=== PATIENT | female | born 1955 | race Caucasian/White ===

== ENCOUNTER 2018-01-11 10:00 | Emergency (ER) | payer OTHER ==
[2018-01-11 10:03] VITALS: BP 109/57; PULSE 97; RESP 20; TEMP 97.4; O2SAT 100
[2018-01-11 10:17] VITALS: BP 130/69; PULSE 92; RESP 16; O2SAT 100
[2018-01-11] MEDS ORDERED: METF500T PO (10:17)
[2018-01-11] MEDS ORDERED: LEVO50TA4 PO (10:17)
[2018-01-11] MEDS ORDERED: LOSA50TA PO (10:17)
[2018-01-11] MEDS ORDERED: METO25TA3 PO (10:17)
[2018-01-11] MEDS ORDERED: LOVA20TA PO (10:17)
[2018-01-11] MEDS ORDERED: ASPI81CH6 CHEW (10:17)
--- NOTE | 2018-01-11 10:20 | PD ---
HPI Chief Complaint: Abdominal Pain Time Seen by Provider: 10:15 Travel History International Travel<30 days: No Contact w/Intl Traveler<30days: No Traveled to known affect area: No History of Present Illness HPI She comes in complaining of an epigastric type pain that is nonradiating, is rated at about a 5 out of 10, burning to sharp, improves with eating, associated with nausea but not necessarily with vomiting. Patient denies any aggravating factors. Patient denies any associated factors such as fever, back pain, flank pain, chest pain, or diarrhea. The patient has a road cutter, straight cutter machine with a endoscopy scheduled for mid March, also [place] Patient is essentially here for breakthrough pain control States allergy to codeine Past medical history significant for hypothyroidism, hypercholesterolemia, hypertension, appendectomy, hysterectomy, diabetes, lupus, anemia, and rheumatoid arthritis PFSH Past Medical History Anemia: Yes Arthritis: Yes (RA) Autoimmune Disease: Yes (lupus) High Cholesterol: Yes Diabetes: Yes Patient Takes Glucophage: Yes Hypertension: Yes Thyroid Disease: Yes Past Surgical History Abdominal Surgery: Yes (bladder sling) Appendectomy: Yes Gynecologic Surgery: Yes Hysterectomy: Yes Social History Alcohol Use: No Tobacco Use: No Substance Use: No Allergies-Medications (Allergen,Severity, Reaction): Coded Allergies: codeine (Verified Allergy, Intermediate, 01/11/18) Reported Meds & Prescriptions Reported Meds & Active Scripts Active Nystatin-Triamcinolone 100,000-0.1 Unit/Gm Oint 1 Applic TOPICAL Q12HR Tramadol (Tramadol HCl) 50 Mg Tab 50 Mg PO Q8H PRN Reported Levothyroxine (Levothyroxine Sodium) 50 Mcg Tab 50 Mcg PO DAILY Metformin (Metformin HCl) 500 Mg Tab 500 Mg PO BIDPC Aspirin Low Dose (Aspirin) 81 Mg Chew 81 Mg CHEW DAILY Lovastatin 20 Mg Tab 20 Mg PO DAILY Metoprolol Tartrate 25 Mg Tab 25 Mg PO BID Losartan (Losartan Potassium) 50 Mg Tab 50 Mg PO DAILY Review of Systems General / Constitutional: No: Fever Eyes: No: Visual changes HENT: No: Headaches Cardiovascular: No: Chest Pain or Discomfort Respiratory: No: Shortness of Breath Gastrointestinal: Positive: Abdominal Pain Genitourinary: No: Dysuria Musculoskeletal: No: Pain Skin: No Rash Neurologic: No: Weakness Psychiatric: No: Depression Endocrine: No: Polydipsia Hematologic/Lymphatic: No: Easy Bruising Physical Exam Narrative GENERAL: SKIN: Warm and dry. HEAD: Atraumatic. Normocephalic. EYES: Pupils equal and round. No scleral icterus. No injection or drainage. ENT: No nasal bleeding or discharge. Mucous membranes pink and moist. NECK: Trachea midline. No JVD. CARDIOVASCULAR: Regular rate and rhythm. RESPIRATORY: No accessory muscle use. Clear to auscultation. Breath sounds equal bilaterally. GASTROINTESTINAL: Abdomen soft, non-tender, nondistended. MUSCULOSKELETAL: Extremities without clubbing, cyanosis, or edema. No obvious deformities. NEUROLOGICAL: Awake and alert. No obvious cranial nerve deficits. Motor grossly within normal limits. Five out of 5 muscle strength in the arms and legs. Normal speech. PSYCHIATRIC: Appropriate mood and affect; insight and judgment normal. Data Data Last Documented VS Vital Signs Date Time Temp Pulse Resp B/P (MAP) Pulse Ox O2 Delivery O2 Flow Rate FiO2 01/11/18 10:26 18 100 Room Air 01/11/18 10:17 92 01/11/18 10:03 97.4 Orders Orders Complete Blood Count With Diff (01/11/18 10:21) Comprehensive Metabolic Panel (01/11/18 10:21) Lipase (01/11/18 10:21) Prothrombin Time / Inr (Pt) (01/11/18 10:21) Act Partial Throm Time (Ptt) (01/11/18 10:21) Urinalysis - C+S If Indicated (01/11/18 10:21) Ct Abd/Pel W/O Iv Contrast (01/11/18 10:21) Iv Access Insert/Monitor (01/11/18 10:21) Ecg Monitoring (01/11/18 10:21) Oximetry (01/11/18 10:21) NPO (01/11/18 10:21) Sodium Chloride 0.9% Flush (Ns Flush) (01/11/18 10:30) Electrocardiogram (01/11/18 10:21) Labs Laboratory Tests Test 01/11/18 10:45 White Blood Count 3.1 TH/MM3 Red Blood Count 3.46 MIL/MM3 Hemoglobin 9.5 GM/DL Hematocrit 28.9 % Mean Corpuscular Volume 83.6 FL Mean Corpuscular Hemoglobin 27.6 PG Mean Corpuscular Hemoglobin Concent 33.0 % Red Cell Distribution Width 17.4 % Platelet Count 187 TH/MM3 Mean Platelet Volume 8.9 FL Neutrophils (%) (Auto) 85.3 % Lymphocytes (%) (Auto) 8.3 % Monocytes (%) (Auto) 5.7 % Eosinophils (%) (Auto) 0.5 % Basophils (%) (Auto) 0.2 % Neutrophils # (Auto) 2.6 TH/MM3 Lymphocytes # (Auto) 0.3 TH/MM3 Monocytes # (Auto) 0.2 TH/MM3 Eosinophils # (Auto) 0.0 TH/MM3 Basophils # (Auto) 0.0 TH/MM3 CBC Comment DIFF FINAL Differential Comment Prothrombin Time 10.0 SEC Prothromb Time International Ratio 1.0 RATIO Activated Partial Thromboplast Time 25.0 SEC Urine Color YELLOW Urine Turbidity CLEAR Urine pH 6.5 Urine Specific [place] 1.016 Urine Protein 30 mg/dL Urine Glucose (UA) NEG mg/dL Urine Ketones NEG mg/dL Urine Occult Blood TRACE Urine Nitrite NEG Urine Bilirubin NEG Urine Urobilinogen LESS THAN 2.0 MG/DL Urine Leukocyte Esterase NEG Urine RBC 1 /hpf Urine WBC 1 /hpf Urine Squamous Epithelial Cells 1 /hpf Urine Mucus FEW /lpf Microscopic Urinalysis Comment CULT NOT INDICATED Blood Urea Nitrogen 13 MG/DL Creatinine 0.49 MG/DL Random Glucose 114 MG/DL Total Protein 8.4 GM/DL Albumin 2.7 GM/DL Calcium Level 8.5 MG/DL Alkaline Phosphatase 56 U/L Aspartate Amino Transf (AST/SGOT) 34 U/L Alanine Aminotransferase (ALT/SGPT) 24 U/L Total Bilirubin 0.2 MG/DL Sodium Level 135 MEQ/L Potassium Level 4.1 MEQ/L Chloride Level 102 MEQ/L Carbon Dioxide Level 26.5 MEQ/L Anion Gap 7 MEQ/L Estimat Glomerular Filtration Rate 128 ML/MIN Lipase 82 U/L [facility] Medical Decision Making Medical Screen Exam Complete: Yes Emergency Medical Condition: Yes Medical Record Reviewed: Yes Differential Diagnosis Pancreatitis versus hepatitis versus peptic ulcer disease versus perforated ulcer versus small bowel obstruction Narrative Course CBC shows WBC count of 3.1, mild anemia of 9.5/28.9, of particular note the patient has previous older labs in which she has a hemoglobin of 10/30. So this is not a new finding this is a chronic finding. Coagulation profile is within normal limits UA does not show any evidence of a UTI Electrolytes are all within normal limits with the exception of a random glucose of 114, normal kidney, liver and lipase function CT abdomen and pelvis shows exophytic left renal mass likely hemorrhagic cyst, elective outpatient follow-up ultrasound is suggested. This has been explained to the patient and a copy of this report will be made available to the patient for her to take to her primary care. Diagnosis Primary Impression: Dyspepsia Patient Instructions: Diet for Stomach Ulcers and Gastritis (ED), General Instructions, Peptic Ulcer (GEN) Scripts Nystatin-Triamcinolone (Nystatin-Triamcinolone) 100,000-0.1 Unit/Gm Oint 1 APPLIC TOPICAL Q12HR for Infection, #60 GM 2 Refills Prov: Dragan Schultz MD 01/11/18 Tramadol (Tramadol) 50 Mg Tab 50 MG PO Q8H Y for PAIN, #15 TAB 0 Refills Prov: Dragan Schultz MD 01/11/18 Disposition: 01 DISCHARGE HOME Condition: Stable Dragan Schultz MD January 11, 2018 10:20
[2018-01-11 10:26] VITALS: RESP 18; O2SAT 100
[2018-01-11] MEDS ORDERED: SODIUM CHLORIDE 0.9% FLUSH 10 ML FLUSH IV FLUSH PRN (10:30)
[2018-01-11 11:10] LABS: AUTOMATED NEUTROPHIL # 2.6 TH/MM3 (1.8-7.7); BASOPHIL % 0.2 % (0.0-2.0); EOSINOPHIL % 0.5 % (0.0-4.0); HEMATOCRIT 28.9 % (35.0-46.0); HEMOGLOBIN 9.5 GM/DL (11.6-15.3); LYMPH % 8.3 % (9.0-44.0); LYMPHOCYTE # 0.3 TH/MM3 (1.0-4.8); MEAN CELL VOLUME 83.6 FL (80.0-100.0); MEAN CORPUSCULAR HEMOGLOBIN 27.6 PG (27.0-34.0); MEAN PLATELET VOLUME 8.9 FL (7.0-11.0); MONO % 5.7 % (0.0-8.0); MONOCYTE # 0.2 TH/MM3 (0-0.9); NEUT % 85.3 % (16.0-70.0); PLATELET COUNT 187 TH/MM3 (150-450); RED BLOOD COUNT 3.46 MIL/MM3 (4.00-5.30); RED CELL DISTRIBUTION WIDTH 17.4 % (11.6-17.2); WHITE BLOOD COUNT 3.1 TH/MM3 (4.0-11.0)
[2018-01-11] MEDS ORDERED: NYST1OIN TOPICAL (11:22)
[2018-01-11] MEDS ORDERED: TRAM50TA PO (11:22)
--- NOTE | 2018-01-11 11:25 | RADRPT ---
EXAM DATE/TIME: 01/11/2018 11:04 [place] COMPARISON: No previous studies available for comparison. INDICATIONS : Abdominal pain. ORAL CONTRAST: No oral contrast ingested. RADIATION DOSE: 4.51 CTDIvol (mGy) MEDICAL HISTORY : Hypertension. Lupus. Rheumatoid arthritis. SURGICAL HISTORY : Appendectomy. ENCOUNTER: Initial ACUITY: 1 week PAIN SCALE: 5/10 LOCATION: Bilateral anterior TECHNIQUE: Volumetric scanning of the abdomen and pelvis was performed. Using automated exposure control and ad justment of the mA and/or kV according to patient size, radiation dose was kept as low as reasonably achievable to obtain optimal diagnostic quality images. DICOM format image data is available electro nically for review and comparison. FINDINGS: LOWER LUNGS: The visualized lower lungs are clear. LIVER: Homogeneous density without lesion. There is no dilation of the biliary tree. No calcified gallston es. SPLEEN: Normal size without lesion. PANCREAS: Within normal limits. KIDNEYS: 16 mm spontaneously dense mass arising exophytically from the posterior midpole cortex of the left ki dney is likely a hemorrhagic cyst. Follow up would be recommended. The right kidney is unremarkable. There is no evidence of hydronephrosis or stone. ADRENAL GLANDS: Within normal limits. VASCULAR: There is no aortic aneurysm. BOWEL/MESENTERY: The stomach, small bowel, and colon demonstrate no acute abnormality. There is no free intraperitone al air or fluid. ABDOMINAL WALL: Within normal limits. RETROPERITONEUM: There is no lymphadenopathy. BLADDER: No wall thickening or mass. REPRODUCTIVE: Within normal limits. INGUINAL: There is no lymphadenopathy or hernia. MUSCULOSKELETAL: Within normal limits for patient age. CONCLUSION: Exophytic left renal mass is likely hemorrhagic cyst. Elective outpatient followup ultrasound would b e suggested. No acute CT findings in the abdomen or pelvis. Best Montoya MD on January 11, 2018 at 11:16 Board Certified Radiologist. This report was verified electronically.
[2018-01-11 11:34] LABS: ALBUMIN 2.7 GM/DL (3.4-5.0); ALT (GPT) 24 U/L (10-53); AST (GOT) 34 U/L (15-37); BICARBONATE 26.5 MEQ/L (21.0-32.0); BLOOD UREA NITROGEN 13 MG/DL (7-18); CALCIUM 8.5 MG/DL (8.5-10.1); CHLORIDE 102 MEQ/L (98-107); CREATININE 0.49 MG/DL (0.50-1.00); GLOMERULAR FILTRATION RATE 128 ML/MIN (>89); GLUCOSE,RANDOM 114 MG/DL (74-106); SODIUM (NA) 135 MEQ/L (136-145)
[2018-01-11 11:35] LABS: BILIRUBIN, URINE NEG (NEG); BLOOD, URINE TRACE (NEG); GLUCOSE,URINE NEG (NEG); KETONE, URINE NEG (NEG); MUCUS URINE FEW /lpf (OCC); NITRITE,URINE NEG (NEG); PH, URINE 6.5 (5.0-8.5); SQUAMOUS EPITHELIAL CELL URINE 1 /hpf (0-5); URINE COLOR YELLOW (YELLW/STRAW); URINE LEUKOCYTE ESTERASE NEG (NEG)
[2018-01-11 11:36] LABS: ALKALINE PHOSPHATASE 56 U/L (45-117); TOTAL BILIRUBIN ADULT 0.2 MG/DL (0.2-1.0); TOTAL PROTEIN 8.4 GM/DL (6.4-8.2)
--- NOTE | 2018-01-12 19:13 | EKG ---
Date Performed: 01/11/2018 Time Performed: 10:51:44 PTAGE: 62 years EKG: Sinus rhythm LOW QRS VOLTAGE IN EXTREMITY LEADS BORDERLINE ECG INTERPRETATION BASED ON A DEFAULT AGE OF 39 YEARS NO PREVIOUS TRACING DOCTOR: Dalton Randolph Interpretating Date/Time 01/12/2018 19:12:26
== END 2018-01-11 13:39 | disposition home or self-care (01) ==
LOC: NEPC 10:00
DX: R10.13 Epigastric pain (principal); E03.9 Hypothyroidism, unspecified; E11.9 Type 2 diabetes mellitus without complications; E78.00 Pure hypercholesterolemia, unspecified; I10 Essential (primary) hypertension; M32.9 Systemic lupus erythematosus, unspecified; Z79.84 Long term (current) use of oral hypoglycemic drugs
CPT/HCPCS: 74176; 80053; 81001; 83690; 85025; 85610; 85730; 93005

== ENCOUNTER 2018-01-18 07:47 | Observation (INO) | payer SELFPAY ==
[~2018-01-18] VITALS: Ht 144.8 cm; Wt 41.0 kg
[2018-01-18] VITALS (12 sets, daily range): BP systolic 88–112; BP diastolic 54–82; PULSE 82–107; RESP 17–20; TEMP 98.1–100.1; O2SAT 97–100
[~2018-01-18 07:47] MED LIST: ASPI81CH6 CHEW; LEVO50TA4 PO; LOSA50TA PO; LOVA20TA PO; METF500T PO; METO25TA3 PO; NYST1OIN TOPICAL; TRAM50TA PO
[2018-01-18 08:26] LABS: AUTOMATED NEUTROPHIL # 3.1 TH/MM3 (1.8-7.7); BASOPHIL % 0.3 % (0.0-2.0); HEMATOCRIT 25.4 % (35.0-46.0); HEMOGLOBIN 8.4 GM/DL (11.6-15.3); LYMPH % 4.4 % (9.0-44.0); LYMPHOCYTE # 0.2 TH/MM3 (1.0-4.8); MEAN CELL VOLUME 83.5 FL (80.0-100.0); MEAN CORPUSCULAR HEMOGLOBIN 27.6 PG (27.0-34.0); MEAN CORPUSCULAR HGB CONC 33.1 % (32.0-36.0); MEAN PLATELET VOLUME 8.6 FL (7.0-11.0); MONO % 3.7 % (0.0-8.0); MONOCYTE # 0.1 TH/MM3 (0-0.9); NEUT % 91.6 % (16.0-70.0); PLATELET COUNT 152 TH/MM3 (150-450); RED BLOOD COUNT 3.04 MIL/MM3 (4.00-5.30); RED CELL DISTRIBUTION WIDTH 16.9 % (11.6-17.2); WHITE BLOOD COUNT 3.4 TH/MM3 (4.0-11.0)
[2018-01-18 08:52] LABS: ALT (GPT) 35 U/L (10-53)
[2018-01-18 08:55] LABS: ALKALINE PHOSPHATASE 64 U/L (45-117); TOTAL BILIRUBIN ADULT 0.6 MG/DL (0.2-1.0); TOTAL PROTEIN 9.3 GM/DL (6.4-8.2)
[2018-01-18] MEDS ORDERED: SODIUM CHLOR 0.9% 250 ML INJ 250 ML IV ONE ×2 (09:00→10:45)
[2018-01-18 09:16] LABS: ALBUMIN 2.3 GM/DL (3.4-5.0); AST (GOT) 94 U/L (15-37); BICARBONATE 21.7 MEQ/L (21.0-32.0); BLOOD UREA NITROGEN 9 MG/DL (7-18); CALCIUM 8.1 MG/DL (8.5-10.1); CHLORIDE 99 MEQ/L (98-107); CREATININE 0.52 MG/DL (0.50-1.00); GLOMERULAR FILTRATION RATE 119 ML/MIN (>89); GLUCOSE,RANDOM 149 MG/DL (74-106); SODIUM (NA) 130 MEQ/L (136-145)
--- NOTE | 2018-01-18 10:34 | PD ---
HPI Chief Complaint: General Weakness Time Seen by Provider: 08:31 Travel History International Travel<30 days: No Contact w/Intl Traveler<30days: No Traveled to known affect area: No History of Present Illness HPI This 61-year-old woman presents to the emergency department complaining of weakness, worsening, especially with exertion, and feeling out of breath, ongoing for the past several weeks. More short of breath for the past day or so. Heart rate was up in the 130s last night. She was seen in the emergency department recently where she had workup that showed mild anemia was diagnosed with dyspepsia. She is taking NSAIDs regularly for couple weeks leading up to that. She stopped those about a week or so ago. She has extensive medical history including lupus and rheumatoid arthritis. She has been on Plaquenil and prednisone in the past for her rheumatologic disease but has not been for the past 2 years. She is worried she may be having a flare of her lupus. She also has had anemia in the past. Unclear etiology. She has never had transfusion. She is scheduled to have an endoscopy in a month or so. She recently moved to the area and has several specialist including her primary, Dr. Almaraz, since [place], Dr. Chapin who is her room inspector, Dr. Kody Waters who is here pv design engineer, Dr. Brando Friend who is a fieldwork coordinator, all on the left side of the [facility] or in [place]. She has some darker colored loose stools several days ago. Nothing recently. History Past Medical History Narrative Medical Hypothyroidism Hyperlipidemia Hypertension Lupus/RA Diabetes Anemia Social History Alcohol Use: No Tobacco Use: No Allergies-Medications (Allergen,Severity, Reaction): Coded Allergies: codeine (Verified Allergy, Intermediate, 01/18/18) Reported Meds & Prescriptions Reported Meds & Active Scripts Active Nystatin-Triamcinolone 100,000-0.1 Unit/Gm Oint 1 Applic TOPICAL Q12HR Tramadol (Tramadol HCl) 50 Mg Tab 50 Mg PO Q8H PRN Reported Levothyroxine (Levothyroxine Sodium) 50 Mcg Tab 50 Mcg PO DAILY Metformin (Metformin HCl) 500 Mg Tab 500 Mg PO BIDPC Aspirin Low Dose (Aspirin) 81 Mg Chew 81 Mg CHEW DAILY Lovastatin 20 Mg Tab 20 Mg PO DAILY Metoprolol Tartrate 25 Mg Tab 25 Mg PO BID Losartan (Losartan Potassium) 50 Mg Tab 50 Mg PO DAILY Review of Systems Except as stated in HPI: all other systems reviewed are Neg Physical Exam Narrative GENERAL: Weak appearing, frail, 62-year-old woman, no acute distress. SKIN: Focused skin assessment warm/dry. HEAD: Atraumatic. Normocephalic. EYES: Pupils equal and round. No scleral icterus. No injection or drainage. ENT: No nasal bleeding or discharge. Mucous membranes pink and moist. NECK: Trachea midline. No JVD. CARDIOVASCULAR: Regular rate and rhythm. No murmur appreciated. RESPIRATORY: No accessory muscle use. Clear to auscultation. Breath sounds equal bilaterally. GASTROINTESTINAL: Abdomen soft, non-tender, nondistended. Hepatic and splenic margins not palpable. MUSCULOSKELETAL: No obvious deformities. No edema. NEUROLOGICAL: Awake and alert. No obvious cranial nerve deficits. Motor grossly within normal limits. Generally weak. Normal speech. PSYCHIATRIC: Appropriate mood and affect; insight and judgment normal. Data Data Last Documented VS Vital Signs Date Time Temp Pulse Resp B/P (MAP) Pulse Ox O2 Delivery O2 Flow Rate FiO2 01/18/18 08:42 107 17 88/82 (84) 100 Room Air Orders Orders Complete Blood Count With Diff (01/18/18 08:00) Comprehensive Metabolic Panel (01/18/18 08:00) Urinalysis - C+S If Indicated (01/18/18 08:00) Electrocardiogram (01/18/18 ) Type And Screen (01/18/18 08:55) Red Blood Cells (Rbc) (01/18/18 08:55) Sodium Chlor 0.9% 250 Ml Inj (Ns 250 Ml (01/18/18 09:00) Blood Product Administration (01/18/18 10:34) Sodium Chlor 0.9% 250 Ml Inj (Ns 250 Ml (01/18/18 10:45) Admit Order (Ed Use Only) (01/18/18 ) Labs Laboratory Tests Test 01/18/18 08:16 White Blood Count 3.4 TH/MM3 Red Blood Count 3.04 MIL/MM3 Hemoglobin 8.4 GM/DL Hematocrit 25.4 % Mean Corpuscular Volume 83.5 FL Mean Corpuscular Hemoglobin 27.6 PG Mean Corpuscular Hemoglobin Concent 33.1 % Red Cell Distribution Width 16.9 % Platelet Count 152 TH/MM3 Mean Platelet Volume 8.6 FL Neutrophils (%) (Auto) 91.6 % Lymphocytes (%) (Auto) 4.4 % Monocytes (%) (Auto) 3.7 % Eosinophils (%) (Auto) 0.0 % Basophils (%) (Auto) 0.3 % Neutrophils # (Auto) 3.1 TH/MM3 Lymphocytes # (Auto) 0.2 TH/MM3 Monocytes # (Auto) 0.1 TH/MM3 Eosinophils # (Auto) 0.0 TH/MM3 Basophils # (Auto) 0.0 TH/MM3 CBC Comment DIFF FINAL Differential Comment Blood Urea Nitrogen 9 MG/DL Creatinine 0.52 MG/DL Random Glucose 149 MG/DL Total Protein 9.3 GM/DL Albumin 2.3 GM/DL Calcium Level 8.1 MG/DL Alkaline Phosphatase 64 U/L Aspartate Amino Transf (AST/SGOT) 94 U/L Alanine Aminotransferase (ALT/SGPT) 35 U/L Total Bilirubin 0.6 MG/DL Sodium Level 130 MEQ/L Potassium Level 4.0 MEQ/L Chloride Level 99 MEQ/L Carbon Dioxide Level 21.7 MEQ/L Anion Gap 9 MEQ/L Estimat Glomerular Filtration Rate 119 ML/MIN [facility] Medical Decision Making Medical Screen Exam Complete: Yes Emergency Medical Condition: Yes Interpretation(s) My review of EKG: Sinus tachycardia rate 101, normal axis, normal intervals, no acute ischemia. Small voltage. LABS: CBC is remarkable for mild anemia, hemoglobin 8.4, down from 9.5 one week ago CMP general unremarkable, total protein is 9.3 Differential Diagnosis GI bleed, anemia, lupus flare, other Narrative Course Medical decision making Is a 61-year-old woman presents to the emergency department with generalized weakness, increasing shortness of breath, rapid heart rate, borderline low blood pressures. Overall well. Guaiac was negative. History suspicious for NSAID gastritis with worsening anemia and GI bleed. Rheumatologic disease flare also possible. Will recommend admission, transfusion, reassessment. [facility] Point of Care Internal Pos. & Neg. Controls: Passed Fecal Specimen Occult Blood: Negative Diagnosis Primary Impression: Symptomatic anemia Additional Impression: Lupus Admitting Information Admitting Physician Requests: Admit Jorge Driscoll MD January 18, 2018 10:34
[2018-01-18] MEDS ORDERED: ONDANSETRON ODT 4 MG TAB PO PRN (11:00)
[2018-01-18] MEDS ORDERED: ACETAMINOPHEN/HYDROcodone 325 MG/7.5 MG TAB PO PRN (11:00)
[2018-01-18] MEDS ORDERED: MAGNESIUM HYDROXIDE SUSP 30 ML CUP PO PRN (11:00)
[2018-01-18] MEDS ORDERED: methylPREDNISolone SOD SUCC 125 MG/2 ML VIAL IV PUSH ONE (11:00)
[2018-01-18] MEDS ORDERED: SODIUM CHLORIDE 0.9% FLUSH 10 ML FLUSH IV FLUSH PRN (11:00)
[2018-01-18] MEDS ORDERED: NALOXONE HCL 0.4 MG/ML AMP IV PUSH PRN (11:00)
[2018-01-18] MEDS ORDERED: ACETAMINOPHEN/HYDROcodone 325 MG/5 MG TAB PO PRN (11:00)
[2018-01-18 11:38] LABS: BACTERIA, URINE RARE /hpf; BILIRUBIN, URINE NEG (NEG); BLOOD, URINE MOD (NEG); GLUCOSE,URINE NEG (NEG); KETONE, URINE TRACE mg/dL (NEG); MUCUS URINE FEW /lpf (OCC); NITRITE,URINE NEG (NEG); PH, URINE 6.5 (5.0-8.5); TRANSITIONAL EPI CELLS, URINE <1 /hpf; URINE COLOR YELLOW (YELLW/STRAW); URINE LEUKOCYTE ESTERASE TRACE (NEG)
[2018-01-18] MEDS ORDERED: GLUCAGON 1 MG/ML VIAL OTHER PRN (11:45)
[2018-01-18] MEDS ORDERED: DEXTROSE 50% IN WATER 50 ML VIAL(D50) IV PUSH PRN (11:45)
[2018-01-18] MEDS: INSULIN ASPART SUPPLEMENTAL SCALE SQ SCH ×3 (12:00→20:24)
--- NOTE | 2018-01-18 12:02 | HHI.HP ---
[facility] Primary Care Physician Non-Staff Admission Diagnosis Symptomatic anemia, lupus Diagnoses: Travel History International Travel<30 Days: No Contact w/Intl Traveler <30 Da: No Traveled to Known Affected Are: No History of Present Illness Mrs. Anne is a 62 year old female. She has a history of lupus. Other medical conditions include diabetes mellitus type 2 and hypothyroidism. She says that recently she has been feeling weak, increased joint pains, chronic nausea, decreased appetite, fatigue, rash, and weight loss. Previously she had been on Plaquenil and steroids to help control her lupus. She had discontinued these treatments about 1.5 to 2 years ago. For about a year she had felt well but in the past 6 months to 12 months she has had a gradual decline. Recently she has been having shortness of breath which became concerning to her family and she was encouraged to come visit the ER. She was found to be anemic and shows multiple evidence use of lupus exacerbation. Etiology for her anemia may be related to poor p.o. intake combined with inflammation and chronic disease. Further studies are pending. No other complaints at this time. Review of Systems Constitutional: COMPLAINS OF: Fatigue, DENIES: Fever, Night Sweats Eyes: DENIES: Diplopia, Eye inflammation, Eye pain Ears, nose, mouth, throat: DENIES: Hearing loss, Vertigo, Nasal discharge Respiratory: DENIES: Apneas, Cough Cardiovascular: COMPLAINS OF: Dyspnea on Exertion, DENIES: Chest pain, Palpitations, Syncope Gastrointestinal: COMPLAINS OF: Abdominal pain, Nausea, DENIES: Black stools, Bloody stools Musculoskeletal: COMPLAINS OF: Joint pain, Muscle aches, Joint Swelling, Back pain Integumentary: COMPLAINS OF: Rash Hematologic/lymphatic: DENIES: Bruising, Lymphadenopathy Immunologic/allergic: DENIES: Eczema, Urticaria Neurologic: COMPLAINS OF: Abnormal gait, Headache, DENIES: Speech Problems Psychiatric: DENIES: Anxiety, Confusion, Depression Past Family Social History Past Medical History Hypothyroidism Hyperlipidemia Hypertension Lupus/RA Diabetes type II Chronic anemia Past Surgical History Hysterectomy Bladder sling Appendectomy Reported Medications Reported Meds & Active Scripts Active Nystatin-Triamcinolone 100,000-0.1 Unit/Gm Oint 1 Applic TOPICAL Q12HR Tramadol (Tramadol HCl) 50 Mg Tab 50 Mg PO Q8H PRN Reported Levothyroxine (Levothyroxine Sodium) 50 Mcg Tab 50 Mcg PO DAILY Metformin (Metformin HCl) 500 Mg Tab 500 Mg PO BIDPC Aspirin Low Dose (Aspirin) 81 Mg Chew 81 Mg CHEW DAILY Lovastatin 20 Mg Tab 20 Mg PO DAILY Metoprolol Tartrate 25 Mg Tab 25 Mg PO BID Losartan (Losartan Potassium) 50 Mg Tab 50 Mg PO DAILY Allergies: Coded Allergies: codeine (Verified Allergy, Intermediate, 01/18/18) Family History CVA myocardial infarction in father Coronary artery disease in mother Social History No smoking No alcohol abuse No illicit drug abuse Physical Exam Vital Signs Vital Signs Date Time Temp Pulse Resp B/P (MAP) Pulse Ox O2 Delivery O2 Flow Rate FiO2 01/18/18 08:42 107 17 88/82 (84) 100 Room Air 01/18/18 08:02 110 16 100 Room Air Physical Exam GENERAL: NAD, A&Ox3 HEAD: Normocephalic. NECK: Supple, trachea midline. No lymphadenopathy. EYES: No scleral icterus. No injection or drainage. CARDIOVASCULAR: Regular rate and rhythm without murmurs, gallops, or rubs. RESPIRATORY: Breath sounds equal bilaterally. No accessory muscle use. GASTROINTESTINAL: Abdomen soft, non-tender, nondistended. MUSCULOSKELETAL: No cyanosis, or edema. Pain in joints with range of motion and palpation. SKIN: Warm and dry. Rash on back, mild. NEURO: No focal neurological deficitis. Laboratory Laboratory Tests Test 01/18/18 08:16 01/18/18 11:13 White Blood Count 3.4 Red Blood Count 3.04 Hemoglobin 8.4 Hematocrit 25.4 Mean Corpuscular Volume 83.5 Mean Corpuscular Hemoglobin 27.6 Mean Corpuscular Hemoglobin Concent 33.1 Red Cell Distribution Width 16.9 Platelet Count 152 Mean Platelet Volume 8.6 Neutrophils (%) (Auto) 91.6 Lymphocytes (%) (Auto) 4.4 Monocytes (%) (Auto) 3.7 Eosinophils (%) (Auto) 0.0 Basophils (%) (Auto) 0.3 Neutrophils # (Auto) 3.1 Lymphocytes # (Auto) 0.2 Monocytes # (Auto) 0.1 Eosinophils # (Auto) 0.0 Basophils # (Auto) 0.0 CBC Comment DIFF FINAL Differential Comment Blood Urea Nitrogen 9 Creatinine 0.52 Random Glucose 149 Total Protein 9.3 Albumin 2.3 Calcium Level 8.1 Alkaline Phosphatase 64 Aspartate Amino Transf (AST/SGOT) 94 Alanine Aminotransferase (ALT/SGPT) 35 Total Bilirubin 0.6 Sodium Level 130 Potassium Level 4.0 Chloride Level 99 Carbon Dioxide Level 21.7 Anion Gap 9 Estimat Glomerular Filtration Rate 119 Urine Color YELLOW Urine Turbidity CLEAR Urine pH 6.5 Urine Specific [place] 1.016 Urine Protein 300 Urine Glucose (UA) NEG Urine Ketones TRACE Urine Occult Blood MOD Urine Nitrite NEG Urine Bilirubin NEG Urine Urobilinogen LESS THAN 2.0 Urine Leukocyte Esterase TRACE Urine RBC 13 Urine WBC 4 Urine Transitional Epithelial Cells <1 Urine Bacteria RARE Urine Mucus FEW Microscopic Urinalysis Comment CULT NOT INDICATED Result Diagram: 01/18/1881501/18/1816 Caprini VTE Risk Assessment Caprini VTE Risk Assessment: No/Low Risk (score <= 1) Caprini Risk Assessment Model Point Value = 1 Point Value = 2 Point Value = 3 Point Value = 5 Age 41-60 Minor surgery BMI > 25 kg/m2 Swollen legs Varicose veins or History of unexplained or recurrent spontaneous Oral contraceptives or hormone replacement Sepsis (< 1 month) Serious lung disease, including pneumonia (< 1 month) Abnormal pulmonary function Acute myocardial infarction Congestive heart failure (< 1 month) History of inflammatory bowel disease Medical patient at bed rest Age 61-74 Arthroscopic surgery Major open surgery (> 45 min) Laparoscopic surgery (> 45 min) Malignancy Confined to bed (> 72 hours) Immobilizing plaster cast Central venous access Age >= 75 History of VTE Family history of VTE Factor V Leiden Prothrombin [id number] Lupus anticoagulant Anticardiolipin antibodies Elevated serum homocysteine Heparin-induced thrombocytopenia Other congenital or acquired thrombophilia Stroke (< 1 month) Elective arthroplasty Hip, pelvis, or leg fracture Acute spinal cord injury (< 1 month) Prophylaxis Regimen Total Risk Factor Score Risk Level Prophylaxis Regimen 0-1 Low Early ambulation 2 Moderate Order ONE of the following: *Sequential Compression Device (SCD) *Heparin 5000 units SQ BID 3-4 Higher Order ONE of the following medications: *Heparin 5000 units SQ TID *Enoxaparin/Lovenox 40 mg SQ daily (WT < 150 kg, CrCl > 30 mL/min) *Enoxaparin/Lovenox 30 mg SQ daily (WT < 150 kg, CrCl > 10-29 mL/min) *Enoxaparin/Lovenox 30 mg SQ BID (WT < 150 kg, CrCl > 30 mL/min) AND/OR *Sequential Compression Device (SCD) 5 or more Highest Order ONE of the following medications: *Heparin 5000 units SQ TID (Preferred with Epidurals) *Enoxaparin/Lovenox 40 mg SQ daily (WT < 150 kg, CrCl > 30 mL/min) *Enoxaparin/Lovenox 30 mg SQ daily (WT < 150 kg, CrCl > 10-29 mL/min) *Enoxaparin/Lovenox 30 mg SQ BID (WT < 150 kg, CrCl > 30 mL/min) AND *Sequential Compression Device (SCD) Assessment and Plan Problem List: (1) Acute anemia ICD Code: D64.9 - Anemia, unspecified (2) Exacerbation of systemic lupus ICD Code: M32.9 - Systemic lupus erythematosus, unspecified (3) Lupus ICD Code: L93.0 - Discoid lupus erythematosus Status: Acute (4) Symptomatic anemia ICD Code: D64.9 - Anemia, unspecified Status: Acute Assessment and Plan 62-year-old female admitted secondary to lupus exacerbation with findings of acute anemia Lupus exacerbation Rheumatoid arthritis Weakness Start systemic steroids Check echocardiogram for carditis or pericardial effusion, given shortness of breath PT IV Hydration for now Follow for improvements Acute anemia on chronic anemia Shortness of breath 2 units of packed red blood cells ordered for transfusion Echocardiogram as above Check stool for blood Check iron studies Check B12 Hypothyroidism Recent blood check as an outpatient was within normal limits Continue supplementation Follow as an outpatient Hyperlipidemia Continue present treatment Follow as an outpatient Hypertension Continue baseline treatments Follow blood pressures Diabetes mellitus type 2 Follow blood sugars Insulin sliding scale Diabetic diet DVT prophylaxis SCDs Cesar Garza MD January 18, 2018 12:02
[2018-01-18] MEDS: SODIUM CHLOR 0.9% 1000 ML INJ 1,000 ML IV SCH ×2 (12:08→20:24)
[2018-01-18] MEDS: SODIUM CHLORIDE 0.9% FLUSH 10 ML FLUSH IV FLUSH SCH (20:24)
[2018-01-18] MEDS: METOPROLOL TARTRATE 25 MG TAB PO SCH (20:24)
[2018-01-18] MEDS: NYSTATIN/TRIAMCINOLONE OINT 15 GM TUBE TOPICAL SCH (20:27)
--- NOTE | 2018-01-18 22:14 | EKG ---
Date Performed: 01/18/2018 Time Performed: 08:04:04 PTAGE: 62 years EKG: SINUS TACHYCARDIA LOW QRS VOLTAGE ABNORMAL ECG PREVIOUS TRACING : 01/11/2018 10.51 Since the previous tracing, no significant change noted DOCTOR: Blade Cisneros Interpretating Date/Time 01/18/2018 22:13:38
[2018-01-18] MEDS: methylPREDNISolone SOD SUCC 40 MG/1 ML VIAL IV PUSH SCH (23:21)
[2018-01-19] VITALS (11 sets, daily range): BP systolic 113–153; BP diastolic 57–84; PULSE 59–69; RESP 16–18; TEMP 97.5–98; O2SAT 98–100
[2018-01-19] MEDS: LEVOTHYROXINE SODIUM 50 MCG TAB PO SCH (06:41)
[2018-01-19] MEDS: SODIUM CHLOR 0.9% 1000 ML INJ 1,000 ML IV SCH ×2 (06:59→18:13)
[2018-01-19] MEDS: INSULIN ASPART SUPPLEMENTAL SCALE SQ SCH ×4 (08:00→20:27)
[2018-01-19] MEDS: NYSTATIN/TRIAMCINOLONE OINT 15 GM TUBE TOPICAL SCH ×2 (09:00→20:28)
[2018-01-19] MEDS: ASPIRIN 81 MG CHEW TAB CHEW SCH (09:06)
[2018-01-19] MEDS: PRAVASTATIN SOD 20 MG TAB PO SCH (09:06)
[2018-01-19] MEDS: methylPREDNISolone SOD SUCC 40 MG/1 ML VIAL IV PUSH SCH ×2 (09:06→22:33)
[2018-01-19] MEDS: METOPROLOL TARTRATE 25 MG TAB PO SCH ×2 (09:07→20:27)
[2018-01-19] MEDS: LOSARTAN 50 MG TAB PO SCH (09:07)
[2018-01-19] MEDS: SODIUM CHLORIDE 0.9% FLUSH 10 ML FLUSH IV FLUSH SCH ×2 (09:08→20:27)
[2018-01-19 09:42] LABS: AUTOMATED NEUTROPHIL # 1.2 TH/MM3 (1.8-7.7); BASOPHIL % 0.1 % (0.0-2.0); HEMATOCRIT 39.3 % (35.0-46.0); HEMOGLOBIN 13.4 GM/DL (11.6-15.3); LYMPH % 14.2 % (9.0-44.0); LYMPHOCYTE # 0.2 TH/MM3 (1.0-4.8); MEAN CELL VOLUME 84.9 FL (80.0-100.0); MEAN CORPUSCULAR HGB CONC 34.2 % (32.0-36.0); MEAN PLATELET VOLUME 8.7 FL (7.0-11.0); MONO % 5.7 % (0.0-8.0); MONOCYTE # 0.1 TH/MM3 (0-0.9); PLATELET COUNT 112 TH/MM3 (150-450); RED BLOOD COUNT 4.62 MIL/MM3 (4.00-5.30); RED CELL DISTRIBUTION WIDTH 16.6 % (11.6-17.2); WHITE BLOOD COUNT 1.5 TH/MM3 (4.0-11.0)
[2018-01-19 10:27] LABS: ALBUMIN 2.2 GM/DL (3.4-5.0); ALT (GPT) 39 U/L (10-53); AST (GOT) 62 U/L (15-37); BICARBONATE 21.7 MEQ/L (21.0-32.0); BLOOD UREA NITROGEN 20 MG/DL (7-18); CHLORIDE 102 MEQ/L (98-107); CHOLESTEROL 156 MG/DL (120-200); CREATININE 0.52 MG/DL (0.50-1.00); GLOMERULAR FILTRATION RATE 119 ML/MIN (>89); GLUCOSE,RANDOM 139 MG/DL (74-106); SODIUM (NA) 136 MEQ/L (136-145); TRIGLYCERIDES 115 MG/DL (42-150)
[2018-01-19 10:32] LABS: % SATURATION IRON PROFILE 32.5 % (20-50); ALKALINE PHOSPHATASE 67 U/L (45-117); HDL CHOLESTEROL 35.4 MG/DL (40.0-60.0); IRON (FE) 60 MCG/DL (50-170); LDL CHOLESTEROL 98 MG/DL (0-99); TOTAL BILIRUBIN ADULT 0.5 MG/DL (0.2-1.0); TOTAL IRON BINDING CAPACITY 185 MCG/DL (250-450); TOTAL PROTEIN 8.1 GM/DL (6.4-8.2)
[2018-01-19 11:02] LABS: BANDS 4 % (0-6); LYMPHOCYTES 9 % (9-44); MONOCYTES 2 % (0-8); NEUTROPHIL # MANUAL DIFF 1.3 TH/MM3 (1.8-7.7); POLYS (SEG NEUTROPHILS) 84 % (16-70)
[2018-01-19 11:03] LABS: OVALOCYTES 1+ (NORMAL)
[2018-01-19 11:05] LABS: TEARDROP RBCS 1+ (NORMAL)
--- NOTE | 2018-01-19 13:01 | HHI.PR ---
Subjective Remarks Patient is starting to feel better. Leukopenia seen this morning which is progressed from yesterday. No fevers overnight. Echocardiogram pending. Objective Vital Signs Date Time Temp Pulse Resp B/P (MAP) Pulse Ox O2 Delivery O2 Flow Rate FiO2 01/19/18 12:43 98.0 59 16 123/57 (79) 98 01/19/18 11:53 69 01/19/18 07:55 66 01/19/18 07:32 98.0 65 16 124/68 (86) 100 01/19/18 03:52 97.7 68 18 137/65 (89) 100 01/19/18 00:32 97.8 66 18 153/84 (107) 100 01/18/18 20:20 98.7 82 18 112/58 98 01/18/18 19:05 98.9 88 20 110/60 (77) 98 01/18/18 17:47 98.1 90 18 110/63 100 01/18/18 17:21 98.4 86 18 108/59 100 01/18/18 15:53 99.4 106 18 96/54 (68) 97 01/18/18 13:52 98.7 97 18 109/62 99 01/18/18 13:29 98.4 96 18 106/61 100 01/18/18 13:07 98.3 100 18 106/63 100 I/O 01/18/18 01/18/18 01/18/18 01/19/18 01/19/18 01/19/18 07:00 15:00 23:00 07:00 15:00 23:00 Intake Total 10 ml 820 ml Balance 10 ml 820 ml Intake Packed Cells 800 ml Blood Product IV Normal Saline Flush 10 ml 20 ml # Voids 2 Result Diagram: 01/19/18 0844 01/19/18 0844 Objective Remarks GENERAL: NAD, A&Ox3 HEAD: Normocephalic. NECK: Supple, trachea midline. No lymphadenopathy. EYES: No scleral icterus. No injection or drainage. CARDIOVASCULAR: Regular rate and rhythm without murmurs, gallops, or rubs. RESPIRATORY: Breath sounds equal bilaterally. No accessory muscle use. GASTROINTESTINAL: Abdomen soft, non-tender, nondistended. MUSCULOSKELETAL: No cyanosis, or edema. Joint tenderness with range of motion ( decreased). SKIN: Warm and dry. NEURO: No focal neurological deficitis. A/P Problem List: (1) Symptomatic anemia ICD Code: D64.9 - Anemia, unspecified Status: Acute (2) Lupus ICD Code: L93.0 - Discoid lupus erythematosus Status: Acute (3) Acute anemia ICD Code: D64.9 - Anemia, unspecified (4) Exacerbation of systemic lupus ICD Code: M32.9 - Systemic lupus erythematosus, unspecified Assessment and Plan Assessment and Plan 62-year-old female admitted secondary to lupus exacerbation with findings of acute anemia Symptoms are improving. Leukopenia is present and progressive thus far. Leukopenia Etiology may be related to lupus and/or a paroxysmal effect from steroids. Continue to monitor Consider hematology consult if progression continues tomorrow Lupus exacerbation Rheumatoid arthritis Weakness Start systemic steroids Check echocardiogram for carditis or pericardial effusion, given shortness of breath PT IV Hydration for now Follow for improvements Acute anemia on chronic anemia Shortness of breath 2 units of packed red blood cells ordered for transfusion Echocardiogram as above Check stool for blood Check iron studies Check B12 Hypothyroidism Recent blood check as an outpatient was within normal limits Continue supplementation Follow as an outpatient Hyperlipidemia Continue present treatment Follow as an outpatient Hypertension Continue baseline treatments Follow blood pressures Diabetes mellitus type 2 Follow blood sugars Insulin sliding scale Diabetic diet DVT prophylaxis SCDs Cesar Garza MD January 19, 2018 13:01
--- NOTE | 2018-01-19 16:31 | ECHRPT ---
Indication: EF ASSESSMENT CONCLUSIONS Normal left ventricular size. Wall thickness is measured at the upper limits of normal. The left ventricular systolic function is normal with an estimated ejection fraction in the range of 50-55%. No regional wall motion abnormalities are present. No significant valvular abnormalities. BP: 106 / 63 HR: 100 Rhythm: Sinus MEASUREMENTS (Male / Female) Normal Values Technical Quality:Good 2D ECHO LV Diastolic Diameter PLAX 3.9 cm 4.2 - 5.9 / 3.9 - 5.3 cm LV Systolic Diameter PLAX 3.1 cm IVS Diastolic Thickness 0.9 cm 0.6 - 1.0 / 0.6 - 0.9 cm LVPW Diastolic Thickness 0.9 cm 0.6 - 1.0 / 0.6 - 0.9 cm LV Relative Wall Thickness 0.4 RV Internal Dim ED PLAX 2.1 cm LV Ejection Fraction MOD BP 49.2 % >= 55 % LV Cardiac Index MOD BP 2262.4 cm/minm LV Ejection Fraction MOD 4C 48.5 % LV Cardiac Index MOD 4C 2574.5 cm/minm LV Ejection Fraction 4C AL 50.9 % LV Cardiac Index 4C AL 2733.8 cm/minm LV Ejection Fraction MOD 2C 53.1 % LV Cardiac Index MOD 2C 2028.4 cm/minm LV Ejection Fraction 2C AL 57.7 % LV Cardiac Index 2C AL 2228.3 cm/minm FINDINGS LEFT VENTRICLE Normal left ventricular size. Wall thickness is measured at the upper limits of normal. The left ventricular systolic function is normal with an estimated ejection fraction in the range of 50-55%. No regional wall motion abnormalities are present. RIGHT VENTRICLE Normal right ventricular size and systolic function. LEFT ATRIUM The left atrial size is normal. RIGHT ATRIUM The right atrial size is normal. ATRIAL SEPTUM Normal atrial septal thickness without atrial level shunting by limited color doppler interrogation. AORTA The aortic root and proximal ascending aorta are normal in size on limited imaging. MITRAL VALVE Structurally normal mitral valve. No mitral valve stenosis or regurgitation. AORTIC VALVE Trileaflet aortic valve. No aortic valve stenosis or regurgitation. TRICUSPID VALVE Structurally normal tricuspid valve. No tricuspid valve stenosis or regurgitation. PULMONARY VALVE The pulmonary valve is not well visualized. VESSELS The inferior vena cava is normal in size. PERICARDIUM No pericardial effusion. Gaurav Case MD (Electronically Signed) Final Date:19 Jan 2018 16:30
[2018-01-20] VITALS: PULSE 57
[2018-01-20 03:58] VITALS: BP 136/65; PULSE 54; RESP 16; TEMP 97.4; O2SAT 99
[2018-01-20 04:00] VITALS: PULSE 56
[2018-01-20] MEDS: LEVOTHYROXINE SODIUM 50 MCG TAB PO SCH (05:46)
[2018-01-20] MEDS: SODIUM CHLOR 0.9% 1000 ML INJ 1,000 ML IV SCH (05:46)
[2018-01-20 08:00] VITALS: BP 134/69; PULSE 52; RESP 18; TEMP 96; O2SAT 98
[2018-01-20] MEDS: INSULIN ASPART SUPPLEMENTAL SCALE SQ SCH ×2 (08:00→13:00)
[2018-01-20] MEDS: PRAVASTATIN SOD 20 MG TAB PO SCH (08:34)
[2018-01-20] MEDS: ASPIRIN 81 MG CHEW TAB CHEW SCH (08:34)
[2018-01-20] MEDS: LOSARTAN 50 MG TAB PO SCH (08:35)
[2018-01-20] MEDS: SODIUM CHLORIDE 0.9% FLUSH 10 ML FLUSH IV FLUSH SCH (08:35)
[2018-01-20] MEDS: NYSTATIN/TRIAMCINOLONE OINT 15 GM TUBE TOPICAL SCH (09:00)
[2018-01-20 12:00] VITALS: BP 142/72; PULSE 60; RESP 19; TEMP 95.5; O2SAT 100
[2018-01-20 12:36] LABS: AUTOMATED NEUTROPHIL # 2.2 TH/MM3 (1.8-7.7); BASOPHIL % 0.1 % (0.0-2.0); HEMATOCRIT 38.5 % (35.0-46.0); HEMOGLOBIN 12.9 GM/DL (11.6-15.3); LYMPH % 7.4 % (9.0-44.0); LYMPHOCYTE # 0.2 TH/MM3 (1.0-4.8); MEAN CELL VOLUME 86.1 FL (80.0-100.0); MEAN CORPUSCULAR HEMOGLOBIN 28.8 PG (27.0-34.0); MEAN CORPUSCULAR HGB CONC 33.5 % (32.0-36.0); MONO % 8.5 % (0.0-8.0); MONOCYTE # 0.2 TH/MM3 (0-0.9); PLATELET COUNT 145 TH/MM3 (150-450); RED BLOOD COUNT 4.47 MIL/MM3 (4.00-5.30); WHITE BLOOD COUNT 2.7 TH/MM3 (4.0-11.0)
[2018-01-20] MEDS: METOPROLOL TARTRATE 25 MG TAB PO SCH (13:09)
[2018-01-20] MEDS: methylPREDNISolone SOD SUCC 40 MG/1 ML VIAL IV PUSH SCH (13:15)
[2018-01-20] MEDS ORDERED: PRED20 PO (13:31)
[2018-01-20] MEDS ORDERED: PRED10 PO ×2 (13:31→14:00)
[2018-01-20 14:34] LABS: ALBUMIN 2.2 GM/DL (3.4-5.0); AST (GOT) 69 U/L (15-37); BICARBONATE 23.1 MEQ/L (21.0-32.0); BLOOD UREA NITROGEN 24 MG/DL (7-18); CALCIUM 7.9 MG/DL (8.5-10.1); CHLORIDE 107 MEQ/L (98-107); CREATININE 0.58 MG/DL (0.50-1.00); GLOMERULAR FILTRATION RATE 105 ML/MIN (>89); GLUCOSE,RANDOM 157 MG/DL (74-106); SODIUM (NA) 139 MEQ/L (136-145)
--- NOTE | 2018-01-20 14:37 | HHI.DS ---
Discharge Summary Admission Date January 18, 2018 at 11:01 Discharge Date: January 20, 2018 Admitting Diagnosis Symptomatic anemia, lupus (1) Acute anemia ICD Code: D64.9 - Anemia, unspecified (2) Exacerbation of systemic lupus ICD Code: M32.9 - Systemic lupus erythematosus, unspecified (3) Lupus ICD Code: L93.0 - Discoid lupus erythematosus Status: Acute (4) Symptomatic anemia ICD Code: D64.9 - Anemia, unspecified Status: Acute Procedures None Brief History - From Admission Mrs. Anne is a 62 year old female. She has a history of lupus. Other medical conditions include diabetes mellitus type 2 and hypothyroidism. She says that recently she has been feeling weak, increased joint pains, chronic nausea, decreased appetite, fatigue, rash, and weight loss. Previously she had been on Plaquenil and steroids to help control her lupus. She had discontinued these treatments about 1.5 to 2 years ago. For about a year she had felt well but in the past 6 months to 12 months she has had a gradual decline. Recently she has been having shortness of breath which became concerning to her family and she was encouraged to come visit the ER. She was found to be anemic and shows multiple evidence use of lupus exacerbation. Etiology for her anemia may be related to poor p.o. intake combined with inflammation and chronic disease. Further studies are pending. No other complaints at this time. CBC/BMP: 01/20/18 1147 01/20/18 1147 Significant Findings Laboratory Tests Test 01/18/18 08:16 01/18/18 11:13 01/19/18 08:44 01/20/18 11:47 White Blood Count 3.4 TH/MM3 (4.0-11.0) 1.5 TH/MM3 (4.0-11.0) 2.7 TH/MM3 (4.0-11.0) Red Blood Count 3.04 MIL/MM3 (4.00-5.30) Hemoglobin 8.4 GM/DL (11.6-15.3) Hematocrit 25.4 % (35.0-46.0) Neutrophils (%) (Auto) 91.6 % (16.0-70.0) 80.0 % (16.0-70.0) 84.0 % (16.0-70.0) Lymphocytes (%) (Auto) 4.4 % (9.0-44.0) 7.4 % (9.0-44.0) Lymphocytes # (Auto) 0.2 TH/MM3 (1.0-4.8) 0.2 TH/MM3 (1.0-4.8) 0.2 TH/MM3 (1.0-4.8) Random Glucose 149 MG/DL (74-106) 139 MG/DL (74-106) 157 MG/DL (74-106) Total Protein 9.3 GM/DL (6.4-8.2) Albumin 2.3 GM/DL (3.4-5.0) 2.2 GM/DL (3.4-5.0) 2.2 GM/DL (3.4-5.0) Calcium Level 8.1 MG/DL (8.5-10.1) 8.0 MG/DL (8.5-10.1) 7.9 MG/DL (8.5-10.1) Aspartate Amino Transf (AST/SGOT) 94 U/L (15-37) 62 U/L (15-37) 69 U/L (15-37) Sodium Level 130 MEQ/L (136-145) Urine Protein 300 mg/dL (NEG-TRACE) Urine Ketones TRACE mg/dL (NEG) Urine Occult Blood MOD (NEG) Urine Leukocyte Esterase TRACE (NEG) Urine RBC 13 /hpf (0-3) Urine Bacteria RARE /hpf (NONE) Urine Mucus FEW /lpf (OCC) Platelet Count 112 TH/MM3 (150-450) 145 TH/MM3 (150-450) Neutrophils # (Auto) 1.2 TH/MM3 (1.8-7.7) Neutrophils % (Manual) 84 % (16-70) Neutrophils # (Manual) 1.3 TH/MM3 (1.8-7.7) Platelet Estimate LOW (NORMAL) Tear Drop Cells 1+ (NORMAL) Ovalocytes 1+ (NORMAL) Erythrocyte Sedimentation Rate 77 mm/hr (0-30) Blood Urea Nitrogen 20 MG/DL (7-18) 24 MG/DL (7-18) Total Iron Binding Capacity 185 MCG/DL (250-450) C-Reactive Protein 1.30 MG/DL (0.00-0.30) HDL Cholesterol 35.4 MG/DL (40.0-60.0) Monocytes (%) (Auto) 8.5 % (0.0-8.0) Potassium Level 3.3 MEQ/L (3.5-5.1) Hospital Course Mrs. Anne is a 62-year-old female. She was admitted secondary to lupus exacerbation. She also had a low hemoglobin and was transfused packed red blood cells. Her anemia has corrected. With systemic steroids her inflammatory symptoms have improved. She had paroxysmal decrease in her white blood cell count which may be related to lupus and/or steroids. This was monitored overnight and she has an upward trend this morning. She continues to improve in regards to her joint pains and malaise. She will continue on steroids with a taper over 2 weeks. At this point she is medically clear and stable for discharge home. Outpatient follow-up with PCP regarding optimize management for her autoimmunity. Pt Condition on Discharge: Stable Discharge Disposition: Discharge Home Discharge Time: <= 30 minutes Discharge Instructions DIET: Follow Instructions for: As Tolerated, No Restrictions Activities you can perform: Regular-No Restrictions Follow up Referrals: PCP Follow-up - 2 Weeks New Medications: Prednisone (Prednisone) 10 Mg Tab 10 MG PO DIRECTED for Inflammation, #8 TAB 0 Refills Taper Treatment: 1 pill twice a day for Day 1-2 1 pill once a day for Day 3-4 1/2 pill once a day for Day 5-8 Then stop Prednisone (Prednisone) 20 Mg Tab 20 MG PO BID for Inflammation, #14 TAB 0 Refills Use this treatment first, then use taper treatment. Prednisone (Prednisone) 10 Mg Tab 10 MG PO DAILY for Inflammation, #30 TAB 1 Refill Use this only IF Bolus and Taper of prednisone fails. Continued Medications: Aspirin (Aspirin Low Dose) 81 Mg Chew 81 MG CHEW DAILY, TAB 0 Refills Levothyroxine (Levothyroxine) 50 Mcg Tab 50 MCG PO DAILY for Thyroid, #30 TAB 0 Refills Losartan (Losartan) 50 Mg Tab 50 MG PO DAILY for Blood Pressure Management, #30 TAB 0 Refills Lovastatin (Lovastatin) 20 Mg Tab 20 MG PO DAILY for Cholesterol Management, #30 TAB 0 Refills Metformin (Metformin) 500 Mg Tab 500 MG PO BIDPC for Blood Sugar Management, #60 TAB 0 Refills Metoprolol Tartrate (Metoprolol Tartrate) 25 Mg Tab 25 MG PO BID, #60 TAB 0 Refills Nystatin-Triamcinolone (Nystatin-Triamcinolone) 100,000-0.1 Unit/Gm Oint 1 APPLIC TOPICAL Q12HR for Infection, #60 GM 2 Refills Tramadol (Tramadol) 50 Mg Tab 50 MG PO Q8H PRN for PAIN, #15 TAB 0 Refills Cesar Garza MD January 20, 2018 14:37
[2018-01-20 14:43] LABS: ALKALINE PHOSPHATASE 68 U/L (45-117); ALT (GPT) 52 U/L (10-53); TOTAL BILIRUBIN ADULT 0.2 MG/DL (0.2-1.0); TOTAL PROTEIN 7.5 GM/DL (6.4-8.2)
[2018-01-20] MEDS ORDERED: POTASSIUM CHLORIDE 10 MEQ CONTROLLED RELEASE TAB PO ONE (14:45)
== END 2018-01-20 14:55 | disposition home or self-care (01) ==
LOC: NEPE 07:47 → NEDA 11:01 → NEPGCP 12:01
PROVIDERS: ADMIT Hospitalist; ATTEND Hospitalist
DX: D64.9 Anemia, unspecified (principal); M32.9 Systemic lupus erythematosus, unspecified; R06.02 Shortness of breath; R10.13 Epigastric pain; M06.9 Rheumatoid arthritis, unspecified; E03.9 Hypothyroidism, unspecified; E78.5 Hyperlipidemia, unspecified; I10 Essential (primary) hypertension; E11.9 Type 2 diabetes mellitus without complications; M25.50 Pain in unspecified joint; R11.0 Nausea; R63.4 Abnormal weight loss
CPT/HCPCS: 36430; 80053; 80061; 81001; 82607; 82948; 83540; 83550; 85007; 85025; 85027; 85652; 86140; 86850; 86900; 86901; 86920; 93005; 93308; 96361; 96372; 96374; 96376; 97162; 99285; G0378; G8987; G8988; J1815; J2920; J2930; J7030; P9016

== ENCOUNTER 2018-01-24 16:13 | Observation (INO) | payer OTHER ==
[~2018-01-24] VITALS: Ht 149.9 cm; Wt 40.0 kg
[~2018-01-24 16:13] MED LIST changes: +PRED10 PO; +PRED20 PO
[2018-01-24] MEDS ORDERED: SODIUM CHLORIDE 0.9% FLUSH 10 ML FLUSH IVF PRN ×2 (16:30)
--- NOTE | 2018-01-24 16:43 | PD ---
HPI Chief Complaint: General Weakness Time Seen by Provider: 16:23 Travel History International Travel<30 days: No Contact w/Intl Traveler<30days: No Traveled to known affect area: No History of Present Illness HPI 62-year-old female presents with pain that started in her chest and went up into her neck. She states she felt like her arm got numb. She states that she called an ambulance and they brought her here. She states that she also got a little bit of a headache but that starting to go away. She denies recurrent history of this. Quality is pressure. Severity is moderate. She denies specific modifying factors. She states when she got up to go the bathroom she felt a little bit wobbly. She denies any fall. PFSH Past Medical History Anemia: Yes Arthritis: Yes (RA) Autoimmune Disease: Yes (lupus) High Cholesterol: Yes Diabetes: Yes Hypertension: Yes Thyroid Disease: Yes Past Surgical History Abdominal Surgery: Yes (bladder sling) Appendectomy: Yes Gynecologic Surgery: Yes Hysterectomy: Yes Social History Alcohol Use: No Tobacco Use: No Substance Use: No Allergies-Medications (Allergen,Severity, Reaction): Coded Allergies: codeine (Verified Allergy, Intermediate, 01/24/18) Reported Meds & Prescriptions Reported Meds & Active Scripts Active Prednisone 10 Mg Tab 10 Mg PO DAILY Use this only IF Bolus and Taper of prednisone fails. Prednisone 20 Mg Tab 20 Mg PO BID Use this treatment first, then use taper treatment. Prednisone 10 Mg Tab 10 Mg PO DIRECTED Taper Treatment: 1 pill twice a day for Day 1-2 1 pill once a day for Day 3-4 1/2 pill once a day for Day 5-8 Then stop Nystatin-Triamcinolone 100,000-0.1 Unit/Gm Oint 1 Applic TOPICAL Q12HR Tramadol (Tramadol HCl) 50 Mg Tab 50 Mg PO Q8H PRN Reported Levothyroxine (Levothyroxine Sodium) 50 Mcg Tab 50 Mcg PO DAILY Metformin (Metformin HCl) 500 Mg Tab 500 Mg PO BIDPC Aspirin Low Dose (Aspirin) 81 Mg Chew 81 Mg CHEW DAILY Lovastatin 20 Mg Tab 20 Mg PO DAILY Metoprolol Tartrate 25 Mg Tab 25 Mg PO BID Losartan (Losartan Potassium) 50 Mg Tab 50 Mg PO DAILY Review of Systems Except as stated in HPI: all other systems reviewed are Neg Physical Exam Narrative GENERAL: 62 y/o female in no apparent distress SKIN: Focused skin assessment warm/dry. HEAD: Atraumatic. Normocephalic. EYES: Pupils equal and round. No scleral icterus. No injection or drainage. ENT: No nasal bleeding or discharge. Mucous membranes pink and moist. NECK: Trachea midline. CARDIOVASCULAR: Regular rate and rhythm. RESPIRATORY: No accessory muscle use. Clear to auscultation. Breath sounds equal bilaterally. GASTROINTESTINAL: Abdomen soft, non-tender, nondistended. MUSCULOSKELETAL: No obvious deformities. No clubbing. No cyanosis. NEUROLOGICAL: Awake and alert. No obvious cranial nerve deficits. Motor grossly within normal limits. Normal speech. Equal grasp bilaterally PSYCHIATRIC: Appropriate mood and affect; insight and judgment normal. Data Data Last Documented VS Vital Signs Date Time Temp Pulse Resp B/P (MAP) Pulse Ox O2 Delivery O2 Flow Rate FiO2 01/24/18 17:13 98.1 62 14 198/93 (128) 99 Room Air Orders Orders Complete Blood Count With Diff (01/24/18 16:23) Comprehensive Metabolic Panel (01/24/18 16:23) Prothrombin Time / Inr (Pt) (01/24/18 16:23) Act Partial Throm Time (Ptt) (01/24/18 16:23) Ct Brain W/O Iv Contrast(Rout) (01/24/18 16:23) Ecg Monitoring (01/24/18 16:23) Iv Access Insert/Monitor (01/24/18 16:23) Oximetry (01/24/18 16:23) Sodium Chloride 0.9% Flush (Ns Flush) (01/24/18 16:30) Electrocardiogram (01/24/18 ) Electrocardiogram (01/24/18 16:29) Chest, Single Ap (01/24/18 16:29) Bilateral Bp Monitoring (01/24/18 16:29) Sodium Chloride 0.9% Flush (Ns Flush) (01/24/18 16:30) Nitroglycerin Sl (Nitrostat Sl) (01/24/18 16:45) Ckmb (Isoenzyme) Profile (01/24/18 16:55) Magnesium (Mg) (01/24/18 16:55) Troponin I (01/24/18 16:55) Labs Laboratory Tests Test 01/24/18 16:55 White Blood Count 7.5 TH/MM3 Red Blood Count 4.57 MIL/MM3 Hemoglobin 13.2 GM/DL Hematocrit 39.4 % Mean Corpuscular Volume 86.1 FL Mean Corpuscular Hemoglobin 29.0 PG Mean Corpuscular Hemoglobin Concent 33.6 % Red Cell Distribution Width 16.9 % Platelet Count 157 TH/MM3 Mean Platelet Volume 8.8 FL Neutrophils (%) (Auto) 94.5 % Lymphocytes (%) (Auto) 2.3 % Monocytes (%) (Auto) 2.9 % Eosinophils (%) (Auto) 0.0 % Basophils (%) (Auto) 0.3 % Neutrophils # (Auto) 7.1 TH/MM3 Lymphocytes # (Auto) 0.2 TH/MM3 Monocytes # (Auto) 0.2 TH/MM3 Eosinophils # (Auto) 0.0 TH/MM3 Basophils # (Auto) 0.0 TH/MM3 CBC Comment DIFF FINAL Differential Comment Prothrombin Time 10.3 SEC Prothromb Time International Ratio 1.0 RATIO Activated Partial Thromboplast Time 21.3 SEC Blood Urea Nitrogen 13 MG/DL Creatinine 0.35 MG/DL Random Glucose 127 MG/DL Total Protein 7.3 GM/DL Albumin 2.4 GM/DL Calcium Level 8.3 MG/DL Magnesium Level 1.7 MG/DL Alkaline Phosphatase 62 U/L Aspartate Amino Transf (AST/SGOT) 33 U/L Alanine Aminotransferase (ALT/SGPT) 41 U/L Total Bilirubin 0.7 MG/DL Sodium Level 136 MEQ/L Potassium Level 3.9 MEQ/L Chloride Level 101 MEQ/L Carbon Dioxide Level 25.3 MEQ/L Anion Gap 10 MEQ/L Estimat Glomerular Filtration Rate 188 ML/MIN Total Creatine Kinase 27 U/L Troponin I LESS THAN 0.02 NG/ML MDM Medical Decision Making Medical Screen Exam Complete: Yes Emergency Medical Condition: Yes Medical Record Reviewed: Yes (pmh confirmed) Differential Diagnosis Atypical cardiac, anemia, hypertensive urgency, musculoskeletal Narrative Course Will check blood work, chest x-ray, CT brain and reevaluate Physician Communication Physician Communication dr shaw to follow workup and revaluate Ayana Proctor MD January 24, 2018 16:43
[2018-01-24] MEDS ORDERED: NITROGLYCERIN 0.4 MG SL 25 TABS/BTL SL ONE (16:45)
[2018-01-24 17:13] VITALS: BP 198/93; PULSE 62; RESP 14; TEMP 98.1; O2SAT 99
[2018-01-24 17:15] LABS: PROTHROMBIN TIME - PATIENT 10.3 SEC (9.8-11.6)
[2018-01-24 17:21] LABS: AUTOMATED NEUTROPHIL # 7.1 TH/MM3 (1.8-7.7); BASOPHIL % 0.3 % (0.0-2.0); HEMATOCRIT 39.4 % (35.0-46.0); HEMOGLOBIN 13.2 GM/DL (11.6-15.3); LYMPH % 2.3 % (9.0-44.0); LYMPHOCYTE # 0.2 TH/MM3 (1.0-4.8); MEAN CELL VOLUME 86.1 FL (80.0-100.0); MEAN CORPUSCULAR HGB CONC 33.6 % (32.0-36.0); MEAN PLATELET VOLUME 8.8 FL (7.0-11.0); MONO % 2.9 % (0.0-8.0); MONOCYTE # 0.2 TH/MM3 (0-0.9); NEUT % 94.5 % (16.0-70.0); PLATELET COUNT 157 TH/MM3 (150-450); RED BLOOD COUNT 4.57 MIL/MM3 (4.00-5.30); RED CELL DISTRIBUTION WIDTH 16.9 % (11.6-17.2); WHITE BLOOD COUNT 7.5 TH/MM3 (4.0-11.0)
[2018-01-24 17:26] LABS: ALBUMIN 2.4 GM/DL (3.4-5.0); ALT (GPT) 41 U/L (10-53); AST (GOT) 33 U/L (15-37); BICARBONATE 25.3 MEQ/L (21.0-32.0); BLOOD UREA NITROGEN 13 MG/DL (7-18); CALCIUM 8.3 MG/DL (8.5-10.1); CHLORIDE 101 MEQ/L (98-107); CREATININE 0.35 MG/DL (0.50-1.00); GLOMERULAR FILTRATION RATE 188 ML/MIN (>89); GLUCOSE,RANDOM 127 MG/DL (74-106); MAGNESIUM 1.7 MG/DL (1.5-2.5); SODIUM (NA) 136 MEQ/L (136-145)
[2018-01-24 17:29] LABS: ALKALINE PHOSPHATASE 62 U/L (45-117); TOTAL BILIRUBIN ADULT 0.7 MG/DL (0.2-1.0); TOTAL PROTEIN 7.3 GM/DL (6.4-8.2); TROPONIN I LESS THAN 0.02 NG/ML (0.02-0.05)
--- NOTE | 2018-01-24 17:44 | RADRPT ---
EXAM DATE: 01/24/2018 5:42 PM EDT AGE/SEX: 62 years / Female INDICATIONS: Chest pain. CLINICAL DATA: This is the patient's initial encounter. Patient reports that signs and symptoms have been present for 1 day and indicates a pain score of 10/10. MEDICAL/SURGICAL HISTORY: Hypertension. Diabetes mellitus type II. None. COMPARISON: No prior [facility] exams available for comparison. FINDINGS: A single AP view of the chest demonstrates the lungs to be symmetrically aerated without e vidence of mass, infiltrate or effusion. The cardiomediastinal contours are unremarkable. Osseous s tructures are intact. CONCLUSION: No acute intrathoracic disease. Electronically signed by: Tino Rahman MD 01/24/2018 5:43 PM EDT
[2018-01-24] MEDS ORDERED: traMADol HCL 50 MG TAB PO ONE (18:00)
[2018-01-24 18:14] VITALS: BP 198/95; PULSE 57
[2018-01-24] MEDS ORDERED: ONDANSETRON ODT 4 MG TAB PO ONE (18:15)
--- NOTE | 2018-01-24 18:50 | EKG ---
Date Performed: 01/24/2018 Time Performed: 17:27:53 PTAGE: 62 years EKG: Sinus rhythm POSSIBLE ANTERIOR MYOCARDIAL INFARCTION ABNORMAL ECG Compared to prior electrocardiogram, rate has d ecreased . PREVIOUS TRACING : 01/18/2018 08.04 DOCTOR: Tej Zavala Interpretating Date/Time 01/24/2018 18:49:59
--- NOTE | 2018-01-24 19:11 | RADRPT ---
EXAM DATE: 01/24/2018 6:59 PM EDT AGE/SEX: 62 years / Female INDICATIONS: Cephalgia. CLINICAL DATA: This is the patient's initial encounter. Patient reports that signs and symptoms have been present for 1 day and indicates a pain score of 10/10. MEDICAL/SURGICAL HISTORY: Hypertension. Lupus. Rheumatoid arthritis. Diabetes. Anemia. None. RADIATION DOSE: 34.11 CTDI (mGy) COMPARISON: No prior [facility] exams available for comparison. TECHNIQUE: CT of the head without contrast. Using automated exposure control and adjustment of the mA and/or kV according to patient size, radiation dose was kept as low as reasonably achievable to ob tain optimal diagnostic quality images. FINDINGS: Cerebrum: The ventricles are normal for age. No evidence of midline shift, mass lesion, hemorrhage or acute infarction. No extraaxial fluid collections are seen. Posterior Fossa: The cerebellum and brainstem are intact. The 4th ventricle is midline. The cerebe llopontine angle is unremarkable. Extracranial: The visualized portion of the orbits is intact. Skull: The calvaria is intact. No evidence of skull fracture. Post Contrast: No abnormal areas of parenchymal or dural enhancement. No evidence of blood-brain ba rrier breakdown. CONCLUSION: Negative CT examination. Electronically signed by: Best Alston MD 01/24/2018 7:09 PM EDT
[2018-01-24] MEDS ORDERED: ACETAMINOPHEN 500 MG CPLT PO ONE (19:30)
--- NOTE | 2018-01-24 19:39 | PD ---
Data Data Last Documented VS Vital Signs Date Time Temp Pulse Resp B/P (MAP) Pulse Ox O2 Delivery O2 Flow Rate FiO2 01/24/18 20:06 66 183/90 (121) 01/24/18 19:11 20 01/24/18 17:13 98.1 99 Room Air Orders Orders Complete Blood Count With Diff (01/24/18 16:23) Comprehensive Metabolic Panel (01/24/18 16:23) Prothrombin Time / Inr (Pt) (01/24/18 16:23) Act Partial Throm Time (Ptt) (01/24/18 16:23) Ct Brain W/O Iv Contrast(Rout) (01/24/18 16:23) Ecg Monitoring (01/24/18 16:23) Iv Access Insert/Monitor (01/24/18 16:23) Oximetry (01/24/18 16:23) Sodium Chloride 0.9% Flush (Ns Flush) (01/24/18 16:30) Electrocardiogram (01/24/18 ) Chest, Single Ap (01/24/18 16:29) Bilateral Bp Monitoring (01/24/18 16:29) Sodium Chloride 0.9% Flush (Ns Flush) (01/24/18 16:30) Nitroglycerin Sl (Nitrostat Sl) (01/24/18 16:45) Ckmb (Isoenzyme) Profile (01/24/18 16:55) Magnesium (Mg) (01/24/18 16:55) Troponin I (01/24/18 16:55) Tramadol (Ultram) (01/24/18 18:00) Ondansetron Odt (Zofran Odt) (01/24/18 18:15) Acetaminophen (Tylenol) (01/24/18 19:30) Metoprolol Tartrate (Lopressor) (01/24/18 19:45) Oxycodone-Acetamin 5-325 Mg (Percocet (01/24/18 19:45) Morphine Inj (Morphine Inj) (01/24/18 19:45) Place In Observation (01/24/18 ) Vital Signs (Adult) Q4H (01/24/18 20:16) Activity Oob With Assistance (01/24/18 20:16) Rn Vascular / Telemetry .CONTINUOUS (01/24/18 20:16) Diet Heart Healthy (01/25/18 Breakfast) Sodium Chloride 0.9% Flush (Ns Flush) (01/24/18 20:30) Sodium Chloride 0.9% Flush (Ns Flush) (01/24/18 21:00) Acetaminophen (Tylenol) (01/24/18 20:30) Ondansetron Inj (Zofran Inj) (01/24/18 20:30) Troponin I (01/24/18 20:16) Troponin I (01/25/18 02:16) Electrocardiogram (01/24/18 20:16) Electrocardiogram (01/25/18 02:16) Resp Oxygen Morales C Titrat 1-4 L (01/24/18 ) Scd Bilateral/Knee High EMILY.BID (01/24/18 20:16) Naloxone Inj (Narcan Inj) (01/24/18 20:30) Magnesium Hydroxide Liq (Milk Of Magnesi (01/24/18 20:30) Sennosides (Senokot) (01/24/18 20:30) Bisacodyl Supp (Dulcolax Supp) (01/24/18 20:30) Lactulose Liq (Lactulose Liq) (01/24/18 20:30) Labs Laboratory Tests Test 01/24/18 16:55 White Blood Count 7.5 TH/MM3 Red Blood Count 4.57 MIL/MM3 Hemoglobin 13.2 GM/DL Hematocrit 39.4 % Mean Corpuscular Volume 86.1 FL Mean Corpuscular Hemoglobin 29.0 PG Mean Corpuscular Hemoglobin Concent 33.6 % Red Cell Distribution Width 16.9 % Platelet Count 157 TH/MM3 Mean Platelet Volume 8.8 FL Neutrophils (%) (Auto) 94.5 % Lymphocytes (%) (Auto) 2.3 % Monocytes (%) (Auto) 2.9 % Eosinophils (%) (Auto) 0.0 % Basophils (%) (Auto) 0.3 % Neutrophils # (Auto) 7.1 TH/MM3 Lymphocytes # (Auto) 0.2 TH/MM3 Monocytes # (Auto) 0.2 TH/MM3 Eosinophils # (Auto) 0.0 TH/MM3 Basophils # (Auto) 0.0 TH/MM3 CBC Comment DIFF FINAL Differential Comment Prothrombin Time 10.3 SEC Prothromb Time International Ratio 1.0 RATIO Activated Partial Thromboplast Time 21.3 SEC Blood Urea Nitrogen 13 MG/DL Creatinine 0.35 MG/DL Random Glucose 127 MG/DL Total Protein 7.3 GM/DL Albumin 2.4 GM/DL Calcium Level 8.3 MG/DL Magnesium Level 1.7 MG/DL Alkaline Phosphatase 62 U/L Aspartate Amino Transf (AST/SGOT) 33 U/L Alanine Aminotransferase (ALT/SGPT) 41 U/L Total Bilirubin 0.7 MG/DL Sodium Level 136 MEQ/L Potassium Level 3.9 MEQ/L Chloride Level 101 MEQ/L Carbon Dioxide Level 25.3 MEQ/L Anion Gap 10 MEQ/L Estimat Glomerular Filtration Rate 188 ML/MIN Total Creatine Kinase 27 U/L Troponin I LESS THAN 0.02 NG/ML MDM Supervised Visit with ETELVINA: Yes Interpretation(s) My review of EKG: Normal sinus rhythm at a rate of 60, slight leftward axis with anterior Q waves it could suggest an old RI. LABS: CBC is unremarkable. CMP generally unremarkable. Troponin negative. Coags unremarkable. Chest x-ray: Negative CT head: Negative Narrative Course Is a 62-year-old woman with lupus, multiple recent hospital visits for pain, seem to be dyspepsia from NSAID use, with some symptomatic anemia and recent lupus flare. Now with worsening pain chest stomach and left shoulder. Thinks he may have hurt something moving. She takes tramadol but denies taking stronger medicines on any kind of regular basis. Still feels very uncomfortable of left shoulder pain. Multiple other symptoms including this chest pain, left arm tingling, unsteadiness. Workups unremarkable. Blood pressure remains remains markedly elevated. This point would recommend admission for observation. Jorge Driscoll MD January 24, 2018 19:39
[2018-01-24] MEDS ORDERED: METOPROLOL TARTRATE 25 MG TAB PO ONE (19:45)
[2018-01-24] MEDS ORDERED: MORPHINE SULFATE 4 MG/ML INJ IV PUSH ONE (19:45)
[2018-01-24] MEDS ORDERED: oxyCODONE/ACETAMINOPHEN 5 MG/325 MG TAB PO ONE (19:45)
[2018-01-24 20:06] VITALS: BP 183/90; PULSE 66
[2018-01-24] MEDS ORDERED: MAGNESIUM HYDROXIDE SUSP 30 ML CUP PO PRN (20:30)
[2018-01-24] MEDS ORDERED: NALOXONE HCL 0.4 MG/ML AMP IV PUSH PRN (20:30)
[2018-01-24] MEDS ORDERED: ONDANSETRON HCL 4 MG/2 ML VIAL IVP PRN (20:30)
[2018-01-24] MEDS ORDERED: SENNOSIDES 8.6 MG TAB PO PRN (20:30)
[2018-01-24] MEDS ORDERED: ACETAMINOPHEN 325 MG TAB PO PRN (20:30)
[2018-01-24] MEDS ORDERED: SODIUM CHLORIDE 0.9% FLUSH 10 ML FLUSH IV FLUSH PRN (20:30)
[2018-01-24] MEDS ORDERED: LACTULOSE SYRUP 20 GM/30 ML CUP PO PRN (20:30)
[2018-01-24] MEDS ORDERED: BISACODYL 10 MG SUPP RECTAL PRN (20:30)
[2018-01-24] MEDS: SODIUM CHLORIDE 0.9% FLUSH 10 ML FLUSH IV FLUSH SCH (20:33)
[2018-01-24 21:22] VITALS: BP 175/84; PULSE 57; RESP 20; TEMP 98; O2SAT 96
[2018-01-24 22:05] VITALS: O2SAT 96
--- NOTE | 2018-01-24 22:38 | HHI.HP ---
HPI Service [facility] Primary Care Physician Non-Staff Admission Diagnosis Left shoulder pain, headache, elevated blood pressure, lupus flare Diagnoses: Chief Complaint: chest and shoulder pain Travel History International Travel<30 Days: No Contact w/Intl Traveler <30 Da: No Traveled to Known Affected Are: No History of Present Illness 62 y/o female with a history of lupus, HTN, HLD, hypothyroidism and DM presented to the ED with complaints of chest and shoulder pain. Patient states she may have hurt it moving something. She denies any chest pain at this time, but states her left shoulder pain is a 8/10, aching, intermittent, worse with movement, with radiation to her back and associated nausea. She states she vomited after she was given nitro. She states the morphine has helped. Denies any sob, fever or chills. Review of Systems Except as stated in HPI: all other systems reviewed are Neg Past Family Social History Past Medical History Hypothyroidism Hyperlipidemia Hypertension Lupus/RA Diabetes type II Chronic anemia Past Surgical History Hysterectomy Bladder sling Appendectomy Reported Medications Reported Meds & Active Scripts Active Prednisone 10 Mg Tab 10 Mg PO DAILY Use this only IF Bolus and Taper of prednisone fails. Prednisone 20 Mg Tab 20 Mg PO BID Use this treatment first, then use taper treatment. Prednisone 10 Mg Tab 10 Mg PO DIRECTED Taper Treatment: 1 pill twice a day for Day 1-2 1 pill once a day for Day 3-4 1/2 pill once a day for Day 5-8 Then stop Nystatin-Triamcinolone 100,000-0.1 Unit/Gm Oint 1 Applic TOPICAL Q12HR Tramadol (Tramadol HCl) 50 Mg Tab 50 Mg PO Q8H PRN Reported Levothyroxine (Levothyroxine Sodium) 50 Mcg Tab 50 Mcg PO DAILY Metformin (Metformin HCl) 500 Mg Tab 500 Mg PO BIDPC Aspirin Low Dose (Aspirin) 81 Mg Chew 81 Mg CHEW DAILY Lovastatin 20 Mg Tab 20 Mg PO DAILY Metoprolol Tartrate 25 Mg Tab 25 Mg PO BID Losartan (Losartan Potassium) 50 Mg Tab 50 Mg PO DAILY Allergies: Coded Allergies: codeine (Verified Allergy, Intermediate, 01/24/18) Active Ordered Medications Current Medications Medications (Trade) Dose Ordered Sig/Brian Route Start Time Stop Time Status Last Admin (NS Flush) 2 ml UNSCH PRN IV FLUSH 01/24/18 20:30 (NS Flush) 2 ml BID IV FLUSH 01/24/18 21:00 01/24/18 20:33 (Tylenol) 650 mg Q4H PRN PO 01/24/18 20:30 (Zofran Inj) 4 mg Q6H PRN IVP 01/24/18 20:30 (Narcan Inj) 0.4 mg UNSCH PRN IV PUSH 01/24/18 20:30 (Milk Of Magnesia Liq) 30 ml Q12H PRN PO 01/24/18 20:30 (Senokot) 17.2 mg Q12H PRN PO 01/24/18 20:30 (Dulcolax Supp) 10 mg DAILY PRN RECTAL 01/24/18 20:30 (Lactulose Liq) 30 ml DAILY PRN PO 01/24/18 20:30 Family History Dad: CVA myocardial infarction Mom: Coronary artery disease Social History Patient denies any tobacco, alcohol or illicit drug use Physical Exam Vital Signs Vital Signs Date Time Temp Pulse Resp B/P (MAP) Pulse Ox O2 Delivery O2 Flow Rate FiO2 01/24/18 22:05 96 01/24/18 21:22 98.0 57 20 175/84 (114) 96 Room Air 01/24/18 21:02 20 01/24/18 21:01 20 01/24/18 20:06 66 183/90 (121) 01/24/18 19:11 20 01/24/18 18:14 57 198/95 (129) 01/24/18 17:13 98.1 62 14 198/93 (128) 99 Room Air Physical Exam GENERAL: This is a well-nourished, well-developed patient, in no apparent distress, appears comfortable s/p morphine SKIN: No rashes, ecchymoses or lesions. Cool and dry. HEAD: Atraumatic. Normocephalic. No temporal or scalp tenderness. EYES: Pupils equal round and reactive. Extraocular motions intact. CARDIOVASCULAR: Regular rate and rhythm without murmurs, gallops, or rubs. RESPIRATORY: Clear to auscultation. Breath sounds equal bilaterally. No wheezes , rales, or rhonchi. GASTROINTESTINAL: Abdomen soft, non-tender, nondistended. MUSCULOSKELETAL: Left shoulder tenderness, no calf tenderness NEUROLOGICAL: Awake and alert. Motor and sensory grossly within normal limits. Normal speech. Laboratory Laboratory Tests Test 01/24/18 16:55 01/24/18 21:30 White Blood Count 7.5 Red Blood Count 4.57 Hemoglobin 13.2 Hematocrit 39.4 Mean Corpuscular Volume 86.1 Mean Corpuscular Hemoglobin 29.0 Mean Corpuscular Hemoglobin Concent 33.6 Red Cell Distribution Width 16.9 Platelet Count 157 Mean Platelet Volume 8.8 Neutrophils (%) (Auto) 94.5 Lymphocytes (%) (Auto) 2.3 Monocytes (%) (Auto) 2.9 Eosinophils (%) (Auto) 0.0 Basophils (%) (Auto) 0.3 Neutrophils # (Auto) 7.1 Lymphocytes # (Auto) 0.2 Monocytes # (Auto) 0.2 Eosinophils # (Auto) 0.0 Basophils # (Auto) 0.0 CBC Comment DIFF FINAL Differential Comment Prothrombin Time 10.3 Prothromb Time International Ratio 1.0 Activated Partial Thromboplast Time 21.3 Blood Urea Nitrogen 13 Creatinine 0.35 Random Glucose 127 Total Protein 7.3 Albumin 2.4 Calcium Level 8.3 Magnesium Level 1.7 Alkaline Phosphatase 62 Aspartate Amino Transf (AST/SGOT) 33 Alanine Aminotransferase (ALT/SGPT) 41 Total Bilirubin 0.7 Sodium Level 136 Potassium Level 3.9 Chloride Level 101 Carbon Dioxide Level 25.3 Anion Gap 10 Estimat Glomerular Filtration Rate 188 Total Creatine Kinase 27 Troponin I LESS THAN 0.02 Result Diagram: 01/24/18 1655 01/24/18 1655 Imaging Last Impressions Chest X-Ray 01/24/18 1629 Signed Impressions: CONCLUSION: No acute intrathoracic disease. Head CT 01/24/18 1623 Signed Impressions: CONCLUSION: Caprini VTE Risk Assessment Caprini VTE Risk Assessment: No/Low Risk (score <= 1) Caprini Risk Assessment Model Point Value = 1 Point Value = 2 Point Value = 3 Point Value = 5 Age 41-60 Minor surgery BMI > 25 kg/m2 Swollen legs Varicose veins or History of unexplained or recurrent spontaneous Oral contraceptives or hormone replacement Sepsis (< 1 month) Serious lung disease, including pneumonia (< 1 month) Abnormal pulmonary function Acute myocardial infarction Congestive heart failure (< 1 month) History of inflammatory bowel disease Medical patient at bed rest Age 61-74 Arthroscopic surgery Major open surgery (> 45 min) Laparoscopic surgery (> 45 min) Malignancy Confined to bed (> 72 hours) Immobilizing plaster cast Central venous access Age >= 75 History of VTE Family history of VTE Factor V Leiden Prothrombin [id number] Lupus anticoagulant Anticardiolipin antibodies Elevated serum homocysteine Heparin-induced thrombocytopenia Other congenital or acquired thrombophilia Stroke (< 1 month) Elective arthroplasty Hip, pelvis, or leg fracture Acute spinal cord injury (< 1 month) Prophylaxis Regimen Total Risk Factor Score Risk Level Prophylaxis Regimen 0-1 Low Early ambulation 2 Moderate Order ONE of the following: *Sequential Compression Device (SCD) *Heparin 5000 units SQ BID 3-4 Higher Order ONE of the following medications: *Heparin 5000 units SQ TID *Enoxaparin/Lovenox 40 mg SQ daily (WT < 150 kg, CrCl > 30 mL/min) *Enoxaparin/Lovenox 30 mg SQ daily (WT < 150 kg, CrCl > 10-29 mL/min) *Enoxaparin/Lovenox 30 mg SQ BID (WT < 150 kg, CrCl > 30 mL/min) AND/OR *Sequential Compression Device (SCD) 5 or more Highest Order ONE of the following medications: *Heparin 5000 units SQ TID (Preferred with Epidurals) *Enoxaparin/Lovenox 40 mg SQ daily (WT < 150 kg, CrCl > 30 mL/min) *Enoxaparin/Lovenox 30 mg SQ daily (WT < 150 kg, CrCl > 10-29 mL/min) *Enoxaparin/Lovenox 30 mg SQ BID (WT < 150 kg, CrCl > 30 mL/min) AND *Sequential Compression Device (SCD) Assessment and Plan Assessment and Plan 62 y/o female with a history of lupus, HTN, HLD, hypothyroidism and DM presented to the ED with complaints of chest and shoulder pain. Chest pain, atypical, suspect muscle in nature, r/o ACS Troponin .02, EKG reviewed and shows SR no ST elevation -Serial troponin and EKG -Pain management with IV morphine and PO tramadol Left shoulder pain -Pain management as above -Shoulder x ray ordered HTN, chronic, currently elevated possibly due to pain -Resume home medications losartan and metoprolol -Vasotec IV prn HLD, chronic -Resume home medications lovastatin Lupus, chronic, patient was just restarted on a prednisone taper on Tuesday -Cont prednisone taper, Prednisone 20mg BID for 3 more days and then Taper 10mg tabs..1 pill BID days 1-2, Days 3-4 1 pill daily, days 5-8 1/2 pill daily then stop DM, chronic -Accu checks with SSI -Diabetic diet DVT prophylaxis: SCDs Discussed Condition With Patient, patients family and RN Candice Castillo January 24, 2018 22:38
[2018-01-24] MEDS ORDERED: traMADol HCL 50 MG TAB PO PRN (22:45)
[2018-01-24] MEDS ORDERED: ENALAPRILAT 1.25 MG/ML VIAL IV PUSH PRN (22:45)
[2018-01-24] MEDS: MORPHINE SULFATE 4 MG/ML INJ IV PUSH PRN (23:21)
[2018-01-24] MEDS ORDERED: DEXTROSE 50% IN WATER 50 ML VIAL(D50) IV PUSH PRN (23:30)
[2018-01-24] MEDS ORDERED: GLUCAGON 1 MG/ML VIAL OTHER PRN (23:30)
--- NOTE | 2018-01-25 00:55 | RADRPT ---
EXAM DATE: 01/25/2018 12:49 AM EDT AGE/SEX: 62 years / Female INDICATIONS: Left shoulder pain, no known trauma. CLINICAL DATA: This is the patient's initial encounter. Patient reports that signs and symptoms have been present for 1 day and indicates a pain score of 4/10. MEDICAL/SURGICAL HISTORY: Diabetes mellitus type II. Hypertension. None. COMPARISON: No prior [facility] exams available for comparison. FINDINGS: Bony structures are intact and in normal alignment. Joints are intact without dislocation or signifi cant arthropathy. Osseous density is normal. Soft tissues are unremarkable. No radiopaque foreign bodies seen. CONCLUSION: Negative exam. Electronically signed by: Lit Reardon MD 01/25/2018 12:53 AM EDT
[2018-01-25 02:07] VITALS: BP 165/82; PULSE 62; RESP 18; TEMP 97.8; O2SAT 99
[2018-01-25] MEDS: MORPHINE SULFATE 4 MG/ML INJ IV PUSH PRN (02:19)
[2018-01-25 03:16] VITALS: PULSE 61
[2018-01-25] MEDS: ONDANSETRON ODT 4 MG TAB PO PRN ×2 (04:03→09:19)
[2018-01-25] MEDS ORDERED: LEVOTHYROXINE SODIUM 50 MCG TAB PO SCH (06:00)
[2018-01-25 07:00] VITALS: PULSE 65
[2018-01-25 07:52] VITALS: BP 163/90; PULSE 69; RESP 18; TEMP 97.6; O2SAT 99
[2018-01-25] MEDS: INSULIN ASPART SUPPLEMENTAL SCALE SQ SCH ×3 (07:56→17:00)
[2018-01-25] MEDS ORDERED: PRAVASTATIN SOD 20 MG TAB PO SCH (09:00)
[2018-01-25] MEDS ORDERED: ASPIRIN 81 MG CHEW TAB CHEW SCH (09:00)
[2018-01-25] MEDS ORDERED: predniSONE 20 MG TAB PO SCH (09:00)
[2018-01-25] MEDS ORDERED: LOSARTAN 50 MG TAB PO SCH ×2 (09:00)
[2018-01-25] MEDS ORDERED: METOPROLOL TARTRATE 25 MG TAB PO SCH (09:00)
--- NOTE | 2018-01-25 09:07 | HHI.PR ---
Subjective Remarks F/u chest and shoulder pain. States she was fixing her bed when she developed chest pain. She thinks she may have pulled her left shoulder. No numbness. No history of CAD and stress test. She has abnormal EKG with ST changes in the anterior leads. Objective Vitals Vital Signs Date Time Temp Pulse Resp B/P (MAP) Pulse Ox O2 Delivery O2 Flow Rate FiO2 01/25/18 07:52 97.6 69 18 163/90 (114) 99 01/25/18 03:16 61 01/25/18 02:07 97.8 62 18 165/82 (109) 99 01/24/18 23:04 01/24/18 22:05 96 01/24/18 21:22 98.0 57 20 175/84 (114) 96 Room Air 01/24/18 21:02 20 01/24/18 21:01 20 01/24/18 20:06 66 183/90 (121) 01/24/18 19:11 20 01/24/18 18:14 57 198/95 (129) 01/24/18 17:13 98.1 62 14 198/93 (128) 99 Room Air I/O 01/24/18 01/24/18 01/24/18 01/25/18 01/25/18 01/25/18 07:00 15:00 23:00 07:00 15:00 23:00 Intake Total 240 ml Balance 240 ml Intake Oral 240 ml # Voids 1 Result Diagram: 01/24/18 1655 01/24/18 1655 Imaging Last Impressions Chest X-Ray 01/24/18 1629 Signed Impressions: CONCLUSION: No acute intrathoracic disease. Head CT 01/24/18 1623 Signed Impressions: CONCLUSION: Shoulder X-Ray 01/24/18 0000 Signed Impressions: CONCLUSION: Objective Remarks GENERAL: This is a well-nourished, well-developed patient, in no apparent distress SKIN: No rashes, ecchymoses or lesions. Cool and dry. CARDIOVASCULAR: Regular rate and rhythm without murmurs, gallops, or rubs. RESPIRATORY: Clear to auscultation. Breath sounds equal bilaterally. No wheezes , rales, or rhonchi. GASTROINTESTINAL: Abdomen soft, non-tender, nondistended. MUSCULOSKELETAL: Left shoulder tenderness, no calf tenderness. Full range of movement NEUROLOGICAL: Awake and alert. Motor and sensory grossly within normal limits. Normal speech. A/P Problem List: (1) Chest pain ICD Code: R07.9 - Chest pain, unspecified Assessment and Plan 62 y/o female with a history of lupus, HTN, HLD, hypothyroidism and DM presented to the ED with complaints of chest and shoulder pain. Exertional chest pain currently resolved. Patient ruled out for LA. Continue aspirin and beta-zara will proceed with stress test in light of risk factors and abnormal EKG. Left shoulder pain. Negative x-ray. Pain management and consult physical therapy HTN, chronic, currently elevated possibly due to pain -Resume home medications losartan and metoprolol, will increase losartan 200 mg daily -Vasotec IV prn HLD, chronic -Resume home medications lovastatin Lupus, chronic, patient was just restarted on a prednisone taper on Tuesday -Cont prednisone taper, Prednisone 20mg BID for 3 more days and then Taper 10mg tabs..1 pill BID days 1-2, Days 3-4 1 pill daily, days 5-8 1/2 pill daily then stop DM, chronic -Accu checks with SSI -Diabetic diet DVT prophylaxis: SCDs Discharge Planning Discharge patient to home if negative stress test Condition on discharge: Improved Regular Diet as tolerated Ad Lachelle activity no driving Rx written: None Follow-up with primary care physician Chapito Yanez MD January 25, 2018 09:07
[2018-01-25] MEDS ORDERED: COZA50TA PO (09:13)
--- NOTE | 2018-01-25 09:13 | HHI.DCPOC ---
Discharge Care Plan Diagnosis: (1) Chest pain Your Health Problems Are: Difficulty with ADL Exercise Tolerance Goals to Promote Your Health * To prevent worsening of your condition and complications * To maintain your health at the optimal level Directions to Meet Your Goals Take your medications as prescribed Follow your dietary instruction Follow activity as directed Keep your appointments as scheduled Take your immunizations and boosters as scheduled If your symptoms worsen call your PCP, if no PCP go to Urgent Care Center or Emergency Room Smoking is Dangerous to Your Health. Avoid second hand smoke Call the 24-hour hour crisis hotline for domestic abuse at Chapito Yanez MD January 25, 2018 09:13
[2018-01-25] MEDS: SODIUM CHLORIDE 0.9% FLUSH 10 ML FLUSH IV FLUSH SCH (09:18)
[2018-01-25 11:58] VITALS: BP 166/83; PULSE 78; RESP 18; TEMP 98.4; O2SAT 98
--- NOTE | 2018-01-25 14:39 | EKG ---
Date Performed: 01/25/2018 Time Performed: 02:27:24 PTAGE: 62 years EKG: Sinus rhythm LOW QRS VOLTAGE IN PRECORDIAL LEADS POSSIBLE ANTERIOR MYOCARDIAL INFARCTION BORDERLINE ECG No signif icant change from prior electrocardiogram. PREVIOUS TRACING : 01/24/2018 17.27 DOCTOR: Tej Zavala Interpretating Date/Time 01/25/2018 14:38:54
[2018-01-25] MEDS ORDERED: REGADENOSON INJ 0.4 MG/5 ML SYR ONE ×2 (15:03→15:16)
[2018-01-25] MEDS ORDERED: CITRATED CAFFEINE (IV) 60 MG/3 ML VIAL ONE (15:35)
[2018-01-25 16:20] VITALS: BP 180/92; PULSE 82; RESP 18; TEMP 97.4; O2SAT 100
--- NOTE | 2018-01-25 16:26 | RADRPT ---
EXAM DATE: 01/25/2018 4:22 PM EDT AGE/SEX: 62 years / Female INDICATIONS:Angina. . Chest pain. CLINICAL DATA: This is the patient's initial encounter. Patient reports that signs and symptoms have been present for 1 day and indicates a pain score of 0/10. MEDICAL/SURGICAL HISTORY: Diabetes mellitus type II. Hypertension. Lupus. Appendectomy. Hyst erectomy. COMPARISON: No prior [facility] exams available for comparison. No external comparison. DOSE: 8.5 mCi Tc 99m Myoview at rest 27.1 mCi [id number] at stress 0.4 mg Lexiscan STRESS SYMPTOMS: Nausea and vomiting. MEDICATION: 60 mg caffeine IV EJECTION FRACTION: 52 % TECHNIQUE: The patient underwent pharmacologic stress with infusion of prescribed dose. Continuous ECG tracing was monitored during stress. Gated SPECT imaging was performed after stress and conventi onal SPECT imaging was performed at rest. The examination was performed on a SPECT/CT scanner, both attenuation and non-corrected datasets were reviewed. FINDINGS: Distribution: The maximum perfused segment at stress is in the anterior wall. Perfusion Study: The pattern of perfusion at stress is within normal limits. Gated Study: There are intact wall motion and wall thickening without hypokinetic or dyskinetic segm ents. The ejection fraction is calculated at 52%. RISK CATEGORY: Low (<1% Annual Motality Rate) CONCLUSION: No areas of ischemia are seen. Electronically signed by: Best Alston MD 01/25/2018 4:25 PM EDT
--- NOTE | 2018-01-25 17:33 | HHI.FF ---
Face to Face Verification Diagnosis: (1) Impaired mobility and activities of daily living (2) Generalized weakness (3) Exacerbation of systemic lupus (4) Chest pain Physical Therapy Order: Evaluate and Treat, Improve ambulation, Strength and gait training I have seen patient Cathie Anne on 01/25/18. My clinical findings support the need for the requested home health care services because: Deconditioned w/ increased weakness Limited ability to care for self High risk of falls I certify that my clinical findings support that this patient is homebound because: Unsteady gait/balance Unsafe to leave home unassisted Unable to use public transportation Ebonie Lopez January 25, 2018 17:33
== END 2018-01-25 18:06 | disposition home or self-care (01) ==
LOC: NEPC 16:13 → NEDA 20:18 → NEPHCDU 23:14
PROVIDERS: ADMIT Internal Medicine; ATTEND Internal Medicine
DX: R07.89 Other chest pain (principal); I10 Essential (primary) hypertension; E78.5 Hyperlipidemia, unspecified; E11.9 Type 2 diabetes mellitus without complications; E03.9 Hypothyroidism, unspecified; E78.00 Pure hypercholesterolemia, unspecified; Z79.899 Other long term (current) drug therapy; Z90.710 Acquired absence of both cervix and uterus; Z82.3 Family history of stroke; Z82.49 Family history of ischemic heart disease and other diseases of the circulatory system
CPT/HCPCS: 70450; 71045; 73030; 78452; 80053; 82550; 82948; 83735; 84484; 85025; 85610; 85730; 93005; 93017; 96374; 96376; 97162; 99285; A9502; G0378; G8987; G8988; J0706; J2270; J2785; J7512

== ENCOUNTER 2018-01-26 14:33 | Inpatient (IN) | payer OTHER ==
[~2018-01-26] VITALS: Ht 144.8 cm; Wt 37.3 kg
[~2018-01-26 14:33] MED LIST changes: +COZA50TA PO
[2018-01-26 14:46] VITALS: BP 185/101; PULSE 70; RESP 24; TEMP 97.3; O2SAT 99
[2018-01-26] MEDS ORDERED: SODIUM CHLOR 0.9% 1000 ML INJ 1,000 ML IV SCH ×2 (15:34→17:34)
--- NOTE | 2018-01-26 15:38 | PD ---
HPI Chief Complaint: GI Complaint Time Seen by Provider: 15:25 Travel History International Travel<30 days: No Contact w/Intl Traveler<30days: No Traveled to known affect area: No History of Present Illness HPI this 62-year-old female with history of rheumatoid arthritis, lupus, diabetes, hypothyroidism, hypertension, presents with her for evaluation. For the past year she has had progressive generalized weakness and difficulty with performing activities of daily living. The patient and her moved to the [facility] from [place] 3 months ago and establish care with a new primary care physician in [place]. Over the past several days the patient has had worsening generalized weakness as well as generalized body pain and nausea and vomiting. She has been seen here 4 times this month for evaluation of similar symptoms. Most recently she was admitted on January 24 and discharged yesterday. She presents today because she still has generalized weakness as well as nausea and vomiting. She has had difficulty keeping any food, fluid or medications down secondary to the nausea and vomiting. Focally she denies any chest pain or abdominal pain. Primarily she is having generalized chronic back pain. She denies fevers or chills, cough or congestion. Per chart review she underwent CT the abdomen pelvis on January 11, chest x-ray, shoulder x-ray, head CT on January 24 and myocardial perfusion scan yesterday. She was discharged with a order for home health care however home health care has not yet contacted the family. She was also started on prednisone. [facility] Past Medical History Anemia: Yes Arthritis: Yes (RA) Autoimmune Disease: Yes (lupus) Blood Disorders: Yes (ANEMIA) Heart Rhythm Problems: Yes (MURMURS) Cancer: No Cardiovascular Problems: Yes High Cholesterol: Yes Chest Pain: No Congestive Heart Failure: No Diabetes: Yes Endocrine: Yes Genitourinary: No Hypertension: Yes Immune Disorder: Yes (LUPUS) Musculoskeletal: No Neurologic: No Psychiatric: No Reproductive: No Respiratory: No Thyroid Disease: Yes Past Surgical History Abdominal Surgery: Yes (bladder sling) Appendectomy: Yes Gynecologic Surgery: Yes Hysterectomy: Yes Social History Alcohol Use: No Tobacco Use: No Substance Use: No Allergies-Medications (Allergen,Severity, Reaction): Coded Allergies: codeine (Verified Allergy, Intermediate, 01/24/18) nitroglycerin (Verified Adverse Reaction, Severe, Nausea/Vomiting, 01/25/18 ) Reported Meds & Prescriptions Reported Meds & Active Scripts Active Cozaar (Losartan Potassium) 50 Mg Tab 100 Mg PO DAILY Prednisone 10 Mg Tab 10 Mg PO DAILY Use this only IF Bolus and Taper of prednisone fails. Prednisone 20 Mg Tab 20 Mg PO BID Use this treatment first, then use taper treatment. Prednisone 10 Mg Tab 10 Mg PO DIRECTED Taper Treatment: 1 pill twice a day for Day 1-2 1 pill once a day for Day 3-4 1/2 pill once a day for Day 5-8 Then stop Nystatin-Triamcinolone 100,000-0.1 Unit/Gm Oint 1 Applic TOPICAL Q12HR Tramadol (Tramadol HCl) 50 Mg Tab 50 Mg PO Q8H PRN Reported Levothyroxine (Levothyroxine Sodium) 50 Mcg Tab 50 Mcg PO DAILY Metformin (Metformin HCl) 500 Mg Tab 500 Mg PO BIDPC Aspirin Low Dose (Aspirin) 81 Mg Chew 81 Mg CHEW DAILY Lovastatin 20 Mg Tab 20 Mg PO DAILY Metoprolol Tartrate 25 Mg Tab 25 Mg PO BID Losartan (Losartan Potassium) 50 Mg Tab 50 Mg PO DAILY Review of Systems Except as stated in HPI: all other systems reviewed are Neg Physical Exam Narrative GENERAL: This is a 62-year-old female who appears older than her stated age. SKIN: Warm and dry. HEAD: Atraumatic. Normocephalic. EYES: Pupils equal and round. No scleral icterus. No injection or drainage. ENT: No nasal bleeding or discharge. Mucous membranes pink and moist. NECK: Trachea midline. No JVD. CARDIOVASCULAR: Regular rate and rhythm. No murmur appreciated. RESPIRATORY: No accessory muscle use. Clear to auscultation. Breath sounds equal bilaterally. GASTROINTESTINAL: Abdomen soft, non-tender, nondistended. Hepatic and splenic margins not palpable. MUSCULOSKELETAL: No obvious deformities. No clubbing. No cyanosis. No edema. NEUROLOGICAL: Awake and alert. No obvious cranial nerve deficits. Motor grossly within normal limits. Normal speech. Data Data Last Documented VS Vital Signs Date Time Temp Pulse Resp B/P (MAP) Pulse Ox O2 Delivery O2 Flow Rate FiO2 01/26/18 16:06 81 18 191/96 (127) 99 Room Air 01/26/18 14:46 97.3 Orders Orders Complete Blood Count With Diff (01/26/18 15:34) Comprehensive Metabolic Panel (01/26/18 15:34) Iv Access Insert/Monitor (01/26/18 15:34) Sodium Chlor 0.9% 1000 Ml Inj (Ns 1000 M (01/26/18 15:34) Ondansetron Odt (Zofran Odt) (01/26/18 15:45) Morphine Inj (Morphine Inj) (01/26/18 15:45) Thyroid Stimulating Hormone (01/26/18 15:41) Admit Order (Ed Use Only) (01/26/18 17:31) Magnesium (Mg) (01/26/18 17:33) Vitamin D, 25-Hydroxy (01/26/18 17:33) Labs Laboratory Tests Test 01/26/18 15:50 White Blood Count 7.0 TH/MM3 Red Blood Count 4.93 MIL/MM3 Hemoglobin 14.2 GM/DL Hematocrit 41.7 % Mean Corpuscular Volume 84.6 FL Mean Corpuscular Hemoglobin 28.8 PG Mean Corpuscular Hemoglobin Concent 34.1 % Red Cell Distribution Width 16.4 % Platelet Count 106 TH/MM3 Mean Platelet Volume 9.1 FL Neutrophils (%) (Auto) 90.8 % Lymphocytes (%) (Auto) 2.9 % Monocytes (%) (Auto) 6.1 % Eosinophils (%) (Auto) 0.0 % Basophils (%) (Auto) 0.2 % Neutrophils # (Auto) 6.3 TH/MM3 Lymphocytes # (Auto) 0.2 TH/MM3 Monocytes # (Auto) 0.4 TH/MM3 Eosinophils # (Auto) 0.0 TH/MM3 Basophils # (Auto) 0.0 TH/MM3 CBC Comment DIFF FINAL Differential Comment Blood Urea Nitrogen 11 MG/DL Creatinine 0.37 MG/DL Random Glucose 147 MG/DL Total Protein 7.1 GM/DL Albumin 2.5 GM/DL Calcium Level 8.0 MG/DL Alkaline Phosphatase 64 U/L Aspartate Amino Transf (AST/SGOT) 28 U/L Alanine Aminotransferase (ALT/SGPT) 43 U/L Total Bilirubin 0.8 MG/DL Sodium Level 125 MEQ/L Potassium Level 3.4 MEQ/L Chloride Level 86 MEQ/L Carbon Dioxide Level 28.7 MEQ/L Anion Gap 10 MEQ/L Estimat Glomerular Filtration Rate 176 ML/MIN Magnesium Level 1.7 MG/DL Thyroid Stimulating Hormone 3rd Gen 0.781 uIU/ML MDM Medical Decision Making Medical Screen Exam Complete: Yes Emergency Medical Condition: Yes Medical Record Reviewed: Yes Differential Diagnosis Dehydration, electrolyte abnormality, hypoglycemia, symptomatic anemia, lupus flareup Narrative Course The patient was given IV fluids, morphine and Zofran. Lab work has been ordered. Upon reexamination she feels mildly improved but still reports overall generalized weakness. Lab work reveals a sodium of 125 which is significantly decreased from 2 days ago. This is likely contributing to her acute worsening of her generalized weakness. I discussed the options with the patient and her including sending her home with an antiemetic versus observation overnight for sodium correction and preferences for observational admission. Diagnosis Primary Impression: Hyponatremia Additional Impressions: Nausea and vomiting Generalized weakness Admitting Information Admitting Physician Requests: Observation Tomasz Chavez January 26, 2018 15:38
[2018-01-26] MEDS ORDERED: ONDANSETRON ODT 4 MG TAB PO ONE (15:45)
[2018-01-26] MEDS ORDERED: MORPHINE SULFATE 4 MG/ML INJ IV PUSH ONE (15:45)
[2018-01-26 16:06] VITALS: BP 191/96; PULSE 81; RESP 18; O2SAT 99
[2018-01-26 16:10] LABS: AUTOMATED NEUTROPHIL # 6.3 TH/MM3 (1.8-7.7); BASOPHIL % 0.2 % (0.0-2.0); HEMATOCRIT 41.7 % (35.0-46.0); HEMOGLOBIN 14.2 GM/DL (11.6-15.3); LYMPH % 2.9 % (9.0-44.0); LYMPHOCYTE # 0.2 TH/MM3 (1.0-4.8); MEAN CELL VOLUME 84.6 FL (80.0-100.0); MEAN CORPUSCULAR HEMOGLOBIN 28.8 PG (27.0-34.0); MEAN CORPUSCULAR HGB CONC 34.1 % (32.0-36.0); MEAN PLATELET VOLUME 9.1 FL (7.0-11.0); MONO % 6.1 % (0.0-8.0); MONOCYTE # 0.4 TH/MM3 (0-0.9); NEUT % 90.8 % (16.0-70.0); PLATELET COUNT 106 TH/MM3 (150-450); RED BLOOD COUNT 4.93 MIL/MM3 (4.00-5.30); RED CELL DISTRIBUTION WIDTH 16.4 % (11.6-17.2)
[2018-01-26 16:31] LABS: ALBUMIN 2.5 GM/DL (3.4-5.0); ALKALINE PHOSPHATASE 64 U/L (45-117); ALT (GPT) 43 U/L (10-53); AST (GOT) 28 U/L (15-37); BICARBONATE 28.7 MEQ/L (21.0-32.0); BLOOD UREA NITROGEN 11 MG/DL (7-18); CHLORIDE 86 MEQ/L (98-107); CREATININE 0.37 MG/DL (0.50-1.00); GLOMERULAR FILTRATION RATE 176 ML/MIN (>89); GLUCOSE,RANDOM 147 MG/DL (74-106); SODIUM (NA) 125 MEQ/L (136-145); TOTAL BILIRUBIN ADULT 0.8 MG/DL (0.2-1.0); TOTAL PROTEIN 7.1 GM/DL (6.4-8.2)
[2018-01-26] MEDS ORDERED: BISACODYL 10 MG SUPP RECTAL PRN (17:45)
[2018-01-26] MEDS ORDERED: LACTULOSE SYRUP 20 GM/30 ML CUP PO PRN (17:45)
[2018-01-26] MEDS ORDERED: SENNOSIDES 8.6 MG TAB PO PRN (17:45)
[2018-01-26] MEDS ORDERED: PROCHLORPERAZINE 25 MG SUPP RECTAL PRN (17:45)
[2018-01-26] MEDS ORDERED: SODIUM CHLORIDE 0.9% FLUSH 10 ML FLUSH IV FLUSH PRN (17:45)
[2018-01-26] MEDS ORDERED: NALOXONE HCL 0.4 MG/ML AMP IV PUSH PRN (17:45)
[2018-01-26] MEDS ORDERED: MAGNESIUM HYDROXIDE SUSP 30 ML CUP PO PRN (17:45)
[2018-01-26] MEDS ORDERED: SODIUM CHLOR 0.9% 1000 ML INJ 1,000 ML IV ONE (17:45)
[2018-01-26 18:00] VITALS: BP 166/90; PULSE 64; RESP 18; O2SAT 99
[2018-01-26 20:02] VITALS: BP 193/94; PULSE 71; RESP 16; TEMP 98.7; O2SAT 99
--- NOTE | 2018-01-26 20:22 | HHI.HP ---
HPI Service [facility] Primary Care Physician Non-Staff Admission Diagnosis Hyponatremia, nausea and vomiting Diagnoses: Chief Complaint: Nausea,vomiting, weakness Travel History International Travel<30 Days: No Contact w/Intl Traveler <30 Da: No Traveled to Known Affected Are: No History of Present Illness 62-year-old female with a history of arthritis, lupus, diabetes, hypothyroidism , hypertension presents to the ED for evaluation of generalized weakness. Patient was recently discharged yesterday after a hospital stay for chest pain and shoulder pain. Patient was cleared from a cardiology standpoint and sent home. According to family she has not been able to eat or keep anything down she has been nauseated and vomiting since she has been released from the hospital. She is also complaining of 8/10 back pain, intermittent, throbbing, with associated nausea. Worse with movement but has been better with pain medication. Family also states patient has not had a bowel movement since Tuesday. Family is concerned because patient has been declining healthwise since July and lack of appetite. Upon examination patient is laying in bed dry heaving complaining of back pain and asking for pain medication. Family is afraid to take her home again because they are concerned that she will fall due to her weakness. She denies any associated chest pain, shortness of breath, fever or chills. Review of Systems Except as stated in HPI: all other systems reviewed are Neg Past Family Social History Past Medical History Hypothyroidism Hyperlipidemia Hypertension Lupus/RA Diabetes type II Chronic anemia Past Surgical History Hysterectomy Bladder sling Appendectomy Reported Medications Reported Meds & Active Scripts Active Cozaar (Losartan Potassium) 50 Mg Tab 100 Mg PO DAILY Prednisone 10 Mg Tab 10 Mg PO DAILY Use this only IF Bolus and Taper of prednisone fails. Prednisone 20 Mg Tab 20 Mg PO BID Use this treatment first, then use taper treatment. Prednisone 10 Mg Tab 10 Mg PO DIRECTED Taper Treatment: 1 pill twice a day for Day 1-2 1 pill once a day for Day 3-4 1/2 pill once a day for Day 5-8 Then stop Nystatin-Triamcinolone 100,000-0.1 Unit/Gm Oint 1 Applic TOPICAL Q12HR Tramadol (Tramadol HCl) 50 Mg Tab 50 Mg PO Q8H PRN Reported Levothyroxine (Levothyroxine Sodium) 50 Mcg Tab 50 Mcg PO DAILY Metformin (Metformin HCl) 500 Mg Tab 500 Mg PO BIDPC Aspirin Low Dose (Aspirin) 81 Mg Chew 81 Mg CHEW DAILY Lovastatin 20 Mg Tab 20 Mg PO DAILY Metoprolol Tartrate 25 Mg Tab 25 Mg PO BID Losartan (Losartan Potassium) 50 Mg Tab 50 Mg PO DAILY Allergies: Coded Allergies: codeine (Verified Allergy, Intermediate, 01/24/18) nitroglycerin (Verified Adverse Reaction, Severe, Nausea/Vomiting, 01/25/18 ) Active Ordered Medications Current Medications Medications (Trade) Dose Ordered Sig/Brian Route Start Time Stop Time Status Last Admin (Zofran Odt) 4 mg Q4H PRN PO 01/26/18 17:45 01/26/18 21:32 (NS Flush) 2 ml UNSCH PRN IV FLUSH 01/26/18 17:45 (NS Flush) 2 ml BID IV FLUSH 01/26/18 21:00 (Compazine Supp) 25 mg Q12H PRN RECTAL 01/26/18 17:45 (Narcan Inj) 0.4 mg UNSCH PRN IV PUSH 01/26/18 17:45 (Milk Of Magnesia Liq) 30 ml Q12H PRN PO 01/26/18 17:45 (Senokot) 17.2 mg Q12H PRN PO 01/26/18 17:45 (Dulcolax Supp) 10 mg DAILY PRN RECTAL 01/26/18 17:45 (Lactulose Liq) 30 ml DAILY PRN PO 01/26/18 17:45 (SoluCORTEF INJ) 50 mg Q8HR IV PUSH 01/26/18 18:30 (Vasotec Inj) 1.25 mg Q6H PRN IV PUSH 01/26/18 21:00 01/26/18 21:32 Potassium Chloride/Sodium Chloride 1,000 ml @ 100 mls/hr Q10H IV 01/26/18 21:00 (Aspirin Chew) 81 mg DAILY CHEW 01/27/18 09:00 (Synthroid) 50 mcg DAILY@0600 PO 01/27/18 06:00 (Cozaar) 50 mg DAILY PO 01/27/18 09:00 (Pravachol) 20 mg DAILY PO 01/27/18 09:00 (Lopressor) 25 mg BID PO 01/26/18 21:00 01/26/18 21:32 (Protonix Inj) 40 mg Q12H IV PUSH 01/26/18 22:00 (Vitamin D3) 1,000 units DAILY PO 01/27/18 09:00 Family History Dad: CVA myocardial infarction Mom: Coronary artery disease Social History Patient denies any tobacco, alcohol or illicit drug use Physical Exam Vital Signs Vital Signs Date Time Temp Pulse Resp B/P (MAP) Pulse Ox O2 Delivery O2 Flow Rate FiO2 01/26/18 20:02 98.7 71 16 193/94 (127) 99 01/26/18 18:00 64 18 166/90 (115) 99 Room Air 01/26/18 16:06 81 18 191/96 (127) 99 Room Air 01/26/18 16:06 18 01/26/18 16:02 18 01/26/18 14:46 97.3 70 24 185/101 (129) 99 Physical Exam GENERAL: This is a well-nourished, well-developed patient, in no apparent distress, appears comfortable s/p morphine SKIN: No rashes, ecchymoses or lesions. Cool and dry. HEAD: Atraumatic. Normocephalic. No temporal or scalp tenderness. EYES: Pupils equal round and reactive. Extraocular motions intact. CARDIOVASCULAR: Regular rate and rhythm without murmurs, gallops, or rubs. RESPIRATORY: Clear to auscultation. Breath sounds equal bilaterally. No wheezes , rales, or rhonchi. GASTROINTESTINAL: Abdomen soft, non-tender, nondistended. Mild CVA tenderness MUSCULOSKELETAL: Left shoulder tenderness, no calf tenderness NEUROLOGICAL: Awake and alert. Motor and sensory grossly within normal limits. Normal speech. Laboratory Laboratory Tests Test 01/26/18 15:50 01/26/18 18:18 White Blood Count 7.0 Red Blood Count 4.93 Hemoglobin 14.2 Hematocrit 41.7 Mean Corpuscular Volume 84.6 Mean Corpuscular Hemoglobin 28.8 Mean Corpuscular Hemoglobin Concent 34.1 Red Cell Distribution Width 16.4 Platelet Count 106 Mean Platelet Volume 9.1 Neutrophils (%) (Auto) 90.8 Lymphocytes (%) (Auto) 2.9 Monocytes (%) (Auto) 6.1 Eosinophils (%) (Auto) 0.0 Basophils (%) (Auto) 0.2 Neutrophils # (Auto) 6.3 Lymphocytes # (Auto) 0.2 Monocytes # (Auto) 0.4 Eosinophils # (Auto) 0.0 Basophils # (Auto) 0.0 CBC Comment DIFF FINAL Differential Comment Blood Urea Nitrogen 11 Creatinine 0.37 Random Glucose 147 Total Protein 7.1 Albumin 2.5 Calcium Level 8.0 Alkaline Phosphatase 64 Aspartate Amino Transf (AST/SGOT) 28 Alanine Aminotransferase (ALT/SGPT) 43 Total Bilirubin 0.8 Sodium Level 125 Potassium Level 3.4 Chloride Level 86 Carbon Dioxide Level 28.7 Anion Gap 10 Estimat Glomerular Filtration Rate 176 Magnesium Level 1.7 Thyroid Stimulating Hormone 3rd Gen 0.781 Result Diagram: 01/26/18 1550 01/26/18 1550 Imaging Last Impressions Abdomen X-Ray 01/26/18 0000 Signed Impressions: CONCLUSION: No acute findings. No dilated loops of small or large bowel. Caprini VTE Risk Assessment Caprini VTE Risk Assessment: No/Low Risk (score <= 1) Caprini Risk Assessment Model Point Value = 1 Point Value = 2 Point Value = 3 Point Value = 5 Age 41-60 Minor surgery BMI > 25 kg/m2 Swollen legs Varicose veins or History of unexplained or recurrent spontaneous Oral contraceptives or hormone replacement Sepsis (< 1 month) Serious lung disease, including pneumonia (< 1 month) Abnormal pulmonary function Acute myocardial infarction Congestive heart failure (< 1 month) History of inflammatory bowel disease Medical patient at bed rest Age 61-74 Arthroscopic surgery Major open surgery (> 45 min) Laparoscopic surgery (> 45 min) Malignancy Confined to bed (> 72 hours) Immobilizing plaster cast Central venous access Age >= 75 History of VTE Family history of VTE Factor V Leiden Prothrombin [id number] Lupus anticoagulant Anticardiolipin antibodies Elevated serum homocysteine Heparin-induced thrombocytopenia Other congenital or acquired thrombophilia Stroke (< 1 month) Elective arthroplasty Hip, pelvis, or leg fracture Acute spinal cord injury (< 1 month) Prophylaxis Regimen Total Risk Factor Score Risk Level Prophylaxis Regimen 0-1 Low Early ambulation 2 Moderate Order ONE of the following: *Sequential Compression Device (SCD) *Heparin 5000 units SQ BID 3-4 Higher Order ONE of the following medications: *Heparin 5000 units SQ TID *Enoxaparin/Lovenox 40 mg SQ daily (WT < 150 kg, CrCl > 30 mL/min) *Enoxaparin/Lovenox 30 mg SQ daily (WT < 150 kg, CrCl > 10-29 mL/min) *Enoxaparin/Lovenox 30 mg SQ BID (WT < 150 kg, CrCl > 30 mL/min) AND/OR *Sequential Compression Device (SCD) 5 or more Highest Order ONE of the following medications: *Heparin 5000 units SQ TID (Preferred with Epidurals) *Enoxaparin/Lovenox 40 mg SQ daily (WT < 150 kg, CrCl > 30 mL/min) *Enoxaparin/Lovenox 30 mg SQ daily (WT < 150 kg, CrCl > 10-29 mL/min) *Enoxaparin/Lovenox 30 mg SQ BID (WT < 150 kg, CrCl > 30 mL/min) AND *Sequential Compression Device (SCD) Assessment and Plan Assessment and Plan 62-year-old female with a history of arthritis, lupus, diabetes, hypothyroidism , hypertension presents to the ED for evaluation of generalized weakness. Failure to thrive, patient with lethargy, nausea, vomiting and weight loss -IVF for hydration NS 20K @100ml -B12, vitamin D levels ordered, vitamin D low at 26.4, 1000 mg vitamin D ordered daily -Anti-emetics as needed -Consult dietary for possible calorie count due to poor p.o. intake -Consult PT, patient may benefit from rehab Abdominal pain, no BM for 3 days Patient with a history of a CT abdomen that shows a left renal mass likely a hemorrhagic cyst, ultrasound was suggested -Abdominal x-ray ordered to rule out ileus -Toradol IV as needed -UA pending sample -Kidney ultrasound ordered for follow-up patient has weight loss, and lower back pain Electrolyte imbalance NA125, K 3.4 -Supplementation ordered, trend labs, replace as needed -Continue IVF Lupus, chronic, patient was on a prednisone taper at home Cortisol level 28.2 -Hydrocortisone IV ordered, hold home prednisone -Protonix for GI prophylaxis Hypertension, chronic, currently uncontrolled suspect due to pain and vomiting -Resume home medications metoprolol and losartan, Vasotec IV as needed -Monitor vitals DVT prophylaxis: SCDs Discussed Condition With Patient and patient's family Candice Castillo January 26, 2018 20:22
[2018-01-26] MEDS: SODIUM CHLORIDE 0.9% FLUSH 10 ML FLUSH IV FLUSH SCH (21:00)
[2018-01-26] MEDS ORDERED: KETOROLAC TROMETHAMINE 30 MG/ML (IVP) VIAL IV PUSH ONE (21:00)
--- NOTE | 2018-01-26 21:13 | RADRPT ---
EXAM DATE: 01/26/2018 9:09 PM EDT AGE/SEX: 62 years / Female INDICATIONS: Ileus CLINICAL DATA: This is the patient's initial encounter. Patient reports that signs and symptoms have been present for 1 day and indicates a pain score of 10/10. MEDICAL/SURGICAL HISTORY: Hypertension. Lupus. Diabetes mellitus type II. Appendectomy. Hyst erectomy. COMPARISON: [facility] – [place], [place] ABDOMEN & PELVIS W/O CONTRAST, 01/11/2018. . FINDINGS: No dilated loops of small or large bowel. No evidence organomegaly. The osseous structures are gross ly intact with mild degenerative changes in the hips. There is a 1.9 cm flocculent calcification proj ected over the lower right iliac bone which correlates with a mesenteric calcification seen on prior CT 01/11/2018. CONCLUSION: No acute findings. No dilated loops of small or large bowel. Electronically signed by: Renny Zamora MD 01/26/2018 9:12 PM EDT
[2018-01-26] MEDS: ENALAPRILAT 1.25 MG/ML VIAL IV PUSH PRN (21:32)
[2018-01-26] MEDS: ONDANSETRON ODT 4 MG TAB PO PRN (21:32)
[2018-01-26] MEDS: METOPROLOL TARTRATE 25 MG TAB PO SCH (21:32)
[2018-01-26] MEDS: HYDROCORTISONE SOD SUCCINATE 100 MG VIAL IV PUSH SCH ×2 (22:00→23:12)
[2018-01-26 23:09] VITALS: BP 175/87; PULSE 71; RESP 17; TEMP 98.7; O2SAT 100
[2018-01-26] MEDS: NS + KCL 20 MEQ INJ 1,000 ML IV SCH (23:12)
[2018-01-27] MEDS: PANTOPRAZOLE SODIUM 40 MG VIAL IV PUSH SCH ×3 (01:27→22:16)
[2018-01-27 03:56] LABS: AMORPHOUS SEDIMENT, URINE RARE; BACTERIA, URINE RARE /hpf; BILIRUBIN, URINE NEG (NEG); BLOOD, URINE NEG (NEG); GLUCOSE,URINE NEG (NEG); KETONE, URINE 10 mg/dL (NEG); MUCUS URINE FEW /lpf (OCC); NITRITE,URINE NEG (NEG); PH, URINE 7.5 (5.0-8.5); SQUAMOUS EPITHELIAL CELL URINE <1 /hpf (0-5); URINE COLOR YELLOW (YELLW/STRAW); URINE LEUKOCYTE ESTERASE NEG (NEG)
[2018-01-27] MEDS: KETOROLAC TROMETHAMINE 30 MG/ML (IVP) VIAL IV PUSH PRN ×3 (03:59→19:16)
[2018-01-27 04:41] VITALS: BP 187/89; PULSE 64; RESP 16; TEMP 98.1; O2SAT 100
[2018-01-27] MEDS: ONDANSETRON ODT 4 MG TAB PO PRN (04:54)
[2018-01-27] MEDS: LEVOTHYROXINE SODIUM 50 MCG TAB PO SCH (04:54)
[2018-01-27] MEDS: ENALAPRILAT 1.25 MG/ML VIAL IV PUSH PRN (04:54)
[2018-01-27] MEDS: HYDROCORTISONE SOD SUCCINATE 100 MG VIAL IV PUSH SCH (05:30)
[2018-01-27] MEDS: NS + KCL 20 MEQ INJ 1,000 ML IV SCH ×2 (05:31→21:17)
[2018-01-27] MEDS: ASPIRIN 81 MG CHEW TAB CHEW SCH (08:14)
[2018-01-27] MEDS: SODIUM CHLORIDE 0.9% FLUSH 10 ML FLUSH IV FLUSH SCH ×2 (08:14→21:04)
[2018-01-27] MEDS: PRAVASTATIN SOD 20 MG TAB PO SCH (08:15)
[2018-01-27] MEDS: CHOLECALCIFEROL (VIT D3) 1000 UNIT TAB PO SCH (08:15)
[2018-01-27] MEDS: METOPROLOL TARTRATE 25 MG TAB PO SCH ×2 (08:15→21:04)
[2018-01-27] MEDS: LOSARTAN 50 MG TAB PO SCH (08:15)
[2018-01-27 08:18] VITALS: BP 192/88; PULSE 70; RESP 20; TEMP 98.6; O2SAT 98
[2018-01-27] MEDS: ACETAMINOPHEN 325 MG TAB PO PRN (08:18)
[2018-01-27] MEDS ORDERED: NYSTATIN SUSP 500,000 U/5 ML CUP SWISH-SWAL SCH (09:00)
--- NOTE | 2018-01-27 10:37 | RADRPT ---
EXAM DATE: 01/27/2018 9:55 AM EDT AGE/SEX: 62 years / Female INDICATIONS: Renal mass seen on CT. CLINICAL DATA: This is the patient's initial encounter. Patient reports that signs and symptoms have been present for 1 day and indicates a pain score of 0/10. MEDICAL/SURGICAL HISTORY: Anemia. Lupus. Hypertension. Diabetes. Appendectomy. Hysterecto my. Bladder sling. [place] [facility] [place]/O CONTRAST, [place]/11/2018. . MEASUREMENTS: Right Kidney:__8.6 x 4.4 x 1.4 cm cm Left Kidney:__11.0 x 5.1 x 5.2 cm cm FINDINGS: Right Kidney: Incompletely visualized due to overlying bowel gas. No focal mass, stone or hydronephro sis. Left Kidney: Abnormality noted on CT exam corresponds to an anechoic 1.5 x 1.5 x 1.5 cm lesion withou t vascularity, septations or nodule. No stone or hydronephrosis. Bladder: Within normal limits given the degree of distension. CONCLUSION: 1. Left renal abnormality noted on CT exam corresponds to a 1.5 x 1.5 x 1.5 cm simple appearing cyst by ultrasound criteria. Electronically signed by: Harrison Edmonds MD 01/27/2018 10:35 AM EDT
[2018-01-27 11:29] LABS: AUTOMATED NEUTROPHIL # 5.3 TH/MM3 (1.8-7.7); BASOPHIL % 0.2 % (0.0-2.0); HEMATOCRIT 42.1 % (35.0-46.0); HEMOGLOBIN 14.2 GM/DL (11.6-15.3); LYMPH % 3.7 % (9.0-44.0); LYMPHOCYTE # 0.2 TH/MM3 (1.0-4.8); MEAN CELL VOLUME 84.6 FL (80.0-100.0); MEAN CORPUSCULAR HEMOGLOBIN 28.6 PG (27.0-34.0); MEAN CORPUSCULAR HGB CONC 33.8 % (32.0-36.0); MEAN PLATELET VOLUME 9.1 FL (7.0-11.0); MONO % 6.8 % (0.0-8.0); MONOCYTE # 0.4 TH/MM3 (0-0.9); NEUT % 89.3 % (16.0-70.0); PLATELET COUNT 102 TH/MM3 (150-450); RED BLOOD COUNT 4.97 MIL/MM3 (4.00-5.30); RED CELL DISTRIBUTION WIDTH 16.7 % (11.6-17.2); WHITE BLOOD COUNT 5.9 TH/MM3 (4.0-11.0)
[2018-01-27 11:58] LABS: ALBUMIN 2.2 GM/DL (3.4-5.0); BICARBONATE 19.5 MEQ/L (21.0-32.0); CALCIUM 7.4 MG/DL (8.5-10.1); CREATININE 0.28 MG/DL (0.50-1.00); TOTAL BILIRUBIN ADULT 0.8 MG/DL (0.2-1.0); TOTAL PROTEIN 7.2 GM/DL (6.4-8.2)
[2018-01-27 12:05] LABS: CALCIUM-PROTEIN CORRECTED 7.4 MG/DL (8.5-10.1)
[2018-01-27 12:26] LABS: OVALOCYTES 2+ (NORMAL); TEARDROP RBCS 1+ (NORMAL)
[2018-01-27] MEDS ORDERED: POTASSIUM CHLORIDE 25 MEQ EFFERVESCENT TAB PO ONE (14:00)
[2018-01-27] MEDS: DOCUSATE SODIUM 50 MG/SENNA 8.6 MG TAB PO SCH ×2 (14:15→21:04)
--- NOTE | 2018-01-27 14:29 | HHI.PR ---
Subjective Remarks F/u hyponatremia. Improved nausea no vomiting. Also has upper back pain Objective Vitals Vital Signs Date Time Temp Pulse Resp B/P (MAP) Pulse Ox O2 Delivery O2 Flow Rate FiO2 01/27/18 12:42 18 01/27/18 10:09 20 01/27/18 08:18 98.6 70 20 192/88 (122) 98 01/27/18 04:41 98.1 64 16 187/89 (121) 100 01/27/18 03:21 18 01/26/18 23:09 98.7 71 17 175/87 (116) 100 01/26/18 20:02 98.7 71 16 193/94 (127) 99 01/26/18 18:00 64 18 166/90 (115) 99 Room Air 01/26/18 16:06 81 18 191/96 (127) 99 Room Air 01/26/18 16:06 18 01/26/18 16:02 18 01/26/18 14:46 97.3 70 24 185/101 (129) 99 I/O 01/26/18 01/26/18 01/26/18 01/27/18 01/27/18 01/27/18 07:00 15:00 23:00 07:00 15:00 23:00 Intake Total 1050 ml 100 ml Balance 1050 ml 100 ml Intake Oral 50 ml 100 ml IV Total 1000 ml Result Diagram: 01/27/18 1048 01/27/18 1048 Imaging Last Impressions Renal Ultrasound 01/27/18 0000 Signed Impressions: CONCLUSION: 1. Left renal abnormality noted on CT exam corresponds to a 1.5 x 1.5 x 1.5 cm simple appearing cyst by ultrasound criteria. Abdomen X-Ray 01/26/18 0000 Signed Impressions: CONCLUSION: No acute findings. No dilated loops of small or large bowel. Objective Remarks GENERAL: This is a well-nourished, well-developed patient, in no apparent distress SKIN: No rashes, ecchymoses or lesions. Cool and dry. CARDIOVASCULAR: Regular rate and rhythm without murmurs, gallops, or rubs. RESPIRATORY: Clear to auscultation. Breath sounds equal bilaterally. No wheezes , rales, or rhonchi. GASTROINTESTINAL: Abdomen soft, non-tender, nondistended. MUSCULOSKELETAL: Left upper back tenderness NEUROLOGICAL: Awake and alert. Motor and sensory grossly within normal limits. Normal speech. Procedures none A/P Problem List: (1) Hyponatremia ICD Code: E87.1 - Hypo-osmolality and hyponatremia Status: Acute (2) Nausea and vomiting ICD Code: R11.2 - Nausea with vomiting, unspecified Status: Acute Assessment and Plan 62-year-old female with a history of arthritis, lupus, diabetes, hypothyroidism , hypertension presents to the ED for evaluation of generalized weakness. Hyponatremia from vomiting likely from med. Ct NS infusion sz precaution Hypok. Replace 50 meq x 1. Check Mg Vit D def. Replace F/U calorie ct Abdominal pain, no BM for 3 days. KUB negative. Start bowel regimen. UA unremarkable. US with renal cyst Lupus, chronic. Not on chronic prednisone. Dc IV steroid Cortisol level 28.2 Hypertension, chronic, currently uncontrolled suspect due to pain and vomiting -Resume home medications metoprolol and losartan, Vasotec IV as needed -Monitor vitals Back pain. Obtain CTA eval aorta DVT prophylaxis: Chapito Varma MD January 27, 2018 14:29
[2018-01-27] MEDS ORDERED: IOHEXOL 350 MG/ML 10 ML VIAL (for RAD DIAG) IVCONTRAST ONE (14:55)
--- NOTE | 2018-01-27 16:18 | RADRPT ---
EXAM DATE: 01/27/2018 4:02 PM EDT AGE/SEX: 62 years / Female INDICATIONS: Aneurysm, back pain. CLINICAL DATA: This is the patient's initial encounter. Patient reports that signs and symptoms have been present for 2 weeks and indicates a pain score of 9/10. MEDICAL/SURGICAL HISTORY: Cardiovascular disease. Hypertension. Lupus. Diabetes. Appendectomy. Hysterectomy. RADIATION DOSE: 12.48 CTDI (mGy) COMPARISON: No prior [place] exams available for comparison. TECHNIQUE: Volumetric scanning was performed using a multi-row detector CT scanner during bolus infu faith of 90 ml Omnipaque 350 (iohexol) nonionic water-soluble contrast as a single exam dose. The da ta was post processed with a variety of visualization algorithms including full volume maximum intens ity projection, multi-planar sliding thin slab reformation, curved planar reformation, and surface re ndering techniques. Using automated exposure control and adjustment of the mA and/or kV according to patient size, radiation dose was kept as low as reasonably achievable to obtain optimal diagnostic q uality images. FINDINGS: Lungs: There is no consolidation or pneumothorax. No concerning pulmonary nodule is visualized. No pleural fluid is present. Mediastinum: No abnormally enlarged lymph nodes by CT criteria. No axillary or hilar abnormalities a re identified. Abdomen: The liver and spleen are free of focal defects. The gallbladder and pancreas demonstrate no abnormality. The adrenal glands are normal. The kidneys demonstrate no evidence of solid renal mass or hydronephrosis. No free fluid or abdominal masses are identified. No para-aortic adenopathy is see n. Pelvis: No evidence of free fluid or pelvic mass. No abnormally enlarged inguinal or retroperitoneal lymph nodes are present. The bladder is unremarkable. Thoracic Aorta: The thoracic aortic root is normal with normal branching of the great vessels. Ther e is no evidence of aneurysm or dissection. Abdominal Aorta: The aorta is normal in caliber without aneurysm or dissection. The renal arteries are patent bilaterally. The proximal celiac and superior mesenteric arteries are patent and normal i n diameter. Pelvic Vessels: The internal iliac and external iliac vessels are patent without aneurysm or stenosi s. CONCLUSION: 1. Negative CTA Thoraco Abdominal Aorta. 2. No evidence of aneurysm, intimal dissection or inflammatory vascular disease. Electronically signed by: Braden Murphy MD 01/27/2018 4:16 PM EDT
[2018-01-27] MEDS: CYCLOBENZAPRINE HCL 10 MG TAB PO PRN (17:02)
[2018-01-27 21:00] VITALS: BP 134/85; PULSE 75; RESP 16; TEMP 97.3; O2SAT 100
[2018-01-27] MEDS: NYSTATIN/TRIAMCINOLONE OINT 15 GM TUBE TOPICAL SCH (21:04)
[2018-01-27 21:19] LABS: BICARBONATE 21.8 MEQ/L (21.0-32.0); CALCIUM 7.3 MG/DL (8.5-10.1); CREATININE 0.43 MG/DL (0.50-1.00)
[2018-01-27 21:31] LABS: CALCIUM-PROTEIN CORRECTED 7.7 MG/DL (8.5-10.1); TOTAL PROTEIN 6.3 GM/DL (6.4-8.2)
[2018-01-27 23:34] VITALS: BP 161/79; PULSE 64; RESP 16; TEMP 97.9; O2SAT 100
[2018-01-28 00:30] VITALS: BP 186/99; PULSE 64; RESP 18; TEMP 97.5; O2SAT 100
[2018-01-28 01:13] VITALS: BP 167/75
[2018-01-28] MEDS: CYCLOBENZAPRINE HCL 10 MG TAB PO PRN ×2 (01:18→10:03)
[2018-01-28] MEDS: KETOROLAC TROMETHAMINE 30 MG/ML (IVP) VIAL IV PUSH PRN ×2 (01:18→10:05)
[2018-01-28] MEDS: ENALAPRILAT 1.25 MG/ML VIAL IV PUSH PRN ×2 (03:44→20:56)
[2018-01-28 04:00] VITALS: BP 179/94; PULSE 62; RESP 18; TEMP 97.4; O2SAT 100
[2018-01-28] MEDS: LEVOTHYROXINE SODIUM 50 MCG TAB PO SCH (06:10)
[2018-01-28 07:12] LABS: AUTOMATED NEUTROPHIL # 4.7 TH/MM3 (1.8-7.7); BASOPHIL % 0.1 % (0.0-2.0); EOSINOPHIL % 0.1 % (0.0-4.0); HEMATOCRIT 38.6 % (35.0-46.0); LYMPH % 5.5 % (9.0-44.0); LYMPHOCYTE # 0.3 TH/MM3 (1.0-4.8); MEAN CELL VOLUME 84.5 FL (80.0-100.0); MEAN CORPUSCULAR HEMOGLOBIN 28.5 PG (27.0-34.0); MEAN CORPUSCULAR HGB CONC 33.8 % (32.0-36.0); MEAN PLATELET VOLUME 9.1 FL (7.0-11.0); MONO % 7.8 % (0.0-8.0); MONOCYTE # 0.4 TH/MM3 (0-0.9); NEUT % 86.5 % (16.0-70.0); PLATELET COUNT 106 TH/MM3 (150-450); RED BLOOD COUNT 4.57 MIL/MM3 (4.00-5.30); RED CELL DISTRIBUTION WIDTH 16.8 % (11.6-17.2); WHITE BLOOD COUNT 5.4 TH/MM3 (4.0-11.0)
[2018-01-28 07:59] LABS: BICARBONATE 21.4 MEQ/L (21.0-32.0); CALCIUM 7.4 MG/DL (8.5-10.1); CREATININE 0.29 MG/DL (0.50-1.00); MAGNESIUM 1.7 MG/DL (1.5-2.5)
[2018-01-28 08:00] VITALS: BP 171/86; PULSE 67; RESP 18; TEMP 98; O2SAT 99
[2018-01-28 08:25] LABS: CALCIUM-PROTEIN CORRECTED 7.7 MG/DL (8.5-10.1); TOTAL PROTEIN 6.5 GM/DL (6.4-8.2)
[2018-01-28] MEDS: LOSARTAN 50 MG TAB PO SCH (10:03)
[2018-01-28] MEDS: METOPROLOL TARTRATE 25 MG TAB PO SCH (10:04)
[2018-01-28] MEDS: CHOLECALCIFEROL (VIT D3) 1000 UNIT TAB PO SCH (10:04)
[2018-01-28] MEDS: PRAVASTATIN SOD 20 MG TAB PO SCH (10:04)
[2018-01-28] MEDS: ASPIRIN 81 MG CHEW TAB CHEW SCH (10:04)
[2018-01-28] MEDS: DOCUSATE SODIUM 50 MG/SENNA 8.6 MG TAB PO SCH ×2 (10:04→20:56)
[2018-01-28] MEDS: PANTOPRAZOLE SODIUM 40 MG VIAL IV PUSH SCH ×2 (10:05→21:59)
[2018-01-28] MEDS: NYSTATIN/TRIAMCINOLONE OINT 15 GM TUBE TOPICAL SCH ×2 (10:12→20:56)
[2018-01-28] MEDS: SODIUM CHLORIDE 0.9% FLUSH 10 ML FLUSH IV FLUSH SCH ×2 (10:12→20:56)
[2018-01-28 11:31] VITALS: BP 128/94; PULSE 61; RESP 16; TEMP 97.2; O2SAT 100
--- NOTE | 2018-01-28 13:10 | RADRPT ---
EXAM DATE: 01/28/2018 1:01 PM EDT AGE/SEX: 62 years / Female INDICATIONS: Left side weakness. CLINICAL DATA: This is the patient's initial encounter. Patient reports that signs and symptoms have been present for 1 day and indicates a pain score of 9/10. MEDICAL/SURGICAL HISTORY: Lupus. Rheumatoid arthritis. Cardiovascular disease. Hypertension, rubina betes. Appendectomy. Hysterectomy. RADIATION DOSE: 33.82 CTDI (mGy) ; Patient positioning COMPARISON: CT of the brain January 24, 2018. TECHNIQUE: CT of the head without contrast. Using automated exposure control and adjustment of the mA and/or kV according to patient size, radiation dose was kept as low as reasonably achievable to ob tain optimal diagnostic quality images. FINDINGS: Cerebrum: The ventricles are normal for age. No evidence of midline shift, mass lesion, hemorrhage or acute infarction. No extraaxial fluid collections are seen. Posterior Fossa: The cerebellum and brainstem are intact. The 4th ventricle is midline. The cerebe llopontine angle is unremarkable. Extracranial: The visualized portion of the orbits is intact. Skull: The calvaria is intact. No evidence of skull fracture. CONCLUSION: 1. Negative CT Head non contrast. Electronically signed by: Renny Ornelas MD 01/28/2018 1:08 PM EDT
[2018-01-28] MEDS: NS + KCL 20 MEQ INJ 1,000 ML IV SCH (15:59)
--- NOTE | 2018-01-28 17:50 | HHI.PR ---
Subjective Remarks 62-year-old female admitted for nausea vomiting and electrolyte imbalance complains today of left hand and left lower extremity weakness. These symptoms have appeared since yesterday. She denies any slurring of her voice and family denies any facial asymmetry that has not already her baseline. She denies any history of previous stroke. Objective Vitals Vital Signs Date Time Temp Pulse Resp B/P (MAP) Pulse Ox O2 Delivery O2 Flow Rate FiO2 01/28/18 11:31 97.2 61 16 128/94 (105) 100 01/28/18 08:00 98.0 67 18 171/86 (114) 99 01/28/18 04:00 97.4 62 18 179/94 (122) 100 01/28/18 01:13 167/75 (105) 01/28/18 00:30 97.5 64 18 186/99 (128) 100 01/27/18 23:34 97.9 64 16 161/79 (106) 100 01/27/18 21:00 97.3 75 16 134/85 (101) 100 01/27/18 20:20 16 I/O 01/27/18 01/27/18 01/27/18 01/28/18 01/28/18 01/28/18 07:00 15:00 23:00 07:00 15:00 23:00 Intake Total 100 ml 240 ml Balance 100 ml 240 ml Intake Oral 100 ml 240 ml # Voids 2 Result Diagram: 01/28/18 0637 01/28/18 0637 Objective Remarks GENERAL: Well-nourished, well-developed patient. SKIN: Warm and dry. HEAD: Normocephalic. EYES: No scleral icterus. No injection or drainage. NECK: Supple, trachea midline. No JVD or lymphadenopathy. CARDIOVASCULAR: Regular rate and rhythm without murmurs, gallops, or rubs. RESPIRATORY: Breath sounds equal bilaterally. No accessory muscle use. GASTROINTESTINAL: Abdomen soft, non-tender, nondistended. EXTREMITIES: No cyanosis, or edema. NEUROLOGICAL: Awake, alert, and oriented x 3. Left hand and leg are 3 out of 5 strength, compared to 5 out of 5 on right Procedures none A/P Problem List: (1) Hyponatremia ICD Code: E87.1 - Hypo-osmolality and hyponatremia Status: Acute (2) Nausea and vomiting ICD Code: R11.2 - Nausea with vomiting, unspecified Status: Acute Assessment and Plan 62-year-old female with a history of arthritis, lupus, diabetes, hypothyroidism , hypertension presents to the ED for evaluation of generalized weakness. Left upper and lower extremity weakness Suspicious for stroke, STAT CT brain is negative MRI of brain is pending We will focus also on correcting hyponatremia and hypocalcemia Blood pressure meds held for now We will consult neurology if stroke is present on MRI Will get MRI of C-spine if MRI of brain is negative Hyponatremia Likely from vomiting and dehydration Continue IV fluid replacement Hypocalcemia Possibly related to muscle discoordination, however asymmetrical presentation is more suspicious for stroke Calcium gluconate 1 g IV, recheck calcium in a.m. h/o Lupus Consider flareup if symptoms remain unexplainable by other causes Patient voices no joint pain complaints, she takes no steroids for this Hypertension Home meds held until stroke ruled out Chronic low back pain Patient requested K pad DVT prophylaxis Eladio Downey MD January 28, 2018 17:50
--- NOTE | 2018-01-28 19:14 | RADRPT ---
EXAM DATE: 01/28/2018 7:04 PM EDT AGE/SEX: 62 years / Female INDICATIONS: Left sided weakness. CLINICAL DATA: This is the patient's initial encounter. Patient reports that signs and symptoms have been present for 2 days and indicates a pain score of 0/10. MEDICAL/SURGICAL HISTORY: Hypertension. . Bladder sling. COMPARISON: [facility] – [place], [place] BRAIN W/O CONTRAST, 01/28/2018. . TECHNIQUE: Multiplanar, multisequence examination of the brain was performed without contrast. FINDINGS: Cerebrum: Mild T2 hyperintensity is identified in several sulci in the occipital regions. Small hypo intense collections are identified in the occipital horns of the lateral ventricles. Cerebral cortex is otherwise unremarkable. There is no evidence of restricted diffusion, parenchymal hemorrhage, mass effect or edema. White Matter: Small punctate hyperintensities are scattered throughout the cerebral white matter pre dominantly in the subcortical white matter tracts. Posterior Fossa: Minimal hyperintensity is seen along the cerebellar folia of the vermis. Diffusion Imaging: No focal areas of restricted diffusion are seen. No evidence of acute infarction . Extracranial: The visualized portions of the orbits and paranasal sinuses are unremarkable. CONCLUSION: 1. FLAIR T2 hyperintensity along the cortical surface of the occipital lobes characteristic of minim al subarachnoid blood. 2. Trace blood in the ventricles. 3. No evidence of acute infarct, parenchymal hemorrhage, mass or edema. 4. Cerebral white matter disease characteristic of mild microvascular angiopathy. Electronically signed by: Braden Murphy MD 01/28/2018 7:13 PM EDT
[2018-01-28 20:00] VITALS: BP 173/103; PULSE 86; RESP 18; TEMP 97.7; O2SAT 99
[2018-01-28] MEDS ORDERED: CALCIUM GLUCONATE INJ 1 GM in SODIUM CHLORIDE 0.9% INJ 90 ML IV ONE (20:00)
[2018-01-28] MEDS: ACETAMINOPHEN 325 MG TAB PO PRN (21:00)
--- NOTE | 2018-01-28 23:09 | PD.CONS ---
History of Present Illness Service Neurosurgery Consult Requested By Medicine service Reason for Consult Subarachnoid hemorrhage Primary Care Physician Non-Staff Diagnoses: History of Present Illness The patient is a 62-year-old female he was just discharged from the hospital on 01/27/2018 following admission for chest pain, with subsequent cardiology clearance. The patient states that since approximately July 2017 she has experienced generalized fatigue and malaise along with weight loss. She states that in August 2017 her doctor thought she may have had a small stroke due to facial droop. She states that after being discharged from the hospital yesterday she has significant nausea and vomiting. She also developed headache along with left upper and lower extremity weakness. She states that her systolic blood pressure was up to 240 on this past Tuesday. Her vital signs noted in the medical records indicate that she was in the 180s-190s systolic range for much of the day on 12/21 through 01/27/18 as well as blood pressure documented is 186/99 earlier today. She denies any significant problems with vertigo. No definite confusion. Review of Systems Constitutional: COMPLAINS OF: Fatigue, DENIES: Fever Eyes: DENIES: Blurred vision, Diplopia Ears, nose, mouth, throat: DENIES: Hearing loss, Vertigo Respiratory: COMPLAINS OF: Shortness of breath Cardiovascular: DENIES: Chest pain Gastrointestinal: COMPLAINS OF: Nausea, Vomiting, DENIES: Diarrhea Musculoskeletal: COMPLAINS OF: Joint pain, Muscle aches, Back pain, Neck pain Hematologic/lymphatic: DENIES: Bruising Neurologic: COMPLAINS OF: Abnormal gait, Headache, Localized weakness, Paresthesias, Poor Balance Psychiatric: DENIES: Confusion Past Family Social History Allergies: Coded Allergies: codeine (Verified Allergy, Intermediate, 01/24/18) nitroglycerin (Verified Adverse Reaction, Severe, Nausea/Vomiting, 01/25/18 ) Past Medical History Lupus Hypertension Hyperlipidemia Diabetes Hypothyroidism Anemia Past Surgical History Appendectomy Hysterectomy Bladder surgery Reported Medications Reported Meds & Active Scripts Active Cozaar (Losartan Potassium) 50 Mg Tab 100 Mg PO DAILY Prednisone 10 Mg Tab 10 Mg PO DAILY Use this only IF Bolus and Taper of prednisone fails. Prednisone 20 Mg Tab 20 Mg PO BID Use this treatment first, then use taper treatment. Prednisone 10 Mg Tab 10 Mg PO DIRECTED Taper Treatment: 1 pill twice a day for Day 1-2 1 pill once a day for Day 3-4 1/2 pill once a day for Day 5-8 Then stop Nystatin-Triamcinolone 100,000-0.1 Unit/Gm Oint 1 Applic TOPICAL Q12HR Tramadol (Tramadol HCl) 50 Mg Tab 50 Mg PO Q8H PRN Reported Levothyroxine (Levothyroxine Sodium) 50 Mcg Tab 50 Mcg PO DAILY Metformin (Metformin HCl) 500 Mg Tab 500 Mg PO BIDPC Aspirin Low Dose (Aspirin) 81 Mg Chew 81 Mg CHEW DAILY Lovastatin 20 Mg Tab 20 Mg PO DAILY Metoprolol Tartrate 25 Mg Tab 25 Mg PO BID Losartan (Losartan Potassium) 50 Mg Tab 50 Mg PO DAILY Family History No history of lupus in the family. Coronary artery disease in her mother and father Social History Does not smoke cigarettes or drink alcohol Physical Exam Vital Signs Vital Signs Date Time Temp Pulse Resp B/P (MAP) Pulse Ox O2 Delivery O2 Flow Rate FiO2 01/28/18 20:00 97.7 86 18 173/103 (126) 99 01/28/18 11:31 97.2 61 16 128/94 (105) 100 01/28/18 08:00 98.0 67 18 171/86 (114) 99 01/28/18 04:00 97.4 62 18 179/94 (122) 100 01/28/18 01:13 167/75 (105) 01/28/18 00:30 97.5 64 18 186/99 (128) 100 01/27/18 23:34 97.9 64 16 161/79 (106) 100 Physical Exam GENERAL: Very frail cachectic appearing lady SKIN: Dry, poor skin turgor and integrity. HEAD: Atraumatic. Normocephalic. No temporal or scalp tenderness. EYES: Moderate scleral and conjunctival edema and ecchymosis left eye and to minimal extent right eye ENT: No CSF otorrhea or rhinorrhea. Oropharynx clear NECK: Mild neck tenderness. Approximately 45 right and left rotation CARDIOVASCULAR: Pulse regular RESPIRATORY: Respirations clear nonlabored GASTROINTESTINAL: Abdomen soft, non-tender, nondistended. MUSCULOSKELETAL: Significant muscle wasting all extremities. Moderate arthritic changes in the hands NEUROLOGICAL: Awake and relatively alert Moderate slowing of speech and thought processes Speech is very soft Answers most simple questions appropriately and follows simple commands relatively well. Her speech is very slow, somewhat difficult to understand, partly because of very soft voice. Pupils are midrange reactive to accommodation. Extraocular movements visual atkinson confrontation facial sensorimotor tongue, sternocleidomastoid testing hearing to finger rub bilateral shoulder shrug are all intact Sensation is intact to light touch in the upper and lower extremities Strength is diminished to 2/5 left triceps and hand intrinsics with 3/5 proximal left lower extremity motor function. Left tibialis anterior is absent with 2/5 left gastrocsoleus. Strength within normal limits right lower extremity major flexion-extension groups Kerr's response absent bilateral No ankle clonus Plantar responses are neutral Laboratory Laboratory Tests Test 01/28/18 06:37 White Blood Count 5.4 Red Blood Count 4.57 Hemoglobin 13.0 Hematocrit 38.6 Mean Corpuscular Volume 84.5 Mean Corpuscular Hemoglobin 28.5 Mean Corpuscular Hemoglobin Concent 33.8 Red Cell Distribution Width 16.8 Platelet Count 106 Mean Platelet Volume 9.1 Neutrophils (%) (Auto) 86.5 Lymphocytes (%) (Auto) 5.5 Monocytes (%) (Auto) 7.8 Eosinophils (%) (Auto) 0.1 Basophils (%) (Auto) 0.1 Neutrophils # (Auto) 4.7 Lymphocytes # (Auto) 0.3 Monocytes # (Auto) 0.4 Eosinophils # (Auto) 0.0 Basophils # (Auto) 0.0 CBC Comment DIFF FINAL Differential Comment Blood Urea Nitrogen 9 Creatinine 0.29 Random Glucose 101 Total Protein 6.5 Calcium Level 7.4 Magnesium Level 1.7 Sodium Level 129 Potassium Level 3.6 Chloride Level 98 Carbon Dioxide Level 21.4 Anion Gap 10 Estimat Glomerular Filtration Rate 234 Protein Corrected Calcium 7.7 Result Diagram: 01/28/18 0637 01/28/18 0637 Imaging Last Impressions Head CT 01/28/18 0000 Signed Impressions: CONCLUSION: 1. Negative CT Head non contrast. Brain MRI 01/28/18 0000 Signed Impressions: CONCLUSION: 1. FLAIR T2 hyperintensity along the cortical surface of the occipital lobes c haracteristic of minimal subarachnoid blood. 2. Trace blood in the ventricles. 3. No evidence of acute infarct, parenchymal hemorrhage, mass or edema. 4. 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 Renal Ultrasound 01/27/18 0000 Signed Impressions: CONCLUSION: 1. Left renal abnormality noted on CT exam corresponds to a 1.5 x 1.5 x 1.5 cm simple appearing cyst by ultrasound criteria. Aorta CTA 01/27/18 0000 Signed Impressions: CONCLUSION: 1. Negative CTA Thoraco Abdominal Aorta. 2. No evidence of aneurysm, intimal dissection or inflammatory vascular diseas e. Abdomen X-Ray 01/26/18 0000 Signed Impressions: CONCLUSION: No acute findings. No dilated loops of small or large bowel. Assessment and Plan Assessment and Plan Impression: 1. Mild subarachnoid hemorrhage-intraventricular hemorrhage noted on MRI. Likely sequela of hypertension, possible contribution of diabetes to underlying microvascular disease. Cannot totally rule out amyloid angiopathy. 2. History of lupus 3. Diabetes Plan: Findings were discussed at length with the patient. CT angiogram of the head is recommended to more clearly delineate any significant vascular changes including signs of vasculitis Also MRI cervical spine to assess for possible cord compression-myelopathy. Continue physical therapy, mobilize out of bed as tolerated DVT prophylaxis Henry Newberry MD January 28, 2018 23:09
[2018-01-29] VITALS (7 sets, daily range): BP systolic 135–195; BP diastolic 65–99; PULSE 90–102; RESP 16–18; TEMP 97.9–99.4; O2SAT 96–100
[2018-01-29] MEDS: KETOROLAC TROMETHAMINE 30 MG/ML (IVP) VIAL IV PUSH PRN ×2 (00:41→09:34)
[2018-01-29] MEDS: LEVOTHYROXINE SODIUM 50 MCG TAB PO SCH (05:14)
[2018-01-29 06:17] LABS: BICARBONATE 22.4 MEQ/L (21.0-32.0); CALCIUM 7.5 MG/DL (8.5-10.1); CREATININE 0.47 MG/DL (0.50-1.00); MAGNESIUM 1.6 MG/DL (1.5-2.5)
[2018-01-29 06:20] LABS: CALCIUM-PROTEIN CORRECTED 8.1 MG/DL (8.5-10.1)
[2018-01-29] MEDS: NYSTATIN/TRIAMCINOLONE OINT 15 GM TUBE TOPICAL SCH ×2 (09:00→21:30)
[2018-01-29] MEDS: LOSARTAN 50 MG TAB PO SCH (09:00)
[2018-01-29] MEDS: SODIUM CHLORIDE 0.9% FLUSH 10 ML FLUSH IV FLUSH SCH ×2 (09:00→21:30)
[2018-01-29] MEDS: PRAVASTATIN SOD 20 MG TAB PO SCH (09:33)
[2018-01-29] MEDS: CHOLECALCIFEROL (VIT D3) 1000 UNIT TAB PO SCH (09:33)
[2018-01-29] MEDS: DOCUSATE SODIUM 50 MG/SENNA 8.6 MG TAB PO SCH ×2 (09:33→21:21)
[2018-01-29] MEDS: PANTOPRAZOLE SODIUM 40 MG VIAL IV PUSH SCH ×2 (10:00→21:20)
[2018-01-29] MEDS ORDERED: CALCIUM GLUCONATE INJ 1 GM in SODIUM CHLORIDE 0.9% INJ 90 ML IV ONE (13:30)
[2018-01-29] MEDS ORDERED: GADODIAMIDE PF 287 MG/ML 10 ML VIAL (for RAD MRI) IVCONTRAST ONE ×2 (14:21→19:25)
--- NOTE | 2018-01-29 16:06 | HHI.PR ---
Subjective Remarks Patient continues to have left-sided weakness. CT of the brain and MRI were both negative yesterday. Patient herself is suspicious of a disc herniation in her cervical spine since that is where she feels pain the most. Objective Vitals Vital Signs Date Time Temp Pulse Resp B/P (MAP) Pulse Ox O2 Delivery O2 Flow Rate FiO2 01/29/18 12:00 97.9 92 16 135/65 (88) 100 01/29/18 08:00 98.5 97 16 156/79 (104) 96 01/29/18 04:00 99.0 102 18 139/79 (99) 99 01/29/18 00:00 98.7 90 16 182/92 (122) 99 01/28/18 20:00 97.7 86 18 173/103 (126) 99 I/O 01/28/18 01/28/18 01/28/18 01/29/18 01/29/18 01/29/18 06:59 14:59 22:59 06:59 14:59 22:59 Intake Total 240 ml 240 ml Balance 240 ml 240 ml Intake Oral 240 ml 240 ml # Voids 2 4 3 # Bowel Movements 1 Result Diagram: 01/28/18 0637 01/29/18 0526 Objective Remarks GENERAL: Well-nourished, well-developed patient. SKIN: Warm and dry. HEAD: Normocephalic. EYES: No scleral icterus. No injection or drainage. NECK: Supple, trachea midline. No JVD or lymphadenopathy. CARDIOVASCULAR: Regular rate and rhythm without murmurs, gallops, or rubs. RESPIRATORY: Breath sounds equal bilaterally. No accessory muscle use. GASTROINTESTINAL: Abdomen soft, non-tender, nondistended. EXTREMITIES: No cyanosis, or edema. NEUROLOGICAL: Awake, alert, and oriented x 3. Left hand and leg are 3 out of 5 strength, compared to 5 out of 5 on right Procedures none A/P Problem List: (1) Hyponatremia ICD Code: E87.1 - Hypo-osmolality and hyponatremia Status: Acute (2) Nausea and vomiting ICD Code: R11.2 - Nausea with vomiting, unspecified Status: Acute Assessment and Plan 62-year-old female with a history of arthritis, lupus, diabetes, hypothyroidism , hypertension presents to the ED for evaluation of generalized weakness. Left upper and lower extremity weakness Both MRI and CT brain were negative for stroke MRI of brain showed unexplained areas of tiny hemorrhage and subarachnoid and ventricular spaces Blood pressure medications resumed MRI of C-spine is pending Appreciate neurosurgery consult Neurology consulted to assist with evaluation of weakness Hypocalcemia Improved but not resolved Repeat calcium gluconate 1 g IV Follow-up ionized calcium level with a.m. labs Hyponatremia Nearly resolved h/o Lupus If cervical spine MRI is within normal limits strongly consider lupus flareup affecting brain ESR and CRP ordered Hypertension Blood pressure medications resumed DVT prophylaxis Eladio Downey MD January 29, 2018 16:06
--- NOTE | 2018-01-29 16:35 | HHI.NSPN ---
History Chief Complaint: Pain to the back of the head and neck. Interval History 01/28: The patient is a 62-year-old female he was just discharged from the hospital on 01/27/2018 following admission for chest pain, with subsequent cardiology clearance. The patient states that since approximately July 2017 she has experienced generalized fatigue and malaise along with weight loss. She states that in August 2017 her doctor thought she may have had a small stroke due to facial droop. She states that after being discharged from the hospital yesterday she has significant nausea and vomiting. She also developed headache along with left upper and lower extremity weakness. She states that her systolic blood pressure was up to 240 on this past Tuesday. Her vital signs noted in the medical records indicate that she was in the 180s-190s systolic range for much of the day on 520 12/21 through 01/27/18 as well as blood pressure documented is 186/99 earlier today. She denies any significant problems with vertigo. No definite confusion. 01/29: The patient is awake in bed visiting with family. She complains of pain to the back of the head and to the neck. She denies any nausea or dizziness. She also denies any pain, numbness or tingling to the extremities but she does say she has weakness. Her daughter did say that the patient did report some numbness to the lower extremities. Upon evaluation the patient does have tenderness to the inferior occipital scalp and along the midline cervical spine. She had no sensory deficits to the extremities but had left lower extremity weakness as well as some to the left upper extremity. The hand intrinsics and extrinsics were weak bilaterally and more so on the left. She had a slight facial droop. Exam Results 01/27/18 01/27/18 01/28/18 01/28/18 01/29/18 01/29/18 06:00 18:00 06:00 18:00 06:00 18:00 Intake Total 50 ml 100 ml 240 ml 240 ml Balance 50 ml 100 ml 240 ml 240 ml Intake Oral 50 ml 100 ml 240 ml 240 ml # Voids 2 4 3 # Bowel Movements 1 Vital Signs Date Time Temp Pulse Resp B/P (MAP) Pulse Ox O2 Delivery O2 Flow Rate FiO2 01/29/18 12:00 97.9 92 16 135/65 (88) 100 01/29/18 08:00 98.5 97 16 156/79 (104) 96 01/29/18 04:00 99.0 102 18 139/79 (99) 99 01/29/18 00:00 98.7 90 16 182/92 (122) 99 01/28/18 20:00 97.7 86 18 173/103 (126) 99 01/28/18 11:31 97.2 61 16 128/94 (105) 100 01/28/18 08:00 98.0 67 18 171/86 (114) 99 01/28/18 04:00 97.4 62 18 179/94 (122) 100 01/28/18 01:13 167/75 (105) 01/28/18 00:30 97.5 64 18 186/99 (128) 100 01/27/18 23:34 97.9 64 16 161/79 (106) 100 01/27/18 21:00 97.3 75 16 134/85 (101) 100 01/27/18 20:20 16 01/27/18 10:09 20 01/27/18 08:18 98.6 70 20 192/88 (122) 98 01/27/18 04:41 98.1 64 16 187/89 (121) 100 01/27/18 03:21 18 01/26/18 23:09 98.7 71 17 175/87 (116) 100 01/26/18 20:02 98.7 71 16 193/94 (127) 99 01/26/18 18:00 64 18 166/90 (115) 99 Room Air Physical Examination GENERAL: Awake & alert in bed visiting w/family. Affect flat but readily interacts. No apparent distress. HEENT: Normocephalic, atraumatic. TTP to inferior occipital scalp. PERRLA 2 mm, EOMI, left sclera injected, partial left ptosis. Mild left-sided facial droop. MMM & pink, tongue midline to protrusion. NECK: Midline cervical spine mildly TTP. No JVD. Trachea midline. MUSCULOSKELETAL: PLASENCIA spontaneously & purposefully. Severe muscle atrophy to all extremities. NEUROLOGICAL: AAOx3. Speech soft but clear, slow but appropriate. Follows simple commands w/o difficulty. PERRLA 2 mm, EOMI, partial left ptosis. Left-sided facial weakness (decrease eyebrow shrug, smile & puffing out cheeks). Tongue midline to protrusion. Sensation is intact to light touch to all extremities. Motor strength: LUE: Deltoid 4/5, biceps 3+ to 4/5, triceps 3/5, wrist flexors 4 to 4+/5, wrist extensors 2+ to 3/5, hand intrinsics & extrinsics 1/5. RUE: Deltoid 4+/5, biceps 4+ to 5/5, triceps 4+/5, wrist flexors & extensors 4+ to 5/5, hand intrinsics & extrinsics 3/5. LLE: Iliopsoas 3 to 3+/5, quadriceps 1/5, hamstring 3/5, tibialis anterior 0/ 5, gastrocsoleus 2/5, extensor hallucis longus 0/5. RLE: Iliopsoas 4+/5, quadriceps 5/5, hamstring 4+/5, tibialis anterior 4 to 4 +/5, gastrocsoleus 4+/5, extensor hallucis longus 4+/5. Lab, Micro, Other Results Recent Impressions Head CT 01/28/18 Signed Impressions: CONCLUSION: 1. Negative CT Head non contrast. Brain MRI 01/28/18 Signed Impressions: CONCLUSION: 1. FLAIR T2 hyperintensity along the cortical surface of the occipital lobes c haracteristic of minimal subarachnoid blood. 2. Trace blood in the ventricles. 3. No evidence of acute infarct, parenchymal hemorrhage, mass or edema. 4. 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 Renal Ultrasound 01/27/18 Signed Impressions: CONCLUSION: 1. Left renal abnormality noted on CT exam corresponds to a 1.5 x 1.5 x 1.5 cm simple appearing cyst by ultrasound criteria. Aorta CTA 01/27/18 Signed Impressions: CONCLUSION: 1. Negative CTA Thoraco Abdominal Aorta. 2. No evidence of aneurysm, intimal dissection or inflammatory vascular diseas e. Laboratory Tests Test 01/26/18 18:18 01/26/18 23:55 01/27/18 10:48 01/27/18 13:42 Random Cortisol 28.2 MCG/DL 53.4 MCG/DL Urine Color YELLOW Urine Turbidity CLEAR Urine pH 7.5 Urine Specific Yoder 1.010 Urine Protein TRACE mg/dL Urine Glucose (UA) NEG mg/dL Urine Ketones 10 mg/dL Urine Occult Blood NEG Urine Nitrite NEG Urine Bilirubin NEG Urine Urobilinogen LESS THAN 2.0 MG/DL Urine Leukocyte Esterase NEG Urine RBC 7 /hpf Urine WBC 2 /hpf Urine Squamous Epithelial Cells <1 /hpf Urine Amorphous Sediment RARE Urine Bacteria RARE /hpf Urine Mucus FEW /lpf Microscopic Urinalysis Comment CULT NOT INDICATED Urine Opiates Screen NEG Urine Barbiturates Screen NEG Urine Amphetamines Screen NEG Urine Benzodiazepines Screen NEG Urine Cocaine Screen NEG Urine Cannabinoids Screen NEG White Blood Count 5.9 TH/MM3 Red Blood Count 4.97 MIL/MM3 Hemoglobin 14.2 GM/DL Hematocrit 42.1 % Mean Corpuscular Volume 84.6 FL Mean Corpuscular Hemoglobin 28.6 PG Mean Corpuscular Hemoglobin Concent 33.8 % Red Cell Distribution Width 16.7 % Platelet Count 102 TH/MM3 Mean Platelet Volume 9.1 FL Neutrophils (%) (Auto) 89.3 % Lymphocytes (%) (Auto) 3.7 % Monocytes (%) (Auto) 6.8 % Eosinophils (%) (Auto) 0.0 % Basophils (%) (Auto) 0.2 % Neutrophils # (Auto) 5.3 TH/MM3 Lymphocytes # (Auto) 0.2 TH/MM3 Monocytes # (Auto) 0.4 TH/MM3 Eosinophils # (Auto) 0.0 TH/MM3 Basophils # (Auto) 0.0 TH/MM3 CBC Comment AUTO DIFF Differential Comment AUTO DIFF CONFIRMED Platelet Estimate LOW Platelet Morphology Comment NORMAL Tear Drop Cells 1+ Ovalocytes 2+ Blood Urea Nitrogen 6 MG/DL Creatinine 0.28 MG/DL Random Glucose 116 MG/DL Total Protein 7.2 GM/DL Albumin 2.2 GM/DL Calcium Level 7.4 MG/DL Alkaline Phosphatase 64 U/L Aspartate Amino Transf (AST/SGOT) 29 U/L Alanine Aminotransferase (ALT/SGPT) 40 U/L Total Bilirubin 0.8 MG/DL Sodium Level 123 MEQ/L Potassium Level 3.1 MEQ/L Chloride Level 90 MEQ/L Carbon Dioxide Level 19.5 MEQ/L Anion Gap 14 MEQ/L Estimat Glomerular Filtration Rate 243 ML/MIN Protein Corrected Calcium 7.4 MG/DL Magnesium Level 1.6 MG/DL Erythrocyte Sedimentation Rate 12 mm/hr Test 01/27/18 20:00 01/28/18 06:37 01/29/18 05:26 Blood Urea Nitrogen 11 MG/DL 9 MG/DL 14 MG/DL Creatinine 0.43 MG/DL 0.29 MG/DL 0.47 MG/DL Random Glucose 139 MG/DL 101 MG/DL 101 MG/DL Total Protein 6.3 GM/DL 6.5 GM/DL 6.0 GM/DL Calcium Level 7.3 MG/DL 7.4 MG/DL 7.5 MG/DL Sodium Level 126 MEQ/L 129 MEQ/L 133 MEQ/L Potassium Level 3.8 MEQ/L 3.6 MEQ/L 3.8 MEQ/L Chloride Level 95 MEQ/L 98 MEQ/L 102 MEQ/L Carbon Dioxide Level 21.8 MEQ/L 21.4 MEQ/L 22.4 MEQ/L Anion Gap 9 MEQ/L 10 MEQ/L 9 MEQ/L Estimat Glomerular Filtration Rate 148 ML/MIN 234 ML/MIN 134 ML/MIN Protein Corrected Calcium 7.7 MG/DL 7.7 MG/DL 8.1 MG/DL White Blood Count 5.4 TH/MM3 Red Blood Count 4.57 MIL/MM3 Hemoglobin 13.0 GM/DL Hematocrit 38.6 % Mean Corpuscular Volume 84.5 FL Mean Corpuscular Hemoglobin 28.5 PG Mean Corpuscular Hemoglobin Concent 33.8 % Red Cell Distribution Width 16.8 % Platelet Count 106 TH/MM3 Mean Platelet Volume 9.1 FL Neutrophils (%) (Auto) 86.5 % Lymphocytes (%) (Auto) 5.5 % Monocytes (%) (Auto) 7.8 % Eosinophils (%) (Auto) 0.1 % Basophils (%) (Auto) 0.1 % Neutrophils # (Auto) 4.7 TH/MM3 Lymphocytes # (Auto) 0.3 TH/MM3 Monocytes # (Auto) 0.4 TH/MM3 Eosinophils # (Auto) 0.0 TH/MM3 Basophils # (Auto) 0.0 TH/MM3 CBC Comment DIFF FINAL Differential Comment Magnesium Level 1.7 MG/DL 1.6 MG/DL Medical Decision Making Impression and Plan Impression: 1. Mild subarachnoid hemorrhage-intraventricular hemorrhage noted on MRI. Likely sequela of hypertension, possible contribution of diabetes to underlying microvascular disease. Cannot totally rule out amyloid angiopathy. 2. History of lupus 3. Diabetes Patient is stable in her examination. Past 24 hrs: Afebrile. Intermittent hypertension. Reviewed labs for today. Sodium 133. MRI brain demonstrated minimal subarachnoid blood along the cortical surface of the occipital lobes w/trace blood in the ventricles. No acute infarct , parenchymal haemorrhage, mass or edema. Cerebral white matter disease. Plan: Primary management per Hospitalist. Neuro checks. Stat CT brain for any decline in neuro status. Mobilise patient w/assistance. Physical Therapy eval & tx. Hold pharmacologic DVT prophylaxis. Mechanical DVT prophylaxis. Recommend CT angiogram of the head to more clearly delineate any significant vascular changes including signs of vasculitis. Recommend MRI cervical spine to assess for possible cord compression-myelopathy. Dillan Mosqueda. [facility] January 29, 2018 16:35
--- NOTE | 2018-01-29 16:46 | RADRPT ---
EXAM DATE: 01/29/2018 3:37 PM EDT AGE/SEX: 62 years / Female INDICATIONS: . Severe neck pain. CLINICAL DATA: This is the patient's initial encounter. Patient reports that signs and symptoms have been present for 2 days and indicates a pain score of 3/10. MEDICAL/SURGICAL HISTORY: Hypertension. . Bladder sling. COMPARISON: [facility] [place], MRI BRAIN W/O CONTRAST, 01/28/2018. . TECHNIQUE: Multiplanar, multisequence MRI examination of the cervical spine was performed without an d with 10cc ml Omniscan (gadodiamide) contrast as a single exam dose. FINDINGS: ALIGNMENT: Vertebral bodies are satisfactorily aligned without evidence of listhesis. FACET AND OSSEOUS STRUCTURES: Vertebral body height is well-maintained. There is no evidence of acut e fracture, bone marrow edema or destructive changes. There is no significant facet arthropathy. INTERVERTEBRAL DISC SPACES: Intervertebral disc are well-maintained without evidence of significant degenerative change. There is no evidence of disc herniation. NEUROLOGIC STRUCTURES: Diffuse signal abnormality is identified throughout the spinal cord extending from C2 through the upper thoracic spine (T2). There is widening of the spinal cord with predominantl y T2 hyperintense changes. Gradient echo images demonstrates susceptibility within the spinal cord be ginning at the top of C5 and extending to T1. This characteristic of focal hemorrhage within the cord . In the left lateral epidural space extending from the C4 level to the upper thoracic spine there is crescent shape T1 hyperintensity which also includes a small enhancing nodule measuring approximatel y 4 mm located at the C6 level. The epidural findings are characteristic of acute to subacute blood. Intradural space involvement cannot be excluded. CONCLUSION: 1. Diffuse spinal cord enlargement with edema and evidence of intramedullary hemorrhage. This is ass ociated with left lateral extra-axial hemorrhage and a small focus of enhancement at the C6 level. Di fferential considerations would include hemorrhagic spinal cord edema associated with a vascular malf ormation or trauma. Other forms of vasculopathy must also be considered. 2. No evidence of acute bony abnormality 3. No evidence of disc herniation. Electronically signed by: Braden Murphy MD 01/29/2018 4:44 PM EDT
[2018-01-29] MEDS ORDERED: SODIUM CHLOR 0.9% 1000 ML INJ 1,000 ML IV SCH (18:02)
[2018-01-29] MEDS: ENALAPRILAT 1.25 MG/ML VIAL IV PUSH PRN ×2 (18:12→21:20)
[2018-01-29] MEDS: HYDROCORTISONE SOD SUCCINATE 100 MG VIAL IV PUSH SCH ×2 (18:12→23:42)
--- NOTE | 2018-01-29 19:28 | HHI.DS ---
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 Patient was recently discharged yesterday after a hospital stay for chest pain and shoulder pain. Patient was cleared from a cardiology standpoint and sent home. According to family she has not been able to eat or keep anything down she has been nauseated and vomiting since she has been released from the hospital. She is also complaining of 8/10 back pain, intermittent, throbbing, with associated nausea. Worse with movement but has been better with pain medication. Family also states patient has not had a bowel movement since Tuesday. Family is concerned because patient has been declining healthwise since July and lack of appetite. Upon examination patient is laying in bed dry heaving complaining of back pain and asking for pain medication. Family is afraid to take her home again because they are concerned that she will fall due to her weakness. She denies any associated chest pain, shortness of breath, fever or chills. CBC/BMP: 01/28/18 0637 01/29/18 0526 Significant Findings Laboratory Tests Test 01/26/18 23:55 01/27/18 10:48 01/27/18 13:42 01/27/18 20:00 Urine Ketones 10 mg/dL (NEG) Urine RBC 7 /hpf (0-3) Urine Bacteria RARE /hpf (NONE) Urine Mucus FEW /lpf (OCC) Platelet Count 102 TH/MM3 (150-450) Neutrophils (%) (Auto) 89.3 % (16.0-70.0) Lymphocytes (%) (Auto) 3.7 % (9.0-44.0) Lymphocytes # (Auto) 0.2 TH/MM3 (1.0-4.8) Platelet Estimate LOW (NORMAL) Tear Drop Cells 1+ (NORMAL) Ovalocytes 2+ (NORMAL) Blood Urea Nitrogen 6 MG/DL (7-18) Creatinine 0.28 MG/DL (0.50-1.00) 0.43 MG/DL (0.50-1.00) Random Glucose 116 MG/DL (74-106) 139 MG/DL (74-106) Albumin 2.2 GM/DL (3.4-5.0) Calcium Level 7.4 MG/DL (8.5-10.1) 7.3 MG/DL (8.5-10.1) Sodium Level 123 MEQ/L (136-145) 126 MEQ/L (136-145) Potassium Level 3.1 MEQ/L (3.5-5.1) Chloride Level 90 MEQ/L (98-107) 95 MEQ/L (98-107) Carbon Dioxide Level 19.5 MEQ/L (21.0-32.0) Protein Corrected Calcium 7.4 MG/DL (8.5-10.1) 7.7 MG/DL (8.5-10.1) Total Protein 6.3 GM/DL (6.4-8.2) Test 01/28/18 06:37 01/29/18 05:26 Platelet Count 106 TH/MM3 (150-450) Neutrophils (%) (Auto) 86.5 % (16.0-70.0) Lymphocytes (%) (Auto) 5.5 % (9.0-44.0) Lymphocytes # (Auto) 0.3 TH/MM3 (1.0-4.8) Creatinine 0.29 MG/DL (0.50-1.00) 0.47 MG/DL (0.50-1.00) Calcium Level 7.4 MG/DL (8.5-10.1) 7.5 MG/DL (8.5-10.1) Sodium Level 129 MEQ/L (136-145) 133 MEQ/L (136-145) Protein Corrected Calcium 7.7 MG/DL (8.5-10.1) 8.1 MG/DL (8.5-10.1) Total Protein 6.0 GM/DL (6.4-8.2) C-Reactive Protein 0.90 MG/DL (0.00-0.30) PE at Discharge GENERAL: Well-nourished, well-developed patient. SKIN: Warm and dry. HEAD: Normocephalic. EYES: No scleral icterus. No injection or drainage. NECK: Supple, trachea midline. No JVD or lymphadenopathy. CARDIOVASCULAR: Regular rate and rhythm without murmurs, gallops, or rubs. RESPIRATORY: Breath sounds equal bilaterally. No accessory muscle use. GASTROINTESTINAL: Abdomen soft, non-tender, nondistended. EXTREMITIES: No cyanosis, or edema. NEUROLOGICAL: Awake, alert, and oriented x 3. Left hand and leg are 3 out of 5 strength, compared to 5 out of 5 on right Hospital Course 62F with h/o Lupus and Type 2 Diabetes presented to the ER on 01/26 with generalized weakness and electrolyte imbalance following two days of nausea/ vomiting. She was rehydrated and hyponatremia, hypocalcemia, etc. seemed to be improving. When I met her on 01/28 she complained of left arm and leg weakness, and exam was consistent with this complaint, showing 3/5 strength in UE and LE, but 5/5 on right. Stroke work up was initiated, but CT scan was negative. MRI was completed later in the day and showed unexplained subarachnoid hemorrhage and trace collection of blood in the ventricles. Since a stroke wasn't the cause of her left side weakness, an MRI of the C-spine was ordered, which revealed an intramedullary hemorrhage associated with edema of the c-spine and a signal focus at C6 level. Neurology was consulted, and after reviewing the results concluded that a transfer to [facility] would be the best option for managing her condition. I spoke with Dr. Durand (Neurologist) who is reviewing films and speaking with the stroke team to find out where the best placement would be for Mrs. Anne's condition. Spinal hemorrhages are rare, and intermedullary spinal hemorrages are the rarest among that category. Most common cause of this presentation is an AVM, but there have been cases described in the literature that were related to vasculitis caused by lupus flare up. She is being covered with Solu-Cortef until vasculitis can be ruled out, or AVM can be ruled in. Transfer to [facility] is currently underway and we are expecting a bed assignment soon. Patient and her family are aware of the plan to transfer. Secondary but pertinent health conditions include elevated blood pressure and type 2 diabetes. Pt Condition on Discharge: Stable Discharge Disposition: Trnsfr to Other Facility Discharge Time: > 30 minutes Discharge Instructions DIET: Follow Instructions for: As Tolerated, No Restrictions Activities you can perform: Weight Bearing as Soha Eladio Garza MD January 29, 2018 19:28
--- NOTE | 2018-01-29 19:39 | RADRPT ---
EXAM DATE: 01/29/2018 7:31 PM EDT AGE/SEX: 62 years / Female INDICATIONS: CVA. CLINICAL DATA: This is the patient's initial encounter. Patient reports that signs and symptoms have been present for 2 days and indicates a pain score of 0/10. MEDICAL/SURGICAL HISTORY: Hypertension. . Bladder sling. COMPARISON: [facility], MRI BRAIN W/O CONTRAST, 01/28/2018. . TECHNIQUE: Multiplanar, multisequence examination of the brain was performed without and with 8 ml Om niscan (gadodiamide) contrast as a single exam dose. FINDINGS: Sulcal T2 hyperintensity remains evident on FLAIR imaging. These findings are characteristic of the s ubarachnoid blood. There is been no change in the amount compared to the prior MRI. Trace blood is also evident in the occipital horns of the lateral ventricles. There is no evidence of restricted diffusion to indicate an evolving infarct. There is no significant parenchymal hemorrhage. CSF spaces are stable. There is no significant ventricular dilatation. CONCLUSION: 1. Stable evaluation the brain continuing to demonstrate a small amount subarachnoid blood in the oc cipital region and trace hemorrhage within the lateral ventricles 2. No evidence of acute infarct, parenchymal hemorrhage, mass, edema or enhancing lesions. Electronically signed by: Braden Murphy MD 01/29/2018 7:37 PM EDT
[2018-01-29] MEDS ORDERED: IOHEXOL 350 MG/ML 10 ML VIAL (for RAD DIAG) IVCONTRAST ONE (20:09)
--- NOTE | 2018-01-29 20:26 | MB ---
cc: Juan Joseph MD DATE: 01/29/2018 HISTORY OF PRESENT ILLNESS: This is a 62-year-old right handed woman with a history of hypertension, non-insulin dependent diabetes, hypercholesterolemia, hypothyroidism, lupus for over 27 years, rheumatoid arthritis. Her lupus mainly was dry eyes, a bit of a rash on her back, but sometimes on her face she would have a rash. She was on Plaquenil some years back, but it affected her vision, so she stopped it. She was on 5 mg of prednisone a day, but that evidently was stopped about 2 years ago. In 12/2015, she was recommended by a diesel automotive technician to start one of the biologics, but she could not afford it, and probably one of the monoclonal antibodies, but she did not take it and she has not been on any treatment since. She has had some weight loss in the last year. She has had occasional headaches but not frequent. Last Tuesday, she developed pain in her neck on the back of her head and left side, down the back of her shoulder and noticed shortly thereafter or within a day thereafter some numbness in the left lower leg and left hand would not work and came into the hospital. She has been on 81 mg of aspirin every day but no other blood thinners. She was found here to have a mild subarachnoid and intraventricular hemorrhage noted on MRI. Neurosurgery had seen her, noticed that she was weak on the left side. She has had a little bit of a droopiness to the left eye in the last several days. She has a history of scleral injection in the left eye, not uncommonly. She was seen in the ER about a week ago with generally feeling weak and anemia. She was admitted to the hospital on 01/24 because she felt her arm numb and pain in her chest and up in her neck. REVIEW OF SYSTEMS: She denies any history of RI, CABG, stent, angioplasty, AFib, Coumadin; renal, hepatic, pulmonary disease; ulcer, cancer, seizure, stroke. SOCIAL HISTORY: Not a smoker or drinker. No drugs. Lives with her . FAMILY HISTORY: Negative for cancer, seizure, stroke. Negative for lupus. MEDICATIONS: She was just on, it looks, like prednisone taper. Also on nystatin, tramadol, thyroid medicine, metformin, 81 of aspirin, lovastatin, metoprolol, losartan. ALLERGIES: SHE IS ALLERGIC TO CODEINE. PHYSICAL EXAMINATION: VITAL SIGNS: Afebrile, 92, 16, 135/65. Initial blood pressure 198/95. CARDIOVASCULAR: There were no carotid bruits. Heart was regular rhythm. I did not detect a murmur. NEUROLOGIC AND MUSCULOSKELETAL: Pupils are equal. Visual atkinson are full. Extraocular movements intact, without nystagmus. There is some slight ptosis to the left eye, but she is able to open it fully. Face moves symmetrically with normal sensation. Tongue was midline. She is nontender about the cervical spine. There is no mass there. There is a slight vague rash on the left shoulder, not severe. She had normal strength in the right upper extremity throughout, except the FDI appears to be weak on the right. On the left upper extremity, her deltoid is normal, as is the biceps, but her triceps is very weak, about 3+/5; finger extensors 2/5, supervisor drilling and shooting 3-/5. Left lower extremity iliopsoas is about 2/5, as is hamstring and quadriceps; dorsiflexion of the foot is about a 1/5. Toes were downgoing bilaterally. There is no ankle clonus. She is slightly hyperreflexive on the left knee jerk compared to the right, about a 3+ on the left and 2+ on the right; trace in the upper extremities. Pinprick is diminished actually on the right side of her leg and arm compared to the left, and also on her body. She does not have a definite pin level but appears to have some diminished pinprick starting up in the cervical region on the right side, although she can still feel a pinprick, although still feels sharpness; however, it is inconsistent. She has been having some urinary incontinence according to her daughter. LABORATORY DATA: Her sed rate was 77 on 01/19/2018, now it is 12. Her CBC is normal, except her platelet count is low at 102; it was 157 on 01/24, 187 on 01/11. Urine drug screen is negative. UA showed 10 ketones, 7 red cells. Coags normal. Basic metabolic profile, her sodium was 135 on 01/11, on 01/19 at 136, on admission here 136 and then it dropped down to 123 and has been slowly coming up. Her creatinine is normal. Calcium is corrected low at 8.1, magnesium is 1.6. Total protein is low at 6. LFTs were normal. Albumin 2.2. Vitamin D low at 26. Cortisol levels normal. Troponins were negative. TSH normal. B12 was normal on 01/19. Lipase normal. LDL cholesterol normal. CRP is only 1.3. IMAGING: She had a CAT scan of her brain on 01/24 that was read as negative. She had another CT of the brain on 01/28, also basically negative. She had an aortic CTA which is negative. She had an MRI of her brain that showed minimal subarachnoid blood, some trace blood in the ventricles, some white matter changes; showed some diffuse subarachnoid hemorrhage posteriorly, white matter change in the right basal ganglia region, some mild white matter changes throughout. Some periventricular hyperintensity on the bilateral occipital poles of the occipital horn to the lateral ventricle, could be reactive. The MRI of the cervical spine today is read as diffuse spinal cord enlargement with edema and some intramedullary hemorrhage and left lateral extraaxial hemorrhage, small focus of enhancement at the C6 level. No cord compression was noted per se. Unfortunately, the cervical spine film is not coming up with what is in the computer here, but I did get to review those with Dr. Murphy down in radiology prior to coming up to the floor. IMPRESSION AND PLAN: History of lupus and rheumatoid. Sedimentation rate elevated a few days ago, really sounds like some hemorrhage around the cord with cord edema that may have refluxed up into the brain. We will check a CTA of the neck and [place] of [place]. A cord AVM could be considered. Vasculitis or lupus involvement is also considered. I think probably best is to transfer the patient to [facility] for arteriogram of the spinal cord to see if there is any spinal cord arteriovenous malformation and we will give her high-dose steroids at this time. Steroids are hydrocortisone 100 mg q. 6 hours. Other meds are that of Flexeril p.r.n.; Pravachol, which we will stop at this time; thyroid medicine and some other p.r.n. medications. Her blood pressure has been elevated here and it will be okay to run her 120-140 systolic. I notified the nurse. I think the best thing to do would be to transfer up to [facility] or [facility] to get an arteriogram of her spinal cord. I have ordered some other workup here, but we will try to get her transferred out tonight. ADDENDUM The patient overall has left ptosis, weakness of the left arm, from C7 down, entire weakness of the left lower extremity, tight hemisensory loss. This could all go with her cord injury and I think she may have a spinal cord AVM. In talking with her family and herself, she appears to have not changed since , so she has been fairly stable neurologically since i.e., the last 3 days. MD IVAN Armstrong/NANO/ , 06:13 PM , 07:31 PM
--- NOTE | 2018-01-29 20:26 | RADRPT ---
EXAM DATE: 01/29/2018 8:08 PM EDT AGE/SEX: 62 years / Female INDICATIONS: Cerebrovascular accident. CLINICAL DATA: This is the patient's initial encounter. Patient reports that signs and symptoms have been present for 1 day and indicates a pain score of 0/10. MEDICAL/SURGICAL HISTORY: Cardiovascular disease. Hypertension. Diabetes. Appendectomy. Hysterec brice. RADIATION DOSE: 9.57 CTDI (mGy) COMPARISON: C, CTA CAROTID ARTERIES W 3D RECON, 01/29/2018. . TECHNIQUE: Volumetric scanning was performed using a multi-row detector CT scanner during bolus infu faith of 74 ml Omnipaque 350 (iohexol) nonionic water-soluble contrast as a single exam dose. The d triny was post processed with a variety of visualization algorithms including full volume maximum inten sity projection, multi-planar sliding thin slab reformation, curved planar reformation, and surface r endering techniques. Using automated exposure control and adjustment of the mA and/or kV according t o patient size, radiation dose was kept as low as reasonably achievable to obtain optimal diagnostic quality images. FINDINGS: Anterior circulation: The carotid siphons are patent but demonstrate some mild luminal irregularity. An anomalous vessel is identified extending from the cavernous segment of the left internal carotid a rtery to the distal basilar artery. This is characteristic of a persistent trigeminal artery. The rig ht posterior cerebral artery originates directly from the anterior circulation. The middle and anteri or cerebral vessels are patent and demonstrate focal short segmental areas of narrowing. There is no significant occlusive disease or high-grade stenosis.. There is no evidence of focal aneurysm. Posterior circulation: The intracranial segments of the vertebral arteries are very small. There is s ignificant narrowing of the proximal basilar artery. The basilar artery returns to normal caliber dis marika to the anomalous vessel described in the anterior circulation. Posterior cerebral arteries are otherwise patent. There is no evidence of focal aneurysm. CONCLUSION: 1. 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 2. Small distal vertebral arteries and proximal basilar artery 3. Mild stenotic segments are identified in the cerebral vessels characteristic of vasculopathy. 4. No evidence of high-grade stenosis, occlusion or aneurysm. 5. No evidence of intracranial vascular malformation. Electronically signed by: Braden Murphy MD 01/29/2018 8:25 PM EDT
[2018-01-29 20:55] LABS: C-REACTIVE PROTEIN 1.3 MG/DL (0.00-0.30)
[2018-01-29 21:08] LABS: FOLATE 11.6 NG/ML (3.1-17.5); FREE T4 1.54 NG/DL (0.76-1.46); TROPONIN I 0.04 NG/ML (0.02-0.05)
[2018-01-29 21:09] LABS: PROTHROMBIN TIME - PATIENT 9.8 SEC (9.8-11.6)
[2018-01-29] MEDS: METOPROLOL TARTRATE 25 MG TAB PO SCH (21:20)
[2018-01-29] MEDS ORDERED: LOSARTAN 25 MG TAB PO ONE (22:00)
[2018-01-29 22:15] LABS: RHEUMATOID FACTOR SCREEN NEGATIVE (NEGATIVE)
[2018-01-29] MEDS: ACETAMINOPHEN 325 MG TAB PO PRN (23:52)
[2018-01-30 04:00] VITALS: BP 163/75; PULSE 82; RESP 17; TEMP 98.4; O2SAT 99
[2018-01-30] MEDS: HYDROCORTISONE SOD SUCCINATE 100 MG VIAL IV PUSH SCH ×2 (05:44→13:42)
[2018-01-30] MEDS: LEVOTHYROXINE SODIUM 50 MCG TAB PO SCH (05:45)
[2018-01-30 07:14] LABS: BICARBONATE 26.4 MEQ/L (21.0-32.0); CALCIUM 7.9 MG/DL (8.5-10.1); CREATININE 0.3 MG/DL (0.50-1.00)
[2018-01-30 08:00] VITALS: BP 167/87; PULSE 80; RESP 18; TEMP 98.3; O2SAT 100
[2018-01-30] MEDS: METOPROLOL TARTRATE 25 MG TAB PO SCH (10:19)
[2018-01-30] MEDS: LOSARTAN 50 MG TAB PO SCH (10:19)
[2018-01-30] MEDS: DOCUSATE SODIUM 50 MG/SENNA 8.6 MG TAB PO SCH (10:20)
[2018-01-30] MEDS: CHOLECALCIFEROL (VIT D3) 1000 UNIT TAB PO SCH (10:20)
[2018-01-30] MEDS: PANTOPRAZOLE SODIUM 40 MG VIAL IV PUSH SCH (10:22)
[2018-01-30] MEDS: NYSTATIN/TRIAMCINOLONE OINT 15 GM TUBE TOPICAL SCH (10:23)
[2018-01-30] MEDS: SODIUM CHLORIDE 0.9% FLUSH 10 ML FLUSH IV FLUSH SCH (10:24)
[2018-01-30 11:30] VITALS: BP 176/90; PULSE 90; RESP 17; TEMP 98.4; O2SAT 99
--- NOTE | 2018-01-30 12:23 | RADRPT ---
EXAM DATE: 01/29/2018 9:06 PM EDT AGE/SEX: 62 years / Female INDICATIONS: Cerebrovascular accident. CLINICAL DATA: This is the patient's initial encounter. Patient reports that signs and symptoms have been present for 1 day and indicates a pain score of 0/10. MEDICAL/SURGICAL HISTORY: Cardiovascular disease. Hypertension. Diabetes. Appendectomy. Cholecys tectomy. RADIATION DOSE: 9.57 CTDI (mGy) COMPARISON: No prior [facility] exams available for comparison. TECHNIQUE: Volumetric scanning was performed using a multirow detector CT scanner during bolus infus ion of 74 ml Omnipaque 350 (iohexol) nonionic water-soluble contrast as a cumulative dose for multip le exams. The data was postprocessed with a variety of visualization algorithms including full-volu me maximum intensity projection, multiplanar sliding thin-slab reformation, curved-planar reformation , and surface-rendering techniques. Using automated exposure control and adjustment of the mA and/or kV according to patient size, radiation dose was kept as low as reasonably achievable to obtain opti mal diagnostic quality images. FINDINGS: Aortic Arch: There is a three-vessel origin of the great vessels from the aorta. No evidence of ost ial narrowing Right Carotid: The common carotid artery is intact. The carotid bulb has a normal configuration wit hout ulceration or narrowing. The internal carotid artery lumen is smooth without stenosis. The ext ernal carotid artery is intact. Left Carotid: The common carotid artery is intact. The carotid bulb has a normal configuration with out ulceration or narrowing. The internal carotid artery lumen is smooth without stenosis. The exte rnal carotid artery is intact. Vertebrals: The vertebral arteries have a symmetric diameter. No stenotic lesions are seen. Elevated flow velocities and ICA/CCA ratios have been found to correlate with increased degrees of ve ssel stenosis, calculated as percentage of diameter relative to a normal segment of distal ICA/CCA. CONCLUSION: 1. No carotid stenosis seen. Electronically signed by: Devyn Davis MD 01/30/2018 12:22 PM EDT
--- NOTE | 2018-01-30 12:52 | HHI.PR ---
Subjective Remarks feels better li better after steriods Objective Vital Signs Date Time Temp Pulse Resp B/P (MAP) Pulse Ox O2 Delivery O2 Flow Rate FiO2 01/30/18 11:30 98.4 90 17 176/90 (118) 99 01/30/18 08:00 98.3 80 18 167/87 (113) 100 01/30/18 04:00 98.4 82 17 163/75 (104) 99 01/29/18 23:58 99.4 101 18 165/88 (113) 100 01/29/18 19:43 98.0 98 18 190/99 (129) 99 01/29/18 16:00 98.7 95 18 195/96 (129) 99 I/O 01/29/18 01/29/18 01/29/18 01/30/18 01/30/18 01/30/18 07:00 15:00 23:00 07:00 15:00 23:00 Intake Total 240 ml 480 ml 480 ml Balance 240 ml 480 ml 480 ml Intake Oral 240 ml 480 ml 480 ml # Voids 3 4 5 # Bowel Movements 1 0 Result Diagram: 01/28/18 0637 01/30/18 0624 Objective Remarks left ptosis mild pupil= small still weak distal lue can wiggle left foot better but still weak lle mostly 1-2/5 Assessment and Plan Assessment and Plan imp for [facility] for 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
[2018-01-30] MEDS: ACETAMINOPHEN 325 MG TAB PO PRN (13:45)
--- NOTE | 2018-01-30 14:53 | HHI.PR ---
Subjective Remarks 62-year-old female with cervical intramedullary hemorrhage who is awaiting transport to [facility]. She has no worsening of her current condition , symptoms include left hand, arm, leg weakness Objective Vitals Vital Signs Date Time Temp Pulse Resp B/P (MAP) Pulse Ox O2 Delivery O2 Flow Rate FiO2 01/30/18 11:30 98.4 90 17 176/90 (118) 99 01/30/18 08:00 98.3 80 18 167/87 (113) 100 01/30/18 04:00 98.4 82 17 163/75 (104) 99 01/29/18 23:58 99.4 101 18 165/88 (113) 100 01/29/18 19:43 98.0 98 18 190/99 (129) 99 01/29/18 16:00 98.7 95 18 195/96 (129) 99 I/O 01/29/18 01/29/18 01/29/18 01/30/18 01/30/18 01/30/18 07:00 15:00 23:00 07:00 15:00 23:00 Intake Total 240 ml 480 ml 480 ml Balance 240 ml 480 ml 480 ml Intake Oral 240 ml 480 ml 480 ml # Voids 3 4 5 # Bowel Movements 1 0 Result Diagram: 01/28/18 0637 01/30/18 0624 Objective Remarks GENERAL: Well-nourished, well-developed patient. SKIN: Warm and dry. HEAD: Normocephalic. EYES: No scleral icterus. No injection or drainage. NECK: Supple, trachea midline. No JVD or lymphadenopathy. CARDIOVASCULAR: Regular rate and rhythm without murmurs, gallops, or rubs. RESPIRATORY: Breath sounds equal bilaterally. No accessory muscle use. GASTROINTESTINAL: Abdomen soft, non-tender, nondistended. EXTREMITIES: No cyanosis, or edema. NEUROLOGICAL: Awake, alert, and oriented x 3. 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 Intramedullary hemorrhage of cervical spine Marked swelling/edema in cervical spine with signal focus at C6 level Suspicious for AVM which is also most common cause of this rare condition This condition is beyond the scope of care that [facility] can provide, therefore transferred to [facility] was arranged yesterday evening Patient remains in our hospital this morning awaiting ambulance transport Left upper and lower extremity weakness Both MRI and CT brain were negative for stroke MRI of brain showed unexplained areas of tiny hemorrhage and subarachnoid and ventricular spaces MRI of C-spine diagnosed intramedullary hemorrhage with focus at C6 Neurology recommended transfer to [facility] Hypocalcemia Improved but not resolved Repeat calcium gluconate 1 g IV Follow-up ionized calcium level with a.m. labs Hyponatremia Nearly resolved h/o Lupus Cervical spine was within normal limits of lupus-induced vasculitis is on the list of things that could cause an intramedullary hemorrhage of the spine CRP was slightly elevated, patient was started on Solu-Cortef yesterday evening Hypertension Vascular neurologist recommends maintaining blood pressure between 160 and 180 systolic DVT prophylaxis SCDs Discharge planning Patient is being transferred to [facility] today Eladio Garza MD January 30, 2018 14:53
[2018-01-30 21:50] LABS: ALB/GLOB RATIO (SPE) 0.89 (1.39-2.23)
[2018-02-01 23:51] LABS: VWF RISTOCETIN CO FACTOR 271 (42-200)
[2018-02-02 13:54] LABS: THROMBIN TIME 16 sec (13-19); VWF AG 277 % (50-217)
[2018-02-02 19:53] LABS: COAG FACTOR VIII 258 (50-180)
[2018-02-02 23:52] LABS: APTT VON WILL EVAL 23 sec (22-34)
== END 2018-01-30 14:17 | disposition short-term general hospital (02) | DRG 91 ==
LOC: NEPC 14:33 → NEDA 17:33 → NEPHCDU 19:10 → OBSVTOIN 01-27 15:12 → N06B 01-28 00:24
PROVIDERS: ADMIT Family Medicine; ATTEND Family Medicine
DX: G95.19 Other vascular myelopathies (principal); I61.5 Nontraumatic intracerebral hemorrhage, intraventricular; I60.9 Nontraumatic subarachnoid hemorrhage, unspecified; E87.1 Hypo-osmolality and hyponatremia; I10 Essential (primary) hypertension; E11.9 Type 2 diabetes mellitus without complications; D64.9 Anemia, unspecified; E86.0 Dehydration; E83.51 Hypocalcemia; R63.0 Anorexia; E03.9 Hypothyroidism, unspecified; M06.9 Rheumatoid arthritis, unspecified; G89.29 Other chronic pain; M54.5 Low back pain; E78.00 Pure hypercholesterolemia, unspecified; E07.9 Disorder of thyroid, unspecified; E78.5 Hyperlipidemia, unspecified; R62.7 Adult failure to thrive; R63.4 Abnormal weight loss; R10.9 Unspecified abdominal pain; R11.2 Nausea with vomiting, unspecified; H11.32 Conjunctival hemorrhage, left eye; H02.402 Unspecified ptosis of left eyelid; R53.1 Weakness; M54.6 Pain in thoracic spine; R60.9 Edema, unspecified; R29.810 Facial weakness; R90.82 White matter disease, unspecified; Z82.3 Family history of stroke; Z79.84 Long term (current) use of oral hypoglycemic drugs; Z82.49 Family history of ischemic heart disease and other diseases of the circulatory system
CPT/HCPCS: 70450; 70496; 70498; 70551; 70553; 71275; 72156; 74018; 74174; 76775; 80048; 80053; 80307; 81001; 82306; 82330; 82533; 82550; 82746; 82948; 83735; 83921; 84155; 84165; 84425; 84439; 84443; 84484; 85025; 85240; 85245; 85246; 85247; 85610; 85652; 85670; 85730; 86038; 86039; 86140; 86430; 86592; A9579; C9113; J0610; J1720; J1885; J2270; J3480; J7030; Q9967

== ENCOUNTER 2018-03-01 09:06 | Inpatient (IN) ==
[2018-03-04] MEDS ORDERED: Insulin NovoLIN Regular Correctional Sugar Inj ONE (23:22)
[2018-03-05] MEDS ORDERED: Magnesium Sulfate Inj 2 GM in Sodium Chlor 0.9% Inj 96 ML IV.SIG PRN (00:01)
[2018-03-05] MEDS ORDERED: Potassium Phosphate 500 MG Soluble Tablet PO PRN ×2 (00:01)
[2018-03-05] MEDS ORDERED: Potassium Chloride 25 MEQ Effervescent Tablet PO PRN (00:01)
[2018-03-05] MEDS ORDERED: Magnesium Sulfate Inj 4 GM in Sodium Chlor 0.9% Inj 92 ML IV.SIG PRN (00:01)
[2018-03-05] MEDS ORDERED: Sodium Phosphate Inj 30 MMOL in Sodium Chlor 0.9% Inj 240 ML IV.SIG PRN (00:01)
[2018-03-05] MEDS ORDERED: Potassium Chlor 40 mEq Premix 40 MEQ/100 ML PIGGYBACK IV.SIG PRN ×2 (00:01)
[2018-03-05] MEDS ORDERED: Amiodarone Inj 150 MG in Dextrose 5% in Water Inj 97 ML IV.SIG ONE ×2 (02:44)
[2018-03-05] MEDS: Mag Sulf 1 gm/100 ml Premix 100 ML IV.SIG SCH ×2 (03:05→04:10)
[2018-03-05] MEDS: Metoprolol Tartrate 25 MG Tablet PO SCH ×3 (03:07→22:11)
[2018-03-05] MEDS ORDERED: Phenylephrine Inj 160 MG in Sodium Chlor 0.9% Inj 484 ML IV.CONT PRN (03:12)
[2018-03-05] MEDS: Insulin NovoLIN Regular Correctional Sugar Inj SQ SCH (04:10)
[2018-03-05] MEDS: Sodium Chloride 0.45 % Inj 1,000 ML IV.CONT SCH ×2 (04:11→22:12)
[2018-03-05] MEDS: DEXTROSE 5% IV.SIG SCH ×4 (04:12→11:48)
[2018-03-05] MEDS: SODIUM ACETATE IV.SIG SCH ×4 (04:12→11:48)
[2018-03-05] MEDS: WATER IV.SIG SCH ×4 (04:12→11:48)
[2018-03-05 05:51] LABS: Hematocrit 22.9 % (35.0-46.0); Hemoglobin 7.5 gm/dL (11.6-15.3); Mean Corpuscular HGB Conc 32.6 % (32.0-36.0); Mean Corpuscular Hemoglobin 30.4 pg (27.0-34.0); Mean Corpuscular Volume 93.2 fL (80.0-100.0); Platelet Count 34 th/mm3 (150-450); Red Blood Count 2.46 mil/mm3 (4.00-5.30); Red Cell Distribution Width 22.1 % (11.6-17.2)
[2018-03-05 06:13] LABS: Alanine Aminotransferase 14 U/L (10-53); Albumin 1.8 g/dL (3.4-5.0); Anion Gap 12 meq/L (5-15); Aspartate Aminotransferase 17 U/L (15-37); Blood Urea Nitrogen 14 mg/dL (7-18); Calcium 6.3 mg/dL (8.5-10.1); Carbon Dioxide 20.9 meq/L (21.0-32.0); Chloride 116 meq/L (98-107); Glomerular Filtration Rate Greater Than 89 mL/min (>89); Glucose,Random 183 mg/dL (74-106); Magnesium 2.7 mg/dL (1.5-2.5); Potassium 3.2 meq/L (3.5-5.1); Sodium 149 meq/L (136-145)
[2018-03-05 06:32] LABS: Alkaline Phosphatase 237 U/L (45-117); Total Protein 4.8 g/dL (6.4-8.2); Troponin I 0.03 ng/mL (0.02-0.05)
[2018-03-05] MEDS: Levothyroxine 50 MCG Tablet PO SCH (06:53)
[2018-03-05] MEDS: Potassium Phosphate Inj 30 MMOL in Sodium Chlor 0.9% Inj 250 ML IV.SIG PRN (08:47)
[2018-03-05] MEDS: Gabapentin 300 MG Capsule PO SCH ×3 (08:50→18:39)
[2018-03-05] MEDS: Famotidine 20 MG Tablet PO SCH ×2 (08:53→22:10)
[2018-03-05] MEDS ORDERED: Metoprolol Tartrate 25 MG Tablet PO SCH (09:00)
--- NOTE | 2018-03-05 09:07 | P.PNCC ---
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 she was sent to [facility] for procedural management of these. She was then transferred to [facility] on 02/28. Please see the dictated hospitalist consult note on 02/28 on admission to [facility] for a detailed record of the hospital course while at [facility]. Today, she was found to be very tachycardic in the 160s and hypotensive with sbp in the 70s. She was emergently transferred to the ICU after rapid response was called for evaluation and management of her hypotension. Of note, she did not have iv access. I met her on arrival to the ICU. I placed 2 18g piv. 12-lead EKG confirms sinus tachycardia. I due to the fast rate, I gave 6mg adenosine to slow it down diagnostically, and it slowed down temporarily to a HR in the 70s, confirming sinus rhythm. I performed bedside critical care echocardiography which demonstrates grossly preserve biventricular function. in particular, RV is decompressed and well-functioning. IVC is completely collapsable. no pericardial effusion. I gave her 3L NS bolus ivf which improved her SBP to 110s and decreased her HR to 110s. She is afebrile. stat CBC shows anemia (history of recent femoral artery pseudoaneurysm), CMP demonstrates elevated AST and Alk phos, elevated lactate at 3.7. Cr elevated above baseline. Patient denies any complaints to me. she is mostly italian speaking, but communicates in basic syriac. specifically denies chest pain, shortness of breath, fever/chills, nausea, vomiting, abdominal pain, constipation, diarrhea. I discussed with her family, she has been eating and drinking well even up to today. ROS otherwise negative. 03/02 Patient is awake lying in bed in TRAV. On room air oxygen. T:103.2 this morning She was hypotensive overnight initially placed on Neosyn now off pressor with BP 147/67 with MAP 96. 03/03 No events overnight. Seems more awake and alert this morning. T: 100.2 at midnight. BP and HR better ( 119/58 with MAP 83mmHg). On no pressors. BC from 03/01: E.coli ESBL 6/30: clinically improving. slightly tachycardic. on appropriate therapy for her ESBL e. coli. denies complaints. hemodynamically stable. on room air. 03/05: Patient developed worsening respiratory distress yesterday and required endotracheal intubation and was placed on mechanical ventilation. Hypotension overnight for which patient was started on phenylephrine. Developed A. fib with RVR and was started on amiodarone gtt. Objective Vital Signs / I&O: Vital Signs 03/05/18 00:05 03/05/18 00:30 03/05/18 01:00 Temperature Pulse Rate 94 H 94 H 95 H Respiratory Rate 28 H 28 H 28 H Blood Pressure 110/71 107/70 Pulse Oximetry 100 100 100 03/05/18 01:30 03/05/18 02:00 03/05/18 02:30 Temperature Pulse Rate 97 H 96 H 150 H Respiratory Rate 28 H 28 H 28 H Blood Pressure 104/66 108/70 87/58 L Pulse Oximetry 100 100 100 03/05/18 03:00 03/05/18 03:02 03/05/18 03:17 Temperature 98.4 F Pulse Rate 153 H 146 H 154 H Respiratory Rate 28 H 28 H 28 H Blood Pressure 79/60 L 79/60 L 83/54 L Pulse Oximetry 100 97 100 03/05/18 03:30 03/05/18 03:41 03/05/18 03:45 Temperature Pulse Rate 132 H 126 H Respiratory Rate 28 H 28 H 28 H Blood Pressure 87/64 L 84/63 L Pulse Oximetry 100 100 03/05/18 04:00 03/05/18 04:15 03/05/18 04:30 Temperature 99.3 F Pulse Rate 135 H 108 H 110 H Respiratory Rate 28 H 28 H 28 H Blood Pressure 82/67 L 91/69 L 106/74 Pulse Oximetry 100 100 100 03/05/18 04:45 03/05/18 05:00 03/05/18 05:02 Temperature Pulse Rate 104 H 109 H 106 H Respiratory Rate 28 H 29 H 28 H Blood Pressure 90/62 L 93/58 L Pulse Oximetry 100 03/05/18 05:15 03/05/18 05:30 03/05/18 05:45 Temperature Pulse Rate 80 80 112 H Respiratory Rate 20 9 L 5 L Blood Pressure 91/61 L 97/68 L 81/65 L Pulse Oximetry 03/05/18 06:00 03/05/18 06:15 03/05/18 06:30 Temperature Pulse Rate 110 H 82 82 Respiratory Rate 19 9 L 1 L Blood Pressure 90/70 L 106/71 106/72 Pulse Oximetry 03/05/18 06:45 03/05/18 07:00 03/05/18 07:15 Temperature Pulse Rate 83 82 82 Respiratory Rate 8 L 0 L 0 L Blood Pressure 104/71 106/77 103/69 Pulse Oximetry 03/05/18 07:30 03/05/18 07:45 03/05/18 08:00 Temperature Pulse Rate 82 81 78 Respiratory Rate 0 L 1 L 6 L Blood Pressure 107/72 107/74 111/68 Pulse Oximetry 03/05/18 08:15 03/05/18 08:20 Temperature Pulse Rate 78 Respiratory Rate 28 H 28 H Blood Pressure Pulse Oximetry Intake & Output 03/04/18 03/05/18 03/05/18 18:59 06:59 18:59 Intake Total 100 / 100 Output Total 200 / 200 Balance -100 / -100 Intake: IV 100 / 100 Magnesium Sulfate 1 gm/D5W 100 100 / 100 ml Premix 100 ML @ 100 mls/hr IV.SIG Q1H [facility] Rx#:[id number] Output: Urine Amount (Catheter) 200 / 200 Straight 200 / 200 Result Diagrams: 03/05/18 05:10 03/05/18 05:10 Other Results: Microbiology Date/Time Source Procedure Growth Status 03/01/18 10:00 Urine Catheterized Urine Urine Culture - Final Escherichia Coli Esbl Positive Multi-Drug Resistant Complete Imaging: Imaging Last Impressions Brain MRI 03/03/18 0000 Signed Impressions: CONCLUSION: 1. The previously noted subarachnoid hemorrhage overlying the occipital lobes has resolved. 2. Tiny trace of residual hemorrhage in the posterior lateral ventricles. 3. Stable chronic white matter changes. 4. No new or acute intracranial process. Chest X-Ray 03/01/18 2353 Signed Impressions: CONCLUSION: Left subclavian line in good position. Head CT 03/01/18 1210 Signed Impressions: CONCLUSION: 1. Negative for an acute process CT Angiography 03/01/18 0000 Signed Impressions: CONCLUSION: 1. Negative for central pulmonary emboli. 2. Mild compensated cardiomegaly 3. Minimal consolidative changes left base with air bronchograms. Abdomen/Pelvis CT 03/01/18 0000 Signed Impressions: CONCLUSION: 1. Atelectasis or infiltrate in the posterior lung bases. 2. Air in the urinary bladder. Objective Remarks: HEENT/ Neuro: Sedated, orally intubated, Pallor present, no icterus, tongue/ mucosa moist Neck: Frost J collar in place Chest/Pulm: on mech vent, good air entry bilaterally, scattered rhonchi, no wheezing or crackles CVS: S1-S2 regular, no murmur GI/abdomen: soft, nontender, bowel sounds sluggish Extremities: warm bilaterally, no edema Assessment and Plan - Assessment and Plan Plan: A/P Assessment and Plan Plan by system Neuro: Continue sedation, daily sedation medication. CT brain: Negative or acute process MRI brain: previously noted subarachnoid hemorrhage overlying the occipital lobes has resolved. Tiny trace of residual hemorrhage in the posterior lateral ventricles. Stable chronic white matter changes. No new or acute intracranial process. Pulm: ARDS Continue mechanical ventilation, vent bundle. Peep +10, FiO2 40% currently Bronchodilators CTA chest: No PE, minimal consolidative changes left base CV: A. fib Hypotension Monitor HR and BP keep MAP>65mmHg. Hold Lopressor. On phenylephrine for hypotension. Amiodarone gtt. for A. fib Pravachol 20mg daily -Elevated troponin, type II demand ischemia NSTEMI -IVF switch to 1/2 sodium acetate @ 75cc/hr - Lactic acid cleared 1.9 - Echo 01/30 EF 50-55% -will not anticoagulate at this time given risk/benefit with recent head bleed Cortisol level: 41 Cards is following : Urinary retention Monitor renal function, electrolytes replacement per protocol. 1/2 sodium acetate @ 75cc/hr. straight i/o cath. GI: Elevated AST, Alk phos Monitor LFT's, CT abd/pelvis without evidence of overt acute cholecystitis Speech eval, diet per speech ID: Gram negative bacteremia Urinary tract infection Septic shock Continue with abx per ID ( Imipenem) ,Monitor for signs of infections ( Fever, WBC) Check BC x2 sets today 03/01 BC: E.coli ESBL 03/01 Urine cx: GNR Heme: Anemia -Monitor CBC Sacral decubitus - present on admission - does not appear grossly infected - likely not the source of infection - management per wound care nurse Endo: SSI if needed for glycemic control On Synthroid 50mcg daily,. TSH: 0.47 GI prophylaxis- On pepcid 20mg BID DVT prophylaxis- SCD, hold Heparin Sq due to recent [employer] bleed in January ( MRI brain 01/29) Lines: left subclavian placed 03/01 Condition remains critical. Time spent on critical care excluding procedures 35 minutes
--- NOTE | 2018-03-05 10:57 | P.PNID ---
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 she was sent to [facility] 01/30 for procedural management of these. Her stay at [facility] was complicated by sepsis, and she had E. coli ESBL positive UTI , but the blood cultures were negative. She was then transferred to [place] [facility] on 02/04. Today, she was found to be very tachycardic in the 160s and hypotensive with sbp in the 70s. She was emergently transferred to the ICU 03/01 , after rapid response was called for evaluation and management of her hypotension. At [place], she had urine culture from [facility] that has E. coli ESBL positive Notes reviewed Discussed with RN Further clinical deterioration, ended up getting intubated Hypotensive, on Luis-Synephrine Sedated on the vent Profoundly septic, now low WBC Chest x-ray with bilateral pulmonary infiltrates Blood culture with E. coli ESBL positive Urine culture with E. coli ESBL positive WBC okay Creatinine okay CT of the abdomen and pelvis did not show any hydronephrosis Had afib, RVR last night, on cordarone drip, now in NSR Antibiotics: Primaxin Lines: LSC TLC no evidence of infection Past Medical History: Diabetes mellitus, hypertension, hypothyroidism, systemic lupus erythematosus, rheumatoid arthritis, anemia, recent subarachnoid hemorrhage, C6 mass resection, hysterectomy, bladder sling, appendectomy, C4-C7 laminectomy, C4-T1 posterior fusion. Allergies/Adverse Reactions: Allergies codeine Allergy (Intermediate, Verified 01/24/18 17:12) nitroglycerin Adverse Reaction (Severe, Verified 01/25/18 09:14) Nausea/Vomiting Objective Vital Signs Temp Pulse Resp BP Pulse Ox 03/05/18 08:20 78 28 H 03/05/18 08:15 28 H 03/05/18 08:00 78 6 L 111/68 03/05/18 07:45 81 1 L 107/74 03/05/18 07:30 82 0 L 107/72 03/05/18 07:15 82 0 L 103/69 03/05/18 07:00 82 0 L 106/77 03/05/18 06:45 83 8 L 104/71 03/05/18 06:30 82 1 L 106/72 03/05/18 06:15 82 9 L 106/71 07/01/18 06:00 110 H 19 90/70 L 03/05/18 05:45 112 H 5 L 81/65 L 03/05/18 05:30 80 9 L 97/68 L 03/05/18 05:15 80 20 91/61 L 03/05/18 05:02 106 H 28 H 93/58 L 03/05/18 05:00 109 H 29 H 03/05/18 04:45 104 H 28 H 90/62 L 100 03/05/18 04:30 110 H 28 H 106/74 100 03/05/18 04:15 108 H 28 H 91/69 L 100 03/05/18 04:00 99.3 F 135 H 28 H 82/67 L 100 03/05/18 03:45 126 H 28 H 84/63 L 03/05/18 03:41 28 H 100 03/05/18 03:30 132 H 28 H 87/64 L 100 03/05/18 03:17 154 H 28 H 83/54 L 100 03/05/18 03:02 146 H 28 H 79/60 L 97 03/05/18 03:00 98.4 F 153 H 28 H 79/60 L 100 03/05/18 02:30 150 H 28 H 87/58 L 100 03/05/18 02:00 96 H 28 H 108/70 100 03/05/18 01:30 97 H 28 H 104/66 100 03/05/18 01:00 95 H 28 H 107/70 100 03/05/18 00:30 94 H 28 H 110/71 100 03/05/18 00:05 94 H 28 H 100 Intake and Output 03/04/18 03/05/18 03/05/18 22:59 06:59 14:59 Intake Total 100 / 100 Output Total 200 / 200 Balance -100 / -100 Intake: IV 100 / 100 Magnesium Sulfate 1 gm/D5W 100 100 / 100 ml Premix 100 ML @ 100 mls/hr IV.SIG Q1H [facility] Rx#:[id number] Output: Urine Amount (Catheter) 200 / 200 Straight 200 / 200 Vital Signs Intake & Output 03/04/18 03/05/18 03/05/18 18:59 06:59 18:59 Intake Total 100 / 100 Output Total 200 / 200 Balance -100 / -100 Intake: IV 100 / 100 Magnesium Sulfate 1 gm/D5W 100 100 / 100 ml Premix 100 ML @ 100 mls/hr IV.SIG Q1H COUNTS INCLUDE 234 BEDS AT THE [facility] Rx#:[id number] Output: Urine Amount (Catheter) 200 / 200 Straight 200 / 200 Lab - Hematology Results 03/01/18 03/02/18 03/03/18 14:00 04:45 06:21 WBC 7.1 9.7 RBC 2.72 L 2.62 L Hgb 9.8 L 8.3 L 8.0 L Hct 30.1 L 25.0 L 24.4 L MCV 91.8 92.9 MCH 30.6 30.4 MCHC 33.3 32.7 RDW 21.1 H 21.7 H Plt Count 102 L D 49 L D MPV 8.2 8.9 03/04/18 03/05/18 03:50 05:10 WBC 6.5 3.0 L RBC 2.60 L 2.46 L Hgb 7.9 L 7.5 L Hct 24.2 L 22.9 L MCV 93.1 93.2 MCH 30.4 30.4 MCHC 32.6 32.6 RDW 22.6 H 22.1 H Plt Count 47 L 34 L MPV 9.5 10.0 Lab - Chemistry Results 03/01/18 03/01/18 03/02/18 15:00 16:19 04:45 Sodium 146 H Potassium 3.3 L D Chloride 116 H D Carbon Dioxide 15.9 L Anion Gap 14 BUN 12 Creatinine 0.45 L Estimated GFR 141 Random Glucose 72 L Lactic Acid 3.0 H Calcium 6.8 L* Prot Corrected Calcium 7.7 L Phosphorus 2.8 Magnesium 1.7 Total Bilirubin 1.1 H AST 43 H ALT 32 Alkaline Phosphatase 303 H Total Creatine Kinase 35 48 Troponin I 0.09 H 0.12 H Total Protein 5.3 L Albumin 2.3 L TSH 3rd Generation 0.472 Random Cortisol 03/02/18 03/02/18 03/03/18 04:45 04:45 06:21 Sodium 150 H Potassium 2.6 L* Chloride 121 H Carbon Dioxide 13.4 L Anion Gap 16 H BUN 14 Creatinine 0.34 L Estimated GFR 194 Random Glucose 99 Lactic Acid 1.9 Calcium 6.6 L* Prot Corrected Calcium 7.5 L Phosphorus 1.8 L D Magnesium 1.8 Total Bilirubin 1.3 H AST 58 H ALT 40 Alkaline Phosphatase 255 H Total Creatine Kinase Troponin I Total Protein 5.2 L Albumin 1.8 L TSH 3rd Generation Random Cortisol 41.3 03/03/18 03/04/18 03/05/18 18:00 03:50 05:10 Sodium 150 H 149 H Potassium 3.1 L 4.2 D 3.2 L Chloride 124 H 116 H Carbon Dioxide 14.4 L 20.9 L Anion Gap 12 12 BUN 16 14 Creatinine 0.30 L 0.34 L Estimated GFR 225 Greater than 89 Random Glucose 102 183 H Lactic Acid Calcium 6.7 L* 6.3 L* Prot Corrected Calcium 7.8 L 7.4 L* Phosphorus 1.0 L Magnesium 2.7 H Total Bilirubin 1.0 1.0 AST 30 17 ALT 30 14 Alkaline Phosphatase 278 H 237 H Total Creatine Kinase Troponin I 0.03 Total Protein 5.0 L 4.8 L Albumin 1.7 L 1.8 L TSH 3rd Generation Random Cortisol Imaging: Last Impressions Brain MRI 03/03/18 0000 Signed Impressions: CONCLUSION: 1. The previously noted subarachnoid hemorrhage overlying the occipital lobes has resolved. 2. Tiny trace of residual hemorrhage in the posterior lateral ventricles. 3. Stable chronic white matter changes. 4. No new or acute intracranial process. Chest X-Ray 03/01/18 2353 Signed Impressions: CONCLUSION: Left subclavian line in good position. Head CT 03/01/18 1210 Signed Impressions: CONCLUSION: 1. Negative for an acute process CT Angiography 03/01/18 0000 Signed Impressions: CONCLUSION: 1. Negative for central pulmonary emboli. 2. Mild compensated cardiomegaly 3. Minimal consolidative changes left base with air bronchograms. Abdomen/Pelvis CT 03/01/18 0000 Signed Impressions: CONCLUSION: 1. Atelectasis or infiltrate in the posterior lung bases. 2. Air in the urinary bladder. Physical Exam: GENERAL: Sedated, on the vent, NAD SKIN: Cool, no generalized rash HEENT: Head is atraumatic. Pupils reactive to light. No icterus. Oropharynx dry mucosa. NECK: Not fully assessed because the neck collar was not removed. LUNGS: Scattered rhonchi, decreased breath sounds on the left side HEART: Tachycardic ABDOMEN: Mildly distended, has hypoactive bowel sounds, diffusely tender, and patient moaning EXTREMITIES: Cool feet. Has pedal edema on the left side, none on the right NEUROLOGIC: Sedated PSYCH: Unable to assess LINE: NO evidence of infection Assessment and Plan - Plan IMPRESSION: E coli ESBL sepsis with shock Clinical deterioration with increased O2 requirement, likely ARDS - too rapid development of infiltrates for PNA E coli ESBL (+) UTI, recurrent - CT A/P no hydronephrosis - has had problem with retention here Respiratory failure Urinary retention RECOMMENDATIONS: Continue Primaxin Repeat blood culture to document clearing Repeat echo Follow cultures and adjust antibiotics Monitor progress Discussed with RN Spoke with family
[2018-03-05 13:30] LABS: D-Dimer 15.15 mg/L FEU (0.00-0.50)
[2018-03-05] MEDS: Acetaminophen 325 MG Tablet PO PRN (15:57)
[2018-03-05 22:59] LABS: Phosphorus 1.7 mg/dL (2.5-4.9); Potassium 3.3 meq/L (3.5-5.1)
[2018-03-06] MEDS: WATER IV.SIG SCH ×2 (01:09)
[2018-03-06] MEDS: SODIUM ACETATE IV.SIG SCH ×2 (01:09)
[2018-03-06] MEDS: DEXTROSE 5% IV.SIG SCH ×2 (01:09)
[2018-03-06] MEDS: Insulin NovoLIN Regular Correctional Sugar Inj SQ SCH ×4 (01:10→19:17)
[2018-03-06] MEDS: Potassium Phosphate Inj 30 MMOL in Sodium Chlor 0.9% Inj 250 ML IV.SIG PRN (01:15)
[2018-03-06] MEDS: Metoprolol Tartrate 25 MG Tablet PO SCH ×4 (03:50→20:54)
[2018-03-06] MEDS: Levothyroxine 50 MCG Tablet PO SCH (05:03)
[2018-03-06] MEDS: fentaNYL 10 mcg/mL Premix Drip 2,500 MCG/250 ML BAG IV.SIG PRN (05:11)
[2018-03-06 06:09] LABS: Mean Corpuscular HGB Conc 33.2 % (32.0-36.0); Mean Corpuscular Hemoglobin 30.3 pg (27.0-34.0); Mean Corpuscular Volume 91.4 fL (80.0-100.0); Mean Platelet Volume 9.7 fL (7.0-11.0); Platelet Count 28 th/mm3 (150-450); Red Blood Count 2.22 mil/mm3 (4.00-5.30); White Blood Count 2.4 th/mm3 (4.0-11.0)
[2018-03-06 06:22] LABS: Hematocrit 20.3 % (35.0-46.0); Hemoglobin 6.7 gm/dL (11.6-15.3)
[2018-03-06 06:37] LABS: Alanine Aminotransferase 15 U/L (10-53); Albumin 1.5 g/dL (3.4-5.0); Alkaline Phosphatase 257 U/L (45-117); Anion Gap 9 meq/L (5-15); Aspartate Aminotransferase 26 U/L (15-37); Blood Urea Nitrogen 12 mg/dL (7-18); Calcium 6.2 mg/dL (8.5-10.1); Carbon Dioxide 22.8 meq/L (21.0-32.0); Chloride 111 meq/L (98-107); Glomerular Filtration Rate Greater Than 89 mL/min (>89); Glucose,Random 152 mg/dL (74-106); Potassium 3.7 meq/L (3.5-5.1); Sodium 143 meq/L (136-145); Total Protein 4.4 g/dL (6.4-8.2)
--- NOTE | 2018-03-06 07:28 | P.PNCC ---
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 she was sent to [facility] for procedural management of these. She was then transferred to [facility] on 02/28. Please see the dictated hospitalist consult note on 02/28 on admission to [facility] for a detailed record of the hospital course while at [facility]. Today, she was found to be very tachycardic in the 160s and hypotensive with sbp in the 70s. She was emergently transferred to the ICU after rapid response was called for evaluation and management of her hypotension. Of note, she did not have iv access. I met her on arrival to the ICU. I placed 2 18g piv. 12-lead EKG confirms sinus tachycardia. I due to the fast rate, I gave 6mg adenosine to slow it down diagnostically, and it slowed down temporarily to a HR in the 70s, confirming sinus rhythm. I performed bedside critical care echocardiography which demonstrates grossly preserve biventricular function. in particular, RV is decompressed and well-functioning. IVC is completely collapsable. no pericardial effusion. I gave her 3L NS bolus ivf which improved her SBP to 110s and decreased her HR to 110s. She is afebrile. stat CBC shows anemia (history of recent femoral artery pseudoaneurysm), CMP demonstrates elevated AST and Alk phos, elevated lactate at 3.7. Cr elevated above baseline. Patient denies any complaints to me. she is mostly fijian speaking, but communicates in basic mohawk. specifically denies chest pain, shortness of breath, fever/chills, nausea, vomiting, abdominal pain, constipation, diarrhea. I discussed with her family, she has been eating and drinking well even up to today. ROS otherwise negative. 03/02 Patient is awake lying in bed in TRAV. On room air oxygen. T:103.2 this morning She was hypotensive overnight initially placed on Neosyn now off pressor with BP 147/67 with MAP 96. 03/03 No events overnight. Seems more awake and alert this morning. T: 100.2 at midnight. BP and HR better ( 119/58 with MAP 83mmHg). On no pressors. BC from 03/01: E.coli ESBL 6/30: clinically improving. slightly tachycardic. on appropriate therapy for her ESBL e. coli. denies complaints. hemodynamically stable. on room air. 03/05: Patient developed worsening respiratory distress yesterday and required endotracheal intubation and was placed on mechanical ventilation. Hypotension overnight for which patient was started on phenylephrine. Developed A. fib with RVR and was started on amiodarone gtt. 03/06 Patient remains sedated and intubated. Tmax 101.6, On Amio drip. Objective Vital Signs / I&O: Vital Signs 03/05/18 07:30 03/05/18 07:45 03/05/18 08:00 Temperature Pulse Rate 82 81 78 Respiratory Rate 0 L 1 L 6 L Blood Pressure 107/72 107/74 111/68 Pulse Oximetry 03/05/18 08:15 03/05/18 08:20 03/05/18 12:00 Temperature 101.6 F H Pulse Rate 78 Respiratory Rate 28 H 28 H Blood Pressure 115/69 Pulse Oximetry 03/05/18 12:17 03/05/18 14:15 03/05/18 14:30 Temperature Pulse Rate 98 H 99 H Respiratory Rate 28 H 28 H 28 H Blood Pressure 101/64 96/63 L Pulse Oximetry 100 100 03/05/18 14:45 03/05/18 15:00 03/05/18 15:15 Temperature Pulse Rate 100 H 100 H 100 H Respiratory Rate 28 H 28 H 28 H Blood Pressure 95/63 L 96/62 L 100/65 Pulse Oximetry 100 100 100 03/05/18 15:30 03/05/18 15:45 03/05/18 16:00 Temperature 99.3 F Pulse Rate 99 H 97 H 97 H Respiratory Rate 28 H 28 H 18 Blood Pressure 99/64 L 102/66 105/70 Pulse Oximetry 100 100 100 03/05/18 16:11 03/05/18 16:15 03/05/18 16:30 Temperature Pulse Rate 94 H 93 H 93 H Respiratory Rate 28 H 17 9 L Blood Pressure 102/69 98/62 L Pulse Oximetry 100 100 03/05/18 16:45 03/05/18 17:00 03/05/18 17:15 Temperature Pulse Rate 96 H 96 H 94 H Respiratory Rate 13 14 28 H Blood Pressure 87/59 L 83/54 L 82/55 L Pulse Oximetry 100 100 100 03/05/18 17:30 03/05/18 17:45 03/05/18 18:00 Temperature Pulse Rate 93 H 92 H 90 Respiratory Rate 28 H 28 H 28 H Blood Pressure 92/58 L 98/65 L 97/64 L Pulse Oximetry 100 100 100 03/05/18 18:15 03/05/18 18:30 03/05/18 18:45 Temperature Pulse Rate 90 89 89 Respiratory Rate 28 H 28 H 24 Blood Pressure 100/65 99/65 L 102/67 Pulse Oximetry 100 100 100 03/05/18 19:00 03/05/18 19:15 03/05/18 19:21 Temperature Pulse Rate 86 85 86 Respiratory Rate 28 H 28 H 28 H Blood Pressure 104/70 107/71 Pulse Oximetry 100 100 100 03/05/18 19:30 03/05/18 19:45 03/05/18 20:00 Temperature 98.8 F Pulse Rate 85 86 88 Respiratory Rate 28 H 28 H 18 Blood Pressure 109/71 108/71 109/64 Pulse Oximetry 100 100 100 03/05/18 20:15 03/05/18 20:30 03/05/18 20:45 Temperature Pulse Rate 88 87 85 Respiratory Rate 28 H 28 H 28 H Blood Pressure 109/69 111/70 112/73 Pulse Oximetry 100 100 100 03/05/18 21:00 03/05/18 21:15 03/05/18 21:30 Temperature Pulse Rate 85 87 85 Respiratory Rate 28 H 28 H 28 H Blood Pressure 110/72 112/72 117/77 Pulse Oximetry 100 100 100 03/05/18 21:45 03/05/18 22:00 03/05/18 22:15 Temperature Pulse Rate 84 84 85 Respiratory Rate 28 H 23 24 Blood Pressure 119/75 118/77 118/76 Pulse Oximetry 100 100 100 03/05/18 22:30 03/05/18 22:45 03/05/18 23:00 Temperature Pulse Rate 91 H 90 95 H Respiratory Rate 28 H 28 H 28 H Blood Pressure 120/81 126/83 126/80 Pulse Oximetry 100 100 100 03/05/18 23:15 03/05/18 23:30 03/05/18 23:45 Temperature Pulse Rate 95 H 96 H 95 H Respiratory Rate 28 H 28 H 28 H Blood Pressure 128/76 123/76 121/75 Pulse Oximetry 100 100 03/06/18 00:00 03/06/18 00:03 03/06/18 00:15 Temperature 99.2 F Pulse Rate 93 H 93 H Respiratory Rate 28 H 28 H 28 H Blood Pressure 121/73 122/71 Pulse Oximetry 100 100 100 03/06/18 00:30 03/06/18 00:45 03/06/18 01:00 Temperature Pulse Rate 93 H 95 H 93 H Respiratory Rate 28 H 28 H 28 H Blood Pressure 126/74 121/77 122/78 Pulse Oximetry 100 100 100 03/06/18 01:15 03/06/18 01:30 03/06/18 01:45 Temperature Pulse Rate 92 H 92 H 93 H Respiratory Rate 28 H 28 H 0 L Blood Pressure 124/79 128/79 120/76 Pulse Oximetry 100 100 100 03/06/18 02:00 03/06/18 02:15 03/06/18 02:30 Temperature Pulse Rate 92 H 92 H 90 Respiratory Rate 0 L 0 L 0 L Blood Pressure 117/73 111/73 112/75 Pulse Oximetry 100 100 100 03/06/18 02:45 03/06/18 03:00 03/06/18 03:15 Temperature Pulse Rate 91 H 88 91 H Respiratory Rate 2 L 1 L 12 Blood Pressure 111/74 108/69 107/73 Pulse Oximetry 100 100 100 03/06/18 03:30 03/06/18 03:37 03/06/18 04:00 Temperature 99.4 F Pulse Rate 88 86 85 Respiratory Rate 8 L 28 H 28 H Blood Pressure 116/84 109/71 Pulse Oximetry 100 100 03/06/18 05:00 Temperature 99.5 F Pulse Rate 101 H Respiratory Rate 28 H Blood Pressure 84/55 L Pulse Oximetry Intake & Output 03/05/18 03/06/18 03/06/18 18:59 06:59 18:59 Intake Total 1460 / 1460 1460 / 1460 Output Total 300 / 300 300 / 300 Balance 1160 / 1160 1160 / 1160 Intake: IV 1460 / 1460 1460 / 1460 Cordarone Inj 450 MG In D5W Inj 250 / 250 241 ML @ 1 MG/MIN 33.33 mls/hr IV.CONT .Q7H31M [facility] Rx#: [id number] Primaxin Inj 500 MG In NS Inj 200 / 200 200 / 200 100 ML @ 200 mls/hr IV.SIG Q6H [facility] Rx#:[id number] Potassium Phosphate Inj 30 MMOL 260 / 260 In NS Inj 250 ML @ 42 mls/hr IV.SIG UNSCH PRN Rx#:[id number] Sodium Acetate Inj 40 MEQ In 1010 / 1010 1000 / 1000 D5W Inj 1,000 ML @ 75 mls/hr IV .SIG .[id number] [facility] Rx#:[id number] Output: Urine Amount (Catheter) 300 / 300 300 / 300 Straight 300 / 300 300 / 300 Result Diagrams: 03/06/18 05:28 03/06/18 05:28 Objective Remarks: GENERAL: Patient is 62 yo intubated and sedated SKIN: Warm and dry. HEAD: Normocephalic. EYES: No scleral icterus. No injection or drainage. NECK: Supple, trachea midline. No JVD or lymphadenopathy. CARDIOVASCULAR: Regular rate and rhythm without murmurs, gallops, or rubs. RESPIRATORY: Breath sounds equal bilaterally. No accessory muscle use. GASTROINTESTINAL: Abdomen soft, non-tender, nondistended. MUSCULOSKELETAL: No cyanosis, or edema. Neuro: Intubated, sedated Assessment and Plan - Assessment and Plan Plan: A/P Assessment and Plan Plan by system Neuro: On Fentanyl infusion for sedation., daily sedation medication. CT brain: Negative or acute process MRI brain: previously noted subarachnoid hemorrhage overlying the occipital lobes has resolved. Tiny trace of residual hemorrhage in the posterior lateral ventricles. Stable chronic white matter changes. No new or acute intracranial process. Pulm: ARDS Continue vent support keep sats >92% Bronchodilators, ICU vent bundle. CTA chest: No PE, minimal consolidative changes left base CV: A. fib Hypotension Monitor HR and BP keep MAP>65mmHg. d/c Amiodarone gtt. Pravachol 20mg daily -Elevated troponin, type II demand ischemia NSTEMI -IVF switch to 1/2 sodium acetate @ 75cc/hr - Lactic acid cleared 1.9 - Echo 01/30 EF 50-55% -will not anticoagulate at this time given risk/benefit with recent head bleed Cortisol level: 41 Cards is following : Urinary retention Monitor renal function, electrolytes replacement per protocol. d/c IVF GI: Elevated AST, Alk phos Monitor LFT's, CT abd/pelvis without evidence of overt acute cholecystitis Start tube feeds- Glucerna 1.5with goal rate 45ml/hr ID: Gram negative bacteremia Urinary tract infection Septic shock Continue with abx per ID ( Imipenem) ,Monitor for signs of infections ( Fever, WBC) Follow up on cxs 03/01 BC: E.coli ESBL 03/01 Urine cx: GNR Heme: Anemia -Monitor CBC, transfuse 2u PRBC Sacral decubitus - present on admission - does not appear grossly infected - likely not the source of infection - management per wound care nurse Endo: SSI if needed for glycemic control On Synthroid 50mcg daily,. TSH: 0.47 GI prophylaxis- On pepcid 20mg BID DVT prophylaxis- SCD, hold Heparin Sq due to recent [employer] bleed in January ( MRI brain 01/29) Lines: left subclavian placed 03/01 Condition remains critical. Time spent on critical care excluding procedures 30 minutes
[2018-03-06] MEDS: Gabapentin 300 MG Capsule PO SCH ×3 (08:09→18:50)
[2018-03-06] MEDS: Famotidine 20 MG Tablet PO SCH ×2 (08:10→20:55)
--- NOTE | 2018-03-06 13:26 | P.PNID ---
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 she was sent to [facility] 01/30 for procedural management of these. Her stay at [facility] was complicated by sepsis, and she had E. coli ESBL positive UTI , but the blood cultures were negative. She was then transferred to [facility] on 02/04. Today, she was found to be very tachycardic in the 160s and hypotensive with sbp in the 70s. She was emergently transferred to the ICU 03/01 , after rapid response was called for evaluation and management of her hypotension. At [facility], she had urine culture from [facility] that has E. coli ESBL positive Notes reviewed On the vent Temps ok On no pressors No new (+) BC Sedated on the vent Profoundly septic, low WBC Chest x-ray with bilateral pulmonary infiltrates Blood culture with E. coli ESBL positive Urine culture with E. coli ESBL positive Creatinine okay CT of the abdomen and pelvis did not show any hydronephrosis Antibiotics: Primaxin Lines: LSC TLC no evidence of infection Past Medical History: Diabetes mellitus, hypertension, hypothyroidism, systemic lupus erythematosus, rheumatoid arthritis, anemia, recent subarachnoid hemorrhage, C6 mass resection, hysterectomy, bladder sling, appendectomy, C4-C7 laminectomy, C4-T1 posterior fusion. Allergies/Adverse Reactions: Allergies codeine Allergy (Intermediate, Verified 01/24/18 17:12) nitroglycerin Adverse Reaction (Severe, Verified 01/25/18 09:14) Nausea/Vomiting Objective Vital Signs 03/05/18 14:15 03/05/18 14:30 03/05/18 14:45 Temperature Pulse Rate 98 H 99 H 100 H Respiratory Rate 28 H 28 H 28 H Blood Pressure 101/64 96/63 L 95/63 L Pulse Oximetry 100 100 100 03/05/18 15:00 03/05/18 15:15 03/05/18 15:30 Temperature Pulse Rate 100 H 100 H 99 H Respiratory Rate 28 H 28 H 28 H Blood Pressure 96/62 L 100/65 99/64 L Pulse Oximetry 100 100 100 03/05/18 15:45 03/05/18 16:00 03/05/18 16:11 Temperature 99.3 F Pulse Rate 97 H 97 H 94 H Respiratory Rate 28 H 18 28 H Blood Pressure 102/66 105/70 Pulse Oximetry 100 100 03/05/18 16:15 03/05/18 16:30 03/05/18 16:45 Temperature Pulse Rate 93 H 93 H 96 H Respiratory Rate 17 9 L 13 Blood Pressure 102/69 98/62 L 87/59 L Pulse Oximetry 100 100 100 03/05/18 17:00 03/05/18 17:15 03/05/18 17:30 Temperature Pulse Rate 96 H 94 H 93 H Respiratory Rate 14 28 H 28 H Blood Pressure 83/54 L 82/55 L 92/58 L Pulse Oximetry 100 100 100 03/05/18 17:45 03/05/18 18:00 03/05/18 18:15 Temperature Pulse Rate 92 H 90 90 Respiratory Rate 28 H 28 H 28 H Blood Pressure 98/65 L 97/64 L 100/65 Pulse Oximetry 100 100 100 03/05/18 18:30 03/05/18 18:45 03/05/18 19:00 Temperature Pulse Rate 89 89 86 Respiratory Rate 28 H 24 28 H Blood Pressure 99/65 L 102/67 104/70 Pulse Oximetry 100 100 100 03/05/18 19:15 03/05/18 19:21 03/05/18 19:30 Temperature Pulse Rate 85 86 85 Respiratory Rate 28 H 28 H 28 H Blood Pressure 107/71 109/71 Pulse Oximetry 100 100 100 03/05/18 19:45 03/05/18 20:00 03/05/18 20:15 Temperature 98.8 F Pulse Rate 86 88 88 Respiratory Rate 28 H 18 28 H Blood Pressure 108/71 109/64 109/69 Pulse Oximetry 100 100 100 03/05/18 20:30 03/05/18 20:45 03/05/18 21:00 Temperature Pulse Rate 87 85 85 Respiratory Rate 28 H 28 H 28 H Blood Pressure 111/70 112/73 110/72 Pulse Oximetry 100 100 100 03/05/18 21:15 03/05/18 21:30 03/05/18 21:45 Temperature Pulse Rate 87 85 84 Respiratory Rate 28 H 28 H 28 H Blood Pressure 112/72 117/77 119/75 Pulse Oximetry 100 100 100 03/05/18 22:00 03/05/18 22:15 03/05/18 22:30 Temperature Pulse Rate 84 85 91 H Respiratory Rate 23 24 28 H Blood Pressure 118/77 118/76 120/81 Pulse Oximetry 100 100 100 03/05/18 22:45 03/05/18 23:00 03/05/18 23:15 Temperature Pulse Rate 90 95 H 95 H Respiratory Rate 28 H 28 H 28 H Blood Pressure 126/83 126/80 128/76 Pulse Oximetry 100 100 100 03/05/18 23:30 03/05/18 23:45 03/06/18 00:00 Temperature 99.2 F Pulse Rate 96 H 95 H 93 H Respiratory Rate 28 H 28 H 28 H Blood Pressure 123/76 121/75 121/73 Pulse Oximetry 100 100 03/06/18 00:03 03/06/18 00:15 03/06/18 00:30 Temperature Pulse Rate 93 H 93 H Respiratory Rate 28 H 28 H 28 H Blood Pressure 122/71 126/74 Pulse Oximetry 100 100 100 03/06/18 00:45 03/06/18 01:00 03/06/18 01:15 Temperature Pulse Rate 95 H 93 H 92 H Respiratory Rate 28 H 28 H 28 H Blood Pressure 121/77 122/78 124/79 Pulse Oximetry 100 100 100 03/06/18 01:30 03/06/18 01:45 03/06/18 02:00 Temperature Pulse Rate 92 H 93 H 92 H Respiratory Rate 28 H 0 L 0 L Blood Pressure 128/79 120/76 117/73 Pulse Oximetry 100 100 100 03/06/18 02:15 03/06/18 02:30 03/06/18 02:45 Temperature Pulse Rate 92 H 90 91 H Respiratory Rate 0 L 0 L 2 L Blood Pressure 111/73 112/75 111/74 Pulse Oximetry 100 100 100 03/06/18 03:00 03/06/18 03:15 03/06/18 03:30 Temperature Pulse Rate 88 91 H 88 Respiratory Rate 1 L 12 8 L Blood Pressure 108/69 107/73 116/84 Pulse Oximetry 100 100 100 03/06/18 03:37 03/06/18 03:45 03/06/18 04:00 Temperature 99.4 F Pulse Rate 86 87 85 Respiratory Rate 28 H 6 L 0 L Blood Pressure 110/73 109/71 Pulse Oximetry 100 100 100 03/06/18 04:15 03/06/18 04:30 03/06/18 04:45 Temperature Pulse Rate 104 H 89 94 H Respiratory Rate 10 L 33 H 28 H Blood Pressure 116/77 109/58 L 98/55 L Pulse Oximetry 100 99 100 03/06/18 05:00 03/06/18 05:15 03/06/18 05:30 Temperature 99.5 F Pulse Rate 101 H 96 H 96 H Respiratory Rate 7 L 28 H 28 H Blood Pressure 84/55 L 88/54 L 86/52 L Pulse Oximetry 100 100 100 03/06/18 05:45 03/06/18 06:00 03/06/18 06:15 Temperature Pulse Rate 96 H 98 H 94 H Respiratory Rate 28 H 28 H 28 H Blood Pressure 83/53 L 83/56 L 86/56 L Pulse Oximetry 100 100 100 03/06/18 06:30 03/06/18 06:45 03/06/18 07:00 Temperature Pulse Rate 93 H 89 87 Respiratory Rate 28 H 28 H 28 H Blood Pressure 83/56 L 87/60 L 85/56 L Pulse Oximetry 100 100 100 03/06/18 07:20 03/06/18 07:30 03/06/18 08:00 Temperature 98.4 F Pulse Rate 88 88 84 Respiratory Rate 28 H 28 H 28 H Blood Pressure 87/58 L 90/61 L 90/60 L Pulse Oximetry 100 100 100 03/06/18 08:41 03/06/18 09:00 03/06/18 09:39 Temperature 98.4 F 97.7 F Pulse Rate 86 86 85 Respiratory Rate 28 H 28 H 28 H Blood Pressure 90/60 L 96/57 L Pulse Oximetry 100 100 100 03/06/18 09:59 03/06/18 11:00 03/06/18 12:00 Temperature 98.3 F 97.7 F Pulse Rate 84 87 87 Respiratory Rate 28 H 28 H Blood Pressure 96/61 L 97/61 L 97/61 L Pulse Oximetry 100 100 03/06/18 13:01 03/06/18 13:02 Temperature 98.7 F Pulse Rate 85 Respiratory Rate 28 H 28 H Blood Pressure 101/62 Pulse Oximetry 100 100 Intake & Output 03/05/18 03/06/18 03/06/18 18:59 06:59 18:59 Intake Total 1460 / 1460 1520 / 1520 1699 / 1699 Output Total 300 / 300 475 / 475 Balance 1160 / 1160 1045 / 1045 1699 / 1699 Intake: IV 1460 / 1460 1460 / 1460 899 / 899 Cordarone Inj 450 MG In D5W Inj 250 / 250 241 ML @ 1 MG/MIN 33.33 mls/hr IV.CONT .Q7H31M [facility] Rx#: [id number] Primaxin Inj 500 MG In NS Inj 200 / 200 200 / 200 441 / 441 100 ML @ 200 mls/hr IV.SIG Q6H [facility] Rx#:[id number] Potassium Phosphate Inj 30 MMOL 260 / 260 256 / 256 In NS Inj 250 ML @ 42 mls/hr IV.SIG UNSCH PRN Rx#:[id number] Sodium Acetate Inj 40 MEQ In 1010 / 1010 1000 / 1000 D5W Inj 1,000 ML @ 75 mls/hr IV .SIG .[id number] [facility] Rx#:[id number] fentaNYL 10 mcg/mL Premix Drip 202 / 202 2,500 mcg In 250 ml @ 50 MCG/HR 5 mls/hr IV.SIG TITRATE PRN Rx #:[id number] Tube Irrigant 60 / 60 Other 400 / 400 Rbc As-3 Leukoreduced Unit 400 / 400 [id number] Intake (Blood Product) Amt 400 / 400 Rbc As-3 Leukoreduced Unit 400 / 400 [id number] Output: Urine Amount (Catheter) 300 / 300 475 / 475 Straight 300 / 300 475 / 475 Other: Date of Last Bowel Movement 03/06/18 03/05/18 15:33 Blood - Peripheral Aerobic Blood Culture - Preliminary No growth in 1 day 03/05/18 15:33 Blood - Peripheral Anaerobic Blood Culture - Preliminary No growth in 1 day 03/05/18 12:55 Blood - Peripheral Aerobic Blood Culture - Preliminary No growth in 1 day 03/05/18 12:55 Blood - Peripheral Anaerobic Blood Culture - Preliminary No growth in 1 day 03/06/18 05:12 Blood - Peripheral Aerobic Blood Culture - Pending 03/06/18 05:12 Blood - Peripheral Anaerobic Blood Culture - Pending Lab - Hematology Results 03/01/18 03/02/18 03/03/18 14:00 04:45 06:21 WBC 7.1 9.7 RBC 2.72 L 2.62 L Hgb 9.8 L 8.3 L 8.0 L Hct 30.1 L 25.0 L 24.4 L MCV 91.8 92.9 MCH 30.6 30.4 MCHC 33.3 32.7 RDW 21.1 H 21.7 H Plt Count 102 L D 49 L D MPV 8.2 8.9 03/04/18 03/05/18 03/06/18 03:50 05:10 05:28 WBC 6.5 3.0 L 2.4 L RBC 2.60 L 2.46 L 2.22 L Hgb 7.9 L 7.5 L 6.7 L* Hct 24.2 L 22.9 L 20.3 L* MCV 93.1 93.2 91.4 MCH 30.4 30.4 30.3 MCHC 32.6 32.6 33.2 RDW 22.6 H 22.1 H 21.0 H Plt Count 47 L 34 L 28 L MPV 9.5 10.0 9.7 Lab - Chemistry Results 03/01/18 03/01/18 03/02/18 15:00 16:19 04:45 Sodium 146 H Potassium 3.3 L D Chloride 116 H D Carbon Dioxide 15.9 L Anion Gap 14 BUN 12 Creatinine 0.45 L Estimated GFR 141 POC Glucose Random Glucose 72 L Lactic Acid 3.0 H Calcium 6.8 L* Prot Corrected Calcium 7.7 L Phosphorus 2.8 Magnesium 1.7 Total Bilirubin 1.1 H AST 43 H ALT 32 Alkaline Phosphatase 303 H Total Creatine Kinase 35 48 Troponin I 0.09 H 0.12 H Total Protein 5.3 L Albumin 2.3 L TSH 3rd Generation 0.472 Random Cortisol 03/02/18 03/02/18 03/03/18 04:45 04:45 06:21 Sodium 150 H Potassium 2.6 L* Chloride 121 H Carbon Dioxide 13.4 L Anion Gap 16 H BUN 14 Creatinine 0.34 L Estimated GFR 194 POC Glucose Random Glucose 99 Lactic Acid 1.9 Calcium 6.6 L* Prot Corrected Calcium 7.5 L Phosphorus 1.8 L D Magnesium 1.8 Total Bilirubin 1.3 H AST 58 H ALT 40 Alkaline Phosphatase 255 H Total Creatine Kinase Troponin I Total Protein 5.2 L Albumin 1.8 L TSH 3rd Generation Random Cortisol 41.3 03/03/18 03/04/18 03/05/18 18:00 03:50 05:10 Sodium 150 H 149 H Potassium 3.1 L 4.2 D 3.2 L Chloride 124 H 116 H Carbon Dioxide 14.4 L 20.9 L Anion Gap 12 12 BUN 16 14 Creatinine 0.30 L 0.34 L Estimated GFR 225 Greater than 89 POC Glucose Random Glucose 102 183 H Lactic Acid Calcium 6.7 L* 6.3 L* Prot Corrected Calcium 7.8 L 7.4 L* Phosphorus 1.0 L Magnesium 2.7 H Total Bilirubin 1.0 1.0 AST 30 17 ALT 30 14 Alkaline Phosphatase 278 H 237 H Total Creatine Kinase Troponin I 0.03 Total Protein 5.0 L 4.8 L Albumin 1.7 L 1.8 L TSH 3rd Generation Random Cortisol 03/05/18 03/05/18 03/05/18 11:51 18:37 21:55 Sodium Potassium 3.3 L Chloride Carbon Dioxide Anion Gap BUN Creatinine Estimated GFR POC Glucose 125 H 126 H Random Glucose Lactic Acid Calcium Prot Corrected Calcium Phosphorus 1.7 L Magnesium Total Bilirubin AST ALT Alkaline Phosphatase Total Creatine Kinase Troponin I Total Protein Albumin TSH 3rd Generation Random Cortisol 03/06/18 03/06/18 03/06/18 01:06 04:55 05:28 Sodium 143 Potassium 3.7 Chloride 111 H Carbon Dioxide 22.8 Anion Gap 9 BUN 12 Creatinine 0.28 L Estimated GFR Greater than 89 POC Glucose 133 H 142 H Random Glucose 152 H Lactic Acid Calcium 6.2 L* Prot Corrected Calcium 7.5 L Phosphorus Magnesium Total Bilirubin 1.1 H AST 26 ALT 15 Alkaline Phosphatase 257 H Total Creatine Kinase Troponin I Total Protein 4.4 L Albumin 1.5 L TSH 3rd Generation Random Cortisol 03/06/18 08:06 Sodium Potassium Chloride Carbon Dioxide Anion Gap BUN Creatinine Estimated GFR POC Glucose 126 H Random Glucose Lactic Acid Calcium Prot Corrected Calcium Phosphorus Magnesium Total Bilirubin AST ALT Alkaline Phosphatase Total Creatine Kinase Troponin I Total Protein Albumin TSH 3rd Generation Random Cortisol Physical Exam: GENERAL: Sedated, on the vent, NAD SKIN: Cool, no generalized rash HEENT: Head is atraumatic. Pupils reactive to light. No icterus. Oropharynx dry mucosa. NECK: Not fully assessed because the neck collar was not removed. LUNGS: Scattered rhonchi, decreased breath sounds on the left side HEART: Tachycardic ABDOMEN: Mildly distended, has hypoactive bowel sounds, diffusely tender, and patient moaning EXTREMITIES: Cool feet. Has pedal edema on the left side, none on the right NEUROLOGIC: SEdated PSYCH: Unable to assess LINE: NO evidence of infection Assessment and Plan - Plan IMPRESSION: E coli ESBL sepsis with shock Clinical deterioration with increased O2 requirement, likely ARDS - too rapid development of infiltrates for PNA E coli ESBL (+) UTI, recurrent - CT A/P no hydronephrosis - has had problem with retention here Respiratory failure Urinary retention Leukopenia due to profound sepsis RECOMMENDATIONS: Continue Primaxin Repeat blood culture to document clearing Repeat echo Follow cultures and adjust antibiotics Monitor progress
--- NOTE | 2018-03-06 14:49 | ECHRPT ---
Indication: SEPSIS CONCLUSIONS Mildly dilated left ventricle. Wall thickness is measured at the upper limits of normal. The left ventricular systolic function is low normal with an estimated ejection fraction in the rang e of 50- 55%. No regional wall motion abnormalities are present. Diffuse calcification of the aortic valve. The pulmonary valve is not well visualized. BP: / HR: Rhythm: Sinus MEASUREMENTS (Male / Female) Normal Values Technical Quality:Technically difficult study 2D ECHO LV Diastolic Diameter PLAX 3.8 cm 4.2 - 5.9 / 3.9 - 5.3 cm LV Systolic Diameter PLAX 2.9 cm IVS Diastolic Thickness 1.0 cm 0.6 - 1.0 / 0.6 - 0.9 cm LVPW Diastolic Thickness 0.9 cm 0.6 - 1.0 / 0.6 - 0.9 cm LV Relative Wall Thickness 0.5 LVOT Diameter 1.6 cm LA Systolic Diameter LX 3.0 cm 3.0 - 4.0 / 2.7 - 3.8 cm LV Ejection Fraction MOD 4C 41.7 % LV Ejection Fraction 4C AL 42.7 % M-MODE Aortic Root Diameter MM 2.0 cm AV Cusp Separation MM 1.1 cm DOPPLER AV Peak Velocity 155.0 cm/s AV Peak Gradient 9.6 mmHg LVOT Peak Velocity 81.9 cm/s LVOT Peak Gradient 2.7 mmHg AV Area Cont Eq pk 1.1 cm MV Area PHT 5.4 cm Mitral E Point Velocity 71.1 cm/s Mitral A Point Velocity 55.3 cm/s Mitral E to A Ratio 1.3 LV E' Lateral Velocity 5.5 cm/s Mitral E to LV E' Lateral Ratio 13.0 LV E' Septal Velocity 3.9 cm/s Mitral E to LV E' Septal Ratio 18.2 PV Peak Velocity 73.3 cm/s PV Peak Gradient 2.1 mmHg FINDINGS LEFT VENTRICLE Mildly dilated left ventricle. Wall thickness is measured at the upper limits of normal. The left ventricular systolic function is low normal with an estimated ejection fraction in the rang e of 50- 55%. No regional wall motion abnormalities are present. RIGHT VENTRICLE Normal right ventricular size and systolic function. LEFT ATRIUM The left atrial size is normal. RIGHT ATRIUM The right atrial size is normal. ATRIAL SEPTUM Normal atrial septal thickness without atrial level shunting by limited color doppler interrogation. AORTA The aortic root and proximal ascending aorta are normal in size on limited imaging. MITRAL VALVE Structurally normal mitral valve. No mitral valve stenosis or regurgitation. AORTIC VALVE Trileaflet aortic valve. Diffuse calcification of the aortic valve. TRICUSPID VALVE Structurally normal tricuspid valve. No tricuspid valve stenosis or regurgitation. PULMONARY VALVE The pulmonary valve is not well visualized. VESSELS The inferior vena cava is normal in size. PERICARDIUM No pericardial effusion. Jorge Butt MD, FACC (Electronically Signed) Final Date:06 March 2018 14:48
[2018-03-06 18:45] LABS: Hematocrit 30.6 % (35.0-46.0); Hemoglobin 10.4 gm/dL (11.6-15.3)
[2018-03-06] MEDS: Sodium Chloride 0.45 % Inj 1,000 ML IV.CONT SCH (18:46)
[2018-03-07] MEDS: Insulin NovoLIN Regular Correctional Sugar Inj SQ SCH ×5 (00:16→23:51)
[2018-03-07] MEDS: Metoprolol Tartrate 25 MG Tablet PO SCH (03:16)
--- NOTE | 2018-03-07 04:59 | XR ---
EXAM DATE: 03/07/2018 4:28 AM EDT AGE/SEX: 62 years / Female INDICATIONS: Short of breath. CLINICAL DATA: This is the patient's subsequent encounter. Patient reports that signs and symptoms h ave been present for 2 weeks and indicates a pain score of 0/10. MEDICAL/SURGICAL HISTORY: Diabetes mellitus type II. Hypertension. Fusion, cervical. [place] [facility] [place]. . FINDINGS: Interval resolution of the airspace infiltrates in the middle and peripheral one third of the right l paxton. Mild residual patchy airspace opacities in left upper lung. There is persistent lobar consolidat ion left lower lung with loss of delineation of the left hemidiaphragm and meniscal interface lateral ly suggesting associated effusion. The heart is normal size. ET tube tip well above the raz. Gastr ic tube traverses the [id number]. Left subclavian catheter tip projects at the cavoatrial junction . CONCLUSION: 1. Persistent left lower lobe consolidation and pleural effusion. 2. Interval resolution of diffuse infiltrates in the right lung and reduction in the infiltrates in the left upper lung. Electronically signed by: Renny Zamora MD 03/07/2018 4:58 AM EDT
[2018-03-07 05:09] LABS: Baso % (Auto) 0.2 % (0.0-2.0); Eos % (Auto) 0.1 % (0.0-4.0); Hematocrit 30.8 % (35.0-46.0); Hemoglobin 10.7 gm/dL (11.6-15.3); Lymph # (Auto) 0.3 th/mm3 (1.0-4.8); Lymph % (Auto) 6.9 % (9.0-44.0); Mean Corpuscular HGB Conc 34.6 % (32.0-36.0); Mean Corpuscular Hemoglobin 31.6 pg (27.0-34.0); Mean Corpuscular Volume 91.3 fL (80.0-100.0); Mean Platelet Volume 10.5 fL (7.0-11.0); Mono # (Auto) 0.1 th/mm3 (0.0-0.9); Mono % (Auto) 2.2 % (0.0-8.0); Neut # (Auto) 4.1 th/mm3 (1.8-7.7); Neut % (Auto) 90.6 % (16.0-70.0); Platelet Count 34 th/mm3 (150-450); Red Blood Count 3.38 mil/mm3 (4.00-5.30); Red Cell Distribution Width 17.9 % (11.6-17.2); White Blood Count 4.5 th/mm3 (4.0-11.0)
[2018-03-07] MEDS: Levothyroxine 50 MCG Tablet PO SCH (05:22)
[2018-03-07 05:31] LABS: Alanine Aminotransferase 14 U/L (10-53); Albumin 1.5 g/dL (3.4-5.0); Alkaline Phosphatase 247 U/L (45-117); Anion Gap 10 meq/L (5-15); Aspartate Aminotransferase 31 U/L (15-37); Blood Urea Nitrogen 11 mg/dL (7-18); Calcium 6.3 mg/dL (8.5-10.1); Carbon Dioxide 21.2 meq/L (21.0-32.0); Chloride 111 meq/L (98-107); Glomerular Filtration Rate Greater Than 89 mL/min (>89); Glucose,Random 112 mg/dL (74-106); Magnesium 1.6 mg/dL (1.5-2.5); Phosphorus 1.9 mg/dL (2.5-4.9); Potassium 3.2 meq/L (3.5-5.1); Sodium 142 meq/L (136-145); Total Protein 4.5 g/dL (6.4-8.2)
[2018-03-07] MEDS ORDERED: Magnesium Oxide 400 MG Tablet PO PRN (06:54)
[2018-03-07] MEDS ORDERED: Potassium Chlor 40 mEq Premix 40 MEQ/100 ML PIGGYBACK IV.SIG PRN (06:54)
[2018-03-07] MEDS ORDERED: Potassium Chloride 25 MEQ Effervescent Tablet PO PRN (06:54)
[2018-03-07] MEDS ORDERED: Potassium Phosphate 500 MG Soluble Tablet PO PRN ×2 (06:54)
[2018-03-07] MEDS ORDERED: Potassium Chlor 20 mEq Premix 20 MEQ/100 ML PIGGYBACK IV.SIG PRN (06:54)
[2018-03-07] MEDS ORDERED: Magnesium Sulfate Inj 4 GM in Sodium Chlor 0.9% Inj 92 ML IV.SIG PRN (06:54)
[2018-03-07] MEDS ORDERED: Sodium Phosphate Inj 30 MMOL in Sodium Chlor 0.9% Inj 250 ML IV.SIG PRN (06:54)
--- NOTE | 2018-03-07 06:59 | P.PNCC ---
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 she was sent to [facility] for procedural management of these. She was then transferred to [facility] on 02/28. Please see the dictated hospitalist consult note on 02/28 on admission to [facility] for a detailed record of the hospital course while at [facility]. Today, she was found to be very tachycardic in the 160s and hypotensive with sbp in the 70s. She was emergently transferred to the ICU after rapid response was called for evaluation and management of her hypotension. Of note, she did not have iv access. I met her on arrival to the ICU. I placed 2 18g piv. 12-lead EKG confirms sinus tachycardia. I due to the fast rate, I gave 6mg adenosine to slow it down diagnostically, and it slowed down temporarily to a HR in the 70s, confirming sinus rhythm. I performed bedside critical care echocardiography which demonstrates grossly preserve biventricular function. in particular, RV is decompressed and well-functioning. IVC is completely collapsable. no pericardial effusion. I gave her 3L NS bolus ivf which improved her SBP to 110s and decreased her HR to 110s. She is afebrile. stat CBC shows anemia (history of recent femoral artery pseudoaneurysm), CMP demonstrates elevated AST and Alk phos, elevated lactate at 3.7. Cr elevated above baseline. Patient denies any complaints to me. she is mostly costa rican speaking, but communicates in basic mongolian. specifically denies chest pain, shortness of breath, fever/chills, nausea, vomiting, abdominal pain, constipation, diarrhea. I discussed with her family, she has been eating and drinking well even up to today. ROS otherwise negative. 03/02 Patient is awake lying in bed in TRAV. On room air oxygen. T:103.2 this morning She was hypotensive overnight initially placed on Neosyn now off pressor with BP 147/67 with MAP 96. 03/03 No events overnight. Seems more awake and alert this morning. T: 100.2 at midnight. BP and HR better ( 119/58 with MAP 83mmHg). On no pressors. BC from 03/01: E.coli ESBL 6/30: clinically improving. slightly tachycardic. on appropriate therapy for her ESBL e. coli. denies complaints. hemodynamically stable. on room air. 03/05: Patient developed worsening respiratory distress yesterday and required endotracheal intubation and was placed on mechanical ventilation. Hypotension overnight for which patient was started on phenylephrine. Developed A. fib with RVR and was started on amiodarone gtt. 03/06 Patient remains sedated and intubated. Tmax 101.6, On Amio drip. 03/07 Patient remains intubated off sedation. s/p transfusion 2u PRBC yesterday. Tolerating tube feeds. Afebrile. Off Amio drip. Objective Vital Signs / I&O: Vital Signs 03/06/18 07:00 03/06/18 07:20 03/06/18 07:30 Temperature Pulse Rate 87 88 88 Respiratory Rate 28 H 28 H 28 H Blood Pressure 85/56 L 87/58 L 90/61 L Pulse Oximetry 100 100 100 03/06/18 08:00 03/06/18 08:41 03/06/18 09:00 Temperature 98.4 F 98.4 F Pulse Rate 84 86 86 Respiratory Rate 28 H 28 H 28 H Blood Pressure 90/60 L 90/60 L Pulse Oximetry 100 100 100 03/06/18 09:39 03/06/18 09:59 03/06/18 11:00 Temperature 97.7 F 98.3 F 97.7 F Pulse Rate 85 84 87 Respiratory Rate 28 H 28 H 28 H Blood Pressure 96/57 L 96/61 L 97/61 L Pulse Oximetry 100 100 100 03/06/18 12:00 03/06/18 13:00 03/06/18 13:01 Temperature 98.4 F 98.4 F 98.7 F Pulse Rate 99 H 98 H 85 Respiratory Rate 28 H 28 H 28 H Blood Pressure 106/66 106/66 101/62 Pulse Oximetry 100 100 100 03/06/18 13:02 03/06/18 14:00 03/06/18 15:00 Temperature 98.9 F 98.9 F Pulse Rate 102 H 100 H Respiratory Rate 28 H 28 H 28 H Blood Pressure 117/75 117/75 Pulse Oximetry 100 100 100 03/06/18 16:00 03/06/18 16:13 03/06/18 16:17 Temperature 98.9 F Pulse Rate 105 H 96 H Respiratory Rate 28 H 28 H 28 H Blood Pressure 118/86 Pulse Oximetry 100 100 03/06/18 17:00 03/06/18 18:00 03/06/18 18:40 Temperature 98.9 F Pulse Rate 100 H 107 H 104 H Respiratory Rate 28 H 28 H 28 H Blood Pressure 118/86 125/61 Pulse Oximetry 100 100 100 03/06/18 18:50 03/06/18 19:00 03/06/18 19:10 Temperature Pulse Rate 101 H 112 H 107 H Respiratory Rate 28 H 28 H 28 H Blood Pressure 128/74 125/61 125/79 Pulse Oximetry 100 100 100 03/06/18 19:20 03/06/18 19:30 03/06/18 19:37 Temperature Pulse Rate 102 H 103 H Respiratory Rate 28 H 28 H 28 H Blood Pressure 129/88 121/74 Pulse Oximetry 100 100 100 03/06/18 19:40 03/06/18 19:50 03/06/18 20:00 Temperature Pulse Rate 104 H 112 H 112 H Respiratory Rate 28 H 28 H 28 H Blood Pressure 124/79 133/78 Pulse Oximetry 100 100 100 03/06/18 20:01 03/06/18 20:10 03/06/18 20:20 Temperature Pulse Rate 110 H 110 H 106 H Respiratory Rate 28 H 28 H 28 H Blood Pressure 144/94 H 118/70 115/70 Pulse Oximetry 100 100 100 03/06/18 20:30 03/06/18 20:40 03/06/18 20:50 Temperature Pulse Rate 115 H 117 H 113 H Respiratory Rate 28 H 28 H 28 H Blood Pressure 118/63 115/59 L 96/64 L Pulse Oximetry 100 100 100 03/06/18 21:00 03/06/18 21:10 03/06/18 21:20 Temperature Pulse Rate 113 H 109 H 96 H Respiratory Rate 28 H 28 H 28 H Blood Pressure 113/73 113/70 108/69 Pulse Oximetry 100 100 100 03/06/18 21:30 03/06/18 21:40 03/06/18 21:50 Temperature Pulse Rate 121 H 91 H 92 H Respiratory Rate 28 H 28 H 28 H Blood Pressure 108/59 L 111/56 L 102/61 Pulse Oximetry 100 100 100 03/06/18 22:00 03/06/18 22:10 03/06/18 22:20 Temperature Pulse Rate 93 H 92 H 90 Respiratory Rate 28 H 28 H 28 H Blood Pressure 105/65 108/69 109/69 Pulse Oximetry 100 100 100 03/06/18 22:30 03/06/18 22:40 03/06/18 23:00 Temperature Pulse Rate 87 88 Respiratory Rate 28 H 28 H 28 H Blood Pressure 103/66 107/69 Pulse Oximetry 100 100 100 03/07/18 00:00 03/07/18 00:40 03/07/18 00:50 Temperature Pulse Rate 88 98 H 96 H Respiratory Rate 28 H 28 H Blood Pressure 107/69 119/80 121/76 Pulse Oximetry 100 100 03/07/18 01:00 03/07/18 01:10 03/07/18 01:20 Temperature Pulse Rate 90 90 92 H Respiratory Rate 28 H 28 H 28 H Blood Pressure 116/76 116/73 120/75 Pulse Oximetry 100 100 100 03/07/18 01:30 03/07/18 01:40 03/07/18 01:50 Temperature Pulse Rate 90 92 H 95 H Respiratory Rate 28 H 28 H 28 H Blood Pressure 120/77 116/73 120/72 Pulse Oximetry 100 100 100 03/07/18 02:00 03/07/18 02:10 03/07/18 02:20 Temperature Pulse Rate 92 H 90 92 H Respiratory Rate 28 H 28 H 28 H Blood Pressure 116/74 123/77 120/73 Pulse Oximetry 100 100 100 03/07/18 02:30 03/07/18 02:40 03/07/18 02:50 Temperature Pulse Rate 94 H 96 H 96 H Respiratory Rate 28 H 28 H 28 H Blood Pressure 117/73 119/71 117/67 Pulse Oximetry 100 100 100 03/07/18 03:00 03/07/18 03:10 03/07/18 03:20 Temperature Pulse Rate 92 H 93 H 90 Respiratory Rate 28 H 28 H 28 H Blood Pressure 117/68 116/70 112/73 Pulse Oximetry 100 100 100 03/07/18 03:30 03/07/18 03:40 03/07/18 03:50 Temperature Pulse Rate 95 H 107 H 98 H Respiratory Rate 28 H 28 H 28 H Blood Pressure 120/75 130/78 119/73 Pulse Oximetry 100 100 100 03/07/18 03:55 03/07/18 04:00 03/07/18 04:05 Temperature 99 F Pulse Rate 96 H 90 Respiratory Rate 28 H 28 H 28 H Blood Pressure 111/64 Pulse Oximetry 100 100 03/07/18 04:10 03/07/18 04:20 03/07/18 04:30 Temperature Pulse Rate 93 H 90 93 H Respiratory Rate 28 H 28 H 28 H Blood Pressure 117/69 123/69 115/66 Pulse Oximetry 100 100 100 03/07/18 04:40 03/07/18 05:00 03/07/18 06:00 Temperature Pulse Rate 90 87 86 Respiratory Rate 28 H 28 H 28 H Blood Pressure 111/64 111/65 104/59 L Pulse Oximetry 100 100 100 Intake & Output 03/06/18 03/06/18 03/07/18 06:59 18:59 06:59 Intake Total 1520 / 1520 3526 / 3526 758 / 758 Output Total 475 / 475 950 / 950 510 / 510 Balance 1045 / 1045 2576 / 2576 248 / 248 Weight 49.5 kg Intake: IV 1460 / 1460 1000 / 1000 300 / 300 Primaxin Inj 500 MG In NS Inj 200 / 200 542 / 542 300 / 300 100 ML @ 200 mls/hr IV.SIG Q6H KARINA Rx#:[id number] Potassium Phosphate Inj 30 MMOL 260 / 260 256 / 256 In NS Inj 250 ML @ 42 mls/hr IV.SIG UNSCH PRN Rx#:[id number] Sodium Acetate Inj 40 MEQ In 1000 / 1000 D5W Inj 1,000 ML @ 75 mls/hr IV .SIG .[id number] KARINA Rx#:[id number] fentaNYL 10 mcg/mL Premix Drip 202 / 202 2,500 mcg In 250 ml @ 50 MCG/HR 5 mls/hr IV.SIG TITRATE PRN Rx #:[id number] Oral 360 / 360 Tube Feeding 86 / 86 238 / 238 Tube Irrigant 60 / 60 120 / 120 120 / 120 Water Bolus Amount 360 / 360 100 / 100 Other 400 / 400 Rbc As-3 Leukoreduced Unit 400 / 400 [id number] Intake (Blood Product) Amt 400 / 400 Rbc As-3 Leukoreduced Unit 400 / 400 [id number] Bladder Irrigation Fluid - 800 / 800 Amount Retained Straight 800 / 800 Output: Urine Amount (Catheter) 475 / 475 950 / 950 510 / 510 Straight 475 / 475 950 / 950 510 / 510 Other: Bladder Irrigation Fluid - Amount Drained Straight 950 Date of Last Bowel Movement 03/06/18 03/06/18 # Bowel Movements 1 # Incontinent Bowel Movements 1 Result Diagrams: 03/07/18 04:05 03/07/18 04:05 Objective Remarks: GENERAL: Patient is 62 yo intubated and sedated SKIN: Warm and dry. HEAD: Normocephalic. EYES: No scleral icterus. No injection or drainage. NECK: Supple, trachea midline. No JVD or lymphadenopathy. CARDIOVASCULAR: Regular rate and rhythm without murmurs, gallops, or rubs. RESPIRATORY: Breath sounds equal bilaterally. No accessory muscle use. GASTROINTESTINAL: Abdomen soft, non-tender, nondistended. MUSCULOSKELETAL: No cyanosis, or edema. Neuro: Intubated, Assessment and Plan - Assessment and Plan Plan: A/P Assessment and Plan Plan by system Neuro: Off sedation. Monitor neuro status CT brain: Negative or acute process MRI brain: previously noted subarachnoid hemorrhage overlying the occipital lobes has resolved. Tiny trace of residual hemorrhage in the posterior lateral ventricles. Stable chronic white matter changes. No new or acute intracranial process. Pulm: ARDS Continue vent support keep sats >92% Bronchodilators, ICU vent bundle. CTA chest: No PE, minimal consolidative changes left base CV: A. fib Monitor HR and BP keep MAP>65mmHg. Pravachol 20mg daily -Elevated troponin, type II demand ischemia NSTEMI d/c IVF - Lactic acid cleared 1.9 - Echo 01/30 EF 50-55% -will not anticoagulate at this time given risk/benefit with recent head bleed Cortisol level: 41 Cards is following : Urinary retention Monitor renal function, electrolytes replacement per protocol. Will need K, Phos replacement today GI: Elevated AST, Alk phos Monitor LFT's, CT abd/pelvis without evidence of overt acute cholecystitis On tube feeds- Glucerna 1.5with goal rate 45ml/hr ID: Gram negative bacteremia Urinary tract infection Septic shock Continue with abx per ID ( Imipenem) ,Monitor for signs of infections ( Fever, WBC) Follow up on cxs 03/05 BC: GNR 03/01 BC: E.coli ESBL 03/01 Urine cx: GNR Heme: Anemia -Monitor CBC, s/p transfuse 2u PRBC 03/06 Sacral decubitus - present on admission - does not appear grossly infected - likely not the source of infection - management per wound care nurse Endo: SSI if needed for glycemic control On Synthroid 50mcg daily,. TSH: 0.47 GI prophylaxis- On pepcid 20mg BID DVT prophylaxis- SCD, hold Heparin Sq due to recent [employer] bleed in January ( MRI brain 01/29) Lines: left subclavian placed 03/01, d/c central , has peripheral IV's Condition remains critical. Time spent on critical care excluding procedures 30 minutes
[2018-03-07 08:52] LABS: Lymphocytes 1 % (9-44); Monocytes 1 % (0-8)
[2018-03-07 08:53] LABS: Ovalocytes 1+
[2018-03-07] MEDS ORDERED: Calcium Chloride Inj 1 GM in Sodium Chlor 0.9% Inj 100 ML IV.SIG ONE (09:00)
[2018-03-07] MEDS: Gabapentin 300 MG Capsule PO SCH ×3 (09:05→19:00)
[2018-03-07] MEDS: Famotidine 20 MG Tablet PO SCH ×2 (09:05→21:13)
[2018-03-07] MEDS: Potassium Phosphate Inj 30 MMOL in Sodium Chlor 0.9% Inj 250 ML IV.SIG PRN (09:06)
[2018-03-07 10:37] LABS: Baso % (Auto) 0.2 % (0.0-2.0); Eos % (Auto) 0.2 % (0.0-4.0); Hematocrit 30.8 % (35.0-46.0); Hemoglobin 10.6 gm/dL (11.6-15.3); Lymph # (Auto) 0.4 th/mm3 (1.0-4.8); Lymph % (Auto) 8.1 % (9.0-44.0); Mean Corpuscular HGB Conc 34.4 % (32.0-36.0); Mean Corpuscular Hemoglobin 31.6 pg (27.0-34.0); Mean Platelet Volume 9.5 fL (7.0-11.0); Mono # (Auto) 0.1 th/mm3 (0.0-0.9); Mono % (Auto) 2.1 % (0.0-8.0); Neut # (Auto) 4.1 th/mm3 (1.8-7.7); Neut % (Auto) 89.4 % (16.0-70.0); Platelet Count 22 th/mm3 (150-450); Red Blood Count 3.35 mil/mm3 (4.00-5.30); Red Cell Distribution Width 18.2 % (11.6-17.2); White Blood Count 4.6 th/mm3 (4.0-11.0)
[2018-03-07 10:50] LABS: Alanine Aminotransferase 14 U/L (10-53); Albumin 1.5 g/dL (3.4-5.0); Alkaline Phosphatase 248 U/L (45-117); Anion Gap 12 meq/L (5-15); Aspartate Aminotransferase 27 U/L (15-37); Blood Urea Nitrogen 11 mg/dL (7-18); Calcium 6.7 mg/dL (8.5-10.1); Carbon Dioxide 19.1 meq/L (21.0-32.0); Chloride 112 meq/L (98-107); Glomerular Filtration Rate Greater Than 89 mL/min (>89); Glucose,Random 106 mg/dL (74-106); Magnesium 1.8 mg/dL (1.5-2.5); Potassium 3.3 meq/L (3.5-5.1); Sodium 143 meq/L (136-145); Total Protein 4.5 g/dL (6.4-8.2)
[2018-03-07 11:42] LABS: Toxic Granulation 1+
[2018-03-07 11:46] LABS: Dohle Bodies Present; Lymphocytes 3 % (9-44); Monocytes 2 % (0-8)
[2018-03-07 11:48] LABS: Ovalocytes 1+
--- NOTE | 2018-03-07 11:52 | P.PNID ---
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 she was sent to [facility] 01/30 for procedural management of these. Her stay at [facility] was complicated by sepsis, and she had E. coli ESBL positive UTI , but the blood cultures were negative. She was then transferred to [place] [facility] on 02/04. Today, she was found to be very tachycardic in the 160s and hypotensive with sbp in the 70s. She was emergently transferred to the ICU 03/01 , after rapid response was called for evaluation and management of her hypotension. At [place], she had urine culture from [facility] that has E. coli ESBL positive Notes reviewed Low grade temps Sedated on the vent WBC better Chest x-ray with bilateral pulmonary infiltrates Blood culture with E. coli ESBL positive Urine culture with E. coli ESBL positive WBC okay Creatinine okay CT of the abdomen and pelvis did not show any hydronephrosis Antibiotics: Primaxin Lines: LSC TLC no evidence of infection Past Medical History: Diabetes mellitus, hypertension, hypothyroidism, systemic lupus erythematosus, rheumatoid arthritis, anemia, recent subarachnoid hemorrhage, C6 mass resection, hysterectomy, bladder sling, appendectomy, C4-C7 laminectomy, C4-T1 posterior fusion. Allergies/Adverse Reactions: Allergies codeine Allergy (Intermediate, Verified 01/24/18 17:12) nitroglycerin Adverse Reaction (Severe, Verified 01/25/18 09:14) Nausea/Vomiting Objective Vital Signs 03/06/18 12:00 03/06/18 13:00 03/06/18 13:01 Temperature 98.4 F 98.4 F 98.7 F Pulse Rate 99 H 98 H 85 Respiratory Rate 28 H 28 H 28 H Blood Pressure 106/66 106/66 101/62 Pulse Oximetry 100 100 100 03/06/18 13:02 03/06/18 14:00 03/06/18 15:00 Temperature 98.9 F 98.9 F Pulse Rate 102 H 100 H Respiratory Rate 28 H 28 H 28 H Blood Pressure 117/75 117/75 Pulse Oximetry 100 100 100 03/06/18 16:00 03/06/18 16:13 03/06/18 16:17 Temperature 98.9 F Pulse Rate 105 H 96 H Respiratory Rate 28 H 28 H 28 H Blood Pressure 118/86 Pulse Oximetry 100 100 03/06/18 17:00 03/06/18 18:00 03/06/18 18:40 Temperature 98.9 F Pulse Rate 100 H 107 H 104 H Respiratory Rate 28 H 28 H 28 H Blood Pressure 118/86 125/61 Pulse Oximetry 100 100 100 03/06/18 18:50 03/06/18 19:00 03/06/18 19:10 Temperature Pulse Rate 101 H 112 H 107 H Respiratory Rate 28 H 28 H 28 H Blood Pressure 128/74 125/61 125/79 Pulse Oximetry 100 100 100 03/06/18 19:20 03/06/18 19:30 03/06/18 19:37 Temperature Pulse Rate 102 H 103 H Respiratory Rate 28 H 28 H 28 H Blood Pressure 129/88 121/74 Pulse Oximetry 100 100 100 03/06/18 19:40 03/06/18 19:50 03/06/18 20:00 Temperature Pulse Rate 104 H 112 H 112 H Respiratory Rate 28 H 28 H 28 H Blood Pressure 124/79 133/78 Pulse Oximetry 100 100 100 03/06/18 20:01 03/06/18 20:10 03/06/18 20:20 Temperature Pulse Rate 110 H 110 H 106 H Respiratory Rate 28 H 28 H 28 H Blood Pressure 144/94 H 118/70 115/70 Pulse Oximetry 100 100 100 03/06/18 20:30 03/06/18 20:40 03/06/18 20:50 Temperature Pulse Rate 115 H 117 H 113 H Respiratory Rate 28 H 28 H 28 H Blood Pressure 118/63 115/59 L 96/64 L Pulse Oximetry 100 100 100 03/06/18 21:00 03/06/18 21:10 03/06/18 21:20 Temperature Pulse Rate 113 H 109 H 96 H Respiratory Rate 28 H 28 H 28 H Blood Pressure 113/73 113/70 108/69 Pulse Oximetry 100 100 100 03/06/18 21:30 03/06/18 21:40 03/06/18 21:50 Temperature Pulse Rate 121 H 91 H 92 H Respiratory Rate 28 H 28 H 28 H Blood Pressure 108/59 L 111/56 L 102/61 Pulse Oximetry 100 100 100 03/06/18 22:00 03/06/18 22:10 03/06/18 22:20 Temperature Pulse Rate 93 H 92 H 90 Respiratory Rate 28 H 28 H 28 H Blood Pressure 105/65 108/69 109/69 Pulse Oximetry 100 100 100 03/06/18 22:30 03/06/18 22:40 03/06/18 23:00 Temperature Pulse Rate 87 88 Respiratory Rate 28 H 28 H 28 H Blood Pressure 103/66 107/69 Pulse Oximetry 100 100 100 03/07/18 00:00 03/07/18 00:40 03/07/18 00:50 Temperature Pulse Rate 88 98 H 96 H Respiratory Rate 28 H 28 H Blood Pressure 107/69 119/80 121/76 Pulse Oximetry 100 100 03/07/18 01:00 03/07/18 01:10 03/07/18 01:20 Temperature Pulse Rate 90 90 92 H Respiratory Rate 28 H 28 H 28 H Blood Pressure 116/76 116/73 120/75 Pulse Oximetry 100 100 100 03/07/18 01:30 03/07/18 01:40 03/07/18 01:50 Temperature Pulse Rate 90 92 H 95 H Respiratory Rate 28 H 28 H 28 H Blood Pressure 120/77 116/73 120/72 Pulse Oximetry 100 100 100 03/07/18 02:00 03/07/18 02:10 03/07/18 02:20 Temperature Pulse Rate 92 H 90 92 H Respiratory Rate 28 H 28 H 28 H Blood Pressure 116/74 123/77 120/73 Pulse Oximetry 100 100 100 03/07/18 02:30 03/07/18 02:40 03/07/18 02:50 Temperature Pulse Rate 94 H 96 H 96 H Respiratory Rate 28 H 28 H 28 H Blood Pressure 117/73 119/71 117/67 Pulse Oximetry 100 100 100 03/07/18 03:00 03/07/18 03:10 03/07/18 03:20 Temperature Pulse Rate 92 H 93 H 90 Respiratory Rate 28 H 28 H 28 H Blood Pressure 117/68 116/70 112/73 Pulse Oximetry 100 100 100 03/07/18 03:30 03/07/18 03:40 03/07/18 03:50 Temperature Pulse Rate 95 H 107 H 98 H Respiratory Rate 28 H 28 H 28 H Blood Pressure 120/75 130/78 119/73 Pulse Oximetry 100 100 100 03/07/18 03:55 03/07/18 04:00 03/07/18 04:05 Temperature 99 F Pulse Rate 96 H 90 Respiratory Rate 28 H 28 H 28 H Blood Pressure 111/64 Pulse Oximetry 100 100 03/07/18 04:10 03/07/18 04:20 03/07/18 04:30 Temperature Pulse Rate 93 H 90 93 H Respiratory Rate 28 H 28 H 28 H Blood Pressure 117/69 123/69 115/66 Pulse Oximetry 100 100 100 03/07/18 04:40 03/07/18 05:00 03/07/18 06:00 Temperature Pulse Rate 90 87 86 Respiratory Rate 28 H 28 H 28 H Blood Pressure 111/64 111/65 104/59 L Pulse Oximetry 100 100 100 03/07/18 07:00 03/07/18 08:00 03/07/18 08:54 Temperature 100.0 F H 100.0 F H Pulse Rate 83 83 Respiratory Rate 28 H 28 H 28 H Blood Pressure 105/64 105/64 Pulse Oximetry 100 100 100 03/07/18 09:00 03/07/18 09:10 03/07/18 10:00 Temperature Pulse Rate 83 87 100 H Respiratory Rate 28 H 28 H 28 H Blood Pressure 105/64 128/74 Pulse Oximetry 100 100 03/07/18 11:00 Temperature Pulse Rate 100 H Respiratory Rate 28 H Blood Pressure 128/74 Pulse Oximetry 100 Intake & Output 03/06/18 03/07/18 03/07/18 18:59 06:59 18:59 Intake Total 3526 / 3526 758 / 758 100 / 100 Output Total 950 / 950 510 / 510 Balance 2576 / 2576 248 / 248 100 / 100 Weight 49.5 kg Intake: IV 1000 / 1000 300 / 300 100 / 100 Primaxin Inj 500 MG In NS Inj 542 / 542 300 / 300 100 / 100 100 ML @ 200 mls/hr IV.SIG Q6H KARINA Rx#:[id number] Potassium Phosphate Inj 30 MMOL 256 / 256 In NS Inj 250 ML @ 42 mls/hr IV.SIG UNSCH PRN Rx#:[id number] 10 mcg/mL Premix Drip 202 / 202 2,500 mcg In 250 ml @ 50 MCG/HR 5 mls/hr IV.SIG TITRATE PRN Rx #:[id number] Oral 360 / 360 Tube Feeding 86 / 86 238 / 238 Tube Irrigant 120 / 120 120 / 120 Water Bolus Amount 360 / 360 100 / 100 Other 400 / 400 Rbc As-3 Leukoreduced Unit 400 / 400 [id number] Intake (Blood Product) Amt 400 / 400 Rbc As-3 Leukoreduced Unit 400 / 400 [id number] Bladder Irrigation Fluid - 800 / 800 Amount Retained Straight 800 / 800 Output: Urine Amount (Catheter) 950 / 950 510 / 510 Straight 950 / 950 510 / 510 Other: Bladder Irrigation Fluid - Amount Drained Straight 950 Date of Last Bowel Movement 03/06/18 03/06/18 03/06/18 # Bowel Movements 1 # Incontinent Bowel Movements 1 03/06/18 05:12 Blood - Peripheral Aerobic Blood Culture - Preliminary No growth in 1 day 03/06/18 05:12 Blood - Peripheral Anaerobic Blood Culture - Preliminary No growth in 1 day 03/05/18 15:33 Blood - Peripheral Aerobic Blood Culture - Preliminary No growth in 2 days 03/05/18 15:33 Blood - Peripheral Anaerobic Blood Culture - Preliminary gram negative rods 03/05/18 12:55 Blood - Peripheral Aerobic Blood Culture - Preliminary No growth in 2 days 03/05/18 12:55 Blood - Peripheral Anaerobic Blood Culture - Preliminary No growth in 2 days Lab - Hematology Results 03/06/18 03/06/18 03/07/18 05:28 17:45 04:05 WBC 2.4 L 4.5 D RBC 2.22 L 3.38 L Hgb 6.7 L* 10.4 L D 10.7 L Hct 20.3 L* 30.6 L 30.8 L MCV 91.4 91.3 MCH 30.3 31.6 MCHC 33.2 34.6 RDW 21.0 H 17.9 H D Plt Count 28 L 34 L MPV 9.7 10.5 Prelim Diff (Auto) Slide review pending Neut % (Auto) 90.6 H Lymph % (Auto) 6.9 L [place] % (Auto) 2.2 Eos % (Auto) 0.1 Baso % (Auto) 0.2 Neut # (Auto) 4.1 Lymph # (Auto) 0.3 L [place] # (Auto) 0.1 Eos # (Auto) 0.0 Baso # (Auto) 0.0 WBC Differential Manual diff final Seg Neuts % (Manual) 81 H Band Neuts % (Manual) 17 H Lymphocytes % (Manual) 1 L Monocytes % (Manual) 1 Abs Neuts (Manual) 4.4 Differential Comment . Toxic Granulation Dohle Bodies Platelet Estimate Low L Platelet Morphology Enlarged H Ovalocytes 1+ H Keratocytes 03/07/18 09:15 WBC 4.6 RBC 3.35 L Hgb 10.6 L Hct 30.8 L MCV 92.0 MCH 31.6 MCHC 34.4 RDW 18.2 H Plt Count 22 L D MPV 9.5 Prelim Diff (Auto) Slide review pending Neut % (Auto) 89.4 H Lymph % (Auto) 8.1 L [place] % (Auto) 2.1 Eos % (Auto) 0.2 Baso % (Auto) 0.2 Neut # (Auto) 4.1 Lymph # (Auto) 0.4 L [place] # (Auto) 0.1 Eos # (Auto) 0.0 Baso # (Auto) 0.0 WBC Differential Manual diff final Seg Neuts % (Manual) 69 Band Neuts % (Manual) 26 H Lymphocytes % (Manual) 3 L Monocytes % (Manual) 2 Abs Neuts (Manual) 4.4 Differential Comment . Toxic Granulation 1+ H Dohle Bodies Present H Platelet Estimate Low L Platelet Morphology Enlarged H Ovalocytes 1+ H Keratocytes Occ H Lab - Chemistry Results 03/05/18 03/05/18 03/05/18 11:51 18:37 21:55 Sodium Potassium 3.3 L Chloride Carbon Dioxide Anion Gap BUN Creatinine Estimated GFR POC Glucose 125 H 126 H Random Glucose Calcium Prot Corrected Calcium Phosphorus 1.7 L Magnesium Total Bilirubin AST ALT Alkaline Phosphatase Total Protein Albumin 03/06/18 03/06/18 03/06/18 01:06 04:55 05:28 Sodium 143 Potassium 3.7 Chloride 111 H Carbon Dioxide 22.8 Anion Gap 9 BUN 12 Creatinine 0.28 L Estimated GFR Greater than 89 POC Glucose 133 H 142 H Random Glucose 152 H Calcium 6.2 L* Prot Corrected Calcium 7.5 L Phosphorus Magnesium Total Bilirubin 1.1 H AST 26 ALT 15 Alkaline Phosphatase 257 H Total Protein 4.4 L Albumin 1.5 L 03/06/18 03/06/18 03/06/18 08:06 13:33 23:48 Sodium Potassium Chloride Carbon Dioxide Anion Gap BUN Creatinine Estimated GFR POC Glucose 126 H 107 105 Random Glucose Calcium Prot Corrected Calcium Phosphorus Magnesium Total Bilirubin AST ALT Alkaline Phosphatase Total Protein Albumin 03/07/18 03/07/18 03/07/18 04:05 09:15 09:41 Sodium 142 143 Potassium 3.2 L 3.3 L Chloride 111 H 112 H Carbon Dioxide 21.2 19.1 L Anion Gap 10 12 BUN 11 11 Creatinine 0.27 L 0.26 L Estimated GFR Greater than 89 Greater than 89 POC Glucose 129 H Random Glucose 112 H 106 Calcium 6.3 L* 6.7 L* Prot Corrected Calcium 7.6 L 8.1 L Phosphorus 1.9 L 2.0 L Magnesium 1.6 D 1.8 Total Bilirubin 1.0 1.1 H AST 31 27 ALT 14 14 Alkaline Phosphatase 247 H 248 H Total Protein 4.5 L 4.5 L Albumin 1.5 L 1.5 L Imaging: ITS Impressions Chest X-Ray 03/07/18 00:00 CONCLUSION: 1. Persistent left lower lobe consolidation and pleural effusion. 2. Interval resolution of diffuse infiltrates in the right lung and reduction in the infiltrates in the left upper lung. Physical Exam: GENERAL: Sedated, on the vent, NAD SKIN: Cool, no generalized rash HEENT: Head is atraumatic. Pupils reactive to light. No icterus. Oropharynx dry mucosa. NECK: Not fully assessed because the neck collar was not removed. LUNGS: Scattered rhonchi, decreased breath sounds on the left side HEART: Tachycardic ABDOMEN: Mildly distended, has hypoactive bowel sounds, diffusely tender, and patient moaning EXTREMITIES: Cool feet. Has pedal edema on the left side, none on the right NEUROLOGIC: Sedated PSYCH: Unable to assess LINE: NO evidence of infection Assessment and Plan - Plan IMPRESSION: E coli ESBL sepsis with shock Clinical deterioration with increased O2 requirement, likely ARDS - too rapid development of infiltrates for PNA E coli ESBL (+) UTI, recurrent - CT A/P no hydronephrosis - has had problem with retention here Respiratory failure Urinary retention RECOMMENDATIONS: Continue Primaxin Sputum G/S C/S Repeat blood culture to document clearing Repeat echo - no veg seen Follow cultures and adjust antibiotics Monitor progress
[2018-03-07] MEDS: Acetaminophen 325 MG Tablet PO PRN (12:23)
--- NOTE | 2018-03-07 17:40 | P.PNWCN ---
Wound Care Nurse Consult Description: wound consult ordered for wound management. Communicated with: Nisha SMITH, Recommendation: 1. Reposition patient every 2 hours for comfort and offloading. 2. Cleanse sacral wound with normal saline ONLY.pat dry 3. Apply Santyl 2mm thick to wound base and cover with moistened gauze secure with dry boarder gauze. 4. Change dressing daily or as needed for dislodgement/exudate management.Sign and date all dressings. 5. Reconsult wound care if treatment fails or wounds worsen. Additional information: Patient was seen today by ghost writer and Nisha SMITH for wound management.Patient currently sedated and on vent.Patient was repositioned to left side with 2 person assist.Foam dressing removed from sacral area.Wound cleansed with normal saline pat dry.Patient has unstageable pressure injury to sacral region measuring 6.0cm x2.8cm x slough.Wound base is 75% moist adhered yellow slough 25 % dark yellow/brown dry slough.Wound edges are well defined uneven with wound base.Scant serosanguineous exudate noted without odor.Periwound blanchable to touch.Calazime applied to periwound and covered with dry dressing till Santyl available. Wound/Pressure Injury - Patient Status Premedicated for Pain Prior to Dressing Change: No - Wound Midline Posterior Sacrum Wound Staging: Unstageable Wound Assessment: Ongoing Wound Type: Pressure Injury Is This a Chronic Wound: Yes Requested from Provider a Wound Care Consult: No Length: 6.0 Width: 2.8 Wound Bed Appearance: Necrotic, Yellow Surrounding Tissue Appearance: Erythema Surrounding Tissue Temperature: Cool Drainage Description: Serosanguinous Drainage Amount: Scant Drainage Odor: No Odor Dressing Status: Changed Cleansing Solution: Saline (ONLY) Topical: Enzymatic Debridement Ointment Primary Dressing: Gauze Pad Cover Dressing: Adhesive Dressing Wound Dressing Change Date: 03/07/18 Incision - Patient Status Premedicated for Pain Prior to Dressing Change: No
[2018-03-08 05:20] LABS: Hematocrit 29.6 % (35.0-46.0); Hemoglobin 10.2 gm/dL (11.6-15.3); Mean Corpuscular HGB Conc 34.5 % (32.0-36.0); Mean Corpuscular Hemoglobin 31.6 pg (27.0-34.0); Mean Corpuscular Volume 91.6 fL (80.0-100.0); Mean Platelet Volume 10.9 fL (7.0-11.0); Platelet Count 26 th/mm3 (150-450); Red Blood Count 3.23 mil/mm3 (4.00-5.30); Red Cell Distribution Width 17.4 % (11.6-17.2); White Blood Count 4.3 th/mm3 (4.0-11.0)
[2018-03-08 05:36] LABS: Albumin 1.3 g/dL (3.4-5.0); Anion Gap 11 meq/L (5-15); Aspartate Aminotransferase 35 U/L (15-37); Blood Urea Nitrogen 14 mg/dL (7-18); Calcium 6.9 mg/dL (8.5-10.1); Carbon Dioxide 19.9 meq/L (21.0-32.0); Chloride 113 meq/L (98-107); Glomerular Filtration Rate Greater Than 89 mL/min (>89); Glucose,Random 126 mg/dL (74-106); Potassium 3.7 meq/L (3.5-5.1); Sodium 144 meq/L (136-145)
[2018-03-08 05:42] LABS: Alanine Aminotransferase 15 U/L (10-53); Alkaline Phosphatase 276 U/L (45-117); Total Protein 4.2 g/dL (6.4-8.2)
[2018-03-08] MEDS: Insulin NovoLIN Regular Correctional Sugar Inj SQ SCH ×2 (06:02→15:53)
[2018-03-08] MEDS: Levothyroxine 50 MCG Tablet PO SCH (06:09)
[2018-03-08] MEDS: Gabapentin 300 MG Capsule PO SCH ×3 (08:00→17:08)
[2018-03-08] MEDS: Famotidine 20 MG Tablet PO SCH ×2 (08:01→21:05)
--- NOTE | 2018-03-08 10:21 | P.PNCC ---
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 she was sent to [facility] for procedural management of these. She was then transferred to [place] [facility] on 02/28. Please see the dictated hospitalist consult note on 02/28 on admission to [place] for a detailed record of the hospital course while at [facility]. Today, she was found to be very tachycardic in the 160s and hypotensive with sbp in the 70s. She was emergently transferred to the ICU after rapid response was called for evaluation and management of her hypotension. Of note, she did not have iv access. I met her on arrival to the ICU. I placed 2 18g piv. 12-lead EKG confirms sinus tachycardia. I due to the fast rate, I gave 6mg adenosine to slow it down diagnostically, and it slowed down temporarily to a HR in the 70s, confirming sinus rhythm. I performed bedside critical care echocardiography which demonstrates grossly preserve biventricular function. in particular, RV is decompressed and well-functioning. IVC is completely collapsable. no pericardial effusion. I gave her 3L NS bolus ivf which improved her SBP to 110s and decreased her HR to 110s. She is afebrile. stat CBC shows anemia (history of recent femoral artery pseudoaneurysm), CMP demonstrates elevated AST and Alk phos, elevated lactate at 3.7. Cr elevated above baseline. Patient denies any complaints to me. she is mostly south african speaking, but communicates in basic polish. specifically denies chest pain, shortness of breath, fever/chills, nausea, vomiting, abdominal pain, constipation, diarrhea. I discussed with her family, she has been eating and drinking well even up to today. ROS otherwise negative. 03/02 Patient is awake lying in bed in TRAV. On room air oxygen. T:103.2 this morning She was hypotensive overnight initially placed on Neosyn now off pressor with BP 147/67 with MAP 96. 03/03 No events overnight. Seems more awake and alert this morning. T: 100.2 at midnight. BP and HR better ( 119/58 with MAP 83mmHg). On no pressors. BC from 03/01: E.coli ESBL 6/30: clinically improving. slightly tachycardic. on appropriate therapy for her ESBL e. coli. denies complaints. hemodynamically stable. on room air. 03/05: Patient developed worsening respiratory distress yesterday and required endotracheal intubation and was placed on mechanical ventilation. Hypotension overnight for which patient was started on phenylephrine. Developed A. fib with RVR and was started on amiodarone gtt. 03/06 Patient remains sedated and intubated. Tmax 101.6, On Amio drip. 03/07 Patient remains intubated off sedation. s/p transfusion 2u PRBC yesterday. Tolerating tube feeds. Afebrile. Off Amio drip. 03/08 Patient remains intubated. T:100.9 last night. Objective Vital Signs / I&O: Vital Signs 03/07/18 11:00 03/07/18 12:00 03/07/18 13:00 Temperature 98.3 F 98.3 F Pulse Rate 100 H 96 H 103 H Respiratory Rate 28 H 28 H 28 H Blood Pressure 113/70 112/69 102/63 Pulse Oximetry 100 100 100 03/07/18 14:00 03/07/18 15:00 03/07/18 16:00 Temperature Pulse Rate 103 H 98 H 103 H Respiratory Rate 28 H 28 H 28 H Blood Pressure 89/51 L 93/57 L 115/67 Pulse Oximetry 100 100 100 03/07/18 17:00 03/07/18 17:25 03/07/18 18:00 Temperature 98.3 F 98.9 F Pulse Rate 102 H 92 H 100 H Respiratory Rate 28 H 28 H 19 Blood Pressure 111/74 141/74 H Pulse Oximetry 100 100 100 03/07/18 19:00 03/07/18 19:52 03/07/18 20:00 Temperature 100.9 F H Pulse Rate 118 H 128 H Respiratory Rate 14 28 H 21 Blood Pressure 147/88 H 142/86 H Pulse Oximetry 100 100 100 03/07/18 21:00 03/07/18 22:00 03/07/18 23:00 Temperature Pulse Rate 125 H 130 H 123 H Respiratory Rate 8 L 28 H 28 H Blood Pressure 123/75 92/55 L 76/47 L Pulse Oximetry 100 100 100 03/08/18 00:00 03/08/18 00:07 03/08/18 00:30 Temperature 100 F H Pulse Rate 115 H 127 H Respiratory Rate 28 H 28 H 28 H Blood Pressure 74/51 L 97/63 L Pulse Oximetry 100 100 100 03/08/18 01:00 03/08/18 02:00 03/08/18 03:00 Temperature Pulse Rate 113 H 114 H 96 H Respiratory Rate 28 H 28 H 28 H Blood Pressure 82/54 L 84/60 L 90/60 L Pulse Oximetry 100 100 100 03/08/18 04:00 03/08/18 04:12 03/08/18 05:00 Temperature 97.5 F L Pulse Rate 97 H 99 H Respiratory Rate 28 H 28 H 28 H Blood Pressure 99/65 L 113/62 Pulse Oximetry 100 100 100 03/08/18 06:00 03/08/18 06:01 03/08/18 07:00 Temperature 98.6 F Pulse Rate 97 H 94 H 105 H Respiratory Rate 26 H 26 H 0 L Blood Pressure 140/79 140/74 144/79 H Pulse Oximetry 100 100 100 03/08/18 08:00 03/08/18 08:30 03/08/18 09:00 Temperature 98.6 F Pulse Rate 114 H 131 H 128 H Respiratory Rate 28 H 28 H 28 H Blood Pressure 151/112 H 149/89 H 133/80 Pulse Oximetry 100 100 100 Intake & Output 03/07/18 03/08/18 03/08/18 18:59 06:59 18:59 Intake Total 1215 / 1215 1965 / 1965 Output Total 1050 / 1050 1870 / 1870 Balance 165 / 165 95 / 95 Weight 49.5 kg Intake: IV 540 / 540 300 / 300 Ofirmev Inj 1,000 mg In 100 ml 100 / 100 @ 400 mls/hr IV.SIG Q6H PRN Rx# :[id number] Calcium Chloride Inj 1 GM In NS 100 / 100 Inj 100 ML @ 110 mls/hr IV.SIG ONCE ONE Rx#:[id number] Primaxin Inj 500 MG In NS Inj 200 / 200 200 / 200 100 ML @ 200 mls/hr IV.SIG Q6H KARINA Rx#:[id number] Potassium Phosphate Inj 30 MMOL 240 / 240 In NS Inj 250 ML @ 42 mls/hr IV.SIG UNSCH PRN Rx#:[id number] Oral 360 / 360 Tube Feeding 435 / 435 745 / 745 Tube Irrigant 240 / 240 360 / 360 Water Bolus Amount 200 / 200 Output: Urine 1050 / 1050 1870 / 1870 Other: Date of Last Bowel Movement 03/07/18 03/07/18 03/07/18 # Bowel Movements 1 1 # Incontinent Bowel Movements 1 Result Diagrams: 03/08/18 04:12 03/08/18 04:12 Objective Remarks: GENERAL: Patient is 62 yo intubated and sedated SKIN: Warm and dry. HEAD: Normocephalic. EYES: No scleral icterus. No injection or drainage. NECK: Supple, trachea midline. No JVD or lymphadenopathy. CARDIOVASCULAR: Tachycardic without murmurs, gallops, or rubs. RESPIRATORY: Breath sounds equal bilaterally. No accessory muscle use. GASTROINTESTINAL: Abdomen soft, non-tender, nondistended. MUSCULOSKELETAL: No cyanosis, or edema. Neuro: Intubated, Assessment and Plan - Assessment and Plan Plan: A/P Assessment and Plan Plan by system Neuro: Off sedation. Monitor neuro status CT brain: Negative or acute process MRI brain: previously noted subarachnoid hemorrhage overlying the occipital lobes has resolved. Tiny trace of residual hemorrhage in the posterior lateral ventricles. Stable chronic white matter changes. No new or acute intracranial process. Pulm: ARDS Continue vent support keep sats >92% Bronchodilators, ICU vent bundle. CTA chest: No PE, minimal consolidative changes left base CV: A. fib Place on Lopressor 25mg Q12 Monitor HR and BP keep MAP>65mmHg. Pravachol 20mg daily -Elevated troponin, type II demand ischemia NSTEMI - Lactic acid cleared 1.9- Echo 03/06 EF 50-55% -will not anticoagulate at this time given risk/benefit with recent head bleed Cortisol level: 41 Cards is following : Urinary retention Monitor renal function, electrolytes replacement per protocol. GI: Elevated AST, Alk phos Monitor LFT's, CT abd/pelvis without evidence of overt acute cholecystitis On tube feeds- Glucerna 1.5with goal rate 45ml/hr ID: Gram negative bacteremia Urinary tract infection s/p Septic shock Continue with abx per ID ( Imipenem) ,Monitor for signs of infections ( Fever, WBC) Check BC x 2 sets today 03/06 PC 1/ bottles 03/05 BC: E.coli bacteremia 03/01 BC: E.coli ESBL 03/01 Urine cx: GNR Heme: Anemia -Monitor CBC, s/p transfuse 2u PRBC / Check coags, Fibrinogen level r/o DIC, Heme eval. Check Hep PLT ab Sacral decubitus - present on admission - does not appear grossly infected - likely not the source of infection - management per wound care nurse Endo: SSI if needed for glycemic control On Synthroid 50mcg daily,. 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 Time spent on critical care excluding procedures 30 minutes
[2018-03-08 10:59] LABS: ABG Base Excess -3.3 mmol/L (-2-2); ABG PCO2 23 mmHg (38-42); ABG PO2 94 mmHG (61-120)
[2018-03-08 11:22] LABS: Baso # (Auto) 0.1 th/mm3 (0.0-0.2); Baso % (Auto) 0.9 % (0.0-2.0); Eos % (Auto) 0.1 % (0.0-4.0); Hematocrit 31.3 % (35.0-46.0); Hemoglobin 10.7 gm/dL (11.6-15.3); Lymph # (Auto) 0.3 th/mm3 (1.0-4.8); Lymph % (Auto) 5.2 % (9.0-44.0); Mean Corpuscular HGB Conc 34.2 % (32.0-36.0); Mean Corpuscular Hemoglobin 31.7 pg (27.0-34.0); Mean Corpuscular Volume 92.7 fL (80.0-100.0); Mean Platelet Volume 10.1 fL (7.0-11.0); Mono # (Auto) 0.1 th/mm3 (0.0-0.9); Mono % (Auto) 2.3 % (0.0-8.0); Neut % (Auto) 91.5 % (16.0-70.0); Platelet Count 31 th/mm3 (150-450); Red Blood Count 3.37 mil/mm3 (4.00-5.30); Red Cell Distribution Width 17.6 % (11.6-17.2); White Blood Count 5.5 th/mm3 (4.0-11.0)
[2018-03-08 11:32] LABS: INR 1.1 Ratio; Prothrombin Time 11.4 sec (9.8-11.6)
[2018-03-08 11:44] LABS: Albumin 1.4 g/dL (3.4-5.0); Anion Gap 11 meq/L (5-15); Blood Urea Nitrogen 14 mg/dL (7-18); Calcium 7.5 mg/dL (8.5-10.1); Carbon Dioxide 19.4 meq/L (21.0-32.0); Chloride 112 meq/L (98-107); Glomerular Filtration Rate Greater Than 89 mL/min (>89); Glucose,Random 120 mg/dL (74-106); Potassium 3.8 meq/L (3.5-5.1); Sodium 142 meq/L (136-145)
[2018-03-08 11:45] LABS: Alanine Aminotransferase 16 U/L (10-53); Aspartate Aminotransferase 32 U/L (15-37)
[2018-03-08 11:48] LABS: Alkaline Phosphatase 301 U/L (45-117); Total Protein 4.6 g/dL (6.4-8.2)
--- NOTE | 2018-03-08 12:08 | P.DIET ---
Nutritional Evaluation Type of nutrition evaluation: follow-up Nutrition consult regarding: Tube Feeding Nutrition screening: Pressure Injury Subjective Subjective Comments: Pt [facility] here Objective - Objective % IBW: 95 Body Weight Used for Calculations: IBW Energy Needs - Lower Range (kCal/kg): 33 Energy Needs - Upper Range (kCal/kg): 38 Lower Limit kCal/kg (kCals): 1,455 Upper Limit kCal/kg (kCals): 1,676 Lower Limit Protein Factor (Grams per Kg): 1.2 Upper Limit Protein Factor (Grams per Kg): 1.5 Lower Protein Needs (Protein): 53 Upper Protein Needs (Protein): 66 Dietitian Reviewed in Medical Record: Current diet, Curent medications, Intake & Output, Labs, Tube feeding, Wound/DTI Diet Order: TF only Wound Care Note: 03/07 WOC consult: 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 Objective Comments: Pt's nutritional needs based on 44.1kg PMH: HTN, DM hypothyroidism, Lupus, RA, Anemia, Subarachnoid Hemorrhage, intramedullary spinal bleed Meds include: Synthroid Labs include: Glu 126, Ca 6.9, Alk Phos 276 UOP: 2920, +2 BM's Feeding - Current Tube Feeding Tube Feeding Product: Glucerna 1.5 Tube Feeding Method: Pump Tube Feeding Rate: 45 Current kCals Provided by Tube Feedin,485 Current Protein Provided by Tube Feeding (gPRO): 82 Medications That Affect Tube Feeding Run Time: Synthroid Total Time Off: 2 hours Current Free H2O Provided (m/l): 752 Assessment Assessment: Pt at nutritional risk r/t the need for a TF for nutrition support. Pt remains intubated, off sedation. Current TF Glucerna 1.5 is running at 45 ml/hr for 22 hrs (hold one hr before and after Synthroid) per MD. This is adequate to meet pt 's nutritional needs providing 1485 kcals, 82 gms protein and 752 mls free water. However, this is not adequate in providing 100% RDI's for pt so recommend Theragran M q day. Reviewed WOC consult, MD notes, labs. Will monitor TF tolerance, clinical course. Recommendations: TF Glucerna 1.5 @ goal rate 45 ml/hr Recommend Theragran M q day to meet pt's RDI's for vits/mins Dietitian following Dietitian to Monitor: Lab values, Intake & Output, Tube feeding tolerance, Wound /skin status, Medical course
[2018-03-08] MEDS: Metoprolol Tartrate 25 MG Tablet PO SCH ×2 (12:09→21:05)
[2018-03-08 12:13] LABS: Dohle Bodies Present; Lymphocytes 5 % (9-44)
[2018-03-08 12:14] LABS: Ovalocytes 1+
[2018-03-08 12:15] LABS: Platelet Morphology Normal (Normal)
--- NOTE | 2018-03-08 13:37 | P.PNID ---
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 she was sent to [facility] 01/30 for procedural management of these. Her stay at [facility] was complicated by sepsis, and she had E. coli ESBL positive UTI , but the blood cultures were negative. She was then transferred to [facility] rehab on 02/04. Today, she was found to be very tachycardic in the 160s and hypotensive with sbp in the 70s. She was emergently transferred to the ICU 03/01 , after rapid response was called for evaluation and management of her hypotension. At [facility], she had urine culture from [facility] that has E. coli ESBL positive Notes reviewed Low grade temps overnight On CPAP WBC better Platelets low, no DIC Chest x-ray with improving infiltrates Blood culture with E. coli ESBL positive Urine culture with E. coli ESBL positive Last (+) BC 03/05 One BC with Coag Neg Staph, likely contaminant WBC okay Creatinine okay CT of the abdomen and pelvis did not show any hydronephrosis Antibiotics: Primaxin Lines: LSC TLC no evidence of infection Past Medical History: Diabetes mellitus, hypertension, hypothyroidism, systemic lupus erythematosus, rheumatoid arthritis, anemia, recent subarachnoid hemorrhage, C6 mass resection, hysterectomy, bladder sling, appendectomy, C4-C7 laminectomy, C4-T1 posterior fusion. Allergies/Adverse Reactions: Allergies codeine Allergy (Intermediate, Verified 01/24/18 17:12) nitroglycerin Adverse Reaction (Severe, Verified 01/25/18 09:14) Nausea/Vomiting Objective Vital Signs Temp Pulse Resp BP Pulse Ox 03/08/18 11:40 18 03/08/18 11:00 133 H 28 H 111/76 100 03/08/18 10:30 141 H 28 H 129/81 100 03/08/18 10:00 132 H 28 H 125/76 100 03/08/18 09:30 131 H 28 H 123/76 100 03/08/18 09:00 128 H 28 H 133/80 100 03/08/18 08:30 131 H 28 H 149/89 H 100 03/08/18 08:00 98.6 F 114 H 28 H 151/112 H 100 03/08/18 07:00 98.6 F 105 H 0 L 144/79 H 100 03/08/18 06:01 94 H 26 H 140/74 100 03/08/18 06:00 97 H 26 H 140/79 100 03/08/18 05:00 99 H 28 H 113/62 100 03/08/18 04:12 28 H 100 03/08/18 04:00 97.5 F L 97 H 28 H 99/65 L 100 03/08/18 03:00 96 H 28 H 90/60 L 100 03/08/18 02:00 114 H 28 H 84/60 L 100 03/08/18 01:00 113 H 28 H 82/54 L 100 03/08/18 00:30 28 H 100 03/08/18 00:07 127 H 28 H 97/63 L 100 03/08/18 00:00 100 F H 115 H 28 H 74/51 L 100 03/07/18 23:00 123 H 28 H 76/47 L 100 03/07/18 22:00 130 H 28 H 92/55 L 100 03/07/18 21:00 125 H 8 L 123/75 100 03/07/18 20:00 100.9 F H 128 H 21 142/86 H 100 03/07/18 19:52 28 H 100 03/07/18 19:00 118 H 14 147/88 H 100 03/07/18 18:00 98.9 F 100 H 19 141/74 H 100 03/07/18 17:25 92 H 28 H 100 03/07/18 17:00 98.3 F 102 H 28 H 111/74 100 03/07/18 16:00 103 H 28 H 115/67 100 03/07/18 15:00 98 H 28 H 93/57 L 100 03/07/18 14:00 103 H 28 H 89/51 L 100 Intake and Output 03/07/18 03/08/18 03/08/18 22:59 06:59 14:59 Intake Total 1315 / 1315 1765 / 1765 Output Total 1050 / 1050 1870 / 1870 Balance 265 / 265 -105 / -105 Intake: IV 640 / 640 100 / 100 Ofirmev Inj 1,000 mg In 100 ml 100 / 100 @ 400 mls/hr IV.SIG Q6H PRN Rx# :[id number] Calcium Chloride Inj 1 GM In NS 100 / 100 Inj 100 ML @ 110 mls/hr IV.SIG ONCE ONE Rx#:[id number] Primaxin Inj 500 MG In NS Inj 200 / 200 100 / 100 100 ML @ 200 mls/hr IV.SIG Q6H KARINA Rx#:[id number] Potassium Phosphate Inj 30 MMOL 240 / 240 In NS Inj 250 ML @ 42 mls/hr IV.SIG UNSCH PRN Rx#:[id number] Oral 360 / 360 Tube Feeding 435 / 435 745 / 745 Tube Irrigant 240 / 240 360 / 360 Water Bolus Amount 200 / 200 Output: Urine 1050 / 1050 1870 / 1870 Other: Date of Last Bowel Movement 03/07/18 03/07/18 03/07/18 # Bowel Movements 1 1 # Incontinent Bowel Movements 1 Weight 49.5 kg Intake & Output 03/07/18 03/08/18 03/08/18 18:59 06:59 18:59 Intake Total 1215 / 1215 1965 / 1965 Output Total 1050 / 1050 1870 / 1870 Balance 165 / 165 95 / 95 Weight 49.5 kg Intake: IV 540 / 540 300 / 300 Ofirmev Inj 1,000 mg In 100 ml 100 / 100 @ 400 mls/hr IV.SIG Q6H PRN Rx# :[id number] Calcium Chloride Inj 1 GM In NS 100 / 100 Inj 100 ML @ 110 mls/hr IV.SIG ONCE ONE Rx#:[id number] Primaxin Inj 500 MG In NS Inj 200 / 200 200 / 200 100 ML @ 200 mls/hr IV.SIG Q6H KARINA Rx#:[id number] Potassium Phosphate Inj 30 MMOL 240 / 240 In NS Inj 250 ML @ 42 mls/hr IV.SIG UNSCH PRN Rx#:[id number] Oral 360 / 360 Tube Feeding 435 / 435 745 / 745 Tube Irrigant 240 / 240 360 / 360 Water Bolus Amount 200 / 200 Output: Urine 1050 / 1050 1870 / 1870 Other: Date of Last Bowel Movement 03/07/18 03/07/18 03/07/18 # Bowel Movements 1 1 # Incontinent Bowel Movements 1 03/05/18 12:55 Blood - Peripheral Aerobic Blood Culture - Preliminary gram negative rods 03/05/18 12:55 Blood - Peripheral Anaerobic Blood Culture - Preliminary gram negative rods 03/08/18 11:00 Blood - Peripheral Aerobic Blood Culture - Pending 03/08/18 11:00 Blood - Peripheral Anaerobic Blood Culture - Pending 03/08/18 11:09 Blood - Peripheral Aerobic Blood Culture - Pending 03/08/18 11:09 Blood - Peripheral Anaerobic Blood Culture - Pending 03/06/18 05:12 Blood - Peripheral Aerobic Blood Culture - Preliminary No growth in 2 days 03/06/18 05:12 Blood - Peripheral Anaerobic Blood Culture - Preliminary Staphylococcus coag negative 03/05/18 15:33 Blood - Peripheral Aerobic Blood Culture - Preliminary No growth in 3 days 03/05/18 15:33 Blood - Peripheral Anaerobic Blood Culture - Final Escherichia coli ESBL positive 03/07/18 16:00 Sputum - Endotracheal Gram Stain - Final 03/07/18 16:00 Sputum - Endotracheal Sputum Culture - Pending Lab - Hematology Results 03/06/18 03/07/18 03/07/18 17:45 04:05 09:15 WBC 4.5 D 4.6 RBC 3.38 L 3.35 L Hgb 10.4 L D 10.7 L 10.6 L Hct 30.6 L 30.8 L 30.8 L MCV 91.3 92.0 MCH 31.6 31.6 MCHC 34.6 34.4 RDW 17.9 H D 18.2 H Plt Count 34 L 22 L D MPV 10.5 9.5 Prelim Diff (Auto) Slide review pending Slide review pending Neut % (Auto) 90.6 H 89.4 H Lymph % (Auto) 6.9 L 8.1 L [place] % (Auto) 2.2 2.1 Eos % (Auto) 0.1 0.2 Baso % (Auto) 0.2 0.2 Neut # (Auto) 4.1 4.1 Lymph # (Auto) 0.3 L 0.4 L [place] # (Auto) 0.1 0.1 Eos # (Auto) 0.0 0.0 Baso # (Auto) 0.0 0.0 WBC Differential Manual diff final Manual diff final Seg Neuts % (Manual) 81 H 69 Band Neuts % (Manual) 17 H 26 H Lymphocytes % (Manual) 1 L 3 L Monocytes % (Manual) 1 2 Abs Neuts (Manual) 4.4 4.4 Differential Comment . . Toxic Granulation 1+ H Dohle Bodies Present H Platelet Estimate Low L Low L Platelet Morphology Enlarged H Enlarged H Ovalocytes 1+ H 1+ H Keratocytes Occ H 03/08/18 03/08/18 04:12 11:09 WBC 4.3 5.5 RBC 3.23 L 3.37 L Hgb 10.2 L 10.7 L Hct 29.6 L 31.3 L MCV 91.6 92.7 MCH 31.6 31.7 MCHC 34.5 34.2 RDW 17.4 H 17.6 H Plt Count 26 L 31 L MPV 10.9 10.1 Prelim Diff (Auto) Slide review pending Neut % (Auto) 91.5 H Lymph % (Auto) 5.2 L [place] % (Auto) 2.3 Eos % (Auto) 0.1 Baso % (Auto) 0.9 Neut # (Auto) 5.0 Lymph # (Auto) 0.3 L [place] # (Auto) 0.1 Eos # (Auto) 0.0 Baso # (Auto) 0.1 WBC Differential Manual diff final Seg Neuts % (Manual) 60 Band Neuts % (Manual) 35 H Lymphocytes % (Manual) 5 L Monocytes % (Manual) Abs Neuts (Manual) 5.2 Differential Comment . Toxic Granulation Dohle Bodies Present H Platelet Estimate Low L Platelet Morphology Normal Ovalocytes 1+ H Keratocytes Lab - Chemistry Results 03/06/18 03/06/18 03/07/18 13:33 23:48 04:05 Sodium 142 Potassium 3.2 L Chloride 111 H Carbon Dioxide 21.2 Anion Gap 10 BUN 11 Creatinine 0.27 L Estimated GFR Greater than 89 POC Glucose 107 105 Random Glucose 112 H Calcium 6.3 L* Prot Corrected Calcium 7.6 L Phosphorus 1.9 L Magnesium 1.6 D Total Bilirubin 1.0 AST 31 ALT 14 Alkaline Phosphatase 247 H Total Protein 4.5 L Albumin 1.5 L 03/07/18 03/07/18 03/07/18 09:15 09:41 16:49 Sodium 143 Potassium 3.3 L Chloride 112 H Carbon Dioxide 19.1 L Anion Gap 12 BUN 11 Creatinine 0.26 L Estimated GFR Greater than 89 POC Glucose 129 H 152 H Random Glucose 106 Calcium 6.7 L* Prot Corrected Calcium 8.1 L Phosphorus 2.0 L Magnesium 1.8 Total Bilirubin 1.1 H AST 27 ALT 14 Alkaline Phosphatase 248 H Total Protein 4.5 L Albumin 1.5 L 03/07/18 03/08/18 03/08/18 23:11 04:12 11:09 Sodium 144 142 Potassium 3.7 3.8 Chloride 113 H 112 H Carbon Dioxide 19.9 L 19.4 L Anion Gap 11 11 BUN 14 14 Creatinine 0.25 L 0.25 L Estimated GFR Greater than 89 Greater than 89 POC Glucose 136 H Random Glucose 126 H 120 H Calcium 6.9 L* 7.5 L Prot Corrected Calcium 8.5 Phosphorus Magnesium Total Bilirubin 0.9 0.8 AST 35 32 ALT 15 16 Alkaline Phosphatase 276 H 301 H Total Protein 4.2 L 4.6 L Albumin 1.3 L 1.4 L 03/08/18 11:51 Sodium Potassium Chloride Carbon Dioxide Anion Gap BUN Creatinine Estimated GFR POC Glucose 113 H Random Glucose Calcium Prot Corrected Calcium Phosphorus Magnesium Total Bilirubin AST ALT Alkaline Phosphatase Total Protein Albumin Imaging: ITS Impressions Chest X-Ray 03/07/18 00:00 CONCLUSION: 1. Persistent left lower lobe consolidation and pleural effusion. 2. Interval resolution of diffuse infiltrates in the right lung and reduction in the infiltrates in the left upper lung. Physical Exam: GENERAL: Sedated, on the vent, NAD SKIN: Cool, no generalized rash HEENT: Head is atraumatic. Pupils reactive to light. No icterus. Oropharynx dry mucosa. NECK: Not fully assessed because the neck collar was not removed. LUNGS: Scattered rhonchi, decreased breath sounds on the left side HEART: Tachycardic ABDOMEN: Mildly distended, has hypoactive bowel sounds, diffusely tender, and patient moaning EXTREMITIES: Cool feet. Has pedal edema on the left side, none on the right NEUROLOGIC: Sedated PSYCH: Unable to assess LINE: NO evidence of infection Assessment and Plan - Plan IMPRESSION: E coli ESBL sepsis with shock - BP better Clinical deterioration with increased O2 requirement, likely ARDS - too rapid development of infiltrates for PNA E coli ESBL (+) UTI, recurrent - CT A/P no hydronephrosis - has had problem with retention here Respiratory failure Thrombocytopenia due to sepsis, no DIC Urinary retention RECOMMENDATIONS: Continue Primaxin Follow Sputum G/S C/S Repeat blood culture to document clearing Repeat echo - no veg seen Follow cultures and adjust antibiotics Repeat UA and C/S Monitor progress Weaning per CCM Spoke with family
--- NOTE | 2018-03-08 15:15 | P.PNONC ---
Subjective Interval history: This is not a progress note. This is a new patient consultation being done in the intensive care unit. Reason for consultation- patient with pancytopenia 03/06/2018 hemoglobin 6.7 white count 2400 and platelet count 28,000. 03/08/2018 hemoglobin 10.7 white count 5500 and platelet count 31,000 Patient profile: The current history is obtained by reviewing the records and speaking with the patient's daughter, Sylvie by phone. The patient is a 62-year- old female. she has been twice. She has 2 daughters. She was born in [place]. She does not smoke. Ethanol intake in the past has been minimal. History of present illness: The current history is obtained by speaking with the patient's daughter. In approximately January 2016 the patient developed left- sided weakness. She underwent evaluation and at one point was felt to have an aneurysm. In late January 2018 she was found to have a small subarachnoid hemorrhage and associated hypertension. She did not require a surgical intervention. She underwent surgery at [facility] involving the cervical spine and in speaking with her daughter had a tumor removed. 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 According to notes this included a laminectomy and a posterior fusion. Relevant to the current problem is the fact that the patient's daughter tells me that a year ago her mother was told that there was a problem with her blood and that her hemoglobin and white cell count was low. When she was at [facility] there was some discussion about her blood as well. Following her surgery at some point she received a platelet transfusion suggesting that there is an underlying hematologic disorder. No bone marrow was done. The patient returned to this area and underwent rehabilitation. She was in a rehab center and became acutely ill and was transferred to [facility]. On 03/05/2018 the patient had blood cultures growing E. coli ESBL positive. Patient's daughter tells me that she had a urinary tract infection at [facility] as well. A single blood culture on 03/06 showed staph coagulase negative. Other studies include on 03/05/2018 a fibrinogen level of 392. 03/08/2018 PT 11.4. Radiographic studies-ultrasound of the abdomen and gallbladder 03/04/2018 show a mildly distended gallbladder with echogenic debris 03/03/2018 MRI of the brain shows that the previous subarachnoid hemorrhage has resolved 03/01/2018 CT of the abdomen shows atelectasis or infiltrate in the posterior lung bases. Air in the urinary bladder. 03/07/2018 chest x-ray shows persistent left lower lobe consolidation and pleural effusion. The patient is currently intubated. She is not able to communicate. Her daughter just arrived and was able to provide me with a CBC and platelet count dated 04/13/2017. Hemoglobin 10.4, white count 5300, platelets 191,000. Absolute neutrophil count 4738, absolute lymphocyte count 340. Ferritin 218, B12 504, folate 18. Presently it is my understanding there is no GI bleeding. Past surgical history: 1 appendectomy 10/2013 hysterectomy and bladder lift 3 02/03/2018 laminectomy and posterior fusion cervical spine for removal of benign tumor at [facility]. According to daughter 90% of the tumor was removed. Past medical history 1 E. coli sepsis presently 2 rheumatoid arthritis and lupus. Several years ago the patient was treated with Plaquenil which was stopped due to eye problems and prednisone. 3 diabetes 4 hypertension 5 hypothyroidism 6 anemia 7 subarachnoid hemorrhage associated with hypertension late January 2018 Medications Albuterol Flexeril Pepcid Neurontin Primaxin 500 mg every 6 hours Levothyroxine Lopressor Ditropan Pravastatin Allergies codeine Family history noncontributory Review of systems Provided by daughter. The patient has had a generalized deterioration in health over the past several months. She has had progressive left-sided weakness related to the tumor in the neck. Her left-sided weakness has worsened following her recent surgery. Objective Vital Signs/Intake & Output: Vital Signs 03/07/18 15:00 03/07/18 16:00 03/07/18 17:00 Temperature 98.3 F Pulse Rate 98 H 103 H 102 H Respiratory Rate 28 H 28 H 28 H Blood Pressure 93/57 L 115/67 111/74 Pulse Oximetry 100 100 100 03/07/18 17:25 03/07/18 18:00 03/07/18 19:00 Temperature 98.9 F Pulse Rate 92 H 100 H 118 H Respiratory Rate 28 H 19 14 Blood Pressure 141/74 H 147/88 H Pulse Oximetry 100 100 100 03/07/18 19:52 03/07/18 20:00 03/07/18 21:00 Temperature 100.9 F H Pulse Rate 128 H 125 H Respiratory Rate 28 H 21 8 L Blood Pressure 142/86 H 123/75 Pulse Oximetry 100 100 100 03/07/18 22:00 03/07/18 23:00 03/08/18 00:00 Temperature 100 F H Pulse Rate 130 H 123 H 115 H Respiratory Rate 28 H 28 H 28 H Blood Pressure 92/55 L 76/47 L 74/51 L Pulse Oximetry 100 100 100 03/08/18 00:07 03/08/18 00:30 03/08/18 01:00 Temperature Pulse Rate 127 H 113 H Respiratory Rate 28 H 28 H 28 H Blood Pressure 97/63 L 82/54 L Pulse Oximetry 100 100 100 03/08/18 02:00 03/08/18 03:00 03/08/18 04:00 Temperature 97.5 F L Pulse Rate 114 H 96 H 97 H Respiratory Rate 28 H 28 H 28 H Blood Pressure 84/60 L 90/60 L 99/65 L Pulse Oximetry 100 100 100 03/08/18 04:12 03/08/18 05:00 03/08/18 06:00 Temperature Pulse Rate 99 H 97 H Respiratory Rate 28 H 28 H 26 H Blood Pressure 113/62 140/79 Pulse Oximetry 100 100 100 03/08/18 06:01 03/08/18 07:00 03/08/18 08:00 Temperature 98.6 F 98.6 F Pulse Rate 94 H 105 H 114 H Respiratory Rate 26 H 0 L 28 H Blood Pressure 140/74 144/79 H 151/112 H Pulse Oximetry 100 100 100 03/08/18 08:30 03/08/18 09:00 03/08/18 09:30 Temperature Pulse Rate 131 H 128 H 131 H Respiratory Rate 28 H 28 H 28 H Blood Pressure 149/89 H 133/80 123/76 Pulse Oximetry 100 100 100 03/08/18 10:00 03/08/18 10:30 03/08/18 11:00 Temperature Pulse Rate 132 H 141 H 133 H Respiratory Rate 28 H 28 H 28 H Blood Pressure 125/76 129/81 111/76 Pulse Oximetry 100 100 100 03/08/18 11:30 03/08/18 11:40 03/08/18 12:00 Temperature 97.8 F Pulse Rate 131 H 140 H Respiratory Rate 17 18 19 Blood Pressure 113/74 115/70 Pulse Oximetry 100 100 03/08/18 12:30 03/08/18 13:00 03/08/18 13:30 Temperature Pulse Rate 112 H 101 H 102 H Respiratory Rate 18 18 16 Blood Pressure 120/74 111/66 103/62 Pulse Oximetry 100 100 100 03/08/18 14:00 Temperature Pulse Rate 101 H Respiratory Rate 17 Blood Pressure 103/60 Pulse Oximetry 100 Intake & Output 03/07/18 03/08/18 03/08/18 18:59 06:59 18:59 Intake Total 1215 / 1215 1965 / 1965 Output Total 1050 / 1050 1870 / 1870 Balance 165 / 165 95 / 95 Weight 49.5 kg Intake: IV 540 / 540 300 / 300 Ofirmev Inj 1,000 mg In 100 ml 100 / 100 @ 400 mls/hr IV.SIG Q6H PRN Rx# :[id number] Calcium Chloride Inj 1 GM In NS 100 / 100 Inj 100 ML @ 110 mls/hr IV.SIG ONCE ONE Rx#:[id number] Primaxin Inj 500 MG In NS Inj 200 / 200 200 / 200 100 ML @ 200 mls/hr IV.SIG Q6H BRIAN Rx#:[id number] Potassium Phosphate Inj 30 MMOL 240 / 240 In NS Inj 250 ML @ 42 mls/hr IV.SIG UNSCH PRN Rx#:[id number] Oral 360 / 360 Tube Feeding 435 / 435 745 / 745 Tube Irrigant 240 / 240 360 / 360 Water Bolus Amount 200 / 200 Output: Urine 1050 / 1050 1870 / 1870 Other: Date of Last Bowel Movement 03/07/18 03/07/18 03/07/18 # Bowel Movements 1 1 # Incontinent Bowel Movements 1 Result Diagrams: 03/08/18 11:09 03/08/18 11:09 Laboratory Results: Laboratory Results - last 24 hr 03/06/18 03/07/18 03/07/18 07:41 16:49 23:11 WBC RBC Hgb Hct MCV MCH MCHC RDW Plt Count MPV Prelim Diff (Auto) Neut % (Auto) Lymph % (Auto) [place] % (Auto) Eos % (Auto) Baso % (Auto) Neut # (Auto) Lymph # (Auto) [place] # (Auto) Eos # (Auto) Baso # (Auto) WBC Differential Seg Neuts % (Manual) Band Neuts % (Manual) Lymphocytes % (Manual) Abs Neuts (Manual) Differential Comment Dohle Bodies Platelet Estimate Platelet Morphology Ovalocytes PT INR Fibrinogen Puncture Site Patient Temperature O2 Saturation ABG pH ABG pCO2 ABG pO2 ABG HCO3 ABG O2 Content ABG Base Excess ABG Methemoglobin Memo Test Hemoglobin Carboxyhemoglobin O2 Delivery Device Vent Setting Inspired O2 Critical Value Sodium Potassium Chloride Carbon Dioxide Anion Gap BUN Creatinine Estimated GFR POC Glucose 152 H 136 H Random Glucose Calcium Prot Corrected Calcium Total Bilirubin AST ALT Alkaline Phosphatase Total Protein Albumin Blood Type O Negative Antibody Screen Negative MTS Gel Crossmatch See Detail Bld Prod Order Comment 03/08/18 03/08/18 03/08/18 04:12 04:12 10:40 WBC 4.3 RBC 3.23 L Hgb 10.2 L Hct 29.6 L MCV 91.6 MCH 31.6 MCHC 34.5 RDW 17.4 H Plt Count 26 L MPV 10.9 Prelim Diff (Auto) Neut % (Auto) Lymph % (Auto) [place] % (Auto) Eos % (Auto) Baso % (Auto) Neut # (Auto) Lymph # (Auto) [place] # (Auto) Eos # (Auto) Baso # (Auto) WBC Differential Seg Neuts % (Manual) Band Neuts % (Manual) Lymphocytes % (Manual) Abs Neuts (Manual) Differential Comment Dohle Bodies Platelet Estimate Platelet Morphology Ovalocytes PT INR Fibrinogen Puncture Site Right brachial Patient Temperature 98.6 O2 Saturation 95 ABG pH 7.53 H* ABG pCO2 23 L* ABG pO2 94 ABG HCO3 19 L ABG O2 Content 14.4 ABG Base Excess -3.3 L ABG Methemoglobin 1.4 Memo Test Present Hemoglobin 10.7 L Carboxyhemoglobin 1.3 O2 Delivery Device Ventilator Vent Setting Inspired O2 35 Critical Value Yes Sodium 144 Potassium 3.7 Chloride 113 H Carbon Dioxide 19.9 L Anion Gap 11 BUN 14 Creatinine 0.25 L Estimated GFR Greater than 89 POC Glucose Random Glucose 126 H Calcium 6.9 L* Prot Corrected Calcium 8.5 Total Bilirubin 0.9 AST 35 ALT 15 Alkaline Phosphatase 276 H Total Protein 4.2 L Albumin 1.3 L Blood Type Antibody Screen MTS Gel Crossmatch Bld Prod Order Comment 03/08/18 03/08/18 03/08/18 11:09 11:09 11:09 WBC 5.5 RBC 3.37 L Hgb 10.7 L Hct 31.3 L MCV 92.7 MCH 31.7 MCHC 34.2 RDW 17.6 H Plt Count 31 L MPV 10.1 Prelim Diff (Auto) Slide review pending Neut % (Auto) 91.5 H Lymph % (Auto) 5.2 L [place] % (Auto) 2.3 Eos % (Auto) 0.1 Baso % (Auto) 0.9 Neut # (Auto) 5.0 Lymph # (Auto) 0.3 L [place] # (Auto) 0.1 Eos # (Auto) 0.0 Baso # (Auto) 0.1 WBC Differential Manual diff final Seg Neuts % (Manual) 60 Band Neuts % (Manual) 35 H Lymphocytes % (Manual) 5 L Abs Neuts (Manual) 5.2 Differential Comment . Dohle Bodies Present H Platelet Estimate Low L Platelet Morphology Normal Ovalocytes 1+ H PT 11.4 INR 1.1 Fibrinogen 492 H Puncture Site Patient Temperature O2 Saturation ABG pH ABG pCO2 ABG pO2 ABG HCO3 ABG O2 Content ABG Base Excess ABG Methemoglobin Memo Test Hemoglobin Carboxyhemoglobin O2 Delivery Device Vent Setting Inspired O2 Critical Value Sodium Potassium Chloride Carbon Dioxide Anion Gap BUN Creatinine Estimated GFR POC Glucose Random Glucose Calcium Prot Corrected Calcium Total Bilirubin AST ALT Alkaline Phosphatase Total Protein Albumin Blood Type Antibody Screen MTS Gel Crossmatch Bld Prod Order Comment 03/08/18 03/08/18 11:09 11:51 WBC RBC Hgb Hct MCV MCH MCHC RDW Plt Count MPV Prelim Diff (Auto) Neut % (Auto) Lymph % (Auto) [place] % (Auto) Eos % (Auto) Baso % (Auto) Neut # (Auto) Lymph # (Auto) [place] # (Auto) Eos # (Auto) Baso # (Auto) WBC Differential Seg Neuts % (Manual) Band Neuts % (Manual) Lymphocytes % (Manual) Abs Neuts (Manual) Differential Comment Dohle Bodies Platelet Estimate Platelet Morphology Ovalocytes PT INR Fibrinogen Puncture Site Patient Temperature O2 Saturation ABG pH ABG pCO2 ABG pO2 ABG HCO3 ABG O2 Content ABG Base Excess ABG Methemoglobin Memo Test Hemoglobin Carboxyhemoglobin O2 Delivery Device Vent Setting Inspired O2 Critical Value Sodium 142 Potassium 3.8 Chloride 112 H Carbon Dioxide 19.4 L Anion Gap 11 BUN 14 Creatinine 0.25 L Estimated GFR Greater than 89 POC Glucose 113 H Random Glucose 120 H Calcium 7.5 L Prot Corrected Calcium Total Bilirubin 0.8 AST 32 ALT 16 Alkaline Phosphatase 301 H Total Protein 4.6 L Albumin 1.4 L Blood Type Antibody Screen MTS Gel Crossmatch Bld Prod Order Comment Culture Results: Microbiology 03/07/18 16:00 Gram Stain - Final Sputum - Endotracheal Sputum Culture - Preliminary Heavy growth normal respiratory ramesh at 24 hours 03/05/18 12:55 Aerobic Blood Culture - Preliminary Blood - Peripheral gram negative rods Anaerobic Blood Culture - Preliminary gram negative rods 03/06/18 05:12 Aerobic Blood Culture - Preliminary Blood - Peripheral No growth in 2 days Anaerobic Blood Culture - Preliminary Staphylococcus coag negative 03/05/18 15:33 Aerobic Blood Culture - Preliminary Blood - Peripheral No growth in 3 days Anaerobic Blood Culture - Final Escherichia coli ESBL positive Medications: Active Medications Generic Name Dose Route Start Last Admin Trade Name Freq PRN Reason Stop Dose Admin Acetaminophen 650 mg 03/05/18 00:01 03/07/18 12:23 Tylenol PO 650 mg Q6H PRN Administration PAIN 1-5 AND/OR FEVER > 101F Albuterol 1 ampul 03/05/18 04:00 03/08/18 04:12 Duoneb Neb (Brian) NEB 1 ampul Q6HR NEB BRIAN Administration Cyclobenzaprine HCl 5 mg 03/05/18 09:00 03/08/18 12:10 Flexeril PO 5 mg TID BRIAN Administration Famotidine 20 mg 03/05/18 09:00 03/08/18 08:01 Pepcid PO 20 mg BID BRIAN Administration Gabapentin 600 mg 03/05/18 09:00 03/08/18 12:10 Neurontin PO 600 mg TID BRIAN Administration Acetaminophen 1,000 mg in 100 mls @ 400 mls/hr 03/05/18 00:01 03/07/18 21:48 Ofirmev Inj IV.SIG Infused Q6H PRN Infusion FEVER>101degF Imipenem/Cilastatin Sodium 500 100 mls @ 200 mls/hr 03/05/18 04:00 03/08/18 09:40 mg/ Sodium Chloride IV.SIG 200 mls/hr Q6H BRIAN Administration Potassium Phosphate 30 mmol/ 260 mls @ 42 mls/hr 03/07/18 06:54 03/07/18 17: 07 Sodium Chloride IV.SIG 42 mls/hr UNSCH PRN Infusion SEE LABEL COMMENTS Potassium Phosphate 30 mmol/ 260 mls @ 42 mls/hr 03/05/18 00:01 03/06/18 08: 21 Sodium Chloride IV.SIG 0 mls/hr UNSCH PRN Infusion SEE LABEL COMMENTS Fentanyl 2,500 mcg in 250 mls @ 5 mls/hr 03/05/18 00:01 03/06/18 08:21 Fentanyl 10 Mcg/Ml Premix Drip IV.SIG 0 mcg/hr TITRATE PRN 0 mls/hr Per Protocol Titration Protocol 50 MCG/HR Insulin Human Regular 1 units 03/05/18 00:00 03/08/18 06:02 Novolin R Supplemental Scale SQ Not Given Q6HR BRIAN Protocol Levothyroxine Sodium 50 mcg 03/05/18 06:00 03/08/18 06:09 Synthroid PO 50 mcg DAILY@0600 BRIAN Administration Metoprolol Tartrate 25 mg 03/08/18 10:15 03/08/18 12:09 Lopressor PO 25 mg BID BRIAN Administration Oxybutynin Chloride 5 mg 03/05/18 06:00 03/08/18 06:09 Ditropan PO 5 mg Q8HR BRIAN Administration Pravastatin Sodium 20 mg 03/05/18 09:00 03/08/18 08:01 Pravachol PO 20 mg DAILY BRIAN Administration Sodium Chloride 0 ml 03/05/18 09:00 03/08/18 08:03 Ns Flush IV.FLUSH 10 ml DAILY BRIAN Administration Protocol Objective Remarks: GENERAL: Frail intubated female, is being fed by oral gastric tube. Has a cervical collar. Barely responsive. SKIN: Warm and dry. HEAD: Normocephalic. EYES: No scleral icterus. No injection or drainage. Neck has cervical collar LYMPHATIC: No adenopathy. CARDIOVASCULAR: Regular rate and rhythm without murmurs. RESPIRATORY: Decreased sounds at the bases.. GASTROINTESTINAL: Abdomen soft, non-tender, nondistended. EXTREMITIES: No cyanosis, or edema. MUSCULOSKELETAL: Has swelling of multiple joints of the hands and feet do not appear normal. This is consistent with her history of rheumatoid arthritis and lupus. NEUROLOGICAL: Minimal movement. May be decreased on the left side.. PSYCHIATRIC: No effective communication possible. Assessment/Plan - Plan 1: The patient presents with severe life-threatening pancytopenia. This is most likely a result of the E. coli sepsis which occurred due to the presence of her Coleman catheter. I suspect that her counts will improve over time as the infection resolves. There is a previous history of anemia with documentation as indicated above. This may be a result of chronic illness as she has rheumatoid arthritis and lupus. Her joints are not normal and I suspect that her disease is active. I am surprised to see this degree of thrombocytopenia but this may be due to the infection and sepsis. I am not sure why she received a platelet transfusion at some point after her surgery at [facility]. If the patient recovers and has significant residual thrombocytopenia, a low white count, and significant anemia, I would recommend a bone marrow aspirate and biopsy. At this point she is acutely ill and needs to recover from her septic shock. Will repeat B12, folic acid, and iron studies but I do not believe that they will be helpful and they were normal a year ago. For the present time would provide supportive care with blood products as needed and if life-threatening thrombocytopenia platelet transfusions. At the moment there is no need for platelet transfusion.
[2018-03-08 19:43] LABS: Bacteria,Urine Rare /hpf; Bilirubin,Urine Negative (Negative); Clarity,Urine Clear (Clear); Color,Urine Yellow (Yellw/Straw); Glucose,Urine (UA) 50 mg/dL (Negative); Leukocyte Esterase,Urine Negative (Negative); Mucus,Urine Few /lpf (Occasional); Nitrite,Urine Negative (Negative); Specific Gravity,Urine 1.014 (1.002-1.035); Urobilinogen,Urine 4 or Greater mg/dL (Less than 2)
[2018-03-08 21:57] LABS: Folate 10.7 ng/mL (3.1-17.5)
[2018-03-09] MEDS: Insulin NovoLIN Regular Correctional Sugar Inj SQ SCH ×4 (00:49→18:38)
[2018-03-09 05:18] LABS: Hematocrit 31.6 % (35.0-46.0); Hemoglobin 10.7 gm/dL (11.6-15.3); Mean Corpuscular HGB Conc 33.7 % (32.0-36.0); Mean Corpuscular Hemoglobin 31.6 pg (27.0-34.0); Mean Corpuscular Volume 93.6 fL (80.0-100.0); Mean Platelet Volume 10.9 fL (7.0-11.0); Platelet Count 34 th/mm3 (150-450); Red Blood Count 3.38 mil/mm3 (4.00-5.30); White Blood Count 4.8 th/mm3 (4.0-11.0)
[2018-03-09 05:37] LABS: Alanine Aminotransferase 19 U/L (10-53); Albumin 1.4 g/dL (3.4-5.0); Alkaline Phosphatase 352 U/L (45-117); Anion Gap 10 meq/L (5-15); Aspartate Aminotransferase 36 U/L (15-37); Blood Urea Nitrogen 13 mg/dL (7-18); Calcium 7.2 mg/dL (8.5-10.1); Chloride 112 meq/L (98-107); Glomerular Filtration Rate Greater Than 89 mL/min (>89); Glucose,Random 111 mg/dL (74-106); Potassium 4.1 meq/L (3.5-5.1); Sodium 144 meq/L (136-145); Total Protein 4.8 g/dL (6.4-8.2)
[2018-03-09] MEDS: Levothyroxine 50 MCG Tablet PO SCH (06:38)
--- NOTE | 2018-03-09 08:59 | P.PNCC ---
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 she was sent to [facility] for procedural management of these. She was then transferred to [place] [facility] on 02/28. Please see the dictated hospitalist consult note on 02/28 on admission to [place] for a detailed record of the hospital course while at [facility]. Today, she was found to be very tachycardic in the 160s and hypotensive with sbp in the 70s. She was emergently transferred to the ICU after rapid response was called for evaluation and management of her hypotension. Of note, she did not have iv access. I met her on arrival to the ICU. I placed 2 18g piv. 12-lead EKG confirms sinus tachycardia. I due to the fast rate, I gave 6mg adenosine to slow it down diagnostically, and it slowed down temporarily to a HR in the 70s, confirming sinus rhythm. I performed bedside critical care echocardiography which demonstrates grossly preserve biventricular function. in particular, RV is decompressed and well-functioning. IVC is completely collapsable. no pericardial effusion. I gave her 3L NS bolus ivf which improved her SBP to 110s and decreased her HR to 110s. She is afebrile. stat CBC shows anemia (history of recent femoral artery pseudoaneurysm), CMP demonstrates elevated AST and Alk phos, elevated lactate at 3.7. Cr elevated above baseline. Patient denies any complaints to me. she is mostly montserratian speaking, but communicates in basic latvian. specifically denies chest pain, shortness of breath, fever/chills, nausea, vomiting, abdominal pain, constipation, diarrhea. I discussed with her family, she has been eating and drinking well even up to today. ROS otherwise negative. 03/02 Patient is awake lying in bed in TRAV. On room air oxygen. T:103.2 this morning She was hypotensive overnight initially placed on Neosyn now off pressor with BP 147/67 with MAP 96. 03/03 No events overnight. Seems more awake and alert this morning. T: 100.2 at midnight. BP and HR better ( 119/58 with MAP 83mmHg). On no pressors. BC from 03/01: E.coli ESBL 6/30: clinically improving. slightly tachycardic. on appropriate therapy for her ESBL e. coli. denies complaints. hemodynamically stable. on room air. 03/05: Patient developed worsening respiratory distress yesterday and required endotracheal intubation and was placed on mechanical ventilation. Hypotension overnight for which patient was started on phenylephrine. Developed A. fib with RVR and was started on amiodarone gtt. 03/06 Patient remains sedated and intubated. Tmax 101.6, On Amio drip. 03/07 Patient remains intubated off sedation. s/p transfusion 2u PRBC yesterday. Tolerating tube feeds. Afebrile. Off Amio drip. 03/08 Patient remains intubated. T:100.9 last night. 03/09 No events overnight. Tolerated CPAP for approx 4 hrs yesterday. Off sedation. Afebrile. Objective Vital Signs / I&O: Vital Signs 03/08/18 09:00 03/08/18 09:30 03/08/18 10:00 Temperature Pulse Rate 128 H 131 H 132 H Respiratory Rate 28 H 28 H 28 H Blood Pressure 133/80 123/76 125/76 Pulse Oximetry 100 100 100 03/08/18 10:30 03/08/18 11:00 03/08/18 11:30 Temperature Pulse Rate 141 H 133 H 131 H Respiratory Rate 28 H 28 H 17 Blood Pressure 129/81 111/76 113/74 Pulse Oximetry 100 100 100 03/08/18 11:40 03/08/18 12:00 03/08/18 12:30 Temperature 97.8 F Pulse Rate 140 H 112 H Respiratory Rate 18 19 18 Blood Pressure 115/70 120/74 Pulse Oximetry 100 100 03/08/18 13:00 03/08/18 13:30 03/08/18 14:00 Temperature Pulse Rate 101 H 102 H 101 H Respiratory Rate 18 16 17 Blood Pressure 111/66 103/62 103/60 Pulse Oximetry 100 100 100 03/08/18 14:30 03/08/18 15:00 03/08/18 15:22 Temperature Pulse Rate 101 H 123 H Respiratory Rate 17 28 H 18 Blood Pressure 109/64 135/86 Pulse Oximetry 100 100 03/08/18 15:30 03/08/18 16:00 03/08/18 16:30 Temperature 98.3 F Pulse Rate 114 H 121 H 120 H Respiratory Rate 18 20 21 Blood Pressure 128/75 129/89 139/81 Pulse Oximetry 100 100 100 03/08/18 17:00 03/08/18 17:30 03/08/18 18:00 Temperature Pulse Rate 119 H 129 H 126 H Respiratory Rate 21 21 20 Blood Pressure 140/84 143/87 H 141/79 H Pulse Oximetry 100 100 100 03/08/18 18:30 03/08/18 19:00 03/08/18 19:27 Temperature 99.4 F Pulse Rate 129 H 127 H Respiratory Rate 20 21 20 Blood Pressure 136/79 130/76 Pulse Oximetry 100 100 100 03/08/18 19:30 03/08/18 20:00 03/08/18 20:30 Temperature Pulse Rate 127 H 126 H 130 H Respiratory Rate 23 20 21 Blood Pressure 125/72 117/71 125/78 Pulse Oximetry 100 100 100 03/08/18 21:00 03/08/18 21:30 03/08/18 21:34 Temperature Pulse Rate 125 H 104 H 103 H Respiratory Rate 20 19 19 Blood Pressure 110/75 118/71 Pulse Oximetry 100 100 03/08/18 22:00 03/08/18 22:19 03/08/18 22:30 Temperature Pulse Rate 111 H 109 H Respiratory Rate 18 18 18 Blood Pressure 113/71 112/67 Pulse Oximetry 100 100 100 03/08/18 23:00 03/08/18 23:30 03/09/18 00:00 Temperature 99.0 F Pulse Rate 115 H 106 H 106 H Respiratory Rate 19 18 18 Blood Pressure 129/70 122/71 119/70 Pulse Oximetry 100 100 100 03/09/18 00:31 03/09/18 01:00 03/09/18 01:27 Temperature Pulse Rate 121 H 104 H Respiratory Rate 21 18 18 Blood Pressure 162/79 H 131/71 Pulse Oximetry 100 100 100 03/09/18 01:30 03/09/18 02:00 03/09/18 02:30 Temperature Pulse Rate 106 H 103 H 101 H Respiratory Rate 19 20 20 Blood Pressure 130/77 132/76 126/68 Pulse Oximetry 100 100 100 03/09/18 03:00 03/09/18 03:27 03/09/18 03:30 Temperature Pulse Rate 103 H 102 H 136 H Respiratory Rate 20 23 27 H Blood Pressure 128/73 159/99 H Pulse Oximetry 100 96 03/09/18 04:00 03/09/18 04:23 03/09/18 04:31 Temperature 99.7 F H Pulse Rate 106 H 100 H Respiratory Rate 22 23 34 H Blood Pressure 131/94 H 145/85 H Pulse Oximetry 100 100 100 03/09/18 05:00 03/09/18 06:00 03/09/18 07:00 Temperature Pulse Rate 99 H 114 H 123 H Respiratory Rate 32 H 31 H 25 H Blood Pressure 158/79 H 155/84 H 143/93 H Pulse Oximetry 100 100 100 03/09/18 07:52 Temperature Pulse Rate 109 H Respiratory Rate 34 H Blood Pressure Pulse Oximetry 100 Intake & Output 03/08/18 03/09/18 03/09/18 18:59 06:59 18:59 Intake Total 960 / 960 740 / 740 Output Total 1700 / 1700 1600 / 1600 Balance -740 / -740 -860 / -860 Weight 59.4 kg Intake: IV 200 / 200 200 / 200 Primaxin Inj 500 MG In NS Inj 200 / 200 200 / 200 100 ML @ 200 mls/hr IV.SIG Q6H KARINA Rx#:[id number] Oral 0 / 0 Tube Feeding 520 / 520 490 / 490 Tube Irrigant 240 / 240 Water Bolus Amount 50 / 50 Output: Urine 1600 / 1600 Urine Amount (Catheter) 1700 / 1700 Straight 1700 / 1700 Other: Date of Last Bowel Movement 03/08/18 03/09/18 # Bowel Movements 2 # Incontinent Bowel Movements 2 Result Diagrams: 03/09/18 04:33 03/09/18 04:33 Objective Remarks: GENERAL: Patient is 62 yo intubated and sedated SKIN: Warm and dry. HEAD: Normocephalic. EYES: No scleral icterus. No injection or drainage. NECK: Supple, trachea midline. No JVD or lymphadenopathy. CARDIOVASCULAR: Tachycardic without murmurs, gallops, or rubs. RESPIRATORY: Breath sounds equal bilaterally. No accessory muscle use. GASTROINTESTINAL: Abdomen soft, non-tender, nondistended. MUSCULOSKELETAL: No cyanosis, or edema. Neuro: Intubated, Assessment and Plan - Assessment and Plan Plan: A/P Assessment and Plan Plan by system Neuro: Off sedation. Monitor neuro status CT brain: Negative or acute process MRI brain: previously noted subarachnoid hemorrhage overlying the occipital lobes has resolved. Tiny trace of residual hemorrhage in the posterior lateral ventricles. Stable chronic white matter changes. No new or acute intracranial process. Pulm: ARDS Continue vent support keep sats >92% Bronchodilators, ICU vent bundle. CTA chest: No PE, minimal consolidative changes left base Check CXR today, SBT daily as amador CV: A. fib Increase Lopressor 50mg Q12 Monitor HR and BP keep MAP>65mmHg. Pravachol 20mg daily -Elevated troponin, type II demand ischemia NSTEMI - Lactic acid cleared 1.9- Echo 03/06 EF 50-55% -will not anticoagulate at this time given risk/benefit with recent head bleed Cortisol level: 41 Cards is following : Urinary retention Monitor renal function, electrolytes replacement per protocol. GI: Elevated AST, Alk phos Monitor LFT's, CT abd/pelvis without evidence of overt acute cholecystitis On tube feeds- Glucerna 1.5with goal rate 45ml/hr ID: Gram negative bacteremia Urinary tract infection s/p Septic shock Continue with abx per ID ( Imipenem) ,Monitor for signs of infections ( Fever, WBC) 03/07: Sputum cx: normal resp ramesh 03/08 BC: NGTD 03/06 BC Coag negative staph 03/05 BC: E.coli bacteremia 03/01 BC: E.coli ESBL 03/01 Urine cx: GNR Heme: Anemia Thrombocytopenia likely 2nd sepsis -Monitor CBC, s/p transfuse 2u PRBC 03/06 Heme is following- Dr. Miller Follow up on Hep PLT ab Sacral decubitus - present on admission - does not appear grossly infected - likely not the source of infection - management per wound care nurse Endo: SSI if needed for glycemic control On Synthroid 50mcg daily,. TSH: 0.47 GI prophylaxis- On pepcid 20mg BID DVT prophylaxis- SCD, hold Heparin Sq due to recent [employer] bleed in January ( MRI brain 01/29) and severe thrombocytopenia Lines: peripheral IV's Level 3
--- NOTE | 2018-03-09 09:15 | XR ---
EXAM DATE: 03/09/2018 9:12 AM EDT AGE/SEX: 62 years / Female INDICATIONS: Shortness of breath. CLINICAL DATA: This is the patient's subsequent encounter. Patient reports that signs and symptoms h ave been present for 3 days and indicates a pain score of Nonresponsive. MEDICAL/SURGICAL HISTORY: . Diabetes mellitus type II. Hypertension. . Fusion, cervical. COMPARISON: [facility], CHEST 1V SINGLE AP, 03/07/2018. . FINDINGS: Stable ETT and NGT. Left subclavian central line has been removed. Persistent pleural-parenchymal opa cities in the left lower lung zone. Continued improved aeration of the left upper lung zones. Minimal airspace disease in the right lower lung zone unchanged. Cardiomegaly saw contours are stable. Remai nder of the exam is unchanged. CONCLUSION: 1. Interval removal of left subclavian central line. 2. Stable small left pleural effusion and associated airspace disease in the left lower lobe. 3. Continued improving aeration of the left upper lung zone. 4. Stable mild airspace disease in the right lower lung zone. Electronically signed by: Harrison Edmonds MD 03/09/2018 9:14 AM EDT
[2018-03-09] MEDS: Metoprolol Tartrate 50 MG Tablet PO SCH ×2 (11:25→20:47)
[2018-03-09] MEDS: Famotidine 20 MG Tablet PO SCH ×2 (11:25→20:47)
[2018-03-09] MEDS: Gabapentin 300 MG Capsule PO SCH ×3 (11:25→18:39)
[2018-03-09] MEDS: Acetaminophen 325 MG Tablet PO PRN (13:35)
[2018-03-09] MEDS ORDERED: Metoprolol Inj 5 MG/5 ML Vial IV.PUSH ONE (15:03)
[2018-03-09] MEDS: Collagenase Oint 30 GM Tube TOPICAL SCH (16:44)
[2018-03-09 18:18] LABS: Bilirubin,Urine Negative (Negative); Clarity,Urine Clear (Clear); Color,Urine Straw (Yellw/Straw); Glucose,Urine (UA) 50 mg/dL (Negative); Leukocyte Esterase,Urine Negative (Negative); Mucus,Urine Few /lpf (Occasional); Nitrite,Urine Negative (Negative); Specific Gravity,Urine 1.006 (1.002-1.035); Squamous Epithelial Cell,Urine <1 /hpf (0-5)
[2018-03-10] MEDS: Insulin NovoLIN Regular Correctional Sugar Inj SQ SCH ×4 (00:44→12:40)
[2018-03-10] MEDS: Levothyroxine 50 MCG Tablet PO SCH (05:14)
[2018-03-10] MEDS ORDERED: Metoprolol Inj 5 MG/5 ML Vial IV.PUSH SCH (05:15)
[2018-03-10 05:31] LABS: Baso % (Auto) 0.5 % (0.0-2.0); Eos % (Auto) 0.1 % (0.0-4.0); Hematocrit 32.4 % (35.0-46.0); Lymph # (Auto) 0.6 th/mm3 (1.0-4.8); Lymph % (Auto) 15.4 % (9.0-44.0); Mean Corpuscular Hemoglobin 31.2 pg (27.0-34.0); Mean Corpuscular Volume 91.8 fL (80.0-100.0); Mean Platelet Volume 10.4 fL (7.0-11.0); Mono # (Auto) 0.2 th/mm3 (0.0-0.9); Mono % (Auto) 4.6 % (0.0-8.0); Neut # (Auto) 3.3 th/mm3 (1.8-7.7); Neut % (Auto) 79.4 % (16.0-70.0); Platelet Count 46 th/mm3 (150-450); Red Blood Count 3.53 mil/mm3 (4.00-5.30); Red Cell Distribution Width 17.6 % (11.6-17.2); White Blood Count 4.1 th/mm3 (4.0-11.0)
[2018-03-10 06:04] LABS: Alanine Aminotransferase 25 U/L (10-53); Albumin 1.5 g/dL (3.4-5.0); Anion Gap 12 meq/L (5-15); Aspartate Aminotransferase 53 U/L (15-37); Blood Urea Nitrogen 15 mg/dL (7-18); Calcium 7.5 mg/dL (8.5-10.1); Carbon Dioxide 22.5 meq/L (21.0-32.0); Chloride 108 meq/L (98-107); Glomerular Filtration Rate Greater Than 89 mL/min (>89); Glucose,Random 124 mg/dL (74-106); Potassium 3.4 meq/L (3.5-5.1); Sodium 142 meq/L (136-145)
[2018-03-10 06:07] LABS: Alkaline Phosphatase 400 U/L (45-117); Total Protein 5.1 g/dL (6.4-8.2)
[2018-03-10] MEDS: Potassium Chlor 20 mEq Premix 20 MEQ/100 ML PIGGYBACK IV.SIG PRN ×2 (07:20→12:41)
[2018-03-10 07:43] LABS: Lymphocytes 1 % (9-44); Monocytes 4 % (0-8); Plasma Cells 1 % (0-0)
[2018-03-10 07:44] LABS: Dohle Bodies Present; RBC Morphology Normal (Normal)
[2018-03-10 07:45] LABS: Platelet Morphology Normal (Normal)
[2018-03-10] MEDS: Famotidine 20 MG Tablet PO SCH ×2 (08:05→21:03)
[2018-03-10] MEDS: Gabapentin 300 MG Capsule PO SCH ×3 (08:05→18:06)
[2018-03-10] MEDS: Metoprolol Tartrate 50 MG Tablet PO SCH ×2 (08:05→21:03)
--- NOTE | 2018-03-10 09:57 | P.PNCC ---
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 she was sent to [facility] for procedural management of these. She was then transferred to [place] [facility] on 02/28. Please see the dictated hospitalist consult note on 02/28 on admission to [place] for a detailed record of the hospital course while at [facility]. Today, she was found to be very tachycardic in the 160s and hypotensive with sbp in the 70s. She was emergently transferred to the ICU after rapid response was called for evaluation and management of her hypotension. Of note, she did not have iv access. I met her on arrival to the ICU. I placed 2 18g piv. 12-lead EKG confirms sinus tachycardia. I due to the fast rate, I gave 6mg adenosine to slow it down diagnostically, and it slowed down temporarily to a HR in the 70s, confirming sinus rhythm. I performed bedside critical care echocardiography which demonstrates grossly preserve biventricular function. in particular, RV is decompressed and well-functioning. IVC is completely collapsable. no pericardial effusion. I gave her 3L NS bolus ivf which improved her SBP to 110s and decreased her HR to 110s. She is afebrile. stat CBC shows anemia (history of recent femoral artery pseudoaneurysm), CMP demonstrates elevated AST and Alk phos, elevated lactate at 3.7. Cr elevated above baseline. Patient denies any complaints to me. she is mostly namibian speaking, but communicates in basic croatian. specifically denies chest pain, shortness of breath, fever/chills, nausea, vomiting, abdominal pain, constipation, diarrhea. I discussed with her family, she has been eating and drinking well even up to today. ROS otherwise negative. 03/02 Patient is awake lying in bed in TRAV. On room air oxygen. T:103.2 this morning She was hypotensive overnight initially placed on Neosyn now off pressor with BP 147/67 with MAP 96. 03/03 No events overnight. Seems more awake and alert this morning. T: 100.2 at midnight. BP and HR better ( 119/58 with MAP 83mmHg). On no pressors. BC from 03/01: E.coli ESBL 6/30: clinically improving. slightly tachycardic. on appropriate therapy for her ESBL e. coli. denies complaints. hemodynamically stable. on room air. 03/05: Patient developed worsening respiratory distress yesterday and required endotracheal intubation and was placed on mechanical ventilation. Hypotension overnight for which patient was started on phenylephrine. Developed A. fib with RVR and was started on amiodarone gtt. 03/06 Patient remains sedated and intubated. Tmax 101.6, On Amio drip. 03/07 Patient remains intubated off sedation. s/p transfusion 2u PRBC yesterday. Tolerating tube feeds. Afebrile. Off Amio drip. 03/08 Patient remains intubated. T:100.9 last night. 03/09 No events overnight. Tolerated CPAP for approx 4 hrs yesterday. Off sedation. Afebrile. 03/10 No events overnight T:100.1 at 4am, Awake, patient was on CPAP for short time yesterday and placed back on PRVC mode for low TV and tachycardia. Objective Vital Signs / I&O: Vital Signs 03/09/18 10:55 03/09/18 11:30 03/09/18 12:00 Temperature 100.8 F H Pulse Rate 107 H 106 H Respiratory Rate 26 H 27 H 27 H Blood Pressure 126/71 117/78 Pulse Oximetry 100 100 100 03/09/18 12:29 03/09/18 12:31 03/09/18 13:00 Temperature 100.8 F H Pulse Rate 114 H 115 H 129 H Respiratory Rate 29 H 30 H 30 H Blood Pressure 117/74 126/79 Pulse Oximetry 100 100 100 03/09/18 13:01 03/09/18 13:30 03/09/18 14:00 Temperature 103.0 F H Pulse Rate 130 H 133 H 138 H Respiratory Rate 32 H 32 H 31 H Blood Pressure 114/83 115/71 118/93 H Pulse Oximetry 100 100 100 03/09/18 14:30 03/09/18 15:00 03/09/18 15:12 Temperature 100.8 F H Pulse Rate 136 H 141 H Respiratory Rate 32 H 32 H 27 H Blood Pressure 115/72 99/60 L Pulse Oximetry 100 100 100 03/09/18 15:17 03/09/18 15:30 03/09/18 16:00 Temperature 100.3 F H Pulse Rate 141 H 130 H 127 H Respiratory Rate 30 H 30 H 29 H Blood Pressure 131/85 122/76 111/82 Pulse Oximetry 100 100 100 03/09/18 16:30 03/09/18 17:00 03/09/18 17:30 Temperature 100.2 F H Pulse Rate 125 H 118 H 115 H Respiratory Rate 28 H 27 H 27 H Blood Pressure 115/74 97/56 L 87/55 L Pulse Oximetry 100 100 100 03/09/18 17:32 03/09/18 18:00 03/09/18 18:30 Temperature Pulse Rate 122 H 112 H 110 H Respiratory Rate 25 H 28 H 28 H Blood Pressure 99/60 L 96/61 L 109/69 Pulse Oximetry 100 100 100 03/09/18 19:00 03/09/18 19:30 03/09/18 20:00 Temperature 97.6 F Pulse Rate 107 H 108 H 105 H Respiratory Rate 27 H 27 H 27 H Blood Pressure 113/73 117/73 108/71 Pulse Oximetry 100 100 100 03/09/18 20:11 03/09/18 20:30 03/09/18 21:00 Temperature Pulse Rate 110 H 102 H Respiratory Rate 26 H 28 H 27 H Blood Pressure 113/77 121/76 Pulse Oximetry 100 100 100 03/09/18 21:30 03/09/18 22:00 03/09/18 22:30 Temperature Pulse Rate 87 85 87 Respiratory Rate 27 H 28 H 29 H Blood Pressure 118/72 118/72 120/70 Pulse Oximetry 100 100 100 03/09/18 23:00 03/09/18 23:30 03/09/18 23:56 Temperature Pulse Rate 88 93 H 101 H Respiratory Rate 28 H 27 H 28 H Blood Pressure 134/75 132/78 Pulse Oximetry 100 100 03/10/18 00:00 03/10/18 00:06 03/10/18 00:30 Temperature 98.9 F Pulse Rate 111 H 103 H Respiratory Rate 31 H 26 H 32 H Blood Pressure 148/94 H 148/87 H Pulse Oximetry 100 100 100 03/10/18 01:00 03/10/18 01:30 03/10/18 02:00 Temperature Pulse Rate 121 H 119 H 123 H Respiratory Rate 33 H 28 H 22 Blood Pressure 164/98 H 167/94 H 160/92 H Pulse Oximetry 100 100 100 03/10/18 02:30 03/10/18 03:00 03/10/18 03:30 Temperature Pulse Rate 126 H 130 H 133 H Respiratory Rate 20 21 21 Blood Pressure 157/85 H 136/79 134/79 Pulse Oximetry 100 100 100 03/10/18 04:00 03/10/18 04:30 03/10/18 05:00 Temperature 100.1 F H Pulse Rate 129 H 134 H 132 H Respiratory Rate 21 20 20 Blood Pressure 127/83 135/78 132/75 Pulse Oximetry 100 100 100 03/10/18 05:30 03/10/18 06:00 03/10/18 06:30 Temperature Pulse Rate 124 H 122 H 125 H Respiratory Rate 19 19 19 Blood Pressure 127/75 126/73 128/77 Pulse Oximetry 100 100 100 03/10/18 07:00 03/10/18 07:13 03/10/18 07:30 Temperature Pulse Rate 125 H 127 H Respiratory Rate 21 25 H 20 Blood Pressure 133/79 132/80 Pulse Oximetry 100 100 100 03/10/18 08:00 03/10/18 08:30 03/10/18 09:00 Temperature 98.7 F Pulse Rate 127 H 121 H 111 H Respiratory Rate 22 20 19 Blood Pressure 134/82 135/81 131/80 Pulse Oximetry 100 100 100 Intake & Output 03/09/18 03/10/18 03/10/18 18:59 06:59 18:59 Intake Total 995 / 995 649 / 649 Output Total 2600 / 2600 Balance 995 / 995 -1950 / -1950 Weight 59.4 kg Intake: IV 300 / 300 200 / 200 Primaxin Inj 500 MG In NS Inj 300 / 300 200 / 200 100 ML @ 200 mls/hr IV.SIG Q6H KARINA Rx#:[id number] Tube Feeding 455 / 455 449 / 449 Water Bolus Amount 240 / 240 Output: Urine 2600 / 2600 Other: Date of Last Bowel Movement 03/09/18 03/09/18 03/09/18 Result Diagrams: 03/10/18 05:15 03/10/18 05:15 Objective Remarks: GENERAL: Patient is 62 yo intubated and sedated SKIN: Warm and dry. HEAD: Normocephalic. EYES: No scleral icterus. No injection or drainage. NECK: Supple, trachea midline. No JVD or lymphadenopathy. CARDIOVASCULAR: Tachycardic without murmurs, gallops, or rubs. RESPIRATORY: Breath sounds equal bilaterally. No accessory muscle use. GASTROINTESTINAL: Abdomen soft, non-tender, nondistended. MUSCULOSKELETAL: No cyanosis, or edema. Neuro: Intubated, Assessment and Plan - Assessment and Plan Plan: A/P Assessment and Plan Plan by system Neuro: Off sedation. Monitor neuro status CT brain: Negative or acute process MRI brain: previously noted subarachnoid hemorrhage overlying the occipital lobes has resolved. Tiny trace of residual hemorrhage in the posterior lateral ventricles. Stable chronic white matter changes. No new or acute intracranial process. Pulm: ARDS Continue vent support keep sats >92% Bronchodilators, ICU vent bundle. CTA chest: No PE, minimal consolidative changes left base SBT daily as amador CV: A. fib On Lopressor 50mg Q12 Monitor HR and BP keep MAP>65mmHg. Pravachol 20mg daily -Elevated troponin, type II demand ischemia NSTEMI - Lactic acid cleared 1.9- Echo 03/06 EF 50-55% -will not anticoagulate at this time given risk/benefit with recent head bleed Cortisol level: 41 Cards is following : Urinary retention Monitor renal function, electrolytes replacement per protocol. Will need K replacement today GI: Elevated AST, Alk phos Monitor LFT's, CT abd/pelvis without evidence of overt acute cholecystitis On tube feeds- Glucerna 1.5with goal rate 45ml/hr ID: Gram negative bacteremia Urinary tract infection s/p Septic shock Continue with abx per ID ( Imipenem) ,Monitor for signs of infections ( Fever, WBC) 03/07: Sputum cx: normal resp ramesh 03/08, 03/09 BC: NGTD 03/06 BC Coag negative staph 03/05 BC: E.coli bacteremia 03/01 BC: E.coli ESBL 03/01 Urine cx: GNR Heme: Anemia Thrombocytopenia likely 2nd sepsis -Monitor CBC, s/p transfuse 2u PRBC 03/06 Heme is following- Dr. Miller Hep PLT ab negative Sacral decubitus - present on admission - does not appear grossly infected - likely not the source of infection - management per wound care nurse Endo: SSI if needed for glycemic control On Synthroid 50mcg daily,. TSH: 0.47 GI prophylaxis- On pepcid 20mg BID DVT prophylaxis- SCD, hold Heparin Sq due to recent [employer] bleed in January ( MRI brain 01/29) and severe thrombocytopenia Lines: peripheral IV's Level 3
[2018-03-10] MEDS ORDERED: Vancomycin Inj 1 GM/200 ML PIGGYBACK IV.SIG ONE (13:04)
--- NOTE | 2018-03-10 13:04 | P.PNID ---
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 she was sent to [facility] 01/30 for procedural management of these. Her stay at [facility] was complicated by sepsis, and she had E. coli ESBL positive UTI , but the blood cultures were negative. She was then transferred to [facility] on 02/04. Today, she was found to be very tachycardic in the 160s and hypotensive with sbp in the 70s. She was emergently transferred to the ICU 03/01 , after rapid response was called for evaluation and management of her hypotension. At [facility], she had urine culture from [facility] that has E. coli ESBL positive Notes reviewed Febrile yesterday Repeat C/S done, pending On the vent WBC better Platelets low, no DIC Chest x-ray with improving infiltrates Blood culture with E. coli ESBL positive Urine culture with E. coli ESBL positive Last (+) BC 03/05 One BC with Coag Neg Staph, likely contaminant Creatinine okay CT of the abdomen and pelvis did not show any hydronephrosis Antibiotics: Primaxin Lines: Central line removed Past Medical History: Diabetes mellitus, hypertension, hypothyroidism, systemic lupus erythematosus, rheumatoid arthritis, anemia, recent subarachnoid hemorrhage, C6 mass resection, hysterectomy, bladder sling, appendectomy, C4-C7 laminectomy, C4-T1 posterior fusion. Allergies/Adverse Reactions: Allergies codeine Allergy (Intermediate, Verified 01/24/18 17:12) nitroglycerin Adverse Reaction (Severe, Verified 01/25/18 09:14) Nausea/Vomiting Objective Vital Signs 03/09/18 13:00 03/09/18 13:01 03/09/18 13:30 Temperature Pulse Rate 129 H 130 H 133 H Respiratory Rate 30 H 32 H 32 H Blood Pressure 114/83 115/71 Pulse Oximetry 100 100 100 03/09/18 14:00 03/09/18 14:30 03/09/18 15:00 Temperature 103.0 F H 100.8 F H Pulse Rate 138 H 136 H 141 H Respiratory Rate 31 H 32 H 32 H Blood Pressure 118/93 H 115/72 99/60 L Pulse Oximetry 100 100 100 03/09/18 15:12 03/09/18 15:17 03/09/18 15:30 Temperature Pulse Rate 141 H 130 H Respiratory Rate 27 H 30 H 30 H Blood Pressure 131/85 122/76 Pulse Oximetry 100 100 100 03/09/18 16:00 03/09/18 16:30 03/09/18 17:00 Temperature 100.3 F H 100.2 F H Pulse Rate 127 H 125 H 118 H Respiratory Rate 29 H 28 H 27 H Blood Pressure 111/82 115/74 97/56 L Pulse Oximetry 100 100 100 03/09/18 17:30 03/09/18 17:32 03/09/18 18:00 Temperature Pulse Rate 115 H 122 H 112 H Respiratory Rate 27 H 25 H 28 H Blood Pressure 87/55 L 99/60 L 96/61 L Pulse Oximetry 100 100 100 03/09/18 18:30 03/09/18 19:00 03/09/18 19:30 Temperature Pulse Rate 110 H 107 H 108 H Respiratory Rate 28 H 27 H 27 H Blood Pressure 109/69 113/73 117/73 Pulse Oximetry 100 100 100 03/09/18 20:00 03/09/18 20:11 03/09/18 20:30 Temperature 97.6 F Pulse Rate 105 H 110 H Respiratory Rate 27 H 26 H 28 H Blood Pressure 108/71 113/77 Pulse Oximetry 100 100 100 03/09/18 21:00 03/09/18 21:30 03/09/18 22:00 Temperature Pulse Rate 102 H 87 85 Respiratory Rate 27 H 27 H 28 H Blood Pressure 121/76 118/72 118/72 Pulse Oximetry 100 100 100 03/09/18 22:30 03/09/18 23:00 03/09/18 23:30 Temperature Pulse Rate 87 88 93 H Respiratory Rate 29 H 28 H 27 H Blood Pressure 120/70 134/75 132/78 Pulse Oximetry 100 100 100 03/09/18 23:56 03/10/18 00:00 03/10/18 00:06 Temperature 98.9 F Pulse Rate 101 H 111 H Respiratory Rate 28 H 31 H 26 H Blood Pressure 148/94 H Pulse Oximetry 100 100 03/10/18 00:30 03/10/18 01:00 03/10/18 01:30 Temperature Pulse Rate 103 H 121 H 119 H Respiratory Rate 32 H 33 H 28 H Blood Pressure 148/87 H 164/98 H 167/94 H Pulse Oximetry 100 100 100 03/10/18 02:00 03/10/18 02:30 03/10/18 03:00 Temperature Pulse Rate 123 H 126 H 130 H Respiratory Rate 22 20 21 Blood Pressure 160/92 H 157/85 H 136/79 Pulse Oximetry 100 100 100 03/10/18 03:30 03/10/18 04:00 03/10/18 04:30 Temperature 100.1 F H Pulse Rate 133 H 129 H 134 H Respiratory Rate 21 21 20 Blood Pressure 134/79 127/83 135/78 Pulse Oximetry 100 100 100 03/10/18 05:00 03/10/18 05:30 03/10/18 06:00 Temperature Pulse Rate 132 H 124 H 122 H Respiratory Rate 20 19 19 Blood Pressure 132/75 127/75 126/73 Pulse Oximetry 100 100 100 03/10/18 06:30 03/10/18 07:00 03/10/18 07:13 Temperature Pulse Rate 125 H 125 H Respiratory Rate 19 21 25 H Blood Pressure 128/77 133/79 Pulse Oximetry 100 100 100 03/10/18 07:30 03/10/18 08:00 03/10/18 08:30 Temperature 98.7 F Pulse Rate 127 H 127 H 121 H Respiratory Rate 20 22 20 Blood Pressure 132/80 134/82 135/81 Pulse Oximetry 100 100 100 03/10/18 09:00 03/10/18 11:02 Temperature Pulse Rate 111 H Respiratory Rate 19 18 Blood Pressure 131/80 Pulse Oximetry 100 100 Intake & Output 03/09/18 03/10/18 03/10/18 18:59 06:59 18:59 Intake Total 995 / 995 649 / 649 200 / 200 Output Total 2600 / 2600 Balance 995 / 995 -1951 / -1951 200 / 200 Weight 59.4 kg Intake: IV 300 / 300 200 / 200 200 / 200 Primaxin Inj 500 MG In NS Inj 300 / 300 200 / 200 100 / 100 100 ML @ 200 mls/hr IV.SIG Q6H KARINA Rx#:[id number] KCl 20 mEq Premix Inj 20 meq In 100 / 100 100 ml @ 50 mls/hr IV.SIG Q2H PRN Rx#:[id number] Tube Feeding 455 / 455 449 / 449 Water Bolus Amount 240 / 240 Output: Urine 2600 / 2600 Other: Date of Last Bowel Movement 07/01/2003/09/18 03/09/18 03/09/18 19:21 Blood - Peripheral Aerobic Blood Culture - Preliminary No growth in 1 day 03/09/18 19:21 Blood - Peripheral Anaerobic Blood Culture - Preliminary No growth in 1 day 03/09/18 19:28 Blood - Peripheral Aerobic Blood Culture - Preliminary No growth in 1 day 03/09/18 19:28 Blood - Peripheral Anaerobic Blood Culture - Preliminary No growth in 1 day 03/08/18 11:00 Blood - Peripheral Aerobic Blood Culture - Preliminary No growth in 2 days 03/08/18 11:00 Blood - Peripheral Anaerobic Blood Culture - Preliminary No growth in 2 days 03/08/18 11:09 Blood - Peripheral Aerobic Blood Culture - Preliminary No growth in 2 days 03/08/18 11:09 Blood - Peripheral Anaerobic Blood Culture - Preliminary No growth in 2 days 03/06/18 05:12 Blood - Peripheral Aerobic Blood Culture - Preliminary No growth in 4 days 03/06/18 05:12 Blood - Peripheral Anaerobic Blood Culture - Final Staphylococcus epidermidis 03/05/18 15:33 Blood - Peripheral Aerobic Blood Culture - Final No growth in 5 days 03/05/18 15:33 Blood - Peripheral Anaerobic Blood Culture - Final Escherichia coli ESBL positive 03/08/18 17:55 Catheterized Urine Urine Culture - Final No growth in 48 hours 03/09/18 16:45 Sputum - Endotracheal Gram Stain - Final 03/09/18 16:45 Sputum - Endotracheal Sputum Culture - Pending 03/07/18 16:00 Sputum - Endotracheal Gram Stain - Final 03/07/18 16:00 Sputum - Endotracheal Sputum Culture - Final Heavy growth normal respiratory ramesh 03/05/18 12:55 Blood - Peripheral Aerobic Blood Culture - Final Escherichia coli ESBL positive 03/05/18 12:55 Blood - Peripheral Anaerobic Blood Culture - Final Escherichia coli ESBL positive Lab - Hematology Results 03/09/18 03/10/18 04:33 05:15 WBC 4.8 4.1 RBC 3.38 L 3.53 L Hgb 10.7 L 11.0 L Hct 31.6 L 32.4 L MCV 93.6 91.8 MCH 31.6 31.2 MCHC 33.7 34.0 RDW 18.0 H 17.6 H Plt Count 34 L 46 L D MPV 10.9 10.4 Prelim Diff (Auto) Slide review pending Neut % (Auto) 79.4 H Lymph % (Auto) 15.4 [place] % (Auto) 4.6 Eos % (Auto) 0.1 Baso % (Auto) 0.5 Neut # (Auto) 3.3 Lymph # (Auto) 0.6 L [place] # (Auto) 0.2 Eos # (Auto) 0.0 Baso # (Auto) 0.0 WBC Differential Manual diff final Seg Neuts % (Manual) 68 Band Neuts % (Manual) 26 H Lymphocytes % (Manual) 1 L Monocytes % (Manual) 4 Plasma Cell % (Manual) 1 H Abs Neuts (Manual) 3.9 Differential Comment . Dohle Bodies Present H Platelet Estimate Low L Platelet Morphology Normal RBC Morphology Normal Lab - Chemistry Results 03/08/18 03/08/18 03/08/18 17:15 20:00 20:00 Sodium Potassium Chloride Carbon Dioxide Anion Gap BUN Creatinine Estimated GFR POC Glucose 104 Random Glucose Calcium Prot Corrected Calcium Ferritin 1854 H Total Bilirubin AST ALT Alkaline Phosphatase Total Protein Albumin Vitamin B12 Greater than 2000 H Folate 10.7 03/09/18 03/09/18 03/09/18 00:39 04:33 08:59 Sodium 144 Potassium 4.1 Chloride 112 H Carbon Dioxide 22.0 Anion Gap 10 BUN 13 Creatinine 0.17 L Estimated GFR Greater than 89 POC Glucose 110 95 Random Glucose 111 H Calcium 7.2 L* Prot Corrected Calcium 8.5 Ferritin Total Bilirubin 0.6 AST 36 ALT 19 Alkaline Phosphatase 352 H Total Protein 4.8 L Albumin 1.4 L Vitamin B12 Folate 03/09/18 03/09/18 03/10/18 18:37 23:54 05:15 Sodium 142 Potassium 3.4 L Chloride 108 H Carbon Dioxide 22.5 Anion Gap 12 BUN 15 Creatinine 0.27 L Estimated GFR Greater than 89 POC Glucose 141 H 119 H Random Glucose 124 H Calcium 7.5 L Prot Corrected Calcium Ferritin Total Bilirubin 0.6 AST 53 H ALT 25 Alkaline Phosphatase 400 H Total Protein 5.1 L Albumin 1.5 L Vitamin B12 Folate 03/10/18 12:38 Sodium Potassium Chloride Carbon Dioxide Anion Gap BUN Creatinine Estimated GFR POC Glucose 131 H Random Glucose Calcium Prot Corrected Calcium Ferritin Total Bilirubin AST ALT Alkaline Phosphatase Total Protein Albumin Vitamin B12 Folate Imaging: ITS Impressions Chest X-Ray 03/09/18 08:51 CONCLUSION: 1. Interval removal of left subclavian central line. 2. Stable small left pleural effusion and associated airspace disease in the left lower lobe. 3. Continued improving aeration of the left upper lung zone. 4. Stable mild airspace disease in the right lower lung zone. Physical Exam: Physical Examination GENERAL: Eyse open, on the vent, NAD SKIN: Cool, no generalized rash HEENT: Head is atraumatic. Pupils reactive to light. No icterus. Oropharynx dry mucosa. NECK: Not fully assessed because the neck collar was not removed. LUNGS: Scattered rhonchi, decreased breath sounds on the left side HEART: Tachycardic ABDOMEN: Mildly distended, has hypoactive bowel sounds, diffusely tender, and patient moaning EXTREMITIES: Cool feet. Has pedal edema on the left side, none on the right NEUROLOGIC: Sedated PSYCH: Unable to assess LINE: NO evidence of infection Assessment and Plan - Plan IMPRESSION: E coli ESBL sepsis with shock - BP better Clinical deterioration with increased O2 requirement, likely ARDS - too rapid development of infiltrates for PNA E coli ESBL (+) UTI, recurrent - CT A/P no hydronephrosis - has had problem with retention here Respiratory failure Thrombocytopenia due to sepsis, no DIC Urinary retention, getting straight cath q6H new fever RECOMMENDATIONS: Continue Primaxin Follow new C/S Repeat echo - no veg seen Add Vancomycin Monitor progress Monitor temps Weaning per CCM D/W LUIS
[2018-03-10] MEDS ORDERED: Vancomycin Consult Pharmacy 1 EACH OTHER SCH (14:00)
[2018-03-10] MEDS: Collagenase Oint 30 GM Tube TOPICAL SCH (15:00)
[2018-03-10] MEDS ORDERED: Vancomycin Inj 1,500 MG in Sodium Chlor 0.9% Inj 500 ML IV.SIG ONE (17:00)
--- NOTE | 2018-03-10 18:05 | P.PNONC ---
Subjective Interval history: Intubated and sedated at bedside. Objective Vital Signs/Intake & Output: Vital Signs 03/09/18 18:30 03/09/18 19:00 03/09/18 19:30 Temperature Pulse Rate 110 H 107 H 108 H Respiratory Rate 28 H 27 H 27 H Blood Pressure 109/69 113/73 117/73 Pulse Oximetry 100 100 100 03/09/18 20:00 03/09/18 20:11 03/09/18 20:30 Temperature 97.6 F Pulse Rate 105 H 110 H Respiratory Rate 27 H 26 H 28 H Blood Pressure 108/71 113/77 Pulse Oximetry 100 100 100 03/09/18 21:00 03/09/18 21:30 03/09/18 22:00 Temperature Pulse Rate 102 H 87 85 Respiratory Rate 27 H 27 H 28 H Blood Pressure 121/76 118/72 118/72 Pulse Oximetry 100 100 100 03/09/18 22:30 03/09/18 23:00 03/09/18 23:30 Temperature Pulse Rate 87 88 93 H Respiratory Rate 29 H 28 H 27 H Blood Pressure 120/70 134/75 132/78 Pulse Oximetry 100 100 100 03/09/18 23:56 03/10/18 00:00 03/10/18 00:06 Temperature 98.9 F Pulse Rate 101 H 111 H Respiratory Rate 28 H 31 H 26 H Blood Pressure 148/94 H Pulse Oximetry 100 100 03/10/18 00:30 03/10/18 01:00 03/10/18 01:30 Temperature Pulse Rate 103 H 121 H 119 H Respiratory Rate 32 H 33 H 28 H Blood Pressure 148/87 H 164/98 H 167/94 H Pulse Oximetry 100 100 100 03/10/18 02:00 03/10/18 02:30 03/10/18 03:00 Temperature Pulse Rate 123 H 126 H 130 H Respiratory Rate 22 20 21 Blood Pressure 160/92 H 157/85 H 136/79 Pulse Oximetry 100 100 100 03/10/18 03:30 03/10/18 04:00 03/10/18 04:30 Temperature 100.1 F H Pulse Rate 133 H 129 H 134 H Respiratory Rate 21 21 20 Blood Pressure 134/79 127/83 135/78 Pulse Oximetry 100 100 100 03/10/18 05:00 03/10/18 05:30 03/10/18 06:00 Temperature Pulse Rate 132 H 124 H 122 H Respiratory Rate 20 19 19 Blood Pressure 132/75 127/75 126/73 Pulse Oximetry 100 100 100 03/10/18 06:30 03/10/18 07:00 03/10/18 07:13 Temperature Pulse Rate 125 H 125 H Respiratory Rate 19 21 25 H Blood Pressure 128/77 133/79 Pulse Oximetry 100 100 100 03/10/18 07:30 03/10/18 08:00 03/10/18 08:30 Temperature 98.7 F Pulse Rate 127 H 127 H 121 H Respiratory Rate 20 22 20 Blood Pressure 132/80 134/82 135/81 Pulse Oximetry 100 100 100 03/10/18 09:00 03/10/18 11:02 03/10/18 12:00 Temperature 99.0 F Pulse Rate 111 H Respiratory Rate 19 18 Blood Pressure 131/80 Pulse Oximetry 100 100 03/10/18 15:26 Temperature Pulse Rate Respiratory Rate 21 Blood Pressure Pulse Oximetry 100 Intake & Output 03/09/18 03/10/18 03/10/18 18:59 06:59 18:59 Intake Total 995 / 995 649 / 649 200 / 200 Output Total 2600 / 2600 Balance 995 / 995 -1952 / -1951 200 / 200 Weight 59.4 kg Intake: IV 300 / 300 200 / 200 200 / 200 Primaxin Inj 500 MG In NS Inj 300 / 300 200 / 200 100 / 100 100 ML @ 200 mls/hr IV.SIG Q6H KARINA Rx#:[id number] KCl 20 mEq Premix Inj 20 meq In 100 / 100 100 ml @ 50 mls/hr IV.SIG Q2H PRN Rx#:[id number] Tube Feeding 455 / 455 449 / 449 Water Bolus Amount 240 / 240 Output: Urine 2600 / 2600 Other: Date of Last Bowel Movement 03/09/18 03/09/18 03/09/18 Result Diagrams: 03/10/18 05:15 03/10/18 05:15 Laboratory Results: Laboratory Results - last 24 hr 03/08/18 03/09/18 03/09/18 11:09 16:45 18:37 WBC RBC Hgb Hct MCV MCH MCHC RDW Plt Count MPV Prelim Diff (Auto) Neut % (Auto) Lymph % (Auto) [place] % (Auto) Eos % (Auto) Baso % (Auto) Neut # (Auto) Lymph # (Auto) [place] # (Auto) Eos # (Auto) Baso # (Auto) WBC Differential Seg Neuts % (Manual) Band Neuts % (Manual) Lymphocytes % (Manual) Monocytes % (Manual) Plasma Cell % (Manual) Abs Neuts (Manual) Differential Comment Dohle Bodies Platelet Estimate Platelet Morphology RBC Morphology Sodium Potassium Chloride Carbon Dioxide Anion Gap BUN Creatinine Estimated GFR POC Glucose 141 H Random Glucose Calcium Total Bilirubin AST ALT Alkaline Phosphatase Total Protein Albumin Urine Color Straw Urine Clarity Clear Urine pH 8.0 Ur Specific [place] 1.006 Urine Protein Negative Urine Glucose (UA) 50 Urine Ketones Negative Urine Occult Blood Negative Urine Nitrate Negative Urine Bilirubin Negative Urine Urobilinogen 2.0 H Ur Leukocyte Esterase Negative Urine RBC Less than 1 Urine WBC 1 Ur Squamous Epith Cells <1 Urine Mucus Few H Micro UA Comment Cath-culture not ind Urine Culture Comments Cath-cult not ind Hep-Induced Plt Ab Oralia Negative HIPA Patient OD 0.046 03/09/18 03/10/18 03/10/18 23:54 05:15 05:15 WBC 4.1 RBC 3.53 L Hgb 11.0 L Hct 32.4 L MCV 91.8 MCH 31.2 MCHC 34.0 RDW 17.6 H Plt Count 46 L D MPV 10.4 Prelim Diff (Auto) Slide review pending Neut % (Auto) 79.4 H Lymph % (Auto) 15.4 [place] % (Auto) 4.6 Eos % (Auto) 0.1 Baso % (Auto) 0.5 Neut # (Auto) 3.3 Lymph # (Auto) 0.6 L [place] # (Auto) 0.2 Eos # (Auto) 0.0 Baso # (Auto) 0.0 WBC Differential Manual diff final Seg Neuts % (Manual) 68 Band Neuts % (Manual) 26 H Lymphocytes % (Manual) 1 L Monocytes % (Manual) 4 Plasma Cell % (Manual) 1 H Abs Neuts (Manual) 3.9 Differential Comment . Dohle Bodies Present H Platelet Estimate Low L Platelet Morphology Normal RBC Morphology Normal Sodium 142 Potassium 3.4 L Chloride 108 H Carbon Dioxide 22.5 Anion Gap 12 BUN 15 Creatinine 0.27 L Estimated GFR Greater than 89 POC Glucose 119 H Random Glucose 124 H Calcium 7.5 L Total Bilirubin 0.6 AST 53 H ALT 25 Alkaline Phosphatase 400 H Total Protein 5.1 L Albumin 1.5 L Urine Color Urine Clarity Urine pH Ur Specific [place] Urine Protein Urine Glucose (UA) Urine Ketones Urine Occult Blood Urine Nitrate Urine Bilirubin Urine Urobilinogen Ur Leukocyte Esterase Urine RBC Urine WBC Ur Squamous Epith Cells Urine Mucus Micro UA Comment Urine Culture Comments Hep-Induced Plt Ab Oralia HIPA Patient OD 03/10/18 12:38 WBC RBC Hgb Hct MCV MCH MCHC RDW Plt Count MPV Prelim Diff (Auto) Neut % (Auto) Lymph % (Auto) [place] % (Auto) Eos % (Auto) Baso % (Auto) Neut # (Auto) Lymph # (Auto) [place] # (Auto) Eos # (Auto) Baso # (Auto) WBC Differential Seg Neuts % (Manual) Band Neuts % (Manual) Lymphocytes % (Manual) Monocytes % (Manual) Plasma Cell % (Manual) Abs Neuts (Manual) Differential Comment Dohle Bodies Platelet Estimate Platelet Morphology RBC Morphology Sodium Potassium Chloride Carbon Dioxide Anion Gap BUN Creatinine Estimated GFR POC Glucose 131 H Random Glucose Calcium Total Bilirubin AST ALT Alkaline Phosphatase Total Protein Albumin Urine Color Urine Clarity Urine pH Ur Specific [place] Urine Protein Urine Glucose (UA) Urine Ketones Urine Occult Blood Urine Nitrate Urine Bilirubin Urine Urobilinogen Ur Leukocyte Esterase Urine RBC Urine WBC Ur Squamous Epith Cells Urine Mucus Micro UA Comment Urine Culture Comments Hep-Induced Plt Ab Oralia HIPA Patient OD Culture Results: Microbiology 03/06/18 05:12 Aerobic Blood Culture - Preliminary Blood - Peripheral gram positive cocci Anaerobic Blood Culture - Final Staphylococcus epidermidis 03/09/18 16:45 Gram Stain - Final Sputum - Endotracheal Sputum Culture - Preliminary Light growth normal respiratory ramesh at 24 hours 03/09/18 19:21 Aerobic Blood Culture - Preliminary Blood - Peripheral No growth in 1 day Anaerobic Blood Culture - Preliminary No growth in 1 day 03/09/18 19:28 Aerobic Blood Culture - Preliminary Blood - Peripheral No growth in 1 day Anaerobic Blood Culture - Preliminary No growth in 1 day 03/08/18 11:00 Aerobic Blood Culture - Preliminary Blood - Peripheral No growth in 2 days Anaerobic Blood Culture - Preliminary No growth in 2 days 03/08/18 11:09 Aerobic Blood Culture - Preliminary Blood - Peripheral No growth in 2 days Anaerobic Blood Culture - Preliminary No growth in 2 days 03/05/18 15:33 Aerobic Blood Culture - Final Blood - Peripheral No growth in 5 days Anaerobic Blood Culture - Final Escherichia coli ESBL positive 03/08/18 17:55 Urine Culture - Final Catheterized Urine No growth in 48 hours 03/07/18 16:00 Gram Stain - Final Sputum - Endotracheal Sputum Culture - Final Heavy growth normal respiratory ramesh 03/05/18 12:55 Aerobic Blood Culture - Final Blood - Peripheral Escherichia coli ESBL positive Anaerobic Blood Culture - Final Escherichia coli ESBL positive Medications: Active Medications Generic Name Dose Route Start Last Admin Trade Name Freq PRN Reason Stop Dose Admin Acetaminophen 650 mg 03/05/18 00:01 03/09/18 13:35 Tylenol PO 650 mg Q6H PRN Administration PAIN 1-5 AND/OR FEVER > 101F Albuterol 1 ampul 03/05/18 00:00 03/09/18 23:56 Duoneb Neb (Prn) NEB 1 ampul Q2HR NEB PRN Administration WHEEZING Collagenase 1 applicatio 03/09/18 15:00 03/10/18 15:00 Santyl Oint TOPICAL 1 applicatio Q24H KARINA Administration Cyclobenzaprine HCl 5 mg 03/05/18 09:00 03/10/18 12:40 Flexeril PO 5 mg TID KARINA Administration Famotidine 20 mg 03/05/18 09:00 03/10/18 08:05 Pepcid PO 20 mg BID KARINA Administration Gabapentin 600 mg 03/05/18 09:00 03/10/18 12:40 Neurontin PO 600 mg TID KARINA Administration Acetaminophen 1,000 mg in 100 mls @ 400 mls/hr 03/05/18 00:01 03/07/18 21:48 Ofirmev Inj IV.SIG Infused Q6H PRN Infusion FEVER>101degF Imipenem/Cilastatin Sodium 500 100 mls @ 200 mls/hr 03/05/18 04:00 03/10/18 15:01 mg/ Sodium Chloride IV.SIG 200 mls/hr Q6H KARINA Administration Potassium Chloride 20 meq in 100 mls @ 50 mls/hr 03/05/18 00:01 03/10/18 12: 41 Kcl 20 Meq Premix Inj IV.SIG 25 mls/hr Q2H PRN Administration For Potassium 3.3 - 3.5 mEq/L Potassium Phosphate 30 mmol/ 260 mls @ 42 mls/hr 03/07/18 06:54 03/07/18 17: 07 Sodium Chloride IV.SIG 42 mls/hr UNSCH PRN Infusion SEE LABEL COMMENTS Potassium Phosphate 30 mmol/ 260 mls @ 42 mls/hr 03/05/18 00:01 03/06/18 08: 21 Sodium Chloride IV.SIG 0 mls/hr UNSCH PRN Infusion SEE LABEL COMMENTS Fentanyl 2,500 mcg in 250 mls @ 5 mls/hr 03/05/18 00:01 03/06/18 08:21 Fentanyl 10 Mcg/Ml Premix Drip IV.SIG 0 mcg/hr TITRATE PRN 0 mls/hr Per Protocol Titration Protocol 50 MCG/HR Insulin Human Regular 1 units 03/05/18 00:00 03/10/18 12:40 Novolin R Supplemental Scale SQ Not Given Q6HR KARINA Protocol Levothyroxine Sodium 50 mcg 03/05/18 06:00 03/10/18 05:14 Synthroid PO 50 mcg DAILY@0600 KARINA Administration Metoprolol Tartrate 50 mg 03/09/18 09:30 03/10/18 08:05 Lopressor PO 50 mg BID KARINA Administration Oxybutynin Chloride 5 mg 03/05/18 06:00 03/10/18 15:00 Ditropan PO 5 mg Q8HR KARINA Administration Pravastatin Sodium 20 mg 03/05/18 09:00 03/10/18 08:05 Pravachol PO 20 mg DAILY KARINA Administration Sodium Chloride 0 ml 03/05/18 09:00 03/10/18 08:07 Ns Flush IV.FLUSH 6 ml DAILY KARINA Administration Protocol Tramadol HCl 50 mg 03/05/18 00:00 03/10/18 03:17 Ultram PO 50 mg Q8H PRN Administration PAIN 6-10 Objective Remarks: GENERAL: critically ill lady SKIN: Warm and dry. HEAD: Normocephalic. EYES: No injection or drainage. CARDIOVASCULAR: Regular rate and rhythm without murmurs. RESPIRATORY: Breath sounds equal bilaterally. GASTROINTESTINAL: Abdomen soft, non-tender, nondistended. EXTREMITIES: bilateral upper extremity edema MUSCULOSKELETAL: Adequate muscle tone. NEUROLOGICAL: No obvious focal deficit. Awake, alert, and oriented x3. PSYCHIATRIC: Appropriate mood and affect; insight and judgment normal. Assessment/Plan - Plan 1. Acute thrombocytopenia: secondary to sepsis, critical illness, antibiotics. Imipenem/cilastatin has a 1-10% risk of adverse reaction of thrombocytopenia. 2. Anemia: inflammatory anemia. 3. Ecoli sepsis: ID team following closely. Continue to trend counts. Hematology service will continue to follow peripherally
[2018-03-11] MEDS: Insulin NovoLIN Regular Correctional Sugar Inj SQ SCH ×5 (00:37→18:52)
[2018-03-11] MEDS: Levothyroxine 50 MCG Tablet PO SCH (05:49)
[2018-03-11 06:20] LABS: Baso % (Auto) 0.2 % (0.0-2.0); Eos % (Auto) 0.4 % (0.0-4.0); Hemoglobin 9.6 gm/dL (11.6-15.3); Lymph # (Auto) 0.7 th/mm3 (1.0-4.8); Lymph % (Auto) 18.2 % (9.0-44.0); Mean Corpuscular HGB Conc 34.3 % (32.0-36.0); Mean Corpuscular Hemoglobin 31.6 pg (27.0-34.0); Mean Corpuscular Volume 92.1 fL (80.0-100.0); Mean Platelet Volume 10.9 fL (7.0-11.0); Mono # (Auto) 0.2 th/mm3 (0.0-0.9); Mono % (Auto) 6.4 % (0.0-8.0); Neut # (Auto) 2.7 th/mm3 (1.8-7.7); Neut % (Auto) 74.8 % (16.0-70.0); Platelet Count 64 th/mm3 (150-450); Red Blood Count 3.04 mil/mm3 (4.00-5.30); Red Cell Distribution Width 17.1 % (11.6-17.2); White Blood Count 3.7 th/mm3 (4.0-11.0)
[2018-03-11 06:38] LABS: Alanine Aminotransferase 29 U/L (10-53); Albumin 1.3 g/dL (3.4-5.0); Alkaline Phosphatase 372 U/L (45-117); Anion Gap 11 meq/L (5-15); Aspartate Aminotransferase 60 U/L (15-37); Blood Urea Nitrogen 13 mg/dL (7-18); Calcium 7.3 mg/dL (8.5-10.1); Carbon Dioxide 22.4 meq/L (21.0-32.0); Chloride 107 meq/L (98-107); Glomerular Filtration Rate Greater Than 89 mL/min (>89); Glucose,Random 122 mg/dL (74-106); Potassium 3.5 meq/L (3.5-5.1); Sodium 140 meq/L (136-145); Total Protein 4.8 g/dL (6.4-8.2)
[2018-03-11] MEDS: Potassium Chlor 20 mEq Premix 20 MEQ/100 ML PIGGYBACK IV.SIG PRN ×2 (06:54→11:25)
[2018-03-11 08:34] LABS: Lymphocytes 13 % (9-44); Monocytes 1 % (0-8); Platelet Morphology Normal (Normal); RBC Morphology Normal (Normal)
--- NOTE | 2018-03-11 08:55 | P.PNCC ---
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 she was sent to [facility] for procedural management of these. She was then transferred to [facility] on 02/28. Please see the dictated hospitalist consult note on 02/28 on admission to [facility] for a detailed record of the hospital course while at [facility]. Today, she was found to be very tachycardic in the 160s and hypotensive with sbp in the 70s. She was emergently transferred to the ICU after rapid response was called for evaluation and management of her hypotension. Of note, she did not have iv access. I met her on arrival to the ICU. I placed 2 18g piv. 12-lead EKG confirms sinus tachycardia. I due to the fast rate, I gave 6mg adenosine to slow it down diagnostically, and it slowed down temporarily to a HR in the 70s, confirming sinus rhythm. I performed bedside critical care echocardiography which demonstrates grossly preserve biventricular function. in particular, RV is decompressed and well-functioning. IVC is completely collapsable. no pericardial effusion. I gave her 3L NS bolus ivf which improved her SBP to 110s and decreased her HR to 110s. She is afebrile. stat CBC shows anemia (history of recent femoral artery pseudoaneurysm), CMP demonstrates elevated AST and Alk phos, elevated lactate at 3.7. Cr elevated above baseline. Patient denies any complaints to me. she is mostly [place] speaking, but communicates in basic tajik. specifically denies chest pain, shortness of breath, fever/chills, nausea, vomiting, abdominal pain, constipation, diarrhea. I discussed with her family, she has been eating and drinking well even up to today. ROS otherwise negative. 03/02 Patient is awake lying in bed in TRAV. On room air oxygen. T:103.2 this morning She was hypotensive overnight initially placed on Neosyn now off pressor with BP 147/67 with MAP 96. 03/03 No events overnight. Seems more awake and alert this morning. T: 100.2 at midnight. BP and HR better ( 119/58 with MAP 83mmHg). On no pressors. BC from 03/01: E.coli ESBL 6/30: clinically improving. slightly tachycardic. on appropriate therapy for her ESBL e. coli. denies complaints. hemodynamically stable. on room air. 03/05: Patient developed worsening respiratory distress yesterday and required endotracheal intubation and was placed on mechanical ventilation. Hypotension overnight for which patient was started on phenylephrine. Developed A. fib with RVR and was started on amiodarone gtt. 03/06 Patient remains sedated and intubated. Tmax 101.6, On Amio drip. 03/07 Patient remains intubated off sedation. s/p transfusion 2u PRBC yesterday. Tolerating tube feeds. Afebrile. Off Amio drip. 03/08 Patient remains intubated. T:100.9 last night. 03/09 No events overnight. Tolerated CPAP for approx 4 hrs yesterday. Off sedation. Afebrile. 03/10 No events overnight T:100.1 at 4am, Awake, patient was on CPAP for short time yesterday and placed back on PRVC mode for low TV and tachycardia. 03/11 No events overnight. Tolerated CPAP x 4hrs yesterday. T:100.6 yesterday. On no sedation. Objective Vital Signs / I&O: Vital Signs 03/10/18 09:00 03/10/18 09:30 03/10/18 10:00 Temperature Pulse Rate 111 H 111 H 111 H Respiratory Rate 19 19 19 Blood Pressure 131/80 124/76 124/71 Pulse Oximetry 100 100 100 03/10/18 10:30 03/10/18 11:00 03/10/18 11:02 Temperature Pulse Rate 112 H 109 H Respiratory Rate 33 H 18 18 Blood Pressure 123/75 119/70 Pulse Oximetry 100 100 100 03/10/18 11:30 03/10/18 12:00 03/10/18 12:30 Temperature 99.0 F Pulse Rate 110 H 110 H 112 H Respiratory Rate 18 18 18 Blood Pressure 122/72 122/73 127/76 Pulse Oximetry 100 100 100 03/10/18 13:00 03/10/18 13:30 03/10/18 14:00 Temperature Pulse Rate 116 H 112 H 112 H Respiratory Rate 18 18 18 Blood Pressure 130/77 119/73 118/71 Pulse Oximetry 100 100 100 03/10/18 14:30 03/10/18 15:00 03/10/18 15:26 Temperature Pulse Rate 115 H 116 H Respiratory Rate 18 18 21 Blood Pressure 125/73 119/72 Pulse Oximetry 100 100 100 03/10/18 15:30 03/10/18 16:00 03/10/18 16:30 Temperature 100.6 F H Pulse Rate 117 H 125 H 125 H Respiratory Rate 25 H 18 18 Blood Pressure 131/76 122/75 121/78 Pulse Oximetry 100 100 100 03/10/18 17:00 03/10/18 17:30 03/10/18 18:00 Temperature Pulse Rate 123 H 121 H 126 H Respiratory Rate 18 18 20 Blood Pressure 128/77 127/77 132/82 Pulse Oximetry 100 100 100 03/10/18 18:30 03/10/18 19:00 03/10/18 19:18 Temperature Pulse Rate 122 H 120 H Respiratory Rate 18 22 18 Blood Pressure 132/79 126/79 Pulse Oximetry 100 100 100 03/10/18 19:30 03/10/18 20:00 03/10/18 20:30 Temperature 99.5 F Pulse Rate 120 H 118 H 117 H Respiratory Rate 18 18 18 Blood Pressure 130/79 132/77 131/75 Pulse Oximetry 100 100 100 03/10/18 21:00 03/10/18 21:30 03/10/18 22:00 Temperature Pulse Rate 116 H 99 H 96 H Respiratory Rate 18 18 18 Blood Pressure 128/82 134/80 133/78 Pulse Oximetry 100 100 100 03/10/18 22:05 03/10/18 22:30 03/10/18 23:00 Temperature Pulse Rate 97 H 99 H Respiratory Rate 18 18 18 Blood Pressure 138/82 134/83 Pulse Oximetry 100 100 100 03/10/18 23:30 03/11/18 00:00 03/11/18 00:30 Temperature 99.1 F Pulse Rate 98 H 100 H 103 H Respiratory Rate 18 18 18 Blood Pressure 142/77 H 137/81 144/76 H Pulse Oximetry 100 100 100 03/11/18 01:00 03/11/18 01:15 03/11/18 01:30 Temperature Pulse Rate 104 H 116 H Respiratory Rate 19 18 25 H Blood Pressure 132/79 142/86 H Pulse Oximetry 100 100 100 03/11/18 02:00 03/11/18 02:30 03/11/18 03:00 Temperature Pulse Rate 109 H 105 H 108 H Respiratory Rate 18 18 18 Blood Pressure 133/77 133/79 133/78 Pulse Oximetry 100 100 100 03/11/18 03:30 03/11/18 04:00 03/11/18 04:06 Temperature 98.8 F Pulse Rate 109 H 114 H Respiratory Rate 18 19 18 Blood Pressure 133/78 134/78 Pulse Oximetry 100 100 100 03/11/18 07:41 Temperature Pulse Rate Respiratory Rate 16 Blood Pressure Pulse Oximetry 100 Intake & Output 03/10/18 03/11/18 03/11/18 18:59 06:59 18:59 Intake Total 702 / 702 947 / 947 Output Total 1501 / 1501 1500 / 1500 Balance -799 / -799 -553 / -553 Weight 57.1 kg Intake: IV 200 / 200 400 / 400 Primaxin Inj 500 MG In NS Inj 100 / 100 300 / 300 100 ML @ 200 mls/hr IV.SIG Q6H KARINA Rx#:[id number] KCl 20 mEq Premix Inj 20 meq In 100 / 100 100 / 100 100 ml @ 50 mls/hr IV.SIG Q2H PRN Rx#:[id number] Tube Feeding 382 / 382 447 / 447 Water Bolus Amount 120 / 120 100 / 100 Output: Urine 1500 / 1500 Stool 1 / 1 Urine Amount (Catheter) 1500 / 1500 Straight 1500 / 1500 Other: Date of Last Bowel Movement 03/09/18 03/09/18 Result Diagrams: 03/11/18 05:08 03/11/18 05:08 Objective Remarks: GENERAL: Patient is 62 yo intubated and sedated SKIN: Warm and dry. HEAD: Normocephalic. EYES: No scleral icterus. No injection or drainage. NECK: Supple, trachea midline. No JVD or lymphadenopathy. CARDIOVASCULAR: Tachycardic without murmurs, gallops, or rubs. RESPIRATORY: Breath sounds equal bilaterally. No accessory muscle use. GASTROINTESTINAL: Abdomen soft, non-tender, nondistended. MUSCULOSKELETAL: No cyanosis, or edema. Neuro: Intubated, Assessment and Plan - Assessment and Plan Plan: A/P Assessment and Plan Plan by system Neuro: Off sedation. Monitor neuro status CT brain: Negative or acute process MRI brain: previously noted subarachnoid hemorrhage overlying the occipital lobes has resolved. Tiny trace of residual hemorrhage in the posterior lateral ventricles. Stable chronic white matter changes. No new or acute intracranial process. Pulm: ARDS Continue vent support keep sats >92% Bronchodilators, ICU vent bundle. CTA chest: No PE, minimal consolidative changes left base SBT daily as amador CV: A. fib On Lopressor 50mg Q12 Monitor HR and BP keep MAP>65mmHg. Pravachol 20mg daily -Elevated troponin, type II demand ischemia NSTEMI - Lactic acid cleared 1.9- Echo 03/06 EF 50-55% -will not anticoagulate at this time given risk/benefit with recent head bleed Cortisol level: 41 Cards is following : Urinary retention Monitor renal function, electrolytes replacement per protocol. GI: Elevated AST, Alk phos Monitor LFT's, CT abd/pelvis without evidence of overt acute cholecystitis On tube feeds- Glucerna 1.5@ 45ml/hr ID: Gram negative bacteremia Urinary tract infection s/p Septic shock Continue with abx per ID ( Imipenem, Vanco added 03/10 by ID) ,Monitor for signs of infections ( Fever, WBC) 03/07: Sputum cx: normal resp ramesh 03/08, 03/09 BC: NGTD 03/06 BC Coag negative staph 03/05 BC: E.coli bacteremia 03/01 BC: E.coli ESBL 03/01 Urine cx: GNR Heme: Anemia Thrombocytopenia likely 2nd sepsis -Monitor CBC, s/p transfuse 2u PRBC 03/06 Heme is following- Dr. Miller Hep PLT ab negative Sacral decubitus - present on admission - does not appear grossly infected - likely not the source of infection - management per wound care nurse Endo: SSI if needed for glycemic control On Synthroid 50mcg daily,. TSH: 0.47 GI prophylaxis- On Pepcid 20mg BID DVT prophylaxis- SCD, hold Heparin Sq due to recent [employer] bleed in January ( MRI brain 01/29) and severe thrombocytopenia Lines: peripheral IV's Level 3
[2018-03-11] MEDS: Famotidine 20 MG Tablet PO SCH ×2 (09:45→20:03)
[2018-03-11] MEDS: Gabapentin 300 MG Capsule PO SCH ×3 (09:45→18:52)
[2018-03-11] MEDS: Metoprolol Tartrate 50 MG Tablet PO SCH ×2 (09:45→20:03)
--- NOTE | 2018-03-11 10:26 | P.PNONC ---
Subjective Interval history: Afebrile Patient remains intubated on CPAP No bleeding Objective Vital Signs/Intake & Output: Vital Signs 03/10/18 10:30 03/10/18 11:00 03/10/18 11:02 Temperature Pulse Rate 112 H 109 H Respiratory Rate 33 H 18 18 Blood Pressure 123/75 119/70 Pulse Oximetry 100 100 100 03/10/18 11:30 03/10/18 12:00 03/10/18 12:30 Temperature 99.0 F Pulse Rate 110 H 110 H 112 H Respiratory Rate 18 18 18 Blood Pressure 122/72 122/73 127/76 Pulse Oximetry 100 100 100 03/10/18 13:00 03/10/18 13:30 03/10/18 14:00 Temperature Pulse Rate 116 H 112 H 112 H Respiratory Rate 18 18 18 Blood Pressure 130/77 119/73 118/71 Pulse Oximetry 100 100 100 03/10/18 14:30 03/10/18 15:00 03/10/18 15:26 Temperature Pulse Rate 115 H 116 H Respiratory Rate 18 18 21 Blood Pressure 125/73 119/72 Pulse Oximetry 100 100 100 03/10/18 15:30 03/10/18 16:00 03/10/18 16:30 Temperature 100.6 F H Pulse Rate 117 H 125 H 125 H Respiratory Rate 25 H 18 18 Blood Pressure 131/76 122/75 121/78 Pulse Oximetry 100 100 100 03/10/18 17:00 03/10/18 17:30 03/10/18 18:00 Temperature Pulse Rate 123 H 121 H 126 H Respiratory Rate 18 18 20 Blood Pressure 128/77 127/77 132/82 Pulse Oximetry 100 100 100 03/10/18 18:30 03/10/18 19:00 03/10/18 19:18 Temperature Pulse Rate 122 H 120 H Respiratory Rate 18 22 18 Blood Pressure 132/79 126/79 Pulse Oximetry 100 100 100 03/10/18 19:30 03/10/18 20:00 03/10/18 20:30 Temperature 99.5 F Pulse Rate 120 H 118 H 117 H Respiratory Rate 18 18 18 Blood Pressure 130/79 132/77 131/75 Pulse Oximetry 100 100 100 03/10/18 21:00 03/10/18 21:30 03/10/18 22:00 Temperature Pulse Rate 116 H 99 H 96 H Respiratory Rate 18 18 18 Blood Pressure 128/82 134/80 133/78 Pulse Oximetry 100 100 100 03/10/18 22:05 03/10/18 22:30 03/10/18 23:00 Temperature Pulse Rate 97 H 99 H Respiratory Rate 18 18 18 Blood Pressure 138/82 134/83 Pulse Oximetry 100 100 100 03/10/18 23:30 03/11/18 00:00 03/11/18 00:30 Temperature 99.1 F Pulse Rate 98 H 100 H 103 H Respiratory Rate 18 18 18 Blood Pressure 142/77 H 137/81 144/76 H Pulse Oximetry 100 100 100 03/11/18 01:00 03/11/18 01:15 03/11/18 01:30 Temperature Pulse Rate 104 H 116 H Respiratory Rate 19 18 25 H Blood Pressure 132/79 142/86 H Pulse Oximetry 100 100 100 03/11/18 02:00 03/11/18 02:30 03/11/18 03:00 Temperature Pulse Rate 109 H 105 H 108 H Respiratory Rate 18 18 18 Blood Pressure 133/77 133/79 133/78 Pulse Oximetry 100 100 100 03/11/18 03:30 03/11/18 04:00 03/11/18 04:06 Temperature 98.8 F Pulse Rate 109 H 114 H Respiratory Rate 18 19 18 Blood Pressure 133/78 134/78 Pulse Oximetry 100 100 100 03/11/18 07:41 Temperature Pulse Rate Respiratory Rate 16 Blood Pressure Pulse Oximetry 100 Intake & Output 03/10/18 03/11/18 03/11/18 18:59 06:59 18:59 Intake Total 702 / 702 947 / 947 Output Total 1501 / 1501 1500 / 1500 Balance -799 / -799 -553 / -553 Weight 125 lb 14.143 oz Intake: IV 200 / 200 400 / 400 Primaxin Inj 500 MG In NS Inj 100 / 100 300 / 300 100 ML @ 200 mls/hr IV.SIG Q6H KARINA Rx#:[id number] KCl 20 mEq Premix Inj 20 meq In 100 / 100 100 / 100 100 ml @ 50 mls/hr IV.SIG Q2H PRN Rx#:[id number] Tube Feeding 382 / 382 447 / 447 Water Bolus Amount 120 / 120 100 / 100 Output: Urine 1500 / 1500 Stool 1 / 1 Urine Amount (Catheter) 1500 / 1500 Straight 1500 / 1500 Other: Date of Last Bowel Movement 03/09/18 03/09/18 Result Diagrams: 03/11/18 05:08 03/11/18 05:08 Laboratory Results: Laboratory Results - last 24 hr 03/10/18 03/10/18 03/11/18 12:38 18:05 00:30 WBC RBC Hgb Hct MCV MCH MCHC RDW Plt Count MPV Prelim Diff (Auto) Neut % (Auto) Lymph % (Auto) Monroe % (Auto) Eos % (Auto) Baso % (Auto) Neut # (Auto) Lymph # (Auto) Monroe # (Auto) Eos # (Auto) Baso # (Auto) WBC Differential Seg Neuts % (Manual) Band Neuts % (Manual) Lymphocytes % (Manual) Monocytes % (Manual) Abs Neuts (Manual) Differential Comment Platelet Estimate Platelet Morphology RBC Morphology Sodium Potassium Chloride Carbon Dioxide Anion Gap BUN Creatinine Estimated GFR POC Glucose 131 H 132 H 138 H Random Glucose Calcium Prot Corrected Calcium Total Bilirubin AST ALT Alkaline Phosphatase Total Protein Albumin 03/11/18 03/11/18 05:08 05:08 WBC 3.7 L RBC 3.04 L Hgb 9.6 L Hct 28.0 L MCV 92.1 MCH 31.6 MCHC 34.3 RDW 17.1 Plt Count 64 L D MPV 10.9 Prelim Diff (Auto) Slide review pending Neut % (Auto) 74.8 H Lymph % (Auto) 18.2 Monroe % (Auto) 6.4 Eos % (Auto) 0.4 Baso % (Auto) 0.2 Neut # (Auto) 2.7 Lymph # (Auto) 0.7 L Monroe # (Auto) 0.2 Eos # (Auto) 0.0 Baso # (Auto) 0.0 WBC Differential Manual diff final Seg Neuts % (Manual) 76 H Band Neuts % (Manual) 10 H Lymphocytes % (Manual) 13 Monocytes % (Manual) 1 Abs Neuts (Manual) 3.2 Differential Comment . Platelet Estimate Low L Platelet Morphology Normal RBC Morphology Normal Sodium 140 Potassium 3.5 Chloride 107 Carbon Dioxide 22.4 Anion Gap 11 BUN 13 Creatinine Less than 0.15 L Estimated GFR Greater than 89 POC Glucose Random Glucose 122 H Calcium 7.3 L* Prot Corrected Calcium 8.6 Total Bilirubin 0.5 AST 60 H ALT 29 Alkaline Phosphatase 372 H Total Protein 4.8 L Albumin 1.3 L Culture Results: Microbiology 03/06/18 05:12 Aerobic Blood Culture - Final Blood - Peripheral Staphylococcus coag negative Anaerobic Blood Culture - Final Staphylococcus epidermidis 03/09/18 16:45 Gram Stain - Final Sputum - Endotracheal Sputum Culture - Preliminary Light growth normal respiratory ramesh at 24 hours 03/09/18 19:21 Aerobic Blood Culture - Preliminary Blood - Peripheral No growth in 1 day Anaerobic Blood Culture - Preliminary No growth in 1 day 03/09/18 19:28 Aerobic Blood Culture - Preliminary Blood - Peripheral No growth in 1 day Anaerobic Blood Culture - Preliminary No growth in 1 day 03/08/18 11:00 Aerobic Blood Culture - Preliminary Blood - Peripheral No growth in 2 days Anaerobic Blood Culture - Preliminary No growth in 2 days 03/08/18 11:09 Aerobic Blood Culture - Preliminary Blood - Peripheral No growth in 2 days Anaerobic Blood Culture - Preliminary No growth in 2 days 03/05/18 15:33 Aerobic Blood Culture - Final Blood - Peripheral No growth in 5 days Anaerobic Blood Culture - Final Escherichia coli ESBL positive 03/08/18 17:55 Urine Culture - Final Catheterized Urine No growth in 48 hours 03/07/18 16:00 Gram Stain - Final Sputum - Endotracheal Sputum Culture - Final Heavy growth normal respiratory ramesh 03/05/18 12:55 Aerobic Blood Culture - Final Blood - Peripheral Escherichia coli ESBL positive Anaerobic Blood Culture - Final Escherichia coli ESBL positive Medications: Active Medications Generic Name Dose Route Start Last Admin Trade Name Freq PRN Reason Stop Dose Admin Acetaminophen 650 mg 03/05/18 00:01 03/09/18 13:35 Tylenol PO 650 mg Q6H PRN Administration PAIN 1-5 AND/OR FEVER > 101F Albuterol 1 ampul 03/05/18 00:00 03/09/18 23:56 Duoneb Neb (Prn) NEB 1 ampul Q2HR NEB PRN Administration WHEEZING Collagenase 1 applicatio 03/09/18 15:00 03/10/18 15:00 Santyl Oint TOPICAL 1 applicatio Q24H KARINA Administration Cyclobenzaprine HCl 5 mg 03/05/18 09:00 03/11/18 09:45 Flexeril PO 5 mg TID KARINA Administration Famotidine 20 mg 03/05/18 09:00 03/11/18 09:45 Pepcid PO 20 mg BID KARINA Administration Gabapentin 600 mg 03/05/18 09:00 03/11/18 09:45 Neurontin PO 600 mg TID KARINA Administration Acetaminophen 1,000 mg in 100 mls @ 400 mls/hr 03/05/18 00:01 03/07/18 21:48 Ofirmev Inj IV.SIG Infused Q6H PRN Infusion FEVER>101degF Imipenem/Cilastatin Sodium 500 100 mls @ 200 mls/hr 03/05/18 04:00 03/11/18 09:46 mg/ Sodium Chloride IV.SIG 200 mls/hr Q6H KARINA Administration Potassium Chloride 20 meq in 100 mls @ 50 mls/hr 03/05/18 00:01 03/10/18 20: 00 Kcl 20 Meq Premix Inj IV.SIG Infused Q2H PRN Infusion For Potassium 3.3 - 3.5 mEq/L Potassium Chloride 20 meq in 100 mls @ 50 mls/hr 03/07/18 06:54 03/11/18 06: 54 Kcl 20 Meq Premix Inj IV.SIG 25 mls/hr Q2H PRN Administration For Potassium 3.3 - 3.5 mEq/L Potassium Phosphate 30 mmol/ 260 mls @ 42 mls/hr 03/07/18 06:54 03/07/18 17: 07 Sodium Chloride IV.SIG 42 mls/hr UNSCH PRN Infusion SEE LABEL COMMENTS Potassium Phosphate 30 mmol/ 260 mls @ 42 mls/hr 03/05/18 00:01 03/06/18 08: 21 Sodium Chloride IV.SIG 0 mls/hr UNSCH PRN Infusion SEE LABEL COMMENTS Fentanyl 2,500 mcg in 250 mls @ 5 mls/hr 03/05/18 00:01 03/06/18 08:21 Fentanyl 10 Mcg/Ml Premix Drip IV.SIG 0 mcg/hr TITRATE PRN 0 mls/hr Per Protocol Titration Protocol 50 MCG/HR Insulin Human Regular 1 units 03/05/18 00:00 03/11/18 07:25 Novolin R Supplemental Scale SQ Not Given Q6HR [facility] Protocol Levothyroxine Sodium 50 mcg 03/05/18 06:00 03/11/18 05:49 Synthroid PO 50 mcg DAILY@0600 KARINA Administration Metoprolol Tartrate 50 mg 03/09/18 09:30 03/11/18 09:45 Lopressor PO 50 mg BID KARINA Administration Oxybutynin Chloride 5 mg 03/05/18 06:00 03/11/18 05:49 Ditropan PO 5 mg Q8HR KARINA Administration Pravastatin Sodium 20 mg 03/05/18 09:00 03/11/18 09:45 Pravachol PO 20 mg DAILY KARINA Administration Sodium Chloride 0 ml 03/05/18 09:00 03/10/18 08:07 Ns Flush IV.FLUSH 6 ml DAILY KARINA Administration Protocol Tramadol HCl 50 mg 03/05/18 00:00 03/10/18 03:17 Ultram PO 50 mg Q8H PRN Administration PAIN 6-10 Objective Remarks: GENERAL: Older female resting in bed ventilated on CPAP. She is awake and alert. SKIN: Warm and dry. HEAD: Normocephalic. EYES: No scleral icterus. No injection or drainage. NECK: Supple, trachea midline. No JVD or lymphadenopathy. CARDIOVASCULAR: Regular rate and rhythm without murmurs. RESPIRATORY: Mechanically ventilated on CPAP. 35% FiO2. GASTROINTESTINAL: Mildly protuberant abdomen. Soft palpation. EXTREMITIES: Anasarca. MUSCULOSKELETAL: Adequate muscle tone. NEUROLOGICAL: Not following commands. Patient nonverbal due to ET tube. Assessment/Plan - Plan 1. Acute thrombocytopenia: secondary to sepsis, critical illness, antibiotics. Imipenem/cilastatin has a 1-10% risk of adverse reaction of thrombocytopenia. Defer to infectious disease for antibiotic choice. 2. Anemia: inflammatory anemia. 3. Ecoli sepsis: ID team following closely. - Attending Statement The exam, history, and the medical decision-making described in the above note were completed with the assistance of the mid-level provider. I reviewed and agree with the findings presented. I attest that I had a [id number] encounter with the patient on the same day, and personally performed and documented my assessment and findings in the medical record. No bleeding noted. Patient remains intubated and sedated. No bleeding reported. She has acute thrombocytopenia and pancytopenia due to DIC and sepsis. Platelet count has trended up. Continue supportive care for now.
[2018-03-11 14:30] LABS: ABG Base Excess 1.1 mmol/L (-2-2); ABG PCO2 32 mmHg (38-42); ABG PO2 136 mmHG (61-120)
[2018-03-11 17:20] LABS: ABG Base Excess -1.5 mmol/L (-2-2); ABG PCO2 34 mmHg (38-42); ABG PO2 72 mmHG (61-120)
[2018-03-11] MEDS: Vancomycin Inj 1,000 MG in Sodium Chlor 0.9% Inj 250 ML IV.SIG SCH (17:28)
[2018-03-11] MEDS: Collagenase Oint 30 GM Tube TOPICAL SCH (20:03)
[2018-03-11] MEDS ORDERED: Etomidate Inj 40 MG/20 ML Vial IV.PUSH ONE (20:58)
[2018-03-11] MEDS ORDERED: Etomidate Inj 20 MG/10 ML Ampul IV.PUSH ONE (21:03)
--- NOTE | 2018-03-11 21:59 | P.PCN ---
Date of procedure: 03/11/18 Pre-op diagnosis: Respiratory failure Post-op diagnosis: same Procedure: PROCEDURE NOTE PROCEDURE: Endotracheal intubation INDICATION: Acute respiratory failure. Extubated earlier today. Tachypneic, hypertensive, transmitted upper airway sounds with poor cough despite NT suctioning. DETAILS OF PROCEDURE: The patient was positioned with Cspine in neutral position and cervical collar in place. Preoxygenated with 100% FiO2 via [id number]. Oximeter oxygen saturation of 99% was obtained prior to direct laryngoscopy. The patient was administered Etomidate 20 mg IV and Rocuronium 50 mg IV for RSI . Laryngoscopy was performed with a 3 [place] scope blade and a grade I Cormack-Lehane view was obtained. On single attempt a size 7.5 endotracheal tube was visualized passing through the cords. Correct placement was confirmed with colorimetric CO2 detector. Breath sounds were equal bilaterally. No sounds auscultated over the stomach. The endotracheal tube was secured with a commercial tube lira at a depth of 23 cm at the lips. The patient was connected to the ventilator. The patient tolerated the procedure well without any apparent complication. Oxygen saturations were maintained greater than 98% at all times. Stat chest x-ray was obtained and afterwards the tube was repositioned to 22 cm at the lip
[2018-03-11] MEDS ORDERED: Propofol 1000 mg/100 ml Inj 1,000 MG/100 ML BOTTLE IV.CONT PRN (22:02)
[2018-03-11] MEDS: fentaNYL 10 mcg/mL Premix Drip 2,500 MCG/250 ML BAG IV.SIG PRN (22:11)
--- NOTE | 2018-03-11 22:19 | XR ---
EXAM DATE: 03/11/2018 10:15 PM EDT AGE/SEX: 62 years / Female INDICATIONS: Post intubation. CLINICAL DATA: This is the patient's subsequent encounter. Patient reports that signs and symptoms h ave been present for 4 - 6 days and indicates a pain score of Nonresponsive. MEDICAL/SURGICAL HISTORY: . Diabetes mellitus type II. Hypertension. . Fusion, cervical. COMPARISON: [facility], CHEST 1V SINGLE AP, 03/09/2018. . FINDINGS: There is bilateral mostly basilar airspace disease and small effusions. Endotracheal tube tip is just above the raz. NG enters stomach. Previous fusion lower cervical spine. CONCLUSION: Basilar airspace disease and pleural effusions similar to March 09. Endotracheal tube tip just above ca lizeth. Electronically signed by: Sj Do MD 03/11/2018 10:17 PM EDT
[2018-03-11 23:31] LABS: ABG Base Excess -1.5 mmol/L (-2-2); ABG PCO2 26 mmHg (38-42); ABG PO2 127 mmHG (61-120)
[2018-03-12] MEDS: Insulin NovoLIN Regular Correctional Sugar Inj SQ SCH ×6 (01:06→22:38)
[2018-03-12] MEDS: Oral Hygiene Kit OROPHARYNG SCH ×4 (01:07→16:28)
[2018-03-12 05:46] LABS: Baso % (Auto) 0.5 % (0.0-2.0); Eos % (Auto) 0.4 % (0.0-4.0); Hematocrit 23.9 % (35.0-46.0); Lymph # (Auto) 0.7 th/mm3 (1.0-4.8); Lymph % (Auto) 26.3 % (9.0-44.0); Mean Corpuscular HGB Conc 33.7 % (32.0-36.0); Mean Platelet Volume 10.5 fL (7.0-11.0); Mono # (Auto) 0.2 th/mm3 (0.0-0.9); Mono % (Auto) 8.2 % (0.0-8.0); Neut # (Auto) 1.6 th/mm3 (1.8-7.7); Neut % (Auto) 64.6 % (16.0-70.0); Platelet Count 69 th/mm3 (150-450); Red Blood Count 2.59 mil/mm3 (4.00-5.30); White Blood Count 2.5 th/mm3 (4.0-11.0)
[2018-03-12 06:09] LABS: Alanine Aminotransferase 24 U/L (10-53); Albumin 1.2 g/dL (3.4-5.0); Alkaline Phosphatase 272 U/L (45-117); Anion Gap 12 meq/L (5-15); Aspartate Aminotransferase 43 U/L (15-37); Blood Urea Nitrogen 11 mg/dL (7-18); Carbon Dioxide 20.6 meq/L (21.0-32.0); Chloride 108 meq/L (98-107); Glomerular Filtration Rate Greater Than 89 mL/min (>89); Glucose,Random 64 mg/dL (74-106); Potassium 3.2 meq/L (3.5-5.1); Sodium 141 meq/L (136-145); Total Protein 4.4 g/dL (6.4-8.2)
[2018-03-12] MEDS: Levothyroxine 50 MCG Tablet PO SCH (06:11)
[2018-03-12] MEDS: Vancomycin Inj 1,000 MG in Sodium Chlor 0.9% Inj 250 ML IV.SIG SCH ×2 (06:11→17:52)
[2018-03-12] MEDS: fentaNYL 10 mcg/mL Premix Drip 2,500 MCG/250 ML BAG IV.SIG PRN ×3 (06:12→18:01)
--- NOTE | 2018-03-12 07:08 | P.PNCC ---
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 she was sent to [facility] for procedural management of these. She was then transferred to [facility] on 02/28. Please see the dictated hospitalist consult note on 02/28 on admission to [facility] for a detailed record of the hospital course while at [facility]. Today, she was found to be very tachycardic in the 160s and hypotensive with sbp in the 70s. She was emergently transferred to the ICU after rapid response was called for evaluation and management of her hypotension. Of note, she did not have iv access. I met her on arrival to the ICU. I placed 2 18g piv. 12-lead EKG confirms sinus tachycardia. I due to the fast rate, I gave 6mg adenosine to slow it down diagnostically, and it slowed down temporarily to a HR in the 70s, confirming sinus rhythm. I performed bedside critical care echocardiography which demonstrates grossly preserve biventricular function. in particular, RV is decompressed and well-functioning. IVC is completely collapsable. no pericardial effusion. I gave her 3L NS bolus ivf which improved her SBP to 110s and decreased her HR to 110s. She is afebrile. stat CBC shows anemia (history of recent femoral artery pseudoaneurysm), CMP demonstrates elevated AST and Alk phos, elevated lactate at 3.7. Cr elevated above baseline. Patient denies any complaints to me. she is mostly tajik speaking, but communicates in basic serbian. specifically denies chest pain, shortness of breath, fever/chills, nausea, vomiting, abdominal pain, constipation, diarrhea. I discussed with her family, she has been eating and drinking well even up to today. ROS otherwise negative. 03/02 Patient is awake lying in bed in TRAV. On room air oxygen. T:103.2 this morning She was hypotensive overnight initially placed on Neosyn now off pressor with BP 147/67 with MAP 96. 03/03 No events overnight. Seems more awake and alert this morning. T: 100.2 at midnight. BP and HR better ( 119/58 with MAP 83mmHg). On no pressors. BC from 03/01: E.coli ESBL 6/30: clinically improving. slightly tachycardic. on appropriate therapy for her ESBL e. coli. denies complaints. hemodynamically stable. on room air. 03/05: Patient developed worsening respiratory distress yesterday and required endotracheal intubation and was placed on mechanical ventilation. Hypotension overnight for which patient was started on phenylephrine. Developed A. fib with RVR and was started on amiodarone gtt. 03/06 Patient remains sedated and intubated. Tmax 101.6, On Amio drip. 03/07 Patient remains intubated off sedation. s/p transfusion 2u PRBC yesterday. Tolerating tube feeds. Afebrile. Off Amio drip. 03/08 Patient remains intubated. T:100.9 last night. 03/09 No events overnight. Tolerated CPAP for approx 4 hrs yesterday. Off sedation. Afebrile. 03/10 No events overnight T:100.1 at 4am, Awake, patient was on CPAP for short time yesterday and placed back on PRVC mode for low TV and tachycardia. 03/11 No events overnight. Tolerated CPAP x 4hrs yesterday. T:100.6 yesterday. On no sedation. 03/12 Patient was extubated yesterday reintubated last night for resp distress and AMS. Afebrile. On Diprivan infusion for sedation. Objective Vital Signs / I&O: Vital Signs 03/11/18 07:41 03/11/18 08:00 03/11/18 11:48 Temperature 99.9 F H Pulse Rate 119 H Respiratory Rate 16 19 16 Blood Pressure 134/83 Pulse Oximetry 100 100 03/11/18 12:00 03/11/18 16:00 03/11/18 16:41 Temperature 99.3 F 99.2 F Pulse Rate 91 H 121 H 123 H Respiratory Rate 16 37 H 18 Blood Pressure 119/71 147/99 H Pulse Oximetry 100 100 03/11/18 19:21 03/11/18 20:00 03/11/18 20:30 Temperature 99.6 F Pulse Rate 140 H Respiratory Rate 43 H Blood Pressure 176/107 H Pulse Oximetry 100 100 100 03/11/18 22:00 03/12/18 00:00 03/12/18 04:00 Temperature 98.7 F Pulse Rate 108 H 80 Respiratory Rate 20 16 17 Blood Pressure 109/62 91/54 L Pulse Oximetry 100 100 100 03/12/18 04:06 03/12/18 04:15 Temperature Pulse Rate Respiratory Rate 16 16 Blood Pressure Pulse Oximetry 100 Intake & Output 03/11/18 03/12/18 03/12/18 18:59 06:59 18:59 Intake Total 950 / 950 398 / 398 Output Total 801 / 801 Balance 149 / 149 398 / 398 Intake: IV 450 / 450 398 / 398 Primaxin Inj 500 MG In NS Inj 200 / 200 100 / 100 100 ML @ 200 mls/hr IV.SIG Q6H KARINA Rx#:[id number] Vancomycin Inj 1,000 MG In NS 250 / 250 Inj 250 ML @ 250 mls/hr IV.SIG Q12H KARINA Rx#:[id number] fentaNYL 10 mcg/mL Premix Drip 298 / 298 2,500 mcg In 250 ml @ 50 MCG/HR 5 mls/hr IV.SIG TITRATE PRN Rx #:[id number] Oral 0 / 0 Tube Feeding 250 / 250 Tube Irrigant 200 / 200 Water Bolus Amount 50 / 50 Output: Urine 0 / 0 Stool 1 / 1 Urine/Stool Mix 75 / 75 Urine Amount (Catheter) 725 / 725 Straight 725 / 725 Other: Date of Last Bowel Movement 03/11/18 03/11/18 # Bowel Movements 1 # Incontinent Bowel Movements 1 Result Diagrams: 03/12/18 04:47 03/12/18 04:17 Objective Remarks: GENERAL: Patient is 62 yo intubated and sedated SKIN: Warm and dry. HEAD: Normocephalic. EYES: No scleral icterus. No injection or drainage. NECK: Supple, trachea midline. No JVD or lymphadenopathy. CARDIOVASCULAR: Tachycardic without murmurs, gallops, or rubs. RESPIRATORY: Breath sounds equal bilaterally. No accessory muscle use. GASTROINTESTINAL: Abdomen soft, non-tender, nondistended. MUSCULOSKELETAL: No cyanosis, or edema. Neuro: Intubated, sedated Assessment and Plan - Assessment and Plan Plan: A/P Assessment and Plan Plan by system Neuro: Monitor neuro status, on Fentanyl infusion for sedation. Daily sedation vacation. Repeat CT brain today showd no acute abnormalities. Check EEG CT brain: Negative or acute process MRI brain: previously noted subarachnoid hemorrhage overlying the occipital lobes has resolved. Tiny trace of residual hemorrhage in the posterior lateral ventricles. Stable chronic white matter changes. No new or acute intracranial process. Pulm: Extubated and reintubated on 03/11 Continue vent support keep sats >92% Bronchodilators, ICU vent bundle. CTA chest: No PE, minimal consolidative changes left base SBT daily as amador CV: A. fib On Lopressor 50mg Q12 Monitor HR and BP keep MAP>65mmHg. Pravachol 20mg daily -Elevated troponin, type II demand ischemia NSTEMI - Lactic acid cleared 1.9- Echo 03/06 EF 50-55% -will not anticoagulate at this time given risk/benefit with recent head bleed Cortisol level: 41 Cards is following : Urinary retention Monitor renal function, electrolytes replacement per protocol. Will need K replacement today GI: Elevated AST, Alk phos Monitor LFT's, CT abd/pelvis without evidence of overt acute cholecystitis Resume tube feeds- Glucerna 1.5 with goal rate 45ml/hr ID: Gram negative bacteremia Urinary tract infection s/p Septic shock ID is following Continue with abx per ID ( Imipenem, Vanco ) ,Monitor for signs of infections ( Fever, WBC) Follow up on BC from today 03/07: Sputum cx: normal resp ramesh 03/08, 03/09 BC: NGTD 03/06 BC Coag negative staph 03/05 BC: E.coli bacteremia 03/01 BC: E.coli ESBL 03/01 Urine cx: GNR Heme: Anemia Thrombocytopenia likely 2nd sepsis -Monitor CBC, s/p transfuse 2u PRBC 03/06 Heme is following- Dr. Miller Hep PLT ab negative Sacral decubitus - present on admission - does not appear grossly infected - likely not the source of infection - management per wound care nurse Endo: SSI if needed for glycemic control On Synthroid 50mcg daily,. TSH: 0.47 GI prophylaxis- On Pepcid 20mg BID DVT prophylaxis- SCD, hold Heparin Sq due to recent PUTTIER bleed in January ( MRI brain 01/29) and severe thrombocytopenia Lines: peripheral IV's Level 3
[2018-03-12] MEDS: Chlorhexidine 0.12% Oral Kit 15 ML UDC OROPHARYNG SCH ×2 (09:06→20:09)
[2018-03-12] MEDS: Gabapentin 300 MG Capsule PO SCH ×3 (09:07→18:52)
[2018-03-12] MEDS: Metoprolol Tartrate 50 MG Tablet PO SCH (09:08)
[2018-03-12] MEDS: Famotidine 20 MG Tablet PO SCH ×2 (09:08→20:08)
[2018-03-12] MEDS: Potassium Chlor 20 mEq Premix 20 MEQ/100 ML PIGGYBACK IV.SIG PRN ×4 (09:10→20:09)
[2018-03-12 09:26] LABS: Lymphocytes 12 % (9-44); Monocytes 8 % (0-8)
[2018-03-12 09:27] LABS: Platelet Morphology Normal (Normal); Rouleaux Present
--- NOTE | 2018-03-12 11:31 | CT ---
EXAM DATE: 03/12/2018 11:06 AM EDT AGE/SEX: 62 years / Female INDICATIONS: Altered mental status CLINICAL DATA: This is the patient's initial encounter. Patient reports that signs and symptoms have been present for 4 - 6 days and indicates a pain score of 0/10. MEDICAL/SURGICAL HISTORY: Diabetes. Hypertension. Rheumatoid arthritis. Subarachnoid hemorrhage, Lupus Fusion, cervical. Aneurysm repair RADIATION DOSE: 66.35 CTDI (mGy) [place] [facility] [place]. . TECHNIQUE: CT of the head without contrast. Using automated exposure control and adjustment of the mA and/or kV according to patient size, radiation dose was kept as low as reasonably achievable to ob tain optimal diagnostic quality images. DICOM format image data is available electronically for revi ew and comparison. FINDINGS: Cerebrum: The ventricles are normal for age. No evidence of midline shift, mass lesion, hemorrhage or acute infarction. No extraaxial fluid collections are seen. Posterior Fossa: The cerebellum and brainstem are intact. The 4th ventricle is midline. The cerebe llopontine angle is unremarkable. Extracranial: The visualized portion of the orbits is intact. Minimal fluid in the mastoid air cells . Skull: The calvaria is intact. No evidence of skull fracture. CONCLUSION: 1. No acute intracranial abnormality. 2. Minimal fluid in the mastoid air cells. Electronically signed by: Devyn Davis MD 03/12/2018 11:29 AM EDT
[2018-03-12] MEDS: Dextrose 50% in Water 50 ML Vial IV.PUSH PRN ×2 (12:35→17:52)
[2018-03-12] MEDS: Collagenase Oint 30 GM Tube TOPICAL SCH (16:28)
[2018-03-12] MEDS: Dextrose 5%/NaCl 0.9% Inj 1,000 ML IV.CONT SCH (18:54)
[2018-03-12 20:04] LABS: Anion Gap 9 meq/L (5-15); Blood Urea Nitrogen 10 mg/dL (7-18); Calcium 6.8 mg/dL (8.5-10.1); Carbon Dioxide 20.4 meq/L (21.0-32.0); Chloride 113 meq/L (98-107); Glomerular Filtration Rate Greater Than 89 mL/min (>89); Glucose,Random 98 mg/dL (74-106); Sodium 142 meq/L (136-145)
[2018-03-12] MEDS ORDERED: Phenylephrine Inj 40 MG in Dextrose 5% in Water Inj 496 ML IV.CONT PRN ×2 (20:19)
[2018-03-12] MEDS ORDERED: Calcium Chloride Inj 2 GM in Sodium Chlor 0.9% Inj 100 ML IV.SIG ONE (20:22)
[2018-03-12 20:26] LABS: Total Protein 4.2 g/dL (6.4-8.2)
--- NOTE | 2018-03-12 21:04 | MG ---
cc: Paramjit Arellano MD, PhD DATE OF STUDY: 03/12/2018. TEST NUMBER: [id number]. TECHNIQUE: A 17-channel EEG. DESCRIPTION: The background rhythm reveals generalized slowing in the delta frequency 3-4 Hz. Amplitude is 10 microvolts. There is prominent muscle artifact. There were no lateralizing features identified. No epileptiform features identified. Photic stimulation was done with no significant driving response. INTERPRETATION: Abnormal study, consistent with a significant encephalopathy. Paramjit Arellano MD, PhD TOYA/NANO , 07:12 PM , 09:02 PM
[2018-03-12] MEDS ORDERED: Midazolam Inj 5 MG/ML 1 ML Vial ONE (21:11)
--- NOTE | 2018-03-12 21:44 | P.PCN ---
Date of procedure: 03/12/18 Procedure: DATE: CENTRAL LINE PLACEMENT: Right subclavian vein. INDICATION: Central venous access CONSENT Informed consent for procedure was obtained from patient's daughter after discussion of risk, benefits, alternatives by me. Signed consent is on the chart. DESCRIPTION OF THE PROCEDURE Cervical collar was removed and RN held midline neutral C-spine stabilization throughout the procedure; replaced upon completion of the procedure. The patient was placed in supine position, mild Trendelenburg. The skin was cleansed with Chloraprep x4. Additional barrier precautions included large sterile drape, sterile gloves, sterile gown, face mask, and hat. 1 % lidocaine was used for local anesthesia. Under direct ultrasound guidance and on the second attempt, the vein was accessed with an introducer needle. The guide wire was advanced and the tract was dilated. Using Seldinger technique a 7 German 20 cm antimicrobial coated triple-lumen catheter was advanced to a depth of 16 centimeters. The guide wire was removed. All ports had good return of dark venous blood and flushed easily with saline. The central line was secured with StatLock. A sterile dressing with antibiotic disc was applied. ESTIMATED BLOOD LOSS: Minimal COMPLICATIONS: No apparent complications. STAT chest x-ray is ordered, pending.
--- NOTE | 2018-03-12 22:07 | XR ---
EXAM DATE: 03/12/2018 9:58 PM EDT AGE/SEX: 62 years / Female INDICATIONS: Evaluate central line placement CLINICAL DATA: This is the patient's subsequent encounter. Patient reports that signs and symptoms h ave been present for 4 - 6 days and indicates a pain score of Nonresponsive. MEDICAL/SURGICAL HISTORY: . Diabetes. Hypertension. Rheumatoid arthritis. Subarachnoid hemorrha ge, Lupus . Fusion, cervical. Aneurysm repair COMPARISON: [facility], CHEST 1V SINGLE AP, 03/11/2018. . FINDINGS: Right central line tip is in the right atrium. Endotracheal tube tip is in satisfactory position. Morales ogastric tube enters the stomach. Bilateral mostly basilar airspace disease and pleural effusions. No pneumothorax. CONCLUSION: Placement of a right central line with tip in right atrium. No pneumothorax. Electronically signed by: Sj Do MD 03/12/2018 10:06 PM EDT
[2018-03-13] MEDS: Insulin NovoLIN Regular Correctional Sugar Inj SQ SCH ×6 (01:31→12:12)
[2018-03-13] MEDS: Oral Hygiene Kit OROPHARYNG SCH ×4 (01:32→15:36)
[2018-03-13 03:52] LABS: DS DNA Ab (Crithidia) POSITIVE (NEGATIVE)
[2018-03-13] MEDS: Levothyroxine 50 MCG Tablet PO SCH (05:04)
[2018-03-13] MEDS ORDERED: Pharmacy Ordered Lab Info OTHER ONE (05:45)
[2018-03-13] MEDS: fentaNYL 10 mcg/mL Premix Drip 2,500 MCG/250 ML BAG IV.SIG PRN (05:49)
[2018-03-13 06:21] LABS: Baso % (Auto) 0.3 % (0.0-2.0); Eos % (Auto) 0.2 % (0.0-4.0); Hematocrit 25.3 % (35.0-46.0); Hemoglobin 8.6 gm/dL (11.6-15.3); Lymph # (Auto) 0.6 th/mm3 (1.0-4.8); Lymph % (Auto) 17.7 % (9.0-44.0); Mean Corpuscular HGB Conc 33.9 % (32.0-36.0); Mean Corpuscular Hemoglobin 31.5 pg (27.0-34.0); Mean Corpuscular Volume 92.9 fL (80.0-100.0); Mean Platelet Volume 10.6 fL (7.0-11.0); Mono # (Auto) 0.2 th/mm3 (0.0-0.9); Mono % (Auto) 6.7 % (0.0-8.0); Neut # (Auto) 2.4 th/mm3 (1.8-7.7); Neut % (Auto) 75.1 % (16.0-70.0); Platelet Count 94 th/mm3 (150-450); Red Blood Count 2.72 mil/mm3 (4.00-5.30); Red Cell Distribution Width 17.1 % (11.6-17.2); White Blood Count 3.1 th/mm3 (4.0-11.0)
[2018-03-13] MEDS: Vancomycin Inj 1,000 MG in Sodium Chlor 0.9% Inj 250 ML IV.SIG SCH ×2 (06:50→18:02)
[2018-03-13 07:03] LABS: Alanine Aminotransferase 24 U/L (10-53); Albumin 1.1 g/dL (3.4-5.0); Alkaline Phosphatase 285 U/L (45-117); Anion Gap 9 meq/L (5-15); Aspartate Aminotransferase 42 U/L (15-37); Blood Urea Nitrogen 8 mg/dL (7-18); Calcium 7.7 mg/dL (8.5-10.1); Carbon Dioxide 20.9 meq/L (21.0-32.0); Chloride 113 meq/L (98-107); Glomerular Filtration Rate Greater Than 89 mL/min (>89); Glucose,Random 129 mg/dL (74-106); Magnesium 1.4 mg/dL (1.5-2.5); Phosphorus 2.4 mg/dL (2.5-4.9); Potassium 4.1 meq/L (3.5-5.1); Sodium 143 meq/L (136-145); Total Protein 4.3 g/dL (6.4-8.2); Troponin I 0.08 ng/mL (0.02-0.05)
[2018-03-13 08:04] LABS: Lymphocytes 20 % (9-44); Monocytes 3 % (0-8)
[2018-03-13 08:05] LABS: Platelet Morphology Normal (Normal)
[2018-03-13] MEDS: Famotidine 20 MG Tablet PO SCH ×2 (08:43→19:59)
[2018-03-13] MEDS: Chlorhexidine 0.12% Oral Kit 15 ML UDC OROPHARYNG SCH ×2 (08:44→19:59)
[2018-03-13] MEDS: Gabapentin 300 MG Capsule PO SCH ×3 (08:44→18:03)
[2018-03-13] MEDS: Dextrose 5%/NaCl 0.9% Inj 1,000 ML IV.CONT SCH ×2 (08:59→22:08)
--- NOTE | 2018-03-13 09:36 | ECG ---
Date Performed: 03/12/2018 Time Performed: 19:03:50 PTAGE: 62 years EKG: Sinus rhythm LOW QRS VOLTAGE IN EXTREMITY LEADS MODERATE T-WAVE ABNORMALITY, CONSIDER ANTERIOR ISCHEMIA ABNORMAL ECG Since the PREVIOUS TRACING , no significant change noted PREVIOUS TRACIN03/01/2018 09.37 DOCTOR: Juan Rowell Interpretating Date/Time 03/13/2018 09:32:33
[2018-03-13] MEDS: Magnesium Oxide 400 MG Tablet PO PRN ×2 (10:43→19:59)
--- NOTE | 2018-03-13 12:40 | P.PNCC ---
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 she was sent to [facility] for procedural management of these. She was then transferred to [facility] on 02/28. Please see the dictated hospitalist consult note on 02/28 on admission to [facility] for a detailed record of the hospital course while at [facility]. Today, she was found to be very tachycardic in the 160s and hypotensive with sbp in the 70s. She was emergently transferred to the ICU after rapid response was called for evaluation and management of her hypotension. Of note, she did not have iv access. I met her on arrival to the ICU. I placed 2 18g piv. 12-lead EKG confirms sinus tachycardia. I due to the fast rate, I gave 6mg adenosine to slow it down diagnostically, and it slowed down temporarily to a HR in the 70s, confirming sinus rhythm. I performed bedside critical care echocardiography which demonstrates grossly preserve biventricular function. in particular, RV is decompressed and well-functioning. IVC is completely collapsable. no pericardial effusion. I gave her 3L NS bolus ivf which improved her SBP to 110s and decreased her HR to 110s. She is afebrile. stat CBC shows anemia (history of recent femoral artery pseudoaneurysm), CMP demonstrates elevated AST and Alk phos, elevated lactate at 3.7. Cr elevated above baseline. Patient denies any complaints to me. she is mostly northern irish speaking, but communicates in basic ukrainian. specifically denies chest pain, shortness of breath, fever/chills, nausea, vomiting, abdominal pain, constipation, diarrhea. I discussed with her family, she has been eating and drinking well even up to today. ROS otherwise negative. 03/02 Patient is awake lying in bed in TRAV. On room air oxygen. T:103.2 this morning She was hypotensive overnight initially placed on Neosyn now off pressor with BP 147/67 with MAP 96. 03/03 No events overnight. Seems more awake and alert this morning. T: 100.2 at midnight. BP and HR better ( 119/58 with MAP 83mmHg). On no pressors. BC from 03/01: E.coli ESBL 6/30: clinically improving. slightly tachycardic. on appropriate therapy for her ESBL e. coli. denies complaints. hemodynamically stable. on room air. 03/05: Patient developed worsening respiratory distress yesterday and required endotracheal intubation and was placed on mechanical ventilation. Hypotension overnight for which patient was started on phenylephrine. Developed A. fib with RVR and was started on amiodarone gtt. 03/06 Patient remains sedated and intubated. Tmax 101.6, On Amio drip. 03/07 Patient remains intubated off sedation. s/p transfusion 2u PRBC yesterday. Tolerating tube feeds. Afebrile. Off Amio drip. 03/08 Patient remains intubated. T:100.9 last night. 03/09 No events overnight. Tolerated CPAP for approx 4 hrs yesterday. Off sedation. Afebrile. 03/10 No events overnight T:100.1 at 4am, Awake, patient was on CPAP for short time yesterday and placed back on PRVC mode for low TV and tachycardia. 03/11 No events overnight. Tolerated CPAP x 4hrs yesterday. T:100.6 yesterday. On no sedation. 03/12 Patient was extubated yesterday reintubated last night for resp distress and AMS. Afebrile. On Diprivan infusion for sedation. 03/13: Remains intubated critical, remains encephalopathy unresponsive off sedation. Afebrile EEG showed significant encephalopathy no seizures. Right subclavian central line placed, remains on Luis-Synephrine to keep map above 65 Objective Vital Signs / I&O: Vital Signs 03/12/18 14:45 03/12/18 16:00 03/12/18 20:00 Temperature 98.5 F 97.4 F L Pulse Rate 74 78 Respiratory Rate 24 20 19 Blood Pressure 91/52 L 104/62 Pulse Oximetry 100 100 100 03/12/18 23:33 03/13/18 00:00 03/13/18 03:31 Temperature 97.5 F L Pulse Rate 74 Respiratory Rate 16 17 17 Blood Pressure 104/57 L Pulse Oximetry 100 100 100 03/13/18 04:00 03/13/18 06:15 03/13/18 06:30 Temperature 97.6 F Pulse Rate 82 90 87 Respiratory Rate 16 16 16 Blood Pressure 95/53 L 101/52 L 94/57 L Pulse Oximetry 100 100 100 03/13/18 06:45 03/13/18 07:00 03/13/18 07:15 Temperature Pulse Rate 87 81 82 Respiratory Rate 17 17 16 Blood Pressure 92/53 L 89/55 L 89/53 L Pulse Oximetry 100 100 100 03/13/18 07:19 03/13/18 07:30 03/13/18 07:45 Temperature Pulse Rate 87 83 Respiratory Rate 16 16 16 Blood Pressure 83/47 L 83/50 L Pulse Oximetry 100 100 100 03/13/18 07:49 03/13/18 08:00 03/13/18 08:15 Temperature 97.8 F Pulse Rate 75 76 77 Respiratory Rate 16 16 16 Blood Pressure 94/53 L 99/56 L 102/56 L Pulse Oximetry 100 100 100 03/13/18 08:30 03/13/18 08:45 03/13/18 09:00 Temperature Pulse Rate 74 72 73 Respiratory Rate 16 16 17 Blood Pressure 108/61 114/57 L 104/58 L Pulse Oximetry 100 100 100 03/13/18 09:15 03/13/18 09:30 03/13/18 09:45 Temperature Pulse Rate 79 83 76 Respiratory Rate 17 20 19 Blood Pressure 108/56 L 102/56 L 105/57 L Pulse Oximetry 100 100 100 03/13/18 10:00 03/13/18 10:15 03/13/18 10:30 Temperature Pulse Rate 77 79 77 Respiratory Rate 17 19 22 Blood Pressure 96/55 L 96/63 L 90/56 L Pulse Oximetry 100 100 100 03/13/18 10:45 03/13/18 11:00 03/13/18 11:11 Temperature Pulse Rate 76 76 Respiratory Rate 20 25 H 23 Blood Pressure 98/60 L 106/60 Pulse Oximetry 100 100 100 03/13/18 11:15 03/13/18 11:30 03/13/18 11:45 Temperature Pulse Rate 122 H 84 84 Respiratory Rate 20 17 19 Blood Pressure 136/89 109/56 L 109/55 L Pulse Oximetry 93 L 100 100 03/13/18 12:00 Temperature 97.3 F L Pulse Rate 86 Respiratory Rate 19 Blood Pressure 104/58 L Pulse Oximetry 100 Intake & Output 03/12/18 03/13/18 03/13/18 18:59 06:59 18:59 Intake Total 1650 / 1650 1450 / 1450 Output Total 925 / 925 1200 / 1200 Balance 725 / 725 250 / 250 Weight 63.1 kg Intake: IV 1400 / 1400 1450 / 1450 D5W/Normal Saline Inj 1,000 ML 1000 / 1000 @ 84 mls/hr IV.CONT .[id number] KARINA Rx#:[id number] Primaxin Inj 500 MG In NS Inj 200 / 200 200 / 200 100 ML @ 200 mls/hr IV.SIG Q6H KARINA Rx#:[id number] KCl 20 mEq Premix Inj 20 meq In 200 / 200 100 ml @ 50 mls/hr IV.SIG Q2H PRN Rx#:[id number] Vancomycin Inj 1,000 MG In NS 500 / 500 Inj 250 ML @ 250 mls/hr IV.SIG Q12H KARINA Rx#:[id number] fentaNYL 10 mcg/mL Premix Drip 500 / 500 250 / 250 2,500 mcg In 250 ml @ 50 MCG/HR 5 mls/hr IV.SIG TITRATE PRN Rx #:[id number] Oral 0 / 0 0 / 0 Tube Feeding 250 / 250 0 / 0 Tube Irrigant 0 / 0 0 / 0 Water Bolus Amount 0 / 0 0 / 0 Output: Urine 0 / 0 0 / 0 Stool 25 / 25 0 / 0 Urine/Stool Mix 0 / 0 0 / 0 Urine Amount (Catheter) 900 / 900 1200 / 1200 Straight 900 / 900 1200 / 1200 Other: Date of Last Bowel Movement 03/12/18 03/13/18 03/13/18 # Bowel Movements 1 2 # Incontinent Bowel Movements 1 2 # Emeses 1 # Oral Regurgitations 1 Result Diagrams: 03/13/18 05:20 03/13/18 05:20 Objective Remarks: GENERAL: Patient is 62 yo intubated and sedated, currently sedation on hold SKIN: Warm and dry. HEAD: Normocephalic. EYES: No scleral icterus. No injection or drainage. NECK: Supple, trachea midline. No JVD or lymphadenopathy. CARDIOVASCULAR: Tachycardic without murmurs, gallops, or rubs. RESPIRATORY: Breath sounds equal bilaterally. No accessory muscle use. GASTROINTESTINAL: Abdomen soft, non-tender, nondistended. MUSCULOSKELETAL: No cyanosis, or edema. Neuro: Intubated, sedated, no spontaneous eye opening no spontaneous movements noted Assessment and Plan - Assessment and Plan Plan: A/P Assessment and Plan Plan by system Neuro: Monitor neuro status, on Fentanyl infusion for sedation, currently held. Daily sedation vacation. Repeat CT brain today showed no acute abnormalities. EEG significant encephalopathy CT brain: Negative or acute process MRI brain: previously noted subarachnoid hemorrhage overlying the occipital lobes has resolved. Tiny trace of residual hemorrhage in the posterior lateral ventricles. Stable chronic white matter changes. No new or acute intracranial process. Pulm: Extubated and reintubated on 03/11 Continue vent support keep sats >92% Bronchodilators, ICU vent bundle. CTA chest: No PE, minimal consolidative changes left base SBT daily as amador, however mental status will not permit extubation CV: A. fib On Lopressor 50mg Q12 Monitor HR and BP keep MAP>65mmHg. Pravachol 20mg daily - Elevated troponin, type II demand ischemia NSTEMI - Lactic acid cleared 1.9- Echo 03/06 EF 50-55% -will not anticoagulate at this time given risk/benefit with recent head bleed Cortisol level: 41 Cards is following : Urinary retention Monitor renal function, electrolytes replacement per protocol. Will need K replacement today GI: Elevated AST, Alk phos Monitor LFT's, CT abd/pelvis without evidence of overt acute cholecystitis Resumed tube feeds- Glucerna 1.5 with goal rate 45ml/hr ID: Urinary tract infection s/p Septic shock ID is following Continue with abx per ID ( Imipenem, Vanco ) ,Monitor for signs of infections ( Fever, WBC) Follow up on BC from today 03/07: Sputum cx: normal resp ramesh 03/08, 03/09 BC: NGTD 03/06 BC Coag negative staph 03/05 BC: E.coli bacteremia 03/01 BC: E.coli ESBL 03/01 Urine cx: GNR Heme: Anemia Thrombocytopenia likely 2nd sepsis -Monitor CBC, s/p transfuse 2u PRBC 03/06 Heme is following- Dr. Miller Hep PLT ab negative Sacral decubitus - present on admission - does not appear grossly infected - likely not the source of infection - management per wound care nurse Endo: SSI if needed for glycemic control On Synthroid 50mcg daily,. TSH: 0.47 GI prophylaxis- On Pepcid 20mg BID DVT prophylaxis- SCD, hold Heparin Sq due to recent [employer] bleed in January ( MRI brain 01/29) and thrombocytopenia Lines: peripheral IV's Level 3 Son updated at bedside
--- NOTE | 2018-03-13 13:34 | P.PNID ---
Infectious Disease Brief Note Notes reviewed. Patient is currently on neosynephrine. She developed low blood pressure earlier. She has been taken off sedation. Noted to have encephalopathy on EEG. Moves the right toes to command. That is all the command I can get her to follow currently. Afebrile. Intubated on the ventilator. 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 She underwent C4 through T1 posterior fusion and resection of a C6 mass on 2017. The patient was noted to have a hospital course complicated by sepsis including UTI due to ESBL organism. She developed ESBL E. coli bacteremia and was transferred to intensive care unit. She remains on the ventilator. PAST MEDICAL AND SURGICAL HISTORY: Diabetes mellitus, hypertension, hypothyroidism, systemic lupus erythematosus, rheumatoid arthritis, anemia, recent subarachnoid hemorrhage, C6 mass resection, hysterectomy, bladder sling, appendectomy, C4-C7 laminectomy, C4-T1 posterior fusion. ALLERGIES: 1. CODEINE. 2. NITROGLYCERIN. Antibiotics: Imipenem. Vancomycin. SOCIAL HISTORY: The patient is . No tobacco, no alcohol, no illicit drugs. FAMILY HISTORY: Noncontributory. Objective: Labs: 03/12/18 00:46 Blood - Peripheral Aerobic Blood Culture - Preliminary No growth in 1 day 03/12/18 00:46 Blood - Peripheral Anaerobic Blood Culture - Preliminary No growth in 1 day 03/12/18 00:40 Blood - Peripheral Aerobic Blood Culture - Preliminary No growth in 1 day 03/12/18 00:40 Blood - Peripheral Anaerobic Blood Culture - Preliminary No growth in 1 day 03/09/18 19:21 Blood - Peripheral Aerobic Blood Culture - Preliminary No growth in 4 days 03/09/18 19:21 Blood - Peripheral Anaerobic Blood Culture - Preliminary No growth in 4 days 03/09/18 19:28 Blood - Peripheral Aerobic Blood Culture - Preliminary No growth in 4 days 03/09/18 19:28 Blood - Peripheral Anaerobic Blood Culture - Preliminary No growth in 4 days 03/08/18 11:00 Blood - Peripheral Aerobic Blood Culture - Final No growth in 5 days 03/08/18 11:00 Blood - Peripheral Anaerobic Blood Culture - Final No growth in 5 days 03/08/18 11:09 Blood - Peripheral Aerobic Blood Culture - Final No growth in 5 days 03/08/18 11:09 Blood - Peripheral Anaerobic Blood Culture - Final No growth in 5 days 03/11/18 22:30 Sputum - Endotracheal Gram Stain - Final 03/11/18 22:30 Sputum - Endotracheal Sputum Culture - Pending 03/09/18 16:45 Sputum - Endotracheal Gram Stain - Final 03/09/18 16:45 Sputum - Endotracheal Sputum Culture - Final Heavy growth normal respiratory ramesh 03/06/18 05:12 Blood - Peripheral Aerobic Blood Culture - Final Staphylococcus coag negative 03/06/18 05:12 Blood - Peripheral Anaerobic Blood Culture - Final Staphylococcus epidermidis 03/05/18 15:33 Blood - Peripheral Aerobic Blood Culture - Final No growth in 5 days 03/05/18 15:33 Blood - Peripheral Anaerobic Blood Culture - Final Escherichia coli ESBL positive 03/08/18 17:55 Catheterized Urine Urine Culture - Final No growth in 48 hours Lab - Hematology Results 03/12/18 03/13/18 04:47 05:20 WBC 2.5 L 3.1 L RBC 2.59 L 2.72 L Hgb 8.0 L 8.6 L Hct 23.9 L 25.3 L MCV 92.0 92.9 MCH 31.0 31.5 MCHC 33.7 33.9 RDW 17.0 17.1 Plt Count 69 L 94 L D MPV 10.5 10.6 Prelim Diff (Auto) Slide review pending Slide review pending Neut % (Auto) 64.6 75.1 H Lymph % (Auto) 26.3 17.7 [place] % (Auto) 8.2 H 6.7 Eos % (Auto) 0.4 0.2 Baso % (Auto) 0.5 0.3 Neut # (Auto) 1.6 L 2.4 Lymph # (Auto) 0.7 L 0.6 L [place] # (Auto) 0.2 0.2 Eos # (Auto) 0.0 0.0 Baso # (Auto) 0.0 0.0 WBC Differential Manual diff final Manual diff final Seg Neuts % (Manual) 67 47 Band Neuts % (Manual) 13 H 29 H Lymphocytes % (Manual) 12 20 Monocytes % (Manual) 8 3 Basophils % (Manual) 1 Abs Neuts (Manual) 2.0 2.4 Differential Comment . . Platelet Estimate Low L Low L Platelet Morphology Normal Normal Rouleaux Present H 03/13/18 03/13/18 03/13/18 05:20 05:20 07:55 Sodium 143 Potassium 4.1 Cancelled Chloride 113 H Carbon Dioxide 20.9 L Anion Gap 9 BUN 8 Creatinine Less than 0.15 L Estimated GFR Greater than 89 POC Glucose 143 H Random Glucose 129 H Lactic Acid Calcium 7.7 L D Prot Corrected Calcium Phosphorus 2.4 L Magnesium 1.4 L Total Bilirubin 0.4 AST 42 H ALT 24 Alkaline Phosphatase 285 H Troponin I 0.08 H Total Protein 4.3 L Albumin 1.1 L Cortisol PHYSICAL EXAMINATION: GENERAL: Patient in no acute distress. HEENT: Head is atraumatic. Extraocular movements grossly intact. No icterus. Unable to fully assess because she is intubated. NECK: No adenopathy LUNGS: Bibasilar rhonchi HEART: Regular S1 and S2. No murmurs, rubs or gallops. ABDOMEN: Bowel sounds present, soft, no tenderness appreciated. EXTREMITIES: No clubbing, cyanosis or edema. SKIN: Warm and moist. NEUROLOGIC: Unable to fully assess since the patient cannot cooperate. PSYCHIATRIC: Unable to fully assess. IMPRESSION: 1. Severe sepsis. Extended-spectrum beta-lactamase Escherichia coli. 2. Urinary tract infection due to Extended-spectrum beta-lactamase Escherichia coli, which is likely the source of the sepsis. 3. Acute respiratory failure. 4. Encephalopathy. 5. Bacteremia due to coag negative staph. RECOMMENDATIONS: 1. Continue imipenem. 2. Continue vancomycin 3. Monitor temperature. 4. Monitor clinical status. Discussed with RN and patient's at bedside.
[2018-03-13] MEDS: Collagenase Oint 30 GM Tube TOPICAL SCH (14:51)
[2018-03-13] MEDS ORDERED: Dextrose 50% in Water 50 ML Vial IV.PUSH PRN (16:56)
[2018-03-13 17:07] LABS: Magnesium 1.4 mg/dL (1.5-2.5); Phosphorus 2.8 mg/dL (2.5-4.9)
[2018-03-14 04:00] LABS: Hematocrit 22.5 % (35.0-46.0); Hemoglobin 7.8 gm/dL (11.6-15.3); Mean Corpuscular HGB Conc 34.9 % (32.0-36.0); Mean Corpuscular Hemoglobin 31.9 pg (27.0-34.0); Mean Corpuscular Volume 91.3 fL (80.0-100.0); Mean Platelet Volume 9.9 fL (7.0-11.0); Platelet Count 102 th/mm3 (150-450); Red Blood Count 2.46 mil/mm3 (4.00-5.30); Red Cell Distribution Width 16.5 % (11.6-17.2); White Blood Count 2.7 th/mm3 (4.0-11.0)
[2018-03-14] MEDS: Oral Hygiene Kit OROPHARYNG SCH ×4 (04:00→17:10)
[2018-03-14 04:27] LABS: Anion Gap 7 meq/L (5-15); Blood Urea Nitrogen 6 mg/dL (7-18); Calcium 7.2 mg/dL (8.5-10.1); Carbon Dioxide 23.8 meq/L (21.0-32.0); Chloride 110 meq/L (98-107); Glomerular Filtration Rate Greater Than 89 mL/min (>89); Glucose,Random 75 mg/dL (74-106); Potassium 3.7 meq/L (3.5-5.1); Sodium 141 meq/L (136-145)
[2018-03-14 04:40] LABS: Total Protein 4.2 g/dL (6.4-8.2)
[2018-03-14 04:48] LABS: Magnesium 1.3 mg/dL (1.5-2.5); Phosphorus 2.9 mg/dL (2.5-4.9)
[2018-03-14] MEDS: Levothyroxine 50 MCG Tablet PO SCH (05:30)
[2018-03-14] MEDS: Vancomycin Inj 1,000 MG in Sodium Chlor 0.9% Inj 250 ML IV.SIG SCH ×2 (05:30→17:09)
[2018-03-14] MEDS: Magnesium Oxide 400 MG Tablet PO PRN (05:37)
[2018-03-14] MEDS: Insulin NovoLIN Regular Correctional Sugar Inj SQ SCH ×3 (06:00→17:07)
--- NOTE | 2018-03-14 06:21 | XR ---
EXAM DATE: 03/14/2018 6:08 AM EDT AGE/SEX: 62 years / Female INDICATIONS: Short of breath. CLINICAL DATA: This is the patient's subsequent encounter. Patient reports that signs and symptoms h ave been present for 2 weeks and indicates a pain score of 0/10. MEDICAL/SURGICAL HISTORY: . Diabetes. Hypertension. Rheumatoid arthritis. Subarachnoid hemorrh age, Lupus . Fusion, cervical. COMPARISON: [facility] – [place], CHEST 1V SINGLE AP, 03/12/2018. . FINDINGS: Stable NGT, right subclavian central line and ETT. Persistent small bilateral pleural effusions with lower lobe airspace disease. Cardiomediastinal contours are stable. Remainder of the exam is unchange d. CONCLUSION: 1. No significant interval change. 2. Stable tubes and lines. 3. Stable small bilateral pleural effusions and associated lower lung zone airspace disease. Electronically signed by: Harrison Edmonds MD 03/14/2018 6:20 AM EDT
[2018-03-14] MEDS: Chlorhexidine 0.12% Oral Kit 15 ML UDC OROPHARYNG SCH ×2 (08:03→20:00)
[2018-03-14] MEDS: Gabapentin 300 MG Capsule PO SCH ×3 (08:03→17:11)
[2018-03-14] MEDS: Famotidine 20 MG Tablet PO SCH ×2 (08:04→21:17)
[2018-03-14] MEDS: Dextrose 5%/NaCl 0.9% Inj 1,000 ML IV.CONT SCH ×2 (10:26→23:11)
--- NOTE | 2018-03-14 11:55 | P.PNCC ---
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 she was sent to [facility] for procedural management of these. She was then transferred to [facility] on 02/28. Please see the dictated hospitalist consult note on 02/28 on admission to [facility] for a detailed record of the hospital course while at [facility]. Today, she was found to be very tachycardic in the 160s and hypotensive with sbp in the 70s. She was emergently transferred to the ICU after rapid response was called for evaluation and management of her hypotension. Of note, she did not have iv access. I met her on arrival to the ICU. I placed 2 18g piv. 12-lead EKG confirms sinus tachycardia. I due to the fast rate, I gave 6mg adenosine to slow it down diagnostically, and it slowed down temporarily to a HR in the 70s, confirming sinus rhythm. I performed bedside critical care echocardiography which demonstrates grossly preserve biventricular function. in particular, RV is decompressed and well-functioning. IVC is completely collapsable. no pericardial effusion. I gave her 3L NS bolus ivf which improved her SBP to 110s and decreased her HR to 110s. She is afebrile. stat CBC shows anemia (history of recent femoral artery pseudoaneurysm), CMP demonstrates elevated AST and Alk phos, elevated lactate at 3.7. Cr elevated above baseline. Patient denies any complaints to me. she is mostly ukrainian speaking, but communicates in basic Nepali. specifically denies chest pain, shortness of breath, fever/chills, nausea, vomiting, abdominal pain, constipation, diarrhea. I discussed with her family, she has been eating and drinking well even up to today. ROS otherwise negative. 03/02 Patient is awake lying in bed in TRAV. On room air oxygen. T:103.2 this morning She was hypotensive overnight initially placed on Neosyn now off pressor with BP 147/67 with MAP 96. 03/03 No events overnight. Seems more awake and alert this morning. T: 100.2 at midnight. BP and HR better ( 119/58 with MAP 83mmHg). On no pressors. BC from 03/01: E.coli ESBL 6/30: clinically improving. slightly tachycardic. on appropriate therapy for her ESBL e. coli. denies complaints. hemodynamically stable. on room air. 03/05: Patient developed worsening respiratory distress yesterday and required endotracheal intubation and was placed on mechanical ventilation. Hypotension overnight for which patient was started on phenylephrine. Developed A. fib with RVR and was started on amiodarone gtt. 03/06 Patient remains sedated and intubated. Tmax 101.6, On Amio drip. 03/07 Patient remains intubated off sedation. s/p transfusion 2u PRBC yesterday. Tolerating tube feeds. Afebrile. Off Amio drip. 03/08 Patient remains intubated. T:100.9 last night. 03/09 No events overnight. Tolerated CPAP for approx 4 hrs yesterday. Off sedation. Afebrile. 03/10 No events overnight T:100.1 at 4am, Awake, patient was on CPAP for short time yesterday and placed back on PRVC mode for low TV and tachycardia. 03/11 No events overnight. Tolerated CPAP x 4hrs yesterday. T:100.6 yesterday. On no sedation. 03/12 Patient was extubated yesterday reintubated last night for resp distress and AMS. Afebrile. On Diprivan infusion for sedation. 03/13: Remains intubated critical, remains encephalopathy unresponsive off sedation. Afebrile EEG showed significant encephalopathy no seizures. Right subclavian central line placed, remains on Luis-Synephrine to keep map above 65 03/14: Remains encephalopathy again unresponsive. Eyes are open but no tracking did not follow commands. Remains leukopenic. Weaned off Luis-Synephrine. Not tolerating CPAP due to low tidal volume Objective Vital Signs / I&O: Vital Signs 03/13/18 12:00 03/13/18 15:09 03/13/18 16:00 Temperature 97.3 F L 97.6 F Pulse Rate 86 98 H Respiratory Rate 19 21 17 Blood Pressure 104/58 L 92/53 L Pulse Oximetry 100 100 100 03/13/18 20:00 03/13/18 20:52 03/14/18 00:00 Temperature 98.7 F 97.5 F L Pulse Rate 95 H 88 Respiratory Rate 18 18 17 Blood Pressure 99/58 L 96/55 L Pulse Oximetry 100 03/14/18 01:19 03/14/18 04:00 03/14/18 04:02 Temperature 97.9 F Pulse Rate 108 H Respiratory Rate 19 18 16 Blood Pressure 107/65 Pulse Oximetry 100 03/14/18 07:21 03/14/18 08:27 03/14/18 11:39 Temperature Pulse Rate Respiratory Rate 16 18 17 Blood Pressure Pulse Oximetry 100 100 100 Intake & Output 03/13/18 03/14/18 03/14/18 18:59 06:59 18:59 Intake Total 350 / 350 2361 / 2361 1000 / 1000 Output Total 1600 / 1600 1550 / 1550 Balance -1250 / -1250 811 / 811 1000 / 1000 Weight 66.9 kg Intake: IV 350 / 350 2050 / 2050 1000 / 1000 D5W/Normal Saline Inj 1,000 ML 1000 / 1000 1000 / 1000 @ 84 mls/hr IV.CONT .[id number] K[facility]INA Rx#:[id number] Primaxin Inj 500 MG In NS Inj 100 / 100 300 / 300 100 ML @ 200 mls/hr IV.SIG Q6H [facility] Rx#:[id number] Vancomycin Inj 1,000 MG In NS 250 / 250 500 / 500 Inj 250 ML @ 250 mls/hr IV.SIG Q12H [facility] Rx#:[id number] fentaNYL 10 mcg/mL Premix Drip 250 / 250 2,500 mcg In 250 ml @ 50 MCG/HR 5 mls/hr IV.SIG TITRATE PRN Rx #:[id number] Tube Feeding 0 / 0 111 / 111 Tube Irrigant 200 / 200 Output: Urine Amount (Catheter) 1600 / 1600 1550 / 1550 Indwelling Urethral Catheter 1600 / 1600 1550 / 1550 Other: Date of Last Bowel Movement 03/13/18 03/13/18 # Incontinent Bowel Movements 2 1 Result Diagrams: 03/14/18 03:40 03/14/18 03:40 Objective Remarks: GENERAL: Patient is 62 yo intubated and sedated, currently sedation on hold SKIN: Warm and dry. HEAD: Normocephalic. EYES: No scleral icterus. No injection or drainage. NECK: Supple, trachea midline. No JVD or lymphadenopathy. CARDIOVASCULAR: Tachycardic without murmurs, gallops, or rubs. RESPIRATORY: Breath sounds equal bilaterally. No accessory muscle use. Failing CPAP due to low tidal volumes GASTROINTESTINAL: Abdomen soft, non-tender, nondistended. MUSCULOSKELETAL: No cyanosis, or edema. Neuro: Intubated, sedated, opens eyes, do not follow commands. Intermittent jerking movements of bilateral upper extremity, no purposeful movements noted Assessment and Plan - Assessment and Plan Plan: A/P Assessment and Plan Plan by system Neuro: Severe metabolic encephalopathy Recent aneurysmal subarachnoid hemorrhage treated at [facility] in January 2018 Monitor neuro status, DC all sedation. Encephalopathy most likely metabolic from severe sepsis Repeat CT brain today showed no acute abnormalities. EEG significant encephalopathy, CT brain: Negative or acute process MRI brain: previously noted subarachnoid hemorrhage overlying the occipital lobes has resolved. Tiny trace of residual hemorrhage in the posterior lateral ventricles. Stable chronic white matter changes. No new or acute intracranial process. Pulm: Acute hypoxemic respiratory failure HCAP Extubated and reintubated on 03/11, failing CPAP trials due to low tidal volumes Continue vent support keep sats >92% Bronchodilators, ICU vent bundle. CTA chest: No PE, minimal consolidative changes left base SBT daily as amador, however mental status will not permit extubation, also low tidal volumes CV: A. fib Septic shock On Luis-Synephrine to keep map above 65 currently weaned off Holding Lopressor 50mg Q12 Monitor HR and BP keep MAP>65mmHg. Pravachol 20mg daily - Elevated troponin, type II demand ischemia NSTEMI - Lactic acid cleared 1.9- Echo 03/06 EF 50-55% - Will not anticoagulate at this time given risk/benefit with recent head bleed Cortisol level: 41 Cards is following : Urinary retention Monitor renal function, electrolytes replacement per protocol. Replace electrolytes as needed GI: Elevated AST, Alk phos Monitor LFT's, CT abd/pelvis without evidence of overt acute cholecystitis Resumed tube feeds- Glucerna 1.5 with goal rate 45ml/hr ID: Urinary tract infection ESBL E. coli bacteremia s/p Septic shock ID is following Continue with abx per ID ( Imipenem, Vanco ) ,Monitor for signs of infections ( Fever, WBC) Follow up blood cultures negative 03/11 sputum GNR 03/07: Sputum cx: NG 03/08, 03/09 BC: NGTD 03/06 BC Coag negative staph 03/05 BC: E.coli bacteremia 03/01 BC: E.coli ESBL 03/01 Urine cx: GNR Heme: Anemia Thrombocytopenia likely 2nd sepsis -Monitor CBC, s/p transfuse 2u PRBC 03/06 Heme is following- Dr. Miller Hep PLT ab negative Sacral decubitus - present on admission - does not appear grossly infected - likely not the source of infection - management per wound care nurse Endo: SSI if needed for glycemic control On Synthroid 50mcg daily,. TSH: 0.47 GI prophylaxis- On Pepcid 20mg BID DVT prophylaxis- SCD, hold Heparin Sq due to recent [employer] bleed in January ( MRI brain 01/29) and thrombocytopenia Lines: peripheral IV's CCT 35. Patient is more encephalopathic and critical remains septic sputum culture with gram-negative rods. If no improvement in next 24-48 hours will get palliative care consult
--- NOTE | 2018-03-14 13:32 | P.PNID ---
Subjective Remarks: Patient is on the ventilator. Now off Luis-Synephrine. More awake. Opens eyes. Squeezes the right hand and regards the right toes to command. Afebrile. Sputum culture has gram-negative lary from 03/11/2018. Receiving tube feedings. Antibiotics: Primaxin Vancomycin Lines: Peripheral IV catheters Past Medical History: Diabetes mellitus, hypertension, hypothyroidism, systemic lupus erythematosus, rheumatoid arthritis, anemia, recent subarachnoid hemorrhage, C6 mass resection, hysterectomy, bladder sling, appendectomy, C4-C7 laminectomy, C4-T1 posterior fusion. Allergies/Adverse Reactions: Allergies codeine Allergy (Intermediate, Verified 01/24/18 17:12) nitroglycerin Adverse Reaction (Severe, Verified 01/25/18 09:14) Nausea/Vomiting Objective Vital Signs 03/13/18 15:09 03/13/18 16:00 03/13/18 20:00 Temperature 97.6 F 98.7 F Pulse Rate 98 H 95 H Respiratory Rate 21 17 18 Blood Pressure 92/53 L 99/58 L Pulse Oximetry 100 100 03/13/18 20:52 03/14/18 00:00 03/14/18 01:19 Temperature 97.5 F L Pulse Rate 88 Respiratory Rate 18 17 19 Blood Pressure 96/55 L Pulse Oximetry 100 03/14/18 04:00 03/14/18 04:02 03/14/18 07:21 Temperature 97.9 F Pulse Rate 108 H Respiratory Rate 18 16 16 Blood Pressure 107/65 Pulse Oximetry 100 100 03/14/18 08:27 03/14/18 11:39 Temperature Pulse Rate Respiratory Rate 18 17 Blood Pressure Pulse Oximetry 100 100 Intake & Output 03/13/18 03/14/18 03/14/18 18:59 06:59 18:59 Intake Total 350 / 350 2361 / 2361 1000 / 1000 Output Total 1600 / 1600 1550 / 1550 Balance -1250 / -1250 811 / 811 1000 / 1000 Weight 66.9 kg Intake: IV 350 / 350 2050 / 2050 1000 / 1000 D5W/Normal Saline Inj 1,000 ML 1000 / 1000 1000 / 1000 @ 84 mls/hr IV.CONT .[id number] [facility] Rx#:[id number] Primaxin Inj 500 MG In NS Inj 100 / 100 300 / 300 100 ML @ 200 mls/hr IV.SIG Q6H [facility] Rx#:[id number] Vancomycin Inj 1,000 MG In NS 250 / 250 500 / 500 Inj 250 ML @ 250 mls/hr IV.SIG Q12H [facility] Rx#:[id number] fentaNYL 10 mcg/mL Premix Drip 250 / 250 2,500 mcg In 250 ml @ 50 MCG/HR 5 mls/hr IV.SIG TITRATE PRN Rx #:[id number] Tube Feeding 0 / 0 111 / 111 Tube Irrigant 200 / 200 Output: Urine Amount (Catheter) 1600 / 1600 1550 / 1550 Indwelling Urethral Catheter 1600 / 1600 1550 / 1550 Other: Date of Last Bowel Movement 03/13/18 03/13/18 # Incontinent Bowel Movements 2 1 03/12/18 00:46 Blood - Peripheral Aerobic Blood Culture - Preliminary No growth in 2 days 03/12/18 00:46 Blood - Peripheral Anaerobic Blood Culture - Preliminary No growth in 2 days 03/12/18 00:40 Blood - Peripheral Aerobic Blood Culture - Preliminary No growth in 2 days 03/12/18 00:40 Blood - Peripheral Anaerobic Blood Culture - Preliminary No growth in 2 days 03/09/18 19:21 Blood - Peripheral Aerobic Blood Culture - Final No growth in 5 days 03/09/18 19:21 Blood - Peripheral Anaerobic Blood Culture - Final No growth in 5 days 03/09/18 19:28 Blood - Peripheral Aerobic Blood Culture - Final No growth in 5 days 03/09/18 19:28 Blood - Peripheral Anaerobic Blood Culture - Final No growth in 5 days 03/11/18 22:30 Sputum - Endotracheal Gram Stain - Final 03/11/18 22:30 Sputum - Endotracheal Sputum Culture - Preliminary gram negative rods 03/08/18 11:00 Blood - Peripheral Aerobic Blood Culture - Final No growth in 5 days 03/08/18 11:00 Blood - Peripheral Anaerobic Blood Culture - Final No growth in 5 days 03/08/18 11:09 Blood - Peripheral Aerobic Blood Culture - Final No growth in 5 days 03/08/18 11:09 Blood - Peripheral Anaerobic Blood Culture - Final No growth in 5 days 03/09/18 16:45 Sputum - Endotracheal Gram Stain - Final 03/09/18 16:45 Sputum - Endotracheal Sputum Culture - Final Heavy growth normal respiratory ramesh 03/06/18 05:12 Blood - Peripheral Aerobic Blood Culture - Final Staphylococcus coag negative 03/06/18 05:12 Blood - Peripheral Anaerobic Blood Culture - Final Staphylococcus epidermidis Lab - Hematology Results 03/13/18 03/14/18 05:20 03:40 WBC 3.1 L 2.7 L RBC 2.72 L 2.46 L Hgb 8.6 L 7.8 L Hct 25.3 L 22.5 L MCV 92.9 91.3 MCH 31.5 31.9 MCHC 33.9 34.9 RDW 17.1 16.5 Plt Count 94 L D 102 L MPV 10.6 9.9 Prelim Diff (Auto) Slide review pending Neut % (Auto) 75.1 H Lymph % (Auto) 17.7 [place] % (Auto) 6.7 Eos % (Auto) 0.2 Baso % (Auto) 0.3 Neut # (Auto) 2.4 Lymph # (Auto) 0.6 L [place] # (Auto) 0.2 Eos # (Auto) 0.0 Baso # (Auto) 0.0 WBC Differential Manual diff final Seg Neuts % (Manual) 47 Band Neuts % (Manual) 29 H Lymphocytes % (Manual) 20 Monocytes % (Manual) 3 Basophils % (Manual) 1 Abs Neuts (Manual) 2.4 Differential Comment . Platelet Estimate Low L Platelet Morphology Normal Lab - Chemistry Results 03/12/18 03/12/18 03/12/18 18:34 18:42 18:42 Sodium 142 Potassium 4.0 D Chloride 113 H Carbon Dioxide 20.4 L Anion Gap 9 BUN 10 Creatinine 0.20 L Estimated GFR Greater than 89 POC Glucose 107 Random Glucose 98 Lactic Acid Calcium 6.8 L* Prot Corrected Calcium 8.4 L Phosphorus Magnesium Total Bilirubin AST ALT Alkaline Phosphatase Troponin I 0.09 H Total Protein 4.2 L Albumin Cortisol 03/12/18 03/12/18 03/12/18 18:50 18:50 19:28 Sodium Potassium Chloride Carbon Dioxide Anion Gap BUN Creatinine Estimated GFR POC Glucose 85 Random Glucose Lactic Acid 1.6 Calcium Prot Corrected Calcium Phosphorus Magnesium Total Bilirubin AST ALT Alkaline Phosphatase Troponin I Total Protein Albumin Cortisol 5.5 03/13/18 03/13/18 03/13/18 03:57 05:00 05:20 Sodium 143 Potassium 4.1 Chloride 113 H Carbon Dioxide 20.9 L Anion Gap 9 BUN 8 Creatinine Less than 0.15 L Estimated GFR Greater than 89 POC Glucose 102 103 Random Glucose 129 H Lactic Acid Calcium 7.7 L D Prot Corrected Calcium Phosphorus 2.4 L Magnesium 1.4 L Total Bilirubin 0.4 AST 42 H ALT 24 Alkaline Phosphatase 285 H Troponin I 0.08 H Total Protein 4.3 L Albumin 1.1 L Cortisol Imaging: ITS Impressions Head CT 03/12/18 06:59 CONCLUSION: 1. No acute intracranial abnormality. 2. Minimal fluid in the mastoid air cells. Chest X-Ray 03/14/18 06:00 CONCLUSION: 1. No significant interval change. 2. Stable tubes and lines. 3. Stable small bilateral pleural effusions and associated lower lung zone airspace disease. Physical Exam: GENERAL: No acute distress. Awake. Appears lethargic. HEENT: Pupils reactive to light. Unable to fully assess since he cannot cooperate. NECK: Supple without adenopathy. No swelling. LUNGS: Decreased breath sounds and rhonchi at the bases. HEART: Regular S1 and S2. No murmurs rubs or gallops. ABDOMEN: Soft, nontender. EXTREMITIES: No clubbing cyanosis. Left hand edema. SKIN: No rash. NEUROLOGIC: Unable to fully assess. PSYCH: Unable to fully assess. Assessment and Plan (1) ESBL (extended spectrum beta-lactamase) producing bacteria infection Status: Acute Code(s): A49.9 - Bacterial infection, unspecified; Z16.12 - Extended spectrum beta lactamase (ESBL) resistance (2) Hospital acquired PNA Status: Acute Code(s): J18.9 - Pneumonia, unspecified organism (3) Acute respiratory failure Status: Acute Code(s): J96.00 - Acute respiratory failure, unspecified whether with hypoxia or hypercapnia - Plan RECOMMENDATIONS: Continue Primaxin Add Levaquin for stenotrophomonas. Continue vancomycin Monitor progress Monitor temps Weaning per CCM Discussed with at bedside
--- NOTE | 2018-03-14 14:10 | P.PNONC ---
Subjective Interval history: Patient remains intubated. In no acute distress. Her family is at the bedside. Objective Vital Signs/Intake & Output: Vital Signs 03/13/18 15:09 03/13/18 16:00 03/13/18 20:00 Temperature 97.6 F 98.7 F Pulse Rate 98 H 95 H Respiratory Rate 21 17 18 Blood Pressure 92/53 L 99/58 L Pulse Oximetry 100 100 03/13/18 20:52 03/14/18 00:00 03/14/18 01:19 Temperature 97.5 F L Pulse Rate 88 Respiratory Rate 18 17 19 Blood Pressure 96/55 L Pulse Oximetry 100 03/14/18 04:00 03/14/18 04:02 03/14/18 07:21 Temperature 97.9 F Pulse Rate 108 H Respiratory Rate 18 16 16 Blood Pressure 107/65 Pulse Oximetry 100 100 03/14/18 08:27 03/14/18 11:39 Temperature Pulse Rate Respiratory Rate 18 17 Blood Pressure Pulse Oximetry 100 100 Intake & Output 03/13/18 03/14/18 03/14/18 18:59 06:59 18:59 Intake Total 350 / 350 2361 / 2361 1000 / 1000 Output Total 1600 / 1600 1550 / 1550 Balance -1250 / -1250 811 / 811 1000 / 1000 Weight 66.9 kg Intake: IV 350 / 350 2050 / 2050 1000 / 1000 D5W/Normal Saline Inj 1,000 ML 1000 / 1000 1000 / 1000 @ 84 mls/hr IV.CONT .[id number] KARINA Rx#:[id number] Primaxin Inj 500 MG In NS Inj 100 / 100 300 / 300 100 ML @ 200 mls/hr IV.SIG Q6H KARINA Rx#:[id number] Vancomycin Inj 1,000 MG In NS 250 / 250 500 / 500 Inj 250 ML @ 250 mls/hr IV.SIG Q12H KARINA Rx#:[id number] fentaNYL 10 mcg/mL Premix Drip 250 / 250 2,500 mcg In 250 ml @ 50 MCG/HR 5 mls/hr IV.SIG TITRATE PRN Rx #:[id number] Tube Feeding 0 / 0 111 / 111 Tube Irrigant 200 / 200 Output: Urine Amount (Catheter) 1600 / 1600 1550 / 1550 Indwelling Urethral Catheter 1600 / 1600 1550 / 1550 Other: Date of Last Bowel Movement 03/13/18 03/13/18 # Incontinent Bowel Movements 2 1 Result Diagrams: 03/14/18 03:40 03/14/18 03:40 Laboratory Results: Laboratory Results - last 24 hr 03/13/18 03/13/18 03/14/18 15:37 18:20 00:10 WBC RBC Hgb Hct MCV MCH MCHC RDW Plt Count MPV Sodium Potassium 4.0 Chloride Carbon Dioxide Anion Gap BUN Creatinine Estimated GFR POC Glucose 92 90 Random Glucose Calcium Prot Corrected Calcium Phosphorus 2.8 Magnesium 1.4 L Total Protein 03/14/18 03/14/18 03/14/18 03:40 03:40 03:40 WBC 2.7 L RBC 2.46 L Hgb 7.8 L Hct 22.5 L MCV 91.3 MCH 31.9 MCHC 34.9 RDW 16.5 Plt Count 102 L MPV 9.9 Sodium 141 Potassium 3.7 Chloride 110 H Carbon Dioxide 23.8 Anion Gap 7 BUN 6 L Creatinine Less than 0.15 L Estimated GFR Greater than 89 POC Glucose Random Glucose 75 Calcium 7.2 L* Prot Corrected Calcium 8.9 Phosphorus 2.9 Magnesium 1.3 L Total Protein 4.2 L 03/14/18 03/14/18 03/14/18 05:19 10:30 11:24 WBC RBC Hgb Hct MCV MCH MCHC RDW Plt Count MPV Sodium Potassium Chloride Carbon Dioxide Anion Gap BUN Creatinine Estimated GFR POC Glucose 91 100 Random Glucose Calcium Prot Corrected Calcium Phosphorus Magnesium 1.5 Total Protein Culture Results: Microbiology 03/11/18 22:30 Gram Stain - Final Sputum - Endotracheal Sputum Culture - Final Stenotrophomonas maltophilia 03/12/18 00:46 Aerobic Blood Culture - Preliminary Blood - Peripheral No growth in 2 days Anaerobic Blood Culture - Preliminary No growth in 2 days 03/12/18 00:40 Aerobic Blood Culture - Preliminary Blood - Peripheral No growth in 2 days Anaerobic Blood Culture - Preliminary No growth in 2 days 03/09/18 19:21 Aerobic Blood Culture - Final Blood - Peripheral No growth in 5 days Anaerobic Blood Culture - Final No growth in 5 days 03/09/18 19:28 Aerobic Blood Culture - Final Blood - Peripheral No growth in 5 days Anaerobic Blood Culture - Final No growth in 5 days 03/08/18 11:00 Aerobic Blood Culture - Final Blood - Peripheral No growth in 5 days Anaerobic Blood Culture - Final No growth in 5 days 03/08/18 11:09 Aerobic Blood Culture - Final Blood - Peripheral No growth in 5 days Anaerobic Blood Culture - Final No growth in 5 days 03/09/18 16:45 Gram Stain - Final Sputum - Endotracheal Sputum Culture - Final Heavy growth normal respiratory ramesh Imaging Studies: Impressions Chest X-Ray 03/14/18 06:00 CONCLUSION: 1. No significant interval change. 2. Stable tubes and lines. 3. Stable small bilateral pleural effusions and associated lower lung zone airspace disease. Medications: Active Medications Generic Name Dose Route Start Last Admin Trade Name Freq PRN Reason Stop Dose Admin Acetaminophen 650 mg 03/05/18 00:01 03/09/18 13:35 Tylenol PO 650 mg Q6H PRN Administration PAIN 1-5 AND/OR FEVER > 101F Albuterol 1 ampul 03/05/18 00:00 03/13/18 03:30 Duoneb Neb (Prn) NEB 1 ampul Q2HR NEB PRN Administration WHEEZING Chlorhexidine Gluconate 15 ml 03/12/18 08:00 03/14/18 08:03 Peridex 0.12% Oral Kit OROPHARYNG 15 ml BID@0800,1999 KARINA Administration Collagenase 1 applicatio 03/09/18 15:00 03/13/18 14:51 Santyl Oint TOPICAL 1 applicatio Q24H KARINA Administration Cyclobenzaprine HCl 5 mg 03/05/18 09:00 03/14/18 13:36 Flexeril PO 5 mg TID KARINA Administration Famotidine 20 mg 03/05/18 09:00 03/14/18 08:04 Pepcid PO 20 mg BID KARINA Administration Gabapentin 600 mg 03/05/18 09:00 03/14/18 13:36 Neurontin PO 600 mg TID KARINA Administration Acetaminophen 1,000 mg in 100 mls @ 400 mls/hr 03/05/18 00:01 03/07/18 21:48 Ofirmev Inj IV.SIG Infused Q6H PRN Infusion FEVER>101degF Imipenem/Cilastatin Sodium 500 100 mls @ 200 mls/hr 03/05/18 04:00 03/14/18 09:32 mg/ Sodium Chloride IV.SIG 200 mls/hr Q6H KARINA Administration Potassium Chloride 20 meq in 100 mls @ 50 mls/hr 03/05/18 00:01 03/12/18 20: 09 Kcl 20 Meq Premix Inj IV.SIG 25 mls/hr Q2H PRN Administration For Potassium 3.3 - 3.5 mEq/L Potassium Chloride 20 meq in 100 mls @ 50 mls/hr 03/07/18 06:54 03/11/18 06: 54 Kcl 20 Meq Premix Inj IV.SIG 25 mls/hr Q2H PRN Administration For Potassium 3.3 - 3.5 mEq/L Potassium Phosphate 30 mmol/ 260 mls @ 42 mls/hr 03/07/18 06:54 03/07/18 17: 07 Sodium Chloride IV.SIG 42 mls/hr UNSCH PRN Infusion SEE LABEL COMMENTS Potassium Phosphate 30 mmol/ 260 mls @ 42 mls/hr 03/05/18 00:01 03/06/18 08: 21 Sodium Chloride IV.SIG 0 mls/hr UNSCH PRN Infusion SEE LABEL COMMENTS Potassium Chloride 20 meq in 100 mls @ 50 mls/hr 03/05/18 00:01 03/12/18 17: 51 Kcl 20 Meq Premix Inj IV.SIG 50 mls/hr Q2H PRN Administration For Potassium 2.8 - 3.2 mEq/L Vancomycin HCl 1,000 mg/ 250 mls @ 250 mls/hr 03/11/18 18:00 03/14/18 06:30 Sodium Chloride IV.SIG Infused Q12H KARINA Infusion Dextrose/Sodium Chloride 1,000 mls @ 84 mls/hr 03/12/18 17:45 03/14/18 10:26 D5w/Normal Saline Inj IV.CONT 84 mls/hr .[id number] KARINA Administration Phenylephrine HCl 40 mg/ 500 mls @ 30 mls/hr 03/12/18 20:19 03/13/18 19:00 Dextrose IV.CONT 0 mcg/min TITRATE PRN 0 mls/hr Per Protocol Titration Protocol 40 MCG/MIN Insulin Human Regular 0 units 03/13/18 18:00 03/14/18 06:00 Novolin R Supplemental Scale SQ Not Given Q6HR [facility] Protocol Levothyroxine Sodium 50 mcg 03/05/18 06:00 03/14/18 05:30 Synthroid PO 50 mcg DAILY@0600 KARINA Administration Magnesium Oxide 800 mg 03/05/18 00:01 03/14/18 05:37 Mag-Ox PO 800 mg UNSCH PRN Administration For Magnesium 1.2 - 1.6 mg/dL Ondansetron HCl 4 mg 03/05/18 00:01 03/13/18 05:49 Zofran Odt PO 4 mg Q6H PRN Administration NAUSEA OR VOMITING Oxybutynin Chloride 5 mg 03/05/18 06:00 03/14/18 05:31 Ditropan PO 5 mg Q8HR KARINA Administration Potassium Phosphate 2,000 mg 03/05/18 00:01 03/13/18 10:43 K-Phos Original PO 2,000 mg Q4H PRN Administration For Phosphorus < 2/5 mg/dL Pravastatin Sodium 20 mg 03/05/18 09:00 03/14/18 08:04 Pravachol PO 20 mg DAILY KARINA Administration Sodium Chloride 0 ml 03/05/18 09:00 03/14/18 08:04 Ns Flush IV.FLUSH 10 ml DAILY KARINA Administration Protocol Tramadol HCl 50 mg 03/05/18 00:00 03/10/18 03:17 Ultram PO 50 mg Q8H PRN Administration PAIN 6-10 Objective Remarks: GENERAL: Older female patient, currently ventilated. Currently with her eyes closed, she did open them during the exam. SKIN: Pale, warm and dry. HEAD: Normocephalic. EYES: No scleral icterus. No injection or drainage. NECK: Supple, trachea midline. CARDIOVASCULAR: Distant heart sounds. RESPIRATORY: Mechanically ventilated. 35% FiO2. Anterior breath sounds with scattered rhonchi GASTROINTESTINAL: Mildly protuberant abdomen. Soft palpation. EXTREMITIES: Anasarca. MUSCULOSKELETAL: Adequate muscle tone. NEUROLOGICAL: Not following commands. Patient nonverbal due to ET tube. Assessment/Plan - Plan 1. Acute thrombocytopenia: secondary to sepsis, critical illness, antibiotics. Imipenem/cilastatin has a 1-10% risk of adverse reaction of thrombocytopenia. Defer to infectious disease for antibiotic choice. --Currently on Levaquin and vancomycin. --Platelets continue to trend, currently at 102K. 2. Anemia: inflammatory anemia. --Awaiting results of a occult stool study. --Will obtain a CBC in the a.m. to reevaluate anemia. Will transfuse as needed. 3. Ecoli sepsis: Management per infectious disease. 4. Continue supportive care. - Attending Statement The exam, history, and the medical decision-making described in the above note were completed with the assistance of the mid-level provider. I reviewed and agree with the findings presented. I attest that I had a [id number] encounter with the patient on the same day, and personally performed and documented my assessment and findings in the medical record. 62 yoF with sepsis. ID team following. Component of cytopenias due to sepsis, antibiotic therapy
[2018-03-14] MEDS: Collagenase Oint 30 GM Tube TOPICAL SCH (17:10)
[2018-03-15] MEDS: Oral Hygiene Kit OROPHARYNG SCH ×4 (04:00→17:21)
[2018-03-15 04:23] LABS: Baso % (Auto) 0.3 % (0.0-2.0); Eos % (Auto) 0.2 % (0.0-4.0); Hematocrit 22.2 % (35.0-46.0); Hemoglobin 7.5 gm/dL (11.6-15.3); Lymph # (Auto) 0.7 th/mm3 (1.0-4.8); Mean Corpuscular Hemoglobin 31.3 pg (27.0-34.0); Mean Corpuscular Volume 92.3 fL (80.0-100.0); Mono # (Auto) 0.2 th/mm3 (0.0-0.9); Mono % (Auto) 6.4 % (0.0-8.0); Neut # (Auto) 2.4 th/mm3 (1.8-7.7); Neut % (Auto) 73.1 % (16.0-70.0); Platelet Count 134 th/mm3 (150-450); Red Cell Distribution Width 16.2 % (11.6-17.2); White Blood Count 3.3 th/mm3 (4.0-11.0)
[2018-03-15 04:39] LABS: Alanine Aminotransferase 17 U/L (10-53); Alkaline Phosphatase 238 U/L (45-117); Anion Gap 7 meq/L (5-15); Aspartate Aminotransferase 27 U/L (15-37); Blood Urea Nitrogen 4 mg/dL (7-18); Calcium 7.3 mg/dL (8.5-10.1); Carbon Dioxide 25.7 meq/L (21.0-32.0); Chloride 108 meq/L (98-107); Glomerular Filtration Rate Greater Than 89 mL/min (>89); Glucose,Random 103 mg/dL (74-106); Potassium 3.2 meq/L (3.5-5.1); Sodium 141 meq/L (136-145); Total Protein 4.2 g/dL (6.4-8.2)
--- NOTE | 2018-03-15 05:29 | XR ---
EXAM DATE: 03/15/2018 5:04 AM EDT AGE/SEX: 62 years / Female INDICATIONS: Shortness of breath. CLINICAL DATA: This is the patient's subsequent encounter. Patient reports that signs and symptoms h ave been present for 2 weeks and indicates a pain score of Nonresponsive. MEDICAL/SURGICAL HISTORY: . Diabetes. Hypertension. Rheumatoid arthritis. Subarachnoid hemorrha ge, Lupus . . Fusion, cervical. COMPARISON: C, CHEST 1V SINGLE AP, 03/14/2018. . FINDINGS: Stable ETT, NGT and right subclavian central line. Stable bilateral [id number]-zh-tyvqhmda pleural effusio ns with associated lower lobe airspace disease. Cardiomediastinal contours are stable. Remainder of e xam is unchanged. CONCLUSION: 1. No significant interval change. 2. Stable tubes and lines. 3. Stable bilateral flore-ok-fpolkeei pleural effusions with associated lower lobe airspace disease. Electronically signed by: Harrison Edmonds MD 03/15/2018 5:28 AM EDT
[2018-03-15] MEDS ORDERED: Pharmacy Ordered Lab Info OTHER ONE (05:45)
[2018-03-15] MEDS: Insulin NovoLIN Regular Correctional Sugar Inj SQ SCH ×3 (06:00→13:57)
[2018-03-15] MEDS: Levothyroxine 50 MCG Tablet PO SCH (06:11)
[2018-03-15] MEDS: Potassium Chlor 20 mEq Premix 20 MEQ/100 ML PIGGYBACK IV.SIG PRN ×2 (06:46→09:54)
[2018-03-15] MEDS: Vancomycin Inj 1,000 MG in Sodium Chlor 0.9% Inj 250 ML IV.SIG SCH ×2 (06:57→17:32)
[2018-03-15] MEDS: Gabapentin 300 MG Capsule PO SCH ×3 (10:01→17:19)
[2018-03-15] MEDS: Famotidine 20 MG Tablet PO SCH ×2 (10:02→20:33)
[2018-03-15] MEDS: Chlorhexidine 0.12% Oral Kit 15 ML UDC OROPHARYNG SCH ×2 (10:04→20:00)
--- NOTE | 2018-03-15 10:21 | P.PNCC ---
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 she was sent to [facility] for procedural management of these. She was then transferred to [facility] [facility] on 02/28. Please see the dictated hospitalist consult note on 02/28 on admission to [facility] for a detailed record of the hospital course while at [facility]. Today, she was found to be very tachycardic in the 160s and hypotensive with sbp in the 70s. She was emergently transferred to the ICU after rapid response was called for evaluation and management of her hypotension. Of note, she did not have iv access. I met her on arrival to the ICU. I placed 2 18g piv. 12-lead EKG confirms sinus tachycardia. I due to the fast rate, I gave 6mg adenosine to slow it down diagnostically, and it slowed down temporarily to a HR in the 70s, confirming sinus rhythm. I performed bedside critical care echocardiography which demonstrates grossly preserve biventricular function. in particular, RV is decompressed and well-functioning. IVC is completely collapsable. no pericardial effusion. I gave her 3L NS bolus ivf which improved her SBP to 110s and decreased her HR to 110s. She is afebrile. stat CBC shows anemia (history of recent femoral artery pseudoaneurysm), CMP demonstrates elevated AST and Alk phos, elevated lactate at 3.7. Cr elevated above baseline. Patient denies any complaints to me. she is mostly cook islander speaking, but communicates in basic Syriac. specifically denies chest pain, shortness of breath, fever/chills, nausea, vomiting, abdominal pain, constipation, diarrhea. I discussed with her family, she has been eating and drinking well even up to today. ROS otherwise negative. 03/02 Patient is awake lying in bed in TRAV. On room air oxygen. T:103.2 this morning She was hypotensive overnight initially placed on Neosyn now off pressor with BP 147/67 with MAP 96. 03/03 No events overnight. Seems more awake and alert this morning. T: 100.2 at midnight. BP and HR better ( 119/58 with MAP 83mmHg). On no pressors. BC from 03/01: E.coli ESBL 6/30: clinically improving. slightly tachycardic. on appropriate therapy for her ESBL e. coli. denies complaints. hemodynamically stable. on room air. 03/05: Patient developed worsening respiratory distress yesterday and required endotracheal intubation and was placed on mechanical ventilation. Hypotension overnight for which patient was started on phenylephrine. Developed A. fib with RVR and was started on amiodarone gtt. 03/06 Patient remains sedated and intubated. Tmax 101.6, On Amio drip. 03/07 Patient remains intubated off sedation. s/p transfusion 2u PRBC yesterday. Tolerating tube feeds. Afebrile. Off Amio drip. 03/08 Patient remains intubated. T:100.9 last night. 03/09 No events overnight. Tolerated CPAP for approx 4 hrs yesterday. Off sedation. Afebrile. 03/10 No events overnight T:100.1 at 4am, Awake, patient was on CPAP for short time yesterday and placed back on PRVC mode for low TV and tachycardia. 03/11 No events overnight. Tolerated CPAP x 4hrs yesterday. T:100.6 yesterday. On no sedation. 03/12 Patient was extubated yesterday reintubated last night for resp distress and AMS. Afebrile. On Diprivan infusion for sedation. 03/13: Remains intubated critical, remains encephalopathy unresponsive off sedation. Afebrile EEG showed significant encephalopathy no seizures. Right subclavian central line placed, remains on Luis-Synephrine to keep map above 65 03/14: Remains encephalopathy again unresponsive. Eyes are open but no tracking did not follow commands. Remains leukopenic. Weaned off Luis-Synephrine. Not tolerating CPAP due to low tidal volume 03/15: Continues to fail CPAP due to low tidal volume. IV Levaquin added yesterday by ID for stenotrophomonas in the sputum. Remains encephalopathic did not follow commands but eyes are spontaneously open. I have requested neurology consult today Objective Vital Signs / I&O: Vital Signs 03/14/18 11:39 03/14/18 13:42 03/14/18 13:45 Temperature Pulse Rate 113 H 114 H Respiratory Rate 17 17 16 Blood Pressure 104/73 Pulse Oximetry 100 100 100 03/14/18 14:00 03/14/18 14:15 03/14/18 14:31 Temperature Pulse Rate 112 H 114 H 115 H Respiratory Rate 17 17 18 Blood Pressure 100/63 98/62 L 116/64 Pulse Oximetry 100 100 100 03/14/18 14:45 03/14/18 14:59 03/14/18 15:00 Temperature Pulse Rate 118 H 116 H Respiratory Rate 17 16 21 Blood Pressure 112/83 Pulse Oximetry 100 100 100 03/14/18 15:01 03/14/18 15:03 03/14/18 15:15 Temperature Pulse Rate 146 H 122 H 118 H Respiratory Rate 22 18 17 Blood Pressure 149/119 H 138/66 134/65 Pulse Oximetry 100 100 100 03/14/18 15:30 03/14/18 15:45 03/14/18 16:00 Temperature Pulse Rate 116 H 115 H 117 H Respiratory Rate 16 16 19 Blood Pressure 136/72 115/60 138/59 L Pulse Oximetry 100 100 100 03/14/18 16:15 03/14/18 16:30 03/14/18 16:45 Temperature Pulse Rate 117 H 116 H 119 H Respiratory Rate 17 16 17 Blood Pressure 136/61 95/63 L 108/56 L Pulse Oximetry 100 100 100 03/14/18 17:00 03/14/18 17:15 03/14/18 17:30 Temperature Pulse Rate 115 H 113 H 125 H Respiratory Rate 17 18 23 Blood Pressure 113/58 L 115/66 142/88 H Pulse Oximetry 100 100 100 03/14/18 17:46 03/14/18 18:00 03/14/18 18:15 Temperature Pulse Rate 124 H 122 H 122 H Respiratory Rate 17 16 13 Blood Pressure 126/62 125/59 L 122/67 Pulse Oximetry 100 100 100 03/14/18 18:30 03/14/18 18:46 03/14/18 19:00 Temperature Pulse Rate 122 H 121 H 124 H Respiratory Rate 16 15 14 Blood Pressure 128/61 122/63 117/79 Pulse Oximetry 100 100 100 03/14/18 19:15 03/14/18 20:00 03/14/18 20:30 Temperature 99.3 F Pulse Rate 122 H 125 H Respiratory Rate 13 16 16 Blood Pressure 110/70 115/66 Pulse Oximetry 100 100 100 03/15/18 00:00 03/15/18 00:05 03/15/18 04:00 Temperature 98.7 F 98.2 F Pulse Rate 106 H 114 H Respiratory Rate 16 17 18 Blood Pressure 129/76 139/80 Pulse Oximetry 100 100 100 03/15/18 04:01 03/15/18 07:46 Temperature Pulse Rate Respiratory Rate 16 18 Blood Pressure Pulse Oximetry 100 100 Intake & Output 03/14/18 03/15/18 03/15/18 18:59 06:59 18:59 Intake Total 1415 / 1415 2072 / 2072 350 / 350 Output Total 1500 / 1500 2350 / 2350 Balance -85 / -85 -278 / -278 350 / 350 Weight 70.3 kg Intake: IV 1350 / 1350 1500 / 1500 350 / 350 D5W/Normal Saline Inj 1,000 ML 1000 / 1000 1000 / 1000 @ 84 mls/hr IV.CONT .[id number] KARINA Rx#:[id number] Primaxin Inj 500 MG In NS Inj 100 / 100 300 / 300 100 ML @ 200 mls/hr IV.SIG Q6H KARINA Rx#:[id number] Levaquin 750 mg Premix Inj 150 100 / 100 ML @ 100 mls/hr IV.SIG Q24H KARINA Rx#:[id number] KCl 20 mEq Premix Inj 20 meq In 100 / 100 100 / 100 100 ml @ 50 mls/hr IV.SIG Q2H PRN Rx#:[id number] Vancomycin Inj 1,000 MG In NS 250 / 250 250 / 250 Inj 250 ML @ 250 mls/hr IV.SIG Q12H KARINA Rx#:[id number] Tube Feeding 65 / 65 372 / 372 Tube Irrigant 200 / 200 Output: Urine 1500 / 1500 Urine Amount (Catheter) 2350 / 2350 Indwelling Urethral Catheter 2350 / 2350 Other: Date of Last Bowel Movement 03/14/18 03/15/18 # Incontinent Bowel Movements 1 1 Result Diagrams: 03/15/18 03:35 03/15/18 03:35 Objective Remarks: GENERAL: Patient is 62 yo intubated and off sedation SKIN: Warm and dry. HEAD: Normocephalic. EYES: No scleral icterus. No injection or drainage. NECK: Supple, trachea midline. No JVD or lymphadenopathy. CARDIOVASCULAR: Tachycardic without murmurs, gallops, or rubs. Intermittently HR in 150's RESPIRATORY: Breath sounds equal bilaterally. No accessory muscle use. Failing CPAP due to low tidal volumes GASTROINTESTINAL: Abdomen soft, non-tender, nondistended. MUSCULOSKELETAL: No cyanosis, or edema. Neuro: Intubated, opens eyes, do not follow commands but tracks. Intermittent movements of bilateral upper extremity, no purposeful movements noted. Involuntary squeezing with hands Assessment and Plan - Assessment and Plan Plan: A/P Assessment and Plan Plan by system Neuro: Severe metabolic encephalopathy Recent aneurysmal subarachnoid hemorrhage treated at [facility] in January 2018 Off all sedation. Encephalopathy most likely metabolic from severe sepsis Repeat CT brain showed no acute abnormalities. EEG significant encephalopathy MRI brain: previously noted subarachnoid hemorrhage overlying the occipital lobes has resolved. Tiny trace of residual hemorrhage in the posterior lateral ventricles. Stable chronic white matter changes. No new or acute intracranial process. Neurology consult requested Pulm: Acute hypoxemic respiratory failure HCAP Extubated and reintubated on 03/11, failing CPAP trials due to low tidal volumes. vent day 5 Continue vent support keep sats >92% Bronchodilators, ICU vent bundle. CTA chest: No PE, minimal consolidative changes left base SBT daily as amador, however mental status will not permit extubation, also failing CPAP due to low minute ventilation CV: A. fib/sinus tachycardia Septic shock Currently off all pressors Holding Lopressor 50mg Q12 Monitor HR and BP keep MAP>65mmHg. Start as needed IV Lopressor for intermittent tachycardia Pravachol 20mg daily - Elevated troponin, type II demand ischemia NSTEMI - Echo 03/06 EF 50-55% - Will not anticoagulate at this time given risk/benefit with recent head bleed Cortisol level: 41 Cards has followed : Urinary retention Monitor renal function, electrolytes replacement per protocol. Replace electrolytes as needed GI: Elevated AST, Alk phos Monitor LFT's, CT abd/pelvis without evidence of overt acute cholecystitis Tube feeds- Glucerna 1.5 with goal rate 45ml/hr ID: Urinary tract infection ESBL E. coli bacteremia Pneumonia with Stenotrophomonas s/p Septic shock ID is following Continue with abx per ID ( Imipenem, Vanco ) , Levaquin added 03/14/2018 for Stenotrophomonas Follow up blood cultures negative 03/11 sputum Stenotrophomonas 03/07: Sputum cx: NG 03/08, 03/09 BC: NGTD 03/06 BC Coag negative staph 03/05 BC: E.coli bacteremia 03/01 BC: E.coli ESBL 03/01 Urine cx: GNR Heme: Anemia Thrombocytopenia likely 2nd sepsis -Monitor CBC, s/p 2u PRBC 03/06 Heme is following- Dr. Miller Hep PLT ab negative Sacral decubitus - present on admission - does not appear grossly infected - likely not the source of infection - management per wound care nurse Endo: SSI if needed for glycemic control On Synthroid 50mcg daily. TSH: 0.47 GI prophylaxis- On Pepcid 20mg BID DVT prophylaxis- SCD, hold Heparin Sq due to recent [employer]PECTOR AIDE bleed in January ( MRI brain 01/29) and thrombocytopenia Lines: peripheral IV's CCT 35. Patient is more encephalopathic and critical remains septic, sputum culture with Stenotrophomonas. If no improvement in next 24-48 hours will get palliative care consult
[2018-03-15] MEDS: Dextrose 5%/NaCl 0.9% Inj 1,000 ML IV.CONT SCH ×2 (10:24→22:20)
--- NOTE | 2018-03-15 13:22 | P.PNID ---
Subjective Remarks: Patient is on the ventilator. Resting comfortably. at bedside. Afebrile. Sputum culture has Stenotrophomonas from 03/11/2018. HR increased. Currently on CPAP. Antibiotics: Primaxin Vancomycin Levaquin. Lines: Peripheral IV catheters Past Medical History: Diabetes mellitus, hypertension, hypothyroidism, systemic lupus erythematosus, rheumatoid arthritis, anemia, recent subarachnoid hemorrhage, C6 mass resection, hysterectomy, bladder sling, appendectomy, C4-C7 laminectomy, C4-T1 posterior fusion. Allergies/Adverse Reactions: Allergies codeine Allergy (Intermediate, Verified 01/24/18 17:12) nitroglycerin Adverse Reaction (Severe, Verified 01/25/18 09:14) Nausea/Vomiting Objective Vital Signs 03/14/18 13:42 03/14/18 13:45 03/14/18 14:00 Temperature Pulse Rate 113 H 114 H 112 H Respiratory Rate 17 16 17 Blood Pressure 104/73 100/63 Pulse Oximetry 100 100 100 03/14/18 14:15 03/14/18 14:31 03/14/18 14:45 Temperature Pulse Rate 114 H 115 H 118 H Respiratory Rate 17 18 17 Blood Pressure 98/62 L 116/64 112/83 Pulse Oximetry 100 100 100 03/14/18 14:59 03/14/18 15:00 03/14/18 15:01 Temperature Pulse Rate 116 H 146 H Respiratory Rate 16 21 22 Blood Pressure 149/119 H Pulse Oximetry 100 100 100 03/14/18 15:03 03/14/18 15:15 03/14/18 15:30 Temperature Pulse Rate 122 H 118 H 116 H Respiratory Rate 18 17 16 Blood Pressure 138/66 134/65 136/72 Pulse Oximetry 100 100 100 03/14/18 15:45 03/14/18 16:00 03/14/18 16:15 Temperature Pulse Rate 115 H 117 H 117 H Respiratory Rate 16 19 17 Blood Pressure 115/60 138/59 L 136/61 Pulse Oximetry 100 100 100 03/14/18 16:30 03/14/18 16:45 03/14/18 17:00 Temperature Pulse Rate 116 H 119 H 115 H Respiratory Rate 16 17 17 Blood Pressure 95/63 L 108/56 L 113/58 L Pulse Oximetry 100 100 100 03/14/18 17:15 03/14/18 17:30 03/14/18 17:46 Temperature Pulse Rate 113 H 125 H 124 H Respiratory Rate 18 23 17 Blood Pressure 115/66 142/88 H 126/62 Pulse Oximetry 100 100 100 03/14/18 18:00 03/14/18 18:15 03/14/18 18:30 Temperature Pulse Rate 122 H 122 H 122 H Respiratory Rate 16 13 16 Blood Pressure 125/59 L 122/67 128/61 Pulse Oximetry 100 100 100 03/14/18 18:46 03/14/18 19:00 03/14/18 19:15 Temperature Pulse Rate 121 H 124 H 122 H Respiratory Rate 15 14 13 Blood Pressure 122/63 117/79 110/70 Pulse Oximetry 100 100 100 03/14/18 20:00 03/14/18 20:30 03/15/18 00:00 Temperature 99.3 F 98.7 F Pulse Rate 125 H 106 H Respiratory Rate 16 16 16 Blood Pressure 115/66 129/76 Pulse Oximetry 100 100 100 03/15/18 00:05 03/15/18 04:00 03/15/18 04:01 Temperature 98.2 F Pulse Rate 114 H Respiratory Rate 17 18 16 Blood Pressure 139/80 Pulse Oximetry 100 100 100 03/15/18 07:46 03/15/18 11:26 Temperature Pulse Rate Respiratory Rate 18 18 Blood Pressure Pulse Oximetry 100 100 Intake & Output 03/14/18 03/15/18 03/15/18 18:59 06:59 18:59 Intake Total 1415 / 1415 2072 / 2072 1350 / 1350 Output Total 1500 / 1500 2350 / 2350 Balance -85 / -85 -278 / -278 1350 / 1350 Weight 70.3 kg Intake: IV 1350 / 1350 1500 / 1500 1350 / 1350 D5W/Normal Saline Inj 1,000 ML 1000 / 1000 1000 / 1000 1000 / 1000 @ 84 mls/hr IV.CONT .[id number] [facility]ARINA Rx#:[id number] Primaxin Inj 500 MG In NS Inj 100 / 100 300 / 300 100 ML @ 200 mls/hr IV.SIG Q6H KARINA Rx#:[id number] Levaquin 750 mg Premix Inj 150 100 / 100 ML @ 100 mls/hr IV.SIG Q24H KARINA Rx#:[id number] KCl 20 mEq Premix Inj 20 meq In 100 / 100 100 / 100 100 ml @ 50 mls/hr IV.SIG Q2H PRN Rx#:[id number] Vancomycin Inj 1,000 MG In NS 250 / 250 250 / 250 Inj 250 ML @ 250 mls/hr IV.SIG Q12H KARINA Rx#:[id number] Tube Feeding 65 / 65 372 / 372 Tube Irrigant 200 / 200 Output: Urine 1500 / 1500 Urine Amount (Catheter) 2350 / 2350 Indwelling Urethral Catheter 2349 / 2350 Other: Date of Last Bowel Movement 03/14/18 03/15/18 # Incontinent Bowel Movements 1 1 03/12/18 00:46 Blood - Peripheral Aerobic Blood Culture - Preliminary No growth in 3 days 03/12/18 00:46 Blood - Peripheral Anaerobic Blood Culture - Preliminary No growth in 3 days 03/12/18 00:40 Blood - Peripheral Aerobic Blood Culture - Preliminary No growth in 3 days 03/12/18 00:40 Blood - Peripheral Anaerobic Blood Culture - Preliminary No growth in 3 days 03/15/18 04:50 Sputum - Endotracheal Gram Stain - Pending 03/15/18 04:50 Sputum - Endotracheal Sputum Culture - Pending 03/11/18 22:30 Sputum - Endotracheal Gram Stain - Final 03/11/18 22:30 Sputum - Endotracheal Sputum Culture - Final Stenotrophomonas maltophilia 03/09/18 19:21 Blood - Peripheral Aerobic Blood Culture - Final No growth in 5 days 03/09/18 19:21 Blood - Peripheral Anaerobic Blood Culture - Final No growth in 5 days 03/09/18 19:28 Blood - Peripheral Aerobic Blood Culture - Final No growth in 5 days 03/09/18 19:28 Blood - Peripheral Anaerobic Blood Culture - Final No growth in 5 days 03/08/18 11:00 Blood - Peripheral Aerobic Blood Culture - Final No growth in 5 days 03/08/18 11:00 Blood - Peripheral Anaerobic Blood Culture - Final No growth in 5 days 03/08/18 11:09 Blood - Peripheral Aerobic Blood Culture - Final No growth in 5 days 03/08/18 11:09 Blood - Peripheral Anaerobic Blood Culture - Final No growth in 5 days Lab - Hematology Results 03/14/18 03/15/18 03:40 03:35 WBC 2.7 L 3.3 L RBC 2.46 L 2.40 L Hgb 7.8 L 7.5 L Hct 22.5 L 22.2 L MCV 91.3 92.3 MCH 31.9 31.3 MCHC 34.9 34.0 RDW 16.5 16.2 Plt Count 102 L 134 L D MPV 9.9 9.0 Neut % (Auto) 73.1 H Lymph % (Auto) 20.0 [place] % (Auto) 6.4 Eos % (Auto) 0.2 Baso % (Auto) 0.3 Neut # (Auto) 2.4 Lymph # (Auto) 0.7 L [place] # (Auto) 0.2 Eos # (Auto) 0.0 Baso # (Auto) 0.0 WBC Differential . Differential Comment Auto diff final Lab - Chemistry Results 03/13/18 03/13/18 03/14/18 15:37 18:20 00:10 Sodium Potassium 4.0 Chloride Carbon Dioxide Anion Gap BUN Creatinine Estimated GFR POC Glucose 92 90 Random Glucose Calcium Prot Corrected Calcium Phosphorus 2.8 Magnesium 1.4 L Total Bilirubin AST ALT Alkaline Phosphatase Total Protein Albumin 03/15/18 03/15/18 03/15/18 00:41 03:35 05:25 Sodium 141 Potassium 3.2 L Chloride 108 H Carbon Dioxide 25.7 Anion Gap 7 BUN 4 L Creatinine 0.18 L Estimated GFR Greater than 89 POC Glucose 94 137 H Random Glucose 103 Calcium 7.3 L* Prot Corrected Calcium 9.0 Phosphorus Magnesium Total Bilirubin 0.3 AST 27 ALT 17 Alkaline Phosphatase 238 H Total Protein 4.2 L Albumin 1.0 L 03/15/18 10:23 Sodium Potassium Chloride Carbon Dioxide Anion Gap BUN Creatinine Estimated GFR POC Glucose 136 H Random Glucose Calcium Prot Corrected Calcium Phosphorus Magnesium Total Bilirubin AST ALT Alkaline Phosphatase Total Protein Albumin Imaging: ITS Impressions Head CT 03/12/18 06:59 CONCLUSION: 1. No acute intracranial abnormality. 2. Minimal fluid in the mastoid air cells. Chest X-Ray 03/15/18 06:00 CONCLUSION: 1. No significant interval change. 2. Stable tubes and lines. 3. Stable bilateral [id number] pleural effusions with associated lower lobe airspace disease. Physical Exam: GENERAL: No acute distress. HEENT: Pupils reactive to light. NECK: Supple. No swelling. LUNGS: Good air movement slight basilar rhonchi. HEART: Regular S1 and S2. No murmurs rubs or gallops. ABDOMEN: Soft, nontender. EXTREMITIES: No clubbing cyanosis. Left hand edema. SKIN: No rash. NEUROLOGIC: Unable to fully assess. PSYCH: Unable to fully assess. Assessment and Plan (1) ESBL (extended spectrum beta-lactamase) producing bacteria infection Status: Acute Code(s): A49.9 - Bacterial infection, unspecified; Z16.12 - Extended spectrum beta lactamase (ESBL) resistance (2) Hospital acquired PNA Status: Acute Code(s): J18.9 - Pneumonia, unspecified organism (3) Acute respiratory failure Status: Acute Code(s): J96.00 - Acute respiratory failure, unspecified whether with hypoxia or hypercapnia - Plan RECOMMENDATIONS: Stop Primaxin Continue Levaquin for stenotrophomonas. Continue vancomycin Monitor progress Monitor temps Weaning per CCM Discussed with at bedside
[2018-03-15] MEDS: Metoprolol Inj 5 MG/5 ML Vial IV.PUSH PRN (20:33)
--- NOTE | 2018-03-15 20:54 | MB ---
cc: Paramjit Arellano MD, PhD DATE: 03/15/2018 REASON FOR CONSULTATION: Encephalopathy. HISTORY OF PRESENT ILLNESS: This is a 62-year-old woman who was transferred to [facility] from [facility] in [place] with a diagnosis of left vertebral artery aneurysm. She had a subarachnoid hemorrhage with intraventricular extension in January of this year, and a spinal intramedullary hemorrhage. She underwent surgery for this on 02/03, which is a C4-T1 posterior fusion, resection of C6 mass. She had sepsis and UTI. [facility] The patient became febrile with respiratory distress. CT brain negative for acute process. CT angio of the chest showed minimal consolidative changes at the left base, with air bronchograms present. Patient diagnosed with sepsis. She has been intubated, has not been following any commands. She had a CT of the brain, done last was 03/01. No acute process was identified. The ventricles are normal for age. There is no midline shift or mass. No hemorrhage was present. She also had an MRI of the brain performed 03/03, showing resolution of the previously noted subarachnoid hemorrhage overlying the occipital lobes. There is a small amount of residual hemorrhage in the posterolateral ventricle and stable chronic white matter changes. No acute changes identified. She had a CTA of the brain. No evidence of high-grade stenosis, no vascular malformation was identified. There is left-sided carotid basilar anastomotic vessel with probably a normal variant. She had a CT angiogram of the neck, showing some minimal enhancement/hemorrhage within the left posterior spinal canal of C4-C5. 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 CURRENT MEDICATIONS: Tylenol, albuterol nebulizer, Peridex, Flexeril, Pepcid, Neurontin, sliding scale Insulin, magnesium oxide, Zofran, Ditropan, potassium chloride p.r.n., pravastatin. PHYSICAL EXAMINATION: VITAL SIGNS: Blood pressure 149/82, pulse is 119, respirations are 17, temperature 99. degrees. GENERAL: Higher critical function, she does not follow commands. NEUROLOGIC: Cranial nerves: Pupils equal and reactive. Extraocular movements could not be assessed. Motor exam: She has increased tone in both upper extremities, with some tremulousness, some myoclonus. No focal deficit. No seizure activity. LABORATORY DATA: White count 3300, hemoglobin 7.5, hematocrit 22.2%, platelet count 134,000. The PT 11.4, INR 1.1, fibrinogen 492. Sodium is 141, potassium 3.2, chloride 108, CO2 25.7, BUN is 4, creatinine 0.18, glucose 137, calcium 7.3, protein corrected calcium 9.0, AST 27, ALT 17, alkaline phosphatase 238. B12 level greater than 2000. IMPRESSION AND PLAN: Probable metabolic encephalopathy from sepsis. However, I would like to obtain an EEG to be sure she is not having subclinical seizure activity. Paramjit Arellano MD, PhD TOYA/NANO , 08:20 PM , 08:52 PM
[2018-03-15 21:53] LABS: % Iron Saturation 13.5 % (20-50)
[2018-03-16] MEDS: Metoprolol Inj 5 MG/5 ML Vial IV.PUSH PRN ×3 (02:50→19:01)
[2018-03-16] MEDS: Oral Hygiene Kit OROPHARYNG SCH ×4 (04:00→18:46)
[2018-03-16] MEDS: Vancomycin Inj 1,000 MG in Sodium Chlor 0.9% Inj 250 ML IV.SIG SCH ×2 (05:07→18:44)
[2018-03-16] MEDS: Levothyroxine 50 MCG Tablet PO SCH (05:08)
[2018-03-16 05:13] LABS: Anion Gap 7 meq/L (5-15); Blood Urea Nitrogen 4 mg/dL (7-18); Calcium 7.1 mg/dL (8.5-10.1); Carbon Dioxide 25.8 meq/L (21.0-32.0); Chloride 109 meq/L (98-107); Glomerular Filtration Rate Greater Than 89 mL/min (>89); Glucose,Random 128 mg/dL (74-106); Potassium 3.5 meq/L (3.5-5.1); Sodium 142 meq/L (136-145)
[2018-03-16 05:30] LABS: Total Protein 4.3 g/dL (6.4-8.2)
[2018-03-16] MEDS: Potassium Chlor 20 mEq Premix 20 MEQ/100 ML PIGGYBACK IV.SIG PRN ×2 (05:48→11:23)
[2018-03-16] MEDS: Insulin NovoLIN Regular Correctional Sugar Inj SQ SCH ×4 (06:00→18:43)
[2018-03-16] MEDS: Dextrose 5%/NaCl 0.9% Inj 1,000 ML IV.CONT SCH (09:42)
[2018-03-16] MEDS: Gabapentin 300 MG Capsule PO SCH ×3 (10:53→18:46)
[2018-03-16] MEDS: Chlorhexidine 0.12% Oral Kit 15 ML UDC OROPHARYNG SCH ×2 (10:54→23:43)
[2018-03-16] MEDS: Acetaminophen 325 MG Tablet PO PRN (11:23)
--- NOTE | 2018-03-16 11:36 | P.PNCC ---
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 she was sent to [facility] for procedural management of these. She was then transferred to [facility] on 02/28. Please see the dictated hospitalist consult note on 02/28 on admission to [facility] for a detailed record of the hospital course while at [facility]. Today, she was found to be very tachycardic in the 160s and hypotensive with sbp in the 70s. She was emergently transferred to the ICU after rapid response was called for evaluation and management of her hypotension. Of note, she did not have iv access. I met her on arrival to the ICU. I placed 2 18g piv. 12-lead EKG confirms sinus tachycardia. I due to the fast rate, I gave 6mg adenosine to slow it down diagnostically, and it slowed down temporarily to a HR in the 70s, confirming sinus rhythm. I performed bedside critical care echocardiography which demonstrates grossly preserve biventricular function. in particular, RV is decompressed and well-functioning. IVC is completely collapsable. no pericardial effusion. I gave her 3L NS bolus ivf which improved her SBP to 110s and decreased her HR to 110s. She is afebrile. stat CBC shows anemia (history of recent femoral artery pseudoaneurysm), CMP demonstrates elevated AST and Alk phos, elevated lactate at 3.7. Cr elevated above baseline. Patient denies any complaints to me. she is mostly cymro speaking, but communicates in basic Bulgarian. specifically denies chest pain, shortness of breath, fever/chills, nausea, vomiting, abdominal pain, constipation, diarrhea. I discussed with her family, she has been eating and drinking well even up to today. ROS otherwise negative. 03/02 Patient is awake lying in bed in TRAV. On room air oxygen. T:103.2 this morning She was hypotensive overnight initially placed on Neosyn now off pressor with BP 147/67 with MAP 96. 03/03 No events overnight. Seems more awake and alert this morning. T: 100.2 at midnight. BP and HR better ( 119/58 with MAP 83mmHg). On no pressors. BC from 03/01: E.coli ESBL 6/30: clinically improving. slightly tachycardic. on appropriate therapy for her ESBL e. coli. denies complaints. hemodynamically stable. on room air. 03/05: Patient developed worsening respiratory distress yesterday and required endotracheal intubation and was placed on mechanical ventilation. Hypotension overnight for which patient was started on phenylephrine. Developed A. fib with RVR and was started on amiodarone gtt. 03/06 Patient remains sedated and intubated. Tmax 101.6, On Amio drip. 03/07 Patient remains intubated off sedation. s/p transfusion 2u PRBC yesterday. Tolerating tube feeds. Afebrile. Off Amio drip. 03/08 Patient remains intubated. T:100.9 last night. 03/09 No events overnight. Tolerated CPAP for approx 4 hrs yesterday. Off sedation. Afebrile. 03/10 No events overnight T:100.1 at 4am, Awake, patient was on CPAP for short time yesterday and placed back on PRVC mode for low TV and tachycardia. 03/11 No events overnight. Tolerated CPAP x 4hrs yesterday. T:100.6 yesterday. On no sedation. 03/12 Patient was extubated yesterday reintubated last night for resp distress and AMS. Afebrile. On Diprivan infusion for sedation. 03/13: Remains intubated critical, remains encephalopathy unresponsive off sedation. Afebrile EEG showed significant encephalopathy no seizures. Right subclavian central line placed, remains on Luis-Synephrine to keep map above 65 03/14: Remains encephalopathy again unresponsive. Eyes are open but no tracking did not follow commands. Remains leukopenic. Weaned off Luis-Synephrine. Not tolerating CPAP due to low tidal volume 03/15: Continues to fail CPAP due to low tidal volume. IV Levaquin added yesterday by ID for stenotrophomonas in the sputum. Remains encephalopathic did not follow commands but eyes are spontaneously open. I have requested neurology consult today Subjective 03/16: T-max 100.1. Currently 99. EEG has been performed. Does not follow commands. Tube feeds at 30 cc an hour. Positive BM. Objective Vital Signs / I&O: Vital Signs 03/15/18 11:45 03/15/18 12:00 03/15/18 12:15 Temperature Pulse Rate 122 H 119 H 121 H Respiratory Rate 17 17 21 Blood Pressure 118/72 123/71 130/80 Pulse Oximetry 100 100 100 03/15/18 12:30 03/15/18 12:45 03/15/18 13:00 Temperature Pulse Rate 118 H 122 H 126 H Respiratory Rate 17 18 18 Blood Pressure 131/75 118/72 125/70 Pulse Oximetry 100 100 100 03/15/18 13:15 03/15/18 13:30 03/15/18 13:45 Temperature Pulse Rate 123 H 123 H 123 H Respiratory Rate 18 17 19 Blood Pressure 126/69 130/74 133/69 Pulse Oximetry 100 100 100 03/15/18 14:00 03/15/18 14:15 03/15/18 14:23 Temperature 99.7 F H Pulse Rate 127 H 125 H Respiratory Rate 19 18 Blood Pressure 126/67 120/67 Pulse Oximetry 100 100 03/15/18 14:30 03/15/18 14:45 03/15/18 15:00 Temperature Pulse Rate 125 H 129 H 126 H Respiratory Rate 17 19 20 Blood Pressure 118/68 118/71 118/71 Pulse Oximetry 100 100 100 03/15/18 15:15 03/15/18 15:30 03/15/18 15:45 Temperature Pulse Rate 127 H 124 H 121 H Respiratory Rate 18 21 19 Blood Pressure 122/69 115/71 118/76 Pulse Oximetry 100 100 100 03/15/18 16:00 03/15/18 16:11 03/15/18 16:15 Temperature Pulse Rate 121 H 121 H Respiratory Rate 19 18 20 Blood Pressure 115/66 125/76 Pulse Oximetry 100 100 03/15/18 16:30 03/15/18 16:45 03/15/18 17:00 Temperature Pulse Rate 128 H 123 H 119 H Respiratory Rate 17 16 16 Blood Pressure 133/93 H 132/74 126/73 Pulse Oximetry 100 100 100 03/15/18 17:15 03/15/18 17:30 03/15/18 17:45 Temperature Pulse Rate 120 H 119 H 119 H Respiratory Rate 17 16 17 Blood Pressure 132/67 134/74 149/82 H Pulse Oximetry 100 100 100 03/15/18 20:00 03/15/18 20:44 03/16/18 00:00 Temperature 100.1 F H 98.6 F Pulse Rate 123 H 110 H Respiratory Rate 16 17 18 Blood Pressure 143/75 H 144/84 H Pulse Oximetry 100 100 100 03/16/18 01:31 03/16/18 04:00 03/16/18 04:04 Temperature 98.8 F Pulse Rate 102 H Respiratory Rate 16 16 16 Blood Pressure 127/76 Pulse Oximetry 100 100 100 03/16/18 08:00 03/16/18 08:43 03/16/18 11:26 Temperature 100 F H Pulse Rate 109 H Respiratory Rate 16 16 16 Blood Pressure 109/77 Pulse Oximetry 100 100 100 Intake & Output 03/15/18 03/16/18 03/16/18 18:59 06:59 18:59 Intake Total 2163 / 2163 2269 / 2269 1100 / 1100 Output Total 2452 / 2452 1750 / 1750 Balance -289 / -289 519 / 519 1100 / 1100 Weight 70.6 kg Intake: IV 1650 / 1650 1700 / 1700 1100 / 1100 D5W/Normal Saline Inj 1,000 ML 1000 / 1000 1000 / 1000 1000 / 1000 @ 84 mls/hr IV.CONT .[id number] KARINA Rx#:[id number] Levaquin 750 mg Premix Inj 150 200 / 200 ML @ 100 mls/hr IV.SIG Q24H KARINA Rx#:[id number] KCl 20 mEq Premix Inj 20 meq In 200 / 200 100 / 100 100 / 100 100 ml @ 50 mls/hr IV.SIG Q2H PRN Rx#:[id number] KCl 40 mEq Premix Inj 40 meq In 100 / 100 100 ml @ 25 mls/hr IV.SIG UNSCH PRN Rx#:[id number] Vancomycin Inj 1,000 MG In NS 250 / 250 500 / 500 Inj 250 ML @ 250 mls/hr IV.SIG Q12H KARINA Rx#:[id number] Tube Feeding 338 / 338 369 / 369 Tube Irrigant 175 / 175 200 / 200 Output: Urine Amount (Catheter) 2452 / 2452 1750 / 1750 Indwelling Urethral Catheter 245 / 2452 1750 / 1750 Other: Date of Last Bowel Movement 03/16/18 03/16/18 # Incontinent Bowel Movements 2 Result Diagrams: 03/15/18 03:35 03/16/18 03:45 Other Results: Microbiology 03/12/18 00:46 Blood - Peripheral Aerobic Blood Culture - Preliminary No growth in 4 days 03/12/18 00:46 Blood - Peripheral Anaerobic Blood Culture - Preliminary No growth in 4 days 03/12/18 00:40 Blood - Peripheral Aerobic Blood Culture - Preliminary No growth in 4 days 03/12/18 00:40 Blood - Peripheral Anaerobic Blood Culture - Preliminary No growth in 4 days 03/15/18 23:15 Stool Stool Occult Blood (ABEBE) - Final Hemoccult negative 03/15/18 04:50 Sputum - Endotracheal Gram Stain - Final 03/11/18 22:30 Sputum - Endotracheal Gram Stain - Final 03/11/18 22:30 Sputum - Endotracheal Sputum Culture - Final Stenotrophomonas maltophilia 03/09/18 19:21 Blood - Peripheral Aerobic Blood Culture - Final No growth in 5 days 03/09/18 19:21 Blood - Peripheral Anaerobic Blood Culture - Final No growth in 5 days 03/09/18 19:28 Blood - Peripheral Aerobic Blood Culture - Final No growth in 5 days 03/09/18 19:28 Blood - Peripheral Anaerobic Blood Culture - Final No growth in 5 days 03/08/18 11:00 Blood - Peripheral Aerobic Blood Culture - Final No growth in 5 days 03/08/18 11:00 Blood - Peripheral Anaerobic Blood Culture - Final No growth in 5 days 03/08/18 11:09 Blood - Peripheral Aerobic Blood Culture - Final No growth in 5 days 03/08/18 11:09 Blood - Peripheral Anaerobic Blood Culture - Final No growth in 5 days 03/09/18 16:45 Sputum - Endotracheal Gram Stain - Final 03/09/18 16:45 Sputum - Endotracheal Sputum Culture - Final Heavy growth normal respiratory ramesh 03/06/18 05:12 Blood - Peripheral Aerobic Blood Culture - Final Staphylococcus coag negative 03/06/18 05:12 Blood - Peripheral Anaerobic Blood Culture - Final Staphylococcus epidermidis 03/05/18 15:33 Blood - Peripheral Aerobic Blood Culture - Final No growth in 5 days 03/05/18 15:33 Blood - Peripheral Anaerobic Blood Culture - Final Escherichia coli ESBL positive 03/08/18 17:55 Catheterized Urine Urine Culture - Final No growth in 48 hours 03/07/18 16:00 Sputum - Endotracheal Gram Stain - Final 03/07/18 16:00 Sputum - Endotracheal Sputum Culture - Final Heavy growth normal respiratory ramesh 03/05/18 12:55 Blood - Peripheral Aerobic Blood Culture - Final Escherichia coli ESBL positive 03/05/18 12:55 Blood - Peripheral Anaerobic Blood Culture - Final Escherichia coli ESBL positive Imaging: ITS Impressions Chest X-Ray 03/07/18 00:00 CONCLUSION: 1. Persistent left lower lobe consolidation and pleural effusion. 2. Interval resolution of diffuse infiltrates in the right lung and reduction in the infiltrates in the left upper lung. Chest X-Ray 03/09/18 08:51 CONCLUSION: 1. Interval removal of left subclavian central line. 2. Stable small left pleural effusion and associated airspace disease in the left lower lobe. 3. Continued improving aeration of the left upper lung zone. 4. Stable mild airspace disease in the right lower lung zone. Chest X-Ray 03/11/18 21:53 CONCLUSION: Basilar airspace disease and pleural effusions similar to March 09. Endotracheal tube tip just above raz. Head CT 03/12/18 06:59 CONCLUSION: 1. No acute intracranial abnormality. 2. Minimal fluid in the mastoid air cells. Chest X-Ray 03/12/18 21:40 CONCLUSION: Placement of a right central line with tip in right atrium. No pneumothorax. Chest X-Ray 03/14/18 06:00 CONCLUSION: 1. No significant interval change. 2. Stable tubes and lines. 3. Stable small bilateral pleural effusions and associated lower lung zone airspace disease. Chest X-Ray 03/15/18 06:00 CONCLUSION: 1. No significant interval change. 2. Stable tubes and lines. 3. Stable bilateral [id number] pleural effusions with associated lower lobe airspace disease. Objective Remarks: GENERAL: Patient is 62 yo female patient intubated and off sedation SKIN: Warm and dry. No rash. Sacral DTI HEAD: Normocephalic. EYES: No scleral icterus. No injection or drainage. NECK: Supple, trachea midline. No JVD or lymphadenopathy. CARDIOVASCULAR: Tachycardic, RR. S1, S2. No S4. Without murmurs, gallops, or rubs. RESPIRATORY: Breath sounds equal bilaterally. No accessory muscle use. Diminished in the bases bilaterally. GASTROINTESTINAL: Abdomen soft, non-tender, nondistended. Hypoactive bowel sounds appreciated. MUSCULOSKELETAL: Trace bilateral lower extremity edema. NEURO: Intubated, opens eyes, do not follow commands but tracks. Positive gag and cough. Positive corneal reflex. Intermittent movements of bilateral upper extremity, no purposeful movements noted. Involuntary squeezing with hands Assessment and Plan - Assessment and Plan Plan: Neuro/Psych: Severe metabolic encephalopathy Recent aneurysmal subarachnoid hemorrhage treated at [facility] in January 2018 Off all sedation. Encephalopathy most likely metabolic from severe sepsis Repeat CT brain showed no acute abnormalities. EEG significant encephalopathy MRI brain: previously noted subarachnoid hemorrhage overlying the occipital lobes has resolved. Tiny trace of residual hemorrhage in the posterior lateral ventricles. Stable chronic white matter changes. No new or acute intracranial process. Neurology consult requested Dr. Arellano following. EEG performed this a.m. with results pending MRI brain/C-spine today Currently on gabapentin 600 mg 3 times daily/home medication. Will hold secondary to AMS Currently on cyclobenzaprine 5 mg every 8 hours. Hold secondary to AMS Acetaminophen 650 every 6 hours as needed fever Pulm: Acute hypoxemic respiratory failure HCAP Extubated and reintubated on 03/11, failing CPAP trials due to low tidal volumes. vent day 5 PRVC 16/500/1/5/35 Ventilator bundle Albuterol/ipratropium aerosols every 4 hours with albuterol aerosols every 2 hours. Dyspnea Daily spontaneous breathing trials CT pulmonary angiogram chest: No PE, minimal consolidative changes left base Family PSV trial secondary to low tidal volumes CV: A. fib/sinus tachycardia Septic shock Hyperlipidemia Holding metoprolol tartrate 50mg Q12 Monitor HR and BP keep MAP>65mmHg. Start as needed IV metoprolol 2.5 mg every 6 hours for intermittent tachycardia Pravachol 20mg daily for dyslipidemia - Elevated troponin, type II demand ischemia NSTEMI - Echo 03/06 EF 50-55% - Will not anticoagulate at this time given risk/benefit with recent head bleed Cortisol level: 41 Cards has followed Renal/FEN/: Urinary retention Monitor renal function, electrolytes replacement per protocol. Replace electrolytes as needed Continue oxybutynin 5 mg every 8 hours GI: Elevated AST, Alk phos Monitor LFT's, CT abd/pelvis without evidence of overt acute cholecystitis Tube feeds- Glucerna 1.5 with goal rate 45ml/hr Lansoprazole for GI prophylaxis Docusate sodium/senna 1 tablet twice daily for bowel regimen CMP ordered for a.m. ID: Urinary tract infection ESBL E. coli bacteremia Pneumonia with Stenotrophomonas s/p Septic shock ID is following Continue with abx per ID (levofloxacin, Vancomycin ) Follow up blood cultures negative 03/11 sputum Stenotrophomonas 03/07: Sputum cx: NG 03/08, 03/09 BC: NGTD 03/06 BC Coag negative staph 03/05 BC: E.coli bacteremia 03/01 BC: E.coli ESBL 03/01 Urine cx: GNR Heme: Leukopenia Normocytic anemia Thrombocytopenia likely 2nd sepsis -Monitor CBC, s/p 2u PRBC 03/06 Heme is following- Dr. Miller Hep PLT ab negative FEN TIBC both low MSKRheum Sacral deep tissue injury SLE positive History of RF - present on admission - does not appear grossly infected - likely not the source of infection - management per wound care nurse Endo: SSI if needed for glycemic control On levothyroxine 50mcg daily. TSH: 0.47 GI prophylaxis- On lansoprazole 30 mg daily DVT prophylaxis- SCD, hold Heparin Sq due to recent [employer] bleed in January ( MRI brain 01/29) and thrombocytopenia Lines: Left subclavian CVL placed 03/12 Level 2 follow-up
--- NOTE | 2018-03-16 12:18 | P.DIET ---
Nutritional Evaluation Type of nutrition evaluation: follow-up Nutrition consult regarding: Tube Feeding Nutrition screening: Pressure Injury Subjective Subjective Comments: [facility] Objective - Diagnosis SVT - Objective % IBW: 95 Body Weight Used for Calculations: IBW (44.1kg) Energy Needs - Lower Range (kCal/kg): 33 Energy Needs - Upper Range (kCal/kg): 38 Lower Limit kCal/kg (kCals): 1,455 Upper Limit kCal/kg (kCals): 1,676 Lower Limit Protein Factor (Grams per Kg): 1.2 Upper Limit Protein Factor (Grams per Kg): 1.8 Lower Protein Needs (Protein): 53 Upper Protein Needs (Protein): 79 Dietitian Reviewed in Medical Record: Curent medications, Intake & Output, Labs , Tube feeding, Wound/DTI Diet Order: TF only Wound Care Note: 03/07 WOC consult: 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 Objective Comments: PMH: HTN, DM hypothyroidism, Lupus, RA, Anemia, Subarachnoid Hemorrhage, intramedullary spinal bleed Meds include: Synthroid Labs include: Glu 125, Ca 7.1, Iron 11, TIBC 81, %sat 13.5, POC Glu 139, 145, WBC 3.3, Hgb 7.5, Hct 22.2 +2 BM's Feeding - Current Tube Feeding Tube Feeding Product: Glucerna 1.5 Tube Feeding Method: Pump Tube Feeding Rate: 30 Current kCals Provided by Tube Feedin,080 Current Protein Provided by Tube Feeding (gPRO): 59 Medications That Affect Tube Feeding Run Time: Synthroid Total Time Off: 2 hours Current Free H2O Provided (m/l): 546 Assessment Assessment: Pt at nutritional risk r/t the need for a TF for nutrition support. PT REASSESSED. Pt remains intubated, off sedation, failing CPAP trials. Current TF Glucerna 1.5 is running at 30 ml/hr for 22 hrs (hold one hr before and after Synthroid). Due to unstageable sacral wound and pt's increased nutritional needs , recommend a new goal rate of 50 ml/hr for 22 hrs, providing 1650 kcals, 91 gms protein and 835 mls free water. Also recommend Jamal 1 packet bid via feeding tube to promote wound healing. Reviewed WOC consult, notes, labs. Will monitor TF tolerance, clinical course. Recommendations: PT REASSESSED Recommend TF Glucerna 1.5 with new goal rate 50 ml/hr for 22 hrs (Synthroid) Recommend Jamal 1 packet bid via feeding tube to promote wound healing. Dietitian to Monitor: Lab values, Intake & Output, Tube feeding tolerance, Wound /skin status, Medical course
[2018-03-16] MEDS: Hypromellose 0.3% Opth Gel 10 GM Bottle EACH EYE SCH ×2 (13:42→23:43)
--- NOTE | 2018-03-16 14:28 | MG ---
cc: Malinda Gutierrez MD DATE OF : 1955 AGE: [age] years old. EEG NUMBER: [id number] ROOM: [id number] REFERRING PHYSICIAN: Dr. Arellano. NOTE: Intubated, obtunded. No sedatives. Photic done before start of EEG. The patient did not follow commands in lower extremities or left upper. Tried to squeeze right hand. Last EEG 03/12/2018 consistent with encephalopathy. INDICATIONS: History of subarachnoid hemorrhage, cervical vertebral anterior circulation aneurysm, lupus. MEDICATIONS: Neurontin, Levaquin, Synthroid, Lopressor, Ditropan, Pravachol, vancomycin. DESCRIPTION OF RECORD: There is overall 3-4 Hz background predominantly at times 2 Hz, variable, but overall background slowing is seen throughout the recording. Some myogenic artifact eye movement notable. No epileptiform features. IMPRESSION: Abnormal electrocardiogram due to background slowing consistent with what looks like a moderate encephalopathy. Photic stimulation was done towards the end without any significant driving response. Clinical correlation. Malinda Gutierrez MD DF/MARYANN , 02:10 PM , 02:26 PM
--- NOTE | 2018-03-16 14:37 | P.PNID ---
Subjective Remarks: Patient is on the ventilator. On CPAP. Tolerated 8 hours CPAP yesterday. Temp spike to 102. Not following commands. Sputum culture has Stenotrophomonas from 03/11/2018. Antibiotics: Vancomycin Levaquin. Lines: R. subclavian without evidence of infection. Past Medical History: Diabetes mellitus, hypertension, hypothyroidism, systemic lupus erythematosus, rheumatoid arthritis, anemia, recent subarachnoid hemorrhage, C6 mass resection, hysterectomy, bladder sling, appendectomy, C4-C7 laminectomy, C4-T1 posterior fusion. Allergies/Adverse Reactions: Allergies codeine Allergy (Intermediate, Verified 01/24/18 17:12) nitroglycerin Adverse Reaction (Severe, Verified 01/25/18 09:14) Nausea/Vomiting Objective 03/16/18 12:00 03/16/18 12:28 Temperature 101 F H 100.4 F H Pulse Rate 126 H Respiratory Rate 32 H Blood Pressure 104/76 Pulse Oximetry 100 Intake & Output 03/15/18 03/16/18 03/16/18 18:59 06:59 18:59 Intake Total 2163 / 2163 2269 / 2269 1100 / 1100 Output Total 2452 / 2452 1750 / 1750 Balance -289 / -289 519 / 519 1100 / 1100 Weight 70.6 kg Intake: IV 1650 / 1650 1700 / 1700 1100 / 1100 D5W/Normal Saline Inj 1,000 ML 1000 / 1000 1000 / 1000 1000 / 1000 @ 84 mls/hr IV.CONT .[id number] KARINA Rx#:[id number] Levaquin 750 mg Premix Inj 150 200 / 200 ML @ 100 mls/hr IV.SIG Q24H KARINA Rx#:[id number] KCl 20 mEq Premix Inj 20 meq In 200 / 200 100 / 100 100 / 100 100 ml @ 50 mls/hr IV.SIG Q2H PRN Rx#:[id number] KCl 40 mEq Premix Inj 40 meq In 100 / 100 100 ml @ 25 mls/hr IV.SIG UNSCH PRN Rx#:[id number] Vancomycin Inj 1,000 MG In NS 250 / 250 500 / 500 Inj 250 ML @ 250 mls/hr IV.SIG Q12H KARINA Rx#:[id number] Tube Feeding 338 / 338 369 / 369 Tube Irrigant 175 / 175 200 / 200 Output: Urine Amount (Catheter) 2452 / 2452 1750 / 1750 Indwelling Urethral Catheter 2452 / 2452 1750 / 1750 Other: Date of Last Bowel Movement 03/16/18 03/16/18 # Incontinent Bowel Movements 2 03/12/18 00:46 Blood - Peripheral Aerobic Blood Culture - Preliminary No growth in 4 days 03/12/18 00:46 Blood - Peripheral Anaerobic Blood Culture - Preliminary No growth in 4 days 03/12/18 00:40 Blood - Peripheral Aerobic Blood Culture - Preliminary No growth in 4 days 03/12/18 00:40 Blood - Peripheral Anaerobic Blood Culture - Preliminary No growth in 4 days 03/15/18 23:15 Stool Stool Occult Blood (ABEBE) - Final Hemoccult negative 03/15/18 04:50 Sputum - Endotracheal Gram Stain - Final 03/15/18 04:50 Sputum - Endotracheal Sputum Culture - Pending 03/11/18 22:30 Sputum - Endotracheal Gram Stain - Final 03/11/18 22:30 Sputum - Endotracheal Sputum Culture - Final Stenotrophomonas maltophilia 03/09/18 19:21 Blood - Peripheral Aerobic Blood Culture - Final No growth in 5 days 03/09/18 19:21 Blood - Peripheral Anaerobic Blood Culture - Final No growth in 5 days 03/09/18 19:28 Blood - Peripheral Aerobic Blood Culture - Final No growth in 5 days 03/09/18 19:28 Blood - Peripheral Anaerobic Blood Culture - Final No growth in 5 days 03/08/18 11:00 Blood - Peripheral Aerobic Blood Culture - Final No growth in 5 days 03/08/18 11:00 Blood - Peripheral Anaerobic Blood Culture - Final No growth in 5 days 03/08/18 11:09 Blood - Peripheral Aerobic Blood Culture - Final No growth in 5 days 03/08/18 11:09 Blood - Peripheral Anaerobic Blood Culture - Final No growth in 5 days Lab - Hematology Results 03/15/18 03:35 WBC 3.3 L RBC 2.40 L Hgb 7.5 L Hct 22.2 L MCV 92.3 MCH 31.3 MCHC 34.0 RDW 16.2 Plt Count 134 L D MPV 9.0 Neut % (Auto) 73.1 H Lymph % (Auto) 20.0 [place] % (Auto) 6.4 Eos % (Auto) 0.2 Baso % (Auto) 0.3 Neut # (Auto) 2.4 Lymph # (Auto) 0.7 L [place] # (Auto) 0.2 Eos # (Auto) 0.0 Baso # (Auto) 0.0 WBC Differential . Differential Comment Auto diff final Lab - Chemistry Results 03/14/18 03/15/18 03/15/18 17:06 00:41 03:35 Sodium 141 Potassium 3.2 L Chloride 108 H Carbon Dioxide 25.7 Anion Gap 7 BUN 4 L Creatinine 0.18 L Estimated GFR Greater than 89 POC Glucose 93 94 Random Glucose 103 Calcium 7.3 L* Prot Corrected Calcium 9.0 Iron TIBC % Saturation Ferritin Total Bilirubin 0.3 AST 27 ALT 17 Alkaline Phosphatase 238 H Total Protein 4.2 L Albumin 1.0 L 03/15/18 03/15/18 03/15/18 05:25 10:23 13:50 Sodium Potassium Chloride Carbon Dioxide Anion Gap BUN Creatinine Estimated GFR POC Glucose 137 H 136 H 141 H Random Glucose Calcium Prot Corrected Calcium Iron TIBC % Saturation Ferritin Total Bilirubin AST ALT Alkaline Phosphatase Total Protein Albumin 03/15/18 03/15/18 03/16/18 21:07 21:07 00:32 Sodium Potassium 3.7 Chloride Carbon Dioxide Anion Gap BUN Creatinine Estimated GFR POC Glucose 139 H Random Glucose Calcium Prot Corrected Calcium Iron 11 L TIBC 81 L % Saturation 13.5 L Ferritin 995 H Total Bilirubin AST ALT Alkaline Phosphatase Total Protein Albumin 03/16/18 03/16/18 03/16/18 03:45 05:23 12:26 Sodium 142 Potassium 3.5 Chloride 109 H Carbon Dioxide 25.8 Anion Gap 7 BUN 4 L Creatinine 0.17 L Estimated GFR Greater than 89 POC Glucose 145 H 128 H Random Glucose 128 H Calcium 7.1 L* Prot Corrected Calcium 8.7 Iron TIBC % Saturation Ferritin Total Bilirubin AST ALT Alkaline Phosphatase Total Protein 4.3 L Albumin Imaging: ITS Impressions Head CT 03/12/18 06:59 CONCLUSION: 1. No acute intracranial abnormality. 2. Minimal fluid in the mastoid air cells. Chest X-Ray 03/15/18 06:00 CONCLUSION: 1. No significant interval change. 2. Stable tubes and lines. 3. Stable bilateral awqfe-hr-esirceit pleural effusions with associated lower lobe airspace disease. Physical Exam: GENERAL: No acute distress. HEENT: Pupils reactive to light. NECK: Supple. No swelling. LUNGS: Decreased breath sounds. HEART: Regular S1 and S2. No murmurs rubs or gallops. ABDOMEN: Soft, nontender. EXTREMITIES: No clubbing or cyanosis. Left hand edema. SKIN: No rash. NEUROLOGIC: Unable to fully assess. PSYCH: Unable to fully assess. Assessment and Plan (1) ESBL (extended spectrum beta-lactamase) producing bacteria infection Status: Acute Code(s): A49.9 - Bacterial infection, unspecified; Z16.12 - Extended spectrum beta lactamase (ESBL) resistance (2) Hospital acquired PNA Status: Acute Code(s): J18.9 - Pneumonia, unspecified organism (3) Acute respiratory failure Status: Acute Code(s): J96.00 - Acute respiratory failure, unspecified whether with hypoxia or hypercapnia - Plan Continue Levaquin for Stenotrophomonas. Continue vancomycin Blood cultures. Urinalysis/C&S if indicated. Add Zosyn. Monitor sputum culture. Monitor progress Monitor va
[2018-03-16] MEDS ORDERED: Metoprolol Inj 5 MG/5 ML Vial IV.PUSH ONE (15:48)
[2018-03-16] MEDS ORDERED: Gadobutrol PF 7.5 MMOL/7.5 ML Vial (for RAD) IV.SIG ONE (16:40)
[2018-03-16 16:47] LABS: Bilirubin,Urine Negative (Negative); Clarity,Urine Clear (Clear); Color,Urine Yellow (Yellw/Straw); Glucose,Urine (UA) Negative (Negative); Hyaline Casts,Urine 1 /lpf (0-3); Leukocyte Esterase,Urine Negative (Negative); Mucus,Urine Few /lpf (Occasional); Nitrite,Urine Negative (Negative); Specific Gravity,Urine 1.009 (1.002-1.035); Urobilinogen,Urine 4 or Greater mg/dL (Less than 2)
--- NOTE | 2018-03-16 17:16 | MR ---
EXAM DATE: 03/16/2018 4:57 PM EDT AGE/SEX: 62 years / Female INDICATIONS: . Fever and sepsis with the patient being unresponsive. CLINICAL DATA: This is the patient's initial encounter. Patient reports that signs and symptoms have been present for 1 day and indicates a pain score of Nonresponsive. MEDICAL/SURGICAL HISTORY: Hypertension. Diabetes mellitus type II. Subarachnoid hemorrhage. F usion, cervical. Appendectomy. Hysterectomy. COMPARISON: [facility] [place]ST 1V SINGLE AP, 03/15/2018. [facility] [place] CERVICAL SPINE W & W/O CONTRAST, 2017. . TECHNIQUE: Multiplanar, multisequence MRI examination of the cervical spine was performed without an d with 7 ml Gadavist (gadobutrol) contrast as a single exam dose. FINDINGS: Vertebrae: Normal vertebral body height. Homogeneous marrow signal. There is surgical hardware at t he posterior elements extending from the C4 level to the T1 level. The patient is status post laminec brice at these levels. There is prevertebral soft tissue swelling. Alignment: Normal. Cord: There is abnormal signal within the cord extending from the C4 level down to the superior aspe ct of T1. This is over a 6.3 cm in length. The signal abnormality seen is increased signal on the T2 weighted images throughout this region. The cord appears enlarged in this region. There is a small fo cus of very bright increased signal on the T1 and T2-weighted images at the left lateral aspect of th e cord at the C7-T1 level extending over a 1 cm in length. This may represent small focus of hemorrha ge. Post Fossa: The cerebellar tonsils are normal in position. Post Contrast: No abnormal areas of enhancement are seen. There does appear to be a right pleural effusion and a possible left effusion. There is increased sig nal within the mastoid air cells. C2-C3: The thecal sac has a normal configuration. There is no evidence of disc herniation or spinal canal stenosis. The neural foramina are patent bilaterally. C3-C4: The thecal sac has a normal configuration. There is no evidence of disc herniation or spinal canal stenosis. The neural foramina are patent bilaterally. C4-C5: The thecal sac has a normal configuration. There is no evidence of disc herniation or spinal canal stenosis. The neural foramina are patent bilaterally. C5-C6: The thecal sac has a normal configuration. There is no evidence of disc herniation or spinal canal stenosis. The neural foramina are patent bilaterally. C6-C7: The thecal sac has a normal configuration. There is no evidence of disc herniation or spinal canal stenosis. The neural foramina are patent bilaterally. C7-T1: No epidural impressions seen. CONCLUSION: 1. Persistent abnormal signal in the cord extending from C4 down to T1. Much of this likely related to edema. The edema appears to extend over a smaller area on the current exam. There is a linear area of increased signal seen on the T1 and T2-weighted images at the left-sided cord at the C7-T1 level which may represent an area of focal hemorrhage within the cord. 2. Status post laminectomy with posterior fusion and hardware placed at the C4-T1 levels. 3. Prevertebral soft tissue swelling. 4. No focal fluid collection to suggest an abscess is seen. Electronically signed by: Best Alston MD 03/16/2018 5:15 PM EDT
[2018-03-16] MEDS: Collagenase Oint 30 GM Tube TOPICAL SCH (18:47)
--- NOTE | 2018-03-16 19:09 | MR ---
EXAM DATE: 03/16/2018 5:17 PM EDT AGE/SEX: 62 years / Female INDICATIONS: . Severe sepsis and patient is unresponsive. CLINICAL DATA: This is the patient's initial encounter. Patient reports that signs and symptoms have been present for 1 day and indicates a pain score of Nonresponsive. MEDICAL/SURGICAL HISTORY: Hypertension. Diabetes mellitus type II. Hypothyroidism. Subarachn oid hemorrhage Fusion, cervical. Appendectomy. Hysterectomy. Bladder sling. COMPARISON: [facility] – [place], CT HEAD W/O CONTRAST, 03/12/2018. [facility] – [place], MRI BRAIN W & W/O CONTRAST, 03/02/2018. . TECHNIQUE: Multiplanar, multisequence examination of the brain was performed without and with 7 ml Ga davist (gadobutrol) contrast as a single exam dose. FINDINGS: Cerebrum: There is mild generalized atrophy with ventricular size within normal limits given the degr ee of atrophy. There is a new focal area of increased FLAIR signal in the left occipital lobe with a ssociated mild restrictive diffusion and nodular enhancement. It is located at the baeza matter white matter junction and measures approximately 7 mm on the postcontrast enhanced images. This finding is new since the prior study. Additionally, there is a 3 mm nodular area of enhancement along the baeza m atter surface in the left lateral high convexity best visualized on the postcontrast images #122. Thi s was also not definitely seen previously. 2 additional nodular areas of enhancement measuring 3 mm a re seen in the left parietal high convexity on image 145 and 151. Minimal susceptibility artifact rem ains present in the dependent aspect of the occipital horns bilaterally. No midline shift or herniati on is present. White Matter: There is mild periventricular and subcortical white matter signal change. Posterior Fossa: The cerebellum and brainstem demonstrate no acute abnormality. The 4th ventricle is midline. The cerebellopontine angle is within normal limits. The cerebellar tonsils are normal in p osition. Diffusion Imaging: No areas of restricted diffusion are seen. Extracranial: There is increased fluid within the mastoid air cells bilaterally. CONCLUSION: 1. There is a new area of nodular enhancement, abnormal FLAIR signal, and mild restricted diffusion at the baeza matter white matter junction in the left occipital lobe. 3 additional small areas of nodu lar enhancement measuring approximately 3 mm are also identified along the baeza matter surface in the left parietal high convexity. Etiology is nonspecific. Metastatic disease is one consideration but farideh flores the history infection is another consideration. Suggest attention to these areas at follow-up im aging. 2. Increased fluid in the mastoid air cells bilaterally. Electronically signed by: Best Madsen MD 03/16/2018 7:07 PM EDT
[2018-03-16] MEDS: Dexmedetomidine Inj 200 MCG in Sodium Chlor 0.9% Inj 48 ML IV.CONT PRN (23:44)
[2018-03-17] MEDS: Dexmedetomidine Inj 200 MCG in Sodium Chlor 0.9% Inj 48 ML IV.CONT PRN ×4 (03:07→22:08)
[2018-03-17 03:37] LABS: Baso % (Auto) 0.3 % (0.0-2.0); Eos % (Auto) 0.6 % (0.0-4.0); Lymph # (Auto) 0.7 th/mm3 (1.0-4.8); Lymph % (Auto) 30.6 % (9.0-44.0); Mean Corpuscular HGB Conc 33.9 % (32.0-36.0); Mean Corpuscular Hemoglobin 30.9 pg (27.0-34.0); Mean Platelet Volume 8.1 fL (7.0-11.0); Mono # (Auto) 0.3 th/mm3 (0.0-0.9); Mono % (Auto) 10.5 % (0.0-8.0); Neut # (Auto) 1.4 th/mm3 (1.8-7.7); Platelet Count 148 th/mm3 (150-450); Red Blood Count 2.18 mil/mm3 (4.00-5.30); Red Cell Distribution Width 16.2 % (11.6-17.2); White Blood Count 2.4 th/mm3 (4.0-11.0)
[2018-03-17 04:05] LABS: Hematocrit 19.8 % (35.0-46.0); Hemoglobin 6.7 gm/dL (11.6-15.3)
[2018-03-17 04:14] LABS: Alanine Aminotransferase 13 U/L (10-53); Albumin 1.1 g/dL (3.4-5.0); Alkaline Phosphatase 179 U/L (45-117); Anion Gap 7 meq/L (5-15); Aspartate Aminotransferase 23 U/L (15-37); Blood Urea Nitrogen 5 mg/dL (7-18); Calcium 6.8 mg/dL (8.5-10.1); Chloride 109 meq/L (98-107); Glomerular Filtration Rate Greater Than 89 mL/min (>89); Glucose,Random 108 mg/dL (74-106); Magnesium 1.4 mg/dL (1.5-2.5); Phosphorus 2.1 mg/dL (2.5-4.9); Potassium 3.2 meq/L (3.5-5.1); Sodium 141 meq/L (136-145); Total Protein 4.5 g/dL (6.4-8.2)
[2018-03-17 04:28] LABS: Hematocrit 21.1 % (35.0-46.0); Hemoglobin 7.1 gm/dL (11.6-15.3); Mean Corpuscular HGB Conc 33.8 % (32.0-36.0); Mean Corpuscular Hemoglobin 30.7 pg (27.0-34.0); Mean Corpuscular Volume 90.7 fL (80.0-100.0); Platelet Count 146 th/mm3 (150-450); Red Blood Count 2.33 mil/mm3 (4.00-5.30); Red Cell Distribution Width 16.3 % (11.6-17.2); White Blood Count 3.2 th/mm3 (4.0-11.0)
--- NOTE | 2018-03-17 05:07 | XR ---
EXAM DATE: 03/17/2018 4:22 AM EDT AGE/SEX: 62 years / Female INDICATIONS: Shortness of breath. CLINICAL DATA: This is the patient's subsequent encounter. Patient reports that signs and symptoms h ave been present for 2 weeks and indicates a pain score of Nonresponsive. MEDICAL/SURGICAL HISTORY: Hypertension. Fusion, cervical. COMPARISON: [facility] [place], [place]ST 1V SINGLE AP, 03/15/2018. . FINDINGS: A single AP view of the chest demonstrates bibasilar densities and small pleural effusions. Heart nor mal in size. Endotracheal tube, nasogastric tube and right subclavian central line stable position.. The cardiomediastinal contours are unremarkable. Fusion rods along the cervical spine and cervical t horacic junction. CONCLUSION: Better aeration of the lungs with bibasilar densities and small pleural effusions. Electronically signed by: Devyn Davis MD 03/17/2018 5:06 AM EDT
[2018-03-17 05:20] LABS: Lymphocytes 12 % (9-44); Metamyelocytes 2 % (0-1); Monocytes 8 % (0-8); Tallied Nucleated RBC 1 (0-0)
[2018-03-17 05:21] LABS: Ovalocytes 1+; Platelet Morphology Normal (Normal)
[2018-03-17] MEDS: Gabapentin 300 MG Capsule PO SCH ×2 (09:30→15:27)
[2018-03-17] MEDS: Oral Hygiene Kit OROPHARYNG SCH ×2 (09:31→15:21)
[2018-03-17] MEDS: Hypromellose 0.3% Opth Gel 10 GM Bottle EACH EYE SCH ×3 (09:31→22:08)
[2018-03-17] MEDS: Chlorhexidine 0.12% Oral Kit 15 ML UDC OROPHARYNG SCH ×2 (09:31→22:08)
[2018-03-17] MEDS: Insulin NovoLIN Regular Correctional Sugar Inj SQ SCH ×2 (09:32→12:45)
[2018-03-17] MEDS: Levothyroxine 50 MCG Tablet PO SCH (09:32)
[2018-03-17] MEDS: Vancomycin Inj 1,000 MG in Sodium Chlor 0.9% Inj 250 ML IV.SIG SCH (09:32)
--- NOTE | 2018-03-17 09:40 | P.PNCC ---
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 she was sent to [facility] for procedural management of these. She was then transferred to [facility] on 02/28. Please see the dictated hospitalist consult note on 02/28 on admission to [facility] for a detailed record of the hospital course while at [facility]. Today, she was found to be very tachycardic in the 160s and hypotensive with sbp in the 70s. She was emergently transferred to the ICU after rapid response was called for evaluation and management of her hypotension. Of note, she did not have iv access. I met her on arrival to the ICU. I placed 2 18g piv. 12-lead EKG confirms sinus tachycardia. I due to the fast rate, I gave 6mg adenosine to slow it down diagnostically, and it slowed down temporarily to a HR in the 70s, confirming sinus rhythm. I performed bedside critical care echocardiography which demonstrates grossly preserve biventricular function. in particular, RV is decompressed and well-functioning. IVC is completely collapsable. no pericardial effusion. I gave her 3L NS bolus ivf which improved her SBP to 110s and decreased her HR to 110s. She is afebrile. stat CBC shows anemia (history of recent femoral artery pseudoaneurysm), CMP demonstrates elevated AST and Alk phos, elevated lactate at 3.7. Cr elevated above baseline. Patient denies any complaints to me. she is mostly iranian speaking, but communicates in basic Spanish. specifically denies chest pain, shortness of breath, fever/chills, nausea, vomiting, abdominal pain, constipation, diarrhea. I discussed with her family, she has been eating and drinking well even up to today. ROS otherwise negative. 03/02 Patient is awake lying in bed in TRAV. On room air oxygen. T:103.2 this morning She was hypotensive overnight initially placed on Neosyn now off pressor with BP 147/67 with MAP 96. 03/03 No events overnight. Seems more awake and alert this morning. T: 100.2 at midnight. BP and HR better ( 119/58 with MAP 83mmHg). On no pressors. BC from 03/01: E.coli ESBL 6/30: clinically improving. slightly tachycardic. on appropriate therapy for her ESBL e. coli. denies complaints. hemodynamically stable. on room air. 03/05: Patient developed worsening respiratory distress yesterday and required endotracheal intubation and was placed on mechanical ventilation. Hypotension overnight for which patient was started on phenylephrine. Developed A. fib with RVR and was started on amiodarone gtt. 03/06 Patient remains sedated and intubated. Tmax 101.6, On Amio drip. 03/07 Patient remains intubated off sedation. s/p transfusion 2u PRBC yesterday. Tolerating tube feeds. Afebrile. Off Amio drip. 03/08 Patient remains intubated. T:100.9 last night. 03/09 No events overnight. Tolerated CPAP for approx 4 hrs yesterday. Off sedation. Afebrile. 03/10 No events overnight T:100.1 at 4am, Awake, patient was on CPAP for short time yesterday and placed back on PRVC mode for low TV and tachycardia. 03/11 No events overnight. Tolerated CPAP x 4hrs yesterday. T:100.6 yesterday. On no sedation. 03/12 Patient was extubated yesterday reintubated last night for resp distress and AMS. Afebrile. On Diprivan infusion for sedation. 03/13: Remains intubated critical, remains encephalopathy unresponsive off sedation. Afebrile EEG showed significant encephalopathy no seizures. Right subclavian central line placed, remains on Luis-Synephrine to keep map above 65 03/14: Remains encephalopathy again unresponsive. Eyes are open but no tracking did not follow commands. Remains leukopenic. Weaned off Luis-Synephrine. Not tolerating CPAP due to low tidal volume 03/15: Continues to fail CPAP due to low tidal volume. IV Levaquin added yesterday by ID for stenotrophomonas in the sputum. Remains encephalopathic did not follow commands but eyes are spontaneously open. I have requested neurology consult today Subjective 03/16: T-max 100.1. Currently 99. EEG has been performed. Does not follow commands. Tube feeds at 30 cc an hour. Positive BM. 03/17 Patient remains intubated on Precedex drip but awake. Objective Vital Signs / I&O: Vital Signs 03/16/18 11:26 03/16/18 11:55 03/16/18 12:00 Temperature 101 F H Pulse Rate 113 H 126 H Respiratory Rate 16 24 32 H Blood Pressure 104/76 Pulse Oximetry 100 100 03/16/18 12:28 03/16/18 13:00 03/16/18 13:30 Temperature 100.4 F H Pulse Rate 123 H 124 H Respiratory Rate 11 L 9 L Blood Pressure 107/66 105/61 Pulse Oximetry 100 100 03/16/18 14:00 03/16/18 14:30 03/16/18 15:00 Temperature Pulse Rate 121 H 122 H 119 H Respiratory Rate 0 L 2 L 0 L Blood Pressure 104/65 101/69 106/62 Pulse Oximetry 100 100 100 03/16/18 15:30 03/16/18 15:31 03/16/18 15:37 Temperature Pulse Rate 118 H Respiratory Rate 0 L Blood Pressure 107/63 Pulse Oximetry 99 100 100 03/16/18 15:41 03/16/18 16:00 03/16/18 17:19 Temperature 100.5 F H Pulse Rate 116 H 132 H Respiratory Rate 18 Blood Pressure 112/84 131/84 Pulse Oximetry 100 03/16/18 18:00 03/16/18 19:00 03/16/18 19:19 Temperature Pulse Rate 120 H 150 H Respiratory Rate 10 L 13 16 Blood Pressure Pulse Oximetry 100 100 100 03/16/18 20:00 03/16/18 21:00 03/16/18 21:37 Temperature 98.2 F Pulse Rate 132 H 126 H 122 H Respiratory Rate 18 13 16 Blood Pressure 128/84 Pulse Oximetry 100 100 100 03/16/18 22:00 03/16/18 23:00 03/16/18 23:14 Temperature Pulse Rate 110 H 118 H 110 H Respiratory Rate 16 19 16 Blood Pressure Pulse Oximetry 100 99 99 03/17/18 00:00 03/17/18 01:00 03/17/18 02:00 Temperature 99 F Pulse Rate 106 H 93 H 97 H Respiratory Rate 16 16 19 Blood Pressure Pulse Oximetry 100 99 98 03/17/18 02:27 03/17/18 02:30 03/17/18 03:00 Temperature Pulse Rate 118 H 111 H 93 H Respiratory Rate 26 H 21 16 Blood Pressure 121/74 132/70 108/61 Pulse Oximetry 82 L 99 99 03/17/18 03:30 03/17/18 04:00 03/17/18 04:30 Temperature Pulse Rate 91 H 107 H 108 H Respiratory Rate 16 17 16 Blood Pressure 108/67 115/70 110/75 Pulse Oximetry 99 100 100 03/17/18 04:36 03/17/18 05:00 03/17/18 05:30 Temperature Pulse Rate 116 H 106 H 106 H Respiratory Rate 16 16 16 Blood Pressure 105/65 101/64 Pulse Oximetry 100 100 100 03/17/18 06:00 03/17/18 06:44 03/17/18 07:00 Temperature Pulse Rate 108 H 111 H 144 H Respiratory Rate 16 17 35 H Blood Pressure 141/88 H 131/80 Pulse Oximetry 100 100 78 L 03/17/18 07:08 03/17/18 07:55 03/17/18 07:56 Temperature Pulse Rate 140 H 114 H Respiratory Rate 26 H 26 H 16 Blood Pressure 135/79 Pulse Oximetry 95 Intake & Output 03/16/18 03/17/18 03/17/18 18:59 06:59 18:59 Intake Total 1542 / 1542 348 / 348 Output Total 975 / 975 2300 / 2300 Balance 567 / 567 -195 / -1951 Intake: IV 1100 / 1100 48 / 48 Precedex Inj 200 MCG In NS Inj 48 / 48 48 ML @ 0.2 MCG/KG/HR 3.53 mls/ hr IV.CONT TITRATE PRN Rx#: [id number] D5W/Normal Saline Inj 1,000 ML 1000 / 1000 @ 84 mls/hr IV.CONT .[id number] Rx#:[id number] KCl 20 mEq Premix Inj 20 meq In 100 / 100 100 ml @ 50 mls/hr IV.SIG Q2H PRN Rx#:[id number] Tube Feeding 322 / 322 200 / 200 Tube Irrigant 60 / 60 Water Bolus Amount 60 / 60 100 / 100 Output: Urine Amount (Catheter) 975 / 975 2300 / 2300 Indwelling Temp Sensing 2300 / 2300 Catheter Indwelling Urethral Catheter 975 / 975 Other: Date of Last Bowel Movement 03/16/18 03/17/18 # Bowel Movements 1 Weight On Admission 72.8 kg Result Diagrams: 03/17/18 04:15 03/17/18 03:20 Other Results: Abnormal Lab Results 03/16/18 03/16/18 03/16/18 03:45 12:26 15:28 WBC RBC Hgb Hct MCV MCH MCHC RDW Plt Count MPV Prelim Diff (Auto) Neut % (Auto) Lymph % (Auto) [place] % (Auto) Eos % (Auto) Baso % (Auto) Neut # (Auto) Lymph # (Auto) [place] # (Auto) Eos # (Auto) Baso # (Auto) WBC Differential Seg Neuts % (Manual) Band Neuts % (Manual) Lymphocytes % (Manual) Monocytes % (Manual) Metamyelocytes % (Man) Abs Neuts (Manual) Nucleated RBCs/100 WBC Differential Comment Platelet Estimate Platelet Morphology Ovalocytes Sodium Potassium Chloride Carbon Dioxide Anion Gap BUN Creatinine Estimated GFR POC Glucose 128 H Random Glucose Calcium Prot Corrected Calcium Phosphorus Magnesium Total Bilirubin AST ALT Alkaline Phosphatase Ammonia Total Protein Albumin Beta HCG, Quant Less than 1 Urine Color Yellow Urine Clarity Clear Urine pH 7.0 Ur Specific [place] 1.009 Urine Protein Negative Urine Glucose (UA) Negative Urine Ketones Negative Urine Occult Blood Negative Urine Nitrate Negative Urine Bilirubin Negative Urine Urobilinogen 4 or greater Ur Leukocyte Esterase Negative Urine RBC Less than 1 Urine WBC 9 H Urine WBC Clumps Rare H Hyaline Casts 1 Granular Casts 1 Urine Mucus Few H Micro UA Comment Cath-culture ind Urine Culture Comments Cath-cult indicated 03/16/18 03/17/18 03/17/18 18:43 03:20 03:20 WBC 2.4 L RBC 2.18 L Hgb 6.7 L* Hct 19.8 L* MCV 91.0 MCH 30.9 MCHC 33.9 RDW 16.2 Plt Count 148 L MPV 8.1 Prelim Diff (Auto) Slide review pending Neut % (Auto) 58.0 Lymph % (Auto) 30.6 [place] % (Auto) 10.5 H Eos % (Auto) 0.6 Baso % (Auto) 0.3 Neut # (Auto) 1.4 L Lymph # (Auto) 0.7 L [place] # (Auto) 0.3 Eos # (Auto) 0.0 Baso # (Auto) 0.0 WBC Differential Manual diff final Seg Neuts % (Manual) 68 Band Neuts % (Manual) 10 H Lymphocytes % (Manual) 12 Monocytes % (Manual) 8 Metamyelocytes % (Man) 2 H Abs Neuts (Manual) 1.9 Nucleated RBCs/100 WBC 2 H Differential Comment . Platelet Estimate Low L Platelet Morphology Normal Ovalocytes 1+ H Sodium Potassium Chloride Carbon Dioxide Anion Gap BUN Creatinine Estimated GFR POC Glucose 100 Random Glucose Calcium Prot Corrected Calcium Phosphorus Magnesium Total Bilirubin AST ALT Alkaline Phosphatase Ammonia 32 Total Protein Albumin Beta HCG, Quant Urine Color Urine Clarity Urine pH Ur Specific [place] Urine Protein Urine Glucose (UA) Urine Ketones Urine Occult Blood Urine Nitrate Urine Bilirubin Urine Urobilinogen Ur Leukocyte Esterase Urine RBC Urine WBC Urine WBC Clumps Hyaline Casts Granular Casts Urine Mucus Micro UA Comment Urine Culture Comments 03/17/18 03/17/18 03:20 04:15 WBC 3.2 L RBC 2.33 L Hgb 7.1 L Hct 21.1 L MCV 90.7 MCH 30.7 MCHC 33.8 RDW 16.3 Plt Count 146 L MPV 8.0 Prelim Diff (Auto) Neut % (Auto) Lymph % (Auto) [place] % (Auto) Eos % (Auto) Baso % (Auto) Neut # (Auto) Lymph # (Auto) [place] # (Auto) Eos # (Auto) Baso # (Auto) WBC Differential Seg Neuts % (Manual) Band Neuts % (Manual) Lymphocytes % (Manual) Monocytes % (Manual) Metamyelocytes % (Man) Abs Neuts (Manual) Nucleated RBCs/100 WBC Differential Comment Platelet Estimate Platelet Morphology Ovalocytes Sodium 141 Potassium 3.2 L Chloride 109 H Carbon Dioxide 25.0 Anion Gap 7 BUN 5 L Creatinine Less than 0.15 L Estimated GFR Greater than 89 POC Glucose Random Glucose 108 H Calcium 6.8 L* Prot Corrected Calcium 8.2 L D Phosphorus 2.1 L Magnesium 1.4 L Total Bilirubin 0.3 AST 23 ALT 13 Alkaline Phosphatase 179 H Ammonia Total Protein 4.5 L Albumin 1.1 L Beta HCG, Quant Urine Color Urine Clarity Urine pH Ur Specific [place] Urine Protein Urine Glucose (UA) Urine Ketones Urine Occult Blood Urine Nitrate Urine Bilirubin Urine Urobilinogen Ur Leukocyte Esterase Urine RBC Urine WBC Urine WBC Clumps Hyaline Casts Granular Casts Urine Mucus Micro UA Comment Urine Culture Comments Imaging: Head CT 03/12/18 06:59 CONCLUSION: 1. No acute intracranial abnormality. 2. Minimal fluid in the mastoid air cells. Cervical Spine MRI 03/16/18 00:00 CONCLUSION: 1. Persistent abnormal signal in the cord extending from C4 down to T1. Much of this likely related to edema. The edema appears to extend over a smaller area on the current exam. There is a linear area of increased signal seen on the T1 and T2-weighted images at the left-sided cord at the C7-T1 level which may represent an area of focal hemorrhage within the cord. 2. Status post laminectomy with posterior fusion and hardware placed at the C4- T1 levels. 3. Prevertebral soft tissue swelling. 4. No focal fluid collection to suggest an abscess is seen. Head MRI 03/16/18 00:00 CONCLUSION: 1. There is a new area of nodular enhancement, abnormal FLAIR signal, and mild restricted diffusion at the baeza matter white matter junction in the left occipital lobe. 3 additional small areas of nodular enhancement measuring approximately 3 mm are also identified along the baeza matter surface in the left parietal high convexity. Etiology is nonspecific. Metastatic disease is one consideration but given the history infection is another consideration. Suggest attention to these areas at follow-up imaging. 2. Increased fluid in the mastoid air cells bilaterally. Chest X-Ray 03/17/18 06:00 CONCLUSION: Better aeration of the lungs with bibasilar densities and small pleural effusions. Objective Remarks: GENERAL: Patient is 62 yo female patient intubated and off sedation SKIN: Warm and dry. No rash. Sacral DTI HEAD: Normocephalic. EYES: No scleral icterus. No injection or drainage. NECK: Supple, trachea midline. No JVD or lymphadenopathy. CARDIOVASCULAR: Tachycardic, RR. S1, S2. No S4. Without murmurs, gallops, or rubs. RESPIRATORY: Breath sounds equal bilaterally. No accessory muscle use. Diminished in the bases bilaterally. GASTROINTESTINAL: Abdomen soft, non-tender, nondistended. Hypoactive bowel sounds appreciated. MUSCULOSKELETAL: Trace bilateral lower extremity edema. NEURO: Intubated, awake. Assessment and Plan - Assessment and Plan Plan: Neuro/Psych: Severe metabolic encephalopathy Recent aneurysmal subarachnoid hemorrhage treated at [facility] in January 2018 On Precedex drip for sedation. Encephalopathy most likely metabolic from severe sepsis Repeat CT brain showed no acute abnormalities. EEG significant encephalopathy MRI brain: previously noted subarachnoid hemorrhage overlying the occipital lobes has resolved. Tiny trace of residual hemorrhage in the posterior lateral ventricles. Stable chronic white matter changes. No new or acute intracranial process. Neurology consult requested Dr. Arellano following. EEG: Mod. encephalopathy MRI brain 03/16 : There is a new area of nodular enhancement, abnormal FLAIR signal, and mild restricted diffusion at the baeza matter white matter junction in the left occipital lobe. 3 additional small areas of nodular enhancement measuring approximately 3 mm are also identified along the baeza matter surface in the left parietal high convexity. Etiology is nonspecific. MRI cervical spine 03/16: Persistent abnormal signal in the cord extending from C4 down to T1. Much of this likely related to edema. The edema appears to extend over a smaller area on the current exam. There is a linear area of increased signal seen on the T1 and T2-weighted images at the left-sided cord at the C7-T1 level which may represent an area of focal hemorrhage within the cord. Status post laminectomy with posterior fusion and hardware placed at the C4-T1 levels. Prevertebral soft tissue swelling. No focal fluid collection to suggest an abscess. Currently on gabapentin 600 mg 3 times daily/home medication on hold Currently on cyclobenzaprine 5 mg every 8 hours. Hold secondary to AMS Acetaminophen 650 every 6 hours as needed fever Pulm: Acute hypoxemic respiratory failure HCAP Extubated and reintubated on 03/11, failing CPAP trials due to low tidal volumes. PRVC 16/500/09/09/ Ventilator bundle Albuterol/ipratropium aerosols every 4 hours with albuterol aerosols every 2 hours. Dyspnea Daily spontaneous breathing trials CT pulmonary angiogram chest: No PE, minimal consolidative changes left base Failing PSV trial secondary to low tidal volumes CV: A. fib/sinus tachycardia Septic shock Hyperlipidemia Holding metoprolol tartrate 50mg Q12 Monitor HR and BP keep MAP>65mmHg. on IV metoprolol 2.5 mg every 6 hours for intermittent tachycardia Pravachol 20mg daily for dyslipidemia - Elevated troponin, type II demand ischemia NSTEMI - Echo 03/06 EF 50-55% - Will not anticoagulate at this time given risk/benefit with recent head bleed Cortisol level: 41 Cards has followed Renal/FEN/: Urinary retention Monitor renal function, electrolytes replacement per protocol. Will need K, Mag, Phos replacement today Continue oxybutynin 5 mg every 8 hours GI: Elevated AST, Alk phos Monitor LFT's, CT abd/pelvis without evidence of overt acute cholecystitis Tube feeds- Glucerna 1.5 with goal rate 45ml/hr Lansoprazole for GI prophylaxis Docusate sodium/senna 1 tablet twice daily for bowel regimen CMP ordered for a.m. ID: Urinary tract infection ESBL E. coli bacteremia Pneumonia with Stenotrophomonas s/p Septic shock ID is following Continue with abx per ID (levofloxacin, Vancomycin ) Follow up blood cultures negative 03/11 sputum Stenotrophomonas 03/07: Sputum cx: NG 03/08, 03/09 BC: NGTD 03/06 BC Coag negative staph 03/05 BC: E.coli bacteremia 03/01 BC: E.coli ESBL 03/01 Urine cx: GNR Heme: Leukopenia Normocytic anemia Thrombocytopenia likely 2nd sepsis -Monitor CBC, s/p 2u PRBC 03/06 Heme is following- Dr. Miller Hep PLT ab negative FEN TIBC both low MSKRheum Sacral deep tissue injury SLE positive History of RF - present on admission - does not appear grossly infected - likely not the source of infection - management per wound care nurse Endo: SSI if needed for glycemic control On levothyroxine 50mcg daily. TSH: 0.47 GI prophylaxis- On lansoprazole 30 mg daily DVT prophylaxis- SCD, hold Heparin Sq due to recent [employer] bleed in January ( MRI brain 01/29) and thrombocytopenia Lines: Left subclavian CVL placed 03/12 Level 3 follow-up
[2018-03-17] MEDS: Potassium Phosphate Inj 30 MMOL in Sodium Chlor 0.9% Inj 250 ML IV.SIG PRN (10:11)
[2018-03-17] MEDS: Dextrose 5%/NaCl 0.9% Inj 1,000 ML IV.CONT SCH ×2 (13:31→15:20)
[2018-03-17 14:26] LABS: Hematocrit 21.3 % (35.0-46.0)
[2018-03-17] MEDS: Collagenase Oint 30 GM Tube TOPICAL SCH (15:29)
--- NOTE | 2018-03-17 16:36 | P.PNID ---
Subjective Remarks: Patient is on the ventilator. Family is at bedside. More awake. Closes her eyes to command, Raises both arms to command, moves right foot to command. Not following command with the left foot. Temperature is lower. Repeat sputum culture has gram-negative lary. Sputum culture has Stenotrophomonas from 03/11/2018. Antibiotics: Vancomycin Levaquin. Lines: R. subclavian without evidence of infection. Past Medical History: Diabetes mellitus, hypertension, hypothyroidism, systemic lupus erythematosus, rheumatoid arthritis, anemia, recent subarachnoid hemorrhage, C6 mass resection, hysterectomy, bladder sling, appendectomy, C4-C7 laminectomy, C4-T1 posterior fusion. Allergies/Adverse Reactions: Allergies codeine Allergy (Intermediate, Verified 01/24/18 17:12) nitroglycerin Adverse Reaction (Severe, Verified 01/25/18 09:14) Nausea/Vomiting Objective Vital Signs 03/16/18 17:19 03/16/18 18:00 03/16/18 19:00 Temperature Pulse Rate 132 H 120 H 150 H Respiratory Rate 10 L 13 Blood Pressure Pulse Oximetry 100 100 03/16/18 19:19 03/16/18 20:00 03/16/18 21:00 Temperature 98.2 F Pulse Rate 132 H 126 H Respiratory Rate 16 18 13 Blood Pressure Pulse Oximetry 100 100 100 03/16/18 21:37 03/16/18 22:00 03/16/18 23:00 Temperature Pulse Rate 122 H 110 H 118 H Respiratory Rate 16 16 19 Blood Pressure 128/84 Pulse Oximetry 100 100 99 03/16/18 23:14 03/17/18 00:00 03/17/18 01:00 Temperature 99 F Pulse Rate 110 H 106 H 93 H Respiratory Rate 16 16 16 Blood Pressure Pulse Oximetry 99 100 99 03/17/18 02:00 03/17/18 02:27 03/17/18 02:30 Temperature Pulse Rate 97 H 118 H 111 H Respiratory Rate 19 26 H 21 Blood Pressure 121/74 132/70 Pulse Oximetry 98 82 L 99 03/17/18 03:00 03/17/18 03:30 03/17/18 04:00 Temperature Pulse Rate 93 H 91 H 107 H Respiratory Rate 16 16 17 Blood Pressure 108/61 108/67 115/70 Pulse Oximetry 99 99 100 03/17/18 04:30 03/17/18 04:36 03/17/18 05:00 Temperature Pulse Rate 108 H 116 H 106 H Respiratory Rate 16 16 16 Blood Pressure 110/75 105/65 Pulse Oximetry 100 100 100 03/17/18 05:30 03/17/18 06:00 03/17/18 06:44 Temperature Pulse Rate 106 H 108 H 111 H Respiratory Rate 16 16 17 Blood Pressure 101/64 141/88 H 131/80 Pulse Oximetry 100 100 100 03/17/18 07:00 03/17/18 07:08 03/17/18 07:30 Temperature Pulse Rate 144 H 140 H 101 H Respiratory Rate 35 H 26 H 18 Blood Pressure 135/79 133/78 Pulse Oximetry 78 L 95 100 03/17/18 07:55 03/17/18 07:56 03/17/18 08:00 Temperature 98.5 F Pulse Rate 114 H 102 H Respiratory Rate 26 H 16 19 Blood Pressure 131/79 Pulse Oximetry 100 03/17/18 08:30 03/17/18 09:00 03/17/18 09:30 Temperature Pulse Rate 105 H 104 H 104 H Respiratory Rate 17 14 16 Blood Pressure 125/62 114/68 123/69 Pulse Oximetry 100 100 100 03/17/18 10:00 03/17/18 10:30 03/17/18 11:00 Temperature Pulse Rate 100 H 94 H 90 Respiratory Rate 14 17 16 Blood Pressure 114/61 110/62 107/64 Pulse Oximetry 100 100 100 03/17/18 11:30 03/17/18 12:00 03/17/18 12:29 Temperature 98.7 F Pulse Rate 90 88 89 Respiratory Rate 15 17 16 Blood Pressure 110/66 112/68 Pulse Oximetry 100 100 03/17/18 12:30 03/17/18 15:42 03/17/18 15:43 Temperature Pulse Rate 89 120 H Respiratory Rate 19 22 24 Blood Pressure 115/68 Pulse Oximetry 100 100 Intake & Output 03/16/18 03/17/18 03/17/18 18:59 06:59 18:59 Intake Total 1692 / 1692 348 / 348 1054 / 1054 Output Total 975 / 975 2300 / 2300 Balance 717 / 717 -195 / -1951 1054 / 1054 Intake: IV 1250 / 1250 48 / 48 1054 / 1054 Precedex Inj 200 MCG In NS Inj 48 / 48 50 / 50 48 ML @ 0.2 MCG/KG/HR 3.53 mls/ hr IV.CONT TITRATE PRN Rx#: [id number] D5W/Normal Saline Inj 1,000 ML 1000 / 1000 1000 / 1000 @ 84 mls/hr IV.CONT .[id number] [facility] Rx#:[id number] Levaquin 750 mg Premix Inj 150 150 / 150 ML @ 100 mls/hr IV.SIG Q24H [facility] Rx#:[id number] KCl 20 mEq Premix Inj 20 meq In 100 / 100 100 ml @ 50 mls/hr IV.SIG Q2H PRN Rx#:[id number] Potassium Phosphate Inj 30 MMOL 4 / 4 In NS Inj 250 ML @ 42 mls/hr IV.SIG UNSCH PRN Rx#:[id number] Tube Feeding 322 / 322 200 / 200 Tube Irrigant 60 / 60 Water Bolus Amount 60 / 60 100 / 100 Output: Urine Amount (Catheter) 975 / 975 2300 / 2300 Indwelling Temp Sensing 2300 / 2300 Catheter Indwelling Urethral Catheter 975 / 975 Other: Date of Last Bowel Movement 03/16/18 03/17/18 03/17/18 # Bowel Movements 1 Weight On Admission 72.8 kg 03/16/18 15:28 Catheterized Urine Urine Culture - Preliminary No growth in 24 hours 03/16/18 19:40 Blood - Line Aerobic Blood Culture - Preliminary No growth in 1 day 03/16/18 19:40 Blood - Line Anaerobic Blood Culture - Preliminary No growth in 1 day 03/16/18 19:45 Blood - Line Aerobic Blood Culture - Preliminary No growth in 1 day 03/16/18 19:45 Blood - Line Anaerobic Blood Culture - Preliminary No growth in 1 day 03/12/18 00:46 Blood - Peripheral Aerobic Blood Culture - Final No growth in 5 days 03/12/18 00:46 Blood - Peripheral Anaerobic Blood Culture - Final No growth in 5 days 03/12/18 00:40 Blood - Peripheral Aerobic Blood Culture - Final No growth in 5 days 03/12/18 00:40 Blood - Peripheral Anaerobic Blood Culture - Final No growth in 5 days 03/15/18 04:50 Sputum - Endotracheal Gram Stain - Final 03/15/18 04:50 Sputum - Endotracheal Sputum Culture - Preliminary gram negative rods 03/15/18 23:15 Stool Stool Occult Blood (ABEBE) - Final Hemoccult negative 03/11/18 22:30 Sputum - Endotracheal Gram Stain - Final 03/11/18 22:30 Sputum - Endotracheal Sputum Culture - Final Stenotrophomonas maltophilia Lab - Hematology Results 03/17/18 03/17/18 03/17/18 03:20 04:15 13:26 WBC 2.4 L 3.2 L RBC 2.18 L 2.33 L Hgb 6.7 L* 7.1 L 7.0 L Hct 19.8 L* 21.1 L 21.3 L MCV 91.0 90.7 MCH 30.9 30.7 MCHC 33.9 33.8 RDW 16.2 16.3 Plt Count 148 L 146 L MPV 8.1 8.0 Prelim Diff (Auto) Slide review pending Neut % (Auto) 58.0 Lymph % (Auto) 30.6 [place] % (Auto) 10.5 H Eos % (Auto) 0.6 Baso % (Auto) 0.3 Neut # (Auto) 1.4 L Lymph # (Auto) 0.7 L [place] # (Auto) 0.3 Eos # (Auto) 0.0 Baso # (Auto) 0.0 WBC Differential Manual diff final Seg Neuts % (Manual) 68 Band Neuts % (Manual) 10 H Lymphocytes % (Manual) 12 Monocytes % (Manual) 8 Metamyelocytes % (Man) 2 H Abs Neuts (Manual) 1.9 Nucleated RBCs/100 WBC 2 H Differential Comment . Platelet Estimate Low L Platelet Morphology Normal Ovalocytes 1+ H Lab - Chemistry Results 03/15/18 03/15/18 03/16/18 21:07 21:07 00:32 Sodium Potassium 3.7 Chloride Carbon Dioxide Anion Gap BUN Creatinine Estimated GFR POC Glucose 139 H Random Glucose Calcium Prot Corrected Calcium Phosphorus Magnesium Iron 11 L TIBC 81 L % Saturation 13.5 L Ferritin 995 H Total Bilirubin AST ALT Alkaline Phosphatase Ammonia Total Protein Albumin Beta HCG, Quant Imaging: ITS Impressions Head CT 03/12/18 06:59 CONCLUSION: 1. No acute intracranial abnormality. 2. Minimal fluid in the mastoid air cells. Cervical Spine MRI 03/16/18 00:00 CONCLUSION: 1. Persistent abnormal signal in the cord extending from C4 down to T1. Much of this likely related to edema. The edema appears to extend over a smaller area on the current exam. There is a linear area of increased signal seen on the T1 and T2-weighted images at the left-sided cord at the C7-T1 level which may represent an area of focal hemorrhage within the cord. 2. Status post laminectomy with posterior fusion and hardware placed at the C4- T1 levels. 3. Prevertebral soft tissue swelling. 4. No focal fluid collection to suggest an abscess is seen. Head MRI 03/16/18 00:00 CONCLUSION: 1. There is a new area of nodular enhancement, abnormal FLAIR signal, and mild restricted diffusion at the baeza matter white matter junction in the left occipital lobe. 3 additional small areas of nodular enhancement measuring approximately 3 mm are also identified along the baeza matter surface in the left parietal high convexity. Etiology is nonspecific. Metastatic disease is one consideration but given the history infection is another consideration. Suggest attention to these areas at follow-up imaging. 2. Increased fluid in the mastoid air cells bilaterally. Chest X-Ray 03/17/18 06:00 CONCLUSION: Better aeration of the lungs with bibasilar densities and small pleural effusions. Physical Exam: GENERAL: No acute distress. HEENT: Pupils reactive to light. No icterus NECK: Supple. No swelling. LUNGS: Rhonchi at the bases. HEART: Regular S1 and S2. No murmurs rubs or gallops. ABDOMEN: Soft, nontender. EXTREMITIES: No clubbing or cyanosis. Bilateral hand edema. SKIN: No rash. NEUROLOGIC: Unable to fully assess. PSYCH: Unable to fully assess. Assessment and Plan (1) ESBL (extended spectrum beta-lactamase) producing bacteria infection Status: Acute Code(s): A49.9 - Bacterial infection, unspecified; Z16.12 - Extended spectrum beta lactamase (ESBL) resistance (2) Hospital acquired PNA Status: Acute Code(s): J18.9 - Pneumonia, unspecified organism (3) Acute respiratory failure Status: Acute Code(s): J96.00 - Acute respiratory failure, unspecified whether with hypoxia or hypercapnia - Plan She appears improved. Continue Levaquin for Stenotrophomonas. Continue vancomycin Follow blood cultures. Continue Zosyn. Monitor sputum culture. Monitor progress Monitor temps
--- NOTE | 2018-03-17 18:30 | P.PNONC ---
Subjective Interval history: Resting in bed, intubated and sedated. at bedside. Objective Vital Signs/Intake & Output: Vital Signs 03/16/18 19:00 03/16/18 19:19 03/16/18 20:00 Temperature 98.2 F Pulse Rate 150 H 132 H Respiratory Rate 13 16 18 Blood Pressure Pulse Oximetry 100 100 100 03/16/18 21:00 03/16/18 21:37 03/16/18 22:00 Temperature Pulse Rate 126 H 122 H 110 H Respiratory Rate 13 16 16 Blood Pressure 128/84 Pulse Oximetry 100 100 100 03/16/18 23:00 03/16/18 23:14 03/17/18 00:00 Temperature 99 F Pulse Rate 118 H 110 H 106 H Respiratory Rate 19 16 16 Blood Pressure Pulse Oximetry 99 99 100 03/17/18 01:00 03/17/18 02:00 03/17/18 02:27 Temperature Pulse Rate 93 H 97 H 118 H Respiratory Rate 16 19 26 H Blood Pressure 121/74 Pulse Oximetry 99 98 82 L 03/17/18 02:30 03/17/18 03:00 03/17/18 03:30 Temperature Pulse Rate 111 H 93 H 91 H Respiratory Rate 21 16 16 Blood Pressure 132/70 108/61 108/67 Pulse Oximetry 99 99 99 03/17/18 04:00 03/17/18 04:30 03/17/18 04:36 Temperature Pulse Rate 107 H 108 H 116 H Respiratory Rate 17 16 16 Blood Pressure 115/70 110/75 Pulse Oximetry 100 100 100 03/17/18 05:00 03/17/18 05:30 03/17/18 06:00 Temperature Pulse Rate 106 H 106 H 108 H Respiratory Rate 16 16 16 Blood Pressure 105/65 101/64 141/88 H Pulse Oximetry 100 100 100 03/17/18 06:44 03/17/18 07:00 03/17/18 07:08 Temperature Pulse Rate 111 H 144 H 140 H Respiratory Rate 17 35 H 26 H Blood Pressure 131/80 135/79 Pulse Oximetry 100 78 L 95 03/17/18 07:30 03/17/18 07:55 03/17/18 07:56 Temperature Pulse Rate 101 H 114 H Respiratory Rate 18 26 H 16 Blood Pressure 133/78 Pulse Oximetry 100 03/17/18 08:00 03/17/18 08:30 03/17/18 09:00 Temperature 98.5 F Pulse Rate 102 H 105 H 104 H Respiratory Rate 19 17 14 Blood Pressure 131/79 125/62 114/68 Pulse Oximetry 100 100 100 03/17/18 09:30 03/17/18 10:00 03/17/18 10:30 Temperature Pulse Rate 104 H 100 H 94 H Respiratory Rate 16 14 17 Blood Pressure 123/69 114/61 110/62 Pulse Oximetry 100 100 100 03/17/18 11:00 03/17/18 11:30 03/17/18 12:00 Temperature 98.7 F Pulse Rate 90 90 88 Respiratory Rate 16 15 17 Blood Pressure 107/64 110/66 112/68 Pulse Oximetry 100 100 100 03/17/18 12:29 03/17/18 12:30 03/17/18 15:42 Temperature Pulse Rate 89 89 120 H Respiratory Rate 16 19 22 Blood Pressure 115/68 Pulse Oximetry 100 03/17/18 15:43 03/17/18 16:00 Temperature Pulse Rate 122 H Respiratory Rate 24 17 Blood Pressure 139/78 Pulse Oximetry 100 100 Intake & Output 03/16/18 03/17/18 03/17/18 18:59 06:59 18:59 Intake Total 1692 / 1692 348 / 348 1464 / 1464 Output Total 975 / 975 2300 / 2300 Balance 717 / 717 -1952 / -195 1464 / 1464 Intake: IV 1250 / 1250 48 / 48 1464 / 1464 Precedex Inj 200 MCG In NS Inj 48 / 48 100 / 100 48 ML @ 0.2 MCG/KG/HR 3.53 mls/ hr IV.CONT TITRATE PRN Rx#: [id number] D5W/Normal Saline Inj 1,000 ML 1000 / 1000 1000 / 1000 @ 84 mls/hr IV.CONT .[id number] [facility] Rx#:[id number] Levaquin 750 mg Premix Inj 150 150 / 150 ML @ 100 mls/hr IV.SIG Q24H [facility] Rx#:[id number] Magnesium Sulfate Inj 2 GM In 100 / 100 NS Inj 96 ML @ 52 mls/hr IV.SIG UNSCH PRN Rx#:[id number] KCl 20 mEq Premix Inj 20 meq In 100 / 100 100 ml @ 50 mls/hr IV.SIG Q2H PRN Rx#:[id number] Potassium Phosphate Inj 30 MMOL 264 / 264 In NS Inj 250 ML @ 42 mls/hr IV.SIG UNSCH PRN Rx#:[id number] Tube Feeding 322 / 322 200 / 200 Tube Irrigant 60 / 60 Water Bolus Amount 60 / 60 100 / 100 Output: Urine Amount (Catheter) 975 / 975 2300 / 2300 Indwelling Temp Sensing 2300 / 2300 Catheter Indwelling Urethral Catheter 975 / 975 Other: Date of Last Bowel Movement 03/16/18 03/17/18 03/17/18 # Bowel Movements 1 Weight On Admission 72.8 kg Result Diagrams: 03/20/18 04:00 03/20/18 04:00 Laboratory Results: Laboratory Results - last 24 hr 03/16/18 03/17/18 03/17/18 18:43 03:20 03:20 WBC 2.4 L RBC 2.18 L Hgb 6.7 L* Hct 19.8 L* MCV 91.0 MCH 30.9 MCHC 33.9 RDW 16.2 Plt Count 148 L MPV 8.1 Prelim Diff (Auto) Slide review pending Neut % (Auto) 58.0 Lymph % (Auto) 30.6 [place] % (Auto) 10.5 H Eos % (Auto) 0.6 Baso % (Auto) 0.3 Neut # (Auto) 1.4 L Lymph # (Auto) 0.7 L [place] # (Auto) 0.3 Eos # (Auto) 0.0 Baso # (Auto) 0.0 WBC Differential Manual diff final Seg Neuts % (Manual) 68 Band Neuts % (Manual) 10 H Lymphocytes % (Manual) 12 Monocytes % (Manual) 8 Metamyelocytes % (Man) 2 H Abs Neuts (Manual) 1.9 Nucleated RBCs/100 WBC 2 H Differential Comment . Platelet Estimate Low L Platelet Morphology Normal Ovalocytes 1+ H Sodium Potassium Chloride Carbon Dioxide Anion Gap BUN Creatinine Estimated GFR POC Glucose 100 Random Glucose Calcium Prot Corrected Calcium Phosphorus Magnesium Total Bilirubin AST ALT Alkaline Phosphatase Ammonia 32 Total Protein Albumin 03/17/18 03/17/18 03/17/18 03:20 04:15 13:26 WBC 3.2 L RBC 2.33 L Hgb 7.1 L 7.0 L Hct 21.1 L 21.3 L MCV 90.7 MCH 30.7 MCHC 33.8 RDW 16.3 Plt Count 146 L MPV 8.0 Prelim Diff (Auto) Neut % (Auto) Lymph % (Auto) [place] % (Auto) Eos % (Auto) Baso % (Auto) Neut # (Auto) Lymph # (Auto) [place] # (Auto) Eos # (Auto) Baso # (Auto) WBC Differential Seg Neuts % (Manual) Band Neuts % (Manual) Lymphocytes % (Manual) Monocytes % (Manual) Metamyelocytes % (Man) Abs Neuts (Manual) Nucleated RBCs/100 WBC Differential Comment Platelet Estimate Platelet Morphology Ovalocytes Sodium 141 Potassium 3.2 L Chloride 109 H Carbon Dioxide 25.0 Anion Gap 7 BUN 5 L Creatinine Less than 0.15 L Estimated GFR Greater than 89 POC Glucose Random Glucose 108 H Calcium 6.8 L* Prot Corrected Calcium 8.2 L D Phosphorus 2.1 L Magnesium 1.4 L Total Bilirubin 0.3 AST 23 ALT 13 Alkaline Phosphatase 179 H Ammonia Total Protein 4.5 L Albumin 1.1 L Culture Results: Microbiology 03/16/18 15:28 Urine Culture - Preliminary Catheterized Urine No growth in 24 hours 03/16/18 19:40 Aerobic Blood Culture - Preliminary Blood - Line No growth in 1 day Anaerobic Blood Culture - Preliminary No growth in 1 day 03/16/18 19:45 Aerobic Blood Culture - Preliminary Blood - Line No growth in 1 day Anaerobic Blood Culture - Preliminary No growth in 1 day 03/12/18 00:46 Aerobic Blood Culture - Final Blood - Peripheral No growth in 5 days Anaerobic Blood Culture - Final No growth in 5 days 03/12/18 00:40 Aerobic Blood Culture - Final Blood - Peripheral No growth in 5 days Anaerobic Blood Culture - Final No growth in 5 days 03/15/18 04:50 Gram Stain - Final Sputum - Endotracheal Sputum Culture - Preliminary gram negative rods 03/15/18 23:15 Stool Occult Blood (ABEBE) - Final Stool Hemoccult negative Imaging Studies: Impressions Head MRI 03/16/18 00:00 CONCLUSION: 1. There is a new area of nodular enhancement, abnormal FLAIR signal, and mild restricted diffusion at the baeza matter white matter junction in the left occipital lobe. 3 additional small areas of nodular enhancement measuring approximately 3 mm are also identified along the baeza matter surface in the left parietal high convexity. Etiology is nonspecific. Metastatic disease is one consideration but given the history infection is another consideration. Suggest attention to these areas at follow-up imaging. 2. Increased fluid in the mastoid air cells bilaterally. Chest X-Ray 03/17/18 06:00 CONCLUSION: Better aeration of the lungs with bibasilar densities and small pleural effusions. Medications: Active Medications Generic Name Dose Route Start Last Admin Trade Name Freq PRN Reason Stop Dose Admin Acetaminophen 650 mg 03/05/18 00:01 03/16/18 11:23 Tylenol PO 650 mg Q6H PRN Administration PAIN 1-5 AND/OR FEVER > 101F Albuterol 1 ampul 03/16/18 12:00 03/17/18 15:41 Duoneb Neb ([facility]) NEB 1 ampul Q4HR NEB [facility] Administration Artificial Tears 1 drops 03/16/18 11:00 03/17/18 15:21 Genteal Severe Dry Eye Relief 0.3% Opth Gel EACH EYE 1 drops Q8H [facility] Administration Chlorhexidine Gluconate 15 ml 03/12/18 08:00 03/17/18 09:31 Peridex 0.12% Oral Kit OROPHARYNG 15 ml BID@0800,2000 [facility] Administration Collagenase 1 applicatio 03/09/18 15:00 03/17/18 15:29 Santyl Oint TOPICAL 1 applicatio Q24H [facility] Administration Cyclobenzaprine HCl 5 mg 03/05/18 09:00 03/17/18 15:28 Flexeril PO 5 mg TID [facility] Administration Gabapentin 600 mg 03/05/18 09:00 03/17/18 15:27 Neurontin PO 600 mg TID [facility] Administration Potassium Chloride 20 meq in 100 mls @ 50 mls/hr 03/07/18 06:54 03/11/18 06: 54 Kcl 20 Meq Premix Inj IV.SIG 25 mls/hr Q2H PRN Administration For Potassium 3.3 - 3.5 mEq/L Potassium Phosphate 30 mmol/ 260 mls @ 42 mls/hr 03/07/18 06:54 03/07/18 17: 07 Sodium Chloride IV.SIG 42 mls/hr UNSCH PRN Infusion SEE LABEL COMMENTS Vancomycin HCl 1,000 mg/ 250 mls @ 250 mls/hr 03/11/18 18:00 03/17/18 09:32 Sodium Chloride IV.SIG Not Given Q12H [facility] Dextrose/Sodium Chloride 1,000 mls @ 84 mls/hr 03/12/18 17:45 07/13/18 15:20 D5w/Normal Saline Inj IV.CONT Not Given .[id number] [facility] Levofloxacin/Dextrose 150 mls @ 100 mls/hr 03/14/18 14:00 03/17/18 15:28 Levaquin 750 Mg Premix Inj IV.SIG 100 mls/hr Q24H [facility] Administration Dexmedetomidine HCl 200 mcg/ 50 mls @ 3.53 mls/hr 03/16/18 20:55 03/17/18 17: 44 Sodium Chloride IV.CONT 0.6 mcg/kg/hr TITRATE PRN 10.59 mls/hr Per Protocol Administration Protocol 0.2 MCG/KG/HR Insulin Human Regular 0 units 03/13/18 18:00 03/17/18 12:45 Novolin R Supplemental Scale SQ Not Given Q6HR [facility] Protocol Lansoprazole 30 mg 03/17/18 09:00 03/17/18 09:30 Prevacid Solutab NG/OG 30 mg DAILY [facility] Administration Levothyroxine Sodium 50 mcg 03/05/18 06:00 03/17/18 09:32 Synthroid PO Not Given DAILY@0600 [facility] Magnesium Oxide 800 mg 03/05/18 00:01 03/14/18 05:37 Mag-Ox PO 800 mg UNSCH PRN Administration For Magnesium 1.2 - 1.6 mg/dL Metoprolol Tartrate 2.5 mg 03/15/18 10:01 03/16/18 19:01 Lopressor Inj IV.PUSH 2.5 mg Q6H PRN Administration RAPID HEART RATE Ondansetron HCl 4 mg 03/05/18 00:01 03/13/18 05:49 Zofran Odt PO 4 mg Q6H PRN Administration NAUSEA OR VOMITING Oxybutynin Chloride 5 mg 03/05/18 06:00 03/17/18 15:27 Ditropan PO 5 mg Q8HR [facility] Administration Pravastatin Sodium 20 mg 03/05/18 09:00 03/17/18 09:30 Pravachol PO 20 mg DAILY [facility] Administration Sodium Chloride 0 ml 03/05/18 09:00 03/17/18 09:31 Ns Flush IV.FLUSH 2 ml DAILY [facility] Administration Protocol Tramadol HCl 50 mg 03/05/18 00:00 03/10/18 03:17 Ultram PO 50 mg Q8H PRN Administration PAIN 6-10 Objective Remarks: GENERAL: thin, chronically ill appearing lady SKIN: Warm and dry. HEAD: Normocephalic. EYES: No injection or drainage. RESPIRATORY: intubated and sedate EXTREMITIES: edema. MUSCULOSKELETAL: Adequate muscle tone. NEUROLOGICAL: No obvious focal deficit. Awake, alert, and oriented x3. PSYCHIATRIC: Appropriate mood and affect; insight and judgment normal. Assessment/Plan (1) Pancytopenia Code(s): D61.818 - Other pancytopenia Status: Acute (2) Bacteremia Code(s): R78.81 - Bacteremia Status: Acute - Plan 1. Acute thrombocytopenia: secondary to sepsis, critical illness, antibiotics. 2. Anemia: inflammatory anemia. 3. Ecoli sepsis: Management per infectious disease.
[2018-03-18] MEDS: Dexmedetomidine Inj 200 MCG in Sodium Chlor 0.9% Inj 48 ML IV.CONT PRN ×8 (01:44→23:21)
[2018-03-18 05:07] LABS: Baso % (Auto) 0.2 % (0.0-2.0); Eos % (Auto) 0.3 % (0.0-4.0); Lymph # (Auto) 0.9 th/mm3 (1.0-4.8); Mean Corpuscular HGB Conc 33.2 % (32.0-36.0); Mean Corpuscular Hemoglobin 30.5 pg (27.0-34.0); Mean Corpuscular Volume 92.1 fL (80.0-100.0); Mean Platelet Volume 7.9 fL (7.0-11.0); Mono # (Auto) 0.3 th/mm3 (0.0-0.9); Mono % (Auto) 10.9 % (0.0-8.0); Neut # (Auto) 1.6 th/mm3 (1.8-7.7); Neut % (Auto) 56.6 % (16.0-70.0); Platelet Count 138 th/mm3 (150-450); Red Cell Distribution Width 16.9 % (11.6-17.2); White Blood Count 2.8 th/mm3 (4.0-11.0)
[2018-03-18 05:18] LABS: Hematocrit 20.2 % (35.0-46.0); Hemoglobin 6.7 gm/dL (11.6-15.3)
[2018-03-18 05:24] LABS: Alanine Aminotransferase 13 U/L (10-53); Alkaline Phosphatase 176 U/L (45-117); Anion Gap 10 meq/L (5-15); Aspartate Aminotransferase 21 U/L (15-37); Blood Urea Nitrogen 5 mg/dL (7-18); Carbon Dioxide 22.8 meq/L (21.0-32.0); Chloride 110 meq/L (98-107); Glomerular Filtration Rate Greater Than 89 mL/min (>89); Glucose,Random 144 mg/dL (74-106); Magnesium 1.8 mg/dL (1.5-2.5); Potassium 3.6 meq/L (3.5-5.1); Sodium 143 meq/L (136-145); Total Protein 4.5 g/dL (6.4-8.2)
[2018-03-18] MEDS: Levothyroxine 50 MCG Tablet PO SCH (06:10)
[2018-03-18] MEDS: Vancomycin Inj 1,000 MG in Sodium Chlor 0.9% Inj 250 ML IV.SIG SCH ×3 (06:11→17:01)
[2018-03-18] MEDS: Gabapentin 300 MG Capsule PO SCH ×4 (10:50→17:01)
[2018-03-18] MEDS: Chlorhexidine 0.12% Oral Kit 15 ML UDC OROPHARYNG SCH (10:51)
[2018-03-18] MEDS ORDERED: Magnesium Sulfate Inj 2 GM in Sodium Chlor 0.9% Inj 96 ML IV.SIG ONE ×2 (10:51→16:08)
[2018-03-18] MEDS ORDERED: Potassium Chloride 20 MEQ Pwd Pkt NG/OG ONE ×2 (10:51→16:08)
[2018-03-18] MEDS: Hypromellose 0.3% Opth Gel 10 GM Bottle EACH EYE SCH ×3 (10:55→18:35)
[2018-03-18] MEDS: Oral Hygiene Kit OROPHARYNG SCH ×3 (10:55→17:00)
[2018-03-18] MEDS: Insulin NovoLIN Regular Correctional Sugar Inj SQ SCH ×5 (10:55→18:34)
[2018-03-18] MEDS: Dextrose 5%/NaCl 0.9% Inj 1,000 ML IV.CONT SCH ×3 (11:25→22:46)
[2018-03-18] MEDS: Propofol 1000 mg/100 ml Inj 1,000 MG/100 ML BOTTLE IV.CONT PRN ×2 (12:11→20:08)
--- NOTE | 2018-03-18 12:27 | P.PNONC ---
Subjective Interval history: Afebrile Patient remains intubated Status post 1 unit packed red blood cells this morning for hemoglobin of 6.7 Objective Vital Signs/Intake & Output: Vital Signs 03/17/18 12:29 03/17/18 12:30 03/17/18 15:42 Temperature Pulse Rate 89 89 120 H Respiratory Rate 16 19 22 Blood Pressure 115/68 Pulse Oximetry 100 03/17/18 15:43 03/17/18 16:00 03/17/18 17:00 Temperature Pulse Rate 122 H 110 H Respiratory Rate 24 17 17 Blood Pressure 139/78 133/76 Pulse Oximetry 100 100 100 03/17/18 17:30 03/17/18 18:00 03/17/18 18:30 Temperature Pulse Rate 110 H 108 H 108 H Respiratory Rate 17 16 17 Blood Pressure 126/79 128/82 132/78 Pulse Oximetry 100 100 100 03/17/18 19:00 03/17/18 19:30 03/17/18 19:57 Temperature Pulse Rate 102 H 99 H 102 H Respiratory Rate 16 16 16 Blood Pressure 109/76 111/64 Pulse Oximetry 100 100 100 03/17/18 20:00 03/17/18 20:30 03/17/18 21:00 Temperature 98.8 F Pulse Rate 102 H 103 H 101 H Respiratory Rate 16 16 16 Blood Pressure 106/76 134/75 129/76 Pulse Oximetry 100 100 100 03/17/18 21:30 03/17/18 22:00 03/17/18 22:30 Temperature Pulse Rate 103 H 102 H 99 H Respiratory Rate 16 16 16 Blood Pressure 123/75 127/73 133/75 Pulse Oximetry 100 100 100 03/17/18 23:00 03/17/18 23:30 03/17/18 23:48 Temperature Pulse Rate 104 H 108 H 102 H Respiratory Rate 16 18 16 Blood Pressure 132/73 125/86 Pulse Oximetry 100 100 03/18/18 00:00 03/18/18 00:30 03/18/18 01:00 Temperature Pulse Rate 104 H 105 H 103 H Respiratory Rate 16 16 16 Blood Pressure 133/75 132/76 131/72 Pulse Oximetry 100 100 100 03/18/18 01:17 03/18/18 01:30 03/18/18 02:00 Temperature Pulse Rate 103 H 101 H Respiratory Rate 16 16 16 Blood Pressure 131/70 130/75 Pulse Oximetry 100 100 100 03/18/18 02:30 03/18/18 03:00 03/18/18 03:30 Temperature Pulse Rate 112 H 102 H 102 H Respiratory Rate 16 16 16 Blood Pressure 129/75 128/75 131/74 Pulse Oximetry 100 100 100 03/18/18 03:39 03/18/18 04:00 03/18/18 04:24 Temperature Pulse Rate 102 H 115 H Respiratory Rate 17 18 20 Blood Pressure 126/76 Pulse Oximetry 100 100 03/18/18 04:30 03/18/18 05:00 03/18/18 07:48 Temperature Pulse Rate 104 H 107 H 103 H Respiratory Rate 16 17 18 Blood Pressure 123/69 128/79 123/7 L Pulse Oximetry 100 100 100 03/18/18 08:00 03/18/18 09:21 03/18/18 10:56 Temperature 98.7 F Pulse Rate 103 H 109 H Respiratory Rate 16 24 21 Blood Pressure 128/75 Pulse Oximetry 100 100 100 03/18/18 11:27 Temperature Pulse Rate 95 H Respiratory Rate 19 Blood Pressure Pulse Oximetry Intake & Output 03/17/18 03/18/18 03/18/18 18:59 06:59 18:59 Intake Total 2029 / 2029 566 / 566 400 / 400 Output Total 1200 / 1200 3300 / 3300 1850 / 1850 Balance 830 / 830 -2734 / -2734 -1450 / -1450 Weight 155 lb 10.342 oz Intake: IV 1614 / 1614 98 / 98 400 / 400 Precedex Inj 200 MCG In NS Inj 100 / 100 98 / 98 150 / 150 48 ML @ 0.2 MCG/KG/HR 3.53 mls/ hr IV.CONT TITRATE PRN Rx#: [id number] D5W/Normal Saline Inj 1,000 ML 1000 / 1000 @ 84 mls/hr IV.CONT .[id number] BRIAN Rx#:[id number] Levaquin 750 mg Premix Inj 150 150 / 150 ML @ 100 mls/hr IV.SIG Q24H BRIAN Rx#:[id number] Magnesium Sulfate Inj 2 GM In 100 / 100 NS Inj 96 ML @ 52 mls/hr IV.SIG UNSCH PRN Rx#:[id number] Potassium Phosphate Inj 30 MMOL 264 / 264 In NS Inj 250 ML @ 42 mls/hr IV.SIG UNSCH PRN Rx#:[id number] Vancomycin Inj 1,000 MG In NS 250 / 250 Inj 250 ML @ 250 mls/hr IV.SIG Q12H [facility] Rx#:[id number] Oral 0 / 0 0 / 0 Tube Feeding 296 / 296 348 / 348 Tube Irrigant 0 / 0 0 / 0 Water Bolus Amount 120 / 120 120 / 120 Intake (Blood Product) Amt 0 / 0 Rbc As-3 Leukoreduced Unit 0 / 0 [id number] Output: Urine 1200 / 1200 1200 / 1200 1850 / 1850 Stool 0 / 0 0 / 0 Urine/Stool Mix 0 / 0 0 / 0 Urine Amount (Catheter) 2099 Indwelling Urethral Catheter 2099 Other: Date of Last Bowel Movement 03/17/18 03/17/18 03/17/18 # Emeses 1 1 # Oral Regurgitations 1 1 Result Diagrams: 03/18/18 14:15 03/18/18 04:30 Laboratory Results: Laboratory Results - last 24 hr 03/17/18 03/17/18 03/18/18 13:26 21:50 00:26 WBC RBC Hgb 7.0 L Hct 21.3 L MCV MCH MCHC RDW Plt Count MPV Neut % (Auto) Lymph % (Auto) [place]dwell % (Auto) Eos % (Auto) Baso % (Auto) Neut # (Auto) Lymph # (Auto) [place]dwell # (Auto) Eos # (Auto) Baso # (Auto) WBC Differential Differential Comment Sodium Potassium 3.9 Chloride Carbon Dioxide Anion Gap BUN Creatinine Estimated GFR POC Glucose 160 H Random Glucose Calcium Prot Corrected Calcium Phosphorus Magnesium Total Bilirubin AST ALT Alkaline Phosphatase Total Protein Albumin Blood Type Antibody Screen MTS Gel Crossmatch Bld Prod Order Comment 03/18/18 03/18/18 03/18/18 04:30 04:30 05:35 WBC 2.8 L RBC 2.20 L Hgb 6.7 L* Hct 20.2 L* MCV 92.1 MCH 30.5 MCHC 33.2 RDW 16.9 Plt Count 138 L MPV 7.9 Neut % (Auto) 56.6 Lymph % (Auto) 32.0 [place]dwell % (Auto) 10.9 H Eos % (Auto) 0.3 Baso % (Auto) 0.2 Neut # (Auto) 1.6 L Lymph # (Auto) 0.9 L [place]dwell # (Auto) 0.3 Eos # (Auto) 0.0 Baso # (Auto) 0.0 WBC Differential . Differential Comment Auto diff final Sodium 143 Potassium 3.6 Chloride 110 H Carbon Dioxide 22.8 Anion Gap 10 BUN 5 L Creatinine Less than 0.15 L Estimated GFR Greater than 89 POC Glucose Random Glucose 144 H Calcium 7.0 L* Prot Corrected Calcium 8.4 L Phosphorus 3.0 Magnesium 1.8 Total Bilirubin 0.2 AST 21 ALT 13 Alkaline Phosphatase 176 H Total Protein 4.5 L Albumin 1.0 L Blood Type O Negative Antibody Screen Negative MTS Gel Crossmatch See Detail Bld Prod Order Comment Culture Results: Microbiology 03/16/18 15:28 Urine Culture - Final Catheterized Urine No growth in 48 hours 03/16/18 19:40 Aerobic Blood Culture - Preliminary Blood - Line No growth in 2 days Anaerobic Blood Culture - Preliminary No growth in 2 days 03/16/18 19:45 Aerobic Blood Culture - Preliminary Blood - Line No growth in 2 days Anaerobic Blood Culture - Preliminary No growth in 2 days 03/15/18 04:50 Gram Stain - Final Sputum - Endotracheal Sputum Culture - Final Stenotrophomonas maltophilia 03/12/18 00:46 Aerobic Blood Culture - Final Blood - Peripheral No growth in 5 days Anaerobic Blood Culture - Final No growth in 5 days 03/12/18 00:40 Aerobic Blood Culture - Final Blood - Peripheral No growth in 5 days Anaerobic Blood Culture - Final No growth in 5 days 03/15/18 23:15 Stool Occult Blood (ABEBE) - Final Stool Hemoccult negative Medications: Active Medications Generic Name Dose Route Start Last Admin Trade Name Freq PRN Reason Stop Dose Admin Acetaminophen 650 mg 03/05/18 00:01 03/16/18 11:23 Tylenol PO 650 mg Q6H PRN Administration PAIN 1-5 AND/OR FEVER > 101F Albuterol 1 ampul 03/16/18 12:00 03/18/18 11:25 Duoneb Neb (Brian) NEB 1 ampul Q4HR NEB BRIAN Administration Artificial Tears 1 drops 03/16/18 11:00 03/18/18 10:55 Genteal Severe Dry Eye Relief 0.3% Opth Gel EACH EYE Not Given Q8H BRIAN Chlorhexidine Gluconate 15 ml 03/12/18 08:00 03/18/18 10:51 Peridex 0.12% Oral Kit OROPHARYNG 15 ml BID@0800,1999 BRIAN Administration Collagenase 1 applicatio 03/09/18 15:00 03/17/18 15:29 Santyl Oint TOPICAL 1 applicatio Q24H BRIAN Administration Cyclobenzaprine HCl 5 mg 03/05/18 09:00 03/18/18 11:25 Flexeril PO 5 mg TID BRIAN Administration Gabapentin 600 mg 03/05/18 09:00 03/18/18 11:25 Neurontin PO 600 mg TID BRIAN Administration Potassium Chloride 20 meq in 100 mls @ 50 mls/hr 03/07/18 06:54 03/11/18 06: 54 Kcl 20 Meq Premix Inj IV.SIG 25 mls/hr Q2H PRN Administration For Potassium 3.3 - 3.5 mEq/L Potassium Phosphate 30 mmol/ 260 mls @ 42 mls/hr 03/07/18 06:54 03/07/18 17: 07 Sodium Chloride IV.SIG 42 mls/hr UNSCH PRN Infusion SEE LABEL COMMENTS Vancomycin HCl 1,000 mg/ 250 mls @ 250 mls/hr 03/11/18 18:00 03/18/18 10:54 Sodium Chloride IV.SIG Infused Q12H BRIAN Infusion Dextrose/Sodium Chloride 1,000 mls @ 84 mls/hr 03/12/18 17:45 03/18/18 11:25 D5w/Normal Saline Inj IV.CONT Not Given .[id number] BRIAN Levofloxacin/Dextrose 150 mls @ 100 mls/hr 03/14/18 14:00 03/17/18 16:58 Levaquin 750 Mg Premix Inj IV.SIG Infused Q24H BRIAN Infusion Dexmedetomidine HCl 200 mcg/ 50 mls @ 3.53 mls/hr 03/16/18 20:55 03/18/18 11: 27 Sodium Chloride IV.CONT 1.5 mcg/kg/hr TITRATE PRN 26.47 mls/hr Per Protocol Administration Protocol 0.2 MCG/KG/HR Propofol 1,000 mg in 100 mls @ 2.118 mls/hr 03/18/18 10:50 03/18/18 12:11 Diprivan 1000 Mg/100 Ml Inj IV.CONT 5 mcg/kg/min TITRATE PRN 2.12 mls/hr Per Protocol Administration Protocol 5 MCG/KG/MIN Insulin Human Regular 0 units 03/13/18 18:00 03/18/18 11:24 Novolin R Supplemental Scale SQ Not Given Q6HR [facility] Protocol Lansoprazole 30 mg 03/17/18 09:00 03/18/18 10:51 Prevacid Solutab NG/OG 30 mg DAILY BRIAN Administration Levothyroxine Sodium 50 mcg 03/05/18 06:00 03/18/18 06:10 Synthroid PO 50 mcg DAILY@0600 BRIAN Administration Magnesium Oxide 800 mg 03/05/18 00:01 03/14/18 05:37 Mag-Ox PO 800 mg UNSCH PRN Administration For Magnesium 1.2 - 1.6 mg/dL Metoprolol Tartrate 2.5 mg 03/15/18 10:01 03/16/18 19:01 Lopressor Inj IV.PUSH 2.5 mg Q6H PRN Administration RAPID HEART RATE Ondansetron HCl 4 mg 03/05/18 00:01 03/13/18 05:49 Zofran Odt PO 4 mg Q6H PRN Administration NAUSEA OR VOMITING Oxybutynin Chloride 5 mg 03/05/18 06:00 03/18/18 06:10 Ditropan PO 5 mg Q8HR BRIAN Administration Pravastatin Sodium 20 mg 03/05/18 09:00 03/18/18 10:50 Pravachol PO 20 mg DAILY BRIAN Administration Sodium Chloride 0 ml 03/05/18 09:00 03/18/18 10:51 Ns Flush IV.FLUSH 2 ml DAILY BRIAN Administration Protocol Tramadol HCl 50 mg 03/05/18 00:00 03/10/18 03:17 Ultram PO 50 mg Q8H PRN Administration PAIN 6-10 Objective Remarks: GENERAL: Older female resting in bed mechanically ventilated. She is awake but lethargic. SKIN: Warm and dry. HEAD: Normocephalic. EYES: No scleral icterus. No injection or drainage. NECK: Supple, trachea midline. No JVD or lymphadenopathy. CARDIOVASCULAR: Regular rate and rhythm without murmurs. RESPIRATORY: Mechanically ventilated. 35% FiO2. Scattered rhonchi GASTROINTESTINAL: Mildly protuberant abdomen. Soft palpation. EXTREMITIES: Anasarca. NEUROLOGICAL: Lethargic. Occasionally tracks. Assessment/Plan - Plan 1. Patient continues to have severe anemia. She received 1 unit packed red blood cells today for hemoglobin of 6.7. Questionable hemorrhage around the area of C7/T1. Hemoccult stool was negative. 2. Check coags today including fibrinogen. Thrombocytopenia stable. This is likely secondary to sepsis, critical illness and antibiotics. Continue to monitor. 3. Recent MRI of the head showed 3 small areas of nodular enhancement that may represent either metastatic disease or infection. Neurology following. - Attending Statement The exam, history, and the medical decision-making described in the above note were completed with the assistance of the mid-level provider. I reviewed and agree with the findings presented. I attest that I had a [id number] encounter with the patient on the same day, and personally performed and documented my assessment and findings in the medical record. Patient seen and examined. Critically ill. She is intubated sedated with anasarca. Cytopenias noted. There is improvement in platelet count since a week ago. Cytopenias presumably from sepsis. Fibrinogen has been stable. Required red cell transfusion. Mild neutropenia. Unable to rule out drug effect. Continue to monitor and support.
[2018-03-18] MEDS ORDERED: Calcium Chloride Inj 1 GM/10 ML Syringe IV.PUSH ONE (13:00)
[2018-03-18] MEDS: Collagenase Oint 30 GM Tube TOPICAL SCH (13:36)
[2018-03-18 14:05] LABS: Activated Partial Thrombo Time 28.5 sec (24.3-30.1); INR 1.2 Ratio; Prothrombin Time 11.8 sec (9.8-11.6)
[2018-03-18 14:50] LABS: Hematocrit 26.5 % (35.0-46.0); Hemoglobin 9.1 gm/dL (11.6-15.3)
--- NOTE | 2018-03-18 16:14 | P.PNCC ---
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 she was sent to [facility] for procedural management of these. She was then transferred to [facility] on 02/28. Please see the dictated hospitalist consult note on 02/28 on admission to [facility] for a detailed record of the hospital course while at [facility]. Today, she was found to be very tachycardic in the 160s and hypotensive with sbp in the 70s. She was emergently transferred to the ICU after rapid response was called for evaluation and management of her hypotension. Of note, she did not have iv access. I met her on arrival to the ICU. I placed 2 18g piv. 12-lead EKG confirms sinus tachycardia. I due to the fast rate, I gave 6mg adenosine to slow it down diagnostically, and it slowed down temporarily to a HR in the 70s, confirming sinus rhythm. I performed bedside critical care echocardiography which demonstrates grossly preserve biventricular function. in particular, RV is decompressed and well-functioning. IVC is completely collapsable. no pericardial effusion. I gave her 3L NS bolus ivf which improved her SBP to 110s and decreased her HR to 110s. She is afebrile. stat CBC shows anemia (history of recent femoral artery pseudoaneurysm), CMP demonstrates elevated AST and Alk phos, elevated lactate at 3.7. Cr elevated above baseline. Patient denies any complaints to me. she is mostly marshallese speaking, but communicates in basic Tajik. specifically denies chest pain, shortness of breath, fever/chills, nausea, vomiting, abdominal pain, constipation, diarrhea. I discussed with her family, she has been eating and drinking well even up to today. ROS otherwise negative. 03/02 Patient is awake lying in bed in TRAV. On room air oxygen. T:103.2 this morning She was hypotensive overnight initially placed on Neosyn now off pressor with BP 147/67 with MAP 96. 03/03 No events overnight. Seems more awake and alert this morning. T: 100.2 at midnight. BP and HR better ( 119/58 with MAP 83mmHg). On no pressors. BC from 03/01: E.coli ESBL 6/30: clinically improving. slightly tachycardic. on appropriate therapy for her ESBL e. coli. denies complaints. hemodynamically stable. on room air. 03/05: Patient developed worsening respiratory distress yesterday and required endotracheal intubation and was placed on mechanical ventilation. Hypotension overnight for which patient was started on phenylephrine. Developed A. fib with RVR and was started on amiodarone gtt. 03/06 Patient remains sedated and intubated. Tmax 101.6, On Amio drip. 03/07 Patient remains intubated off sedation. s/p transfusion 2u PRBC yesterday. Tolerating tube feeds. Afebrile. Off Amio drip. 03/08 Patient remains intubated. T:100.9 last night. 03/09 No events overnight. Tolerated CPAP for approx 4 hrs yesterday. Off sedation. Afebrile. 03/10 No events overnight T:100.1 at 4am, Awake, patient was on CPAP for short time yesterday and placed back on PRVC mode for low TV and tachycardia. 03/11 No events overnight. Tolerated CPAP x 4hrs yesterday. T:100.6 yesterday. On no sedation. 03/12 Patient was extubated yesterday reintubated last night for resp distress and AMS. Afebrile. On Diprivan infusion for sedation. 03/13: Remains intubated critical, remains encephalopathy unresponsive off sedation. Afebrile EEG showed significant encephalopathy no seizures. Right subclavian central line placed, remains on Luis-Synephrine to keep map above 65 03/14: Remains encephalopathy again unresponsive. Eyes are open but no tracking did not follow commands. Remains leukopenic. Weaned off Luis-Synephrine. Not tolerating CPAP due to low tidal volume 03/15: Continues to fail CPAP due to low tidal volume. IV Levaquin added yesterday by ID for stenotrophomonas in the sputum. Remains encephalopathic did not follow commands but eyes are spontaneously open. I have requested neurology consult today 03/16: T-max 100.1. Currently 99. EEG has been performed. Does not follow commands. Tube feeds at 30 cc an hour. Positive BM. 03/17 Patient remains intubated on Precedex drip but awake. Subjective 03/18 T-current 100.7. Tolerating tube feeds at goal. Arousable the ventilator and follows command. Left side is chronically weaker. Discussed with Dr. Rodriguez. Reviewed MRI brain. Recommended evaluation by neurosurgery for abnormal MRI C-spine. Patient's CT surgeon at [facility] is Dr. Ku [phone] Objective Vital Signs / I&O: Vital Signs 03/17/18 17:00 03/17/18 17:30 03/17/18 18:00 Temperature Pulse Rate 110 H 110 H 108 H Respiratory Rate 17 17 16 Blood Pressure 133/76 126/79 128/82 Pulse Oximetry 100 100 100 03/17/18 18:30 03/17/18 19:00 03/17/18 19:30 Temperature Pulse Rate 108 H 102 H 99 H Respiratory Rate 17 16 16 Blood Pressure 132/78 109/76 111/64 Pulse Oximetry 100 100 100 03/17/18 19:57 03/17/18 20:00 03/17/18 20:30 Temperature 98.8 F Pulse Rate 102 H 102 H 103 H Respiratory Rate 16 16 16 Blood Pressure 106/76 134/75 Pulse Oximetry 100 100 100 03/17/18 21:00 03/17/18 21:30 03/17/18 22:00 Temperature Pulse Rate 101 H 103 H 102 H Respiratory Rate 16 16 16 Blood Pressure 129/76 123/75 127/73 Pulse Oximetry 100 100 100 03/17/18 22:30 03/17/18 23:00 03/17/18 23:30 Temperature Pulse Rate 99 H 104 H 108 H Respiratory Rate 16 16 18 Blood Pressure 133/75 132/73 125/86 Pulse Oximetry 100 100 100 03/17/18 23:48 03/18/18 00:00 03/18/18 00:30 Temperature Pulse Rate 102 H 104 H 105 H Respiratory Rate 16 16 16 Blood Pressure 133/75 132/76 Pulse Oximetry 100 100 03/18/18 01:00 03/18/18 01:17 03/18/18 01:30 Temperature Pulse Rate 103 H 103 H Respiratory Rate 16 16 16 Blood Pressure 131/72 131/70 Pulse Oximetry 100 100 100 03/18/18 02:00 03/18/18 02:30 03/18/18 03:00 Temperature Pulse Rate 101 H 112 H 102 H Respiratory Rate 16 16 16 Blood Pressure 130/75 129/75 128/75 Pulse Oximetry 100 100 100 03/18/18 03:30 03/18/18 03:39 03/18/18 04:00 Temperature Pulse Rate 102 H 102 H 115 H Respiratory Rate 16 17 18 Blood Pressure 131/74 126/76 Pulse Oximetry 100 100 03/18/18 04:24 03/18/18 04:30 03/18/18 05:00 Temperature Pulse Rate 104 H 107 H Respiratory Rate 20 16 17 Blood Pressure 123/69 128/79 Pulse Oximetry 100 100 100 03/18/18 07:48 03/18/18 08:00 03/18/18 08:04 Temperature 98.7 F 98.7 F Pulse Rate 103 H 103 H 103 H Respiratory Rate 18 16 17 Blood Pressure 123/7 L 128/75 128/75 Pulse Oximetry 100 100 03/18/18 09:21 03/18/18 10:30 03/18/18 10:56 Temperature 98.8 F Pulse Rate 109 H 101 H Respiratory Rate 24 20 21 Blood Pressure 145/92 H Pulse Oximetry 100 100 03/18/18 11:27 03/18/18 12:00 03/18/18 12:30 Temperature 98.8 F Pulse Rate 95 H 121 H 125 H Respiratory Rate 19 21 23 Blood Pressure 147/87 H 147/78 H Pulse Oximetry 100 95 03/18/18 13:00 03/18/18 13:01 03/18/18 13:30 Temperature Pulse Rate 105 H 104 H Respiratory Rate 16 16 16 Blood Pressure 140/80 139/82 Pulse Oximetry 100 100 100 03/18/18 14:00 03/18/18 14:30 03/18/18 14:54 Temperature Pulse Rate 100 H 101 H 108 H Respiratory Rate 16 16 17 Blood Pressure 153/83 H 144/86 H Pulse Oximetry 100 100 03/18/18 15:00 03/18/18 15:30 03/18/18 16:00 Temperature 100.7 F H Pulse Rate 103 H 109 H 109 H Respiratory Rate 16 16 16 Blood Pressure 144/86 H 143/80 H 134/75 Pulse Oximetry 100 100 100 Intake & Output 03/17/18 03/18/18 03/18/18 18:59 06:59 18:59 Intake Total 2029 / 2029 566 / 566 1852 / 1852 Output Total 1200 / 1200 3300 / 3300 1850 / 1850 Balance 830 / 830 -2734 / -2734 2 / 2 Weight 70.6 kg Intake: IV 1614 / 1614 98 / 98 1452 / 1452 Precedex Inj 200 MCG In NS Inj 100 / 100 98 / 98 202 / 202 48 ML @ 0.2 MCG/KG/HR 3.53 mls/ hr IV.CONT TITRATE PRN Rx#: [id number] D5W/Normal Saline Inj 1,000 ML 1000 / 1000 1000 / 1000 @ 84 mls/hr IV.CONT .[id number] [facility] Rx#:[id number] Levaquin 750 mg Premix Inj 150 150 / 150 ML @ 100 mls/hr IV.SIG Q24H [facility] Rx#:[id number] Magnesium Sulfate Inj 2 GM In 100 / 100 NS Inj 96 ML @ 52 mls/hr IV.SIG UNSCH PRN Rx#:[id number] Potassium Phosphate Inj 30 MMOL 264 / 264 In NS Inj 250 ML @ 42 mls/hr IV.SIG UNSCH PRN Rx#:[id number] Vancomycin Inj 1,000 MG In NS 250 / 250 Inj 250 ML @ 250 mls/hr IV.SIG Q12H [facility] Rx#:[id number] Oral 0 / 0 0 / 0 Tube Feeding 296 / 296 348 / 348 Tube Irrigant 0 / 0 0 / 0 Water Bolus Amount 120 / 120 120 / 120 Intake (Blood Product) Amt 400 / 400 Rbc As-3 Leukoreduced Unit 400 / 400 [id number] Output: Urine 1200 / 1200 1200 / 1200 1850 / 1850 Stool 0 / 0 0 / 0 Urine/Stool Mix 0 / 0 0 / 0 Urine Amount (Catheter) 2099 Indwelling Urethral Catheter 2099 Other: Date of Last Bowel Movement 03/17/18 03/17/18 03/17/18 # Emeses 1 1 # Oral Regurgitations 1 1 Result Diagrams: 03/18/18 14:15 03/18/18 04:30 Other Results: Microbiology 03/16/18 15:28 Catheterized Urine Urine Culture - Final No growth in 48 hours 03/16/18 19:40 Blood - Line Aerobic Blood Culture - Preliminary No growth in 2 days 03/16/18 19:40 Blood - Line Anaerobic Blood Culture - Preliminary No growth in 2 days 03/16/18 19:45 Blood - Line Aerobic Blood Culture - Preliminary No growth in 2 days 03/16/18 19:45 Blood - Line Anaerobic Blood Culture - Preliminary No growth in 2 days 03/15/18 04:50 Sputum - Endotracheal Gram Stain - Final 03/15/18 04:50 Sputum - Endotracheal Sputum Culture - Final Stenotrophomonas maltophilia 03/12/18 00:46 Blood - Peripheral Aerobic Blood Culture - Final No growth in 5 days 03/12/18 00:46 Blood - Peripheral Anaerobic Blood Culture - Final No growth in 5 days 03/12/18 00:40 Blood - Peripheral Aerobic Blood Culture - Final No growth in 5 days 03/12/18 00:40 Blood - Peripheral Anaerobic Blood Culture - Final No growth in 5 days 03/15/18 23:15 Stool Stool Occult Blood (ABEBE) - Final Hemoccult negative 03/11/18 22:30 Sputum - Endotracheal Gram Stain - Final 03/11/18 22:30 Sputum - Endotracheal Sputum Culture - Final Stenotrophomonas maltophilia 03/09/18 19:21 Blood - Peripheral Aerobic Blood Culture - Final No growth in 5 days 03/09/18 19:21 Blood - Peripheral Anaerobic Blood Culture - Final No growth in 5 days 03/09/18 19:28 Blood - Peripheral Aerobic Blood Culture - Final No growth in 5 days 03/09/18 19:28 Blood - Peripheral Anaerobic Blood Culture - Final No growth in 5 days 03/08/18 11:00 Blood - Peripheral Aerobic Blood Culture - Final No growth in 5 days 03/08/18 11:00 Blood - Peripheral Anaerobic Blood Culture - Final No growth in 5 days 03/08/18 11:09 Blood - Peripheral Aerobic Blood Culture - Final No growth in 5 days 03/08/18 11:09 Blood - Peripheral Anaerobic Blood Culture - Final No growth in 5 days 03/09/18 16:45 Sputum - Endotracheal Gram Stain - Final 03/09/18 16:45 Sputum - Endotracheal Sputum Culture - Final Heavy growth normal respiratory ramesh 03/06/18 05:12 Blood - Peripheral Aerobic Blood Culture - Final Staphylococcus coag negative 03/06/18 05:12 Blood - Peripheral Anaerobic Blood Culture - Final Staphylococcus epidermidis 03/05/18 15:33 Blood - Peripheral Aerobic Blood Culture - Final No growth in 5 days 03/05/18 15:33 Blood - Peripheral Anaerobic Blood Culture - Final Escherichia coli ESBL positive 03/08/18 17:55 Catheterized Urine Urine Culture - Final No growth in 48 hours 03/07/18 16:00 Sputum - Endotracheal Gram Stain - Final 03/07/18 16:00 Sputum - Endotracheal Sputum Culture - Final Heavy growth normal respiratory ramesh 03/05/18 12:55 Blood - Peripheral Aerobic Blood Culture - Final Escherichia coli ESBL positive 03/05/18 12:55 Blood - Peripheral Anaerobic Blood Culture - Final Escherichia coli ESBL positive Imaging: Chest X-Ray 03/07/18 00:00 CONCLUSION: 1. Persistent left lower lobe consolidation and pleural effusion. 2. Interval resolution of diffuse infiltrates in the right lung and reduction in the infiltrates in the left upper lung. Chest X-Ray 03/09/18 08:51 CONCLUSION: 1. Interval removal of left subclavian central line. 2. Stable small left pleural effusion and associated airspace disease in the left lower lobe. 3. Continued improving aeration of the left upper lung zone. 4. Stable mild airspace disease in the right lower lung zone. Chest X-Ray 03/11/18 21:53 CONCLUSION: Basilar airspace disease and pleural effusions similar to March 09. Endotracheal tube tip just above raz. Head CT 03/12/18 06:59 CONCLUSION: 1. No acute intracranial abnormality. 2. Minimal fluid in the mastoid air cells. Chest X-Ray 03/12/18 21:40 CONCLUSION: Placement of a right central line with tip in right atrium. No pneumothorax. Chest X-Ray 03/14/18 06:00 CONCLUSION: 1. No significant interval change. 2. Stable tubes and lines. 3. Stable small bilateral pleural effusions and associated lower lung zone airspace disease. Chest X-Ray 03/15/18 06:00 CONCLUSION: 1. No significant interval change. 2. Stable tubes and lines. 3. Stable bilateral [id number] pleural effusions with associated lower lobe airspace disease. Cervical Spine MRI 03/16/18 00:00 CONCLUSION: 1. Persistent abnormal signal in the cord extending from C4 down to T1. Much of this likely related to edema. The edema appears to extend over a smaller area on the current exam. There is a linear area of increased signal seen on the T1 and T2-weighted images at the left-sided cord at the C7-T1 level which may represent an area of focal hemorrhage within the cord. 2. Status post laminectomy with posterior fusion and hardware placed at the C4- T1 levels. 3. Prevertebral soft tissue swelling. 4. No focal fluid collection to suggest an abscess is seen. Head MRI 03/16/18 00:00 CONCLUSION: 1. There is a new area of nodular enhancement, abnormal FLAIR signal, and mild restricted diffusion at the baeza matter white matter junction in the left occipital lobe. 3 additional small areas of nodular enhancement measuring approximately 3 mm are also identified along the baeza matter surface in the left parietal high convexity. Etiology is nonspecific. Metastatic disease is one consideration but given the history infection is another consideration. Suggest attention to these areas at follow-up imaging. 2. Increased fluid in the mastoid air cells bilaterally. Chest X-Ray 03/17/18 06:00 CONCLUSION: Better aeration of the lungs with bibasilar densities and small pleural effusions. Objective Remarks: GENERAL: Patient is 62 yo female patient intubated and off sedation SKIN: Warm and dry. No rash. Sacral DTI HEAD: Normocephalic. EYES: No scleral icterus. No injection or drainage. NECK: Supple, trachea midline. No JVD or lymphadenopathy. CARDIOVASCULAR: Tachycardic, RR. S1, S2. No S4. Without murmurs, gallops, or rubs. RESPIRATORY: Breath sounds equal bilaterally. No accessory muscle use. Diminished in the bases bilaterally. GASTROINTESTINAL: Abdomen soft, non-tender, nondistended. Hypoactive bowel sounds appreciated. MUSCULOSKELETAL: Trace bilateral lower extremity edema. NEURO: Intubated, awake. Strength 5 out of 5 right upper lower extent. 3-4-5 left upper lower extremity. Follows commands. Nods head appropriately questions Assessment and Plan - Assessment and Plan Plan: Neuro/Psych: History of C6 vertebral aneurysm and underwent a C4 through T1 posterior fusion resection of the C6 mass which was negative for malignancy with 90% of mass removed, just showing inflammation, and a C4 through 7 laminectomy on 02/03/2018. Severe metabolic encephalopathy Recent aneurysmal subarachnoid hemorrhage treated at [facility] in January 2018 History of left occipital subarachnoid hemorrhage February 15, 2018 Cord edema possible hemorrhage within the cord level C7 through T1 On Precedex drip for sedation. Encephalopathy most likely metabolic from severe sepsis Repeat CT brain showed no acute abnormalities. EEG significant encephalopathy MRI brain: previously noted subarachnoid hemorrhage overlying the occipital lobes has resolved. Tiny trace of residual hemorrhage in the posterior lateral ventricles. Stable chronic white matter changes. No new or acute intracranial process. Neurology consult requested Dr. Arellano following. EEG: Mod. encephalopathy MRI brain 03/16 : There is a new area of nodular enhancement, abnormal FLAIR signal, and mild restricted diffusion at the baeza matter white matter junction in the left occipital lobe. 3 additional small areas of nodular enhancement measuring approximately 3 mm are also identified along the baeza matter surface in the left parietal high convexity. Etiology is nonspecific. MRI cervical spine 03/16: Persistent abnormal signal in the cord extending from C4 down to T1. Much of this likely related to edema. The edema appears to extend over a smaller area on the current exam. There is a linear area of increased signal seen on the T1 and T2-weighted images at the left-sided cord at the C7-T1 level which may represent an area of focal hemorrhage within the cord. Status post laminectomy with posterior fusion and hardware placed at the C4-T1 levels. Prevertebral soft tissue swelling. No focal fluid collection to suggest an abscess. Currently on gabapentin 600 mg 3 times daily/home medication on hold for neuropathy pain Currently on cyclobenzaprine 5 mg every 8 hours. Hold secondary to AMS Acetaminophen 650 every 6 hours as needed fever Discussed with Dr. Gutierrez. Reviewed MRI brain. No new recommendations at this time. Recommended neurosurgery evaluate MRI C-spine. Her neurosurgeon is Dr. Ku [phone] [id number] Pulm: Acute hypoxemic respiratory failure HCAP Extubated and reintubated on 03/11, failing CPAP trials due to low tidal volumes. PRVC 16/500/09/09/34 Ventilator bundle Albuterol/ipratropium aerosols every 4 hours with albuterol aerosols every 2 hours. Dyspnea Daily spontaneous breathing trials CT pulmonary angiogram chest: No PE, minimal consolidative changes left base Failing PSV trial secondary to low tidal volumes CV: A. fib/sinus tachycardia Septic shock Hyperlipidemia Holding metoprolol tartrate 50mg Q12 Monitor HR and BP keep MAP>65mmHg. on IV metoprolol 2.5 mg every 6 hours for intermittent tachycardia Pravachol 20mg daily for dyslipidemia - Elevated troponin, type II demand ischemia NSTEMI - Echo 03/06 EF 50-55% - Will not anticoagulate at this time given risk/benefit with recent head bleed Cortisol level: 41 Cards has followed Renal/FEN/: Urinary retention Monitor renal function, electrolytes replacement per protocol. Continue oxybutynin 5 mg every 8 hours GI: Elevated AST, Alk phos Monitor LFT's, CT abd/pelvis without evidence of overt acute cholecystitis Tube feeds- Glucerna 1.5 with goal rate 45ml/hr Lansoprazole for GI prophylaxis Docusate sodium/senna 1 tablet twice daily for bowel regimen CMP ordered for a.m. ID: Urinary tract infection ESBL E. coli bacteremia Pneumonia with Stenotrophomonas s/p Septic shock ID is following Continue with abx per ID (levofloxacin, piperacillin/tazobactam vancomycin ) Follow up blood cultures negative 03/11 sputum Stenotrophomonas 03/07: Sputum cx: NG 03/08, 03/09 BC: NGTD 03/06 BC Coag negative staph 03/05 BC: E.coli bacteremia 03/01 BC: E.coli ESBL 03/01 Urine cx: GNR Heme: Leukopenia Normocytic anemia Thrombocytopenia likely 2nd sepsis -Monitor CBC, s/p 2u PRBC 03/06 Heme is following- Dr. Miller Hep PLT ab negative FEN TIBC both low Transfuse one PRBC today. Hemoglobin currently 9.0 MSKRheum Sacral deep tissue injury SLE positive History of RF - present on admission - does not appear grossly infected - likely not the source of infection - management per wound care nurse Endo: SSI if needed for glycemic control On levothyroxine 50mcg daily. TSH: 0.47 GI prophylaxis- On lansoprazole 30 mg daily DVT prophylaxis- SCD, hold Heparin Sq due to recent [employer] bleed in January ( MRI brain 01/29) and thrombocytopenia Lines: Left subclavian CVL placed 03/12 Level 3 follow-up
[2018-03-18] MEDS: Acetaminophen 325 MG Tablet PO PRN ×2 (16:30→17:02)
[2018-03-18] MEDS: Potassium Phosphate Inj 30 MMOL in Sodium Chlor 0.9% Inj 250 ML IV.SIG PRN (16:38)
[2018-03-18] MEDS ORDERED: Cathflo Activase Inj 2 MG Vial I-CATHETER ONE (18:22)
[2018-03-18] MEDS: Metoprolol Inj 5 MG/5 ML Vial IV.PUSH PRN (23:32)
[2018-03-19] MEDS: Dexmedetomidine Inj 200 MCG in Sodium Chlor 0.9% Inj 48 ML IV.CONT PRN ×8 (01:48→20:10)
[2018-03-19] MEDS: Chlorhexidine 0.12% Oral Kit 15 ML UDC OROPHARYNG SCH ×2 (01:56→09:54)
[2018-03-19] MEDS: Collagenase Oint 30 GM Tube TOPICAL SCH ×3 (01:56→17:06)
[2018-03-19] MEDS: Insulin NovoLIN Regular Correctional Sugar Inj SQ SCH ×4 (01:57→17:07)
[2018-03-19] MEDS: Oral Hygiene Kit OROPHARYNG SCH ×4 (01:58→17:06)
[2018-03-19 04:17] LABS: Baso % (Auto) 0.3 % (0.0-2.0); Eos % (Auto) 0.5 % (0.0-4.0); Hematocrit 26.4 % (35.0-46.0); Lymph # (Auto) 1.2 th/mm3 (1.0-4.8); Mean Corpuscular HGB Conc 33.9 % (32.0-36.0); Mean Corpuscular Hemoglobin 30.3 pg (27.0-34.0); Mean Corpuscular Volume 89.4 fL (80.0-100.0); Mono # (Auto) 0.5 th/mm3 (0.0-0.9); Neut # (Auto) 3.9 th/mm3 (1.8-7.7); Neut % (Auto) 69.2 % (16.0-70.0); Platelet Count 126 th/mm3 (150-450); Red Blood Count 2.96 mil/mm3 (4.00-5.30); Red Cell Distribution Width 16.3 % (11.6-17.2); White Blood Count 5.7 th/mm3 (4.0-11.0)
[2018-03-19 04:40] LABS: Anion Gap 8 meq/L (5-15); Blood Urea Nitrogen 7 mg/dL (7-18); Calcium 7.2 mg/dL (8.5-10.1); Carbon Dioxide 24.8 meq/L (21.0-32.0); Chloride 112 meq/L (98-107); Glomerular Filtration Rate Greater Than 89 mL/min (>89); Glucose,Random 156 mg/dL (74-106); Magnesium 1.8 mg/dL (1.5-2.5); Phosphorus 2.8 mg/dL (2.5-4.9); Potassium 3.5 meq/L (3.5-5.1); Sodium 145 meq/L (136-145)
[2018-03-19 04:58] LABS: Total Protein 4.5 g/dL (6.4-8.2)
--- NOTE | 2018-03-19 05:45 | XR ---
EXAM DATE: 03/19/2018 5:04 AM EDT AGE/SEX: 62 years / Female INDICATIONS: Respiratory failure. CLINICAL DATA: This is the patient's subsequent encounter. Patient reports that signs and symptoms h ave been present for 3 days and indicates a pain score of Nonresponsive. MEDICAL/SURGICAL HISTORY: None. None. COMPARISON: [facility] [place], CHEST 1V SINGLE AP, 03/17/2018. . FINDINGS: Endotracheal tube tip appears to extend into the left mainstem bronchus. Slight retraction recommende d. Nasogastric tube descends to the stomach. Right subclavian central catheter is in good position. H azy bilateral pleural parenchymal opacities are grossly unchanged. Cardiac contours are stable. CONCLUSION: Endotracheal tube tip is engaged in the left mainstem bronchus. Retraction by couple of centimeters r ecommended. Otherwise stable chest Electronically signed by: Best Montoya MD 03/19/2018 5:43 AM EDT
[2018-03-19] MEDS: Hypromellose 0.3% Opth Gel 10 GM Bottle EACH EYE SCH ×2 (06:34→12:53)
[2018-03-19] MEDS: Vancomycin Inj 1,000 MG in Sodium Chlor 0.9% Inj 250 ML IV.SIG SCH (06:34)
[2018-03-19] MEDS: Levothyroxine 50 MCG Tablet PO SCH (06:35)
[2018-03-19] MEDS: Metoprolol Inj 5 MG/5 ML Vial IV.PUSH PRN (08:00)
[2018-03-19] MEDS: Gabapentin 300 MG Capsule PO SCH ×3 (09:53→17:07)
[2018-03-19] MEDS: Propofol 1000 mg/100 ml Inj 1,000 MG/100 ML BOTTLE IV.CONT PRN ×2 (09:56→13:51)
[2018-03-19] MEDS: Dextrose 5%/NaCl 0.9% Inj 1,000 ML IV.CONT SCH ×2 (12:50→17:07)
--- NOTE | 2018-03-19 13:09 | P.PNCC ---
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 she was sent to [facility] for procedural management of these. She was then transferred to [facility] on 02/28. Please see the dictated hospitalist consult note on 02/28 on admission to [facility] for a detailed record of the hospital course while at [facility]. Today, she was found to be very tachycardic in the 160s and hypotensive with sbp in the 70s. She was emergently transferred to the ICU after rapid response was called for evaluation and management of her hypotension. Of note, she did not have iv access. I met her on arrival to the ICU. I placed 2 18g piv. 12-lead EKG confirms sinus tachycardia. I due to the fast rate, I gave 6mg adenosine to slow it down diagnostically, and it slowed down temporarily to a HR in the 70s, confirming sinus rhythm. I performed bedside critical care echocardiography which demonstrates grossly preserve biventricular function. in particular, RV is decompressed and well-functioning. IVC is completely collapsable. no pericardial effusion. I gave her 3L NS bolus ivf which improved her SBP to 110s and decreased her HR to 110s. She is afebrile. stat CBC shows anemia (history of recent femoral artery pseudoaneurysm), CMP demonstrates elevated AST and Alk phos, elevated lactate at 3.7. Cr elevated above baseline. Patient denies any complaints to me. she is mostly german speaking, but communicates in basic Polish. specifically denies chest pain, shortness of breath, fever/chills, nausea, vomiting, abdominal pain, constipation, diarrhea. I discussed with her family, she has been eating and drinking well even up to today. ROS otherwise negative. 03/02 Patient is awake lying in bed in TRAV. On room air oxygen. T:103.2 this morning She was hypotensive overnight initially placed on Neosyn now off pressor with BP 147/67 with MAP 96. 03/03 No events overnight. Seems more awake and alert this morning. T: 100.2 at midnight. BP and HR better ( 119/58 with MAP 83mmHg). On no pressors. BC from 03/01: E.coli ESBL 6/30: clinically improving. slightly tachycardic. on appropriate therapy for her ESBL e. coli. denies complaints. hemodynamically stable. on room air. 03/05: Patient developed worsening respiratory distress yesterday and required endotracheal intubation and was placed on mechanical ventilation. Hypotension overnight for which patient was started on phenylephrine. Developed A. fib with RVR and was started on amiodarone gtt. 03/06 Patient remains sedated and intubated. Tmax 101.6, On Amio drip. 03/07 Patient remains intubated off sedation. s/p transfusion 2u PRBC yesterday. Tolerating tube feeds. Afebrile. Off Amio drip. 03/08 Patient remains intubated. T:100.9 last night. 03/09 No events overnight. Tolerated CPAP for approx 4 hrs yesterday. Off sedation. Afebrile. 03/10 No events overnight T:100.1 at 4am, Awake, patient was on CPAP for short time yesterday and placed back on PRVC mode for low TV and tachycardia. 03/11 No events overnight. Tolerated CPAP x 4hrs yesterday. T:100.6 yesterday. On no sedation. 03/12 Patient was extubated yesterday reintubated last night for resp distress and AMS. Afebrile. On Diprivan infusion for sedation. 03/13: Remains intubated critical, remains encephalopathy unresponsive off sedation. Afebrile EEG showed significant encephalopathy no seizures. Right subclavian central line placed, remains on Luis-Synephrine to keep map above 65 03/14: Remains encephalopathy again unresponsive. Eyes are open but no tracking did not follow commands. Remains leukopenic. Weaned off Luis-Synephrine. Not tolerating CPAP due to low tidal volume 03/15: Continues to fail CPAP due to low tidal volume. IV Levaquin added yesterday by ID for stenotrophomonas in the sputum. Remains encephalopathic did not follow commands but eyes are spontaneously open. I have requested neurology consult today 03/16: T-max 100.1. Currently 99. EEG has been performed. Does not follow commands. Tube feeds at 30 cc an hour. Positive BM. 03/17 Patient remains intubated on Precedex drip but awake. 03/18 T-current 100.7. Tolerating tube feeds at goal. Arousable the ventilator and follows command. Left side is chronically weaker. Discussed with Dr. Gutierrez /neurology. Reviewed MRI brain. Recommended evaluation by neurosurgery for abnormal MRI C-spine. Patient's CT surgeon at [facility] is Dr. Ku [phone] Subjective 03/19: T-max 100.7. Currently 99. Tachycardic. Tolerated CPAP trial. On the ventilator currently. Positive BM yesterday. Objective Vital Signs / I&O: Vital Signs 03/18/18 13:30 03/18/18 14:00 03/18/18 14:30 Temperature Pulse Rate 104 H 100 H 101 H Respiratory Rate 16 16 16 Blood Pressure 139/82 153/83 H 144/86 H Pulse Oximetry 100 100 100 03/18/18 14:54 03/18/18 15:00 03/18/18 15:30 Temperature Pulse Rate 108 H 103 H 109 H Respiratory Rate 17 16 16 Blood Pressure 144/86 H 143/80 H Pulse Oximetry 100 100 03/18/18 16:00 03/18/18 16:16 03/18/18 19:00 Temperature 100.7 F H Pulse Rate 109 H 97 H Respiratory Rate 16 16 16 Blood Pressure 134/75 Pulse Oximetry 100 93 L 100 03/18/18 19:18 03/18/18 19:19 03/18/18 19:30 Temperature Pulse Rate 96 H 99 H Respiratory Rate 16 16 16 Blood Pressure 128/75 Pulse Oximetry 100 03/18/18 20:00 03/18/18 20:30 03/18/18 21:00 Temperature 98.8 F Pulse Rate 104 H 102 H 101 H Respiratory Rate 16 16 16 Blood Pressure 126/75 126/75 118/72 Pulse Oximetry 99 100 100 03/18/18 21:30 03/18/18 22:00 03/18/18 22:30 Temperature Pulse Rate 100 H 103 H 97 H Respiratory Rate 16 16 16 Blood Pressure 121/74 124/78 123/79 Pulse Oximetry 100 96 100 03/18/18 23:00 03/18/18 23:04 03/18/18 23:30 Temperature Pulse Rate 97 H 97 H 144 H Respiratory Rate 16 16 16 Blood Pressure 121/76 92/60 L Pulse Oximetry 94 L 100 03/19/18 00:00 03/19/18 00:01 03/19/18 00:30 Temperature Pulse Rate 121 H 121 H 118 H Respiratory Rate 16 17 16 Blood Pressure 126/73 107/68 Pulse Oximetry 98 88 L 100 03/19/18 00:58 03/19/18 01:00 03/19/18 01:30 Temperature Pulse Rate 113 H 111 H Respiratory Rate 17 16 16 Blood Pressure 113/72 113/72 Pulse Oximetry 100 100 100 03/19/18 02:00 03/19/18 02:30 03/19/18 03:00 Temperature Pulse Rate 109 H 109 H 109 H Respiratory Rate 17 16 16 Blood Pressure 91/61 L 94/62 L 101/64 Pulse Oximetry 98 100 100 03/19/18 03:21 03/19/18 03:30 03/19/18 04:00 Temperature 99 F Pulse Rate 108 H 108 H 113 H Respiratory Rate 16 16 16 Blood Pressure 117/68 105/69 Pulse Oximetry 100 100 03/19/18 04:30 03/19/18 05:00 03/19/18 05:30 Temperature Pulse Rate 113 H 113 H 112 H Respiratory Rate 21 20 20 Blood Pressure 101/69 110/68 116/71 Pulse Oximetry 100 100 100 03/19/18 06:00 03/19/18 06:30 03/19/18 07:00 Temperature Pulse Rate 113 H 123 H 120 H Respiratory Rate 24 20 21 Blood Pressure 120/75 112/74 116/75 Pulse Oximetry 100 100 100 03/19/18 07:22 03/19/18 08:00 03/19/18 11:13 Temperature Pulse Rate 120 H 104 H Respiratory Rate 16 16 Blood Pressure Pulse Oximetry 100 03/19/18 12:06 Temperature Pulse Rate Respiratory Rate Blood Pressure Pulse Oximetry 100 Intake & Output 03/18/18 03/19/18 03/19/18 18:59 06:59 18:59 Intake Total 2420 / 2420 1782 / 1782 1250 / 1250 Output Total 3700 / 3700 2850 / 2850 Balance -1280 / -1280 -1068 / -1068 1250 / 1250 Weight 75.8 kg Intake: IV 1754 / 1754 1300 / 1300 1250 / 1250 Precedex Inj 200 MCG In NS Inj 254 / 254 200 / 200 150 / 150 48 ML @ 0.2 MCG/KG/HR 3.53 mls/ hr IV.CONT TITRATE PRN Rx#: [id number] D5W/Normal Saline Inj 1,000 ML 1000 / 1000 1000 / 1000 1000 / 1000 @ 84 mls/hr IV.CONT .[id number] [facility] Rx#:[id number] Diprivan 1000 mg/100 ml Inj 1, 100 / 100 100 / 100 000 mg In 100 ml @ 5 MCG/KG/MIN 2.118 mls/hr IV.CONT TITRATE PRN Rx#:[id number] Vancomycin Inj 1,000 MG In NS 500 / 500 Inj 250 ML @ 250 mls/hr IV.SIG Q12H [facility] Rx#:[id number] Oral 0 / 0 0 / 0 Tube Feeding 266 / 266 382 / 382 Tube Irrigant 0 / 0 Water Bolus Amount 100 / 100 Intake (Blood Product) Amt 400 / 400 Rbc As-3 Leukoreduced Unit 400 / 400 [id number] Output: Urine 1850 / 1850 Stool 0 / 0 Urine/Stool Mix 0 / 0 Urine Amount (Catheter) 185 / 1850 2850 / 2850 Indwelling Temp Sensing 1000 / 1000 Catheter Indwelling Urethral Catheter 1849 1850 / 1850 Other: Date of Last Bowel Movement 03/18/18 03/18/18 # Bowel Movements 1 0 # Emeses 1 # Oral Regurgitations 1 Result Diagrams: 03/19/18 03:50 03/19/18 03:50 Other Results: Microbiology 03/16/18 19:40 Blood - Line Aerobic Blood Culture - Preliminary No growth in 3 days 03/16/18 19:40 Blood - Line Anaerobic Blood Culture - Preliminary No growth in 3 days 03/16/18 19:45 Blood - Line Aerobic Blood Culture - Preliminary No growth in 3 days 03/16/18 19:45 Blood - Line Anaerobic Blood Culture - Preliminary No growth in 3 days 03/16/18 15:28 Catheterized Urine Urine Culture - Final No growth in 48 hours 03/15/18 04:50 Sputum - Endotracheal Gram Stain - Final 03/15/18 04:50 Sputum - Endotracheal Sputum Culture - Final Stenotrophomonas maltophilia 03/12/18 00:46 Blood - Peripheral Aerobic Blood Culture - Final No growth in 5 days 03/12/18 00:46 Blood - Peripheral Anaerobic Blood Culture - Final No growth in 5 days 03/12/18 00:40 Blood - Peripheral Aerobic Blood Culture - Final No growth in 5 days 03/12/18 00:40 Blood - Peripheral Anaerobic Blood Culture - Final No growth in 5 days 03/15/18 23:15 Stool Stool Occult Blood (ABEBE) - Final Hemoccult negative 03/11/18 22:30 Sputum - Endotracheal Gram Stain - Final 03/11/18 22:30 Sputum - Endotracheal Sputum Culture - Final Stenotrophomonas maltophilia 03/09/18 19:21 Blood - Peripheral Aerobic Blood Culture - Final No growth in 5 days 03/09/18 19:21 Blood - Peripheral Anaerobic Blood Culture - Final No growth in 5 days 03/09/18 19:28 Blood - Peripheral Aerobic Blood Culture - Final No growth in 5 days 03/09/18 19:28 Blood - Peripheral Anaerobic Blood Culture - Final No growth in 5 days 03/08/18 11:00 Blood - Peripheral Aerobic Blood Culture - Final No growth in 5 days 03/08/18 11:00 Blood - Peripheral Anaerobic Blood Culture - Final No growth in 5 days 03/08/18 11:09 Blood - Peripheral Aerobic Blood Culture - Final No growth in 5 days 03/08/18 11:09 Blood - Peripheral Anaerobic Blood Culture - Final No growth in 5 days 03/09/18 16:45 Sputum - Endotracheal Gram Stain - Final 03/09/18 16:45 Sputum - Endotracheal Sputum Culture - Final Heavy growth normal respiratory ramesh 03/06/18 05:12 Blood - Peripheral Aerobic Blood Culture - Final Staphylococcus coag negative 03/06/18 05:12 Blood - Peripheral Anaerobic Blood Culture - Final Staphylococcus epidermidis 03/05/18 15:33 Blood - Peripheral Aerobic Blood Culture - Final No growth in 5 days 03/05/18 15:33 Blood - Peripheral Anaerobic Blood Culture - Final Escherichia coli ESBL positive 03/08/18 17:55 Catheterized Urine Urine Culture - Final No growth in 48 hours 03/07/18 16:00 Sputum - Endotracheal Gram Stain - Final 03/07/18 16:00 Sputum - Endotracheal Sputum Culture - Final Heavy growth normal respiratory ramesh 03/05/18 12:55 Blood - Peripheral Aerobic Blood Culture - Final Escherichia coli ESBL positive 03/05/18 12:55 Blood - Peripheral Anaerobic Blood Culture - Final Escherichia coli ESBL positive Imaging: Chest X-Ray 03/07/18 00:00 CONCLUSION: 1. Persistent left lower lobe consolidation and pleural effusion. 2. Interval resolution of diffuse infiltrates in the right lung and reduction in the infiltrates in the left upper lung. Chest X-Ray 03/09/18 08:51 CONCLUSION: 1. Interval removal of left subclavian central line. 2. Stable small left pleural effusion and associated airspace disease in the left lower lobe. 3. Continued improving aeration of the left upper lung zone. 4. Stable mild airspace disease in the right lower lung zone. Chest X-Ray 03/11/18 21:53 CONCLUSION: Basilar airspace disease and pleural effusions similar to March 09. Endotracheal tube tip just above raz. Head CT 03/12/18 06:59 CONCLUSION: 1. No acute intracranial abnormality. 2. Minimal fluid in the mastoid air cells. Chest X-Ray 03/12/18 21:40 CONCLUSION: Placement of a right central line with tip in right atrium. No pneumothorax. Chest X-Ray 03/14/18 06:00 CONCLUSION: 1. No significant interval change. 2. Stable tubes and lines. 3. Stable small bilateral pleural effusions and associated lower lung zone airspace disease. Chest X-Ray 03/15/18 06:00 CONCLUSION: 1. No significant interval change. 2. Stable tubes and lines. 3. Stable bilateral [id number] pleural effusions with associated lower lobe airspace disease. Cervical Spine MRI 03/16/18 00:00 CONCLUSION: 1. Persistent abnormal signal in the cord extending from C4 down to T1. Much of this likely related to edema. The edema appears to extend over a smaller area on the current exam. There is a linear area of increased signal seen on the T1 and T2-weighted images at the left-sided cord at the C7-T1 level which may represent an area of focal hemorrhage within the cord. 2. Status post laminectomy with posterior fusion and hardware placed at the C4- T1 levels. 3. Prevertebral soft tissue swelling. 4. No focal fluid collection to suggest an abscess is seen. Head MRI 03/16/18 00:00 CONCLUSION: 1. There is a new area of nodular enhancement, abnormal FLAIR signal, and mild restricted diffusion at the baeza matter white matter junction in the left occipital lobe. 3 additional small areas of nodular enhancement measuring approximately 3 mm are also identified along the baeza matter surface in the left parietal high convexity. Etiology is nonspecific. Metastatic disease is one consideration but given the history infection is another consideration. Suggest attention to these areas at follow-up imaging. 2. Increased fluid in the mastoid air cells bilaterally. Chest X-Ray 03/17/18 06:00 CONCLUSION: Better aeration of the lungs with bibasilar densities and small pleural effusions. Chest X-Ray 03/19/18 06:00 CONCLUSION: Endotracheal tube tip is engaged in the left mainstem bronchus. Retraction by couple of centimeters recommended. Otherwise stable chest Objective Remarks: GENERAL: Patient is 62 yo female patient intubated and off sedation SKIN: Warm and dry. No rash. Sacral DTI HEAD: Normocephalic. EYES: No scleral icterus. No injection or drainage. NECK: Supple, trachea midline. No JVD or lymphadenopathy. CARDIOVASCULAR: Tachycardic, RR. S1, S2. No S4. Without murmurs, gallops, or rubs. RESPIRATORY: Breath sounds equal bilaterally. No accessory muscle use. Diminished in the bases bilaterally. GASTROINTESTINAL: Abdomen soft, non-tender, nondistended. Hypoactive bowel sounds appreciated. MUSCULOSKELETAL: Trace bilateral lower extremity edema. NEURO: Intubated, awake. Strength 5 out of 5 right upper lower extent. 3-4-5 left upper lower extremity. Follows commands. Nods head appropriately to questions. Assessment and Plan - Assessment and Plan Plan: Neuro/Psych: History of C6 vertebral aneurysm and underwent a C4 through T1 posterior fusion resection of the C6 mass which was negative for malignancy with 90% of mass removed, just showing inflammation, and a C4 through 7 laminectomy on 02/03/2018. Severe metabolic encephalopathy Recent aneurysmal subarachnoid hemorrhage treated at [facility] in January 2018 History of left occipital subarachnoid hemorrhage February 15, 2018 Cord edema possible hemorrhage within the cord level C7 through T1 On Precedex drip for sedation. Encephalopathy most likely metabolic from severe sepsis Repeat CT brain showed no acute abnormalities. EEG significant encephalopathy MRI brain: previously noted subarachnoid hemorrhage overlying the occipital lobes has resolved. Tiny trace of residual hemorrhage in the posterior lateral ventricles. Stable chronic white matter changes. No new or acute intracranial process. Neurology consult requested Dr. Arellano following. EEG: Mod. encephalopathy MRI brain 03/16 : There is a new area of nodular enhancement, abnormal FLAIR signal, and mild restricted diffusion at the baeza matter white matter junction in the left occipital lobe. 3 additional small areas of nodular enhancement measuring approximately 3 mm are also identified along the baeza matter surface in the left parietal high convexity. Etiology is nonspecific. MRI cervical spine 03/16: Persistent abnormal signal in the cord extending from C4 down to T1. Much of this likely related to edema. The edema appears to extend over a smaller area on the current exam. There is a linear area of increased signal seen on the T1 and T2-weighted images at the left-sided cord at the C7-T1 level which may represent an area of focal hemorrhage within the cord. Status post laminectomy with posterior fusion and hardware placed at the C4-T1 levels. Prevertebral soft tissue swelling. No focal fluid collection to suggest an abscess. Currently on gabapentin 600 mg 3 times daily/home medication on hold for neuropathy pain Currently on cyclobenzaprine 5 mg every 8 hours. Hold secondary to AMS Acetaminophen 650 every 6 hours as needed fever Discussed with Dr. Gutierrez. Reviewed MRI brain. No new recommendations at this time. Recommended neurosurgery evaluate MRI C-spine. Her neurosurgeon is Dr. Ku [phone] Pulm: Acute hypoxemic respiratory failure HCAP Extubated and reintubated on 03/11, failing CPAP trials due to low tidal volumes. PRVC 16/500/// Ventilator bundle Albuterol/ipratropium aerosols every 4 hours with albuterol aerosols every 2 hours. Dyspnea Daily spontaneous breathing trials CT pulmonary angiogram chest: No PE, minimal consolidative changes left base Failing PSV trial secondary to low tidal volumes CV: A. fib/sinus tachycardia Septic shock Hyperlipidemia Holding metoprolol tartrate 50mg Q12 Monitor HR and BP keep MAP>65mmHg. on IV metoprolol 2.5 mg every 6 hours for intermittent tachycardia Pravachol 20mg daily for dyslipidemia - Elevated troponin, type II demand ischemia NSTEMI - Echo 03/06 EF 50-55% - Will not anticoagulate at this time given risk/benefit with recent head bleed Cortisol level: 41 Cards has followed Renal/FEN/: Urinary retention Monitor renal function, electrolytes replacement per protocol. Continue oxybutynin 5 mg every 8 hours GI: Elevated AST, Alk phos Monitor LFT's, CT abd/pelvis without evidence of overt acute cholecystitis Tube feeds- Glucerna 1.5 with goal rate 45ml/hr Lansoprazole for GI prophylaxis Docusate sodium/senna 1 tablet twice daily for bowel regimen CMP ordered for a.m. ID: Urinary tract infection ESBL E. coli bacteremia Pneumonia with Stenotrophomonas s/p Septic shock ID is following Continue with abx per ID (levofloxacin, piperacillin/tazobactam vancomycin) Follow up blood cultures negative 03/11 sputum Stenotrophomonas 03/07: Sputum cx: NG 03/08, 03/09 BC: NGTD 03/06 BC Coag negative staph 03/05 BC: E.coli bacteremia 03/01 BC: E.coli ESBL 03/01 Urine cx: GNR Heme: Normocytic anemia Thrombocytopenia likely 2nd sepsis -Monitor CBC, s/p 2u PRBC 03/06 Heme is following- Dr. Miller Hep PLT ab negative FEN TIBC both low Transfuse one PRBC today. Hemoglobin currently 9.0 MSKRheum Sacral deep tissue injury SLE positive History of RF - present on admission - does not appear grossly infected - likely not the source of infection - management per wound care nurse Endo: SSI if needed for glycemic control On levothyroxine 50mcg daily. TSH: 0.47 GI prophylaxis- On lansoprazole 30 mg daily DVT prophylaxis- SCD, hold Heparin Sq due to recent MANAGER ICU bleed in January ( MRI brain 01/29) and thrombocytopenia Lines: Left subclavian CVL placed 03/12 Level 3 follow-up
[2018-03-19] MEDS: Mag Sulf 1 gm/100 ml Premix 100 ML IV.SIG SCH (17:06)
--- NOTE | 2018-03-19 20:54 | P.CONNS ---
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 developed tachypnea, hypertension. Transferred to intensive surgical care unit. 03/05/2018, further respiratory distress requiring intubation. Has remained intubated with sedation since then. Noted to be encephalopathic off sedation, minimal responsiveness. Patient has undergone a follow-up MRI of the brain on 03/16/2018 revealing new area of nodular enhancement with abnormal FLAIR signal intensity and mild restricted diffusion at the baeza-white interface of the left occipital lobe with smaller similar areas at the left parietal convexity. MRI of the cervical spine 03/16/2018 does reveal persistent spinal cord edema primarily C4 through T1 level. Review of Systems Intubated and sedated. PMFSH - Medical / Surgical Hx Neg / Unobtainable Medical Problems Denied: Unable to Obtain Medications and Allergies Active Medications: Active Medications Acetaminophen (Tylenol) 650 mg PO Q6H PRN PRN Reason: PAIN 1-5 AND/OR FEVER > 101F Last Admin: 03/18/18 17:02 Dose: 650 mg Albuterol (Duoneb Neb (Brian)) 1 ampul NEB Q4HR NEB [facility] Last Admin: 03/19/18 19:57 Dose: 1 ampul Albuterol (Albuterol Neb (Prn)) 2.5 mg NEB Q2HR NEB PRN PRN Reason: DYSPNEA Artificial Tears (Genteal Severe Dry Eye Relief 0.3% Opth Gel) 1 drops EACH EYE Q8H [facility] Last Admin: 03/19/18 12:53 Dose: 1 drops Chlorhexidine Gluconate (Peridex 0.12% Oral Kit) 15 ml OROPHARYNG BID@0800, 2000 [facility] Last Admin: 03/19/18 09:54 Dose: 15 ml Collagenase (Santyl Oint) 1 applicatio TOPICAL Q24H [facility] Last Admin: 03/19/18 17:06 Dose: 1 applicatio Cyclobenzaprine HCl (Flexeril) 5 mg PO TID [facility] Last Admin: 03/19/18 17:05 Dose: 5 mg Dextrose (D50w Vial) 50 ml IV.PUSH UNSCH PRN PRN Reason: PER HYPOGLYCEMIA PROTOCOL Gabapentin (Neurontin) 600 mg PO TID [facility] Last Admin: 03/19/18 17:07 Dose: 600 mg Glucagon (Glucagon Inj) 1 mg OTHER PRN PRN PRN Reason: for Hypoglycemia Protocol Magnesium Sulfate Inj 4 gm/ (Sodium Chloride) 100 mls @ 50 mls/hr IV.SIG UNSCH PRN PRN Reason: For Magnesium 0.9 - 1.1 mg/dL Magnesium Sulfate Inj 2 gm/ (Sodium Chloride) 100 mls @ 50 mls/hr IV.SIG UNSCH PRN PRN Reason: For Magnesium 1.2 - 1.6 mg/dL Potassium Chloride (Kcl 40 Meq Premix Inj) 40 meq in 100 mls @ 25 mls/hr IV.SIG Q2H PRN PRN Reason: For Potassium 2.8 - 3.2 mEq/L Potassium Chloride (Kcl 20 Meq Premix Inj) 20 meq in 100 mls @ 50 mls/hr IV.SIG Q2H PRN PRN Reason: For Potassium 3.3 - 3.5 mEq/L Last Admin: 03/11/18 06:54 Dose: 25 mls/hr Potassium Chloride (Kcl 40 Meq Premix Inj) 40 meq in 100 mls @ 25 mls/hr IV.SIG UNSCH PRN PRN Reason: For Potassium 3.3 - 3.5 mEq/L Potassium Chloride (Kcl 20 Meq Premix Inj) 20 meq in 100 mls @ 50 mls/hr IV.SIG Q2H PRN PRN Reason: For Potassium 2.8 - 3.2 mEq/L Potassium Phosphate 30 mmol/ (Sodium Chloride) 260 mls @ 42 mls/hr IV.SIG UNSCH PRN PRN Reason: SEE LABEL COMMENTS Last Infusion: 03/07/18 17:36 Dose: Infused Sodium Phosphate 30 mmol/ (Sodium Chloride) 260 mls @ 42 mls/hr IV.SIG UNSCH PRN PRN Reason: For Phosphorus < 2.5 mg/dL Pharmacy Profile Note (Vancomycin Consult Pharmacy) 0 mls @ 0 mls/hr OTHER UNSCH [facility] Vancomycin HCl 1,000 mg/ (Sodium Chloride) 250 mls @ 250 mls/hr IV.SIG Q12H [facility] Last Infusion: 03/19/18 16:58 Dose: 0 mls/hr Dextrose/Sodium Chloride (D5w/Normal Saline Inj) 1,000 mls @ 84 mls/hr IV.CONT .[id number] [facility] Last Admin: 03/19/18 17:07 Dose: Not Given Levofloxacin/Dextrose (Levaquin 750 Mg Premix Inj) 150 mls @ 100 mls/hr IV.SIG Q24H [facility] Last Admin: 03/19/18 15:00 Dose: 100 mls/hr Dexmedetomidine HCl 200 mcg/ (Sodium Chloride) 50 mls @ 3.53 mls/hr IV.CONT TITRATE PRN; Protocol PRN Reason: Per Protocol Last Admin: 03/19/18 17:20 Dose: 1.3 mcg/kg/hr, 22.94 mls/hr Propofol (Diprivan 1000 Mg/100 Ml Inj) 1,000 mg in 100 mls @ 2.118 mls/hr IV.CONT TITRATE PRN; Protocol PRN Reason: Per Protocol Last Admin: 03/19/18 13:51 Dose: 40 mcg/kg/min, 16.94 mls/hr Insulin Human Regular (Novolin R Supplemental Scale) 0 units SQ Q6HR [facility]; Protocol Last Admin: 03/19/18 17:07 Dose: Not Given Lansoprazole (Prevacid Solutab) 30 mg NG/OG DAILY [facility] Last Admin: 03/19/18 09:55 Dose: 30 mg Levothyroxine Sodium (Synthroid) 50 mcg PO DAILY@0600 [facility] Last Admin: 03/19/18 06:35 Dose: 50 mcg Magnesium Oxide (Mag-Ox) 800 mg PO UNSCH PRN PRN Reason: For Magnesium 1.2 - 1.6 mg/dL Last Admin: 03/14/18 05:37 Dose: 800 mg Magnesium Oxide (Mag-Ox) 800 mg PO UNSCH PRN PRN Reason: For Magnesium 1.2 - 1.6 mg/dL Metoprolol Tartrate (Lopressor Inj) 2.5 mg IV.PUSH Q6H PRN PRN Reason: RAPID HEART RATE Last Admin: 03/19/18 08:00 Dose: 2.5 mg Miscellaneous (Pill Splitter) 1 each OTHER UNSCH PRN PRN Reason: SEE LABEL COMMENTS Miscellaneous Information ([facility] Ordered Lab Info) 0 each OTHER ONCE ONE Stop: 03/20/18 05:46 Ondansetron HCl (Zofran Odt) 4 mg PO Q6H PRN PRN Reason: NAUSEA OR VOMITING Last Admin: 03/13/18 05:49 Dose: 4 mg Oxybutynin Chloride (Ditropan) 5 mg PO Q8HR [facility] Last Admin: 03/19/18 17:04 Dose: 5 mg Potassium Bicarb/Potassium Chloride (K-Lyte Cl Eff) 50 meq PO UNSCH PRN PRN Reason: For Potassium 3.3 - 3.5 mEq/L Potassium Phosphate (K-Phos Original) 2,000 mg PO Q4H PRN PRN Reason: Phosphorus Less Than 2.5 mg/dL Potassium Phosphate (K-Phos Original) 2,000 mg PO UNSCH PRN PRN Reason: SEE LABEL COMMENTS Pravastatin Sodium (Pravachol) 20 mg PO DAILY [facility] Last Admin: 03/19/18 09:54 Dose: 20 mg Sodium Chloride (Ns Flush) 0 ml IV.FLUSH UNSCH BRIAN; Protocol Sodium Chloride (Ns Flush) 2 ml IV.FLUSH BID [facility]; Protocol Last Admin: 03/19/18 09:55 Dose: 2 ml Terbutaline Sulfate (Brethine Inj) 1 mg SQ UNSCH PRN PRN Reason: For Extravasation Tramadol HCl (Ultram) 50 mg PO Q8H PRN PRN Reason: PAIN 6-10 Last Admin: 03/10/18 03:17 Dose: 50 mg Allergies Allergy/AdvReac Type Severity Reaction Status Date / Time codeine Allergy Intermediate Verified 01/24/18 17:12 nitroglycerin AdvReac Severe Nausea/Vomi Verified 01/25/18 09:14 ting Home Medications Medication Instructions Recorded Confirmed Type Bactrim DS 1 tab PO BID 03/04/18 03/04/18 History Ditropan XL 5 mg PO Q8HR 03/04/18 03/04/18 History Lopressor 25 mg PO BID 03/04/18 03/04/18 History Multiple Vitamins 1 tab PO DAILY 03/04/18 03/04/18 History ohzzscsgck-[id number]-oftk 1 tab PO Q4HR 03/04/18 03/04/18 History cyclobenzaprine 5 mg PO TID 03/04/18 03/04/18 History famotidine 20 mg PO BID 03/04/18 03/04/18 History gabapentin 600 mg PO TID 03/04/18 03/04/18 History levothyroxine 50 mcg PO DAILY 03/04/18 03/04/18 History lovastatin 20 mg PO DAILY 03/04/18 03/04/18 History metformin 500 mg PO BID 03/04/18 03/04/18 History mycophenolate mofetil 1,000 mg PO BID 03/04/18 03/04/18 History prednisone See Label Instructions .ROUTE 03/04/18 03/04/18 History .COMPLEX tramadol 50 mg PO Q8HR 03/04/18 03/04/18 History Exam Vital signs: Vital Signs 03/18/18 21:00 03/18/18 21:30 03/18/18 22:00 Temperature Pulse Rate 101 H 100 H 103 H Respiratory Rate 16 16 16 Blood Pressure 118/72 121/74 124/78 Pulse Oximetry 100 100 96 03/18/18 22:30 03/18/18 23:00 03/18/18 23:04 Temperature Pulse Rate 97 H 97 H 97 H Respiratory Rate 16 16 16 Blood Pressure 123/79 121/76 Pulse Oximetry 100 94 L 03/18/18 23:30 03/19/18 00:00 03/19/18 00:01 Temperature Pulse Rate 144 H 121 H 121 H Respiratory Rate 16 16 17 Blood Pressure 92/60 L 126/73 Pulse Oximetry 100 98 88 L 03/19/18 00:30 03/19/18 00:58 03/19/18 01:00 Temperature Pulse Rate 118 H 113 H Respiratory Rate 16 17 16 Blood Pressure 107/68 113/72 Pulse Oximetry 100 100 100 03/19/18 01:30 03/19/18 02:00 03/19/18 02:30 Temperature Pulse Rate 111 H 109 H 109 H Respiratory Rate 16 17 16 Blood Pressure 113/72 91/61 L 94/62 L Pulse Oximetry 100 98 100 03/19/18 03:00 03/19/18 03:21 03/19/18 03:30 Temperature Pulse Rate 109 H 108 H 108 H Respiratory Rate 16 16 16 Blood Pressure 101/64 117/68 Pulse Oximetry 100 100 03/19/18 04:00 03/19/18 04:30 03/19/18 05:00 Temperature 99 F Pulse Rate 113 H 113 H 113 H Respiratory Rate 16 21 20 Blood Pressure 105/69 101/69 110/68 Pulse Oximetry 100 100 100 03/19/18 05:30 03/19/18 06:00 03/19/18 06:30 Temperature Pulse Rate 112 H 113 H 123 H Respiratory Rate 20 24 20 Blood Pressure 116/71 120/75 112/74 Pulse Oximetry 100 100 100 03/19/18 07:00 03/19/18 07:22 03/19/18 08:00 Temperature 98.3 F Pulse Rate 120 H 120 H 121 H Respiratory Rate 21 16 27 H Blood Pressure 116/75 133/78 Pulse Oximetry 100 100 03/19/18 08:30 03/19/18 09:00 03/19/18 09:30 Temperature Pulse Rate 107 H 111 H 110 H Respiratory Rate 27 H 21 27 H Blood Pressure 125/77 105/66 110/73 Pulse Oximetry 100 100 100 03/19/18 10:00 03/19/18 10:30 03/19/18 11:00 Temperature Pulse Rate 113 H 104 H 104 H Respiratory Rate 16 16 18 Blood Pressure 108/69 111/69 114/70 Pulse Oximetry 100 100 100 03/19/18 11:13 03/19/18 11:30 03/19/18 12:00 Temperature 98.3 F Pulse Rate 104 H 108 H 109 H Respiratory Rate 16 16 16 Blood Pressure 112/66 117/73 Pulse Oximetry 100 100 03/19/18 12:06 03/19/18 13:00 03/19/18 14:00 Temperature Pulse Rate 104 H 105 H Respiratory Rate 21 21 Blood Pressure 121/73 118/73 Pulse Oximetry 100 100 100 03/19/18 14:30 03/19/18 15:00 03/19/18 15:21 Temperature Pulse Rate 107 H 108 H Respiratory Rate 19 20 16 Blood Pressure 113/71 115/71 Pulse Oximetry 100 100 100 03/19/18 15:30 03/19/18 16:00 03/19/18 19:57 Temperature 98.9 F Pulse Rate 108 H 112 H 109 H Respiratory Rate 21 21 16 Blood Pressure 103/67 109/71 Pulse Oximetry 100 100 100 Intake & Output 03/19/18 03/19/18 03/20/18 06:59 18:59 06:59 Intake Total 1782 / 1782 2084 / 2084 Output Total 2850 / 2850 800 / 800 Balance -1068 / -1068 1284 / 1284 Weight 75.8 kg Intake: IV 1300 / 1300 1600 / 1600 Precedex Inj 200 MCG In NS Inj 200 / 200 250 / 250 48 ML @ 0.2 MCG/KG/HR 3.53 mls/ hr IV.CONT TITRATE PRN Rx#: [id number] D5W/Normal Saline Inj 1,000 ML 1000 / 1000 1000 / 1000 @ 84 mls/hr IV.CONT .[id number] BRIAN Rx#:[id number] Diprivan 1000 mg/100 ml Inj 1, 100 / 100 200 / 200 000 mg In 100 ml @ 5 MCG/KG/MIN 2.118 mls/hr IV.CONT TITRATE PRN Rx#:[id number] Levaquin 750 mg Premix Inj 150 150 / 150 ML @ 100 mls/hr IV.SIG Q24H [facility] Rx#:[id number] Vancomycin Inj 1,000 MG In NS 0 / 0 Inj 250 ML @ 250 mls/hr IV.SIG Q12H [facility] Rx#:[id number] Oral 0 / 0 Tube Feeding 382 / 382 304 / 304 Water Bolus Amount 100 / 100 180 / 180 Output: Urine Amount (Catheter) 2850 / 2850 800 / 800 Indwelling Temp Sensing 1000 / 1000 Catheter Indwelling Urethral Catheter 1850 / 1850 800 / 800 Other: Date of Last Bowel Movement 03/18/18 # Bowel Movements 0 Narrative: Patient intubated and sedated. Respirations clear Cardiac regular Abdomen soft Extremities no significant edema or cyanosis posterior tibial pulse 2+ bilateral Musculoskeletal: No significant long bone or joint deformity. Decreased muscle tone. Neurologic: No response to voice. Does not follow commands. No eye-opening to voice or deep pain Pupils are 3-4 mm nonreactive. Absent oculocephalic responses. Moderate bilateral corneal responses. No grimacing to deep pain No extremity movement to deep pain. Kerr's response absent bilateral Plantar responses are extensor bilateral Per nursing report, off sedation the patient is awake, attempts to talk around the endotracheal tube. Follows commands. Results - Laboratory Findings CBC and BMP: 03/19/18 03:50 03/19/18 03:50 Abnormal lab findings: Abnormal Labs 03/01/18 03/01/18 03/01/18 09:30 09:30 09:30 WBC RBC Hgb Hct RDW Plt Count Neut % (Auto) Lymph % (Auto) Ritchie % (Auto) Neut # (Auto) Lymph # (Auto) Seg Neuts % (Manual) Band Neuts % (Manual) Lymphocytes % (Manual) Metamyelocytes % (Man) Plasma Cell % (Manual) Nucleated RBCs/100 WBC Toxic Granulation Dohle Bodies Platelet Estimate Platelet Morphology Ovalocytes Rouleaux Keratocytes PT APTT 22.0 L Fibrinogen D-Dimer Quant (PE/DVT) HCO3 Base Excess O2 Saturation ABG pH ABG pCO2 ABG pO2 ABG HCO3 ABG O2 Content ABG Base Excess Hemoglobin Sodium Potassium Chloride Carbon Dioxide 19.5 L Anion Gap BUN Creatinine Estimated GFR 83 L POC Glucose Random Glucose 108 H Lactic Acid 3.7 H Calcium 7.3 L* D Prot Corrected Calcium 8.2 L Phosphorus Magnesium Iron TIBC % Saturation Ferritin Total Bilirubin AST 41 H Alkaline Phosphatase 296 H Troponin I B-Natriuretic Peptide Total Protein 5.5 L D Albumin 2.1 L D Vitamin B12 Urine Turbidity Urine Protein Urine Ketones Urine Urobilinogen Ur Leukocyte Esterase Urine RBC Urine WBC Urine WBC Clumps Urine Bacteria Urine Mucus Vancomycin Trough DELANEY Screen DELANEY Titer SS-A Antibody SS-B Antibody SM/PROP CUTTER Antibody Anti-ds DNA Titer (Crith) Anti-ds DNA (Crithidia) MTS Gel Crossmatch 03/01/18 03/01/18 03/01/18 09:30 09:30 09:30 WBC RBC 3.15 L Hgb 9.5 L D Hct 28.6 L RDW 20.1 H Plt Count Neut % (Auto) 85.7 H Lymph % (Auto) 7.6 L Ritchie % (Auto) Neut # (Auto) 8.5 H Lymph # (Auto) 0.8 L Seg Neuts % (Manual) Band Neuts % (Manual) Lymphocytes % (Manual) Metamyelocytes % (Man) Plasma Cell % (Manual) Nucleated RBCs/100 WBC Toxic Granulation Dohle Bodies Platelet Estimate Platelet Morphology Ovalocytes Rouleaux Keratocytes PT APTT Fibrinogen D-Dimer Quant (PE/DVT) HCO3 Base Excess O2 Saturation ABG pH ABG pCO2 ABG pO2 ABG HCO3 ABG O2 Content ABG Base Excess Hemoglobin Sodium Potassium Chloride Carbon Dioxide Anion Gap BUN Creatinine Estimated GFR POC Glucose Random Glucose Lactic Acid Calcium Prot Corrected Calcium Phosphorus Magnesium Iron TIBC % Saturation Ferritin Total Bilirubin AST Alkaline Phosphatase Troponin I 0.07 H B-Natriuretic Peptide 189 H Total Protein Albumin Vitamin B12 Urine Turbidity Urine Protein Urine Ketones Urine Urobilinogen Ur Leukocyte Esterase Urine RBC Urine WBC Urine WBC Clumps Urine Bacteria Urine Mucus Vancomycin Trough DELANEY Screen DELANEY Titer SS-A Antibody SS-B Antibody SM/PROP CUTTER Antibody Anti-ds DNA Titer (Crith) Anti-ds DNA (Crithidia) MTS Gel Crossmatch 03/01/18 03/01/18 03/01/18 10:00 14:00 15:00 WBC RBC Hgb 9.8 L Hct 30.1 L RDW Plt Count Neut % (Auto) Lymph % (Auto) Ritchie % (Auto) Neut # (Auto) Lymph # (Auto) Seg Neuts % (Manual) Band Neuts % (Manual) Lymphocytes % (Manual) Metamyelocytes % (Man) Plasma Cell % (Manual) Nucleated RBCs/100 WBC Toxic Granulation Dohle Bodies Platelet Estimate Platelet Morphology Ovalocytes Rouleaux Keratocytes PT APTT Fibrinogen D-Dimer Quant (PE/DVT) HCO3 Base Excess O2 Saturation ABG pH ABG pCO2 ABG pO2 ABG HCO3 ABG O2 Content ABG Base Excess Hemoglobin Sodium Potassium Chloride Carbon Dioxide Anion Gap BUN Creatinine Estimated GFR POC Glucose Random Glucose Lactic Acid Calcium Prot Corrected Calcium Phosphorus Magnesium Iron TIBC % Saturation Ferritin Total Bilirubin AST Alkaline Phosphatase Troponin I 0.09 H B-Natriuretic Peptide Total Protein Albumin Vitamin B12 Urine Turbidity CLOUDY H Urine Protein 30 H Urine Ketones Urine Urobilinogen Ur Leukocyte Esterase LARGE H Urine RBC 4 H Urine WBC Urine WBC Clumps MOD H Urine Bacteria MANY H Urine Mucus FEW H Vancomycin Trough DELANEY Screen DELANEY Titer SS-A Antibody SS-B Antibody SM/PROP CUTTER Antibody Anti-ds DNA Titer (Crith) Anti-ds DNA (Crithidia) MTS Gel Crossmatch 03/01/18 03/02/18 03/02/18 16:19 04:45 04:45 WBC RBC 2.72 L Hgb 8.3 L Hct 25.0 L RDW 21.1 H Plt Count 102 L D Neut % (Auto) Lymph % (Auto) Ritchie % (Auto) Neut # (Auto) Lymph # (Auto) Seg Neuts % (Manual) Band Neuts % (Manual) Lymphocytes % (Manual) Metamyelocytes % (Man) Plasma Cell % (Manual) Nucleated RBCs/100 WBC Toxic Granulation Dohle Bodies Platelet Estimate Platelet Morphology Ovalocytes Rouleaux Keratocytes PT APTT Fibrinogen D-Dimer Quant (PE/DVT) HCO3 Base Excess O2 Saturation ABG pH ABG pCO2 ABG pO2 ABG HCO3 ABG O2 Content ABG Base Excess Hemoglobin Sodium 146 H Potassium 3.3 L D Chloride 116 H D Carbon Dioxide 15.9 L Anion Gap BUN Creatinine 0.45 L Estimated GFR POC Glucose Random Glucose 72 L Lactic Acid 3.0 H Calcium 6.8 L* Prot Corrected Calcium 7.7 L Phosphorus Magnesium Iron TIBC % Saturation Ferritin Total Bilirubin 1.1 H AST 43 H Alkaline Phosphatase 303 H Troponin I 0.12 H B-Natriuretic Peptide Total Protein 5.3 L Albumin 2.3 L Vitamin B12 Urine Turbidity Urine Protein Urine Ketones Urine Urobilinogen Ur Leukocyte Esterase Urine RBC Urine WBC Urine WBC Clumps Urine Bacteria Urine Mucus Vancomycin Trough DELANEY Screen DELANEY Titer SS-A Antibody SS-B Antibody SM/PROP CUTTER Antibody Anti-ds DNA Titer (Crith) Anti-ds DNA (Crithidia) MTS Gel Crossmatch 03/03/18 03/03/18 03/03/18 06:21 06:21 18:00 WBC RBC 2.62 L Hgb 8.0 L Hct 24.4 L RDW 21.7 H Plt Count 49 L D Neut % (Auto) Lymph % (Auto) Ritchie % (Auto) Neut # (Auto) Lymph # (Auto) Seg Neuts % (Manual) Band Neuts % (Manual) Lymphocytes % (Manual) Metamyelocytes % (Man) Plasma Cell % (Manual) Nucleated RBCs/100 WBC Toxic Granulation Dohle Bodies Platelet Estimate Platelet Morphology Ovalocytes Rouleaux Keratocytes PT APTT Fibrinogen D-Dimer Quant (PE/DVT) HCO3 Base Excess O2 Saturation ABG pH ABG pCO2 ABG pO2 ABG HCO3 ABG O2 Content ABG Base Excess Hemoglobin Sodium 150 H Potassium 2.6 L* 3.1 L Chloride 121 H Carbon Dioxide 13.4 L Anion Gap 16 H BUN Creatinine 0.34 L Estimated GFR POC Glucose Random Glucose Lactic Acid Calcium 6.6 L* Prot Corrected Calcium 7.5 L Phosphorus 1.8 L D Magnesium Iron TIBC % Saturation Ferritin Total Bilirubin 1.3 H AST 58 H Alkaline Phosphatase 255 H Troponin I B-Natriuretic Peptide Total Protein 5.2 L Albumin 1.8 L Vitamin B12 Urine Turbidity Urine Protein Urine Ketones Urine Urobilinogen Ur Leukocyte Esterase Urine RBC Urine WBC Urine WBC Clumps Urine Bacteria Urine Mucus Vancomycin Trough DELANEY Screen DELANEY Titer SS-A Antibody SS-B Antibody SM/PROP CUTTER Antibody Anti-ds DNA Titer (Crith) Anti-ds DNA (Crithidia) MTS Gel Crossmatch 03/04/18 03/04/18 03/04/18 03:50 03:50 09:45 WBC RBC 2.60 L Hgb 7.9 L Hct 24.2 L RDW 22.6 H Plt Count 47 L Neut % (Auto) Lymph % (Auto) Ritchie % (Auto) Neut # (Auto) Lymph # (Auto) Seg Neuts % (Manual) Band Neuts % (Manual) Lymphocytes % (Manual) Metamyelocytes % (Man) Plasma Cell % (Manual) Nucleated RBCs/100 WBC Toxic Granulation Dohle Bodies Platelet Estimate Platelet Morphology Ovalocytes Rouleaux Keratocytes PT APTT Fibrinogen D-Dimer Quant (PE/DVT) HCO3 13 L* Base Excess -10.8 L O2 Saturation ABG pH ABG pCO2 22 L* ABG pO2 ABG HCO3 ABG O2 Content 11.5 L ABG Base Excess Hemoglobin 8.9 L Sodium 150 H Potassium Chloride 124 H Carbon Dioxide 14.4 L Anion Gap BUN Creatinine 0.30 L Estimated GFR POC Glucose Random Glucose Lactic Acid Calcium 6.7 L* Prot Corrected Calcium 7.8 L Phosphorus Magnesium Iron TIBC % Saturation Ferritin Total Bilirubin AST Alkaline Phosphatase 278 H Troponin I B-Natriuretic Peptide Total Protein 5.0 L Albumin 1.7 L Vitamin B12 Urine Turbidity Urine Protein Urine Ketones Urine Urobilinogen Ur Leukocyte Esterase Urine RBC Urine WBC Urine WBC Clumps Urine Bacteria Urine Mucus Vancomycin Trough DELANEY Screen DELANEY Titer SS-A Antibody SS-B Antibody SM/PROP CUTTER Antibody Anti-ds DNA Titer (Crith) Anti-ds DNA (Crithidia) MTS Gel Crossmatch 03/04/18 03/04/18 03/05/18 11:47 14:18 05:10 WBC 3.0 L RBC 2.46 L Hgb 7.5 L Hct 22.9 L RDW 22.1 H Plt Count 34 L Neut % (Auto) Lymph % (Auto) Ritchie % (Auto) Neut # (Auto) Lymph # (Auto) Seg Neuts % (Manual) Band Neuts % (Manual) Lymphocytes % (Manual) Metamyelocytes % (Man) Plasma Cell % (Manual) Nucleated RBCs/100 WBC Toxic Granulation Dohle Bodies Platelet Estimate Platelet Morphology Ovalocytes Rouleaux Keratocytes PT APTT Fibrinogen D-Dimer Quant (PE/DVT) HCO3 19 L 19 L Base Excess -5.2 L -4.9 L O2 Saturation 84 L* ABG pH 7.43 H ABG pCO2 32 L 29 L ABG pO2 56 L* 452 H ABG HCO3 ABG O2 Content 9.6 L ABG Base Excess Hemoglobin 8.1 L 10.1 L Sodium Potassium Chloride Carbon Dioxide Anion Gap BUN Creatinine Estimated GFR POC Glucose Random Glucose Lactic Acid Calcium Prot Corrected Calcium Phosphorus Magnesium Iron TIBC % Saturation Ferritin Total Bilirubin AST Alkaline Phosphatase Troponin I B-Natriuretic Peptide Total Protein Albumin Vitamin B12 Urine Turbidity Urine Protein Urine Ketones Urine Urobilinogen Ur Leukocyte Esterase Urine RBC Urine WBC Urine WBC Clumps Urine Bacteria Urine Mucus Vancomycin Trough DELANEY Screen DELANEY Titer SS-A Antibody SS-B Antibody SM/PROP CUTTER Antibody Anti-ds DNA Titer (Crith) Anti-ds DNA (Crithidia) MTS Gel Crossmatch 03/05/18 03/05/18 03/05/18 05:10 11:51 12:55 WBC RBC Hgb Hct RDW Plt Count Neut % (Auto) Lymph % (Auto) Ritchie % (Auto) Neut # (Auto) Lymph # (Auto) Seg Neuts % (Manual) Band Neuts % (Manual) Lymphocytes % (Manual) Metamyelocytes % (Man) Plasma Cell % (Manual) Nucleated RBCs/100 WBC Toxic Granulation Dohle Bodies Platelet Estimate Platelet Morphology Ovalocytes Rouleaux Keratocytes PT APTT Fibrinogen 392 H D-Dimer Quant (PE/DVT) 15.15 H HCO3 Base Excess O2 Saturation ABG pH ABG pCO2 ABG pO2 ABG HCO3 ABG O2 Content ABG Base Excess Hemoglobin Sodium 149 H Potassium 3.2 L Chloride 116 H Carbon Dioxide 20.9 L Anion Gap BUN Creatinine 0.34 L Estimated GFR POC Glucose 125 H Random Glucose 183 H Lactic Acid Calcium 6.3 L* Prot Corrected Calcium 7.4 L* Phosphorus 1.0 L Magnesium 2.7 H Iron TIBC % Saturation Ferritin Total Bilirubin AST Alkaline Phosphatase 237 H Troponin I B-Natriuretic Peptide Total Protein 4.8 L Albumin 1.8 L Vitamin B12 Urine Turbidity Urine Protein Urine Ketones Urine Urobilinogen Ur Leukocyte Esterase Urine RBC Urine WBC Urine WBC Clumps Urine Bacteria Urine Mucus Vancomycin Trough DELANEY Screen DELANEY Titer SS-A Antibody SS-B Antibody SM/PROP CUTTER Antibody Anti-ds DNA Titer (Crith) Anti-ds DNA (Crithidia) MTS Gel Crossmatch 03/05/18 03/05/18 03/06/18 18:37 21:55 01:06 WBC RBC Hgb Hct RDW Plt Count Neut % (Auto) Lymph % (Auto) Ritchie % (Auto) Neut # (Auto) Lymph # (Auto) Seg Neuts % (Manual) Band Neuts % (Manual) Lymphocytes % (Manual) Metamyelocytes % (Man) Plasma Cell % (Manual) Nucleated RBCs/100 WBC Toxic Granulation Dohle Bodies Platelet Estimate Platelet Morphology Ovalocytes Rouleaux Keratocytes PT APTT Fibrinogen D-Dimer Quant (PE/DVT) HCO3 Base Excess O2 Saturation ABG pH ABG pCO2 ABG pO2 ABG HCO3 ABG O2 Content ABG Base Excess Hemoglobin Sodium Potassium 3.3 L Chloride Carbon Dioxide Anion Gap BUN Creatinine Estimated GFR POC Glucose 126 H 133 H Random Glucose Lactic Acid Calcium Prot Corrected Calcium Phosphorus 1.7 L Magnesium Iron TIBC % Saturation Ferritin Total Bilirubin AST Alkaline Phosphatase Troponin I B-Natriuretic Peptide Total Protein Albumin Vitamin B12 Urine Turbidity Urine Protein Urine Ketones Urine Urobilinogen Ur Leukocyte Esterase Urine RBC Urine WBC Urine WBC Clumps Urine Bacteria Urine Mucus Vancomycin Trough DELANEY Screen DELANYE Titer SS-A Antibody SS-B Antibody SM/PROP CUTTER Antibody Anti-ds DNA Titer ([facility]) Anti-ds DNA (Crithidia) MTS Gel Crossmatch 03/06/18 03/06/18 03/06/18 04:55 05:28 05:28 WBC 2.4 L RBC 2.22 L Hgb 6.7 L* Hct 20.3 L* RDW 21.0 H Plt Count 28 L Neut % (Auto) Lymph % (Auto) Ritchie % (Auto) Neut # (Auto) Lymph # (Auto) Seg Neuts % (Manual) Band Neuts % (Manual) Lymphocytes % (Manual) Metamyelocytes % (Man) Plasma Cell % (Manual) Nucleated RBCs/100 WBC Toxic Granulation Dohle Bodies Platelet Estimate Platelet Morphology Ovalocytes Rouleaux Keratocytes PT APTT Fibrinogen D-Dimer Quant (PE/DVT) HCO3 Base Excess O2 Saturation ABG pH ABG pCO2 ABG pO2 ABG HCO3 ABG O2 Content ABG Base Excess Hemoglobin Sodium Potassium Chloride 111 H Carbon Dioxide Anion Gap BUN Creatinine 0.28 L Estimated GFR POC Glucose 142 H Random Glucose 152 H Lactic Acid Calcium 6.2 L* Prot Corrected Calcium 7.5 L Phosphorus Magnesium Iron TIBC % Saturation Ferritin Total Bilirubin 1.1 H AST Alkaline Phosphatase 257 H Troponin I B-Natriuretic Peptide Total Protein 4.4 L Albumin 1.5 L Vitamin B12 Urine Turbidity Urine Protein Urine Ketones Urine Urobilinogen Ur Leukocyte Esterase Urine RBC Urine WBC Urine WBC Clumps Urine Bacteria Urine Mucus Vancomycin Trough DELANEY Screen DELANEY Titer SS-A Antibody SS-B Antibody SM/PROP CUTTER Antibody Anti-ds DNA Titer (Crith) Anti-ds DNA (Crithidia) MTS Gel Crossmatch 03/06/18 03/06/18 03/06/18 07:41 08:06 17:45 WBC RBC Hgb 10.4 L D Hct 30.6 L RDW Plt Count Neut % (Auto) Lymph % (Auto) [place] % (Auto) Neut # (Auto) Lymph # (Auto) Seg Neuts % (Manual) Band Neuts % (Manual) Lymphocytes % (Manual) Metamyelocytes % (Man) Plasma Cell % (Manual) Nucleated RBCs/100 WBC Toxic Granulation Dohle Bodies Platelet Estimate Platelet Morphology Ovalocytes Rouleaux Keratocytes PT APTT Fibrinogen D-Dimer Quant (PE/DVT) HCO3 Base Excess O2 Saturation ABG pH ABG pCO2 ABG pO2 ABG HCO3 ABG O2 Content ABG Base Excess Hemoglobin Sodium Potassium Chloride Carbon Dioxide Anion Gap BUN Creatinine Estimated GFR POC Glucose 126 H Random Glucose Lactic Acid Calcium Prot Corrected Calcium Phosphorus Magnesium Iron TIBC % Saturation Ferritin Total Bilirubin AST Alkaline Phosphatase Troponin I B-Natriuretic Peptide Total Protein Albumin Vitamin B12 Urine Turbidity Urine Protein Urine Ketones Urine Urobilinogen Ur Leukocyte Esterase Urine RBC Urine WBC Urine WBC Clumps Urine Bacteria Urine Mucus Vancomycin Trough DELANEY Screen DELANEY Titer SS-A Antibody SS-B Antibody SM/PROP CUTTER Antibody Anti-ds DNA Titer (Crith) Anti-ds DNA (Crithidia) MTS Gel Crossmatch See Detail 03/07/18 03/07/18 03/07/18 04:05 04:05 09:15 WBC RBC 3.38 L 3.35 L Hgb 10.7 L 10.6 L Hct 30.8 L 30.8 L RDW 17.9 H D 18.2 H Plt Count 34 L 22 L D Neut % (Auto) 90.6 H 89.4 H Lymph % (Auto) 6.9 L 8.1 L [place] % (Auto) Neut # (Auto) Lymph # (Auto) 0.3 L 0.4 L Seg Neuts % (Manual) 81 H Band Neuts % (Manual) 17 H 26 H Lymphocytes % (Manual) 1 L 3 L Metamyelocytes % (Man) Plasma Cell % (Manual) Nucleated RBCs/100 WBC Toxic Granulation 1+ H Dohle Bodies Present H Platelet Estimate Low L Low L Platelet Morphology Enlarged H Enlarged H Ovalocytes 1+ H 1+ H Rouleaux Keratocytes Occ H PT APTT Fibrinogen D-Dimer Quant (PE/DVT) HCO3 Base Excess O2 Saturation ABG pH ABG pCO2 ABG pO2 ABG HCO3 ABG O2 Content ABG Base Excess Hemoglobin Sodium Potassium 3.2 L Chloride 111 H Carbon Dioxide Anion Gap BUN Creatinine 0.27 L Estimated GFR POC Glucose Random Glucose 112 H Lactic Acid Calcium 6.3 L* Prot Corrected Calcium 7.6 L Phosphorus 1.9 L Magnesium Iron TIBC % Saturation Ferritin Total Bilirubin AST Alkaline Phosphatase 247 H Troponin I B-Natriuretic Peptide Total Protein 4.5 L Albumin 1.5 L Vitamin B12 Urine Turbidity Urine Protein Urine Ketones Urine Urobilinogen Ur Leukocyte Esterase Urine RBC Urine WBC Urine WBC Clumps Urine Bacteria Urine Mucus Vancomycin Trough DELANEY Screen DELANEY Titer SS-A Antibody SS-B Antibody SM/PROP CUTTER Antibody Anti-ds DNA Titer (Crith) Anti-ds DNA (Crithidia) MTS Gel Crossmatch 03/07/18 03/07/18 03/07/18 09:15 09:41 16:49 WBC RBC Hgb Hct RDW Plt Count Neut % (Auto) Lymph % (Auto) [place] % (Auto) Neut # (Auto) Lymph # (Auto) Seg Neuts % (Manual) Band Neuts % (Manual) Lymphocytes % (Manual) Metamyelocytes % (Man) Plasma Cell % (Manual) Nucleated RBCs/100 WBC Toxic Granulation Dohle Bodies Platelet Estimate Platelet Morphology Ovalocytes Rouleaux Keratocytes PT APTT Fibrinogen D-Dimer Quant (PE/DVT) HCO3 Base Excess O2 Saturation ABG pH ABG pCO2 ABG pO2 ABG HCO3 ABG O2 Content ABG Base Excess Hemoglobin Sodium Potassium 3.3 L Chloride 112 H Carbon Dioxide 19.1 L Anion Gap BUN Creatinine 0.26 L Estimated GFR POC Glucose 129 H 152 H Random Glucose Lactic Acid Calcium 6.7 L* Prot Corrected Calcium 8.1 L Phosphorus 2.0 L Magnesium Iron TIBC % Saturation Ferritin Total Bilirubin 1.1 H AST Alkaline Phosphatase 248 H Troponin I B-Natriuretic Peptide Total Protein 4.5 L Albumin 1.5 L Vitamin B12 Urine Turbidity Urine Protein Urine Ketones Urine Urobilinogen Ur Leukocyte Esterase Urine RBC Urine WBC Urine WBC Clumps Urine Bacteria Urine Mucus Vancomycin Trough DELANEY Screen DELANEY Titer SS-A Antibody SS-B Antibody SM/PROP CUTTER Antibody Anti-ds DNA Titer (Crith) Anti-ds DNA (Crithidia) MTS Gel Crossmatch 03/07/18 03/08/18 03/08/18 23:11 04:12 04:12 WBC RBC 3.23 L Hgb 10.2 L Hct 29.6 L RDW 17.4 H Plt Count 26 L Neut % (Auto) Lymph % (Auto) [place] % (Auto) Neut # (Auto) Lymph # (Auto) Seg Neuts % (Manual) Band Neuts % (Manual) Lymphocytes % (Manual) Metamyelocytes % (Man) Plasma Cell % (Manual) Nucleated RBCs/100 WBC Toxic Granulation Dohle Bodies Platelet Estimate Platelet Morphology Ovalocytes Rouleaux Keratocytes PT APTT Fibrinogen D-Dimer Quant (PE/DVT) HCO3 Base Excess O2 Saturation ABG pH ABG pCO2 ABG pO2 ABG HCO3 ABG O2 Content ABG Base Excess Hemoglobin Sodium Potassium Chloride 113 H Carbon Dioxide 19.9 L Anion Gap BUN Creatinine 0.25 L Estimated GFR POC Glucose 136 H Random Glucose 126 H Lactic Acid Calcium 6.9 L* Prot Corrected Calcium Phosphorus Magnesium Iron TIBC % Saturation Ferritin Total Bilirubin AST Alkaline Phosphatase 276 H Troponin I B-Natriuretic Peptide Total Protein 4.2 L Albumin 1.3 L Vitamin B12 Urine Turbidity Urine Protein Urine Ketones Urine Urobilinogen Ur Leukocyte Esterase Urine RBC Urine WBC Urine WBC Clumps Urine Bacteria Urine Mucus Vancomycin Trough DELANEY Screen DELANEY Titer SS-A Antibody SS-B Antibody SM/PROP CUTTER Antibody Anti-ds DNA Titer (Crith) Anti-ds DNA (Crithidia) MTS Gel Crossmatch 03/08/18 03/08/18 03/08/18 10:40 11:09 11:09 WBC RBC 3.37 L Hgb 10.7 L Hct 31.3 L RDW 17.6 H Plt Count 31 L Neut % (Auto) 91.5 H Lymph % (Auto) 5.2 L [place] % (Auto) Neut # (Auto) Lymph # (Auto) 0.3 L Seg Neuts % (Manual) Band Neuts % (Manual) 35 H Lymphocytes % (Manual) 5 L Metamyelocytes % (Man) Plasma Cell % (Manual) Nucleated RBCs/100 WBC Toxic Granulation Dohle Bodies Present H Platelet Estimate Low L Platelet Morphology Ovalocytes 1+ H Rouleaux Keratocytes PT APTT Fibrinogen 492 H D-Dimer Quant (PE/DVT) HCO3 Base Excess O2 Saturation ABG pH 7.53 H* ABG pCO2 23 L* ABG pO2 ABG HCO3 19 L ABG O2 Content ABG Base Excess -3.3 L Hemoglobin 10.7 L Sodium Potassium Chloride Carbon Dioxide Anion Gap BUN Creatinine Estimated GFR POC Glucose Random Glucose Lactic Acid Calcium Prot Corrected Calcium Phosphorus Magnesium Iron TIBC % Saturation Ferritin Total Bilirubin AST Alkaline Phosphatase Troponin I B-Natriuretic Peptide Total Protein Albumin Vitamin B12 Urine Turbidity Urine Protein Urine Ketones Urine Urobilinogen Ur Leukocyte Esterase Urine RBC Urine WBC Urine WBC Clumps Urine Bacteria Urine Mucus Vancomycin Trough DELANEY Screen DELANEY Titer SS-A Antibody SS-B Antibody SM/PROP CUTTER Antibody Anti-ds DNA Titer (Crith) Anti-ds DNA (Crithidia) MTS Gel Crossmatch 03/08/18 03/08/18 03/08/18 11:09 11:51 17:55 WBC RBC Hgb Hct RDW Plt Count Neut % (Auto) Lymph % (Auto) [place] % (Auto) Neut # (Auto) Lymph # (Auto) Seg Neuts % (Manual) Band Neuts % (Manual) Lymphocytes % (Manual) Metamyelocytes % (Man) Plasma Cell % (Manual) Nucleated RBCs/100 WBC Toxic Granulation Dohle Bodies Platelet Estimate Platelet Morphology Ovalocytes Rouleaux Keratocytes PT APTT Fibrinogen D-Dimer Quant (PE/DVT) HCO3 Base Excess O2 Saturation ABG pH ABG pCO2 ABG pO2 ABG HCO3 ABG O2 Content ABG Base Excess Hemoglobin Sodium Potassium Chloride 112 H Carbon Dioxide 19.4 L Anion Gap BUN Creatinine 0.25 L Estimated GFR POC Glucose 113 H Random Glucose 120 H Lactic Acid Calcium 7.5 L Prot Corrected Calcium Phosphorus Magnesium Iron TIBC % Saturation Ferritin Total Bilirubin AST Alkaline Phosphatase 301 H Troponin I B-Natriuretic Peptide Total Protein 4.6 L Albumin 1.4 L Vitamin B12 Urine Turbidity Urine Protein 30 H Urine Ketones Trace H Urine Urobilinogen Ur Leukocyte Esterase Urine RBC Urine WBC 12 H Urine WBC Clumps Urine Bacteria Rare H Urine Mucus Few H Vancomycin Trough DELANEY Screen DELANEY Titer SS-A Antibody SS-B Antibody SM/PROP CUTTER Antibody Anti-ds DNA Titer (Crith) Anti-ds DNA (Crithidia) MTS Gel Crossmatch 03/08/18 03/08/18 03/08/18 20:00 20:00 20:00 WBC RBC Hgb Hct RDW Plt Count Neut % (Auto) Lymph % (Auto) [place] % (Auto) Neut # (Auto) Lymph # (Auto) Seg Neuts % (Manual) Band Neuts % (Manual) Lymphocytes % (Manual) Metamyelocytes % (Man) Plasma Cell % (Manual) Nucleated RBCs/100 WBC Toxic Granulation Dohle Bodies Platelet Estimate Platelet Morphology Ovalocytes Rouleaux Keratocytes PT APTT Fibrinogen D-Dimer Quant (PE/DVT) HCO3 Base Excess O2 Saturation ABG pH ABG pCO2 ABG pO2 ABG HCO3 ABG O2 Content ABG Base Excess Hemoglobin Sodium Potassium Chloride Carbon Dioxide Anion Gap BUN Creatinine Estimated GFR POC Glucose Random Glucose Lactic Acid Calcium Prot Corrected Calcium Phosphorus Magnesium Iron TIBC % Saturation Ferritin 1854 H Total Bilirubin AST Alkaline Phosphatase Troponin I B-Natriuretic Peptide Total Protein Albumin Vitamin B12 Greater than 2000 H Urine Turbidity Urine Protein Urine Ketones Urine Urobilinogen Ur Leukocyte Esterase Urine RBC Urine WBC Urine WBC Clumps Urine Bacteria Urine Mucus Vancomycin Trough DELANEY Screen Positive A DELANEY Titer >=1:1280 A SS-A Antibody >8.0 pos H SS-B Antibody >8.0 pos H SM/PROP CUTTER Antibody >8.0 pos H Anti-ds DNA Titer (Crith) 1:320 H Anti-ds DNA (Crithidia) Positive A MTS Gel Crossmatch 03/09/18 03/09/18 03/09/18 04:33 04:33 16:45 WBC RBC 3.38 L Hgb 10.7 L Hct 31.6 L RDW 18.0 H Plt Count 34 L Neut % (Auto) Lymph % (Auto) [place] % (Auto) Neut # (Auto) Lymph # (Auto) Seg Neuts % (Manual) Band Neuts % (Manual) Lymphocytes % (Manual) Metamyelocytes % (Man) Plasma Cell % (Manual) Nucleated RBCs/100 WBC Toxic Granulation Dohle Bodies Platelet Estimate Platelet Morphology Ovalocytes Rouleaux Keratocytes PT APTT Fibrinogen D-Dimer Quant (PE/DVT) HCO3 Base Excess O2 Saturation ABG pH ABG pCO2 ABG pO2 ABG HCO3 ABG O2 Content ABG Base Excess Hemoglobin Sodium Potassium Chloride 112 H Carbon Dioxide Anion Gap BUN Creatinine 0.17 L Estimated GFR POC Glucose Random Glucose 111 H Lactic Acid Calcium 7.2 L* Prot Corrected Calcium Phosphorus Magnesium Iron TIBC % Saturation Ferritin Total Bilirubin AST Alkaline Phosphatase 352 H Troponin I B-Natriuretic Peptide Total Protein 4.8 L Albumin 1.4 L Vitamin B12 Urine Turbidity Urine Protein Urine Ketones Urine Urobilinogen 2.0 H Ur Leukocyte Esterase Urine RBC Urine WBC Urine WBC Clumps Urine Bacteria Urine Mucus Few H Vancomycin Trough DELANEY Screen DELANEY Titer SS-A Antibody SS-B Antibody SM/PROP CUTTER Antibody Anti-ds DNA Titer (Crith) Anti-ds DNA (Crithidia) MTS Gel Crossmatch 03/09/18 03/09/18 03/10/18 18:37 23:54 05:15 WBC RBC 3.53 L Hgb 11.0 L Hct 32.4 L RDW 17.6 H Plt Count 46 L D Neut % (Auto) 79.4 H Lymph % (Auto) [place] % (Auto) Neut # (Auto) Lymph # (Auto) 0.6 L Seg Neuts % (Manual) Band Neuts % (Manual) 26 H Lymphocytes % (Manual) 1 L Metamyelocytes % (Man) Plasma Cell % (Manual) 1 H Nucleated RBCs/100 WBC Toxic Granulation Dohle Bodies Present H Platelet Estimate Low L Platelet Morphology Ovalocytes Rouleaux Keratocytes PT APTT Fibrinogen D-Dimer Quant (PE/DVT) HCO3 Base Excess O2 Saturation ABG pH ABG pCO2 ABG pO2 ABG HCO3 ABG O2 Content ABG Base Excess Hemoglobin Sodium Potassium Chloride Carbon Dioxide Anion Gap BUN Creatinine Estimated GFR POC Glucose 141 H 119 H Random Glucose Lactic Acid Calcium Prot Corrected Calcium Phosphorus Magnesium Iron TIBC % Saturation Ferritin Total Bilirubin AST Alkaline Phosphatase Troponin I B-Natriuretic Peptide Total Protein Albumin Vitamin B12 Urine Turbidity Urine Protein Urine Ketones Urine Urobilinogen Ur Leukocyte Esterase Urine RBC Urine WBC Urine WBC Clumps Urine Bacteria Urine Mucus Vancomycin Trough DELANEY Screen DELANEY Titer SS-A Antibody SS-B Antibody SM/PROP CUTTER Antibody Anti-ds DNA Titer (Crith) Anti-ds DNA (Crithidia) MTS Gel Crossmatch 03/10/18 03/10/18 03/10/18 05:15 12:38 18:05 WBC RBC Hgb Hct RDW Plt Count Neut % (Auto) Lymph % (Auto) [place] % (Auto) Neut # (Auto) Lymph # (Auto) Seg Neuts % (Manual) Band Neuts % (Manual) Lymphocytes % (Manual) Metamyelocytes % (Man) Plasma Cell % (Manual) Nucleated RBCs/100 WBC Toxic Granulation Dohle Bodies Platelet Estimate Platelet Morphology Ovalocytes Rouleaux Keratocytes PT APTT Fibrinogen D-Dimer Quant (PE/DVT) HCO3 Base Excess O2 Saturation ABG pH ABG pCO2 ABG pO2 ABG HCO3 ABG O2 Content ABG Base Excess Hemoglobin Sodium Potassium 3.4 L Chloride 108 H Carbon Dioxide Anion Gap BUN Creatinine 0.27 L Estimated GFR POC Glucose 131 H 132 H Random Glucose 124 H Lactic Acid Calcium 7.5 L Prot Corrected Calcium Phosphorus Magnesium Iron TIBC % Saturation Ferritin Total Bilirubin AST 53 H Alkaline Phosphatase 400 H Troponin I B-Natriuretic Peptide Total Protein 5.1 L Albumin 1.5 L Vitamin B12 Urine Turbidity Urine Protein Urine Ketones Urine Urobilinogen Ur Leukocyte Esterase Urine RBC Urine WBC Urine WBC Clumps Urine Bacteria Urine Mucus Vancomycin Trough DELANEY Screen DELANEY Titer SS-A Antibody SS-B Antibody SM/PROP CUTTER Antibody Anti-ds DNA Titer (Crith) Anti-ds DNA (Crithidia) MTS Gel Crossmatch 03/11/18 03/11/18 03/11/18 00:30 05:08 05:08 WBC 3.7 L RBC 3.04 L Hgb 9.6 L Hct 28.0 L RDW Plt Count 64 L D Neut % (Auto) 74.8 H Lymph % (Auto) [place] % (Auto) Neut # (Auto) Lymph # (Auto) 0.7 L Seg Neuts % (Manual) 76 H Band Neuts % (Manual) 10 H Lymphocytes % (Manual) Metamyelocytes % (Man) Plasma Cell % (Manual) Nucleated RBCs/100 WBC Toxic Granulation Dohle Bodies Platelet Estimate Low L Platelet Morphology Ovalocytes Rouleaux Keratocytes PT APTT Fibrinogen D-Dimer Quant (PE/DVT) HCO3 Base Excess O2 Saturation ABG pH ABG pCO2 ABG pO2 ABG HCO3 ABG O2 Content ABG Base Excess Hemoglobin Sodium Potassium Chloride Carbon Dioxide Anion Gap BUN Creatinine Less than 0.15 L Estimated GFR POC Glucose 138 H Random Glucose 122 H Lactic Acid Calcium 7.3 L* Prot Corrected Calcium Phosphorus Magnesium Iron TIBC % Saturation Ferritin Total Bilirubin AST 60 H Alkaline Phosphatase 372 H Troponin I B-Natriuretic Peptide Total Protein 4.8 L Albumin 1.3 L Vitamin B12 Urine Turbidity Urine Protein Urine Ketones Urine Urobilinogen Ur Leukocyte Esterase Urine RBC Urine WBC Urine WBC Clumps Urine Bacteria Urine Mucus Vancomycin Trough DELANEY Screen DELANEY Titer SS-A Antibody SS-B Antibody SM/PROP CUTTER Antibody Anti-ds DNA Titer (Crith) Anti-ds DNA (Crithidia) MTS Gel Crossmatch 03/11/18 03/11/18 03/11/18 14:20 17:04 23:18 WBC RBC Hgb Hct RDW Plt Count Neut % (Auto) Lymph % (Auto) [place] % (Auto) Neut # (Auto) Lymph # (Auto) Seg Neuts % (Manual) Band Neuts % (Manual) Lymphocytes % (Manual) Metamyelocytes % (Man) Plasma Cell % (Manual) Nucleated RBCs/100 WBC Toxic Granulation Dohle Bodies Platelet Estimate Platelet Morphology Ovalocytes Rouleaux Keratocytes PT APTT Fibrinogen D-Dimer Quant (PE/DVT) HCO3 Base Excess O2 Saturation ABG pH 7.49 H 7.43 H 7.52 H* ABG pCO2 32 L 34 L 26 L ABG pO2 136 H 127 H ABG HCO3 21 L ABG O2 Content ABG Base Excess Hemoglobin 9.2 L 11.0 L 9.2 L Sodium Potassium Chloride Carbon Dioxide Anion Gap BUN Creatinine Estimated GFR POC Glucose Random Glucose Lactic Acid Calcium Prot Corrected Calcium Phosphorus Magnesium Iron TIBC % Saturation Ferritin Total Bilirubin AST Alkaline Phosphatase Troponin I B-Natriuretic Peptide Total Protein Albumin Vitamin B12 Urine Turbidity Urine Protein Urine Ketones Urine Urobilinogen Ur Leukocyte Esterase Urine RBC Urine WBC Urine WBC Clumps Urine Bacteria Urine Mucus Vancomycin Trough DELANEY Screen DELANEY Titer SS-A Antibody SS-B Antibody SM/PROP CUTTER Antibody Anti-ds DNA Titer (Crith) Anti-ds DNA (Crithidia) MTS Gel Crossmatch 03/12/18 03/12/18 03/12/18 04:17 04:47 11:57 WBC 2.5 L RBC 2.59 L Hgb 8.0 L Hct 23.9 L RDW Plt Count 69 L Neut % (Auto) Lymph % (Auto) [place] % (Auto) 8.2 H Neut # (Auto) 1.6 L Lymph # (Auto) 0.7 L Seg Neuts % (Manual) Band Neuts % (Manual) 13 H Lymphocytes % (Manual) Metamyelocytes % (Man) Plasma Cell % (Manual) Nucleated RBCs/100 WBC Toxic Granulation Dohle Bodies Platelet Estimate Low L Platelet Morphology Ovalocytes Rouleaux Present H Keratocytes PT APTT Fibrinogen D-Dimer Quant (PE/DVT) HCO3 Base Excess O2 Saturation ABG pH ABG pCO2 ABG pO2 ABG HCO3 ABG O2 Content ABG Base Excess Hemoglobin Sodium Potassium 3.2 L Chloride 108 H Carbon Dioxide 20.6 L Anion Gap BUN Creatinine Less than 0.15 L Estimated GFR POC Glucose 39 L* Random Glucose 64 L Lactic Acid Calcium 7.0 L* Prot Corrected Calcium Phosphorus Magnesium Iron TIBC % Saturation Ferritin Total Bilirubin AST 43 H Alkaline Phosphatase 272 H Troponin I B-Natriuretic Peptide Total Protein 4.4 L Albumin 1.2 L Vitamin B12 Urine Turbidity Urine Protein Urine Ketones Urine Urobilinogen Ur Leukocyte Esterase Urine RBC Urine WBC Urine WBC Clumps Urine Bacteria Urine Mucus Vancomycin Trough DELANEY Screen DELANEY Titer SS-A Antibody SS-B Antibody SM/PROP CUTTER Antibody Anti-ds DNA Titer (Crith) Anti-ds DNA (Crithidia) MTS Gel Crossmatch 03/12/18 03/12/18 03/12/18 12:00 17:22 17:24 WBC RBC Hgb Hct RDW Plt Count Neut % (Auto) Lymph % (Auto) [place] % (Auto) Neut # (Auto) Lymph # (Auto) Seg Neuts % (Manual) Band Neuts % (Manual) Lymphocytes % (Manual) Metamyelocytes % (Man) Plasma Cell % (Manual) Nucleated RBCs/100 WBC Toxic Granulation Dohle Bodies Platelet Estimate Platelet Morphology Ovalocytes Rouleaux Keratocytes PT APTT Fibrinogen D-Dimer Quant (PE/DVT) HCO3 Base Excess O2 Saturation ABG pH ABG pCO2 ABG pO2 ABG HCO3 ABG O2 Content ABG Base Excess Hemoglobin Sodium Potassium Chloride Carbon Dioxide Anion Gap BUN Creatinine Estimated GFR POC Glucose 52 L 39 L* 46 L* Random Glucose Lactic Acid Calcium Prot Corrected Calcium Phosphorus Magnesium Iron TIBC % Saturation Ferritin Total Bilirubin AST Alkaline Phosphatase Troponin I B-Natriuretic Peptide Total Protein Albumin Vitamin B12 Urine Turbidity Urine Protein Urine Ketones Urine Urobilinogen Ur Leukocyte Esterase Urine RBC Urine WBC Urine WBC Clumps Urine Bacteria Urine Mucus Vancomycin Trough DELANEY Screen DELANEY Titer SS-A Antibody SS-B Antibody SM/PROP CUTTER Antibody Anti-ds DNA Titer (Crith) Anti-ds DNA (Crithidia) MTS Gel Crossmatch 03/12/18 03/12/18 03/12/18 17:48 18:42 18:42 WBC RBC Hgb Hct RDW Plt Count Neut % (Auto) Lymph % (Auto) [place] % (Auto) Neut # (Auto) Lymph # (Auto) Seg Neuts % (Manual) Band Neuts % (Manual) Lymphocytes % (Manual) Metamyelocytes % (Man) Plasma Cell % (Manual) Nucleated RBCs/100 WBC Toxic Granulation Dohle Bodies Platelet Estimate Platelet Morphology Ovalocytes Rouleaux Keratocytes PT APTT Fibrinogen D-Dimer Quant (PE/DVT) HCO3 Base Excess O2 Saturation ABG pH ABG pCO2 ABG pO2 ABG HCO3 ABG O2 Content ABG Base Excess Hemoglobin Sodium Potassium Chloride 113 H Carbon Dioxide 20.4 L Anion Gap BUN Creatinine 0.20 L Estimated GFR POC Glucose 114 H Random Glucose Lactic Acid Calcium 6.8 L* Prot Corrected Calcium 8.4 L Phosphorus Magnesium Iron TIBC % Saturation Ferritin Total Bilirubin AST Alkaline Phosphatase Troponin I 0.09 H B-Natriuretic Peptide Total Protein 4.2 L Albumin Vitamin B12 Urine Turbidity Urine Protein Urine Ketones Urine Urobilinogen Ur Leukocyte Esterase Urine RBC Urine WBC Urine WBC Clumps Urine Bacteria Urine Mucus Vancomycin Trough DELANEY Screen DELANEY Titer SS-A Antibody SS-B Antibody SM/PROP CUTTER Antibody Anti-ds DNA Titer (Crith) Anti-ds DNA (Crithidia) [facility] Gel Crossmatch 03/13/18 03/13/18 03/13/18 05:20 05:20 05:20 WBC 3.1 L RBC 2.72 L Hgb 8.6 L Hct 25.3 L RDW Plt Count 94 L D Neut % (Auto) 75.1 H Lymph % (Auto) [place] % (Auto) Neut # (Auto) Lymph # (Auto) 0.6 L Seg Neuts % (Manual) Band Neuts % (Manual) 29 H Lymphocytes % (Manual) Metamyelocytes % (Man) Plasma Cell % (Manual) Nucleated RBCs/100 WBC Toxic Granulation Dohle Bodies Platelet Estimate Low L Platelet Morphology Ovalocytes Rouleaux Keratocytes PT APTT Fibrinogen D-Dimer Quant (PE/DVT) HCO3 Base Excess O2 Saturation ABG pH ABG pCO2 ABG pO2 ABG HCO3 ABG O2 Content ABG Base Excess Hemoglobin Sodium Potassium Chloride 113 H Carbon Dioxide 20.9 L Anion Gap BUN Creatinine Less than 0.15 L Estimated GFR POC Glucose Random Glucose 129 H Lactic Acid Calcium 7.7 L D Prot Corrected Calcium Phosphorus 2.4 L Magnesium 1.4 L Iron TIBC % Saturation Ferritin Total Bilirubin AST 42 H Alkaline Phosphatase 285 H Troponin I 0.08 H B-Natriuretic Peptide Total Protein 4.3 L Albumin 1.1 L Vitamin B12 Urine Turbidity Urine Protein Urine Ketones Urine Urobilinogen Ur Leukocyte Esterase Urine RBC Urine WBC Urine WBC Clumps Urine Bacteria Urine Mucus Vancomycin Trough 15.4 H DELANEY Screen DELANEY Titer SS-A Antibody SS-B Antibody SM/PROP CUTTER Antibody Anti-ds DNA Titer (Crith) Anti-ds DNA (Crithidia) [facility] Gel Crossmatch 03/13/18 03/13/18 03/13/18 07:55 12:07 15:37 WBC RBC Hgb Hct RDW Plt Count Neut % (Auto) Lymph % (Auto) [place] % (Auto) Neut # (Auto) Lymph # (Auto) Seg Neuts % (Manual) Band Neuts % (Manual) Lymphocytes % (Manual) Metamyelocytes % (Man) Plasma Cell % (Manual) Nucleated RBCs/100 WBC Toxic Granulation Dohle Bodies Platelet Estimate Platelet Morphology Ovalocytes Rouleaux Keratocytes PT APTT Fibrinogen D-Dimer Quant (PE/DVT) HCO3 Base Excess O2 Saturation ABG pH ABG pCO2 ABG pO2 ABG HCO3 ABG O2 Content ABG Base Excess Hemoglobin Sodium Potassium Chloride Carbon Dioxide Anion Gap BUN Creatinine Estimated GFR POC Glucose 143 H 122 H Random Glucose Lactic Acid Calcium Prot Corrected Calcium Phosphorus Magnesium 1.4 L Iron TIBC % Saturation Ferritin Total Bilirubin AST Alkaline Phosphatase Troponin I B-Natriuretic Peptide Total Protein Albumin Vitamin B12 Urine Turbidity Urine Protein Urine Ketones Urine Urobilinogen Ur Leukocyte Esterase Urine RBC Urine WBC Urine WBC Clumps Urine Bacteria Urine Mucus Vancomycin Trough DELANEY Screen DELANEY Titer SS-A Antibody SS-B Antibody SM/PROP CUTTER Antibody Anti-ds DNA Titer (Crith) Anti-ds DNA (Crithidia) MTS Gel Crossmatch 03/14/18 03/14/18 03/14/18 03:40 03:40 03:40 WBC 2.7 L RBC 2.46 L Hgb 7.8 L Hct 22.5 L RDW Plt Count 102 L Neut % (Auto) Lymph % (Auto) [place] % (Auto) Neut # (Auto) Lymph # (Auto) Seg Neuts % (Manual) Band Neuts % (Manual) Lymphocytes % (Manual) Metamyelocytes % (Man) Plasma Cell % (Manual) Nucleated RBCs/100 WBC Toxic Granulation Dohle Bodies Platelet Estimate Platelet Morphology Ovalocytes Rouleaux Keratocytes PT APTT Fibrinogen D-Dimer Quant (PE/DVT) HCO3 Base Excess O2 Saturation ABG pH ABG pCO2 ABG pO2 ABG HCO3 ABG O2 Content ABG Base Excess Hemoglobin Sodium Potassium Chloride 110 H Carbon Dioxide Anion Gap BUN 6 L Creatinine Less than 0.15 L Estimated GFR POC Glucose Random Glucose Lactic Acid Calcium 7.2 L* Prot Corrected Calcium Phosphorus Magnesium 1.3 L Iron TIBC % Saturation Ferritin Total Bilirubin AST Alkaline Phosphatase Troponin I B-Natriuretic Peptide Total Protein 4.2 L Albumin Vitamin B12 Urine Turbidity Urine Protein Urine Ketones Urine Urobilinogen Ur Leukocyte Esterase Urine RBC Urine WBC Urine WBC Clumps Urine Bacteria Urine Mucus Vancomycin Trough DELANEY Screen DELANEY Titer SS-A Antibody SS-B Antibody SM/PROP CUTTER Antibody Anti-ds DNA Titer (Crith) Anti-ds DNA (Crithidia) MTS Gel Crossmatch 03/15/18 03/15/18 03/15/18 03:35 03:35 05:25 WBC 3.3 L RBC 2.40 L Hgb 7.5 L Hct 22.2 L RDW Plt Count 134 L D Neut % (Auto) 73.1 H Lymph % (Auto) [place] % (Auto) Neut # (Auto) Lymph # (Auto) 0.7 L Seg Neuts % (Manual) Band Neuts % (Manual) Lymphocytes % (Manual) Metamyelocytes % (Man) Plasma Cell % (Manual) Nucleated RBCs/100 WBC Toxic Granulation Dohle Bodies Platelet Estimate Platelet Morphology Ovalocytes Rouleaux Keratocytes PT APTT Fibrinogen D-Dimer Quant (PE/DVT) HCO3 Base Excess O2 Saturation ABG pH ABG pCO2 ABG pO2 ABG HCO3 ABG O2 Content ABG Base Excess Hemoglobin Sodium Potassium 3.2 L Chloride 108 H Carbon Dioxide Anion Gap BUN 4 L Creatinine 0.18 L Estimated GFR POC Glucose 137 H Random Glucose Lactic Acid Calcium 7.3 L* Prot Corrected Calcium Phosphorus Magnesium Iron TIBC % Saturation Ferritin Total Bilirubin AST Alkaline Phosphatase 238 H Troponin I B-Natriuretic Peptide Total Protein 4.2 L Albumin 1.0 L Vitamin B12 Urine Turbidity Urine Protein Urine Ketones Urine Urobilinogen Ur Leukocyte Esterase Urine RBC Urine WBC Urine WBC Clumps Urine Bacteria Urine Mucus Vancomycin Trough DELANEY Screen DELANEY Titer SS-A Antibody SS-B Antibody SM/PROP CUTTER Antibody Anti-ds DNA Titer (Crith) Anti-ds DNA (Crithidia) MTS Gel Crossmatch 03/15/18 03/15/18 03/15/18 06:05 10:23 13:50 WBC RBC Hgb Hct RDW Plt Count Neut % (Auto) Lymph % (Auto) Ritchie % (Auto) Neut # (Auto) Lymph # (Auto) Seg Neuts % (Manual) Band Neuts % (Manual) Lymphocytes % (Manual) Metamyelocytes % (Man) Plasma Cell % (Manual) Nucleated RBCs/100 WBC Toxic Granulation Dohle Bodies Platelet Estimate Platelet Morphology Ovalocytes Rouleaux Keratocytes PT APTT Fibrinogen D-Dimer Quant (PE/DVT) HCO3 Base Excess O2 Saturation ABG pH ABG pCO2 ABG pO2 ABG HCO3 ABG O2 Content ABG Base Excess Hemoglobin Sodium Potassium Chloride Carbon Dioxide Anion Gap BUN Creatinine Estimated GFR POC Glucose 136 H 141 H Random Glucose Lactic Acid Calcium Prot Corrected Calcium Phosphorus Magnesium Iron TIBC % Saturation Ferritin Total Bilirubin AST Alkaline Phosphatase Troponin I B-Natriuretic Peptide Total Protein Albumin Vitamin B12 Urine Turbidity Urine Protein Urine Ketones Urine Urobilinogen Ur Leukocyte Esterase Urine RBC Urine WBC Urine WBC Clumps Urine Bacteria Urine Mucus Vancomycin Trough 15.4 H DELANEY Screen DELANEY Titer SS-A Antibody SS-B Antibody SM/PROP CUTTER Antibody Anti-ds DNA Titer (Crith) Anti-ds DNA (Crithidia) MTS Gel Crossmatch 03/15/18 03/16/18 03/16/18 21:07 00:32 03:45 WBC RBC Hgb Hct RDW Plt Count Neut % (Auto) Lymph % (Auto) Ritchie % (Auto) Neut # (Auto) Lymph # (Auto) Seg Neuts % (Manual) Band Neuts % (Manual) Lymphocytes % (Manual) Metamyelocytes % (Man) Plasma Cell % (Manual) Nucleated RBCs/100 WBC Toxic Granulation Dohle Bodies Platelet Estimate Platelet Morphology Ovalocytes Rouleaux Keratocytes PT APTT Fibrinogen D-Dimer Quant (PE/DVT) HCO3 Base Excess O2 Saturation ABG pH ABG pCO2 ABG pO2 ABG HCO3 ABG O2 Content ABG Base Excess Hemoglobin Sodium Potassium Chloride 109 H Carbon Dioxide Anion Gap BUN 4 L Creatinine 0.17 L Estimated GFR POC Glucose 139 H Random Glucose 128 H Lactic Acid Calcium 7.1 L* Prot Corrected Calcium Phosphorus Magnesium Iron 11 L TIBC 81 L % Saturation 13.5 L Ferritin 995 H Total Bilirubin AST Alkaline Phosphatase Troponin I B-Natriuretic Peptide Total Protein 4.3 L Albumin Vitamin B12 Urine Turbidity Urine Protein Urine Ketones Urine Urobilinogen Ur Leukocyte Esterase Urine RBC Urine WBC Urine WBC Clumps Urine Bacteria Urine Mucus Vancomycin Trough DELANEY Screen DELANEY Titer SS-A Antibody SS-B Antibody SM/PROP CUTTER Antibody Anti-ds DNA Titer (Crith) Anti-ds DNA (Crithidia) MTS Gel Crossmatch 03/16/18 03/16/18 03/16/18 05:23 12:26 15:28 WBC RBC Hgb Hct RDW Plt Count Neut % (Auto) Lymph % (Auto) Ritchie % (Auto) Neut # (Auto) Lymph # (Auto) Seg Neuts % (Manual) Band Neuts % (Manual) Lymphocytes % (Manual) Metamyelocytes % (Man) Plasma Cell % (Manual) Nucleated RBCs/100 WBC Toxic Granulation Dohle Bodies Platelet Estimate Platelet Morphology Ovalocytes Rouleaux Keratocytes PT APTT Fibrinogen D-Dimer Quant (PE/DVT) HCO3 Base Excess O2 Saturation ABG pH ABG pCO2 ABG pO2 ABG HCO3 ABG O2 Content ABG Base Excess Hemoglobin Sodium Potassium Chloride Carbon Dioxide Anion Gap BUN Creatinine Estimated GFR POC Glucose 145 H 128 H Random Glucose Lactic Acid Calcium Prot Corrected Calcium Phosphorus Magnesium Iron TIBC % Saturation Ferritin Total Bilirubin AST Alkaline Phosphatase Troponin I B-Natriuretic Peptide Total Protein Albumin Vitamin B12 Urine Turbidity Urine Protein Urine Ketones Urine Urobilinogen Ur Leukocyte Esterase Urine RBC Urine WBC 9 H Urine WBC Clumps Rare H Urine Bacteria Urine Mucus Few H Vancomycin Trough DELANEY Screen DELANEY Titer SS-A Antibody SS-B Antibody SM/PROP CUTTER Antibody Anti-ds DNA Titer (Crith) Anti-ds DNA (Crithidia) MTS Gel Crossmatch 03/17/18 03/17/18 03/17/18 03:20 03:20 04:15 WBC 2.4 L 3.2 L RBC 2.18 L 2.33 L Hgb 6.7 L* 7.1 L Hct 19.8 L* 21.1 L RDW Plt Count 148 L 146 L Neut % (Auto) Lymph % (Auto) Ritchie % (Auto) 10.5 H Neut # (Auto) 1.4 L Lymph # (Auto) 0.7 L Seg Neuts % (Manual) Band Neuts % (Manual) 10 H Lymphocytes % (Manual) Metamyelocytes % (Man) 2 H Plasma Cell % (Manual) Nucleated RBCs/100 WBC 2 H Toxic Granulation Dohle Bodies Platelet Estimate Low L Platelet Morphology Ovalocytes 1+ H Rouleaux Keratocytes PT APTT Fibrinogen D-Dimer Quant (PE/DVT) HCO3 Base Excess O2 Saturation ABG pH ABG pCO2 ABG pO2 ABG HCO3 ABG O2 Content ABG Base Excess Hemoglobin Sodium Potassium 3.2 L Chloride 109 H Carbon Dioxide Anion Gap BUN 5 L Creatinine Less than 0.15 L Estimated GFR POC Glucose Random Glucose 108 H Lactic Acid Calcium 6.8 L* Prot Corrected Calcium 8.2 L D Phosphorus 2.1 L Magnesium 1.4 L Iron TIBC % Saturation Ferritin Total Bilirubin AST Alkaline Phosphatase 179 H Troponin I B-Natriuretic Peptide Total Protein 4.5 L Albumin 1.1 L Vitamin B12 Urine Turbidity Urine Protein Urine Ketones Urine Urobilinogen Ur Leukocyte Esterase Urine RBC Urine WBC Urine WBC Clumps Urine Bacteria Urine Mucus Vancomycin Trough DELANEY Screen DELANEY Titer SS-A Antibody SS-B Antibody SM/PROP CUTTER Antibody Anti-ds DNA Titer (Crith) Anti-ds DNA (Crithidia) MTS Gel Crossmatch 03/17/18 03/18/18 03/18/18 13:26 00:26 04:30 WBC 2.8 L RBC 2.20 L Hgb 7.0 L 6.7 L* Hct 21.3 L 20.2 L* RDW Plt Count 138 L Neut % (Auto) Lymph % (Auto) Ritchie % (Auto) 10.9 H Neut # (Auto) 1.6 L Lymph # (Auto) 0.9 L Seg Neuts % (Manual) Band Neuts % (Manual) Lymphocytes % (Manual) Metamyelocytes % (Man) Plasma Cell % (Manual) Nucleated RBCs/100 WBC Toxic Granulation Dohle Bodies Platelet Estimate Platelet Morphology Ovalocytes Rouleaux Keratocytes PT APTT Fibrinogen D-Dimer Quant (PE/DVT) HCO3 Base Excess O2 Saturation ABG pH ABG pCO2 ABG pO2 ABG HCO3 ABG O2 Content ABG Base Excess Hemoglobin Sodium Potassium Chloride Carbon Dioxide Anion Gap BUN Creatinine Estimated GFR POC Glucose 160 H Random Glucose Lactic Acid Calcium Prot Corrected Calcium Phosphorus Magnesium Iron TIBC % Saturation Ferritin Total Bilirubin AST Alkaline Phosphatase Troponin I B-Natriuretic Peptide Total Protein Albumin Vitamin B12 Urine Turbidity Urine Protein Urine Ketones Urine Urobilinogen Ur Leukocyte Esterase Urine RBC Urine WBC Urine WBC Clumps Urine Bacteria Urine Mucus Vancomycin Trough DELANEY Screen DELANEY Titer SS-A Antibody SS-B Antibody SM/PROP CUTTER Antibody Anti-ds DNA Titer (Crith) Anti-ds DNA (Crithidia) MTS Gel Crossmatch 03/18/18 03/18/18 03/18/18 04:30 05:35 13:15 WBC RBC Hgb Hct RDW Plt Count Neut % (Auto) Lymph % (Auto) Ritchie % (Auto) Neut # (Auto) Lymph # (Auto) Seg Neuts % (Manual) Band Neuts % (Manual) Lymphocytes % (Manual) Metamyelocytes % (Man) Plasma Cell % (Manual) Nucleated RBCs/100 WBC Toxic Granulation Dohle Bodies Platelet Estimate Platelet Morphology Ovalocytes Rouleaux Keratocytes PT 11.8 H APTT Fibrinogen D-Dimer Quant (PE/DVT) HCO3 Base Excess O2 Saturation ABG pH ABG pCO2 ABG pO2 ABG HCO3 ABG O2 Content ABG Base Excess Hemoglobin Sodium Potassium Chloride 110 H Carbon Dioxide Anion Gap BUN 5 L Creatinine Less than 0.15 L Estimated GFR POC Glucose Random Glucose 144 H Lactic Acid Calcium 7.0 L* Prot Corrected Calcium 8.4 L Phosphorus Magnesium Iron TIBC % Saturation Ferritin Total Bilirubin AST Alkaline Phosphatase 176 H Troponin I B-Natriuretic Peptide Total Protein 4.5 L Albumin 1.0 L Vitamin B12 Urine Turbidity Urine Protein Urine Ketones Urine Urobilinogen Ur Leukocyte Esterase Urine RBC Urine WBC Urine WBC Clumps Urine Bacteria Urine Mucus Vancomycin Trough DELANEY Screen DELANEY Titer SS-A Antibody SS-B Antibody SM/PROP CUTTER Antibody Anti-ds DNA Titer (Crith) Anti-ds DNA (Crithidia) MTS Gel Crossmatch See Detail 03/18/18 03/18/18 03/19/18 14:15 16:59 00:39 WBC RBC Hgb 9.1 L D Hct 26.5 L RDW Plt Count Neut % (Auto) Lymph % (Auto) Ritchie % (Auto) Neut # (Auto) Lymph # (Auto) Seg Neuts % (Manual) Band Neuts % (Manual) Lymphocytes % (Manual) Metamyelocytes % (Man) Plasma Cell % (Manual) Nucleated RBCs/100 WBC Toxic Granulation Dohle Bodies Platelet Estimate Platelet Morphology Ovalocytes Rouleaux Keratocytes PT APTT Fibrinogen D-Dimer Quant (PE/DVT) HCO3 Base Excess O2 Saturation ABG pH ABG pCO2 ABG pO2 ABG HCO3 ABG O2 Content ABG Base Excess Hemoglobin Sodium Potassium Chloride Carbon Dioxide Anion Gap BUN Creatinine Estimated GFR POC Glucose 134 H 144 H Random Glucose Lactic Acid Calcium Prot Corrected Calcium Phosphorus Magnesium Iron TIBC % Saturation Ferritin Total Bilirubin AST Alkaline Phosphatase Troponin I B-Natriuretic Peptide Total Protein Albumin Vitamin B12 Urine Turbidity Urine Protein Urine Ketones Urine Urobilinogen Ur Leukocyte Esterase Urine RBC Urine WBC Urine WBC Clumps Urine Bacteria Urine Mucus Vancomycin Trough DELANEY Screen DELANEY Titer SS-A Antibody SS-B Antibody SM/PROP CUTTER Antibody Anti-ds DNA Titer (Crith) Anti-ds DNA (Crithidia) MTS Gel Crossmatch 03/19/18 03/19/18 03:50 03:50 WBC RBC 2.96 L Hgb 9.0 L Hct 26.4 L RDW Plt Count 126 L Neut % (Auto) Lymph % (Auto) Ritchie % (Auto) 9.0 H Neut # (Auto) Lymph # (Auto) Seg Neuts % (Manual) Band Neuts % (Manual) Lymphocytes % (Manual) Metamyelocytes % (Man) Plasma Cell % (Manual) Nucleated RBCs/100 WBC Toxic Granulation Dohle Bodies Platelet Estimate Platelet Morphology Ovalocytes Rouleaux Keratocytes PT APTT Fibrinogen D-Dimer Quant (PE/DVT) HCO3 Base Excess O2 Saturation ABG pH ABG pCO2 ABG pO2 ABG HCO3 ABG O2 Content ABG Base Excess Hemoglobin Sodium Potassium Chloride 112 H Carbon Dioxide Anion Gap BUN Creatinine 0.23 L Estimated GFR POC Glucose Random Glucose 156 H Lactic Acid Calcium 7.2 L* Prot Corrected Calcium Phosphorus Magnesium Iron TIBC % Saturation Ferritin Total Bilirubin AST Alkaline Phosphatase Troponin I B-Natriuretic Peptide Total Protein 4.5 L Albumin Vitamin B12 Urine Turbidity Urine Protein Urine Ketones Urine Urobilinogen Ur Leukocyte Esterase Urine RBC Urine WBC Urine WBC Clumps Urine Bacteria Urine Mucus Vancomycin Trough DELANEY Screen DELANEY Titer SS-A Antibody SS-B Antibody SM/PROP CUTTER Antibody Anti-ds DNA Titer (Crith) Anti-ds DNA (Crithidia) MTS Gel Crossmatch Assessment and Plan - Plan Impression: 1. 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 Recent MRI with anticipated postoperative changes. 2. Incidental finding left ICA aneurysm per report from [facility]. 3. Multiple new small lesions left parietal and occipital lobe. Etiology undetermined. Possible infectious origin. 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 Possible underlying inflammatory disorder. Plan: No further neurosurgical intervention anticipated at this point. Conservative treatment for incidental left ICA aneurysm with follow-up imaging study in the next 6-12 months. Patient can be weaned to extubate from neurosurgical standpoint. Follow-up MRI in the next 7-10 days for follow-up of the left parieto-occipital lesions. Infectious disease following
[2018-03-20] MEDS: Vancomycin Inj 1,000 MG in Sodium Chlor 0.9% Inj 250 ML IV.SIG SCH ×3 (00:34→17:42)
[2018-03-20] MEDS: Dextrose 5%/NaCl 0.9% Inj 1,000 ML IV.CONT SCH ×2 (00:39→11:32)
[2018-03-20] MEDS: Propofol 1000 mg/100 ml Inj 1,000 MG/100 ML BOTTLE IV.CONT PRN ×2 (00:45→04:32)
[2018-03-20] MEDS: Chlorhexidine 0.12% Oral Kit 15 ML UDC OROPHARYNG SCH ×3 (00:51→20:49)
[2018-03-20] MEDS: Hypromellose 0.3% Opth Gel 10 GM Bottle EACH EYE SCH ×4 (00:51→20:49)
[2018-03-20] MEDS: Mag Sulf 1 gm/100 ml Premix 100 ML IV.SIG SCH (00:51)
[2018-03-20] MEDS: Dexmedetomidine Inj 200 MCG in Sodium Chlor 0.9% Inj 48 ML IV.CONT PRN ×6 (00:54→22:03)
[2018-03-20 04:20] LABS: Baso % (Auto) 0.2 % (0.0-2.0); Eos % (Auto) 0.7 % (0.0-4.0); Hemoglobin 8.6 gm/dL (11.6-15.3); Lymph # (Auto) 0.8 th/mm3 (1.0-4.8); Lymph % (Auto) 13.3 % (9.0-44.0); Mean Corpuscular HGB Conc 34.2 % (32.0-36.0); Mean Corpuscular Hemoglobin 30.8 pg (27.0-34.0); Mean Corpuscular Volume 90.1 fL (80.0-100.0); Mean Platelet Volume 8.3 fL (7.0-11.0); Mono # (Auto) 0.4 th/mm3 (0.0-0.9); Mono % (Auto) 6.8 % (0.0-8.0); Neut # (Auto) 4.9 th/mm3 (1.8-7.7); Platelet Count 97 th/mm3 (150-450); Red Blood Count 2.78 mil/mm3 (4.00-5.30); Red Cell Distribution Width 16.5 % (11.6-17.2); White Blood Count 6.2 th/mm3 (4.0-11.0)
[2018-03-20] MEDS: Oral Hygiene Kit OROPHARYNG SCH ×4 (04:30→20:49)
[2018-03-20] MEDS: Insulin NovoLIN Regular Correctional Sugar Inj SQ SCH ×4 (04:31→20:49)
[2018-03-20 04:39] LABS: Alanine Aminotransferase 18 U/L (10-53); Albumin 0.9 g/dL (3.4-5.0); Alkaline Phosphatase 237 U/L (45-117); Anion Gap 8 meq/L (5-15); Aspartate Aminotransferase 41 U/L (15-37); Blood Urea Nitrogen 8 mg/dL (7-18); Calcium 6.9 mg/dL (8.5-10.1); Carbon Dioxide 23.8 meq/L (21.0-32.0); Chloride 113 meq/L (98-107); Glomerular Filtration Rate Greater Than 89 mL/min (>89); Glucose,Random 118 mg/dL (74-106); Magnesium 1.7 mg/dL (1.5-2.5); Phosphorus 2.9 mg/dL (2.5-4.9); Potassium 3.2 meq/L (3.5-5.1); Sodium 145 meq/L (136-145); Total Protein 4.5 g/dL (6.4-8.2)
--- NOTE | 2018-03-20 05:08 | XR ---
EXAM DATE: 03/20/2018 5:01 AM EDT AGE/SEX: 62 years / Female INDICATIONS: Shortness of breath. CLINICAL DATA: This is the patient's subsequent encounter. Patient reports that signs and symptoms h ave been present for 2 months and indicates a pain score of Nonresponsive. MEDICAL/SURGICAL HISTORY: . Hypertension. Fusion, cervical. COMPARISON: [facility], CHEST 1V SINGLE AP, 03/19/2018. . FINDINGS: Endotracheal tube tip in left mainstem bronchus. NG enters stomach. Right central line in superior vena cava. Bilateral mostly basilar airspace diseas e and small pleural effusions similar to March 19. CONCLUSION: Endotracheal tube tip in left mainstem bronchus. Bilateral mostly basilar airspace disease and effusi ons similar to March 19. Electronically signed by: Sj Do MD 03/20/2018 5:07 AM EDT
[2018-03-20] MEDS ORDERED: Pharmacy Ordered Lab Info OTHER ONE (05:45)
[2018-03-20] MEDS: Levothyroxine 50 MCG Tablet PO SCH (05:53)
[2018-03-20 05:54] LABS: Lymphocytes 6 % (9-44); Monocytes 7 % (0-8); Platelet Morphology Normal (Normal)
[2018-03-20 05:57] LABS: Dohle Bodies Present; RBC Morphology Normal (Normal)
--- NOTE | 2018-03-20 06:42 | XR ---
EXAM DATE: 03/20/2018 6:28 AM EDT AGE/SEX: 62 years / Female INDICATIONS: ETT placement. CLINICAL DATA: This is the patient's initial encounter. Patient reports that signs and symptoms have been present for 1 day and indicates a pain score of Nonresponsive. MEDICAL/SURGICAL HISTORY: . Hypertension. . Fusion, cervical. COMPARISON: [facility], CHEST 1V SINGLE AP, 03/20/2018. . FINDINGS: Endotracheal tube tip remains in proximal left mainstem bronchus. This should be withdrawn at least 3 cm. There is basilar airspace disease. No pneumothorax. CONCLUSION: Endotracheal tube tip remains in left mainstem bronchus. This should be withdrawn about 3 cm. Bilateral mostly basilar airspace disease and small pleural effusions. Electronically signed by: Sj Do MD 03/20/2018 6:41 AM EDT
[2018-03-20] MEDS: Gabapentin 300 MG Capsule PO SCH ×3 (09:31→17:53)
--- NOTE | 2018-03-20 12:25 | P.PNCC ---
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 she was sent to [facility] for procedural management of these. She was then transferred to [facility] on 02/28. Please see the dictated hospitalist consult note on 02/28 on admission to [facility] for a detailed record of the hospital course while at [facility] Today, she was found to be very tachycardic in the 160s and hypotensive with sbp in the 70s. She was emergently transferred to the ICU after rapid response was called for evaluation and management of her hypotension. Of note, she did not have iv access. I met her on arrival to the ICU. I placed 2 18g piv. 12-lead EKG confirms sinus tachycardia. I due to the fast rate, I gave 6mg adenosine to slow it down diagnostically, and it slowed down temporarily to a HR in the 70s, confirming sinus rhythm. I performed bedside critical care echocardiography which demonstrates grossly preserve biventricular function. in particular, RV is decompressed and well-functioning. IVC is completely collapsable. no pericardial effusion. I gave her 3L NS bolus ivf which improved her SBP to 110s and decreased her HR to 110s. She is afebrile. stat CBC shows anemia (history of recent femoral artery pseudoaneurysm), CMP demonstrates elevated AST and Alk phos, elevated lactate at 3.7. Cr elevated above baseline. Patient denies any complaints to me. she is mostly bangladeshi speaking, but communicates in basic Romansh. specifically denies chest pain, shortness of breath, fever/chills, nausea, vomiting, abdominal pain, constipation, diarrhea. I discussed with her family, she has been eating and drinking well even up to today. ROS otherwise negative. 03/02 Patient is awake lying in bed in TRAV. On room air oxygen. T:103.2 this morning She was hypotensive overnight initially placed on Neosyn now off pressor with BP 147/67 with MAP 96. 03/03 No events overnight. Seems more awake and alert this morning. T: 100.2 at midnight. BP and HR better ( 119/58 with MAP 83mmHg). On no pressors. BC from 03/01: E.coli ESBL 6/30: clinically improving. slightly tachycardic. on appropriate therapy for her ESBL e. coli. denies complaints. hemodynamically stable. on room air. 03/05: Patient developed worsening respiratory distress yesterday and required endotracheal intubation and was placed on mechanical ventilation. Hypotension overnight for which patient was started on phenylephrine. Developed A. fib with RVR and was started on amiodarone gtt. 03/06 Patient remains sedated and intubated. Tmax 101.6, On Amio drip. 03/07 Patient remains intubated off sedation. s/p transfusion 2u PRBC yesterday. Tolerating tube feeds. Afebrile. Off Amio drip. 03/08 Patient remains intubated. T:100.9 last night. 03/09 No events overnight. Tolerated CPAP for approx 4 hrs yesterday. Off sedation. Afebrile. 03/10 No events overnight T:100.1 at 4am, Awake, patient was on CPAP for short time yesterday and placed back on PRVC mode for low TV and tachycardia. 03/11 No events overnight. Tolerated CPAP x 4hrs yesterday. T:100.6 yesterday. On no sedation. 03/12 Patient was extubated yesterday reintubated last night for resp distress and AMS. Afebrile. On Diprivan infusion for sedation. 03/13: Remains intubated critical, remains encephalopathy unresponsive off sedation. Afebrile EEG showed significant encephalopathy no seizures. Right subclavian central line placed, remains on Luis-Synephrine to keep map above 65 03/14: Remains encephalopathy again unresponsive. Eyes are open but no tracking did not follow commands. Remains leukopenic. Weaned off Luis-Synephrine. Not tolerating CPAP due to low tidal volume 03/15: Continues to fail CPAP due to low tidal volume. IV Levaquin added yesterday by ID for stenotrophomonas in the sputum. Remains encephalopathic did not follow commands but eyes are spontaneously open. I have requested neurology consult today 03/16: T-max 100.1. Currently 99. EEG has been performed. Does not follow commands. Tube feeds at 30 cc an hour. Positive BM. 03/17 Patient remains intubated on Precedex drip but awake. 03/18 T-current 100.7. Tolerating tube feeds at goal. Arousable the ventilator and follows command. Left side is chronically weaker. Discussed with Dr. Gutierrez /neurology. Reviewed MRI brain. Recommended evaluation by neurosurgery for abnormal MRI C-spine. Patient's CT surgeon at [facility] is Dr. Ku Subjective 03/19: T-max 100.7. Currently 99. Tachycardic. Tolerated CPAP trial. On the ventilator currently. Positive BM yesterday. 03/20 Patient was on Diprivan and Precedex drip overnight now off sedation. Afebrile. Objective Vital Signs / I&O: Vital Signs 03/19/18 13:00 03/19/18 14:00 03/19/18 14:30 Temperature Pulse Rate 104 H 105 H 107 H Respiratory Rate 21 21 19 Blood Pressure 121/73 118/73 113/71 Pulse Oximetry 100 100 100 03/19/18 15:00 03/19/18 15:21 03/19/18 15:30 Temperature Pulse Rate 108 H 108 H Respiratory Rate 20 16 21 Blood Pressure 115/71 103/67 Pulse Oximetry 100 100 100 03/19/18 16:00 03/19/18 18:00 03/19/18 18:30 Temperature 98.9 F Pulse Rate 112 H 108 H 108 H Respiratory Rate 21 26 H 25 H Blood Pressure 109/71 117/67 Pulse Oximetry 100 100 100 03/19/18 19:00 03/19/18 19:30 03/19/18 19:57 Temperature Pulse Rate 111 H 109 H 109 H Respiratory Rate 28 H 24 16 Blood Pressure 109/69 110/68 Pulse Oximetry 100 100 100 03/19/18 20:00 03/19/18 20:30 03/19/18 21:00 Temperature 98.4 F Pulse Rate 109 H 111 H 113 H Respiratory Rate 22 19 18 Blood Pressure 102/68 90/54 L 89/61 L Pulse Oximetry 100 100 100 03/19/18 21:30 03/19/18 22:00 03/19/18 22:30 Temperature Pulse Rate 112 H 109 H 108 H Respiratory Rate 16 16 16 Blood Pressure 111/66 101/63 110/71 Pulse Oximetry 100 100 100 03/19/18 23:00 03/19/18 23:31 03/19/18 23:37 Temperature Pulse Rate 107 H 106 H 104 H Respiratory Rate 18 20 17 Blood Pressure 103/71 107/71 Pulse Oximetry 100 100 100 03/20/18 00:00 03/20/18 00:31 03/20/18 01:00 Temperature Pulse Rate 108 H 109 H 108 H Respiratory Rate 17 16 16 Blood Pressure 104/66 109/69 95/62 L Pulse Oximetry 100 100 100 03/20/18 01:31 03/20/18 02:00 03/20/18 03:00 Temperature Pulse Rate 106 H 104 H 103 H Respiratory Rate 16 17 16 Blood Pressure 108/62 104/70 Pulse Oximetry 100 100 100 03/20/18 04:00 03/20/18 04:53 03/20/18 05:00 Temperature 99 F Pulse Rate 100 H 101 H 99 H Respiratory Rate 16 16 16 Blood Pressure Pulse Oximetry 100 100 100 03/20/18 05:35 03/20/18 06:00 03/20/18 06:30 Temperature Pulse Rate 104 H 107 H 111 H Respiratory Rate 16 17 20 Blood Pressure 100/58 L 98/67 L 85/53 L Pulse Oximetry 100 100 03/20/18 07:00 03/20/18 07:22 03/20/18 07:27 Temperature Pulse Rate 108 H 112 H 104 H Respiratory Rate 21 20 16 Blood Pressure 83/50 L 130/75 114/59 L Pulse Oximetry 100 03/20/18 07:30 03/20/18 07:48 03/20/18 07:50 Temperature Pulse Rate 105 H 114 H Respiratory Rate 16 27 H 30 H Blood Pressure 112/59 L Pulse Oximetry 100 03/20/18 08:00 03/20/18 11:37 Temperature Pulse Rate Respiratory Rate 25 H Blood Pressure Pulse Oximetry 100 100 Intake & Output 03/19/18 03/20/18 03/20/18 18:59 06:59 18:59 Intake Total 2184 / 2184 2349 / 2349 1000 / 1000 Output Total 800 / 800 900 / 900 Balance 1384 / 1384 1449 / 1449 1000 / 1000 Weight 765.6 kg Intake: IV 1700 / 1700 2050 / 2050 1000 / 1000 Precedex Inj 200 MCG In NS Inj 250 / 250 200 / 200 48 ML @ 0.2 MCG/KG/HR 3.53 mls/ hr IV.CONT TITRATE PRN Rx#: [id number] D5W/Normal Saline Inj 1,000 ML 1000 / 1000 1000 / 1000 1000 / 1000 @ 84 mls/hr IV.CONT .[id number] [facility] Rx#:[id number] Diprivan 1000 mg/100 ml Inj 1, 200 / 200 200 / 200 000 mg In 100 ml @ 5 MCG/KG/MIN 2.118 mls/hr IV.CONT TITRATE PRN Rx#:[id number] Levaquin 750 mg Premix Inj 150 150 / 150 150 / 150 ML @ 100 mls/hr IV.SIG Q24H [facility] Rx#:[id number] Magnesium Sulfate 1 gm/D5W 100 100 / 100 ml Premix 100 ML @ 100 mls/hr IV.SIG Q1H [facility] Rx#:[id number] Vancomycin Inj 1,000 MG In NS 0 / 0 500 / 500 Inj 250 ML @ 250 mls/hr IV.SIG Q12H [facility] Rx#:[id number] Oral 0 / 0 Tube Feeding 304 / 304 299 / 299 Water Bolus Amount 180 / 180 Output: Urine 900 / 900 Stool 0 / 0 Urine Amount (Catheter) 800 / 800 Indwelling Urethral Catheter 800 / 800 Other: Date of Last Bowel Movement 03/20/18 03/20/18 Result Diagrams: 03/20/18 04:00 03/20/18 04:00 Other Results: Laboratory Results - last 12 hr 03/20/18 03/20/18 04:00 04:00 WBC 6.2 RBC 2.78 L Hgb 8.6 L Hct 25.0 L MCV 90.1 MCH 30.8 MCHC 34.2 RDW 16.5 Plt Count 97 L MPV 8.3 Prelim Diff (Auto) Slide review pending Neut % (Auto) 79.0 H Lymph % (Auto) 13.3 Rabun % (Auto) 6.8 Eos % (Auto) 0.7 Baso % (Auto) 0.2 Neut # (Auto) 4.9 Lymph # (Auto) 0.8 L Rabun # (Auto) 0.4 Eos # (Auto) 0.0 Baso # (Auto) 0.0 WBC Differential Manual diff final Seg Neuts % (Manual) 72 H Band Neuts % (Manual) 15 H Lymphocytes % (Manual) 6 L Monocytes % (Manual) 7 Abs Neuts (Manual) 5.4 Differential Comment . Dohle Bodies Present H Platelet Estimate Low L Platelet Morphology Normal RBC Morphology Normal Sodium 145 Potassium 3.2 L Chloride 113 H Carbon Dioxide 23.8 Anion Gap 8 BUN 8 Creatinine Less than 0.15 L Estimated GFR Greater than 89 Random Glucose 118 H Calcium 6.9 L* Prot Corrected Calcium 8.3 L Phosphorus 2.9 Magnesium 1.7 Total Bilirubin 0.2 AST 41 H ALT 18 Alkaline Phosphatase 237 H Total Protein 4.5 L Albumin 0.9 L Imaging: Head CT 03/12/18 06:59 CONCLUSION: 1. No acute intracranial abnormality. 2. Minimal fluid in the mastoid air cells. Cervical Spine MRI 03/16/18 00:00 CONCLUSION: 1. Persistent abnormal signal in the cord extending from C4 down to T1. Much of this likely related to edema. The edema appears to extend over a smaller area on the current exam. There is a linear area of increased signal seen on the T1 and T2-weighted images at the left-sided cord at the C7-T1 level which may represent an area of focal hemorrhage within the cord. 2. Status post laminectomy with posterior fusion and hardware placed at the C4- T1 levels. 3. Prevertebral soft tissue swelling. 4. No focal fluid collection to suggest an abscess is seen. Head MRI 03/16/18 00:00 CONCLUSION: 1. There is a new area of nodular enhancement, abnormal FLAIR signal, and mild restricted diffusion at the baeza matter white matter junction in the left occipital lobe. 3 additional small areas of nodular enhancement measuring approximately 3 mm are also identified along the baeza matter surface in the left parietal high convexity. Etiology is nonspecific. Metastatic disease is one consideration but given the history infection is another consideration. Suggest attention to these areas at follow-up imaging. 2. Increased fluid in the mastoid air cells bilaterally. Chest X-Ray 03/20/18 06:00 CONCLUSION: Endotracheal tube tip in left mainstem bronchus. Bilateral mostly basilar airspace disease and effusions similar to March 19. Objective Remarks: GENERAL: Patient is 62 yo female patient intubated and off sedation SKIN: Warm and dry. No rash. Sacral DTI HEAD: Normocephalic. EYES: No scleral icterus. No injection or drainage. NECK: Supple, trachea midline. No JVD or lymphadenopathy. CARDIOVASCULAR: RRR. S1, S2. No S4. Without murmurs, gallops, or rubs. RESPIRATORY: Breath sounds equal bilaterally. No accessory muscle use. Diminished in the bases bilaterally. GASTROINTESTINAL: Abdomen soft, non-tender, nondistended. Hypoactive bowel sounds appreciated. MUSCULOSKELETAL: Trace bilateral lower extremity edema. NEURO: Intubated, sedated Assessment and Plan - Assessment and Plan Plan: Neuro/Psych: History of C6 vertebral aneurysm and underwent a C4 through T1 posterior fusion resection of the C6 mass which was negative for malignancy with 90% of mass removed, just showing inflammation, and a C4 through 7 laminectomy on 02/03/2018. Severe metabolic encephalopathy Recent aneurysmal subarachnoid hemorrhage treated at [facility] in January 2018 History of left occipital subarachnoid hemorrhage February 15, 2018 Cord edema possible hemorrhage within the cord level C7 through T1 Off Precedex drip , monitor neuro status Repeat CT brain showed no acute abnormalities. EEG significant encephalopathy Seen by Dr. Newberry from [facility]- No further neurosurgical intervention anticipated at this point. MRI brain: previously noted subarachnoid hemorrhage overlying the occipital lobes has resolved. Tiny trace of residual hemorrhage in the posterior lateral ventricles. Stable chronic white matter changes. No new or acute intracranial process. Neurology consult requested Dr. Arellano following. EEG: Mod. encephalopathy MRI brain 03/16 : There is a new area of nodular enhancement, abnormal FLAIR signal, and mild restricted diffusion at the baeza matter white matter junction in the left occipital lobe. 3 additional small areas of nodular enhancement measuring approximately 3 mm are also identified along the baeza matter surface in the left parietal high convexity. Etiology is nonspecific. MRI cervical spine 03/16: Persistent abnormal signal in the cord extending from C4 down to T1. Much of this likely related to edema. The edema appears to extend over a smaller area on the current exam. There is a linear area of increased signal seen on the T1 and T2-weighted images at the left-sided cord at the C7-T1 level which may represent an area of focal hemorrhage within the cord. Status post laminectomy with posterior fusion and hardware placed at the C4-T1 levels. Prevertebral soft tissue swelling. No focal fluid collection to suggest an abscess. Currently on gabapentin 600 mg 3 times daily/home medication on hold for neuropathy pain Currently on cyclobenzaprine 5 mg every 8 hours. Hold secondary to AMS Acetaminophen 650 every 6 hours as needed fever Neuro is following Dr. Gutierrez. Her neurosurgeon is Dr. Ku [phone] Pulm: Acute hypoxemic respiratory failure HCAP Extubated and reintubated on 03/11, failing CPAP trials due to low tidal volumes. PRVC 16/500/1/5/35 Ventilator bundle Albuterol/ipratropium aerosols every 4 hours with albuterol aerosols every 2 hours. Dyspnea Daily spontaneous breathing trials CT pulmonary angiogram chest: No PE, minimal consolidative changes left base CV: A. fib/sinus tachycardia Septic shock Hyperlipidemia Place on Lopressor 25mg Q12 Monitor HR and BP keep MAP>65mmHg. on IV metoprolol 2.5 mg every 6 hours PRN tachycardia Pravachol 20mg daily for dyslipidemia - Elevated troponin, type II demand ischemia NSTEMI - Echo 03/06 EF 50-55% - Will not anticoagulate at this time given risk/benefit with recent head bleed Cortisol level: 41 Cards has followed Renal/FEN/: Urinary retention Monitor renal function, electrolytes replacement per protocol. D5NS@50ml/hr Continue oxybutynin 5 mg every 8 hours GI: Elevated AST, Alk phos Monitor LFT's, CT abd/pelvis without evidence of overt acute cholecystitis Tube feeds- Glucerna 1.5 with goal rate 45ml/hr Lansoprazole for GI prophylaxis Docusate sodium/senna 1 tablet twice daily for bowel regimen ID: Urinary tract infection ESBL E. coli bacteremia Pneumonia with Stenotrophomonas s/p Septic shock ID is following Continue with abx per ID (levofloxacin, piperacillin/tazobactam vancomycin) Recheck sputum cx Follow up blood cultures negative 03/11, 03/15 sputum Stenotrophomonas 03/07: Sputum cx: NG 03/08, 03/09 BC: NGTD 03/06 BC Coag negative staph 03/05 BC: E.coli bacteremia 03/01 BC: E.coli ESBL 03/01 Urine cx: GNR Heme: Normocytic anemia Thrombocytopenia likely 2nd sepsis -Monitor CBC, s/p 2u PRBC 03/06 Heme is following- Dr. Miller Hep PLT ab negative FEN TIBC both low Transfuse one PRBC 03/18 MSKRheum Sacral deep tissue injury SLE positive History of RF - present on admission - does not appear grossly infected - likely not the source of infection - management per wound care nurse Endo: SSI if needed for glycemic control On levothyroxine 50mcg daily. TSH: 0.47 GI prophylaxis- On lansoprazole 30 mg daily DVT prophylaxis- SCD, hold Heparin Sq due to recent [employer] bleed in January ( MRI brain 01/29) and thrombocytopenia Lines: Left subclavian CVL placed 03/12, d/c central line Level 3 follow-up
[2018-03-20] MEDS: Metoprolol Inj 5 MG/5 ML Vial IV.PUSH PRN (12:46)
--- NOTE | 2018-03-20 13:27 | P.PNID ---
Subjective Remarks: Patient is on the ventilator. Family is at bedside. Awake. No distress. Afebrile. Repeat sputum culture has Stenotrophomonas. Sputum culture had Stenotrophomonas from 03/11/2018. Antibiotics: Vancomycin Levaquin. Past Medical History: Diabetes mellitus, hypertension, hypothyroidism, systemic lupus erythematosus, rheumatoid arthritis, anemia, recent subarachnoid hemorrhage, C6 mass resection, hysterectomy, bladder sling, appendectomy, C4-C7 laminectomy, C4-T1 posterior fusion. Allergies/Adverse Reactions: Allergies codeine Allergy (Intermediate, Verified 01/24/18 17:12) nitroglycerin Adverse Reaction (Severe, Verified 01/25/18 09:14) Nausea/Vomiting Objective Vital Signs 03/19/18 14:00 03/19/18 14:30 03/19/18 15:00 Temperature Pulse Rate 105 H 107 H 108 H Respiratory Rate 21 19 20 Blood Pressure 118/73 113/71 115/71 Pulse Oximetry 100 100 100 03/19/18 15:21 03/19/18 15:30 03/19/18 16:00 Temperature 98.9 F Pulse Rate 108 H 112 H Respiratory Rate 16 21 21 Blood Pressure 103/67 109/71 Pulse Oximetry 100 100 100 03/19/18 18:00 03/19/18 18:30 03/19/18 19:00 Temperature Pulse Rate 108 H 108 H 111 H Respiratory Rate 26 H 25 H 28 H Blood Pressure 117/67 109/69 Pulse Oximetry 100 100 100 03/19/18 19:30 03/19/18 19:57 03/19/18 20:00 Temperature 98.4 F Pulse Rate 109 H 109 H 109 H Respiratory Rate 24 16 22 Blood Pressure 110/68 102/68 Pulse Oximetry 100 100 100 03/19/18 20:30 03/19/18 21:00 03/19/18 21:30 Temperature Pulse Rate 111 H 113 H 112 H Respiratory Rate 19 18 16 Blood Pressure 90/54 L 89/61 L 111/66 Pulse Oximetry 100 100 100 03/19/18 22:00 03/19/18 22:30 03/19/18 23:00 Temperature Pulse Rate 109 H 108 H 107 H Respiratory Rate 16 16 18 Blood Pressure 101/63 110/71 103/71 Pulse Oximetry 100 100 100 03/19/18 23:31 03/19/18 23:37 07/16/18 00:00 Temperature Pulse Rate 106 H 104 H 108 H Respiratory Rate 20 17 17 Blood Pressure 107/71 104/66 Pulse Oximetry 100 100 100 03/20/18 00:31 03/20/18 01:00 03/20/18 01:31 Temperature Pulse Rate 109 H 108 H 106 H Respiratory Rate 16 16 16 Blood Pressure 109/69 95/62 L 108/62 Pulse Oximetry 100 100 100 03/20/18 02:00 03/20/18 03:00 03/20/18 04:00 Temperature 99 F Pulse Rate 104 H 103 H 100 H Respiratory Rate 17 16 16 Blood Pressure 104/70 Pulse Oximetry 100 100 100 03/20/18 04:53 03/20/18 05:00 03/20/18 05:35 Temperature Pulse Rate 101 H 99 H 104 H Respiratory Rate 16 16 16 Blood Pressure 100/58 L Pulse Oximetry 100 100 100 03/20/18 06:00 03/20/18 06:30 03/20/18 07:00 Temperature Pulse Rate 107 H 111 H 108 H Respiratory Rate 17 20 21 Blood Pressure 98/67 L 85/53 L 83/50 L Pulse Oximetry 100 100 03/20/18 07:22 03/20/18 07:27 03/20/18 07:30 Temperature Pulse Rate 112 H 104 H 105 H Respiratory Rate 20 16 16 Blood Pressure 130/75 114/59 L 112/59 L Pulse Oximetry 03/20/18 07:48 03/20/18 07:50 03/20/18 08:00 Temperature Pulse Rate 114 H Respiratory Rate 27 H 30 H Blood Pressure Pulse Oximetry 100 100 03/20/18 11:37 Temperature Pulse Rate Respiratory Rate 25 H Blood Pressure Pulse Oximetry 100 Intake & Output 03/19/18 03/20/18 03/20/18 18:59 06:59 18:59 Intake Total 2184 / 2184 2349 / 2349 1000 / 1000 Output Total 800 / 800 900 / 900 Balance 1384 / 1384 1449 / 1449 1000 / 1000 Weight 765.6 kg 78.5 kg Intake: IV 1700 / 1700 2050 / 2050 1000 / 1000 Precedex Inj 200 MCG In NS Inj 250 / 250 200 / 200 48 ML @ 0.2 MCG/KG/HR 3.53 mls/ hr IV.CONT TITRATE PRN Rx#: [id number] D5W/Normal Saline Inj 1,000 ML 1000 / 1000 1000 / 1000 1000 / 1000 @ 84 mls/hr IV.CONT .[id number] [facility] Rx#:[id number] Diprivan 1000 mg/100 ml Inj 1, 200 / 200 200 / 200 000 mg In 100 ml @ 5 MCG/KG/MIN 2.118 mls/hr IV.CONT TITRATE PRN Rx#:[id number] Levaquin 750 mg Premix Inj 150 150 / 150 150 / 150 ML @ 100 mls/hr IV.SIG Q24H [facility] Rx#:[id number] Magnesium Sulfate 1 gm/D5W 100 100 / 100 ml Premix 100 ML @ 100 mls/hr IV.SIG Q1H [facility] Rx#:[id number] Vancomycin Inj 1,000 MG In NS 0 / 0 500 / 500 Inj 250 ML @ 250 mls/hr IV.SIG Q12H [facility] Rx#:[id number] Oral 0 / 0 Tube Feeding 304 / 304 299 / 299 Water Bolus Amount 180 / 180 Output: Urine 900 / 900 Stool 0 / 0 Urine Amount (Catheter) 800 / 800 Indwelling Urethral Catheter 800 / 800 Other: Date of Last Bowel Movement 03/20/18 03/20/18 03/16/18 19:40 Blood - Line Aerobic Blood Culture - Preliminary No growth in 4 days 03/16/18 19:40 Blood - Line Anaerobic Blood Culture - Preliminary No growth in 4 days 03/16/18 19:45 Blood - Line Aerobic Blood Culture - Preliminary No growth in 4 days 03/16/18 19:45 Blood - Line Anaerobic Blood Culture - Preliminary No growth in 4 days 03/16/18 15:28 Catheterized Urine Urine Culture - Final No growth in 48 hours 03/15/18 04:50 Sputum - Endotracheal Gram Stain - Final 03/15/18 04:50 Sputum - Endotracheal Sputum Culture - Final Stenotrophomonas maltophilia 03/12/18 00:46 Blood - Peripheral Aerobic Blood Culture - Final No growth in 5 days 03/12/18 00:46 Blood - Peripheral Anaerobic Blood Culture - Final No growth in 5 days 03/12/18 00:40 Blood - Peripheral Aerobic Blood Culture - Final No growth in 5 days 03/12/18 00:40 Blood - Peripheral Anaerobic Blood Culture - Final No growth in 5 days Lab - Hematology Results 03/18/18 03/19/18 03/20/18 14:15 03:50 04:00 WBC 5.7 D 6.2 RBC 2.96 L 2.78 L Hgb 9.1 L D 9.0 L 8.6 L Hct 26.5 L 26.4 L 25.0 L MCV 89.4 90.1 MCH 30.3 30.8 MCHC 33.9 34.2 RDW 16.3 16.5 Plt Count 126 L 97 L MPV 8.0 8.3 Prelim Diff (Auto) Slide review pending Neut % (Auto) 69.2 79.0 H Lymph % (Auto) 21.0 13.3 Billings % (Auto) 9.0 H 6.8 Eos % (Auto) 0.5 0.7 Baso % (Auto) 0.3 0.2 Neut # (Auto) 3.9 4.9 Lymph # (Auto) 1.2 0.8 L Billings # (Auto) 0.5 0.4 Eos # (Auto) 0.0 0.0 Baso # (Auto) 0.0 0.0 WBC Differential . Manual diff final Seg Neuts % (Manual) 72 H Band Neuts % (Manual) 15 H Lymphocytes % (Manual) 6 L Monocytes % (Manual) 7 Abs Neuts (Manual) 5.4 Differential Comment Auto diff final . Dohle Bodies Present H Platelet Estimate Low L Platelet Morphology Normal RBC Morphology Normal Lab - Chemistry Results 03/18/18 03/18/18 03/19/18 16:59 21:40 00:39 Sodium Potassium Chloride Carbon Dioxide Anion Gap BUN Creatinine Estimated GFR POC Glucose 134 H 144 H Random Glucose Lactic Acid 1.5 Calcium Prot Corrected Calcium Phosphorus Magnesium Total Bilirubin AST ALT Alkaline Phosphatase Total Protein Albumin 03/19/18 03/20/18 03:50 04:00 Sodium 145 145 Potassium 3.5 3.2 L Chloride 112 H 113 H Carbon Dioxide 24.8 23.8 Anion Gap 8 8 BUN 7 8 Creatinine 0.23 L Less than 0.15 L Estimated GFR Greater than 89 Greater than 89 POC Glucose Random Glucose 156 H 118 H Lactic Acid Calcium 7.2 L* 6.9 L* Prot Corrected Calcium 8.7 8.3 L Phosphorus 2.8 2.9 Magnesium 1.8 1.7 Total Bilirubin 0.2 AST 41 H ALT 18 Alkaline Phosphatase 237 H Total Protein 4.5 L 4.5 L Albumin 0.9 L Imaging: ITS Impressions Head CT 03/12/18 06:59 CONCLUSION: 1. No acute intracranial abnormality. 2. Minimal fluid in the mastoid air cells. Cervical Spine MRI 03/16/18 00:00 CONCLUSION: 1. Persistent abnormal signal in the cord extending from C4 down to T1. Much of this likely related to edema. The edema appears to extend over a smaller area on the current exam. There is a linear area of increased signal seen on the T1 and T2-weighted images at the left-sided cord at the C7-T1 level which may represent an area of focal hemorrhage within the cord. 2. Status post laminectomy with posterior fusion and hardware placed at the C4- T1 levels. 3. Prevertebral soft tissue swelling. 4. No focal fluid collection to suggest an abscess is seen. Head MRI 03/16/18 00:00 CONCLUSION: 1. There is a new area of nodular enhancement, abnormal FLAIR signal, and mild restricted diffusion at the baeza matter white matter junction in the left occipital lobe. 3 additional small areas of nodular enhancement measuring approximately 3 mm are also identified along the baeza matter surface in the left parietal high convexity. Etiology is nonspecific. Metastatic disease is one consideration but given the history infection is another consideration. Suggest attention to these areas at follow-up imaging. 2. Increased fluid in the mastoid air cells bilaterally. Chest X-Ray 03/20/18 06:00 CONCLUSION: Endotracheal tube tip in left mainstem bronchus. Bilateral mostly basilar airspace disease and effusions similar to March 19. Physical Exam: GENERAL: No acute distress. HEENT: Pupils reactive to light. No icterus. NECK: Supple. No swelling. LUNGS: Clearer breath sounds. HEART: Regular S1 and S2. No murmurs rubs or gallops. ABDOMEN: Soft, nontender. EXTREMITIES: No clubbing or cyanosis. Bilateral hand edema. SKIN: No rash. NEUROLOGIC: Unable to fully assess. PSYCH: Unable to fully assess. Assessment and Plan - Plan IMPRESSION: ESBL E. coli bacteremia. ESBL E. coli UTI. Pneumonia due to stenotrophomonas. Acute respiratory failure. Status post cervical spine surgery. Brain lesions on MRI. 3 enhancing nodular lesions seen in the left parietal area. Recent subarachnoid hemorrhage. Reviewed neurosurgery note. PLAN: Continue Levaquin for Stenotrophomonas. Continue vancomycin. Monitor progress Monitor temps
[2018-03-20] MEDS: Metoprolol Tartrate 25 MG Tablet PO SCH ×2 (16:14→20:38)
[2018-03-20] MEDS: Collagenase Oint 30 GM Tube TOPICAL SCH (16:16)
[2018-03-20] MEDS: Acetaminophen 325 MG Tablet PO PRN (20:40)
[2018-03-21] MEDS: Dexmedetomidine Inj 200 MCG in Sodium Chlor 0.9% Inj 48 ML IV.CONT PRN ×5 (00:03→23:32)
[2018-03-21] MEDS: Insulin NovoLIN Regular Correctional Sugar Inj SQ SCH ×2 (00:47→06:27)
[2018-03-21] MEDS: Oral Hygiene Kit OROPHARYNG SCH ×3 (00:47→18:04)
[2018-03-21] MEDS: Hypromellose 0.3% Opth Gel 10 GM Bottle EACH EYE SCH ×3 (04:45→22:21)
--- NOTE | 2018-03-21 05:06 | XR ---
EXAM DATE: 03/21/2018 5:04 AM EDT AGE/SEX: 62 years / Female INDICATIONS: OG tube placement. CLINICAL DATA: This is the patient's subsequent encounter. Patient reports that signs and symptoms h ave been present for 2 weeks and indicates a pain score of 0/10. MEDICAL/SURGICAL HISTORY: Hypertension. Fusion, cervical. COMPARISON: [facility], ABDOMEN KUB ONLY, 01/26/2018. . FINDINGS: NG or OG tube tip is in the distal stomach. Bowel gas pattern unremarkable. No evidence for obstructi on or free air. CONCLUSION: Nasogastric or orogastric tube tip in distal stomach. Electronically signed by: Sj Do MD 03/21/2018 5:05 AM EDT
[2018-03-21 05:12] LABS: Baso % (Auto) 0.1 % (0.0-2.0); Eos # (Auto) 0.1 th/mm3 (0.0-0.4); Eos % (Auto) 1.5 % (0.0-4.0); Lymph # (Auto) 1.1 th/mm3 (1.0-4.8); Mean Corpuscular HGB Conc 33.3 % (32.0-36.0); Mean Corpuscular Hemoglobin 29.9 pg (27.0-34.0); Mean Corpuscular Volume 89.7 fL (80.0-100.0); Mean Platelet Volume 8.8 fL (7.0-11.0); Mono # (Auto) 0.4 th/mm3 (0.0-0.9); Mono % (Auto) 6.8 % (0.0-8.0); Neut # (Auto) 3.8 th/mm3 (1.8-7.7); Neut % (Auto) 70.6 % (16.0-70.0); Platelet Count 99 th/mm3 (150-450); Red Blood Count 2.67 mil/mm3 (4.00-5.30); Red Cell Distribution Width 17.2 % (11.6-17.2); White Blood Count 5.4 th/mm3 (4.0-11.0)
[2018-03-21 05:34] LABS: Alanine Aminotransferase 17 U/L (10-53); Albumin 0.8 g/dL (3.4-5.0); Alkaline Phosphatase 312 U/L (45-117); Anion Gap 9 meq/L (5-15); Aspartate Aminotransferase 30 U/L (15-37); Blood Urea Nitrogen 10 mg/dL (7-18); Carbon Dioxide 22.7 meq/L (21.0-32.0); Chloride 113 meq/L (98-107); Glomerular Filtration Rate Greater Than 89 mL/min (>89); Glucose,Random 123 mg/dL (74-106); Magnesium 1.7 mg/dL (1.5-2.5); Phosphorus 2.1 mg/dL (2.5-4.9); Potassium 3.1 meq/L (3.5-5.1); Sodium 145 meq/L (136-145); Total Protein 4.3 g/dL (6.4-8.2)
[2018-03-21] MEDS: Vancomycin Inj 1,000 MG in Sodium Chlor 0.9% Inj 250 ML IV.SIG SCH ×2 (06:28→18:03)
[2018-03-21] MEDS: Levothyroxine 50 MCG Tablet PO SCH (06:28)
[2018-03-21] MEDS: Potassium Phosphate Inj 30 MMOL in Sodium Chlor 0.9% Inj 250 ML IV.SIG PRN (07:09)
[2018-03-21 07:46] LABS: Eosinophils 1 % (0-4); Lymphocytes 7 % (9-44); Monocytes 8 % (0-8)
[2018-03-21 07:47] LABS: Platelet Morphology Normal (Normal)
[2018-03-21] MEDS: Metoprolol Tartrate 25 MG Tablet PO SCH ×2 (09:00→22:19)
[2018-03-21] MEDS: Gabapentin 300 MG Capsule PO SCH ×3 (09:00→18:03)
[2018-03-21] MEDS: Potassium Chlor 20 mEq Premix 20 MEQ/100 ML PIGGYBACK IV.SIG PRN (09:06)
--- NOTE | 2018-03-21 10:29 | P.PNCC ---
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 she was sent to [facility] for procedural management of these. She was then transferred to [facility] on 02/28. Please see the dictated hospitalist consult note on 02/28 on admission to [facility] for a detailed record of the hospital course while at [facility]. Today, she was found to be very tachycardic in the 160s and hypotensive with sbp in the 70s. She was emergently transferred to the ICU after rapid response was called for evaluation and management of her hypotension. Of note, she did not have iv access. I met her on arrival to the ICU. I placed 2 18g piv. 12-lead EKG confirms sinus tachycardia. I due to the fast rate, I gave 6mg adenosine to slow it down diagnostically, and it slowed down temporarily to a HR in the 70s, confirming sinus rhythm. I performed bedside critical care echocardiography which demonstrates grossly preserve biventricular function. in particular, RV is decompressed and well-functioning. IVC is completely collapsable. no pericardial effusion. I gave her 3L NS bolus ivf which improved her SBP to 110s and decreased her HR to 110s. She is afebrile. stat CBC shows anemia (history of recent femoral artery pseudoaneurysm), CMP demonstrates elevated AST and Alk phos, elevated lactate at 3.7. Cr elevated above baseline. Patient denies any complaints to me. she is mostly azerbaijani speaking, but communicates in basic Swedish. specifically denies chest pain, shortness of breath, fever/chills, nausea, vomiting, abdominal pain, constipation, diarrhea. I discussed with her family, she has been eating and drinking well even up to today. ROS otherwise negative. 03/02 Patient is awake lying in bed in TRAV. On room air oxygen. T:103.2 this morning She was hypotensive overnight initially placed on Neosyn now off pressor with BP 147/67 with MAP 96. 03/03 No events overnight. Seems more awake and alert this morning. T: 100.2 at midnight. BP and HR better ( 119/58 with MAP 83mmHg). On no pressors. BC from 03/01: E.coli ESBL 6/30: clinically improving. slightly tachycardic. on appropriate therapy for her ESBL e. coli. denies complaints. hemodynamically stable. on room air. 03/05: Patient developed worsening respiratory distress yesterday and required endotracheal intubation and was placed on mechanical ventilation. Hypotension overnight for which patient was started on phenylephrine. Developed A. fib with RVR and was started on amiodarone gtt. 03/06 Patient remains sedated and intubated. Tmax 101.6, On Amio drip. 03/07 Patient remains intubated off sedation. s/p transfusion 2u PRBC yesterday. Tolerating tube feeds. Afebrile. Off Amio drip. 03/08 Patient remains intubated. T:100.9 last night. 03/09 No events overnight. Tolerated CPAP for approx 4 hrs yesterday. Off sedation. Afebrile. 03/10 No events overnight T:100.1 at 4am, Awake, patient was on CPAP for short time yesterday and placed back on PRVC mode for low TV and tachycardia. 03/11 No events overnight. Tolerated CPAP x 4hrs yesterday. T:100.6 yesterday. On no sedation. 03/12 Patient was extubated yesterday reintubated last night for resp distress and AMS. Afebrile. On Diprivan infusion for sedation. 03/13: Remains intubated critical, remains encephalopathy unresponsive off sedation. Afebrile EEG showed significant encephalopathy no seizures. Right subclavian central line placed, remains on Luis-Synephrine to keep map above 65 03/14: Remains encephalopathy again unresponsive. Eyes are open but no tracking did not follow commands. Remains leukopenic. Weaned off Luis-Synephrine. Not tolerating CPAP due to low tidal volume 03/15: Continues to fail CPAP due to low tidal volume. IV Levaquin added yesterday by ID for stenotrophomonas in the sputum. Remains encephalopathic did not follow commands but eyes are spontaneously open. I have requested neurology consult today 03/16: T-max 100.1. Currently 99. EEG has been performed. Does not follow commands. Tube feeds at 30 cc an hour. Positive BM. 03/17 Patient remains intubated on Precedex drip but awake. 03/18 T-current 100.7. Tolerating tube feeds at goal. Arousable the ventilator and follows command. Left side is chronically weaker. Discussed with Dr. Gutierrez /neurology. Reviewed MRI brain. Recommended evaluation by neurosurgery for abnormal MRI C-spine. Patient's CT surgeon at [facility] is Dr. Ku Subjective 03/19: T-max 100.7. Currently 99. Tachycardic. Tolerated CPAP trial. On the ventilator currently. Positive BM yesterday. 03/20 Patient was on Diprivan and Precedex drip overnight now off sedation. Afebrile. 03/21: no improvements. has been intubated for 17 days, and failed extubation quickly 03/12. needs trach and peg for further progress. Objective Vital Signs / I&O: Vital Signs 03/20/18 11:37 03/20/18 12:00 03/20/18 15:42 Temperature Pulse Rate Respiratory Rate 25 H 23 Blood Pressure Pulse Oximetry 100 100 03/20/18 16:00 03/20/18 20:00 03/20/18 20:04 Temperature 37.7 C H 37.9 C H Pulse Rate 134 H 137 H Respiratory Rate 18 21 24 Blood Pressure 112/61 132/84 Pulse Oximetry 98 100 100 03/20/18 21:00 03/20/18 21:30 03/20/18 22:00 Temperature Pulse Rate 128 H 102 H 103 H Respiratory Rate 19 18 18 Blood Pressure 106/70 98/60 L 97/62 L Pulse Oximetry 100 100 100 03/20/18 22:31 03/20/18 23:00 03/20/18 23:30 Temperature Pulse Rate 97 H 96 H 96 H Respiratory Rate 27 H 16 16 Blood Pressure 116/66 104/59 L 97/66 L Pulse Oximetry 78 L 100 100 03/21/18 00:00 03/21/18 00:07 03/21/18 00:30 Temperature 37.4 C Pulse Rate 91 H 90 Respiratory Rate 16 16 16 Blood Pressure 109/60 97/53 L Pulse Oximetry 100 100 100 03/21/18 01:00 03/21/18 01:01 03/21/18 01:30 Temperature Pulse Rate 88 87 90 Respiratory Rate 16 16 16 Blood Pressure 114/55 L 107/66 Pulse Oximetry 100 100 100 03/21/18 02:00 03/21/18 02:31 03/21/18 03:00 Temperature Pulse Rate 83 83 80 Respiratory Rate 16 16 16 Blood Pressure 95/58 L 105/56 L 102/59 L Pulse Oximetry 100 100 100 03/21/18 03:31 03/21/18 03:57 03/21/18 04:00 Temperature 36.5 C Pulse Rate 79 80 Respiratory Rate 16 16 16 Blood Pressure 115/57 L 112/60 Pulse Oximetry 100 100 100 03/21/18 04:30 03/21/18 05:00 03/21/18 05:02 Temperature Pulse Rate 83 88 90 Respiratory Rate 16 18 Blood Pressure 104/58 L 124/82 Pulse Oximetry 100 100 03/21/18 05:30 03/21/18 06:00 03/21/18 06:30 Temperature Pulse Rate 82 81 84 Respiratory Rate 18 16 Blood Pressure 103/61 112/67 134/71 Pulse Oximetry 100 100 03/21/18 07:00 03/21/18 07:30 03/21/18 08:00 Temperature 36.8 C Pulse Rate 75 74 73 Respiratory Rate 16 18 16 Blood Pressure 113/67 112/67 113/71 Pulse Oximetry 100 99 100 03/21/18 08:30 03/21/18 09:20 Temperature Pulse Rate 74 Respiratory Rate 16 16 Blood Pressure 107/64 Pulse Oximetry 100 100 Intake & Output 03/20/18 03/21/18 03/21/18 18:59 06:59 18:59 Intake Total 1814 / 1814 588 / 588 50 / 50 Output Total 875 / 875 850 / 850 Balance 939 / 939 -262 / -262 50 / 50 Weight 78.5 kg 78.9 kg Intake: IV 1346 / 1346 150 / 150 50 / 50 Precedex Inj 200 MCG In NS Inj 96 / 96 150 / 150 50 / 50 48 ML @ 0.2 MCG/KG/HR 3.53 mls/ hr IV.CONT TITRATE PRN Rx#: [id number] D5W/Normal Saline Inj 1,000 ML 1000 / 1000 @ 84 mls/hr IV.CONT .[id number] [facility] Rx#:[id number] Vancomycin Inj 1,000 MG In NS 250 / 250 Inj 250 ML @ 250 mls/hr IV.SIG Q12H [facility] Rx#:[id number] Oral 0 / 0 0 / 0 Tube Feeding 318 / 318 288 / 288 Tube Irrigant 0 / 0 0 / 0 Water Bolus Amount 150 / 150 150 / 150 Output: Urine 875 / 875 850 / 850 Stool 0 / 0 0 / 0 Urine/Stool Mix 0 / 0 0 / 0 Other: Date of Last Bowel Movement 03/20/18 03/21/18 03/21/18 # Bowel Movements 0 0 # Incontinent Bowel Movements 2 2 # Emeses 1 0 # Oral Regurgitations 1 0 Result Diagrams: 03/21/18 04:30 03/21/18 04:30 Objective Remarks: GENERAL: Patient is 62 yo female patient intubated and off sedation SKIN: Warm and dry. No rash. Sacral DTI HEAD: Normocephalic. EYES: No scleral icterus. No injection or drainage. NECK: Supple, trachea midline. No JVD or lymphadenopathy. CARDIOVASCULAR: RRR. sinus. RESPIRATORY: Breath sounds equal bilaterally. No accessory muscle use. Diminished in the bases bilaterally. GASTROINTESTINAL: Abdomen soft, non-tender, nondistended. Hypoactive bowel sounds appreciated. MUSCULOSKELETAL: Trace bilateral lower extremity edema. NEURO: Intubated, sedated Assessment and Plan - Assessment and Plan Plan: Neuro/Psych: History of C6 vertebral aneurysm and underwent a C4 through T1 posterior fusion resection of the C6 mass which was negative for malignancy with 90% of mass removed, just showing inflammation, and a C4 through 7 laminectomy on 02/03/2018. Severe metabolic encephalopathy Recent aneurysmal subarachnoid hemorrhage treated at [facility] in January 2018 History of left occipital subarachnoid hemorrhage February 15, 2018 Cord edema possible hemorrhage within the cord level C7 through T1 Off Precedex drip , monitor neuro status Repeat CT brain showed no acute abnormalities. EEG significant encephalopathy Seen by Dr. Newberry from [facility] [place] No further neurosurgical intervention anticipated at this point. MRI brain: previously noted subarachnoid hemorrhage overlying the occipital lobes has resolved. Tiny trace of residual hemorrhage in the posterior lateral ventricles. Stable chronic white matter changes. No new or acute intracranial process. Neurology consult requested Dr. Arellano following. EEG: Mod. encephalopathy MRI brain 03/16 : There is a new area of nodular enhancement, abnormal FLAIR signal, and mild restricted diffusion at the baeza matter white matter junction in the left occipital lobe. 3 additional small areas of nodular enhancement measuring approximately 3 mm are also identified along the baeza matter surface in the left parietal high convexity. Etiology is nonspecific. MRI cervical spine 03/16: Persistent abnormal signal in the cord extending from C4 down to T1. Much of this likely related to edema. The edema appears to extend over a smaller area on the current exam. There is a linear area of increased signal seen on the T1 and T2-weighted images at the left-sided cord at the C7-T1 level which may represent an area of focal hemorrhage within the cord. Status post laminectomy with posterior fusion and hardware placed at the C4-T1 levels. Prevertebral soft tissue swelling. No focal fluid collection to suggest an abscess. Currently on gabapentin 600 mg 3 times daily/home medication on hold for neuropathy pain Currently on cyclobenzaprine 5 mg every 8 hours. Hold secondary to AMS Acetaminophen 650 every 6 hours as needed fever Neuro is following Dr. Gutierrez. Her neurosurgeon is Dr. Ku [phone] Newberry if she still requires c-collar: has been post-op for greater than 6 weeks. Pulm: Acute hypoxemic respiratory failure HCAP Extubated and reintubated on 03/11, failing CPAP trials due to low tidal volumes. PRVC 16/500///35 Ventilator bundle Albuterol/ipratropium aerosols every 4 hours with albuterol aerosols every 2 hours. Dyspnea Daily spontaneous breathing trials CT pulmonary angiogram chest: No PE, minimal consolidative changes left base has been > 17 days on mechanical ventilation. remains very weak with most likely myopathy of critical illness, poor tidal volumes. quickly failed trial of extubation 03/11. will require tracheostomy for further care. have consulted general surgery for trach. CV: A. fib/sinus tachycardia Septic shock- resolved. Hyperlipidemia Place on Lopressor 25mg Q12 Monitor HR and BP keep MAP>65mmHg. on IV metoprolol 2.5 mg every 6 hours PRN tachycardia Pravachol 20mg daily for dyslipidemia - Elevated troponin, type II demand ischemia NSTEMI - Echo 03/06 EF 50-55% - Will not anticoagulate at this time given risk/benefit with recent head bleed Cortisol level: 41 Cards has followed Renal/FEN/: Urinary retention Monitor renal function, electrolytes replacement per protocol. D5NS@50ml/hr Continue oxybutynin 5 mg every 8 hours d/c farmer and proceed with straight cath q6h. GI: Elevated AST, Alk phos Monitor LFT's, CT abd/pelvis without evidence of overt acute cholecystitis Tube feeds- Glucerna 1.5 with goal rate 45ml/hr Lansoprazole for GI prophylaxis Docusate sodium/senna 1 tablet twice daily for bowel regimen consult GI for PEG. ID: Urinary tract infection ESBL E. coli bacteremia Pneumonia with Stenotrophomonas s/p Septic shock ID is following Continue with abx per ID (levofloxacin, piperacillin/tazobactam vancomycin) Recheck sputum cx Follow up blood cultures negative 03/11, 03/15 sputum Stenotrophomonas 03/07: Sputum cx: NG 03/08, 03/09 BC: NGTD 03/06 BC Coag negative staph 03/05 BC: E.coli bacteremia 03/01 BC: E.coli ESBL 03/01 Urine cx: GNR Heme: Normocytic anemia Thrombocytopenia likely 2nd sepsis -Monitor CBC, s/p 2u PRBC 03/06 Heme is following- Dr. Miller Hep PLT ab negative FEN TIBC both low Transfuse one PRBC 03/18 MSKRheum Sacral deep tissue injury SLE positive History of RF - present on admission - does not appear grossly infected - likely not the source of infection - management per wound care nurse Endo: SSI if needed for glycemic control On levothyroxine 50mcg daily. TSH: 0.47 GI prophylaxis- On lansoprazole 30 mg daily DVT prophylaxis- SCD, hold Heparin Sq due to recent [employer] bleed in January ( MRI brain 01/29) and thrombocytopenia Lines: VAT to place midline. d/c cvl.
--- NOTE | 2018-03-21 12:28 | P.CONGI ---
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 Pt remains in ICU, she is on day 17 on the vent. She was extubated on 03/11 but a few hours after was reintubated and has not been able to be weaned off the vent. Pt is not on sedation, she is awake and following commands. Our service has been consulted for PEG placement. Surgery planning for tracheostomy tomorrow. Pts son and daughter at bedside. <Katty Mistry - Last Filed: 03/21/18 12:22> Review of Systems unobtainable due to endotracheal tube <Katty Mistry - Last Filed: 03/21/18 12:22> PMFSH - Medical / Surgical Hx Neg / Unobtainable Medical Problems Denied: Unable to Obtain <Katty Mistry - Last Filed: 03/21/18 12:22> Medications and Allergies Active Medications: Active Medications Acetaminophen (Tylenol) 650 mg PO Q6H PRN PRN Reason: PAIN 1-5 AND/OR FEVER > 101F Last Admin: 03/20/18 20:40 Dose: 650 mg Albuterol (Albuterol Neb (Prn)) 2.5 mg NEB Q2HR NEB PRN PRN Reason: DYSPNEA Artificial Tears (Genteal Severe Dry Eye Relief 0.3% Opth Gel) 1 drops EACH EYE Q8H [facility] Last Admin: 03/21/18 04:45 Dose: Not Given Chlorhexidine Gluconate (Peridex 0.12% Oral Kit) 15 ml OROPHARYNG BID@0800, 2000 [facility] Last Admin: 03/20/18 20:49 Dose: 15 ml Collagenase (Santyl Oint) 1 applicatio TOPICAL Q24H [facility] Last Admin: 03/20/18 16:16 Dose: 1 applicatio Cyclobenzaprine HCl (Flexeril) 5 mg PO TID [facility] Last Admin: 03/20/18 17:55 Dose: 5 mg Dextrose (D50w Vial) 50 ml IV.PUSH UNSCH PRN PRN Reason: PER HYPOGLYCEMIA PROTOCOL Gabapentin (Neurontin) 600 mg PO TID [facility] Last Admin: 03/20/18 17:53 Dose: 600 mg Glucagon (Glucagon Inj) 1 mg OTHER PRN PRN PRN Reason: for Hypoglycemia Protocol Magnesium Sulfate Inj 4 gm/ (Sodium Chloride) 100 mls @ 50 mls/hr IV.SIG UNSCH PRN PRN Reason: For Magnesium 0.9 - 1.1 mg/dL Magnesium Sulfate Inj 2 gm/ (Sodium Chloride) 100 mls @ 50 mls/hr IV.SIG UNSCH PRN PRN Reason: For Magnesium 1.2 - 1.6 mg/dL Potassium Chloride (Kcl 40 Meq Premix Inj) 40 meq in 100 mls @ 25 mls/hr IV.SIG Q2H PRN PRN Reason: For Potassium 2.8 - 3.2 mEq/L Potassium Chloride (Kcl 40 Meq Premix Inj) 40 meq in 100 mls @ 25 mls/hr IV.SIG UNSCH PRN PRN Reason: For Potassium 3.3 - 3.5 mEq/L Potassium Chloride (Kcl 20 Meq Premix Inj) 20 meq in 100 mls @ 50 mls/hr IV.SIG Q2H PRN PRN Reason: For Potassium 2.8 - 3.2 mEq/L Potassium Phosphate 30 mmol/ (Sodium Chloride) 260 mls @ 42 mls/hr IV.SIG UNSCH PRN PRN Reason: SEE LABEL COMMENTS Last Admin: 03/21/18 07:09 Dose: 42 mls/hr Sodium Phosphate 30 mmol/ (Sodium Chloride) 260 mls @ 42 mls/hr IV.SIG UNSCH PRN PRN Reason: For Phosphorus < 2.5 mg/dL Pharmacy Profile Note (Vancomycin Consult Pharmacy) 0 mls @ 0 mls/hr OTHER UNSCH [facility] Vancomycin HCl 1,000 mg/ (Sodium Chloride) 250 mls @ 250 mls/hr IV.SIG Q12H [facility] Last Admin: 03/21/18 06:28 Dose: 250 mls/hr Dextrose/Sodium Chloride (D5w/Normal Saline Inj) 1,000 mls @ 50 mls/hr IV.CONT .Q20H [facility] Last Admin: 03/20/18 11:32 Dose: 84 mls/hr Levofloxacin/Dextrose (Levaquin 750 Mg Premix Inj) 150 mls @ 100 mls/hr IV.SIG Q24H [facility] Last Admin: 03/20/18 14:00 Dose: 100 mls/hr Dexmedetomidine HCl 200 mcg/ (Sodium Chloride) 50 mls @ 3.53 mls/hr IV.CONT TITRATE PRN; Protocol PRN Reason: Per Protocol Last Admin: 03/21/18 09:03 Dose: 1 mcg/kg/hr, 17.65 mls/hr Propofol (Diprivan 1000 Mg/100 Ml Inj) 1,000 mg in 100 mls @ 2.118 mls/hr IV.CONT TITRATE PRN; Protocol PRN Reason: Per Protocol Last Titration: 03/20/18 04:33 Dose: 30 mcg/kg/min, 12.71 mls/hr Insulin Human Regular (Novolin R Supplemental Scale) 0 units SQ Q6HR [facility]; Protocol Last Admin: 03/21/18 06:27 Dose: Not Given Lansoprazole (Prevacid Solutab) 30 mg NG/OG DAILY [facility] Last Admin: 03/20/18 09:32 Dose: 30 mg Levothyroxine Sodium (Synthroid) 50 mcg PO DAILY@0600 [facility] Last Admin: 03/21/18 06:28 Dose: 50 mcg Magnesium Oxide (Mag-Ox) 800 mg PO UNSCH PRN PRN Reason: For Magnesium 1.2 - 1.6 mg/dL Last Admin: 03/14/18 05:37 Dose: 800 mg Magnesium Oxide (Mag-Ox) 800 mg PO UNSCH PRN PRN Reason: For Magnesium 1.2 - 1.6 mg/dL Metoprolol Tartrate (Lopressor Inj) 2.5 mg IV.PUSH Q6H PRN PRN Reason: RAPID HEART RATE Last Admin: 03/20/18 12:46 Dose: 2.5 mg Metoprolol Tartrate (Lopressor) 25 mg PO BID [facility] Last Admin: 03/20/18 20:38 Dose: 25 mg Miscellaneous (Pill Splitter) 1 each OTHER UNSCH PRN PRN Reason: SEE LABEL COMMENTS Miscellaneous Information ([facility] Ordered Lab Info) 0 each OTHER ONCE ONE Stop: 03/22/18 05:46 Ondansetron HCl (Zofran Odt) 4 mg PO Q6H PRN PRN Reason: NAUSEA OR VOMITING Last Admin: 03/13/18 05:49 Dose: 4 mg Oxybutynin Chloride (Ditropan) 5 mg PO Q8HR [facility] Last Admin: 03/21/18 06:27 Dose: 5 mg Potassium Bicarb/Potassium Chloride (K-Lyte Cl Eff) 50 meq PO UNSCH PRN PRN Reason: For Potassium 3.3 - 3.5 mEq/L Potassium Phosphate (K-Phos Original) 2,000 mg PO Q4H PRN PRN Reason: Phosphorus Less Than 2.5 mg/dL Potassium Phosphate (K-Phos Original) 2,000 mg PO UNSCH PRN PRN Reason: SEE LABEL COMMENTS Pravastatin Sodium (Pravachol) 20 mg PO DAILY [facility] Last Admin: 03/20/18 09:32 Dose: 20 mg Sodium Chloride (Ns Flush) 0 ml IV.FLUSH UNSCH [facility]; Protocol Last Admin: 03/20/18 20:38 Dose: Not Given Sodium Chloride (Ns Flush) 2 ml IV.FLUSH BID [facility]; Protocol Last Admin: 03/20/18 20:49 Dose: 2 ml Terbutaline Sulfate (Brethine Inj) 1 mg SQ UNSCH PRN PRN Reason: For Extravasation Tramadol HCl (Ultram) 50 mg PO Q8H PRN PRN Reason: PAIN 6-10 Last Admin: 03/10/18 03:17 Dose: 50 mg <Katty Mistry - Last Filed: 03/21/18 12:22> Active Medications: Active Medications Acetaminophen (Tylenol) 650 mg PO Q6H PRN PRN Reason: PAIN 1-5 AND/OR FEVER > 101F Last Admin: 03/20/18 20:40 Dose: 650 mg Albuterol (Albuterol Neb (Prn)) 2.5 mg NEB Q2HR NEB PRN PRN Reason: DYSPNEA Artificial Tears (Genteal Severe Dry Eye Relief 0.3% Opth Gel) 1 drops EACH EYE Q8H [facility] Last Admin: 03/21/18 13:58 Dose: 1 drops Chlorhexidine Gluconate (Peridex 0.12% Oral Kit) 15 ml OROPHARYNG BID@0800, 2000 [facility] Last Admin: 03/21/18 13:56 Dose: 15 ml Collagenase (Santyl Oint) 1 applicatio TOPICAL Q24H [facility] Last Admin: 03/21/18 18:03 Dose: 1 applicatio Cyclobenzaprine HCl (Flexeril) 5 mg PO TID [facility] Last Admin: 03/21/18 13:00 Dose: 5 mg Dextrose (D50w Vial) 50 ml IV.PUSH UNSCH PRN PRN Reason: PER HYPOGLYCEMIA PROTOCOL Gabapentin (Neurontin) 600 mg PO TID [facility] Last Admin: 03/21/18 18:03 Dose: 600 mg Glucagon (Glucagon Inj) 1 mg OTHER PRN PRN PRN Reason: for Hypoglycemia Protocol Magnesium Sulfate Inj 4 gm/ (Sodium Chloride) 100 mls @ 50 mls/hr IV.SIG UNSCH PRN PRN Reason: For Magnesium 0.9 - 1.1 mg/dL Magnesium Sulfate Inj 2 gm/ (Sodium Chloride) 100 mls @ 50 mls/hr IV.SIG UNSCH PRN PRN Reason: For Magnesium 1.2 - 1.6 mg/dL Potassium Chloride (Kcl 40 Meq Premix Inj) 40 meq in 100 mls @ 25 mls/hr IV.SIG Q2H PRN PRN Reason: For Potassium 2.8 - 3.2 mEq/L Potassium Chloride (Kcl 40 Meq Premix Inj) 40 meq in 100 mls @ 25 mls/hr IV.SIG UNSCH PRN PRN Reason: For Potassium 3.3 - 3.5 mEq/L Potassium Chloride (Kcl 20 Meq Premix Inj) 20 meq in 100 mls @ 50 mls/hr IV.SIG Q2H PRN PRN Reason: For Potassium 2.8 - 3.2 mEq/L Potassium Phosphate 30 mmol/ (Sodium Chloride) 260 mls @ 42 mls/hr IV.SIG UNSCH PRN PRN Reason: SEE LABEL COMMENTS Last Admin: 03/21/18 07:09 Dose: 42 mls/hr Sodium Phosphate 30 mmol/ (Sodium Chloride) 260 mls @ 42 mls/hr IV.SIG UNSCH PRN PRN Reason: For Phosphorus < 2.5 mg/dL Pharmacy Profile Note (Vancomycin Consult Pharmacy) 0 mls @ 0 mls/hr OTHER UNSCH [facility] Vancomycin HCl 1,000 mg/ (Sodium Chloride) 250 mls @ 250 mls/hr IV.SIG Q12H [facility] Last Admin: 03/21/18 18:03 Dose: 250 mls/hr Dextrose/Sodium Chloride (D5w/Normal Saline Inj) 1,000 mls @ 50 mls/hr IV.CONT .Q20H [facility] Last Admin: 03/21/18 15:29 Dose: 84 mls/hr Levofloxacin/Dextrose (Levaquin 750 Mg Premix Inj) 150 mls @ 100 mls/hr IV.SIG Q24H [facility] Last Admin: 03/21/18 14:00 Dose: 100 mls/hr Dexmedetomidine HCl 200 mcg/ (Sodium Chloride) 50 mls @ 3.53 mls/hr IV.CONT TITRATE PRN; Protocol PRN Reason: Per Protocol Last Admin: 03/21/18 09:03 Dose: 1 mcg/kg/hr, 17.65 mls/hr Propofol (Diprivan 1000 Mg/100 Ml Inj) 1,000 mg in 100 mls @ 2.118 mls/hr IV.CONT TITRATE PRN; Protocol PRN Reason: Per Protocol Last Titration: 03/20/18 04:33 Dose: 30 mcg/kg/min, 12.71 mls/hr Insulin Human Regular (Novolin R Supplemental Scale) 0 units SQ Q6HR [facility]; Protocol Last Admin: 03/21/18 06:27 Dose: Not Given Lansoprazole (Prevacid Solutab) 30 mg NG/OG DAILY [facility] Last Admin: 03/21/18 09:00 Dose: 30 mg Levothyroxine Sodium (Synthroid) 50 mcg PO DAILY@0600 [facility] Last Admin: 03/21/18 06:28 Dose: 50 mcg Magnesium Oxide (Mag-Ox) 800 mg PO UNSCH PRN PRN Reason: For Magnesium 1.2 - 1.6 mg/dL Last Admin: 03/14/18 05:37 Dose: 800 mg Magnesium Oxide (Mag-Ox) 800 mg PO UNSCH PRN PRN Reason: For Magnesium 1.2 - 1.6 mg/dL Metoprolol Tartrate (Lopressor Inj) 2.5 mg IV.PUSH Q6H PRN PRN Reason: RAPID HEART RATE Last Admin: 03/20/18 12:46 Dose: 2.5 mg Metoprolol Tartrate (Lopressor) 25 mg PO BID [facility] Last Admin: 03/21/18 09:00 Dose: 25 mg Miscellaneous (Pill Splitter) 1 each OTHER UNSCH PRN PRN Reason: SEE LABEL COMMENTS Miscellaneous Information ([facility] Ordered Lab Info) 0 each OTHER ONCE ONE Stop: 03/22/18 05:46 Ondansetron HCl (Zofran Odt) 4 mg PO Q6H PRN PRN Reason: NAUSEA OR VOMITING Last Admin: 03/13/18 05:49 Dose: 4 mg Oxybutynin Chloride (Ditropan) 5 mg PO Q8HR [facility] Last Admin: 03/21/18 13:59 Dose: 5 mg Potassium Bicarb/Potassium Chloride (K-Lyte Cl Eff) 50 meq PO UNSCH PRN PRN Reason: For Potassium 3.3 - 3.5 mEq/L Potassium Phosphate (K-Phos Original) 2,000 mg PO Q4H PRN PRN Reason: Phosphorus Less Than 2.5 mg/dL Potassium Phosphate (K-Phos Original) 2,000 mg PO UNSCH PRN PRN Reason: SEE LABEL COMMENTS Pravastatin Sodium (Pravachol) 20 mg PO DAILY [facility] Last Admin: 03/21/18 09:00 Dose: 20 mg Sodium Chloride (Ns Flush) 0 ml IV.FLUSH UNSCH [facility]; Protocol Last Admin: 03/20/18 20:38 Dose: Not Given Sodium Chloride (Ns Flush) 2 ml IV.FLUSH BID [facility]; Protocol Last Admin: 03/21/18 18:04 Dose: 2 ml Terbutaline Sulfate (Brethine Inj) 1 mg SQ UNSCH PRN PRN Reason: For Extravasation Tramadol HCl (Ultram) 50 mg PO Q8H PRN PRN Reason: PAIN 6-10 Last Admin: 03/10/18 03:17 Dose: 50 mg <Gume Sutton E - Last Filed: 03/21/18 18:32> Allergies Allergy/AdvReac Type Severity Reaction Status Date / Time codeine Allergy Intermediate Verified 01/24/18 17:12 nitroglycerin AdvReac Severe Nausea/Vomi Verified 01/25/18 09:14 ting Home Medications Medication Instructions Recorded Confirmed Type Bactrim DS 1 tab PO BID 03/04/18 03/04/18 History Ditropan XL 5 mg PO Q8HR 03/04/18 03/04/18 History Lopressor 25 mg PO BID 03/04/18 03/04/18 History Multiple Vitamins 1 tab PO DAILY 03/04/18 03/04/18 History [id number] 1 tab PO Q4HR 03/04/18 03/04/18 History cyclobenzaprine 5 mg PO TID 03/04/18 03/04/18 History famotidine 20 mg PO BID 03/04/18 03/04/18 History gabapentin 600 mg PO TID 03/04/18 03/04/18 History levothyroxine 50 mcg PO DAILY 03/04/18 03/04/18 History lovastatin 20 mg PO DAILY 03/04/18 03/04/18 History metformin 500 mg PO BID 03/04/18 03/04/18 History mycophenolate mofetil 1,000 mg PO BID 03/04/18 03/04/18 History prednisone See Label Instructions .ROUTE 03/04/18 03/04/18 History .COMPLEX tramadol 50 mg PO Q8HR 03/04/18 03/04/18 History Exam Vital signs: Vital Signs 03/20/18 15:42 03/20/18 16:00 03/20/18 20:00 Temperature 99.8 F H 100.2 F H Pulse Rate 134 H 137 H Respiratory Rate 23 18 21 Blood Pressure 112/61 132/84 Pulse Oximetry 98 100 03/20/18 20:04 03/20/18 21:00 03/20/18 21:30 Temperature Pulse Rate 128 H 102 H Respiratory Rate 24 19 18 Blood Pressure 106/70 98/60 L Pulse Oximetry 100 100 100 03/20/18 22:00 03/20/18 22:31 03/20/18 23:00 Temperature Pulse Rate 103 H 97 H 96 H Respiratory Rate 18 27 H 16 Blood Pressure 97/62 L 116/66 104/59 L Pulse Oximetry 100 78 L 100 03/20/18 23:30 03/21/18 00:00 03/21/18 00:07 Temperature 99.3 F Pulse Rate 96 H 91 H Respiratory Rate 16 16 16 Blood Pressure 97/66 L 109/60 Pulse Oximetry 100 100 100 03/21/18 00:30 03/21/18 01:00 03/21/18 01:01 Temperature Pulse Rate 90 88 87 Respiratory Rate 16 16 16 Blood Pressure 97/53 L 114/55 L Pulse Oximetry 100 100 100 03/21/18 01:30 03/21/18 02:00 03/21/18 02:31 Temperature Pulse Rate 90 83 83 Respiratory Rate 16 16 16 Blood Pressure 107/66 95/58 L 105/56 L Pulse Oximetry 100 100 100 03/21/18 03:00 03/21/18 03:31 03/21/18 03:57 Temperature Pulse Rate 80 79 Respiratory Rate 16 16 16 Blood Pressure 102/59 L 115/57 L Pulse Oximetry 100 100 100 03/21/18 04:00 03/21/18 04:30 03/21/18 05:00 Temperature 97.7 F Pulse Rate 80 83 88 Respiratory Rate 16 16 18 Blood Pressure 112/60 104/58 L Pulse Oximetry 100 100 100 03/21/18 05:02 03/21/18 05:30 03/21/18 06:00 Temperature Pulse Rate 90 82 81 Respiratory Rate 18 16 Blood Pressure 124/82 103/61 112/67 Pulse Oximetry 100 100 03/21/18 06:30 03/21/18 07:00 03/21/18 07:30 Temperature Pulse Rate 84 75 74 Respiratory Rate 16 18 Blood Pressure 134/71 113/67 112/67 Pulse Oximetry 100 99 03/21/18 08:00 03/21/18 08:30 03/21/18 09:20 Temperature 98.3 F Pulse Rate 73 74 Respiratory Rate 16 16 16 Blood Pressure 113/71 107/64 Pulse Oximetry 100 100 100 Intake & Output 03/20/18 03/21/18 03/21/18 18:59 06:59 18:59 Intake Total 1814 / 1814 588 / 588 50 / 50 Output Total 875 / 875 850 / 850 Balance 939 / 939 -262 / -262 50 / 50 Weight 78.5 kg 78.9 kg Intake: IV 1346 / 1346 150 / 150 50 / 50 Precedex Inj 200 MCG In NS Inj 96 / 96 150 / 150 50 / 50 48 ML @ 0.2 MCG/KG/HR 3.53 mls/ hr IV.CONT TITRATE PRN Rx#: [id number] D5W/Normal Saline Inj 1,000 ML 1000 / 1000 @ 84 mls/hr IV.CONT .[id number] [facility] Rx#:[id number] Vancomycin Inj 1,000 MG In NS 250 / 250 Inj 250 ML @ 250 mls/hr IV.SIG Q12H [facility] Rx#:[id number] Oral 0 / 0 0 / 0 Tube Feeding 318 / 318 288 / 288 Tube Irrigant 0 / 0 0 / 0 Water Bolus Amount 150 / 150 150 / 150 Output: Urine 875 / 875 850 / 850 Stool 0 / 0 0 / 0 Urine/Stool Mix 0 / 0 0 / 0 Other: Date of Last Bowel Movement 03/20/18 03/21/18 03/21/18 # Bowel Movements 0 0 # Incontinent Bowel Movements 2 2 # Emeses 1 0 # Oral Regurgitations 1 0 - Constitutional no acute distress - Routine HEENT Exam Head: Present: normocephalic, atraumatic - Routine Respiratory Exam Present: patient mechanically ventilated - Routine Abdominal Exam Present: soft, normoactive bowel sounds. Absent: tenderness - Routine Skin Exam Present: dry, warm - Routine Neurological Exam Present: alert <Katty Mistry - Last Filed: 03/21/18 12:22> Vital signs: Vital Signs 03/20/18 20:00 03/20/18 20:04 03/20/18 21:00 Temperature 100.2 F H Pulse Rate 137 H 128 H Respiratory Rate 21 24 19 Blood Pressure 132/84 106/70 Pulse Oximetry 100 100 100 03/20/18 21:30 03/20/18 22:00 03/20/18 22:31 Temperature Pulse Rate 102 H 103 H 97 H Respiratory Rate 18 18 27 H Blood Pressure 98/60 L 97/62 L 116/66 Pulse Oximetry 100 100 78 L 03/20/18 23:00 03/20/18 23:30 03/21/18 00:00 Temperature 99.3 F Pulse Rate 96 H 96 H 91 H Respiratory Rate 16 16 16 Blood Pressure 104/59 L 97/66 L 109/60 Pulse Oximetry 100 100 100 03/21/18 00:07 03/21/18 00:30 03/21/18 01:00 Temperature Pulse Rate 90 88 Respiratory Rate 16 16 16 Blood Pressure 97/53 L Pulse Oximetry 100 100 100 03/21/18 01:01 03/21/18 01:30 03/21/18 02:00 Temperature Pulse Rate 87 90 83 Respiratory Rate 16 16 16 Blood Pressure 114/55 L 107/66 95/58 L Pulse Oximetry 100 100 100 03/21/18 02:31 03/21/18 03:00 03/21/18 03:31 Temperature Pulse Rate 83 80 79 Respiratory Rate 16 16 16 Blood Pressure 105/56 L 102/59 L 115/57 L Pulse Oximetry 100 100 100 03/21/18 03:57 03/21/18 04:00 03/21/18 04:30 Temperature 97.7 F Pulse Rate 80 83 Respiratory Rate 16 16 16 Blood Pressure 112/60 104/58 L Pulse Oximetry 100 100 100 03/21/18 05:00 03/21/18 05:02 03/21/18 05:30 Temperature Pulse Rate 88 90 82 Respiratory Rate 18 18 Blood Pressure 124/82 103/61 Pulse Oximetry 100 100 03/21/18 06:00 03/21/18 06:30 03/21/18 07:00 Temperature Pulse Rate 81 84 75 Respiratory Rate 16 16 Blood Pressure 112/67 134/71 113/67 Pulse Oximetry 100 100 03/21/18 07:30 03/21/18 08:00 03/21/18 08:30 Temperature 98.3 F Pulse Rate 74 73 74 Respiratory Rate 18 16 16 Blood Pressure 112/67 113/71 107/64 Pulse Oximetry 99 100 100 03/21/18 09:20 03/21/18 12:00 03/21/18 15:59 Temperature 98.4 F Pulse Rate 109 H Respiratory Rate 16 16 22 Blood Pressure 92/64 L Pulse Oximetry 100 100 100 03/21/18 16:00 Temperature 99.8 F H Pulse Rate 111 H Respiratory Rate 16 Blood Pressure 111/64 Pulse Oximetry 100 Intake & Output 03/20/18 03/21/18 03/21/18 18:59 06:59 18:59 Intake Total 1963 / 1963 1588 / 1588 300 / 300 Output Total 875 / 875 850 / 850 Balance 1089 / 1089 738 / 738 300 / 300 Weight 78.5 kg 78.9 kg Intake: IV 1496 / 1496 1150 / 1150 300 / 300 Precedex Inj 200 MCG In NS Inj 96 / 96 150 / 150 50 / 50 48 ML @ 0.2 MCG/KG/HR 3.53 mls/ hr IV.CONT TITRATE PRN Rx#: [id number] D5W/Normal Saline Inj 1,000 ML 1000 / 1000 1000 / 1000 @ 50 mls/hr IV.CONT .Q20H [facility] Rx#:[id number] Levaquin 750 mg Premix Inj 150 150 / 150 ML @ 100 mls/hr IV.SIG Q24H [facility] Rx#:[id number] Vancomycin Inj 1,000 MG In NS 250 / 250 250 / 250 Inj 250 ML @ 250 mls/hr IV.SIG Q12H [facility] Rx#:[id number] Oral 0 / 0 0 / 0 Tube Feeding 318 / 318 288 / 288 Tube Irrigant 0 / 0 0 / 0 Water Bolus Amount 150 / 150 150 / 150 Output: Urine 875 / 875 850 / 850 Stool 0 / 0 0 / 0 Urine/Stool Mix 0 / 0 0 / 0 Other: Date of Last Bowel Movement 03/20/18 03/21/18 03/21/18 # Bowel Movements 0 0 # Incontinent Bowel Movements 2 2 # Emeses 1 0 # Oral Regurgitations 1 0 <Gume Sutton E - Last Filed: 03/21/18 18:32> Results - Labs CBC & Chem 7: 03/21/18 04:30 03/21/18 04:30 Labs: Laboratory Results - last 24 hr 03/20/18 03/20/18 03/20/18 04:00 15:34 23:17 WBC RBC Hgb Hct MCV MCH MCHC RDW Plt Count MPV Prelim Diff (Auto) Neut % (Auto) Lymph % (Auto) [place] % (Auto) Eos % (Auto) Baso % (Auto) Neut # (Auto) Lymph # (Auto) [place] # (Auto) Eos # (Auto) Baso # (Auto) WBC Differential Seg Neuts % (Manual) Band Neuts % (Manual) Lymphocytes % (Manual) Monocytes % (Manual) Eosinophils % (Manual) Abs Neuts (Manual) Differential Comment Platelet Estimate Platelet Morphology Sodium Potassium Chloride Carbon Dioxide Anion Gap BUN Creatinine Estimated GFR POC Glucose 104 113 H Random Glucose Calcium Prot Corrected Calcium Phosphorus Magnesium Total Bilirubin AST ALT Alkaline Phosphatase Total Protein Albumin Vancomycin Trough 3.1 L 03/21/18 03/21/18 03/21/18 04:22 04:30 04:30 WBC 5.4 RBC 2.67 L Hgb 8.0 L Hct 24.0 L MCV 89.7 MCH 29.9 MCHC 33.3 RDW 17.2 Plt Count 99 L MPV 8.8 Prelim Diff (Auto) Slide review pending Neut % (Auto) 70.6 H Lymph % (Auto) 21.0 [place] % (Auto) 6.8 Eos % (Auto) 1.5 Baso % (Auto) 0.1 Neut # (Auto) 3.8 Lymph # (Auto) 1.1 [place] # (Auto) 0.4 Eos # (Auto) 0.1 Baso # (Auto) 0.0 WBC Differential Manual diff final Seg Neuts % (Manual) 46 Band Neuts % (Manual) 38 H Lymphocytes % (Manual) 7 L Monocytes % (Manual) 8 Eosinophils % (Manual) 1 Abs Neuts (Manual) 4.5 Differential Comment . Platelet Estimate Low L Platelet Morphology Normal Sodium 145 Potassium 3.1 L Chloride 113 H Carbon Dioxide 22.7 Anion Gap 9 BUN 10 Creatinine Less than 0.15 L Estimated GFR Greater than 89 POC Glucose 138 H Random Glucose 123 H Calcium 7.0 L* Prot Corrected Calcium 8.5 Phosphorus 2.1 L Magnesium 1.7 Total Bilirubin 0.3 AST 30 ALT 17 Alkaline Phosphatase 312 H Total Protein 4.3 L Albumin 0.8 L Vancomycin Trough - Imaging Impressions Abdomen X-Ray 03/21/18 00:00 CONCLUSION: Nasogastric or orogastric tube tip in distal stomach. <Katty Mistry - Last Filed: 03/21/18 12:22> - Labs CBC & Chem 7: 03/21/18 04:30 03/21/18 04:30 Labs: Laboratory Results - last 24 hr 03/20/18 03/21/18 03/21/18 23:17 04:22 04:30 WBC 5.4 RBC 2.67 L Hgb 8.0 L Hct 24.0 L MCV 89.7 MCH 29.9 MCHC 33.3 RDW 17.2 Plt Count 99 L MPV 8.8 Prelim Diff (Auto) Slide review pending Neut % (Auto) 70.6 H Lymph % (Auto) 21.0 [place] % (Auto) 6.8 Eos % (Auto) 1.5 Baso % (Auto) 0.1 Neut # (Auto) 3.8 Lymph # (Auto) 1.1 [place] # (Auto) 0.4 Eos # (Auto) 0.1 Baso # (Auto) 0.0 WBC Differential Manual diff final Seg Neuts % (Manual) 46 Band Neuts % (Manual) 38 H Lymphocytes % (Manual) 7 L Monocytes % (Manual) 8 Eosinophils % (Manual) 1 Abs Neuts (Manual) 4.5 Differential Comment . Platelet Estimate Low L Platelet Morphology Normal Sodium Potassium Chloride Carbon Dioxide Anion Gap BUN Creatinine Estimated GFR POC Glucose 113 H 138 H Random Glucose Calcium Prot Corrected Calcium Phosphorus Magnesium Total Bilirubin AST ALT Alkaline Phosphatase Total Protein Albumin 03/21/18 04:30 WBC RBC Hgb Hct MCV MCH MCHC RDW Plt Count MPV Prelim Diff (Auto) Neut % (Auto) Lymph % (Auto) [place] % (Auto) Eos % (Auto) Baso % (Auto) Neut # (Auto) Lymph # (Auto) [place] # (Auto) Eos # (Auto) Baso # (Auto) WBC Differential Seg Neuts % (Manual) Band Neuts % (Manual) Lymphocytes % (Manual) Monocytes % (Manual) Eosinophils % (Manual) Abs Neuts (Manual) Differential Comment Platelet Estimate Platelet Morphology Sodium 145 Potassium 3.1 L Chloride 113 H Carbon Dioxide 22.7 Anion Gap 9 BUN 10 Creatinine Less than 0.15 L Estimated GFR Greater than 89 POC Glucose Random Glucose 123 H Calcium 7.0 L* Prot Corrected Calcium 8.5 Phosphorus 2.1 L Magnesium 1.7 Total Bilirubin 0.3 AST 30 ALT 17 Alkaline Phosphatase 312 H Total Protein 4.3 L Albumin 0.8 L - Imaging Impressions Abdomen X-Ray 03/21/18 00:00 CONCLUSION: Nasogastric or orogastric tube tip in distal stomach. 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 Day 17 on the vent. She was extubated on 03/11 but a few hours after was reintubated and has not been able to be weaned off the vent. Pt is not on sedation, she is awake and following commands. Our service has been consulted for PEG placement. Surgery planning for tracheostomy tomorrow. Pts son and daughter at bedside. Plan: EGD with PEG placement tomorrow Obtain consent Hold TF after MN Already on Vancomycin Appreciate dietary recommendations Glucedrna 1.5 with goal rate 50 mL/hr Jamal 1 packed BID for wound healing Further recommendations following PEG placement Pt has been seen and examined by myself and Dr. Sutton and this note is written on his behalf <Katty Mistry - Last Filed: 03/21/18 12:22> (1) Dysphagia Status: Acute Code(s): R13.10 - Dysphagia, unspecified - Attending Attestation Patient seen and examined agree with above Continue with current supportive care Monitor labs PEG placement was discussed with the patient and the son and the daughter at bedside and they appear to be receptive and consenting to have PEG placement will tentatively planned for tomorrow <Gume Sutton E - Last Filed: 03/21/18 18:32>
[2018-03-21] MEDS: Chlorhexidine 0.12% Oral Kit 15 ML UDC OROPHARYNG SCH ×2 (13:56→22:19)
[2018-03-21] MEDS: Dextrose 5%/NaCl 0.9% Inj 1,000 ML IV.CONT SCH ×2 (15:29→18:59)
--- NOTE | 2018-03-21 16:47 | P.PNID ---
Subjective Remarks: Patient is on the ventilator. Family is at bedside. Awake. No distress. Following commands. Not able to wean off vent. Afebrile. Repeat sputum culture has Stenotrophomonas. Sputum culture had Stenotrophomonas from 03/11/2018. Antibiotics: Vancomycin Levaquin. Lines: R. subclavian without evidence of infection. Past Medical History: Diabetes mellitus, hypertension, hypothyroidism, systemic lupus erythematosus, rheumatoid arthritis, anemia, recent subarachnoid hemorrhage, C6 mass resection, hysterectomy, bladder sling, appendectomy, C4-C7 laminectomy, C4-T1 posterior fusion. Allergies/Adverse Reactions: Allergies codeine Allergy (Intermediate, Verified 01/24/18 17:12) nitroglycerin Adverse Reaction (Severe, Verified 01/25/18 09:14) Nausea/Vomiting Objective Vital Signs 03/20/18 20:00 03/20/18 20:04 03/20/18 21:00 Temperature 100.2 F H Pulse Rate 137 H 128 H Respiratory Rate 21 24 19 Blood Pressure 132/84 106/70 Pulse Oximetry 100 100 100 03/20/18 21:30 03/20/18 22:00 03/20/18 22:31 Temperature Pulse Rate 102 H 103 H 97 H Respiratory Rate 18 18 27 H Blood Pressure 98/60 L 97/62 L 116/66 Pulse Oximetry 100 100 78 L 03/20/18 23:00 03/20/18 23:30 03/21/18 00:00 Temperature 99.3 F Pulse Rate 96 H 96 H 91 H Respiratory Rate 16 16 16 Blood Pressure 104/59 L 97/66 L 109/60 Pulse Oximetry 100 100 100 03/21/18 00:07 03/21/18 00:30 03/21/18 01:00 Temperature Pulse Rate 90 88 Respiratory Rate 16 16 16 Blood Pressure 97/53 L Pulse Oximetry 100 100 100 03/21/18 01:01 03/21/18 01:30 03/21/18 02:00 Temperature Pulse Rate 87 90 83 Respiratory Rate 16 16 16 Blood Pressure 114/55 L 107/66 95/58 L Pulse Oximetry 100 100 100 03/21/18 02:31 03/21/18 03:00 03/21/18 03:31 Temperature Pulse Rate 83 80 79 Respiratory Rate 16 16 16 Blood Pressure 105/56 L 102/59 L 115/57 L Pulse Oximetry 100 100 100 03/21/18 03:57 03/21/18 04:00 03/21/18 04:30 Temperature 97.7 F Pulse Rate 80 83 Respiratory Rate 16 16 16 Blood Pressure 112/60 104/58 L Pulse Oximetry 100 100 100 03/21/18 05:00 03/21/18 05:02 03/21/18 05:30 Temperature Pulse Rate 88 90 82 Respiratory Rate 18 18 Blood Pressure 124/82 103/61 Pulse Oximetry 100 100 03/21/18 06:00 03/21/18 06:30 03/21/18 07:00 Temperature Pulse Rate 81 84 75 Respiratory Rate 16 16 Blood Pressure 112/67 134/71 113/67 Pulse Oximetry 100 100 03/21/18 07:30 03/21/18 08:00 03/21/18 08:30 Temperature 98.3 F Pulse Rate 74 73 74 Respiratory Rate 18 16 16 Blood Pressure 112/67 113/71 107/64 Pulse Oximetry 99 100 100 03/21/18 09:20 03/21/18 12:00 03/21/18 15:59 Temperature 98.4 F Pulse Rate 109 H Respiratory Rate 16 16 22 Blood Pressure 92/64 L Pulse Oximetry 100 100 100 Intake & Output 03/20/18 03/21/18 03/21/18 18:59 06:59 18:59 Intake Total 1965 / 1964 1588 / 1588 50 / 50 Output Total 875 / 875 850 / 850 Balance 1089 / 1089 738 / 738 50 / 50 Weight 78.5 kg 78.9 kg Intake: IV 1496 / 1496 1150 / 1150 50 / 50 Precedex Inj 200 MCG In NS Inj 96 / 96 150 / 150 50 / 50 48 ML @ 0.2 MCG/KG/HR 3.53 mls/ hr IV.CONT TITRATE PRN Rx#: [id number] D5W/Normal Saline Inj 1,000 ML 1000 / 1000 1000 / 1000 @ 50 mls/hr IV.CONT .Q20H KARINA Rx#:[id number] Levaquin 750 mg Premix Inj 150 150 / 150 ML @ 100 mls/hr IV.SIG Q24H KARINA Rx#:[id number] Vancomycin Inj 1,000 MG In NS 250 / 250 Inj 250 ML @ 250 mls/hr IV.SIG Q12H KARINA Rx#:[id number] Oral 0 / 0 0 / 0 Tube Feeding 318 / 318 288 / 288 Tube Irrigant 0 / 0 0 / 0 Water Bolus Amount 150 / 150 150 / 150 Output: Urine 875 / 875 850 / 850 Stool 0 / 0 0 / 0 Urine/Stool Mix 0 / 0 0 / 0 Other: Date of Last Bowel Movement 03/20/18 03/21/18 03/21/18 # Bowel Movements 0 0 # Incontinent Bowel Movements 2 2 # Emeses 1 0 # Oral Regurgitations 1 0 03/16/18 19:40 Blood - Line Aerobic Blood Culture - Final No growth in 5 days 03/16/18 19:40 Blood - Line Anaerobic Blood Culture - Final No growth in 5 days 03/16/18 19:45 Blood - Line Aerobic Blood Culture - Final No growth in 5 days 03/16/18 19:45 Blood - Line Anaerobic Blood Culture - Final No growth in 5 days Lab - Hematology Results 03/20/18 03/21/18 04:00 04:30 WBC 6.2 5.4 RBC 2.78 L 2.67 L Hgb 8.6 L 8.0 L Hct 25.0 L 24.0 L MCV 90.1 89.7 MCH 30.8 29.9 MCHC 34.2 33.3 RDW 16.5 17.2 Plt Count 97 L 99 L MPV 8.3 8.8 Prelim Diff (Auto) Slide review pending Slide review pending Neut % (Auto) 79.0 H 70.6 H Lymph % (Auto) 13.3 21.0 [place] % (Auto) 6.8 6.8 Eos % (Auto) 0.7 1.5 Baso % (Auto) 0.2 0.1 Neut # (Auto) 4.9 3.8 Lymph # (Auto) 0.8 L 1.1 [place] # (Auto) 0.4 0.4 Eos # (Auto) 0.0 0.1 Baso # (Auto) 0.0 0.0 WBC Differential Manual diff final Manual diff final Seg Neuts % (Manual) 72 H 46 Band Neuts % (Manual) 15 H 38 H Lymphocytes % (Manual) 6 L 7 L Monocytes % (Manual) 7 8 Eosinophils % (Manual) 1 Abs Neuts (Manual) 5.4 4.5 Differential Comment . . Dohle Bodies Present H Platelet Estimate Low L Low L Platelet Morphology Normal Normal RBC Morphology Normal Lab - Chemistry Results 03/20/18 03/20/18 03/20/18 04:00 15:34 23:17 Sodium 145 Potassium 3.2 L Chloride 113 H Carbon Dioxide 23.8 Anion Gap 8 BUN 8 Creatinine Less than 0.15 L Estimated GFR Greater than 89 POC Glucose 104 113 H Random Glucose 118 H Calcium 6.9 L* Prot Corrected Calcium 8.3 L Phosphorus 2.9 Magnesium 1.7 Total Bilirubin 0.2 AST 41 H ALT 18 Alkaline Phosphatase 237 H Total Protein 4.5 L Albumin 0.9 L 03/21/18 03/21/18 04:22 04:30 Sodium 145 Potassium 3.1 L Chloride 113 H Carbon Dioxide 22.7 Anion Gap 9 BUN 10 Creatinine Less than 0.15 L Estimated GFR Greater than 89 POC Glucose 138 H Random Glucose 123 H Calcium 7.0 L* Prot Corrected Calcium 8.5 Phosphorus 2.1 L Magnesium 1.7 Total Bilirubin 0.3 AST 30 ALT 17 Alkaline Phosphatase 312 H Total Protein 4.3 L Albumin 0.8 L Imaging: ITS Impressions Head CT 03/12/18 06:59 CONCLUSION: 1. No acute intracranial abnormality. 2. Minimal fluid in the mastoid air cells. Cervical Spine MRI 03/16/18 00:00 CONCLUSION: 1. Persistent abnormal signal in the cord extending from C4 down to T1. Much of this likely related to edema. The edema appears to extend over a smaller area on the current exam. There is a linear area of increased signal seen on the T1 and T2-weighted images at the left-sided cord at the C7-T1 level which may represent an area of focal hemorrhage within the cord. 2. Status post laminectomy with posterior fusion and hardware placed at the C4- T1 levels. 3. Prevertebral soft tissue swelling. 4. No focal fluid collection to suggest an abscess is seen. Head MRI 03/16/18 00:00 CONCLUSION: 1. There is a new area of nodular enhancement, abnormal FLAIR signal, and mild restricted diffusion at the baeza matter white matter junction in the left occipital lobe. 3 additional small areas of nodular enhancement measuring approximately 3 mm are also identified along the baeza matter surface in the left parietal high convexity. Etiology is nonspecific. Metastatic disease is one consideration but given the history infection is another consideration. Suggest attention to these areas at follow-up imaging. 2. Increased fluid in the mastoid air cells bilaterally. Chest X-Ray 03/20/18 06:00 CONCLUSION: Endotracheal tube tip in left mainstem bronchus. Bilateral mostly basilar airspace disease and effusions similar to March 19. Abdomen X-Ray 03/21/18 00:00 CONCLUSION: Nasogastric or orogastric tube tip in distal stomach. Physical Exam: GENERAL: No acute distress. HEENT: Pupils reactive to light. No icterus. NECK: Supple. No swelling. LUNGS: Clear breath sounds. HEART: Regular S1 and S2. No murmurs rubs or gallops. ABDOMEN: Soft, nontender. EXTREMITIES: No clubbing or cyanosis. Bilateral hand edema. SKIN: No rash. NEUROLOGIC: Unable to fully assess. PSYCH: Unable to fully assess. Assessment and Plan - Plan IMPRESSION: ESBL E. coli bacteremia. Treated. ESBL E. coli UTI. Pneumonia due to stenotrophomonas. Acute respiratory failure. Status post cervical spine surgery. Brain lesions on MRI. 3 enhancing nodular lesions seen in the left parietal area. Recent subarachnoid hemorrhage. Reviewed neurosurgery note. PLAN: Continue Levaquin for Stenotrophomonas. Continue vancomycin. Monitor progress Monitor temps Family and patient plans for Trach and PEG.
--- NOTE | 2018-03-21 18:00 | P.CONPAL ---
Consult Service: Palliative Care . Requesting Physician: Jonathon Rodriguez Reason for Consult: a. To assist with evaluation and management of symptoms including: dyspnea; generalized weakness; pain b. To assist medical decision maker(s) with: better understanding of current medical conditions; weighing benefits/burdens of medical treatment options; making medical treatment decisions. . Primary Care Provider: CESAR EL . History of Present Illness History of Present Illness: Ms. Anne is a 62 y/o [place] female with known underlying diabetes mellitus; hypertension; rheumatoid arthritis; systemic lupus erythematosus (x 27 years); anemia; thrombocytopenia; who has had a series of emergency room visits and hospitalizations here since January 2018. 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 In April,, she began losing weight and becoming progressively weak. Weight dropped from approximately 115 pounds down to 82 pounds. Family noted she was sleeping a lot. She was initially diagnosed with a thyroid problem and appeared to have some improvement when she was started on levothyroxine. She was also noted to have anemia and thrombocytopenia. The patient had been on Plaquenil and steroids for her lupus and arthritis--these were discontinued approximately 1.5-2 years ago. The patient had multiple visits for a variety of symptoms in early January. These included back pain, nausea, headaches, vomiting, loss of appetite, etc. In late January she developed pain in the neck and at the back of her head and left side which went down her shoulder. She subsequently noticed numbness in the left lower leg and the left hand would not work. Imaging showed a mild subarachnoid and intraventricular hemorrhage. She was admitted to the hospital on 01/24/18. Neurology noted left ptosis, weakness of the left arm from C7 down , entire weakness of the left lower extremity. 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 She was transferred to [facility] on 01/30/18. On 02/03/18 she underwent C6 mass resection (this was negative for malignancy; family reports 90 % of the tumor was removed), as well as C4-T1 fusion, C4-C7 laminectomy. During this hospitalization she was treated for hyponatremia and hypomagnesemia. 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 She was treated with IV steroids. She was treated with CellCept and discharged on a CellCept taper. She required platelet transfusion when platelets went down as low as 57. She also developed a ESBL positive UTI The patient was discharged back to [place] into [facility] service on 02/27/18. She was only on the rehab service approximately 2 days when she developed hypotension and tachycardia. She was transferred to the intensive care unit where was felt she had septic shock. Temperature reached 103.2 on . Blood culture from 03/01/18 was positive for E. coli ESBL. On 03/05/18 the patient developed worsening respiratory distress and required intubation and mechanical ventilation. Pressor support was also required. She developed A. fib with RVR and required amiodarone. The patient was extubated on 03/11 after tolerating some spontaneous breathing trials. Unfortunately she required reintubation later that night for respiratory distress and altered mental status. She has remained on the ventilator since that time. Brain MRI on 03/16/18 showed a new area of nodular enhancement in the left occipital lobe and 3 additional smaller areas of nodular and had cement in the left parietal high convexity. These are of uncertain etiology. Infection was another consideration. Metastatic disease was a concern. Repeat cervical spine MRI on 03/16/18 showed evidence of edema and/or hemorrhage within the cord. Intensivists feel that ongoing aggressive care will require tracheostomy and PEG tube placement. There is been some ambivalence on the part of both patient and family. At the time of my visit, patient is quite sleepy and unable to provide much information. History comes from the medical record and from family members. Earlier today, the patient indicated she did not want to go forward with tracheostomy and PEG tube placement. Later when speaking with her alone she indicated she would agree to the procedures. Patient is unable to provide her own review of systems at this time. Per family , review of systems is otherwise negative other than the problems noted above. . Function/Cognitive Trajectory: The patient has had lupus for approximately 27 years. It primarily impacted her with dry eyes, rash on the back, and an occasional facial rash. Plaquenil was stopped because it impacted her vision. She been taking prednisone at 5 mg a day which was stopped approximately 1.5-2 years ago. In December 2015 her minilab operator recommended that she start 1 of the Biolog[employer]. This was not started as she could not afford it. As noted above, the patient has had a fairly significant decline for almost a year. . Review of Systems All other systems reviewed negative except as stated in HPI PMFSH - History History Provided By: Family Member, Medical Record - Medical History Medical History: Medical History (Last Updated 03/21/18 @ 18:18 by Anselmo Douglas MD) Rheumatoid arthritis (Acute) Subarachnoid hemorrhage (Acute) Thrombocytopenia (Acute) Anemia (Acute) Hypothyroidism (Acute) Hypertension (Acute) Diabetes mellitus (Acute) Lupus (systemic lupus erythematosus) (Acute) History of hysterectomy Left renal mass - Surgical History Surgical History: Surgical History (Last Updated 03/21/18 @ 18:42 by Anselmo Douglas MD) S/P laminectomy with spinal fusion (Acute) History of bladder surgery (Acute) History of appendectomy S/P laminectomy with spinal fusion - Family History Family History: Family History (Last Updated 03/21/18 @ 18:37 by Anselmo Douglas MD) Mother Myocardial infarction Other Diabetes mellitus Hypertension - Tobacco History Second Hand Smoke Exposure: No Tobacco Use In Past 30 Days: No Smoking Status: Never smoker - Alcohol History How Often Do You Have a Drink Containing Alcohol: Never - Substance Use History Substance History: No History of Abuse - Travel History History of Recent Travel: No Recent Travel in the [place] Within the Last 8 Weeks: No Recent Travel Out of the Country Within the Last 8 Weeks: No Medications and Allergies Active Medications: Active Medications Acetaminophen (Tylenol) 650 mg PO Q6H PRN PRN Reason: PAIN 1-5 AND/OR FEVER > 101F Last Admin: 03/20/18 20:40 Dose: 650 mg Albuterol (Albuterol Neb (Prn)) 2.5 mg NEB Q2HR NEB PRN PRN Reason: DYSPNEA Artificial Tears (Genteal Severe Dry Eye Relief 0.3% Opth Gel) 1 drops EACH EYE Q8H [facility] Last Admin: 03/21/18 13:58 Dose: 1 drops Chlorhexidine Gluconate (Peridex 0.12% Oral Kit) 15 ml OROPHARYNG BID@0800, 2000 [facility] Last Admin: 03/21/18 13:56 Dose: 15 ml Collagenase (Santyl Oint) 1 applicatio TOPICAL Q24H [facility] Last Admin: 03/20/18 16:16 Dose: 1 applicatio Cyclobenzaprine HCl (Flexeril) 5 mg PO TID [facility] Last Admin: 03/21/18 09:00 Dose: 5 mg Dextrose (D50w Vial) 50 ml IV.PUSH UNSCH PRN PRN Reason: PER HYPOGLYCEMIA PROTOCOL Gabapentin (Neurontin) 600 mg PO TID [facility] Last Admin: 03/21/18 09:00 Dose: 600 mg Glucagon (Glucagon Inj) 1 mg OTHER PRN PRN PRN Reason: for Hypoglycemia Protocol Magnesium Sulfate Inj 4 gm/ (Sodium Chloride) 100 mls @ 50 mls/hr IV.SIG UNSCH PRN PRN Reason: For Magnesium 0.9 - 1.1 mg/dL Magnesium Sulfate Inj 2 gm/ (Sodium Chloride) 100 mls @ 50 mls/hr IV.SIG UNSCH PRN PRN Reason: For Magnesium 1.2 - 1.6 mg/dL Potassium Chloride (Kcl 40 Meq Premix Inj) 40 meq in 100 mls @ 25 mls/hr IV.SIG Q2H PRN PRN Reason: For Potassium 2.8 - 3.2 mEq/L Potassium Chloride (Kcl 40 Meq Premix Inj) 40 meq in 100 mls @ 25 mls/hr IV.SIG UNSCH PRN PRN Reason: For Potassium 3.3 - 3.5 mEq/L Potassium Chloride (Kcl 20 Meq Premix Inj) 20 meq in 100 mls @ 50 mls/hr IV.SIG Q2H PRN PRN Reason: For Potassium 2.8 - 3.2 mEq/L Potassium Phosphate 30 mmol/ (Sodium Chloride) 260 mls @ 42 mls/hr IV.SIG UNSCH PRN PRN Reason: SEE LABEL COMMENTS Last Admin: 03/21/18 07:09 Dose: 42 mls/hr Sodium Phosphate 30 mmol/ (Sodium Chloride) 260 mls @ 42 mls/hr IV.SIG UNSCH PRN PRN Reason: For Phosphorus < 2.5 mg/dL Pharmacy Profile Note (Vancomycin Consult Pharmacy) 0 mls @ 0 mls/hr OTHER UNSCH [facility] Vancomycin HCl 1,000 mg/ (Sodium Chloride) 250 mls @ 250 mls/hr IV.SIG Q12H [facility] Last Admin: 03/21/18 06:28 Dose: 250 mls/hr Dextrose/Sodium Chloride (D5w/Normal Saline Inj) 1,000 mls @ 50 mls/hr IV.CONT .Q20H [facility] Last Admin: 03/21/18 15:29 Dose: 84 mls/hr Levofloxacin/Dextrose (Levaquin 750 Mg Premix Inj) 150 mls @ 100 mls/hr IV.SIG Q24H [facility] Last Admin: 03/21/18 14:00 Dose: 100 mls/hr Dexmedetomidine HCl 200 mcg/ (Sodium Chloride) 50 mls @ 3.53 mls/hr IV.CONT TITRATE PRN; Protocol PRN Reason: Per Protocol Last Admin: 03/21/18 09:03 Dose: 1 mcg/kg/hr, 17.65 mls/hr Propofol (Diprivan 1000 Mg/100 Ml Inj) 1,000 mg in 100 mls @ 2.118 mls/hr IV.CONT TITRATE PRN; Protocol PRN Reason: Per Protocol Last Titration: 03/20/18 04:33 Dose: 30 mcg/kg/min, 12.71 mls/hr Insulin Human Regular (Novolin R Supplemental Scale) 0 units SQ Q6HR [facility]; Protocol Last Admin: 03/21/18 06:27 Dose: Not Given Lansoprazole (Prevacid Solutab) 30 mg NG/OG DAILY [facility] Last Admin: 03/21/18 09:00 Dose: 30 mg Levothyroxine Sodium (Synthroid) 50 mcg PO DAILY@0600 [facility] Last Admin: 03/21/18 06:28 Dose: 50 mcg Magnesium Oxide (Mag-Ox) 800 mg PO UNSCH PRN PRN Reason: For Magnesium 1.2 - 1.6 mg/dL Last Admin: 03/14/18 05:37 Dose: 800 mg Magnesium Oxide (Mag-Ox) 800 mg PO UNSCH PRN PRN Reason: For Magnesium 1.2 - 1.6 mg/dL Metoprolol Tartrate (Lopressor Inj) 2.5 mg IV.PUSH Q6H PRN PRN Reason: RAPID HEART RATE Last Admin: 03/20/18 12:46 Dose: 2.5 mg Metoprolol Tartrate (Lopressor) 25 mg PO BID [facility] Last Admin: 03/21/18 09:00 Dose: 25 mg Miscellaneous (Pill Splitter) 1 each OTHER UNSCH PRN PRN Reason: SEE LABEL COMMENTS Miscellaneous Information ([facility] Ordered Lab Info) 0 each OTHER ONCE ONE Stop: 03/22/18 05:46 Ondansetron HCl (Zofran Odt) 4 mg PO Q6H PRN PRN Reason: NAUSEA OR VOMITING Last Admin: 03/13/18 05:49 Dose: 4 mg Oxybutynin Chloride (Ditropan) 5 mg PO Q8HR [facility] Last Admin: 03/21/18 13:59 Dose: 5 mg Potassium Bicarb/Potassium Chloride (K-Lyte Cl Eff) 50 meq PO UNSCH PRN PRN Reason: For Potassium 3.3 - 3.5 mEq/L Potassium Phosphate (K-Phos Original) 2,000 mg PO Q4H PRN PRN Reason: Phosphorus Less Than 2.5 mg/dL Potassium Phosphate (K-Phos Original) 2,000 mg PO UNSCH PRN PRN Reason: SEE LABEL COMMENTS Pravastatin Sodium (Pravachol) 20 mg PO DAILY [facility] Last Admin: 03/21/18 09:00 Dose: 20 mg Sodium Chloride (Ns Flush) 0 ml IV.FLUSH UNSCH [facility]; Protocol Last Admin: 03/20/18 20:38 Dose: Not Given Sodium Chloride (Ns Flush) 2 ml IV.FLUSH BID [facility]; Protocol Last Admin: 03/20/18 20:49 Dose: 2 ml Terbutaline Sulfate (Brethine Inj) 1 mg SQ UNSCH PRN PRN Reason: For Extravasation Tramadol HCl (Ultram) 50 mg PO Q8H PRN PRN Reason: PAIN 6-10 Last Admin: 03/10/18 03:17 Dose: 50 mg Allergies Allergy/AdvReac Type Severity Reaction Status Date / Time codeine Allergy Intermediate Verified 01/24/18 17:12 nitroglycerin AdvReac Severe Nausea/Vomi Verified 01/25/18 09:14 ting Home Medications Medication Instructions Recorded Confirmed Type Bactrim DS 1 tab PO BID 03/04/18 03/04/18 History Ditropan XL 5 mg PO Q8HR 03/04/18 03/04/18 History Lopressor 25 mg PO BID 03/04/18 03/04/18 History Multiple Vitamins 1 tab PO DAILY 03/04/18 03/04/18 History [id number] 1 tab PO Q4HR 03/04/18 03/04/18 History cyclobenzaprine 5 mg PO TID 03/04/18 03/04/18 History famotidine 20 mg PO BID 03/04/18 03/04/18 History gabapentin 600 mg PO TID 03/04/18 03/04/18 History levothyroxine 50 mcg PO DAILY 03/04/18 03/04/18 History lovastatin 20 mg PO DAILY 03/04/18 03/04/18 History metformin 500 mg PO BID 03/04/18 03/04/18 History mycophenolate mofetil 1,000 mg PO BID 03/04/18 03/04/18 History prednisone See Label Instructions .ROUTE 03/04/18 03/04/18 History .COMPLEX tramadol 50 mg PO Q8HR 03/04/18 03/04/18 History Advance Directives Living Will: No Healthcare Surrogate: No Power of Devops Architect: No Documented care wishes: No written documentation of health care preferences/wishes. . Today's verbally stated goals: Patient is unable to verbally express healthcare goals and preferences at this time. . Family/friends goals: Patient's family is actively trying to better understand patient's goals and preferences specifically to help decide on whether to go forward with tracheostomy and PEG tube placement. . Ethical and Legal Issues: When awake and alert, patient appears capacitated to make her own healthcare decisions. . Physical Exam Vital Signs: Vital Signs - 24 hr 03/20/18 20:00 03/20/18 20:04 03/20/18 21:00 Temperature 100.2 F H Pulse Rate 137 H 128 H Respiratory Rate 21 24 19 Blood Pressure 132/84 106/70 Pulse Oximetry 100 100 100 03/20/18 21:30 03/20/18 22:00 03/20/18 22:31 Temperature Pulse Rate 102 H 103 H 97 H Respiratory Rate 18 18 27 H Blood Pressure 98/60 L 97/62 L 116/66 Pulse Oximetry 100 100 78 L 03/20/18 23:00 03/20/18 23:30 03/21/18 00:00 Temperature 99.3 F Pulse Rate 96 H 96 H 91 H Respiratory Rate 16 16 16 Blood Pressure 104/59 L 97/66 L 109/60 Pulse Oximetry 100 100 100 03/21/18 00:07 03/21/18 00:30 03/21/18 01:00 Temperature Pulse Rate 90 88 Respiratory Rate 16 16 16 Blood Pressure 97/53 L Pulse Oximetry 100 100 100 03/21/18 01:01 03/21/18 01:30 03/21/18 02:00 Temperature Pulse Rate 87 90 83 Respiratory Rate 16 16 16 Blood Pressure 114/55 L 107/66 95/58 L Pulse Oximetry 100 100 100 03/21/18 02:31 03/21/18 03:00 03/21/18 03:31 Temperature Pulse Rate 83 80 79 Respiratory Rate 16 16 16 Blood Pressure 105/56 L 102/59 L 115/57 L Pulse Oximetry 100 100 100 03/21/18 03:57 03/21/18 04:00 03/21/18 04:30 Temperature 97.7 F Pulse Rate 80 83 Respiratory Rate 16 16 16 Blood Pressure 112/60 104/58 L Pulse Oximetry 100 100 100 03/21/18 05:00 03/21/18 05:02 03/21/18 05:30 Temperature Pulse Rate 88 90 82 Respiratory Rate 18 18 Blood Pressure 124/82 103/61 Pulse Oximetry 100 100 03/21/18 06:00 03/21/18 06:30 03/21/18 07:00 Temperature Pulse Rate 81 84 75 Respiratory Rate 16 16 Blood Pressure 112/67 134/71 113/67 Pulse Oximetry 100 100 03/21/18 07:30 03/21/18 08:00 03/21/18 08:30 Temperature 98.3 F Pulse Rate 74 73 74 Respiratory Rate 18 16 16 Blood Pressure 112/67 113/71 107/64 Pulse Oximetry 99 100 100 03/21/18 09:20 03/21/18 12:00 03/21/18 15:59 Temperature 98.4 F Pulse Rate 109 H Respiratory Rate 16 16 22 Blood Pressure 92/64 L Pulse Oximetry 100 100 100 I&O: Intake & Output 03/19/18 03/20/18 03/21/18 03/22/18 06:59 06:59 06:59 06:59 Intake Total 4202 / 4202 4783 / 4783 3552 / 3552 50 / 50 Output Total 6550 / 6550 1700 / 1700 1725 / 1725 Balance -2348 / -2348 3083 / 3083 1827 / 1827 50 / 50 Weight 75.8 kg 765.6 kg 78.9 kg Physical Exam: CONSTITUTIONAL/GENERAL: Thin, frail-appearing, weak appearing, sleepy female mechanically ventilated in an ICU bed. No obvious distress. Generalized edema. TUBES/LINES/DRAINS: Right subclavian line; peripheral IVs; orotracheal tube; orogastric tube; soft wrist restraints; Coleman catheter SKIN: No jaundice, rashes, or lesions. Generalized edema in the extremities. No wounds seen anteriorly. Skin temperature appropriate. Not diaphoretic. HEAD: Atraumatic. Normocephalic. EYES: Pupils equal and round and reactive. Extraocular motions intact. No scleral icterus. No injection or drainage. Fundi not examined. ENT: Appears to hear me. Nose without bleeding or purulent drainage. Throat without visible erythema, exudates, masses, or lesions though difficult to examine thoroughly due to intubations. NECK: Trachea midline. No palpable thyroid enlargement or nodularity. No cervical collar in place at this time. CARDIOVASCULAR: Regular rate and rhythm without murmurs, gallops, or rubs. No JVD. Peripheral pulses weak. RESPIRATORY/CHEST: Symmetric, unlabored respirations. Breath sounds equal bilaterally. No wheezes. Faint rhonchi bilaterally. GASTROINTESTINAL: Abdomen soft, non-tender, nondistended. No hepato-splenomegaly , or palpable masses. No guarding. Bowel sounds present. GENITOURINARY: Without palpable bladder distension. Coleman catheter in place. MUSCULOSKELETAL: Extremities without clubbing, cyanosis. Significant pitting edema in all extremities. No calf tenderness. No mottling. LYMPHATICS: No palpable cervical or supraclavicular adenopathy. NEUROLOGICAL: Opens eyes briefly to loud voice and exam. Quickly drifts off to sleep. Not following commands at this time. PSYCHIATRIC: No obvious anxiety/depression. no apparent hallucinations or other psychotic thought process. . Diagnostic Tests Laboratory: Laboratory Results - last 72 hr 03/18/18 03/19/18 03/19/18 21:40 00:39 03:50 WBC RBC Hgb Hct MCV MCH MCHC RDW Plt Count MPV Prelim Diff (Auto) Neut % (Auto) Lymph % (Auto) Craven % (Auto) Eos % (Auto) Baso % (Auto) Neut # (Auto) Lymph # (Auto) Craven # (Auto) Eos # (Auto) Baso # (Auto) WBC Differential Seg Neuts % (Manual) Band Neuts % (Manual) Lymphocytes % (Manual) Monocytes % (Manual) Eosinophils % (Manual) Abs Neuts (Manual) Differential Comment Dohle Bodies Platelet Estimate Platelet Morphology RBC Morphology Sodium 145 Potassium 3.5 Chloride 112 H Carbon Dioxide 24.8 Anion Gap 8 BUN 7 Creatinine 0.23 L Estimated GFR Greater than 89 POC Glucose 144 H Random Glucose 156 H Lactic Acid 1.5 Calcium 7.2 L* Prot Corrected Calcium 8.7 Phosphorus 2.8 Magnesium 1.8 Total Bilirubin AST ALT Alkaline Phosphatase Total Protein 4.5 L Albumin Vancomycin Trough 03/19/18 03/20/18 03/20/18 03:50 04:00 04:00 WBC 5.7 D 6.2 RBC 2.96 L 2.78 L Hgb 9.0 L 8.6 L Hct 26.4 L 25.0 L MCV 89.4 90.1 MCH 30.3 30.8 MCHC 33.9 34.2 RDW 16.3 16.5 Plt Count 126 L 97 L MPV 8.0 8.3 Prelim Diff (Auto) Slide review pending Neut % (Auto) 69.2 79.0 H Lymph % (Auto) 21.0 13.3 Craven % (Auto) 9.0 H 6.8 Eos % (Auto) 0.5 0.7 Baso % (Auto) 0.3 0.2 Neut # (Auto) 3.9 4.9 Lymph # (Auto) 1.2 0.8 L Craven # (Auto) 0.5 0.4 Eos # (Auto) 0.0 0.0 Baso # (Auto) 0.0 0.0 WBC Differential . Manual diff final Seg Neuts % (Manual) 72 H Band Neuts % (Manual) 15 H Lymphocytes % (Manual) 6 L Monocytes % (Manual) 7 Eosinophils % (Manual) Abs Neuts (Manual) 5.4 Differential Comment Auto diff final . Dohle Bodies Present H Platelet Estimate Low L Platelet Morphology Normal RBC Morphology Normal Sodium 145 Potassium 3.2 L Chloride 113 H Carbon Dioxide 23.8 Anion Gap 8 BUN 8 Creatinine Less than 0.15 L Estimated GFR Greater than 89 POC Glucose Random Glucose 118 H Lactic Acid Calcium 6.9 L* Prot Corrected Calcium 8.3 L Phosphorus 2.9 Magnesium 1.7 Total Bilirubin 0.2 AST 41 H ALT 18 Alkaline Phosphatase 237 H Total Protein 4.5 L Albumin 0.9 L Vancomycin Trough 03/20/18 03/20/18 03/20/18 04:00 15:34 23:17 WBC RBC Hgb Hct MCV MCH MCHC RDW Plt Count MPV Prelim Diff (Auto) Neut % (Auto) Lymph % (Auto) Craven % (Auto) Eos % (Auto) Baso % (Auto) Neut # (Auto) Lymph # (Auto) Craven # (Auto) Eos # (Auto) Baso # (Auto) WBC Differential Seg Neuts % (Manual) Band Neuts % (Manual) Lymphocytes % (Manual) Monocytes % (Manual) Eosinophils % (Manual) Abs Neuts (Manual) Differential Comment Dohle Bodies Platelet Estimate Platelet Morphology RBC Morphology Sodium Potassium Chloride Carbon Dioxide Anion Gap BUN Creatinine Estimated GFR POC Glucose 104 113 H Random Glucose Lactic Acid Calcium Prot Corrected Calcium Phosphorus Magnesium Total Bilirubin AST ALT Alkaline Phosphatase Total Protein Albumin Vancomycin Trough 3.1 L 03/21/18 03/21/18 03/21/18 04:22 04:30 04:30 WBC 5.4 RBC 2.67 L Hgb 8.0 L Hct 24.0 L MCV 89.7 MCH 29.9 MCHC 33.3 RDW 17.2 Plt Count 99 L MPV 8.8 Prelim Diff (Auto) Slide review pending Neut % (Auto) 70.6 H Lymph % (Auto) 21.0 Craven % (Auto) 6.8 Eos % (Auto) 1.5 Baso % (Auto) 0.1 Neut # (Auto) 3.8 Lymph # (Auto) 1.1 Craven # (Auto) 0.4 Eos # (Auto) 0.1 Baso # (Auto) 0.0 WBC Differential Manual diff final Seg Neuts % (Manual) 46 Band Neuts % (Manual) 38 H Lymphocytes % (Manual) 7 L Monocytes % (Manual) 8 Eosinophils % (Manual) 1 Abs Neuts (Manual) 4.5 Differential Comment . Dohle Bodies Platelet Estimate Low L Platelet Morphology Normal RBC Morphology Sodium 145 Potassium 3.1 L Chloride 113 H Carbon Dioxide 22.7 Anion Gap 9 BUN 10 Creatinine Less than 0.15 L Estimated GFR Greater than 89 POC Glucose 138 H Random Glucose 123 H Lactic Acid Calcium 7.0 L* Prot Corrected Calcium 8.5 Phosphorus 2.1 L Magnesium 1.7 Total Bilirubin 0.3 AST 30 ALT 17 Alkaline Phosphatase 312 H Total Protein 4.3 L Albumin 0.8 L Vancomycin Trough Result Diagrams: 03/21/18 04:30 03/21/18 04:30 Microbiology: Microbiology 03/16/18 19:40 Aerobic Blood Culture - Final Blood - Line No growth in 5 days Anaerobic Blood Culture - Final No growth in 5 days 03/16/18 19:45 Aerobic Blood Culture - Final Blood - Line No growth in 5 days Anaerobic Blood Culture - Final No growth in 5 days Imaging: Chest X-Ray 03/07/18 00:00 CONCLUSION: 1. Persistent left lower lobe consolidation and pleural effusion. 2. Interval resolution of diffuse infiltrates in the right lung and reduction in the infiltrates in the left upper lung. Chest X-Ray 03/09/18 08:51 CONCLUSION: 1. Interval removal of left subclavian central line. 2. Stable small left pleural effusion and associated airspace disease in the left lower lobe. 3. Continued improving aeration of the left upper lung zone. 4. Stable mild airspace disease in the right lower lung zone. Chest X-Ray 03/11/18 21:53 CONCLUSION: Basilar airspace disease and pleural effusions similar to March 09. Endotracheal tube tip just above raz. Head CT 03/12/18 06:59 CONCLUSION: 1. No acute intracranial abnormality. 2. Minimal fluid in the mastoid air cells. Chest X-Ray 03/12/18 21:40 CONCLUSION: Placement of a right central line with tip in right atrium. No pneumothorax. Chest X-Ray 03/14/18 06:00 CONCLUSION: 1. No significant interval change. 2. Stable tubes and lines. 3. Stable small bilateral pleural effusions and associated lower lung zone airspace disease. Chest X-Ray 03/15/18 06:00 CONCLUSION: 1. No significant interval change. 2. Stable tubes and lines. 3. Stable bilateral [id number] pleural effusions with associated lower lobe airspace disease. Cervical Spine MRI 03/16/18 00:00 CONCLUSION: 1. Persistent abnormal signal in the cord extending from C4 down to T1. Much of this likely related to edema. The edema appears to extend over a smaller area on the current exam. There is a linear area of increased signal seen on the T1 and T2-weighted images at the left-sided cord at the C7-T1 level which may represent an area of focal hemorrhage within the cord. 2. Status post laminectomy with posterior fusion and hardware placed at the C4- T1 levels. 3. Prevertebral soft tissue swelling. 4. No focal fluid collection to suggest an abscess is seen. Head MRI 03/16/18 00:00 CONCLUSION: 1. There is a new area of nodular enhancement, abnormal FLAIR signal, and mild restricted diffusion at the baeza matter white matter junction in the left occipital lobe. 3 additional small areas of nodular enhancement measuring approximately 3 mm are also identified along the baeza matter surface in the left parietal high convexity. Etiology is nonspecific. Metastatic disease is one consideration but given the history infection is another consideration. Suggest attention to these areas at follow-up imaging. 2. Increased fluid in the mastoid air cells bilaterally. Chest X-Ray 03/17/18 06:00 CONCLUSION: Better aeration of the lungs with bibasilar densities and small pleural effusions. Chest X-Ray 03/19/18 06:00 CONCLUSION: Endotracheal tube tip is engaged in the left mainstem bronchus. Retraction by couple of centimeters recommended. Otherwise stable chest Chest X-Ray 03/20/18 05:51 CONCLUSION: Endotracheal tube tip remains in left mainstem bronchus. This should be withdrawn about 3 cm. Bilateral mostly basilar airspace disease and small pleural effusions. Chest X-Ray 03/20/18 06:00 CONCLUSION: Endotracheal tube tip in left mainstem bronchus. Bilateral mostly basilar airspace disease and effusions similar to March 19. Abdomen X-Ray 03/21/18 00:00 CONCLUSION: Nasogastric or orogastric tube tip in distal stomach. Procedures: Intubation and mechanical ventilation Patient/Family Conference Present at Family Conference: Two daughters -- Teresa present in person; Lida was present via Rahul Sterling (Spouse) Dileep (Son-in-law) . Family Conference Time: 50 Family Conference Location: Consult Room Issues Discussed: * Palliative care role, purpose, approach * Additional medical, psychosocial, and spiritual history * Patients general health, functional status, and cognitive changes in the months leading up to the current hospitalization * Family understanding of the current medical problems * Family understanding of prognosis * Patients goals of care as best understood from conversations and/or values * Current medical treatment options and benefits/burdens of those options * Likely scenarios comparing ongoing aggressive care with a transition to comfort measures only * Questions answered to the best of my ability * Palliative care contact information provided . Assessment and Plan - Disease Oriented Problem List (1) Pancytopenia (2) Bacteremia (3) Rheumatoid arthritis (4) Subarachnoid hemorrhage (5) Thrombocytopenia (6) Anemia (7) Hypothyroidism (8) Diabetes mellitus (9) Lupus (systemic lupus erythematosus) (10) S/P laminectomy with spinal fusion Comment: for removal of benign tumor at [facility] 02/03/2018. 90% of tumor was removed. - Symptom Scale (1) Pain 0-10 Scale: 10 (2) Dyspnea 0-10 Scale: 10 (3) Generalized weakness 0-10 Scale: 10 Pertinent Non-Medical Issues: Psychosocial: Originally from [place]. Has lived in [place] since age 15 - - initially in [facility], and more recently in [place]. Patient is . Has 2 daughters --Lida lives in [place]; Sylvie lives in [place]. Spiritual: Patient alternates between Catholicism and nondenominational is him. Appreciate health services administrator visits. Legal: No advance directives. Ethical issues impacting care: Patient has periods of being awake and alert on the ventilator when she appears fully capacitated to make her own healthcare decisions. . Important Contacts: Teresa Willett (daughter) [phone] Dileep Willett (son in law) [phone] Asher (spouse) Lida (daughter) . Prognosis: Prognostication is challenging in this patient. She apparently began having significant weight loss and progressive generalized weakness dating back to April 2017. She was diagnosed with thyroid problems. There was also blood loss and thrombocytopenia. Patient also has lupus. She did seem to improve initially after her neurosurgery at [facility]. However she is quite debilitated. She seems to have had a new hemorrhage since her surgery. She developed septic shock after just a few days in rehab. It is unclear at this point what her neurologic recovery would look like. It is also unclear what is caused her thrombocytopenia and blood loss. Family reports that doctors at [facility] had wanted both a kidney biopsy and a bone marrow biopsy. The patient certainly has a long, hard, road ahead of her if she chooses aggressive care and due to her level of debility is likely to have complications along the way. . Code Status: Full Code Plan: == Code Status: Patient will remain full code until there are further conversations with the patient regarding goals. If there is a decision not to go forward with tracheostomy and PEG tube placement will likely change CODE STATUS to DNR. == Decision Making: When patient is awake and alert she seems to understand her medical condition and appears capacitated to make her own medical decisions. Should she become incapacitated, proxy decision making would fall to her spouse. At this time the spouse is consulting with the 2 daughters and son-in-law to help make medical decisions. == Goals of medical treatment: Patient was telling family early in the day that she had had enough and did not want to go forward with tracheostomy and PEG tube placement. Later in the day she told her she would agree to these procedures. Family is hoping that she awakens again this evening or tomorrow morning and they can speak to her once again about goals. Plan on making final decision regarding trach/PEG by AM 03/22/18 == Symptoms * Pain: Pain has been in the neck and back. Long history of arthritis pain impacting multiple joints from both lupus and rheumatoid arthritis. Patient also has other probable sources of discomfort including prolonged bedbound status; orotracheal intubation; orogastric intubation; vascular access line; restraints; urinary catheter.. She has not required opiate analgesics since 02/20. She does receive acetaminophen 650 mg as needed for pain levels of 1 through 5. * Dyspnea: Dyspnea appears adequately controlled by mechanical ventilation. No history of underlying respiratory problems. Possible pneumonia. May have some diaphragmatic weakness from spinal injury. == Infection: Continues to have low-grade fevers and a significant bandemia. Source is unclear. Neurosurgery and radiology has suggested that current MRI findings may be consistent with infection. 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 Source of this is unclear. Hematology and oncology have recommended a bone marrow biopsy. If family decides to continue with aggressive care it may be wills to obtain the bone marrow biopsy which may impact prognosis and decision making. == Lupus: Family reports that the patient had been started on Cellcept for her Lupus while at [facility]. She seemed to respond well to this medication. Also, seemed to be helped by steroids at [facility]. May want to consider. == Palliative care will continue to follow to assist with symptom management and to further clarify goals of medical treatment as the clinical course evolves. Appreciation Thank you for the opportunity to participate in the care of Cathie Anne. . Attestation Attestation: To help prompt me to consider important information that might be impacting today's encounter and assessment, information from prior notes written by myself or my colleagues may have been "brought forward" into today's note. My signature on this note, however, is an attestation that I personally performed the exam, history, and/or decision-making noted today, and, unless otherwise indicated, the interactions with patient, family, and staff as well as the review of records all occurred today. I also attest that the listed assessment and stated plan reflect my best clinical judgment today based on the combination of historical information, prior notes, and today's exam/ interactions. When time spent is documented, it refers only to time spent today by the signer, or if indicated, combined time spent today by collaborating physician/nurse practitioner. .
[2018-03-21] MEDS: Collagenase Oint 30 GM Tube TOPICAL SCH (18:03)
--- NOTE | 2018-03-21 18:10 | P.PNONC ---
Subjective Interval history: Intubated, at bedside. patient follows commands Objective Vital Signs/Intake & Output: Vital Signs 03/20/18 20:00 03/20/18 20:04 03/20/18 21:00 Temperature 100.2 F H Pulse Rate 137 H 128 H Respiratory Rate 21 24 19 Blood Pressure 132/84 106/70 Pulse Oximetry 100 100 100 03/20/18 21:30 03/20/18 22:00 03/20/18 22:31 Temperature Pulse Rate 102 H 103 H 97 H Respiratory Rate 18 18 27 H Blood Pressure 98/60 L 97/62 L 116/66 Pulse Oximetry 100 100 78 L 03/20/18 23:00 03/20/18 23:30 03/21/18 00:00 Temperature 99.3 F Pulse Rate 96 H 96 H 91 H Respiratory Rate 16 16 16 Blood Pressure 104/59 L 97/66 L 109/60 Pulse Oximetry 100 100 100 03/21/18 00:07 03/21/18 00:30 03/21/18 01:00 Temperature Pulse Rate 90 88 Respiratory Rate 16 16 16 Blood Pressure 97/53 L Pulse Oximetry 100 100 100 03/21/18 01:01 03/21/18 01:30 03/21/18 02:00 Temperature Pulse Rate 87 90 83 Respiratory Rate 16 16 16 Blood Pressure 114/55 L 107/66 95/58 L Pulse Oximetry 100 100 100 03/21/18 02:31 03/21/18 03:00 03/21/18 03:31 Temperature Pulse Rate 83 80 79 Respiratory Rate 16 16 16 Blood Pressure 105/56 L 102/59 L 115/57 L Pulse Oximetry 100 100 100 03/21/18 03:57 03/21/18 04:00 03/21/18 04:30 Temperature 97.7 F Pulse Rate 80 83 Respiratory Rate 16 16 16 Blood Pressure 112/60 104/58 L Pulse Oximetry 100 100 100 03/21/18 05:00 03/21/18 05:02 03/21/18 05:30 Temperature Pulse Rate 88 90 82 Respiratory Rate 18 18 Blood Pressure 124/82 103/61 Pulse Oximetry 100 100 03/21/18 06:00 03/21/18 06:30 03/21/18 07:00 Temperature Pulse Rate 81 84 75 Respiratory Rate 16 16 Blood Pressure 112/67 134/71 113/67 Pulse Oximetry 100 100 03/21/18 07:30 03/21/18 08:00 03/21/18 08:30 Temperature 98.3 F Pulse Rate 74 73 74 Respiratory Rate 18 16 16 Blood Pressure 112/67 113/71 107/64 Pulse Oximetry 99 100 100 03/21/18 09:20 03/21/18 12:00 03/21/18 15:59 Temperature 98.4 F Pulse Rate 109 H Respiratory Rate 16 16 22 Blood Pressure 92/64 L Pulse Oximetry 100 100 100 Intake & Output 03/20/18 03/21/18 03/21/18 18:59 06:59 18:59 Intake Total 1964 / 1963 1588 / 1588 50 / 50 Output Total 875 / 875 850 / 850 Balance 1089 / 1089 738 / 738 50 / 50 Weight 78.5 kg 78.9 kg Intake: IV 1496 / 1496 1150 / 1150 50 / 50 Precedex Inj 200 MCG In NS Inj 96 / 96 150 / 150 50 / 50 48 ML @ 0.2 MCG/KG/HR 3.53 mls/ hr IV.CONT TITRATE PRN Rx#: [id number] D5W/Normal Saline Inj 1,000 ML 1000 / 1000 1000 / 1000 @ 50 mls/hr IV.CONT .Q20H KARINA Rx#:[id number] Levaquin 750 mg Premix Inj 150 150 / 150 ML @ 100 mls/hr IV.SIG Q24H KARINA Rx#:[id number] Vancomycin Inj 1,000 MG In NS 250 / 250 Inj 250 ML @ 250 mls/hr IV.SIG Q12H KARINA Rx#:[id number] Oral 0 / 0 0 / 0 Tube Feeding 318 / 318 288 / 288 Tube Irrigant 0 / 0 0 / 0 Water Bolus Amount 150 / 150 150 / 150 Output: Urine 875 / 875 850 / 850 Stool 0 / 0 0 / 0 Urine/Stool Mix 0 / 0 0 / 0 Other: Date of Last Bowel Movement 03/20/18 03/21/18 03/21/18 # Bowel Movements 0 0 # Incontinent Bowel Movements 2 2 # Emeses 1 0 # Oral Regurgitations 1 0 Result Diagrams: 03/21/18 04:30 03/21/18 04:30 Laboratory Results: Laboratory Results - last 24 hr 03/20/18 03/21/18 03/21/18 23:17 04:22 04:30 WBC 5.4 RBC 2.67 L Hgb 8.0 L Hct 24.0 L MCV 89.7 MCH 29.9 MCHC 33.3 RDW 17.2 Plt Count 99 L MPV 8.8 Prelim Diff (Auto) Slide review pending Neut % (Auto) 70.6 H Lymph % (Auto) 21.0 Monroe % (Auto) 6.8 Eos % (Auto) 1.5 Baso % (Auto) 0.1 Neut # (Auto) 3.8 Lymph # (Auto) 1.1 Monroe # (Auto) 0.4 Eos # (Auto) 0.1 Baso # (Auto) 0.0 WBC Differential Manual diff final Seg Neuts % (Manual) 46 Band Neuts % (Manual) 38 H Lymphocytes % (Manual) 7 L Monocytes % (Manual) 8 Eosinophils % (Manual) 1 Abs Neuts (Manual) 4.5 Differential Comment . Platelet Estimate Low L Platelet Morphology Normal Sodium Potassium Chloride Carbon Dioxide Anion Gap BUN Creatinine Estimated GFR POC Glucose 113 H 138 H Random Glucose Calcium Prot Corrected Calcium Phosphorus Magnesium Total Bilirubin AST ALT Alkaline Phosphatase Total Protein Albumin 03/21/18 04:30 WBC RBC Hgb Hct MCV MCH MCHC RDW Plt Count MPV Prelim Diff (Auto) Neut % (Auto) Lymph % (Auto) Monroe % (Auto) Eos % (Auto) Baso % (Auto) Neut # (Auto) Lymph # (Auto) Monroe # (Auto) Eos # (Auto) Baso # (Auto) WBC Differential Seg Neuts % (Manual) Band Neuts % (Manual) Lymphocytes % (Manual) Monocytes % (Manual) Eosinophils % (Manual) Abs Neuts (Manual) Differential Comment Platelet Estimate Platelet Morphology Sodium 145 Potassium 3.1 L Chloride 113 H Carbon Dioxide 22.7 Anion Gap 9 BUN 10 Creatinine Less than 0.15 L Estimated GFR Greater than 89 POC Glucose Random Glucose 123 H Calcium 7.0 L* Prot Corrected Calcium 8.5 Phosphorus 2.1 L Magnesium 1.7 Total Bilirubin 0.3 AST 30 ALT 17 Alkaline Phosphatase 312 H Total Protein 4.3 L Albumin 0.8 L Culture Results: Microbiology 03/16/18 19:40 Aerobic Blood Culture - Final Blood - Line No growth in 5 days Anaerobic Blood Culture - Final No growth in 5 days 03/16/18 19:45 Aerobic Blood Culture - Final Blood - Line No growth in 5 days Anaerobic Blood Culture - Final No growth in 5 days Imaging Studies: Impressions Abdomen X-Ray 03/21/18 00:00 CONCLUSION: Nasogastric or orogastric tube tip in distal stomach. Medications: Active Medications Generic Name Dose Route Start Last Admin Trade Name Freq PRN Reason Stop Dose Admin Acetaminophen 650 mg 03/05/18 00:01 03/20/18 20:40 Tylenol PO 650 mg Q6H PRN Administration PAIN 1-5 AND/OR FEVER > 101F Artificial Tears 1 drops 03/16/18 11:00 03/21/18 13:58 Genteal Severe Dry Eye Relief 0.3% Opth Gel EACH EYE 1 drops Q8H KARINA Administration Chlorhexidine Gluconate 15 ml 03/12/18 08:00 03/21/18 13:56 Peridex 0.12% Oral Kit OROPHARYNG 15 ml BID@0800,2000 KARINA Administration Collagenase 1 applicatio 03/09/18 15:00 03/20/18 16:16 Santyl Oint TOPICAL 1 applicatio Q24H KARINA Administration Cyclobenzaprine HCl 5 mg 03/05/18 09:00 03/21/18 09:00 Flexeril PO 5 mg TID KARINA Administration Gabapentin 600 mg 03/05/18 09:00 03/21/18 09:00 Neurontin PO 600 mg TID KARINA Administration Potassium Phosphate 30 mmol/ 260 mls @ 42 mls/hr 03/07/18 06:54 03/21/18 07: 09 Sodium Chloride IV.SIG 42 mls/hr UNSCH PRN Administration SEE LABEL COMMENTS Vancomycin HCl 1,000 mg/ 250 mls @ 250 mls/hr 03/11/18 18:00 03/21/18 06:28 Sodium Chloride IV.SIG 250 mls/hr Q12H KARINA Administration Dextrose/Sodium Chloride 1,000 mls @ 50 mls/hr 03/12/18 17:45 03/21/18 15:29 D5w/Normal Saline Inj IV.CONT 84 mls/hr .Q20H KARINA Administration Levofloxacin/Dextrose 150 mls @ 100 mls/hr 03/14/18 14:00 03/21/18 14:00 Levaquin 750 Mg Premix Inj IV.SIG 100 mls/hr Q24H KARINA Administration Dexmedetomidine HCl 200 mcg/ 50 mls @ 3.53 mls/hr 03/16/18 20:55 03/21/18 09: 03 Sodium Chloride IV.CONT 1 mcg/kg/hr TITRATE PRN 17.65 mls/hr Per Protocol Administration Protocol 0.2 MCG/KG/HR Propofol 1,000 mg in 100 mls @ 2.118 mls/hr 03/18/18 10:50 03/20/18 04:33 Diprivan 1000 Mg/100 Ml Inj IV.CONT 30 mcg/kg/min TITRATE PRN 12.71 mls/hr Per Protocol Titration Protocol 5 MCG/KG/MIN Insulin Human Regular 0 units 03/13/18 18:00 03/21/18 06:27 Novolin R Supplemental Scale SQ Not Given Q6HR [facility] Protocol Lansoprazole 30 mg 03/17/18 09:00 03/21/18 09:00 Prevacid Solutab NG/OG 30 mg DAILY KARINA Administration Levothyroxine Sodium 50 mcg 03/05/18 06:00 03/21/18 06:28 Synthroid PO 50 mcg DAILY@0600 KARINA Administration Magnesium Oxide 800 mg 03/05/18 00:01 03/14/18 05:37 Mag-Ox PO 800 mg UNSCH PRN Administration For Magnesium 1.2 - 1.6 mg/dL Metoprolol Tartrate 2.5 mg 03/15/18 10:01 03/20/18 12:46 Lopressor Inj IV.PUSH 2.5 mg Q6H PRN Administration RAPID HEART RATE Metoprolol Tartrate 25 mg 03/20/18 15:00 03/21/18 09:00 Lopressor PO 25 mg BID KARINA Administration Ondansetron HCl 4 mg 03/05/18 00:01 03/13/18 05:49 Zofran Odt PO 4 mg Q6H PRN Administration NAUSEA OR VOMITING Oxybutynin Chloride 5 mg 03/05/18 06:00 03/21/18 13:59 Ditropan PO 5 mg Q8HR KARINA Administration Pravastatin Sodium 20 mg 03/05/18 09:00 03/21/18 09:00 Pravachol PO 20 mg DAILY KARINA Administration Sodium Chloride 0 ml 03/05/18 00:00 03/20/18 20:38 Ns Flush IV.FLUSH Not Given UNSCH [facility] Protocol Sodium Chloride 2 ml 03/18/18 21:00 03/20/18 20:49 Ns Flush IV.FLUSH 2 ml BID KARINA Administration Protocol Tramadol HCl 50 mg 03/05/18 00:00 03/10/18 03:17 Ultram PO 50 mg Q8H PRN Administration PAIN 6-10 Objective Remarks: GENERAL: chronically ill appearing lady in no distress SKIN: Warm and dry. HEAD: Normocephalic. EYES: No scleral icterus. No injection or drainage. NECK: c collar in place LYMPHATIC: No adenopathy. RESPIRATORY: intubated GASTROINTESTINAL: Abdomen soft, non-tender, nondistended. EXTREMITIES: edema of all 4 extremities NEUROLOGICAL: decreased ability to move left side Assessment/Plan (1) Pancytopenia Code(s): D61.818 - Other pancytopenia Status: Acute (2) Bacteremia Code(s): R78.81 - Bacteremia Status: Acute - Plan 1. Acute thrombocytopenia: secondary to sepsis, critical illness, antibiotics. 2. Anemia: of critical illness, occuring in the setting of sepsis. S/p transfusio of PRBC with appropriate response and stability of hemoglobin. i 3. Sepsis: on vancomycin and levaquin. ID team following. 4. Plan for trach and PEG tomorrow.
[2018-03-21 19:14] LABS: Potassium 3.9 meq/L (3.5-5.1)
[2018-03-22] MEDS: Insulin NovoLIN Regular Correctional Sugar Inj SQ SCH ×4 (00:20→18:48)
[2018-03-22] MEDS: Oral Hygiene Kit OROPHARYNG SCH ×3 (00:21→16:40)
[2018-03-22] MEDS: Dexmedetomidine Inj 200 MCG in Sodium Chlor 0.9% Inj 48 ML IV.CONT PRN ×2 (03:50→08:34)
[2018-03-22] MEDS: Hypromellose 0.3% Opth Gel 10 GM Bottle EACH EYE SCH ×3 (03:51→19:09)
[2018-03-22 04:21] LABS: Hematocrit 31.6 % (35.0-46.0); Hemoglobin 10.7 gm/dL (11.6-15.3)
[2018-03-22] MEDS ORDERED: Pharmacy Ordered Lab Info OTHER ONE (05:45)
[2018-03-22] MEDS: Levothyroxine 50 MCG Tablet PO SCH (05:45)
[2018-03-22] MEDS: Vancomycin Inj 1,000 MG in Sodium Chlor 0.9% Inj 250 ML IV.SIG SCH ×2 (05:46→19:09)
[2018-03-22] MEDS: Chlorhexidine 0.12% Oral Kit 15 ML UDC OROPHARYNG SCH ×2 (07:43→21:11)
[2018-03-22] MEDS: Metoprolol Tartrate 25 MG Tablet PO SCH ×2 (08:35→21:11)
[2018-03-22] MEDS: Gabapentin 300 MG Capsule PO SCH ×3 (08:35→19:08)
--- NOTE | 2018-03-22 14:35 | P.PNID ---
Subjective Remarks: Patient is on the ventilator. Family is at bedside. Awake. No distress. Following commands. Not able to wean off vent. Afebrile. Patient is not attempting to interact but being on the vent it is difficult to determine her mental status. Repeat sputum culture has Stenotrophomonas. Sputum culture had Stenotrophomonas from 03/11/2018. Antibiotics: Vancomycin Levaquin. Lines: R. subclavian without evidence of infection. Past Medical History: Diabetes mellitus, hypertension, hypothyroidism, systemic lupus erythematosus, rheumatoid arthritis, anemia, recent subarachnoid hemorrhage, C6 mass resection, hysterectomy, bladder sling, appendectomy, C4-C7 laminectomy, C4-T1 posterior fusion. Allergies/Adverse Reactions: Allergies codeine Allergy (Intermediate, Verified 01/24/18 17:12) nitroglycerin Adverse Reaction (Severe, Verified 01/25/18 09:14) Nausea/Vomiting Objective Vital Signs 03/21/18 15:59 03/21/18 16:00 03/21/18 19:36 Temperature 99.8 F H Pulse Rate 111 H Respiratory Rate 22 16 16 Blood Pressure 111/64 Pulse Oximetry 100 100 100 03/21/18 20:00 03/21/18 22:00 03/21/18 22:26 Temperature 99.2 F 99.2 F Pulse Rate 104 H 100 H 97 H Respiratory Rate 16 Blood Pressure 108/71 102/70 Pulse Oximetry 16 L 100 03/21/18 23:00 03/22/18 00:00 03/22/18 00:01 Temperature 99.2 F 98.8 F Pulse Rate 88 92 H 91 H Respiratory Rate 18 20 17 Blood Pressure 119/67 138/76 Pulse Oximetry 100 100 100 03/22/18 00:19 03/22/18 00:31 03/22/18 00:45 Temperature Pulse Rate 89 88 Respiratory Rate 16 16 16 Blood Pressure 120/76 112/76 Pulse Oximetry 100 100 100 03/22/18 00:46 03/22/18 01:00 03/22/18 01:31 Temperature 98.4 F Pulse Rate 87 86 93 H Respiratory Rate 17 16 16 Blood Pressure 112/76 121/77 144/76 H Pulse Oximetry 100 100 88 L 03/22/18 02:00 03/22/18 02:01 03/22/18 02:30 Temperature Pulse Rate 101 H 104 H 100 H Respiratory Rate 11 L 11 L 13 Blood Pressure 125/64 112/81 Pulse Oximetry 100 100 87 L 03/22/18 03:00 03/22/18 03:01 03/22/18 03:30 Temperature Pulse Rate 95 H 96 H 102 H Respiratory Rate 16 17 4 L Blood Pressure 137/55 L 123/66 Pulse Oximetry 100 100 100 03/22/18 04:00 03/22/18 04:30 03/22/18 04:35 Temperature 98.4 F Pulse Rate 103 H 99 H Respiratory Rate 16 14 16 Blood Pressure 122/78 116/75 Pulse Oximetry 100 100 100 03/22/18 05:00 03/22/18 05:30 03/22/18 06:00 Temperature Pulse Rate 104 H 96 H 112 H Respiratory Rate 17 16 23 Blood Pressure 113/75 111/67 Pulse Oximetry 100 100 100 03/22/18 06:03 03/22/18 06:30 03/22/18 07:00 Temperature Pulse Rate 112 H 97 H 94 H Respiratory Rate 16 15 16 Blood Pressure 136/74 114/65 111/59 L Pulse Oximetry 100 100 100 03/22/18 07:30 03/22/18 08:00 03/22/18 08:30 Temperature 98.4 F Pulse Rate 94 H 96 H 92 H Respiratory Rate 0 L 9 L 16 Blood Pressure 99/58 L 93/65 L 88/60 L Pulse Oximetry 100 100 100 03/22/18 09:00 03/22/18 09:30 03/22/18 10:00 Temperature Pulse Rate 90 84 84 Respiratory Rate 0 L 15 15 Blood Pressure 94/55 L 93/50 L 88/57 L Pulse Oximetry 100 100 100 03/22/18 10:31 03/22/18 11:00 Temperature Pulse Rate 88 94 H Respiratory Rate 2 L 16 Blood Pressure 100/53 L 96/63 L Pulse Oximetry 100 100 Intake & Output 03/21/18 03/22/18 03/22/18 18:59 06:59 18:59 Intake Total 1940 / 1940 995 / 995 52 / 52 Output Total 850 / 850 1325 / 1325 Balance 1090 / 1090 -330 / -330 52 / 52 Weight 73.2 kg Intake: IV 1502 / 1502 354 / 354 52 / 52 Precedex Inj 200 MCG In NS Inj 102 / 102 104 / 104 52 / 52 48 ML @ 0.2 MCG/KG/HR 3.53 mls/ hr IV.CONT TITRATE PRN Rx#: [id number] D5W/Normal Saline Inj 1,000 ML 1000 / 1000 @ 50 mls/hr IV.CONT .Q20H [facility] Rx#:[id number] Levaquin 750 mg Premix Inj 150 150 / 150 ML @ 100 mls/hr IV.SIG Q24H [facility] Rx#:[id number] Vancomycin Inj 1,000 MG In NS 250 / 250 250 / 250 Inj 250 ML @ 250 mls/hr IV.SIG Q12H [facility] Rx#:[id number] Oral 0 / 0 Tube Feeding 288 / 288 241 / 241 Tube Irrigant 0 / 0 Water Bolus Amount 150 / 150 Intake (Blood Product) Amt 400 / 400 Rbc As-3 Leukoreduced Unit 400 / 400 [id number] Output: Urine 850 / 850 650 / 650 Stool 0 / 0 Urine/Stool Mix 0 / 0 Urine Amount (Catheter) 675 / 675 Straight 675 / 675 Other: Date of Last Bowel Movement 03/21/18 03/22/18 03/22/18 # Bowel Movements 0 # Incontinent Bowel Movements 2 2 # Emeses 0 # Oral Regurgitations 0 03/16/18 19:40 Blood - Line Aerobic Blood Culture - Final No growth in 5 days 03/16/18 19:40 Blood - Line Anaerobic Blood Culture - Final No growth in 5 days 03/16/18 19:45 Blood - Line Aerobic Blood Culture - Final No growth in 5 days 03/16/18 19:45 Blood - Line Anaerobic Blood Culture - Final No growth in 5 days Lab - Hematology Results 03/21/18 03/22/18 04:30 03:20 WBC 5.4 RBC 2.67 L Hgb 8.0 L 10.7 L D Hct 24.0 L 31.6 L MCV 89.7 MCH 29.9 MCHC 33.3 RDW 17.2 Plt Count 99 L MPV 8.8 Prelim Diff (Auto) Slide review pending Neut % (Auto) 70.6 H Lymph % (Auto) 21.0 [place] % (Auto) 6.8 Eos % (Auto) 1.5 Baso % (Auto) 0.1 Neut # (Auto) 3.8 Lymph # (Auto) 1.1 [place] # (Auto) 0.4 Eos # (Auto) 0.1 Baso # (Auto) 0.0 WBC Differential Manual diff final Seg Neuts % (Manual) 46 Band Neuts % (Manual) 38 H Lymphocytes % (Manual) 7 L Monocytes % (Manual) 8 Eosinophils % (Manual) 1 Abs Neuts (Manual) 4.5 Differential Comment . Platelet Estimate Low L Platelet Morphology Normal Lab - Chemistry Results 03/20/18 03/20/18 03/21/18 15:34 23:17 04:22 Sodium Potassium Chloride Carbon Dioxide Anion Gap BUN Creatinine Estimated GFR POC Glucose 104 113 H 138 H Random Glucose Calcium Prot Corrected Calcium Phosphorus Magnesium Total Bilirubin AST ALT Alkaline Phosphatase Total Protein Albumin 03/21/18 03/21/18 03/21/18 04:30 18:18 23:31 Sodium 145 Potassium 3.1 L 3.9 D Chloride 113 H Carbon Dioxide 22.7 Anion Gap 9 BUN 10 Creatinine Less than 0.15 L Estimated GFR Greater than 89 POC Glucose 133 H Random Glucose 123 H Calcium 7.0 L* Prot Corrected Calcium 8.5 Phosphorus 2.1 L 3.0 Magnesium 1.7 Total Bilirubin 0.3 AST 30 ALT 17 Alkaline Phosphatase 312 H Total Protein 4.3 L Albumin 0.8 L 03/22/18 05:19 Sodium Potassium Chloride Carbon Dioxide Anion Gap BUN Creatinine Estimated GFR POC Glucose 109 Random Glucose Calcium Prot Corrected Calcium Phosphorus Magnesium Total Bilirubin AST ALT Alkaline Phosphatase Total Protein Albumin Imaging: ITS Impressions Head CT 03/12/18 06:59 CONCLUSION: 1. No acute intracranial abnormality. 2. Minimal fluid in the mastoid air cells. Cervical Spine MRI 03/16/18 00:00 CONCLUSION: 1. Persistent abnormal signal in the cord extending from C4 down to T1. Much of this likely related to edema. The edema appears to extend over a smaller area on the current exam. There is a linear area of increased signal seen on the T1 and T2-weighted images at the left-sided cord at the C7-T1 level which may represent an area of focal hemorrhage within the cord. 2. Status post laminectomy with posterior fusion and hardware placed at the C4- T1 levels. 3. Prevertebral soft tissue swelling. 4. No focal fluid collection to suggest an abscess is seen. Head MRI 03/16/18 00:00 CONCLUSION: 1. There is a new area of nodular enhancement, abnormal FLAIR signal, and mild restricted diffusion at the baeza matter white matter junction in the left occipital lobe. 3 additional small areas of nodular enhancement measuring approximately 3 mm are also identified along the baeza matter surface in the left parietal high convexity. Etiology is nonspecific. Metastatic disease is one consideration but given the history infection is another consideration. Suggest attention to these areas at follow-up imaging. 2. Increased fluid in the mastoid air cells bilaterally. Chest X-Ray 03/20/18 06:00 CONCLUSION: Endotracheal tube tip in left mainstem bronchus. Bilateral mostly basilar airspace disease and effusions similar to March 19. Abdomen X-Ray 03/21/18 00:00 CONCLUSION: Nasogastric or orogastric tube tip in distal stomach. Physical Exam: GENERAL: No acute distress. HEENT: Pupils reactive to light. EOMI. No icterus. NECK: Supple. No swelling. LUNGS: Clear breath sounds. HEART: Regular S1 and S2. No murmurs rubs or gallops. ABDOMEN: Soft, nontender. EXTREMITIES: No clubbing or cyanosis. Bilateral hand edema. SKIN: No rash. NEUROLOGIC: Unable to fully assess. PSYCH: Unable to fully assess. Assessment and Plan - Plan IMPRESSION: ESBL E. coli bacteremia. Treated. ESBL E. coli UTI. Pneumonia due to stenotrophomonas. Acute respiratory failure. Status post cervical spine surgery. Brain lesions on MRI. 3 enhancing nodular lesions seen in the left parietal area. Recent subarachnoid hemorrhage. Reviewed neurosurgery note. PLAN: Continue Levaquin for Stenotrophomonas. Continue vancomycin. Temperature has improved after starting Vanco. She has brain lesion on MRI also, unsure if this may be infection. Monitor progress Monitor temps Family notes that they cannot determine if patient wants trach or not.
--- NOTE | 2018-03-22 14:56 | P.PNCC ---
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 she was sent to [facility] for procedural management of these. She was then transferred to [place] [facility] on 02/28. Please see the dictated hospitalist consult note on 02/28 on admission to [place] for a detailed record of the hospital course while at [facility]. Today, she was found to be very tachycardic in the 160s and hypotensive with sbp in the 70s. She was emergently transferred to the ICU after rapid response was called for evaluation and management of her hypotension. Of note, she did not have iv access. I met her on arrival to the ICU. I placed 2 18g piv. 12-lead EKG confirms sinus tachycardia. I due to the fast rate, I gave 6mg adenosine to slow it down diagnostically, and it slowed down temporarily to a HR in the 70s, confirming sinus rhythm. I performed bedside critical care echocardiography which demonstrates grossly preserve biventricular function. in particular, RV is decompressed and well-functioning. IVC is completely collapsable. no pericardial effusion. I gave her 3L NS bolus ivf which improved her SBP to 110s and decreased her HR to 110s. She is afebrile. stat CBC shows anemia (history of recent femoral artery pseudoaneurysm), CMP demonstrates elevated AST and Alk phos, elevated lactate at 3.7. Cr elevated above baseline. Patient denies any complaints to me. she is mostly qatari speaking, but communicates in basic Nigerien. specifically denies chest pain, shortness of breath, fever/chills, nausea, vomiting, abdominal pain, constipation, diarrhea. I discussed with her family, she has been eating and drinking well even up to today. ROS otherwise negative. 03/02 Patient is awake lying in bed in TRAV. On room air oxygen. T:103.2 this morning She was hypotensive overnight initially placed on Neosyn now off pressor with BP 147/67 with MAP 96. 03/03 No events overnight. Seems more awake and alert this morning. T: 100.2 at midnight. BP and HR better ( 119/58 with MAP 83mmHg). On no pressors. BC from 03/01: E.coli ESBL 6/30: clinically improving. slightly tachycardic. on appropriate therapy for her ESBL e. coli. denies complaints. hemodynamically stable. on room air. 03/05: Patient developed worsening respiratory distress yesterday and required endotracheal intubation and was placed on mechanical ventilation. Hypotension overnight for which patient was started on phenylephrine. Developed A. fib with RVR and was started on amiodarone gtt. 03/06 Patient remains sedated and intubated. Tmax 101.6, On Amio drip. 03/07 Patient remains intubated off sedation. s/p transfusion 2u PRBC yesterday. Tolerating tube feeds. Afebrile. Off Amio drip. 03/08 Patient remains intubated. T:100.9 last night. 03/09 No events overnight. Tolerated CPAP for approx 4 hrs yesterday. Off sedation. Afebrile. 03/10 No events overnight T:100.1 at 4am, Awake, patient was on CPAP for short time yesterday and placed back on PRVC mode for low TV and tachycardia. 03/11 No events overnight. Tolerated CPAP x 4hrs yesterday. T:100.6 yesterday. On no sedation. 03/12 Patient was extubated yesterday reintubated last night for resp distress and AMS. Afebrile. On Diprivan infusion for sedation. 03/13: Remains intubated critical, remains encephalopathy unresponsive off sedation. Afebrile EEG showed significant encephalopathy no seizures. Right subclavian central line placed, remains on Luis-Synephrine to keep map above 65 03/14: Remains encephalopathy again unresponsive. Eyes are open but no tracking did not follow commands. Remains leukopenic. Weaned off Luis-Synephrine. Not tolerating CPAP due to low tidal volume 03/15: Continues to fail CPAP due to low tidal volume. IV Levaquin added yesterday by ID for stenotrophomonas in the sputum. Remains encephalopathic did not follow commands but eyes are spontaneously open. I have requested neurology consult today 03/16: T-max 100.1. Currently 99. EEG has been performed. Does not follow commands. Tube feeds at 30 cc an hour. Positive BM. 03/17 Patient remains intubated on Precedex drip but awake. 03/18 T-current 100.7. Tolerating tube feeds at goal. Arousable the ventilator and follows command. Left side is chronically weaker. Discussed with Dr. Gutierrez /neurology. Reviewed MRI brain. Recommended evaluation by neurosurgery for abnormal MRI C-spine. Patient's CT surgeon at [facility] is Dr. Ku [phone] 03/19: T-max 100.7. Currently 99. Tachycardic. Tolerated CPAP trial. On the ventilator currently. Positive BM yesterday. 03/20 Patient was on Diprivan and Precedex drip overnight now off sedation. Afebrile. 03/21: no improvements. has been intubated for 17 days, and failed extubation quickly 03/12. needs trach and peg for further progress. Subjective 03/22: Afebrile. Intubation day #18. Patient currently contemplating trach and PEG options. Currently off dexmedetomidine drip. Objective Vital Signs / I&O: Vital Signs 03/21/18 15:59 03/21/18 16:00 03/21/18 19:36 Temperature 99.8 F H Pulse Rate 111 H Respiratory Rate 22 16 16 Blood Pressure 111/64 Pulse Oximetry 100 100 100 03/21/18 20:00 03/21/18 22:00 03/21/18 22:26 Temperature 99.2 F 99.2 F Pulse Rate 104 H 100 H 97 H Respiratory Rate 16 Blood Pressure 108/71 102/70 Pulse Oximetry 16 L 100 03/21/18 23:00 03/22/18 00:00 03/22/18 00:01 Temperature 99.2 F 98.8 F Pulse Rate 88 92 H 91 H Respiratory Rate 18 20 17 Blood Pressure 119/67 138/76 Pulse Oximetry 100 100 100 03/22/18 00:19 03/22/18 00:31 03/22/18 00:45 Temperature Pulse Rate 89 88 Respiratory Rate 16 16 16 Blood Pressure 120/76 112/76 Pulse Oximetry 100 100 100 03/22/18 00:46 03/22/18 01:00 03/22/18 01:31 Temperature 98.4 F Pulse Rate 87 86 93 H Respiratory Rate 17 16 16 Blood Pressure 112/76 121/77 144/76 H Pulse Oximetry 100 100 88 L 03/22/18 02:00 03/22/18 02:01 03/22/18 02:30 Temperature Pulse Rate 101 H 104 H 100 H Respiratory Rate 11 L 11 L 13 Blood Pressure 125/64 112/81 Pulse Oximetry 100 100 87 L 03/22/18 03:00 03/22/18 03:01 03/22/18 03:30 Temperature Pulse Rate 95 H 96 H 102 H Respiratory Rate 16 17 4 L Blood Pressure 137/55 L 123/66 Pulse Oximetry 100 100 100 03/22/18 04:00 03/22/18 04:30 03/22/18 04:35 Temperature 98.4 F Pulse Rate 103 H 99 H Respiratory Rate 16 14 16 Blood Pressure 122/78 116/75 Pulse Oximetry 100 100 100 03/22/18 05:00 03/22/18 05:30 03/22/18 06:00 Temperature Pulse Rate 104 H 96 H 112 H Respiratory Rate 17 16 23 Blood Pressure 113/75 111/67 Pulse Oximetry 100 100 100 03/22/18 06:03 03/22/18 06:30 03/22/18 07:00 Temperature Pulse Rate 112 H 97 H 94 H Respiratory Rate 16 15 16 Blood Pressure 136/74 114/65 111/59 L Pulse Oximetry 100 100 100 03/22/18 07:30 03/22/18 08:00 03/22/18 08:30 Temperature 98.4 F Pulse Rate 94 H 96 H 92 H Respiratory Rate 0 L 9 L 16 Blood Pressure 99/58 L 93/65 L 88/60 L Pulse Oximetry 100 100 100 03/22/18 09:00 03/22/18 09:30 03/22/18 10:00 Temperature Pulse Rate 90 84 84 Respiratory Rate 0 L 15 15 Blood Pressure 94/55 L 93/50 L 88/57 L Pulse Oximetry 100 100 100 03/22/18 10:31 03/22/18 11:00 Temperature Pulse Rate 88 94 H Respiratory Rate 2 L 16 Blood Pressure 100/53 L 96/63 L Pulse Oximetry 100 100 Intake & Output 03/21/18 03/22/18 03/22/18 18:59 06:59 18:59 Intake Total 1940 / 1940 995 / 995 52 / 52 Output Total 850 / 850 1325 / 1325 Balance 1090 / 1090 -330 / -330 52 / 52 Weight 73.2 kg Intake: IV 1502 / 1502 354 / 354 52 / 52 Precedex Inj 200 MCG In NS Inj 102 / 102 104 / 104 52 / 52 48 ML @ 0.2 MCG/KG/HR 3.53 mls/ hr IV.CONT TITRATE PRN Rx#: [id number] D5W/Normal Saline Inj 1,000 ML 1000 / 1000 @ 50 mls/hr IV.CONT .Q20H [facility] Rx#:[id number] Levaquin 750 mg Premix Inj 150 150 / 150 ML @ 100 mls/hr IV.SIG Q24H [facility] Rx#:[id number] Vancomycin Inj 1,000 MG In NS 250 / 250 250 / 250 Inj 250 ML @ 250 mls/hr IV.SIG Q12H [facility] Rx#:[id number] Oral 0 / 0 Tube Feeding 288 / 288 241 / 241 Tube Irrigant 0 / 0 Water Bolus Amount 150 / 150 Intake (Blood Product) Amt 400 / 400 Rbc As-3 Leukoreduced Unit 400 / 400 [id number] Output: Urine 850 / 850 650 / 650 Stool 0 / 0 Urine/Stool Mix 0 / 0 Urine Amount (Catheter) 675 / 675 Straight 675 / 675 Other: Date of Last Bowel Movement 03/21/18 03/22/18 03/22/18 # Bowel Movements 0 # Incontinent Bowel Movements 2 2 # Emeses 0 # Oral Regurgitations 0 Result Diagrams: 03/22/18 03:20 03/21/18 18:18 Other Results: Microbiology 03/16/18 19:40 Blood - Line Aerobic Blood Culture - Final No growth in 5 days 03/16/18 19:40 Blood - Line Anaerobic Blood Culture - Final No growth in 5 days 03/16/18 19:45 Blood - Line Aerobic Blood Culture - Final No growth in 5 days 03/16/18 19:45 Blood - Line Anaerobic Blood Culture - Final No growth in 5 days 03/16/18 15:28 Catheterized Urine Urine Culture - Final No growth in 48 hours 03/15/18 04:50 Sputum - Endotracheal Gram Stain - Final 03/15/18 04:50 Sputum - Endotracheal Sputum Culture - Final Stenotrophomonas maltophilia 03/12/18 00:46 Blood - Peripheral Aerobic Blood Culture - Final No growth in 5 days 03/12/18 00:46 Blood - Peripheral Anaerobic Blood Culture - Final No growth in 5 days 03/12/18 00:40 Blood - Peripheral Aerobic Blood Culture - Final No growth in 5 days 03/12/18 00:40 Blood - Peripheral Anaerobic Blood Culture - Final No growth in 5 days 03/15/18 23:15 Stool Stool Occult Blood (ABEBE) - Final Hemoccult negative 03/11/18 22:30 Sputum - Endotracheal Gram Stain - Final 03/11/18 22:30 Sputum - Endotracheal Sputum Culture - Final Stenotrophomonas maltophilia 03/09/18 19:21 Blood - Peripheral Aerobic Blood Culture - Final No growth in 5 days 03/09/18 19:21 Blood - Peripheral Anaerobic Blood Culture - Final No growth in 5 days 03/09/18 19:28 Blood - Peripheral Aerobic Blood Culture - Final No growth in 5 days 03/09/18 19:28 Blood - Peripheral Anaerobic Blood Culture - Final No growth in 5 days 03/08/18 11:00 Blood - Peripheral Aerobic Blood Culture - Final No growth in 5 days 03/08/18 11:00 Blood - Peripheral Anaerobic Blood Culture - Final No growth in 5 days 03/08/18 11:09 Blood - Peripheral Aerobic Blood Culture - Final No growth in 5 days 03/08/18 11:09 Blood - Peripheral Anaerobic Blood Culture - Final No growth in 5 days 03/09/18 16:45 Sputum - Endotracheal Gram Stain - Final 03/09/18 16:45 Sputum - Endotracheal Sputum Culture - Final Heavy growth normal respiratory ramesh 03/06/18 05:12 Blood - Peripheral Aerobic Blood Culture - Final Staphylococcus coag negative 03/06/18 05:12 Blood - Peripheral Anaerobic Blood Culture - Final Staphylococcus epidermidis 03/05/18 15:33 Blood - Peripheral Aerobic Blood Culture - Final No growth in 5 days 03/05/18 15:33 Blood - Peripheral Anaerobic Blood Culture - Final Escherichia coli ESBL positive 03/08/18 17:55 Catheterized Urine Urine Culture - Final No growth in 48 hours 03/07/18 16:00 Sputum - Endotracheal Gram Stain - Final 03/07/18 16:00 Sputum - Endotracheal Sputum Culture - Final Heavy growth normal respiratory ramesh 03/05/18 12:55 Blood - Peripheral Aerobic Blood Culture - Final Escherichia coli ESBL positive 03/05/18 12:55 Blood - Peripheral Anaerobic Blood Culture - Final Escherichia coli ESBL positive Imaging: Chest X-Ray 03/07/18 00:00 CONCLUSION: 1. Persistent left lower lobe consolidation and pleural effusion. 2. Interval resolution of diffuse infiltrates in the right lung and reduction in the infiltrates in the left upper lung. Chest X-Ray 03/09/18 08:51 CONCLUSION: 1. Interval removal of left subclavian central line. 2. Stable small left pleural effusion and associated airspace disease in the left lower lobe. 3. Continued improving aeration of the left upper lung zone. 4. Stable mild airspace disease in the right lower lung zone. Chest X-Ray 03/11/18 21:53 CONCLUSION: Basilar airspace disease and pleural effusions similar to March 09. Endotracheal tube tip just above raz. Head CT 03/12/18 06:59 CONCLUSION: 1. No acute intracranial abnormality. 2. Minimal fluid in the mastoid air cells. Chest X-Ray 03/12/18 21:40 CONCLUSION: Placement of a right central line with tip in right atrium. No pneumothorax. Chest X-Ray 03/14/18 06:00 CONCLUSION: 1. No significant interval change. 2. Stable tubes and lines. 3. Stable small bilateral pleural effusions and associated lower lung zone airspace disease. Chest X-Ray 03/15/18 06:00 CONCLUSION: 1. No significant interval change. 2. Stable tubes and lines. 3. Stable bilateral [id number] pleural effusions with associated lower lobe airspace disease. Cervical Spine MRI 03/16/18 00:00 CONCLUSION: 1. Persistent abnormal signal in the cord extending from C4 down to T1. Much of this likely related to edema. The edema appears to extend over a smaller area on the current exam. There is a linear area of increased signal seen on the T1 and T2-weighted images at the left-sided cord at the C7-T1 level which may represent an area of focal hemorrhage within the cord. 2. Status post laminectomy with posterior fusion and hardware placed at the C4- T1 levels. 3. Prevertebral soft tissue swelling. 4. No focal fluid collection to suggest an abscess is seen. Head MRI 03/16/18 00:00 CONCLUSION: 1. There is a new area of nodular enhancement, abnormal FLAIR signal, and mild restricted diffusion at the baeza matter white matter junction in the left occipital lobe. 3 additional small areas of nodular enhancement measuring approximately 3 mm are also identified along the baeza matter surface in the left parietal high convexity. Etiology is nonspecific. Metastatic disease is one consideration but given the history infection is another consideration. Suggest attention to these areas at follow-up imaging. 2. Increased fluid in the mastoid air cells bilaterally. Chest X-Ray 03/17/18 06:00 CONCLUSION: Better aeration of the lungs with bibasilar densities and small pleural effusions. Chest X-Ray 03/19/18 06:00 CONCLUSION: Endotracheal tube tip is engaged in the left mainstem bronchus. Retraction by couple of centimeters recommended. Otherwise stable chest Chest X-Ray 03/20/18 05:51 CONCLUSION: Endotracheal tube tip remains in left mainstem bronchus. This should be withdrawn about 3 cm. Bilateral mostly basilar airspace disease and small pleural effusions. Chest X-Ray 03/20/18 06:00 CONCLUSION: Endotracheal tube tip in left mainstem bronchus. Bilateral mostly basilar airspace disease and effusions similar to March 19. Abdomen X-Ray 03/21/18 00:00 CONCLUSION: Nasogastric or orogastric tube tip in distal stomach. Objective Remarks: GENERAL: Patient is 62 yo female patient intubated and off sedation in no acute distress SKIN: Warm and dry. No rash. Sacral DTI HEAD: Normocephalic. EYES: No scleral icterus. No injection or drainage. NECK: Supple, trachea midline. No JVD or lymphadenopathy. CARDIOVASCULAR: RRR. S1, S2. No S4. Without murmur RESPIRATORY: Breath sounds equal bilaterally. No accessory muscle use. Diminished in the bases bilaterally. GASTROINTESTINAL: Abdomen soft, non-tender, nondistended. Hypoactive bowel sounds appreciated. MUSCULOSKELETAL: Trace bilateral lower extremity edema. NEURO: Arousable and follows commands with bilateral upper extremities. Nods head appropriately questions. She is Botswanan-speaking but can understand some Nigerien phrases. Assessment and Plan - Assessment and Plan Plan: Neuro/Psych: History of C6 vertebral aneurysm and underwent a C4 through T1 posterior fusion resection of the C6 mass which was negative for malignancy with 90% of mass removed, just showing inflammation, and a C4 through 7 laminectomy on 02/03/2018. Severe metabolic encephalopathy Recent aneurysmal subarachnoid hemorrhage treated at [facility] in January 2018 History of left occipital subarachnoid hemorrhage February 15, 2018 Cord edema possible hemorrhage within the cord level C7 through T1 Off Precedex drip , monitor neuro status Repeat CT brain showed no acute abnormalities. EEG significant encephalopathy [place] [facility] [place] further neurosurgical intervention anticipated at this point. MRI brain: previously noted subarachnoid hemorrhage overlying the occipital lobes has resolved. Tiny trace of residual hemorrhage in the posterior lateral ventricles. Stable chronic white matter changes. No new or acute intracranial process. Neurology consult requested Dr. Arellano/follow-up has followed EEG: Mod. encephalopathy MRI brain 03/16 : There is a new area of nodular enhancement, abnormal FLAIR signal, and mild restricted diffusion at the baeza matter white matter junction in the left occipital lobe. 3 additional small areas of nodular enhancement measuring approximately 3 mm are also identified along the baeza matter surface in the left parietal high convexity. Etiology is nonspecific. MRI cervical spine 03/16: Persistent abnormal signal in the cord extending from C4 down to T1. Much of this likely related to edema. The edema appears to extend over a smaller area on the current exam. There is a linear area of increased signal seen on the T1 and T2-weighted images at the left-sided cord at the C7-T1 level which may represent an area of focal hemorrhage within the cord. Status post laminectomy with posterior fusion and hardware placed at the C4-T1 levels. Prevertebral soft tissue swelling. No focal fluid collection to suggest an abscess. Currently on gabapentin 600 mg 3 times daily/home medication on hold for neuropathy pain Currently on cyclobenzaprine 5 mg every 8 hours. Hold secondary to AMS Acetaminophen 650 every 6 hours as needed fever C-collar is been removed Her neurosurgeon is Dr. Ku [phone] Pulm: Acute hypoxemic respiratory failure HCAP Extubated and reintubated on 03/11, failing CPAP trials due to low tidal volumes. PRVC 16/500/1//35 Ventilator bundle Albuterol/ipratropium aerosols every 4 hours with albuterol aerosols every 2 hours. Dyspnea Daily spontaneous breathing trials CT pulmonary angiogram chest: No PE, minimal consolidative changes left base has been > 18 days on mechanical ventilation. remains very weak with most likely myopathy of critical illness, poor tidal volumes. quickly failed trial of extubation 03/11. will require tracheostomy for further care. have consulted general surgery for trach. CV: A. fib/sinus tachycardia Septic shock- resolved. Hyperlipidemia Place on Lopressor 25mg Q12 Monitor HR and BP keep MAP>65mmHg. on IV metoprolol 2.5 mg every 6 hours PRN tachycardia Pravachol 20mg daily for dyslipidemia - Elevated troponin, type II demand ischemia NSTEMI - Echo 03/06 EF 50-55% - Will not anticoagulate at this time given risk/benefit with recent head bleed Cortisol level: 41 Cards has followed Renal/FEN/: Urinary retention Monitor renal function, electrolytes replacement per protocol. D5NS@50ml/hr Continue oxybutynin 5 mg every 8 hours d/c farmer and proceed with straight cath q6h. GI: Elevated AST, Alk phos Monitor LFT's, CT abd/pelvis without evidence of overt acute cholecystitis Tube feeds- Glucerna 1.5 with goal rate 45ml/hr Lansoprazole for GI prophylaxis Docusate sodium/senna 1 tablet twice daily for bowel regimen consult GI for PEG. ID: Urinary tract infection ESBL E. coli bacteremia Pneumonia with Stenotrophomonas s/p Septic shock ID is following Continue with abx per ID (levofloxacin, vancomycin) Recheck sputum cx Follow up blood cultures negative 03/11, 03/15 sputum Stenotrophomonas 03/07: Sputum cx: NG 03/08, 03/09 BC: NGTD 03/06 BC Coag negative staph 03/05 BC: E.coli bacteremia 03/01 BC: E.coli ESBL 03/01 Urine cx: GNR Heme: Normocytic anemia Thrombocytopenia likely 2nd sepsis -Monitor CBC, s/p 2u PRBC 03/06 Heme is following- Dr. Miller Hep PLT ab negative FEN TIBC both low Transfuse one PRBC 03/18 MSKRheum Sacral deep tissue injury SLE positive History of RF - present on admission - does not appear grossly infected - likely not the source of infection - management per wound care nurse Endo: SSI if needed for glycemic control On levothyroxine 50mcg daily. TSH: 0.47 GI prophylaxis- On lansoprazole 30 mg daily DVT prophylaxis- SCD, hold Heparin Sq due to recent [place] bleed in January ( MRI brain 01/29) and thrombocytopenia Lines: Right subclavian CVL. Maintained today. Possibly discontinue in a.m. 03/23 Level 2 follow-up
[2018-03-22] MEDS: Collagenase Oint 30 GM Tube TOPICAL SCH (16:30)
[2018-03-22] MEDS: Dextrose 5%/NaCl 0.9% Inj 1,000 ML IV.CONT SCH (16:40)
--- NOTE | 2018-03-22 16:46 | P.PNPAL ---
Reason for Visit Reason for visit: a. To assist with evaluation and management of symptoms including: dyspnea; generalized weakness; pain b. To assist medical decision maker(s) with: better understanding of current medical conditions; weighing benefits/burdens of medical treatment options; making medical treatment decisions. . Subjective Subjective/Interval History: Today to follow-up on goals/medical treatment decisions. Notified by nursing that patient is off of sedation somewhat more alert may be able to participate more in decision-making. Patient does remain on mechanical vent. She is remained stable overnight. Precedex drip has been held for a few hours this morning, today to further assess patient's mental status and ability to participate. She remains weak. CBC stable. No new imaging. Primary nurse contacted palliative care to assist with further evaluation of patient's ability to participate as she has been off of Precedex for a few hours. Patient seen in room with son, daughter, at bedside. She is awake though fairly flat/slightly lethargic. She does follow very simple commands to move extremities with significant weakness. She is unable to follow complex commands. She is unable to demonstrate with hands things such as show me one finger or 2 fingers etc. She is unable to hold a utensil to write. Attempt to explore her orientation/neurological status with yes/no questions. She answers most of my yes/no questions correctly such as is her birthday in [birth year], is the silvano green, is her middle name Meera, are you in [place]. Explained that she is in the hospital in [facility] due to ongoing illness and that we are concerned she may continue to require ventilation. I did explain very simply a tracheostomy breathing tube might need to be in her neck to help her breathing in order to continue with ventilator support asked her if she would want this procedure initially she does not reply. Then when repeated she shakes her head no. Then 1 receded again she says yes. Alternatively I explained that for some people they may not wants to have any more tubes or any more procedures and they may want alone, allowed to be comfortable and allowed to be as natural as possible even if that eventually resulted in their passing that they would be allowed to be comfortable until the end of the her life. Ask her if she would want us to take away all the tubes and just let her be comfortable first she nods YES to this, then NO, she does not answer this consistently. Primary nurse witnessed these repeated questions in varying formats, I could not get a consistent yes or no and her when asking in a variety of different ways. I do not feel that she is fully processing or understanding, and would still be best to have decision made by her appropriate healthcare proxy or surrogate. Spoke with family following at bedside. Review with him conditions, treatment options going forward and that decisions ultimately decision would be need to made by them regarding proceeding with trach and PEG. Recommend they consider what patient's wishes would be if she were able to understand and contribute at this time. She appears comfortable. No apparent distress.+ Generalized edema. Advance Directives Documented care wishes:: No written documentation of health care preferences/wishes. . Objective Vital Signs: Vital Signs 03/21/18 19:36 03/21/18 20:00 03/21/18 22:00 Temperature 99.2 F Pulse Rate 104 H 100 H Respiratory Rate 16 Blood Pressure 108/71 Pulse Oximetry 100 16 L 03/21/18 22:26 03/21/18 23:00 03/22/18 00:00 Temperature 99.2 F 99.2 F 98.8 F Pulse Rate 97 H 88 92 H Respiratory Rate 16 18 20 Blood Pressure 102/70 119/67 138/76 Pulse Oximetry 100 100 100 03/22/18 00:01 03/22/18 00:19 03/22/18 00:31 Temperature Pulse Rate 91 H 89 Respiratory Rate 17 16 16 Blood Pressure 120/76 Pulse Oximetry 100 100 100 03/22/18 00:45 03/22/18 00:46 03/22/18 01:00 Temperature 98.4 F Pulse Rate 88 87 86 Respiratory Rate 16 17 16 Blood Pressure 112/76 112/76 121/77 Pulse Oximetry 100 100 100 03/22/18 01:31 03/22/18 02:00 03/22/18 02:01 Temperature Pulse Rate 93 H 101 H 104 H Respiratory Rate 16 11 L 11 L Blood Pressure 144/76 H 125/64 Pulse Oximetry 88 L 100 100 03/22/18 02:30 03/22/18 03:00 03/22/18 03:01 Temperature Pulse Rate 100 H 95 H 96 H Respiratory Rate 13 16 17 Blood Pressure 112/81 137/55 L Pulse Oximetry 87 L 100 100 03/22/18 03:30 03/22/18 04:00 03/22/18 04:30 Temperature 98.4 F Pulse Rate 102 H 103 H 99 H Respiratory Rate 4 L 16 14 Blood Pressure 123/66 122/78 116/75 Pulse Oximetry 100 100 100 03/22/18 04:35 03/22/18 05:00 03/22/18 05:30 Temperature Pulse Rate 104 H 96 H Respiratory Rate 16 17 16 Blood Pressure 113/75 111/67 Pulse Oximetry 100 100 100 03/22/18 06:00 03/22/18 06:03 03/22/18 06:30 Temperature Pulse Rate 112 H 112 H 97 H Respiratory Rate 23 16 15 Blood Pressure 136/74 114/65 Pulse Oximetry 100 100 100 03/22/18 07:00 03/22/18 07:30 03/22/18 08:00 Temperature 98.4 F Pulse Rate 94 H 94 H 96 H Respiratory Rate 16 0 L 9 L Blood Pressure 111/59 L 99/58 L 93/65 L Pulse Oximetry 100 100 100 03/22/18 08:30 03/22/18 09:00 03/22/18 09:30 Temperature Pulse Rate 92 H 90 84 Respiratory Rate 16 0 L 15 Blood Pressure 88/60 L 94/55 L 93/50 L Pulse Oximetry 100 100 100 03/22/18 10:00 03/22/18 10:31 03/22/18 11:00 Temperature Pulse Rate 84 88 94 H Respiratory Rate 15 2 L 16 Blood Pressure 88/57 L 100/53 L 96/63 L Pulse Oximetry 100 100 100 Intake & Output 03/21/18 03/22/18 03/22/18 18:59 06:59 18:59 Intake Total 1940 / 1940 995 / 995 52 / 52 Output Total 850 / 850 1325 / 1325 Balance 1090 / 1090 -330 / -330 52 / 52 Weight 73.2 kg Intake: IV 1502 / 1502 354 / 354 52 / 52 Precedex Inj 200 MCG In NS Inj 102 / 102 104 / 104 52 / 52 48 ML @ 0.2 MCG/KG/HR 3.53 mls/ hr IV.CONT TITRATE PRN Rx#: [id number] D5W/Normal Saline Inj 1,000 ML 1000 / 1000 @ 50 mls/hr IV.CONT .Q20H KARINA Rx#:[id number] Levaquin 750 mg Premix Inj 150 150 / 150 ML @ 100 mls/hr IV.SIG Q24H KARINA Rx#:[id number] Vancomycin Inj 1,000 MG In NS 250 / 250 250 / 250 Inj 250 ML @ 250 mls/hr IV.SIG Q12H KARINA Rx#:[id number] Oral 0 / 0 Tube Feeding 288 / 288 241 / 241 Tube Irrigant 0 / 0 Water Bolus Amount 150 / 150 Intake (Blood Product) Amt 400 / 400 Rbc As-3 Leukoreduced Unit 400 / 400 [id number] Output: Urine 850 / 850 650 / 650 Stool 0 / 0 Urine/Stool Mix 0 / 0 Urine Amount (Catheter) 675 / 675 Straight 675 / 675 Other: Date of Last Bowel Movement 03/21/18 03/22/18 03/22/18 # Bowel Movements 0 # Incontinent Bowel Movements 2 2 # Emeses 0 # Oral Regurgitations 0 Physical Exam: CONSTITUTIONAL/GENERAL: Thin, frail-appearing, weak appearing, awake a lethargic female . No obvious distress. Generalized edema. TUBES/LINES/DRAINS: Right subclavian line; peripheral IVs; orotracheal tube; orogastric tube; soft wrist restraints; Coleman catheter SKIN: No jaundice, rashes, or lesions. Generalized edema in the extremities. No wounds seen anteriorly. Skin temperature appropriate. Not diaphoretic. NECK: Trachea midline. No palpable thyroid enlargement or nodularity. No cervical collar in place at this time. CARDIOVASCULAR: Regular rate and rhythm without murmur. No JVD. Peripheral pulses weak.+ Significant generalized edema. RESPIRATORY/CHEST: Symmetric, unlabored respirations. Breath sounds equal bilaterally. Lungs are clear, diminished. GASTROINTESTINAL: Abdomen soft, non-tender, nondistended. No hepato-splenomegaly , or palpable masses. No guarding. Bowel sounds present. GENITOURINARY: Without palpable bladder distension. Coleman catheter in place. MUSCULOSKELETAL: Extremities without clubbing, cyanosis. Significant pitting edema in all extremities. No mottling. NEUROLOGICAL: Eyes are open. Awake though somewhat flat/lethargic. Follows very simple commands to move fingers, toes. Very weak. Unable to follow more complex commands such as show me 1 or 2 your thumb not clear if this is due to weakness or inability to process. Inconsistently answers yes/no questions. PSYCHIATRIC: No obvious anxiety/depression. no apparent hallucinations or other psychotic thought process. . Diagnostic Tests Laboratory: Laboratory Results - last 72 hr 03/20/18 03/20/18 03/20/18 04:00 04:00 04:00 WBC 6.2 RBC 2.78 L Hgb 8.6 L Hct 25.0 L MCV 90.1 MCH 30.8 MCHC 34.2 RDW 16.5 Plt Count 97 L MPV 8.3 Prelim Diff (Auto) Slide review pending Neut % (Auto) 79.0 H Lymph % (Auto) 13.3 [place] % (Auto) 6.8 Eos % (Auto) 0.7 Baso % (Auto) 0.2 Neut # (Auto) 4.9 Lymph # (Auto) 0.8 L [place] # (Auto) 0.4 Eos # (Auto) 0.0 Baso # (Auto) 0.0 WBC Differential Manual diff final Seg Neuts % (Manual) 72 H Band Neuts % (Manual) 15 H Lymphocytes % (Manual) 6 L Monocytes % (Manual) 7 Eosinophils % (Manual) Abs Neuts (Manual) 5.4 Differential Comment . Dohle Bodies Present H Platelet Estimate Low L Platelet Morphology Normal RBC Morphology Normal Sodium 145 Potassium 3.2 L Chloride 113 H Carbon Dioxide 23.8 Anion Gap 8 BUN 8 Creatinine Less than 0.15 L Estimated GFR Greater than 89 POC Glucose Random Glucose 118 H Calcium 6.9 L* Prot Corrected Calcium 8.3 L Phosphorus 2.9 Magnesium 1.7 Total Bilirubin 0.2 AST 41 H ALT 18 Alkaline Phosphatase 237 H Total Protein 4.5 L Albumin 0.9 L Vancomycin Trough 3.1 L Blood Type Antibody Screen MTS Gel Crossmatch Bld Prod Order Comment 03/20/18 03/20/18 03/21/18 15:34 23:17 04:22 WBC RBC Hgb Hct MCV MCH MCHC RDW Plt Count MPV Prelim Diff (Auto) Neut % (Auto) Lymph % (Auto) [place] % (Auto) Eos % (Auto) Baso % (Auto) Neut # (Auto) Lymph # (Auto) [place] # (Auto) Eos # (Auto) Baso # (Auto) WBC Differential Seg Neuts % (Manual) Band Neuts % (Manual) Lymphocytes % (Manual) Monocytes % (Manual) Eosinophils % (Manual) Abs Neuts (Manual) Differential Comment Dohle Bodies Platelet Estimate Platelet Morphology RBC Morphology Sodium Potassium Chloride Carbon Dioxide Anion Gap BUN Creatinine Estimated GFR POC Glucose 104 113 H 138 H Random Glucose Calcium Prot Corrected Calcium Phosphorus Magnesium Total Bilirubin AST ALT Alkaline Phosphatase Total Protein Albumin Vancomycin Trough Blood Type Antibody Screen MTS Gel Crossmatch Bld Prod Order Comment 03/21/18 03/21/18 03/21/18 04:30 04:30 17:35 WBC 5.4 RBC 2.67 L Hgb 8.0 L Hct 24.0 L MCV 89.7 MCH 29.9 MCHC 33.3 RDW 17.2 Plt Count 99 L MPV 8.8 Prelim Diff (Auto) Slide review pending Neut % (Auto) 70.6 H Lymph % (Auto) 21.0 [place] % (Auto) 6.8 Eos % (Auto) 1.5 Baso % (Auto) 0.1 Neut # (Auto) 3.8 Lymph # (Auto) 1.1 [place] # (Auto) 0.4 Eos # (Auto) 0.1 Baso # (Auto) 0.0 WBC Differential Manual diff final Seg Neuts % (Manual) 46 Band Neuts % (Manual) 38 H Lymphocytes % (Manual) 7 L Monocytes % (Manual) 8 Eosinophils % (Manual) 1 Abs Neuts (Manual) 4.5 Differential Comment . Dohle Bodies Platelet Estimate Low L Platelet Morphology Normal RBC Morphology Sodium 145 Potassium 3.1 L Chloride 113 H Carbon Dioxide 22.7 Anion Gap 9 BUN 10 Creatinine Less than 0.15 L Estimated GFR Greater than 89 POC Glucose Random Glucose 123 H Calcium 7.0 L* Prot Corrected Calcium 8.5 Phosphorus 2.1 L Magnesium 1.7 Total Bilirubin 0.3 AST 30 ALT 17 Alkaline Phosphatase 312 H Total Protein 4.3 L Albumin 0.8 L Vancomycin Trough Blood Type O Negative Antibody Screen Negative MTS Gel Crossmatch See Detail Bld Prod Order Comment 03/21/18 03/21/18 03/22/18 18:18 23:31 03:20 WBC RBC Hgb 10.7 L D Hct 31.6 L MCV MCH MCHC RDW Plt Count MPV Prelim Diff (Auto) Neut % (Auto) Lymph % (Auto) [place] % (Auto) Eos % (Auto) Baso % (Auto) Neut # (Auto) Lymph # (Auto) [place] # (Auto) Eos # (Auto) Baso # (Auto) WBC Differential Seg Neuts % (Manual) Band Neuts % (Manual) Lymphocytes % (Manual) Monocytes % (Manual) Eosinophils % (Manual) Abs Neuts (Manual) Differential Comment Dohle Bodies Platelet Estimate Platelet Morphology RBC Morphology Sodium Potassium 3.9 D Chloride Carbon Dioxide Anion Gap BUN Creatinine Estimated GFR POC Glucose 133 H Random Glucose Calcium Prot Corrected Calcium Phosphorus 3.0 Magnesium Total Bilirubin AST ALT Alkaline Phosphatase Total Protein Albumin Vancomycin Trough Blood Type Antibody Screen MTS Gel Crossmatch Bld Prod Order Comment 03/22/18 03/22/18 05:19 05:45 WBC RBC Hgb Hct MCV MCH MCHC RDW Plt Count MPV Prelim Diff (Auto) Neut % (Auto) Lymph % (Auto) [place] % (Auto) Eos % (Auto) Baso % (Auto) Neut # (Auto) Lymph # (Auto) [place] # (Auto) Eos # (Auto) Baso # (Auto) WBC Differential Seg Neuts % (Manual) Band Neuts % (Manual) Lymphocytes % (Manual) Monocytes % (Manual) Eosinophils % (Manual) Abs Neuts (Manual) Differential Comment Dohle Bodies Platelet Estimate Platelet Morphology RBC Morphology Sodium Potassium Chloride Carbon Dioxide Anion Gap BUN Creatinine Estimated GFR POC Glucose 109 Random Glucose Calcium Prot Corrected Calcium Phosphorus Magnesium Total Bilirubin AST ALT Alkaline Phosphatase Total Protein Albumin Vancomycin Trough 11.2 H Blood Type Antibody Screen MTS Gel Crossmatch Bld Prod Order Comment Result Diagrams: 04/04/18 04:05 04/04/18 04:05 Microbiology: Microbiology 03/16/18 19:40 Aerobic Blood Culture - Final Blood - Line No growth in 5 days Anaerobic Blood Culture - Final No growth in 5 days 03/16/18 19:45 Aerobic Blood Culture - Final Blood - Line No growth in 5 days Anaerobic Blood Culture - Final No growth in 5 days Imaging: Impressions Abdomen X-Ray 03/21/18 00:00 CONCLUSION: Nasogastric or orogastric tube tip in distal stomach. Procedures: Intubation and mechanical ventilation Assessment and Plan - Disease Oriented Problem List (3) S/P laminectomy with spinal fusion Comment: for removal of benign tumor at [facility] 02/03/2018. 90% of tumor was removed. Pertinent Non-Medical Issues: Psychosocial: Originally from [place]. Has lived in [place] since age 15 - - initially in [facility], and more recently in [place]. Patient is . Has 2 daughters --Lida lives in [place]; Sylvie lives in [place]. Spiritual: Patient alternates between Catholicism and yazidi is him. Appreciate skirt clipper visits. Legal: No advance directives. Ethical issues impacting care: Patient has periods of being awake and alert on the ventilator when she appears fully capacitated to make her own healthcare decisions. . Important Contacts: Teresa Willett (daughter) [phone] Dileep Willett (son in law) [phone] Asher (spouse) Lida (daughter) . Prognosis: Prognostication is challenging in this patient. She apparently began having significant weight loss and progressive generalized weakness dating back to April 2017. She was diagnosed with thyroid problems. There was also blood loss and thrombocytopenia. Patient also has lupus. She did seem to improve initially after her neurosurgery at [facility]. However she is quite debilitated. She seems to have had a new hemorrhage since her surgery. She developed septic shock after just a few days in rehab. It is unclear at this point what her neurologic recovery would look like. It is also unclear what is caused her thrombocytopenia and blood loss. Family reports that doctors at [facility] had wanted both a kidney biopsy and a bone marrow biopsy. The patient certainly has a long, hard, road ahead of her if she chooses aggressive care and due to her level of debility is likely to have complications along the way. . Code Status: Full Code Plan: == Code Status: Patient will remain full code until there are further conversations with the patient regarding goals. If there is a decision not to go forward with tracheostomy and PEG tube placement will likely change CODE STATUS to DNR. == Decision Making: When patient is awake and alert she seems to understand her medical condition and appears capacitated to make her own medical decisions. Should she become incapacitated, proxy decision making would fall to her spouse. At this time the spouse is consulting with the 2 daughters and son-in-law to help make medical decisions. == Goals of medical treatment: Per initial palliative meeting 7/patient was telling family early in the day that she had had enough and did not want to go forward with tracheostomy and PEG tube placement. Later in the day she told her she would agree to these procedures. Family is hoping that she awakens again this evening or tomorrow morning and they can speak to her once again about goals. Plan on making final decision regarding trach/PEG by AM on 03/22 follow-up patient sedation held, more alert and interactive however still does not appear clear and able to understand and process well enough to make her own decisions. Family is to discuss further today. == Symptoms * Pain: Pain has been in the neck and back. Long history of arthritis pain impacting multiple joints from both lupus and rheumatoid arthritis. Patient also has other probable sources of discomfort including prolonged bedbound status; orotracheal intubation; orogastric intubation; vascular access line; restraints; urinary catheter.. She has not required opiate analgesics since 02/20. She does receive acetaminophen 650 mg as needed for pain levels of 1 through 5. * Dyspnea: Dyspnea appears adequately controlled by mechanical ventilation. No history of underlying respiratory problems. Possible pneumonia. May have some diaphragmatic weakness from spinal injury. == Infection: Continues to have low-grade fevers and a significant bandemia. Source is unclear. Neurosurgery and radiology has suggested that current MRI findings may be consistent with infection. 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 Source of this is unclear. Hematology and oncology have recommended a bone marrow biopsy. If family decides to continue with aggressive care it may be wills to obtain the bone marrow biopsy which may impact prognosis and decision making. == Lupus: Family reports that the patient had been started on Cellcept for her Lupus while at [facility]. She seemed to respond well to this medication. Also, seemed to be helped by steroids at [facility]. May want to consider. == Palliative care will continue to follow to assist with symptom management and to further clarify goals of medical treatment as the clinical course evolves. Time Spent Total Floor Time (mins): 25 (Chart review, discussion with nursing, discussion with family, exam) Attestation Collaborating MD Comments: Chart reviewed. Case discussed with palliative care nurse practitioner. Above WORK TICKET DISTRIBUTOR note reviewed and I concur. .
[2018-03-23] MEDS: Oral Hygiene Kit OROPHARYNG SCH ×5 (02:49→23:47)
[2018-03-23] MEDS: Hypromellose 0.3% Opth Gel 10 GM Bottle EACH EYE SCH ×3 (02:49→20:52)
[2018-03-23] MEDS: Insulin NovoLIN Regular Correctional Sugar Inj SQ SCH ×5 (02:50→23:47)
[2018-03-23] MEDS: Dextrose 5%/NaCl 0.9% Inj 1,000 ML IV.CONT SCH (03:46)
[2018-03-23 04:11] LABS: Baso % (Auto) 0.3 % (0.0-2.0); Eos % (Auto) 0.3 % (0.0-4.0); Hematocrit 28.5 % (35.0-46.0); Hemoglobin 9.8 gm/dL (11.6-15.3); Lymph # (Auto) 1.5 th/mm3 (1.0-4.8); Lymph % (Auto) 19.4 % (9.0-44.0); Mean Corpuscular HGB Conc 34.4 % (32.0-36.0); Mean Corpuscular Hemoglobin 30.9 pg (27.0-34.0); Mean Corpuscular Volume 89.9 fL (80.0-100.0); Mean Platelet Volume 8.1 fL (7.0-11.0); Mono # (Auto) 0.6 th/mm3 (0.0-0.9); Mono % (Auto) 8.4 % (0.0-8.0); Neut # (Auto) 5.5 th/mm3 (1.8-7.7); Neut % (Auto) 71.6 % (16.0-70.0); Platelet Count 137 th/mm3 (150-450); Red Blood Count 3.17 mil/mm3 (4.00-5.30); Red Cell Distribution Width 16.3 % (11.6-17.2); White Blood Count 7.7 th/mm3 (4.0-11.0)
--- NOTE | 2018-03-23 04:43 | XR ---
EXAM DATE: 03/23/2018 4:22 AM EDT AGE/SEX: 62 years / Female INDICATIONS: . Short of breath. CLINICAL DATA: This is the patient's subsequent encounter. Patient reports that signs and symptoms h ave been present for 2 weeks and indicates a pain score of 0/10. MEDICAL/SURGICAL HISTORY: Hypertension. Fusion, cervical. COMPARISON: [facility], CHEST 1V SINGLE AP, 03/20/2018. . FINDINGS: Endotracheal tube tip at the raz. NG enters stomach. Right central line in superior vena cava exte nding into right atrium. Bilateral airspace disease similar to March 20. Small left and right effusion s. CONCLUSION: Endotracheal tube tip at raz. NG enters stomach. Right central line in superior vena cava. Bilateral airspace disease and pleural effusions similar to March 20. Electronically signed by: Sj Do MD 03/23/2018 4:42 AM EDT
[2018-03-23 04:53] LABS: Alanine Aminotransferase 21 U/L (10-53); Albumin 0.9 g/dL (3.4-5.0); Alkaline Phosphatase 299 U/L (45-117); Anion Gap 7 meq/L (5-15); Aspartate Aminotransferase 46 U/L (15-37); Blood Urea Nitrogen 10 mg/dL (7-18); Calcium 6.8 mg/dL (8.5-10.1); Carbon Dioxide 25.6 meq/L (21.0-32.0); Chloride 113 meq/L (98-107); Glomerular Filtration Rate Greater Than 89 mL/min (>89); Glucose,Random 96 mg/dL (74-106); Magnesium 1.5 mg/dL (1.5-2.5); Phosphorus 2.8 mg/dL (2.5-4.9); Sodium 146 meq/L (136-145); Total Protein 4.8 g/dL (6.4-8.2)
[2018-03-23 04:56] LABS: Potassium 2.9 meq/L (3.5-5.1)
[2018-03-23] MEDS: Vancomycin Inj 1,000 MG in Sodium Chlor 0.9% Inj 250 ML IV.SIG SCH ×2 (05:11→18:26)
[2018-03-23] MEDS: Levothyroxine 50 MCG Tablet PO SCH (05:12)
[2018-03-23] MEDS: Potassium Chlor 40 mEq Premix 40 MEQ/100 ML PIGGYBACK IV.SIG PRN ×3 (05:20→21:54)
[2018-03-23] MEDS: Magnesium Sulfate Inj 2 GM in Sodium Chlor 0.9% Inj 96 ML IV.SIG PRN (05:21)
[2018-03-23] MEDS: Metoprolol Tartrate 25 MG Tablet PO SCH ×2 (08:58→20:53)
[2018-03-23] MEDS: Gabapentin 300 MG Capsule PO SCH ×3 (08:59→18:49)
[2018-03-23] MEDS: Chlorhexidine 0.12% Oral Kit 15 ML UDC OROPHARYNG SCH ×2 (14:35→20:52)
[2018-03-23] MEDS: Acetaminophen 325 MG Tablet PO PRN (15:51)
--- NOTE | 2018-03-23 16:05 | P.PNCC ---
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 she was sent to [facility] for procedural management of these. She was then transferred to [facility] on 02/28. Please see the dictated hospitalist consult note on 02/28 on admission to [facility] for a detailed record of the hospital course while at [facility]. Today, she was found to be very tachycardic in the 160s and hypotensive with sbp in the 70s. She was emergently transferred to the ICU after rapid response was called for evaluation and management of her hypotension. Of note, she did not have iv access. I met her on arrival to the ICU. I placed 2 18g piv. 12-lead EKG confirms sinus tachycardia. I due to the fast rate, I gave 6mg adenosine to slow it down diagnostically, and it slowed down temporarily to a HR in the 70s, confirming sinus rhythm. I performed bedside critical care echocardiography which demonstrates grossly preserve biventricular function. in particular, RV is decompressed and well-functioning. IVC is completely collapsable. no pericardial effusion. I gave her 3L NS bolus ivf which improved her SBP to 110s and decreased her HR to 110s. She is afebrile. stat CBC shows anemia (history of recent femoral artery pseudoaneurysm), CMP demonstrates elevated AST and Alk phos, elevated lactate at 3.7. Cr elevated above baseline. Patient denies any complaints to me. she is mostly gibraltarian speaking, but communicates in basic Tajik. specifically denies chest pain, shortness of breath, fever/chills, nausea, vomiting, abdominal pain, constipation, diarrhea. I discussed with her family, she has been eating and drinking well even up to today. ROS otherwise negative. 03/02 Patient is awake lying in bed in TRAV. On room air oxygen. T:103.2 this morning She was hypotensive overnight initially placed on Neosyn now off pressor with BP 147/67 with MAP 96. 03/03 No events overnight. Seems more awake and alert this morning. T: 100.2 at midnight. BP and HR better ( 119/58 with MAP 83mmHg). On no pressors. BC from 03/01: E.coli ESBL 6/30: clinically improving. slightly tachycardic. on appropriate therapy for her ESBL e. coli. denies complaints. hemodynamically stable. on room air. 03/05: Patient developed worsening respiratory distress yesterday and required endotracheal intubation and was placed on mechanical ventilation. Hypotension overnight for which patient was started on phenylephrine. Developed A. fib with RVR and was started on amiodarone gtt. 03/06 Patient remains sedated and intubated. Tmax 101.6, On Amio drip. 03/07 Patient remains intubated off sedation. s/p transfusion 2u PRBC yesterday. Tolerating tube feeds. Afebrile. Off Amio drip. 03/08 Patient remains intubated. T:100.9 last night. 03/09 No events overnight. Tolerated CPAP for approx 4 hrs yesterday. Off sedation. Afebrile. 03/10 No events overnight T:100.1 at 4am, Awake, patient was on CPAP for short time yesterday and placed back on PRVC mode for low TV and tachycardia. 03/11 No events overnight. Tolerated CPAP x 4hrs yesterday. T:100.6 yesterday. On no sedation. 03/12 Patient was extubated yesterday reintubated last night for resp distress and AMS. Afebrile. On Diprivan infusion for sedation. 03/13: Remains intubated critical, remains encephalopathy unresponsive off sedation. Afebrile EEG showed significant encephalopathy no seizures. Right subclavian central line placed, remains on Luis-Synephrine to keep map above 65 03/14: Remains encephalopathy again unresponsive. Eyes are open but no tracking did not follow commands. Remains leukopenic. Weaned off Luis-Synephrine. Not tolerating CPAP due to low tidal volume 03/15: Continues to fail CPAP due to low tidal volume. IV Levaquin added yesterday by ID for stenotrophomonas in the sputum. Remains encephalopathic did not follow commands but eyes are spontaneously open. I have requested neurology consult today 03/16: T-max 100.1. Currently 99. EEG has been performed. Does not follow commands. Tube feeds at 30 cc an hour. Positive BM. 03/17 Patient remains intubated on Precedex drip but awake. 03/18 T-current 100.7. Tolerating tube feeds at goal. Arousable the ventilator and follows command. Left side is chronically weaker. Discussed with Dr. Gutierrez /neurology. Reviewed MRI brain. Recommended evaluation by neurosurgery for abnormal MRI C-spine. Patient's CT surgeon at [facility] is Dr. Ku 03/19: T-max 100.7. Currently 99. Tachycardic. Tolerated CPAP trial. On the ventilator currently. Positive BM yesterday. 03/20 Patient was on Diprivan and Precedex drip overnight now off sedation. Afebrile. 03/21: no improvements. has been intubated for 17 days, and failed extubation quickly 03/12. needs trach and peg for further progress. 03/22: Afebrile. Intubation day #18. Patient currently contemplating trach and PEG options. Currently off dexmedetomidine drip. Subjective 03/23: Afebrile. Plan for PEG tube today. Awake and alert and interactive on the ventilator. Tube feeds are currently off. Objective Vital Signs / I&O: Vital Signs 03/22/18 16:30 03/22/18 17:00 03/22/18 17:17 Temperature Pulse Rate 124 H 125 H 122 H Respiratory Rate 8 L 18 16 Blood Pressure 126/70 119/73 Pulse Oximetry 100 100 03/22/18 17:30 03/22/18 18:00 03/22/18 20:00 Temperature 99.7 F H Pulse Rate 121 H 123 H 111 H Respiratory Rate 20 16 Blood Pressure 105/66 118/62 Pulse Oximetry 100 100 03/22/18 21:09 03/22/18 22:00 03/22/18 22:21 Temperature Pulse Rate 97 H 96 H Respiratory Rate 16 16 Blood Pressure Pulse Oximetry 100 03/23/18 00:00 03/23/18 00:07 03/23/18 02:00 Temperature 98.7 F Pulse Rate 104 H 104 H 108 H Respiratory Rate 16 16 Blood Pressure 128/78 Pulse Oximetry 100 100 03/23/18 03:31 03/23/18 04:00 03/23/18 06:00 Temperature 98.1 F Pulse Rate 107 H 108 H 99 H Respiratory Rate 16 16 Blood Pressure 133/82 Pulse Oximetry 100 100 03/23/18 07:55 03/23/18 08:00 03/23/18 10:00 Temperature 98.4 F Pulse Rate 107 H 107 H 99 H Respiratory Rate 20 16 Blood Pressure 134/72 Pulse Oximetry 100 99 03/23/18 11:27 03/23/18 12:00 03/23/18 14:00 Temperature 98.2 F Pulse Rate 110 H 113 H 111 H Respiratory Rate 25 H 13 Blood Pressure 125/71 Pulse Oximetry 99 Intake & Output 03/22/18 03/23/18 03/23/18 18:59 06:59 18:59 Intake Total 1302 / 1302 905 / 905 100 / 100 Output Total 700 / 700 1125 / 1125 Balance 602 / 602 -220 / -220 100 / 100 Weight 73 kg Intake: IV 1302 / 1302 750 / 750 100 / 100 Precedex Inj 200 MCG In NS Inj 52 / 52 48 ML @ 0.2 MCG/KG/HR 3.53 mls/ hr IV.CONT TITRATE PRN Rx#: [id number] D5W/Normal Saline Inj 1,000 ML 1000 / 1000 @ 50 mls/hr IV.CONT .Q20H KARINA Rx#:[id number] Ofirmev Inj 1,000 mg In 100 ml 100 / 100 @ 400 mls/hr IV.SIG ONCE ONE Rx #:[id number] Levaquin 750 mg Premix Inj 150 150 / 150 ML @ 100 mls/hr IV.SIG Q24H KARINA Rx#:[id number] KCl 40 mEq Premix Inj 40 meq In 100 / 100 100 ml @ 25 mls/hr IV.SIG UNSCH PRN Rx#:[id number] Vancomycin Inj 1,000 MG In NS 750 / 750 Inj 250 ML @ 250 mls/hr IV.SIG Q12H [facility] Rx#:[id number] Tube Feeding 155 / 155 Output: Urine Amount (Catheter) 700 / 700 1125 / 1125 Straight 700 / 700 1125 / 1125 Other: Date of Last Bowel Movement 03/22/18 03/23/18 03/23/18 # Bowel Movements 3 # Incontinent Bowel Movements 1 Result Diagrams: 03/23/18 03:30 03/23/18 03:30 Other Results: Microbiology 03/16/18 19:40 Blood - Line Aerobic Blood Culture - Final No growth in 5 days 03/16/18 19:40 Blood - Line Anaerobic Blood Culture - Final No growth in 5 days 03/16/18 19:45 Blood - Line Aerobic Blood Culture - Final No growth in 5 days 03/16/18 19:45 Blood - Line Anaerobic Blood Culture - Final No growth in 5 days 03/16/18 15:28 Catheterized Urine Urine Culture - Final No growth in 48 hours 03/15/18 04:50 Sputum - Endotracheal Gram Stain - Final 03/15/18 04:50 Sputum - Endotracheal Sputum Culture - Final Stenotrophomonas maltophilia 03/12/18 00:46 Blood - Peripheral Aerobic Blood Culture - Final No growth in 5 days 03/12/18 00:46 Blood - Peripheral Anaerobic Blood Culture - Final No growth in 5 days 03/12/18 00:40 Blood - Peripheral Aerobic Blood Culture - Final No growth in 5 days 03/12/18 00:40 Blood - Peripheral Anaerobic Blood Culture - Final No growth in 5 days 03/15/18 23:15 Stool Stool Occult Blood (ABEBE) - Final Hemoccult negative 03/11/18 22:30 Sputum - Endotracheal Gram Stain - Final 03/11/18 22:30 Sputum - Endotracheal Sputum Culture - Final Stenotrophomonas maltophilia 03/09/18 19:21 Blood - Peripheral Aerobic Blood Culture - Final No growth in 5 days 03/09/18 19:21 Blood - Peripheral Anaerobic Blood Culture - Final No growth in 5 days 03/09/18 19:28 Blood - Peripheral Aerobic Blood Culture - Final No growth in 5 days 03/09/18 19:28 Blood - Peripheral Anaerobic Blood Culture - Final No growth in 5 days 03/08/18 11:00 Blood - Peripheral Aerobic Blood Culture - Final No growth in 5 days 03/08/18 11:00 Blood - Peripheral Anaerobic Blood Culture - Final No growth in 5 days 03/08/18 11:09 Blood - Peripheral Aerobic Blood Culture - Final No growth in 5 days 03/08/18 11:09 Blood - Peripheral Anaerobic Blood Culture - Final No growth in 5 days 03/09/18 16:45 Sputum - Endotracheal Gram Stain - Final 03/09/18 16:45 Sputum - Endotracheal Sputum Culture - Final Heavy growth normal respiratory ramesh 03/06/18 05:12 Blood - Peripheral Aerobic Blood Culture - Final Staphylococcus coag negative 03/06/18 05:12 Blood - Peripheral Anaerobic Blood Culture - Final Staphylococcus epidermidis 03/05/18 15:33 Blood - Peripheral Aerobic Blood Culture - Final No growth in 5 days 03/05/18 15:33 Blood - Peripheral Anaerobic Blood Culture - Final Escherichia coli ESBL positive 03/08/18 17:55 Catheterized Urine Urine Culture - Final No growth in 48 hours 03/07/18 16:00 Sputum - Endotracheal Gram Stain - Final 03/07/18 16:00 Sputum - Endotracheal Sputum Culture - Final Heavy growth normal respiratory ramesh 03/05/18 12:55 Blood - Peripheral Aerobic Blood Culture - Final Escherichia coli ESBL positive 03/05/18 12:55 Blood - Peripheral Anaerobic Blood Culture - Final Escherichia coli ESBL positive Imaging: Chest X-Ray 03/07/18 00:00 CONCLUSION: 1. Persistent left lower lobe consolidation and pleural effusion. 2. Interval resolution of diffuse infiltrates in the right lung and reduction in the infiltrates in the left upper lung. Chest X-Ray 03/09/18 08:51 CONCLUSION: 1. Interval removal of left subclavian central line. 2. Stable small left pleural effusion and associated airspace disease in the left lower lobe. 3. Continued improving aeration of the left upper lung zone. 4. Stable mild airspace disease in the right lower lung zone. Chest X-Ray 03/11/18 21:53 CONCLUSION: Basilar airspace disease and pleural effusions similar to March 09. Endotracheal tube tip just above raz. Head CT 03/12/18 06:59 CONCLUSION: 1. No acute intracranial abnormality. 2. Minimal fluid in the mastoid air cells. Chest X-Ray 03/12/18 21:40 CONCLUSION: Placement of a right central line with tip in right atrium. No pneumothorax. Chest X-Ray 03/14/18 06:00 CONCLUSION: 1. No significant interval change. 2. Stable tubes and lines. 3. Stable small bilateral pleural effusions and associated lower lung zone airspace disease. Chest X-Ray 03/15/18 06:00 CONCLUSION: 1. No significant interval change. 2. Stable tubes and lines. 3. Stable bilateral [id number] pleural effusions with associated lower lobe airspace disease. Cervical Spine MRI 03/16/18 00:00 CONCLUSION: 1. Persistent abnormal signal in the cord extending from C4 down to T1. Much of this likely related to edema. The edema appears to extend over a smaller area on the current exam. There is a linear area of increased signal seen on the T1 and T2-weighted images at the left-sided cord at the C7-T1 level which may represent an area of focal hemorrhage within the cord. 2. Status post laminectomy with posterior fusion and hardware placed at the C4- T1 levels. 3. Prevertebral soft tissue swelling. 4. No focal fluid collection to suggest an abscess is seen. Head MRI 03/16/18 00:00 CONCLUSION: 1. There is a new area of nodular enhancement, abnormal FLAIR signal, and mild restricted diffusion at the baeza matter white matter junction in the left occipital lobe. 3 additional small areas of nodular enhancement measuring approximately 3 mm are also identified along the baeza matter surface in the left parietal high convexity. Etiology is nonspecific. Metastatic disease is one consideration but given the history infection is another consideration. Suggest attention to these areas at follow-up imaging. 2. Increased fluid in the mastoid air cells bilaterally. Chest X-Ray 03/17/18 06:00 CONCLUSION: Better aeration of the lungs with bibasilar densities and small pleural effusions. Chest X-Ray 03/19/18 06:00 CONCLUSION: Endotracheal tube tip is engaged in the left mainstem bronchus. Retraction by couple of centimeters recommended. Otherwise stable chest Chest X-Ray 03/20/18 05:51 CONCLUSION: Endotracheal tube tip remains in left mainstem bronchus. This should be withdrawn about 3 cm. Bilateral mostly basilar airspace disease and small pleural effusions. Chest X-Ray 03/20/18 06:00 CONCLUSION: Endotracheal tube tip in left mainstem bronchus. Bilateral mostly basilar airspace disease and effusions similar to March 19. Abdomen X-Ray 03/21/18 00:00 CONCLUSION: Nasogastric or orogastric tube tip in distal stomach. Chest X-Ray 03/23/18 06:00 CONCLUSION: Endotracheal tube tip at raz. NG enters stomach. Right central line in superior vena cava. Bilateral airspace disease and pleural effusions similar to March 20. Objective Remarks: GENERAL: Patient is 62 yo female patient intubated and off sedation in no acute distress SKIN: Warm and dry. No rash. Sacral DTI HEAD: Normocephalic. EYES: No scleral icterus. No injection or drainage. NECK: Supple, trachea midline. No JVD or lymphadenopathy. CARDIOVASCULAR: RRR. S1, S2. No S4. Without murmur RESPIRATORY: Breath sounds equal bilaterally. No accessory muscle use. Diminished in the bases bilaterally. GASTROINTESTINAL: Abdomen soft, non-tender, nondistended. Hypoactive bowel sounds appreciated. MUSCULOSKELETAL: Trace bilateral lower extremity edema. NEURO: Arousable and follows commands with bilateral upper extremities. Nods head appropriately questions. She is Palauan-speaking and can understand some Tajik phrases. Assessment and Plan - Assessment and Plan Plan: Neuro/Psych: History of C6 vertebral aneurysm and underwent a C4 through T1 posterior fusion resection of the C6 mass which was negative for malignancy with 90% of mass removed, just showing inflammation, and a C4 through 7 laminectomy on 02/03/2018. Severe metabolic encephalopathy Recent aneurysmal subarachnoid hemorrhage treated at [facility] in January 2018 History of left occipital subarachnoid hemorrhage February 15, 2018 Cord edema possible hemorrhage within the cord level C7 through T1 Off Precedex drip , monitor neuro status Repeat CT brain showed no acute abnormalities. EEG significant encephalopathy Seen by Dr. Newberry from [facility] [place]- No further neurosurgical intervention anticipated at this point. MRI brain: previously noted subarachnoid hemorrhage overlying the occipital lobes has resolved. Tiny trace of residual hemorrhage in the posterior lateral ventricles. Stable chronic white matter changes. No new or acute intracranial process. Neurology consult requested Dr. Arellano/follow-up has followed EEG: Mod. encephalopathy MRI brain 03/16 : There is a new area of nodular enhancement, abnormal FLAIR signal, and mild restricted diffusion at the baeza matter white matter junction in the left occipital lobe. 3 additional small areas of nodular enhancement measuring approximately 3 mm are also identified along the baeza matter surface in the left parietal high convexity. Etiology is nonspecific. MRI cervical spine 03/16: Persistent abnormal signal in the cord extending from C4 down to T1. Much of this likely related to edema. The edema appears to extend over a smaller area on the current exam. There is a linear area of increased signal seen on the T1 and T2-weighted images at the left-sided cord at the C7-T1 level which may represent an area of focal hemorrhage within the cord. Status post laminectomy with posterior fusion and hardware placed at the C4-T1 levels. Prevertebral soft tissue swelling. No focal fluid collection to suggest an abscess. Currently on gabapentin 600 mg 3 times daily/home medication on hold for neuropathy pain Currently on cyclobenzaprine 5 mg every 8 hours. Hold secondary to AMS Acetaminophen 650 every 6 hours as needed fever C-collar is been removed Her neurosurgeon is Dr. Ku [id number] [id number] Pulm: Acute hypoxemic respiratory failure HCAP Extubated and reintubated on 03/11, failing CPAP trials due to low tidal volumes. PRVC 16/500/09/09/34 Ventilator bundle Albuterol/ipratropium aerosols every 4 hours with albuterol aerosols every 2 hours. Dyspnea Daily spontaneous breathing trials CT pulmonary angiogram chest: No PE, minimal consolidative changes left base has been > 18 days on mechanical ventilation. remains very weak with most likely myopathy of critical illness, poor tidal volumes. quickly failed trial of extubation 03/11. will require tracheostomy for further care. have consulted general surgery for trach. CV: A. fib/sinus tachycardia Septic shock- resolved. Hyperlipidemia Place on Lopressor 25mg Q12 Monitor HR and BP keep MAP>65mmHg. on IV metoprolol 2.5 mg every 6 hours PRN tachycardia Pravachol 20mg daily for dyslipidemia - Elevated troponin, type II demand ischemia NSTEMI - Echo 03/06 EF 50-55% - Will not anticoagulate at this time given risk/benefit with recent head bleed Cortisol level: 41 Cards has followed Renal/FEN/: Urinary retention Hypernatremia Hypopotassemia Hypomagnesia Monitor renal function, electrolytes replacement per protocol. D5 1/2 NS with 20 mEq KCl@50ml/hr 80 mEq KCl 1 now. 2 g mag sulfate. Recheck at 1600 hrs. Continue oxybutynin 5 mg every 8 hours GI: Elevated AST, Alk phos Monitor LFT's, CT abd/pelvis without evidence of overt acute cholecystitis Tube feeds- Glucerna 1.5 with goal rate 45ml/hr Lansoprazole for GI prophylaxis Docusate sodium/senna 1 tablet twice daily for bowel regimen consult GI for PEG. ID: Urinary tract infection ESBL E. coli bacteremia Pneumonia with Stenotrophomonas s/p Septic shock ID is following Continue with abx per ID (levofloxacin, vancomycin) Recheck sputum cx Follow up blood cultures negative 03/11, 03/15 sputum Stenotrophomonas 03/07: Sputum cx: NG 03/08, 03/09 BC: NGTD 03/06 BC Coag negative staph 03/05 BC: E.coli bacteremia 03/01 BC: E.coli ESBL 03/01 Urine cx: GNR Heme: Normocytic anemia Thrombocytopenia likely 2nd sepsis -Monitor CBC, s/p 2u PRBC 03/06 Heme is following- Dr. Miller Hep PLT ab negative FEN TIBC both low Transfuse one PRBC 03/18 MSKRheum Sacral deep tissue injury SLE positive History of RF - present on admission - does not appear grossly infected - likely not the source of infection - management per wound care nurse Endo: SSI if needed for glycemic control On levothyroxine 50mcg daily. TSH: 0.47 GI prophylaxis- On lansoprazole 30 mg daily DVT prophylaxis- SCD, hold Heparin Sq due to recent [employer] bleed in January ( MRI brain 01/29) and thrombocytopenia Lines: Right subclavian CVL. Maintained today. Possibly discontinue in a.m. 03/23 Level 2 follow-up
[2018-03-23] MEDS ORDERED: fentaNYL Citrate Inj 100 MCG/2 ML Ampul IV.SIG ONE (16:08)
[2018-03-23] MEDS ORDERED: Midazolam Inj 5 MG/ML 1 ML Vial ONE (16:10)
[2018-03-23] MEDS ORDERED: fentaNYL Citrate Inj 100 MCG/2 ML Ampul ONE (16:10)
[2018-03-23 17:17] LABS: Anion Gap 5 meq/L (5-15); Blood Urea Nitrogen 7 mg/dL (7-18); Calcium 6.5 mg/dL (8.5-10.1); Carbon Dioxide 25.4 meq/L (21.0-32.0); Chloride 115 meq/L (98-107); Glomerular Filtration Rate Greater Than 89 mL/min (>89); Glucose,Random 239 mg/dL (74-106); Magnesium 1.8 mg/dL (1.5-2.5); Potassium 3.5 meq/L (3.5-5.1); Sodium 145 meq/L (136-145)
--- NOTE | 2018-03-23 17:27 | P.PCN ---
Date of procedure: 03/23/18 Pre-op diagnosis: Dysphagia, respiratory failure needs PEG Post-op diagnosis: other Procedure: PROCEDURE PERFORMED EGD with PEG placement INDICATION FOR PROCEDURE Respiratory failure, dysphagia, needs PEG tube PROCEDURE: The procedure, risks and benefits were discussed with Patient/POA and informed consent was obtained. Anesthesia sedated Patient with Diprivan. Patient was placed in the left lateral decubitus position. EGD: The Pentax videoscope was introduced through the oropharynx and advanced to the second portion of the duodenum under direct visualization. Retroflexion was performed in the stomach. FINDINGS: The esophagus this was normal The stomach this was normal The duodenum this was normal Following the evaluation of the stomach and the duodenum the stomach was insufflated with air and the area of PEG placement was identified through indentation and transillumination the area was prepped and draped in usual fashion 5 cc of lidocaine were injected locally a small incision was made then an Angiocath was passed into the stomach through which a guidewire was passed this was retrieved with the scope into that a PEG tube was attached and pulled into place and thereafter secured in usual fashion The patient tolerated procedure well and there are no immediate complications ESTIMATED BLOOD LOSS: None SPECIMENS REMOVED: None COMPLICATIONS: None IMPRESSION: Normal EGD Successful PEG placement PLAN: 1. May use PEG tube for medications today 2. May start feeding tomorrow 3. May obtain nutritional consult for tube feeding 4. Flush tube with 50 cc of water every 4-6 hours 5. Always flush tube after feedings 6. Apply abdominal binder as necessary 7. Clamp G-tube after use and flush. Anesthesia: other (Patient was given Versed 3 mg and fentanyl 50 mg IV) Surgeon: Gume Sutton Pathology: none sent Condition: stable Disposition: no change
[2018-03-23 17:33] LABS: Total Protein 4.8 g/dL (6.4-8.2)
[2018-03-23] MEDS: Collagenase Oint 30 GM Tube TOPICAL SCH (18:28)
[2018-03-23] MEDS: KCL 20 mEq/D5W/NaCl 0.45% Inj 1,000 ML IV.CONT SCH (18:31)
[2018-03-24] MEDS: Oral Hygiene Kit OROPHARYNG SCH ×3 (03:31→16:53)
[2018-03-24] MEDS: Hypromellose 0.3% Opth Gel 10 GM Bottle EACH EYE SCH ×3 (03:31→20:14)
[2018-03-24 04:30] LABS: Baso % (Auto) 0.2 % (0.0-2.0); Eos % (Auto) 0.3 % (0.0-4.0); Hematocrit 29.4 % (35.0-46.0); Hemoglobin 9.9 gm/dL (11.6-15.3); Lymph # (Auto) 1.4 th/mm3 (1.0-4.8); Lymph % (Auto) 18.4 % (9.0-44.0); Mean Corpuscular HGB Conc 33.6 % (32.0-36.0); Mean Corpuscular Hemoglobin 30.3 pg (27.0-34.0); Mean Corpuscular Volume 90.3 fL (80.0-100.0); Mean Platelet Volume 8.2 fL (7.0-11.0); Mono # (Auto) 0.4 th/mm3 (0.0-0.9); Mono % (Auto) 5.5 % (0.0-8.0); Neut # (Auto) 5.8 th/mm3 (1.8-7.7); Neut % (Auto) 75.6 % (16.0-70.0); Platelet Count 141 th/mm3 (150-450); Red Blood Count 3.26 mil/mm3 (4.00-5.30); Red Cell Distribution Width 16.4 % (11.6-17.2); White Blood Count 7.7 th/mm3 (4.0-11.0)
[2018-03-24 04:53] LABS: INR 1.2 Ratio; Prothrombin Time 12.1 sec (9.8-11.6)
[2018-03-24 05:01] LABS: Anion Gap 10 meq/L (5-15); Blood Urea Nitrogen 6 mg/dL (7-18); Calcium 7.2 mg/dL (8.5-10.1); Carbon Dioxide 21.5 meq/L (21.0-32.0); Chloride 112 meq/L (98-107); Glomerular Filtration Rate Greater Than 89 mL/min (>89); Glucose,Random 83 mg/dL (74-106); Magnesium 1.9 mg/dL (1.5-2.5); Potassium 3.8 meq/L (3.5-5.1); Sodium 143 meq/L (136-145)
[2018-03-24 05:02] LABS: Phosphorus 2.1 mg/dL (2.5-4.9)
[2018-03-24 05:16] LABS: Total Protein 4.7 g/dL (6.4-8.2)
[2018-03-24] MEDS: Vancomycin Inj 1,000 MG in Sodium Chlor 0.9% Inj 250 ML IV.SIG SCH ×2 (05:21→18:17)
[2018-03-24] MEDS: Insulin NovoLIN Regular Correctional Sugar Inj SQ SCH ×3 (05:22→20:14)
[2018-03-24] MEDS: Levothyroxine 50 MCG Tablet PO SCH (05:22)
--- NOTE | 2018-03-24 06:41 | XR ---
EXAM DATE: 03/24/2018 6:37 AM EDT AGE/SEX: 62 years / Female INDICATIONS: Shortness of breath. CLINICAL DATA: This is the patient's subsequent encounter. Patient reports that signs and symptoms h ave been present for 3 weeks and indicates a pain score of Nonresponsive. MEDICAL/SURGICAL HISTORY: . Cerebrovascular disease. Hypertension. Diabetes. LUPUS Fusion, ce rvical. COMPARISON: C, CHEST 1V SINGLE AP, 03/23/2018. . FINDINGS: Bilateral hazy opacities persists, fairly diffuse on the left and midlung/basilar on the right, not s ignificantly changed. At least small, bilateral pleural effusions are likely. No pneumothorax. Heart size stable, within normal limits. Endotracheal tube tip is approximately 1 cm above the raz. Nasogastric tube has been removed. Righ t arm PICC with tip in the superior vena cava unchanged. CONCLUSION: No significant change bilateral parenchymal opacities and small pleural effusions. Endotracheal tube tip is close to the raz. Nasogastric tube has been removed Electronically signed by: Best Arredondo MD 03/24/2018 6:40 AM EDT
[2018-03-24] MEDS ORDERED: SODIUM CHLOR 0.9% IV.SIG PRN (06:55)
[2018-03-24] MEDS ORDERED: SODIUM PHOSPHATE IV.SIG PRN (06:55)
[2018-03-24] MEDS: Metoprolol Tartrate 25 MG Tablet PO SCH ×2 (08:19→20:15)
[2018-03-24] MEDS: Gabapentin 300 MG Capsule PO SCH ×3 (08:19→18:17)
[2018-03-24] MEDS: Heparin Central Flush 100 UNIT/ML 5 ML Vial IV.FLUSH SCH (08:20)
[2018-03-24] MEDS: Chlorhexidine 0.12% Oral Kit 15 ML UDC OROPHARYNG SCH ×2 (08:21→20:15)
--- NOTE | 2018-03-24 08:43 | P.PNCC ---
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 she was sent to [facility] for procedural management of these. She was then transferred to [facility] on 02/28. Please see the dictated hospitalist consult note on 02/28 on admission to [facility] for a detailed record of the hospital course while at [facility]. Today, she was found to be very tachycardic in the 160s and hypotensive with sbp in the 70s. She was emergently transferred to the ICU after rapid response was called for evaluation and management of her hypotension. Of note, she did not have iv access. I met her on arrival to the ICU. I placed 2 18g piv. 12-lead EKG confirms sinus tachycardia. I due to the fast rate, I gave 6mg adenosine to slow it down diagnostically, and it slowed down temporarily to a HR in the 70s, confirming sinus rhythm. I performed bedside critical care echocardiography which demonstrates grossly preserve biventricular function. in particular, RV is decompressed and well-functioning. IVC is completely collapsable. no pericardial effusion. I gave her 3L NS bolus ivf which improved her SBP to 110s and decreased her HR to 110s. She is afebrile. stat CBC shows anemia (history of recent femoral artery pseudoaneurysm), CMP demonstrates elevated AST and Alk phos, elevated lactate at 3.7. Cr elevated above baseline. Patient denies any complaints to me. she is mostly ugandan speaking, but communicates in basic Sinhala. specifically denies chest pain, shortness of breath, fever/chills, nausea, vomiting, abdominal pain, constipation, diarrhea. I discussed with her family, she has been eating and drinking well even up to today. ROS otherwise negative. 03/02 Patient is awake lying in bed in TRAV. On room air oxygen. T:103.2 this morning She was hypotensive overnight initially placed on Neosyn now off pressor with BP 147/67 with MAP 96. 03/03 No events overnight. Seems more awake and alert this morning. T: 100.2 at midnight. BP and HR better ( 119/58 with MAP 83mmHg). On no pressors. BC from 03/01: E.coli ESBL 6/30: clinically improving. slightly tachycardic. on appropriate therapy for her ESBL e. coli. denies complaints. hemodynamically stable. on room air. 03/05: Patient developed worsening respiratory distress yesterday and required endotracheal intubation and was placed on mechanical ventilation. Hypotension overnight for which patient was started on phenylephrine. Developed A. fib with RVR and was started on amiodarone gtt. 03/06 Patient remains sedated and intubated. Tmax 101.6, On Amio drip. 03/07 Patient remains intubated off sedation. s/p transfusion 2u PRBC yesterday. Tolerating tube feeds. Afebrile. Off Amio drip. 03/08 Patient remains intubated. T:100.9 last night. 03/09 No events overnight. Tolerated CPAP for approx 4 hrs yesterday. Off sedation. Afebrile. 03/10 No events overnight T:100.1 at 4am, Awake, patient was on CPAP for short time yesterday and placed back on PRVC mode for low TV and tachycardia. 03/11 No events overnight. Tolerated CPAP x 4hrs yesterday. T:100.6 yesterday. On no sedation. 03/12 Patient was extubated yesterday reintubated last night for resp distress and AMS. Afebrile. On Diprivan infusion for sedation. 03/13: Remains intubated critical, remains encephalopathy unresponsive off sedation. Afebrile EEG showed significant encephalopathy no seizures. Right subclavian central line placed, remains on Luis-Synephrine to keep map above 65 03/14: Remains encephalopathy again unresponsive. Eyes are open but no tracking did not follow commands. Remains leukopenic. Weaned off Luis-Synephrine. Not tolerating CPAP due to low tidal volume 03/15: Continues to fail CPAP due to low tidal volume. IV Levaquin added yesterday by ID for stenotrophomonas in the sputum. Remains encephalopathic did not follow commands but eyes are spontaneously open. I have requested neurology consult today 03/16: T-max 100.1. Currently 99. EEG has been performed. Does not follow commands. Tube feeds at 30 cc an hour. Positive BM. 03/17 Patient remains intubated on Precedex drip but awake. 03/18 T-current 100.7. Tolerating tube feeds at goal. Arousable the ventilator and follows command. Left side is chronically weaker. Discussed with Dr. Gutierrez /neurology. Reviewed MRI brain. Recommended evaluation by neurosurgery for abnormal MRI C-spine. Patient's CT surgeon at [facility] is Dr. Ku [phone] 03/19: T-max 100.7. Currently 99. Tachycardic. Tolerated CPAP trial. On the ventilator currently. Positive BM yesterday. 03/20 Patient was on Diprivan and Precedex drip overnight now off sedation. Afebrile. 03/21: no improvements. has been intubated for 17 days, and failed extubation quickly 03/12. needs trach and peg for further progress. 03/22: Afebrile. Intubation day #18. Patient currently contemplating trach and PEG options. Currently off dexmedetomidine drip. 03/23: Afebrile. Plan for PEG tube today. Awake and alert and interactive on the ventilator. Tube feeds are currently off. Subjective 03/24: Afebrile. Status post PEG tube by Dr. Orellana 03/23. Plan for percutaneous tracheostomy Dr. Serrano at 10 AM today 03/24. Tachycardic. Will replace phosphorus and magnesium this a.m. Objective Vital Signs / I&O: Vital Signs 03/23/18 10:00 03/23/18 11:27 03/23/18 12:00 Temperature 98.2 F Pulse Rate 99 H 110 H 113 H Respiratory Rate 25 H 13 Blood Pressure 125/71 Pulse Oximetry 99 03/23/18 14:00 03/23/18 16:00 03/23/18 16:14 Temperature 100.8 F H Pulse Rate 111 H 117 H Respiratory Rate 16 16 Blood Pressure 144/94 H Pulse Oximetry 99 98 03/23/18 18:00 03/23/18 20:00 03/23/18 20:23 Temperature 96.6 F L Pulse Rate 117 H 111 H 113 H Respiratory Rate 17 16 Blood Pressure 128/90 Pulse Oximetry 100 03/23/18 20:26 03/23/18 22:00 03/24/18 00:00 Temperature 98.6 F Pulse Rate 104 H 107 H Respiratory Rate 20 16 Blood Pressure 129/82 Pulse Oximetry 100 100 03/24/18 00:57 03/24/18 02:00 03/24/18 03:19 Temperature Pulse Rate 110 H 110 H 116 H Respiratory Rate 16 16 Blood Pressure Pulse Oximetry 100 100 03/24/18 04:00 03/24/18 06:00 03/24/18 07:41 Temperature 99.5 F Pulse Rate 120 H 126 H 125 H Respiratory Rate 16 16 Blood Pressure 108/67 Pulse Oximetry 100 100 Intake & Output 03/23/18 03/24/18 03/24/18 18:59 06:59 18:59 Intake Total 100 / 100 2000 / 2000 Output Total 1700 / 1700 1700 / 1700 Balance -1600 / -1600 300 / 300 Weight 75.1 kg Intake: IV 100 / 100 1850 / 1850 D5W/Normal Saline Inj 1,000 ML 1000 / 1000 @ 50 mls/hr IV.CONT .Q20H KARINA Rx#:[id number] Levaquin 750 mg Premix Inj 150 150 / 150 ML @ 100 mls/hr IV.SIG Q24H KARINA Rx#:[id number] KCl 40 mEq Premix Inj 40 meq In 100 / 100 200 / 200 100 ml @ 25 mls/hr IV.SIG UNSCH PRN Rx#:[id number] Vancomycin Inj 1,000 MG In NS 500 / 500 Inj 250 ML @ 250 mls/hr IV.SIG Q12H KARINA Rx#:[id number] Tube Feeding 0 / 0 Water Bolus Amount 150 / 150 Output: Urine Amount (Catheter) 1700 / 1700 1700 / 1700 Straight 1700 / 1700 1700 / 1700 Other: Date of Last Bowel Movement 03/23/18 03/24/18 # Bowel Movements 5 # Incontinent Bowel Movements 4 Result Diagrams: 03/24/18 03:30 03/24/18 03:30 Other Results: Microbiology 03/16/18 19:40 Blood - Line Aerobic Blood Culture - Final No growth in 5 days 03/16/18 19:40 Blood - Line Anaerobic Blood Culture - Final No growth in 5 days 03/16/18 19:45 Blood - Line Aerobic Blood Culture - Final No growth in 5 days 03/16/18 19:45 Blood - Line Anaerobic Blood Culture - Final No growth in 5 days 03/16/18 15:28 Catheterized Urine Urine Culture - Final No growth in 48 hours 03/15/18 04:50 Sputum - Endotracheal Gram Stain - Final 03/15/18 04:50 Sputum - Endotracheal Sputum Culture - Final Stenotrophomonas maltophilia 03/12/18 00:46 Blood - Peripheral Aerobic Blood Culture - Final No growth in 5 days 03/12/18 00:46 Blood - Peripheral Anaerobic Blood Culture - Final No growth in 5 days 03/12/18 00:40 Blood - Peripheral Aerobic Blood Culture - Final No growth in 5 days 03/12/18 00:40 Blood - Peripheral Anaerobic Blood Culture - Final No growth in 5 days 03/15/18 23:15 Stool Stool Occult Blood (ABEBE) - Final Hemoccult negative 03/11/18 22:30 Sputum - Endotracheal Gram Stain - Final 03/11/18 22:30 Sputum - Endotracheal Sputum Culture - Final Stenotrophomonas maltophilia 03/09/18 19:21 Blood - Peripheral Aerobic Blood Culture - Final No growth in 5 days 03/09/18 19:21 Blood - Peripheral Anaerobic Blood Culture - Final No growth in 5 days 03/09/18 19:28 Blood - Peripheral Aerobic Blood Culture - Final No growth in 5 days 03/09/18 19:28 Blood - Peripheral Anaerobic Blood Culture - Final No growth in 5 days 03/08/18 11:00 Blood - Peripheral Aerobic Blood Culture - Final No growth in 5 days 03/08/18 11:00 Blood - Peripheral Anaerobic Blood Culture - Final No growth in 5 days 03/08/18 11:09 Blood - Peripheral Aerobic Blood Culture - Final No growth in 5 days 03/08/18 11:09 Blood - Peripheral Anaerobic Blood Culture - Final No growth in 5 days 03/09/18 16:45 Sputum - Endotracheal Gram Stain - Final 03/09/18 16:45 Sputum - Endotracheal Sputum Culture - Final Heavy growth normal respiratory ramesh 03/06/18 05:12 Blood - Peripheral Aerobic Blood Culture - Final Staphylococcus coag negative 03/06/18 05:12 Blood - Peripheral Anaerobic Blood Culture - Final Staphylococcus epidermidis 03/05/18 15:33 Blood - Peripheral Aerobic Blood Culture - Final No growth in 5 days 03/05/18 15:33 Blood - Peripheral Anaerobic Blood Culture - Final Escherichia coli ESBL positive 03/08/18 17:55 Catheterized Urine Urine Culture - Final No growth in 48 hours 03/07/18 16:00 Sputum - Endotracheal Gram Stain - Final 03/07/18 16:00 Sputum - Endotracheal Sputum Culture - Final Heavy growth normal respiratory ramesh 03/05/18 12:55 Blood - Peripheral Aerobic Blood Culture - Final Escherichia coli ESBL positive 03/05/18 12:55 Blood - Peripheral Anaerobic Blood Culture - Final Escherichia coli ESBL positive Imaging: Chest X-Ray 03/07/18 00:00 CONCLUSION: 1. Persistent left lower lobe consolidation and pleural effusion. 2. Interval resolution of diffuse infiltrates in the right lung and reduction in the infiltrates in the left upper lung. Chest X-Ray 03/09/18 08:51 CONCLUSION: 1. Interval removal of left subclavian central line. 2. Stable small left pleural effusion and associated airspace disease in the left lower lobe. 3. Continued improving aeration of the left upper lung zone. 4. Stable mild airspace disease in the right lower lung zone. Chest X-Ray 03/11/18 21:53 CONCLUSION: Basilar airspace disease and pleural effusions similar to March 09. Endotracheal tube tip just above raz. Head CT 03/12/18 06:59 CONCLUSION: 1. No acute intracranial abnormality. 2. Minimal fluid in the mastoid air cells. Chest X-Ray 03/12/18 21:40 CONCLUSION: Placement of a right central line with tip in right atrium. No pneumothorax. Chest X-Ray 03/14/18 06:00 CONCLUSION: 1. No significant interval change. 2. Stable tubes and lines. 3. Stable small bilateral pleural effusions and associated lower lung zone airspace disease. Chest X-Ray 03/15/18 06:00 CONCLUSION: 1. No significant interval change. 2. Stable tubes and lines. 3. Stable bilateral [id number] pleural effusions with associated lower lobe airspace disease. Cervical Spine MRI 03/16/18 00:00 CONCLUSION: 1. Persistent abnormal signal in the cord extending from C4 down to T1. Much of this likely related to edema. The edema appears to extend over a smaller area on the current exam. There is a linear area of increased signal seen on the T1 and T2-weighted images at the left-sided cord at the C7-T1 level which may represent an area of focal hemorrhage within the cord. 2. Status post laminectomy with posterior fusion and hardware placed at the C4- T1 levels. 3. Prevertebral soft tissue swelling. 4. No focal fluid collection to suggest an abscess is seen. Head MRI 03/16/18 00:00 CONCLUSION: 1. There is a new area of nodular enhancement, abnormal FLAIR signal, and mild restricted diffusion at the baeza matter white matter junction in the left occipital lobe. 3 additional small areas of nodular enhancement measuring approximately 3 mm are also identified along the baeza matter surface in the left parietal high convexity. Etiology is nonspecific. Metastatic disease is one consideration but given the history infection is another consideration. Suggest attention to these areas at follow-up imaging. 2. Increased fluid in the mastoid air cells bilaterally. Chest X-Ray 03/17/18 06:00 CONCLUSION: Better aeration of the lungs with bibasilar densities and small pleural effusions. Chest X-Ray 03/19/18 06:00 CONCLUSION: Endotracheal tube tip is engaged in the left mainstem bronchus. Retraction by couple of centimeters recommended. Otherwise stable chest Chest X-Ray 03/20/18 05:51 CONCLUSION: Endotracheal tube tip remains in left mainstem bronchus. This should be withdrawn about 3 cm. Bilateral mostly basilar airspace disease and small pleural effusions. Chest X-Ray 03/20/18 06:00 CONCLUSION: Endotracheal tube tip in left mainstem bronchus. Bilateral mostly basilar airspace disease and effusions similar to March 19. Abdomen X-Ray 03/21/18 00:00 CONCLUSION: Nasogastric or orogastric tube tip in distal stomach. Chest X-Ray 03/23/18 06:00 CONCLUSION: Endotracheal tube tip at raz. NG enters stomach. Right central line in superior vena cava. Bilateral airspace disease and pleural effusions similar to March 20. Chest X-Ray 03/24/18 06:00 CONCLUSION: No significant change bilateral parenchymal opacities and small pleural effusions. Endotracheal tube tip is close to the raz. Nasogastric tube has been removed Objective Remarks: GENERAL: Patient is 62 yo female patient intubated and off sedation in no acute distress SKIN: Warm and dry. No rash. Sacral DTI HEAD: Normocephalic. EYES: No scleral icterus. No injection or drainage. NECK: Supple, trachea midline. No JVD or lymphadenopathy. CARDIOVASCULAR: RRR. S1, S2. No S4. Without murmur RESPIRATORY: Breath sounds equal bilaterally. No accessory muscle use. Diminished in the bases bilaterally. GASTROINTESTINAL: Abdomen soft, non-tender, nondistended. Hypoactive bowel sounds appreciated. PEG tube site is clean dry and intact. MUSCULOSKELETAL: Trace bilateral lower extremity edema. NEURO: Arousable and follows commands with bilateral upper extremities. Nods head appropriately questions. She is Bulgarian-speaking and can understand some Sinhala phrases. Assessment and Plan - Assessment and Plan Plan: Neuro/Psych: History of C6 vertebral aneurysm and underwent a C4 through T1 posterior fusion resection of the C6 mass which was negative for malignancy with 90% of mass removed, just showing inflammation, and a C4 through 7 laminectomy on 02/03/2018. Severe metabolic encephalopathy Recent aneurysmal subarachnoid hemorrhage treated at [facility] in January 2018 History of left occipital subarachnoid hemorrhage February 15, 2018 Cord edema possible hemorrhage within the cord level C7 through T1 Off Precedex drip , monitor neuro status Repeat CT brain showed no acute abnormalities. EEG significant encephalopathy Seen by Dr. Newberry from [facility]- No further neurosurgical intervention anticipated at this point. MRI brain: previously noted subarachnoid hemorrhage overlying the occipital lobes has resolved. Tiny trace of residual hemorrhage in the posterior lateral ventricles. Stable chronic white matter changes. No new or acute intracranial process. Neurology consult requested Dr. Arellano/follow-up has followed EEG: Mod. encephalopathy MRI brain 03/16 : There is a new area of nodular enhancement, abnormal FLAIR signal, and mild restricted diffusion at the baeza matter white matter junction in the left occipital lobe. 3 additional small areas of nodular enhancement measuring approximately 3 mm are also identified along the baeza matter surface in the left parietal high convexity. Etiology is nonspecific. MRI cervical spine 03/16: Persistent abnormal signal in the cord extending from C4 down to T1. Much of this likely related to edema. The edema appears to extend over a smaller area on the current exam. There is a linear area of increased signal seen on the T1 and T2-weighted images at the left-sided cord at the C7-T1 level which may represent an area of focal hemorrhage within the cord. Status post laminectomy with posterior fusion and hardware placed at the C4-T1 levels. Prevertebral soft tissue swelling. No focal fluid collection to suggest an abscess. Currently on gabapentin 600 mg 3 times daily/home medication on hold for neuropathy pain Currently on cyclobenzaprine 5 mg every 8 hours. Hold secondary to AMS Acetaminophen 650 every 6 hours as needed fever C-collar is been removed Her neurosurgeon is Dr. Ku [phone] Pulm: Acute hypoxemic respiratory failure HCAP Extubated and reintubated on 03/11, failing CPAP trials due to low tidal volumes. PRVC 16/500/1/5/35 Ventilator bundle Albuterol/ipratropium aerosols every 4 hours with albuterol aerosols every 2 hours. Dyspnea Daily spontaneous breathing trials CT pulmonary angiogram chest: No PE, minimal consolidative changes left base has been > 18 days on mechanical ventilation. remains very weak with most likely myopathy of critical illness, poor tidal volumes. quickly failed trial of extubation 03/11. will require tracheostomy for further care. have consulted general surgery for trach. CV: A. fib/sinus tachycardia Septic shock- resolved. Hyperlipidemia Place on Lopressor 25mg Q12 Monitor HR and BP keep MAP>65mmHg. on IV metoprolol 2.5 mg every 6 hours PRN tachycardia Pravachol 20mg daily for dyslipidemia - Elevated troponin, type II demand ischemia NSTEMI - Echo 03/06 EF 50-55% - Will not anticoagulate at this time given risk/benefit with recent head bleed Cortisol level: 41 Cards has followed Renal/FEN/: Urinary retention Hypernatremia Hypopotassemia Hypomagnesia Monitor renal function, electrolytes replacement per protocol. D5 1/2 NS with 20 mEq KCl@50ml/hr 80 mEq KCl 1 now. 2 g mag sulfate. Recheck at 1600 hrs. Continue oxybutynin 5 mg every 8 hours GI: Status post PEG tube 03/[address] Sutton Monitor LFT's, CT abd/pelvis without evidence of overt acute cholecystitis Tube feeds- Glucerna 1.5 with goal rate 45ml/hr currently on hold. Lansoprazole for GI prophylaxis Docusate sodium/senna 1 tablet twice daily for bowel regimen consult GI for PEG. ID: Urinary tract infection ESBL E. coli bacteremia Pneumonia with Stenotrophomonas s/p Septic shock ID is following Continue with abx per ID (levofloxacin, vancomycin) Recheck sputum cx Follow up blood cultures negative 03/11, 03/15 sputum Stenotrophomonas 03/07: Sputum cx: NG 03/08, 03/09 BC: NGTD 03/06 BC Coag negative staph 03/05 BC: E.coli bacteremia 03/01 BC: E.coli ESBL 03/01 Urine cx: GNR Heme: Normocytic anemia Thrombocytopenia likely 2nd sepsis -Monitor CBC, s/p 2u PRBC 03/06 Heme is following- Dr. Miller Hep PLT ab negative FEN TIBC both low Transfuse one PRBC 03/18 MSKRheum Sacral deep tissue injury SLE positive History of RF - present on admission - does not appear grossly infected - likely not the source of infection - management per wound care nurse Endo: SSI if needed for glycemic control On levothyroxine 50mcg daily. TSH: 0.47 GI prophylaxis- On lansoprazole 30 mg daily DVT prophylaxis- SCD, hold Heparin Sq due to recent RN ANESTHETIST bleed in January ( MRI brain 01/29) and thrombocytopenia Lines: Right subclavian CVL. Continued 03/23 PICC placed 03/23 Level 2 follow-up
[2018-03-24] MEDS ORDERED: fentaNYL Citrate Inj 100 MCG/2 ML Ampul IV.PUSH ONE (10:00)
[2018-03-24] MEDS ORDERED: Mag Sulf 1 gm/100 ml Premix 100 ML IV.SIG ONE (10:00)
[2018-03-24] MEDS ORDERED: Potassium Phosphate Inj 30 MMOL in Sodium Chlor 0.9% Inj 250 ML IV.SIG ONE (11:00)
--- NOTE | 2018-03-24 13:13 | P.DIET ---
Nutritional Evaluation Type of nutrition evaluation: follow-up Nutrition consult regarding: Tube Feeding Nutrition screening: Pressure Injury Objective - Diagnosis SVT - Objective % IBW: 95 Body Weight Used for Calculations: IBW (44.1kg) Energy Needs - Lower Range (kCal/kg): 33 Energy Needs - Upper Range (kCal/kg): 38 Lower Limit kCal/kg (kCals): 1,455 Upper Limit kCal/kg (kCals): 1,676 Lower Limit Protein Factor (Grams per Kg): 1.2 Upper Limit Protein Factor (Grams per Kg): 1.8 Lower Protein Needs (Protein): 53 Upper Protein Needs (Protein): 79 Dietitian Reviewed in Medical Record: Curent medications, Intake & Output, Labs , Tube feeding, Wound/DTI Diet Order: NPO Wound Care Note: 03/07 WOC consult: 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 Pt had PEG placed and is having trach today. Pt's nutritional needs as assessed above. Due to unstageable sacral wound and pt's increased nutritional needs, recommend a new goal rate of 50 ml/hr of Glucerna 1.5 for 22 hrs (hold for Synthroid) providing 1650 kcals, 91 gms protein and 835 mls free water. Also recommend Jamal 1 packet bid via feeding tube to promote wound healing. Will monitor TF tolerance , clinical course. Recommendations: PT REASSESSED Recommend TF Glucerna 1.5 with new goal rate 50 ml/hr for 22 hrs (Synthroid) Recommend Jamal 1 packet bid via feeding tube to promote wound healing. Dietitian to Monitor: Lab values, Intake & Output, Tube feeding tolerance, Weight change, Wound/skin status, Medical course
--- NOTE | 2018-03-24 13:18 | P.CONGS ---
HPI Gen Surgery Consult Note Consult date: 03/24/18 Narrative: The patient is a 62 yo F with recent SAH and cerebrovascular aneurysm now with prolonged respiratory failure. I am consulted for tracheostomy placement. Review of Systems unobtainable due to endotracheal tube PMFSH - History History Provided By: Family Member, Medical Record - Medical / Surgical Hx Neg / Unobtainable Medical Problems Denied: Unable to Obtain - Medical History Medical History: Medical History (Last Updated 03/21/18 @ 18:18 by Anselmo Douglas MD) Rheumatoid arthritis (Acute) Subarachnoid hemorrhage (Acute) Thrombocytopenia (Acute) Anemia (Acute) Hypothyroidism (Acute) Hypertension (Acute) Diabetes mellitus (Acute) Lupus (systemic lupus erythematosus) (Acute) History of hysterectomy Left renal mass - Surgical History Surgical History: Surgical History (Last Updated 03/21/18 @ 18:42 by Anselmo Douglas MD) S/P laminectomy with spinal fusion (Acute) History of bladder surgery (Acute) History of appendectomy S/P laminectomy with spinal fusion - Family History Family History: Family History (Last Updated 03/21/18 @ 18:37 by Anselmo Douglas MD) Mother Myocardial infarction Other Diabetes mellitus Hypertension - Tobacco History Second Hand Smoke Exposure: No Tobacco Use In Past 30 Days: No Smoking Status: Never smoker - Alcohol History How Often Do You Have a Drink Containing Alcohol: Never - Substance Use History Substance History: No History of Abuse - Travel History History of Recent Travel: No Recent Travel in the [place] Within the Last 8 Weeks: No Recent Travel Out of the Country Within the Last 8 Weeks: No Medications and Allergies Active Medications: Active Medications Acetaminophen (Tylenol) 650 mg PO Q6H PRN PRN Reason: PAIN 1-5 AND/OR FEVER > 101F Last Admin: 03/23/18 15:51 Dose: 650 mg Albuterol (Albuterol Neb (Prn)) 2.5 mg NEB Q2HR NEB PRN PRN Reason: DYSPNEA Albuterol (Duoneb Neb (Brian)) 1 ampul NEB Q4HR NEB BRIAN Last Admin: 03/24/18 11:08 Dose: 1 ampul Artificial Tears (Genteal Severe Dry Eye Relief 0.3% Opth Gel) 1 drops EACH EYE Q8H BRIAN Last Admin: 03/24/18 03:31 Dose: 1 drops Chlorhexidine Gluconate (Peridex 0.12% Oral Kit) 15 ml OROPHARYNG BID@0800, 2000 [facility] Last Admin: 03/24/18 08:21 Dose: 15 ml Collagenase (Santyl Oint) 1 applicatio TOPICAL Q24H [facility] Last Admin: 03/23/18 18:28 Dose: 1 applicatio Cyclobenzaprine HCl (Flexeril) 5 mg PO TID [facility] Last Admin: 03/24/18 08:19 Dose: 5 mg Dextrose (D50w Vial) 50 ml IV.PUSH UNSCH PRN PRN Reason: PER HYPOGLYCEMIA PROTOCOL Last Admin: 03/23/18 23:41 Dose: 50 ml Gabapentin (Neurontin) 600 mg PO TID [facility] Last Admin: 03/24/18 08:19 Dose: 600 mg Glucagon (Glucagon Inj) 1 mg OTHER PRN PRN PRN Reason: for Hypoglycemia Protocol Heparin Sodium (Porcine) (Heparin Central Flush) 0 unit IV.FLUSH UNSCH PRN PRN Reason: Flush PICC Line Heparin Sodium (Porcine) (Heparin Central Flush) 0 unit IV.FLUSH DAILY [facility] Last Admin: 03/24/18 08:20 Dose: 200 unit Magnesium Sulfate Inj 4 gm/ (Sodium Chloride) 100 mls @ 50 mls/hr IV.SIG UNSCH PRN PRN Reason: For Magnesium 0.9 - 1.1 mg/dL Magnesium Sulfate Inj 2 gm/ (Sodium Chloride) 100 mls @ 50 mls/hr IV.SIG UNSCH PRN PRN Reason: For Magnesium 1.2 - 1.6 mg/dL Last Admin: 03/23/18 05:21 Dose: 50 mls/hr Potassium Chloride (Kcl 40 Meq Premix Inj) 40 meq in 100 mls @ 25 mls/hr IV.SIG Q2H PRN PRN Reason: For Potassium 2.8 - 3.2 mEq/L Potassium Chloride (Kcl 40 Meq Premix Inj) 40 meq in 100 mls @ 25 mls/hr IV.SIG UNSCH PRN PRN Reason: For Potassium 3.3 - 3.5 mEq/L Last Infusion: 03/24/18 02:27 Dose: Infused Potassium Chloride (Kcl 20 Meq Premix Inj) 20 meq in 100 mls @ 50 mls/hr IV.SIG Q2H PRN PRN Reason: For Potassium 2.8 - 3.2 mEq/L Potassium Phosphate 30 mmol/ (Sodium Chloride) 260 mls @ 42 mls/hr IV.SIG UNSCH PRN PRN Reason: SEE LABEL COMMENTS Last Admin: 03/21/18 07:09 Dose: 42 mls/hr Pharmacy Profile Note (Vancomycin Consult Pharmacy) 0 mls @ 0 mls/hr OTHER UNSCH BRIAN Vancomycin HCl 1,000 mg/ (Sodium Chloride) 250 mls @ 250 mls/hr IV.SIG Q12H BRIAN Last Infusion: 03/24/18 06:41 Dose: Infused Levofloxacin/Dextrose (Levaquin 750 Mg Premix Inj) 150 mls @ 100 mls/hr IV.SIG Q24H [facility] Last Infusion: 03/23/18 22:50 Dose: Infused Dexmedetomidine HCl 200 mcg/ (Sodium Chloride) 50 mls @ 3.53 mls/hr IV.CONT TITRATE PRN; Protocol PRN Reason: Per Protocol Last Titration: 03/22/18 11:00 Dose: 0 mcg/kg/hr, 0 mls/hr Potassium Chloride/Dextrose/Sod Cl (D5w/1/2ns + Kcl 20 Meq Inj) 1,000 mls @ 50 mls/hr IV.CONT .Q20H [facility] Last Admin: 03/23/18 18:31 Dose: 50 mls/hr Sodium Phosphate 30 meq/ (Sodium Chloride) 257.5 mls @ 42 mls/hr IV.SIG UNSCH PRN PRN Reason: For Phosphorus < 2.5 mg/dL Potassium Phosphate 30 mmol/ (Sodium Chloride) 260 mls @ 43.333 mls/hr IV.SIG ONCE ONE Stop: 03/24/18 16:59 Insulin Human Regular (Novolin R Supplemental Scale) 0 units SQ Q6HR BRIAN; Protocol Last Admin: 03/24/18 05:22 Dose: Not Given Lansoprazole (Prevacid Solutab) 30 mg NG/OG DAILY [facility] Last Admin: 03/24/18 08:21 Dose: 30 mg Levothyroxine Sodium (Synthroid) 50 mcg PO DAILY@0600 [facility] Last Admin: 03/24/18 05:22 Dose: 50 mcg Magnesium Oxide (Mag-Ox) 800 mg PO UNSCH PRN PRN Reason: For Magnesium 1.2 - 1.6 mg/dL Metoprolol Tartrate (Lopressor) 25 mg PO BID [facility] Last Admin: 03/24/18 08:19 Dose: 25 mg Miscellaneous (Pill Splitter) 1 each OTHER UNSCH PRN PRN Reason: SEE LABEL COMMENTS Ondansetron HCl (Zofran Odt) 4 mg PO Q6H PRN PRN Reason: NAUSEA OR VOMITING Last Admin: 03/13/18 05:49 Dose: 4 mg Oxybutynin Chloride (Ditropan) 5 mg PO Q8HR [facility] Last Admin: 03/24/18 05:22 Dose: 5 mg Potassium Bicarb/Potassium Chloride (K-Lyte Cl Eff) 50 meq PO UNSCH PRN PRN Reason: For Potassium 3.3 - 3.5 mEq/L Potassium Phosphate (K-Phos Original) 2,000 mg PO Q4H PRN PRN Reason: Phosphorus Less Than 2.5 mg/dL Potassium Phosphate (K-Phos Original) 2,000 mg PO UNSCH PRN PRN Reason: SEE LABEL COMMENTS Pravastatin Sodium (Pravachol) 20 mg PO DAILY [facility] Last Admin: 03/24/18 08:19 Dose: 20 mg Sodium Chloride (Ns Flush) 0 ml IV.FLUSH UNSCH [facility]; Protocol Last Admin: 03/23/18 09:00 Dose: 10 ml Sodium Chloride (Ns Flush) 2 ml IV.FLUSH BID [facility]; Protocol Last Admin: 03/24/18 08:21 Dose: 2 ml Sodium Chloride (Ns Flush) 0 ml IV.FLUSH DAILY [facility] Last Admin: 03/24/18 08:21 Dose: 10 ml Sodium Chloride (Ns Flush) 0 ml IV.FLUSH UNSCH PRN PRN Reason: FLUSH AFTER USING IV ACCESS Sodium Chloride (Ns Flush) 0 ml IV.FLUSH UNSCH PRN PRN Reason: Flush After Blood Draws Terbutaline Sulfate (Brethine Inj) 1 mg SQ UNSCH PRN PRN Reason: For Extravasation Tramadol HCl (Ultram) 50 mg PO Q8H PRN PRN Reason: PAIN 6-10 Last Admin: 03/24/18 05:57 Dose: 50 mg Allergies Allergy/AdvReac Type Severity Reaction Status Date / Time codeine Allergy Intermediate Verified 01/24/18 17:12 nitroglycerin AdvReac Severe Nausea/Vomi Verified 01/25/18 09:14 ting Home Medications Medication Instructions Recorded Confirmed Type Bactrim DS 1 tab PO BID 03/04/18 03/04/18 History Ditropan XL 5 mg PO Q8HR 03/04/18 03/04/18 History Lopressor 25 mg PO BID 03/04/18 03/04/18 History Multiple Vitamins 1 tab PO DAILY 03/04/18 03/04/18 History [id number] 1 tab PO Q4HR 03/04/18 03/04/18 History cyclobenzaprine 5 mg PO TID 03/04/18 03/04/18 History famotidine 20 mg PO BID 03/04/18 03/04/18 History gabapentin 600 mg PO TID 03/04/18 03/04/18 History levothyroxine 50 mcg PO DAILY 03/04/18 03/04/18 History lovastatin 20 mg PO DAILY 03/04/18 03/04/18 History metformin 500 mg PO BID 03/04/18 03/04/18 History mycophenolate mofetil 1,000 mg PO BID 03/04/18 03/04/18 History prednisone See Label Instructions .ROUTE 03/04/18 03/04/18 History .COMPLEX tramadol 50 mg PO Q8HR 03/04/18 03/04/18 History Exam Vital signs: Vital Signs 03/23/18 14:00 03/23/18 16:00 03/23/18 16:14 Temperature 100.8 F H Pulse Rate 111 H 117 H Respiratory Rate 16 16 Blood Pressure 144/94 H Pulse Oximetry 99 98 03/23/18 18:00 03/23/18 20:00 03/23/18 20:23 Temperature 96.6 F L Pulse Rate 117 H 111 H 113 H Respiratory Rate 17 16 Blood Pressure 128/90 Pulse Oximetry 100 03/23/18 20:26 03/23/18 22:00 03/24/18 00:00 Temperature 98.6 F Pulse Rate 104 H 107 H Respiratory Rate 20 16 Blood Pressure 129/82 Pulse Oximetry 100 100 03/24/18 00:57 03/24/18 02:00 03/24/18 03:19 Temperature Pulse Rate 110 H 110 H 116 H Respiratory Rate 16 16 Blood Pressure Pulse Oximetry 100 100 03/24/18 04:00 03/24/18 06:00 03/24/18 07:41 Temperature 99.5 F Pulse Rate 120 H 126 H 125 H Respiratory Rate 16 16 Blood Pressure 108/67 Pulse Oximetry 100 100 03/24/18 11:09 Temperature Pulse Rate 107 H Respiratory Rate 18 Blood Pressure Pulse Oximetry Intake & Output 03/23/18 03/24/18 03/24/18 18:59 06:59 18:59 Intake Total 100 / 100 2000 / 2000 Output Total 1700 / 1700 1700 / 1700 Balance -1600 / -1600 300 / 300 Weight 75.1 kg Intake: IV 100 / 100 1850 / 1850 D5W/Normal Saline Inj 1,000 ML 1000 / 1000 @ 50 mls/hr IV.CONT .Q20H BRIAN Rx#:[id number] Levaquin 750 mg Premix Inj 150 150 / 150 ML @ 100 mls/hr IV.SIG Q24H BRIAN Rx#:[id number] KCl 40 mEq Premix Inj 40 meq In 100 / 100 200 / 200 100 ml @ 25 mls/hr IV.SIG UNSCH PRN Rx#:[id number] Vancomycin Inj 1,000 MG In NS 500 / 500 Inj 250 ML @ 250 mls/hr IV.SIG Q12H BRIAN Rx#:[id number] Tube Feeding 0 / 0 Water Bolus Amount 150 / 150 Output: Urine Amount (Catheter) 1700 / 1700 1700 / 1700 Straight 1700 / 1700 1700 / 1700 Other: Date of Last Bowel Movement 03/23/18 03/24/18 03/24/18 # Bowel Movements 5 # Incontinent Bowel Movements 4 Narrative: GENERAL: Intubated, sedated HEAD: Normocephalic. Atraumatic. EYES: Pupils equal round and reactive to light bilaterally. No scleral icterus. ENT: orotracheal tube in place NECK: Trachea midline. CHEST: Ventilated. No respiratory distress. CARDIOVASCULAR: Regular rate and rhythm. ABDOMEN: soft EXTREMITIES: No cyanosis or edema. SKIN: Warm, dry, nonjaundiced. Results - Labs 04/01/18 04:11 04/01/18 04:11 Abnormal lab results 03/23/18 03/23/18 03/23/18 Range/Units 16:15 23:26 23:53 RBC (4.00-5.30) mil/mm3 Hgb (11.6-15.3) gm/dL Hct (35.0-46.0) % Plt Count (150-450) th/mm3 Neut % (Auto) (16.0-70.0) % PT (9.8-11.6) sec Chloride 115 H (98-107) meq/L BUN (7-18) mg/dL Creatinine 0.16 L (0.50-1.00) mg/dL POC Glucose 65 L 120 H (68-110) mg/dl Random Glucose 239 H D (74-106) mg/dL Calcium 6.5 L* (8.5-10.1) mg/dL Prot Corrected Calcium 7.6 L (8.5-10.1) mg/dL Phosphorus (2.5-4.9) mg/dL Total Protein 4.8 L (6.4-8.2) g/dL 03/24/18 03/24/18 03/24/18 Range/Units 03:30 03:30 03:30 RBC 3.26 L (4.00-5.30) mil/mm3 Hgb 9.9 L (11.6-15.3) gm/dL Hct 29.4 L (35.0-46.0) % Plt Count 141 L (150-450) th/mm3 Neut % (Auto) 75.6 H (16.0-70.0) % PT 12.1 H (9.8-11.6) sec Chloride 112 H (98-107) meq/L BUN 6 L (7-18) mg/dL Creatinine Less than 0.15 L (0.50-1.00) mg/dL POC Glucose (68-110) mg/dl Random Glucose (74-106) mg/dL Calcium 7.2 L* (8.5-10.1) mg/dL Prot Corrected Calcium (8.5-10.1) mg/dL Phosphorus 2.1 L (2.5-4.9) mg/dL Total Protein 4.7 L (6.4-8.2) g/dL Diabetes panel 03/23/18 03/24/18 Range/Units 16:15 03:30 Sodium 145 143 (136-145) meq/L Potassium 3.5 3.8 (3.5-5.1) meq/L Chloride 115 H 112 H (98-107) meq/L Carbon Dioxide 25.4 21.5 (21.0-32.0) meq/L BUN 7 6 L (7-18) mg/dL Creatinine 0.16 L Less than 0.15 L (0.50-1.00) mg/dL Calcium 6.5 L* 7.2 L* (8.5-10.1) mg/dL Total Protein 4.8 L 4.7 L (6.4-8.2) g/dL Calcium panel 03/23/18 03/24/18 Range/Units 16:15 03:30 Calcium 6.5 L* 7.2 L* (8.5-10.1) mg/dL Phosphorus 2.1 L (2.5-4.9) mg/dL Pituitary panel 03/23/18 03/24/18 Range/Units 16:15 03:30 Sodium 145 143 (136-145) meq/L Potassium 3.5 3.8 (3.5-5.1) meq/L Chloride 115 H 112 H (98-107) meq/L Carbon Dioxide 25.4 21.5 (21.0-32.0) meq/L BUN 7 6 L (7-18) mg/dL Creatinine 0.16 L Less than 0.15 L (0.50-1.00) mg/dL Calcium 6.5 L* 7.2 L* (8.5-10.1) mg/dL Adrenal panel 03/23/18 03/24/18 Range/Units 16:15 03:30 Sodium 145 143 (136-145) meq/L Potassium 3.5 3.8 (3.5-5.1) meq/L Chloride 115 H 112 H (98-107) meq/L Carbon Dioxide 25.4 21.5 (21.0-32.0) meq/L BUN 7 6 L (7-18) mg/dL Creatinine 0.16 L Less than 0.15 L (0.50-1.00) mg/dL Calcium 6.5 L* 7.2 L* (8.5-10.1) mg/dL Total Protein 4.8 L 4.7 L (6.4-8.2) g/dL All other labs normal. Assessment and Plan - Assessment (1) Respiratory failure Code(s): J96.90 - Respiratory failure, unspecified, unspecified whether with hypoxia or hypercapnia Status: Acute - Plan Proceed with bedside percutaneous bronchoscopic guided tracheostomy.
--- NOTE | 2018-03-24 13:19 | P.OP ---
- Preoperative Diagnosis (1) Respiratory failure - Postoperative Diagnosis (1) Respiratory failure Date of procedure: 04/01/18 Procedure: Percutaneous bronchoscopic guided tracheostomy Anesthesia: MAC Surgeon: Sammy Serrano MD Director Of Player Personnel: Gus Suazo Estimated blood loss (mL): 10 Pathology: none sent Operation and Findings: EBL: 5 cc Procedure in detail: The patient remained in his intensive care unit bed. He was placed in supine position with the neck slightly hyperextended. The patient was administered sedative and paralytic medications per intensive care. The anterior neck was prepped and draped in usual sterile fashion. A 1 cm incision was made about 1 fingerbreadth superior to the sternal notch. Minimal blunt dissection was carried out. The bronchoscope was inserted down the endotracheal tube which was withdrawn past the site of the anticipated entry into the trachea. The large-bore needle and catheter were inserted through the anterior trachea and there was air aspirated into the syringe. The wire fed easily and this was also visualized via the bronchoscope. The tract was then serially dilated with the punch dilator and the Blue Rhino dilator. The Shiley #8 tracheostomy tube with guide was placed over the wire and easily entered the trachea. This was also visualized bronchoscopically. The bronchoscope was inserted down the trach tube and the position again confirmed. The cuff was inflated and the apparatus switched to the trach tube. There was adequate tidal volumes. The trach was sutured in place with 4 separate 2-0 Prolene sutures. A dressing and trach collar was applied. The patient tolerated procedure well and remained in his intensive care unit bed.
--- NOTE | 2018-03-24 13:36 | P.PCN ---
Date of procedure: 03/24/18 Pre-op diagnosis: Vent dependent respiratory failure Post-op diagnosis: same Procedure: DATE: 04/01/2018 Bronchoscopy/diagnostic and therapeutic INDICATION: Ventilator dependent respiratory failure CONSENT Informed consent for procedure was obtained from patient's family. DESCRIPTION OF THE PROCEDURE The patient was placed in supine position. The skin was cleansed with Chloraprep. Please see Dr. Serrano's note for tracheostomy portion. Patient was on PRVC 16/500/1/5/100 percent. Patient received 6 mg midazolam and 100 mg of fentanyl IV. 50 mg rocuronium for paralytic agent. The ET tube was entered/ 8.0 and retracted to 17 cm. Direct physician Angiocath into the trachea without complication. 8.0 Shiley percutaneous tracheostomy was placed without complication. Post procedure, entered the 8.0 ET tube and examined. The raz was sharp. Thick mucus was noted to left and left main bronchus. This was suctioned until cleared. I examined the right upper, middle and lower lobes. Because of normal. No mass. 30 cc sterile saline to the right lower lobe with washings sent for cultures Via Lukens trap. Scope was retracted to the raz. The left main bronchus was cleared. The lingula was examined and suction of thick whitish mucus secretions until clear. Left lower lobe without masses/normal mucosa. ESTIMATED BLOOD LOSS: Minimal COMPLICATIONS: No apparent complications. STAT chest x-ray pending at time of dictation
--- NOTE | 2018-03-24 14:21 | P.PNGI ---
Subjective Interval history: Patient remains on ventilator support status post procedure tracheotomy today Status post EGD with PEG tube placement on 03/23/2018 Nonresponsive Hemoglobin 9.9, PT/INR 1.2 <Mica Monsalve - Last Filed: 03/24/18 14:10> Physical Exam Vital signs: Vital Signs 03/23/18 16:00 03/23/18 16:14 03/23/18 18:00 Temperature 100.8 F H Pulse Rate 117 H 117 H Respiratory Rate 16 16 Blood Pressure 144/94 H Pulse Oximetry 99 98 03/23/18 20:00 03/23/18 20:23 03/23/18 20:26 Temperature 96.6 F L Pulse Rate 111 H 113 H Respiratory Rate 17 16 20 Blood Pressure 128/90 Pulse Oximetry 100 100 03/23/18 22:00 03/24/18 00:00 03/24/18 00:57 Temperature 98.6 F Pulse Rate 104 H 107 H 110 H Respiratory Rate 16 16 Blood Pressure 129/82 Pulse Oximetry 100 100 03/24/18 02:00 03/24/18 03:19 03/24/18 04:00 Temperature 99.5 F Pulse Rate 110 H 116 H 120 H Respiratory Rate 16 16 Blood Pressure 108/67 Pulse Oximetry 100 100 03/24/18 06:00 03/24/18 07:41 03/24/18 11:09 Temperature Pulse Rate 126 H 125 H 107 H Respiratory Rate 16 18 Blood Pressure Pulse Oximetry 100 03/24/18 12:50 Temperature Pulse Rate Respiratory Rate Blood Pressure Pulse Oximetry 100 Intake & Output 03/23/18 03/24/18 03/24/18 18:59 06:59 18:59 Intake Total 100 / 100 2000 / 2000 Output Total 1700 / 1700 1700 / 1700 Balance -1600 / -1600 300 / 300 Weight 75.1 kg Intake: IV 100 / 100 1850 / 1850 D5W/Normal Saline Inj 1,000 ML 1000 / 1000 @ 50 mls/hr IV.CONT .Q20H [facility] Rx#:[id number] Levaquin 750 mg Premix Inj 150 150 / 150 ML @ 100 mls/hr IV.SIG Q24H [facility] Rx#:[id number] KCl 40 mEq Premix Inj 40 meq In 100 / 100 200 / 200 100 ml @ 25 mls/hr IV.SIG UNSCH PRN Rx#:[id number] Vancomycin Inj 1,000 MG In NS 500 / 500 Inj 250 ML @ 250 mls/hr IV.SIG Q12H [facility] Rx#:[id number] Tube Feeding 0 / 0 Water Bolus Amount 150 / 150 Output: Urine Amount (Catheter) 1700 / 1700 1700 / 1700 Straight 1700 / 1700 1700 / 1700 Other: Date of Last Bowel Movement 03/23/18 03/24/18 03/24/18 # Bowel Movements 5 # Incontinent Bowel Movements 4 - Constitutional thin, chronically ill appearing - Routine HEENT Exam Head: Present: normocephalic, atraumatic ENT: Present: mucous membranes moist (New tracheostomy today) - Routine Respiratory Exam Present: CTA bilaterally (Ventilator support mild rhonchi) - Routine Cardiovascular Exam Present: RRR, tachycardia (Heart rate 109) - Routine Abdominal Exam Present: soft (Round, mild soft bowel sounds, new gastrostomy tube within the past 24 hours) - Routine Skin Exam Present: pallor - Urinary Catheter Management Straight Cath placed during this visit: yes, but has since been removed by the nurse Reason for continuing: Not indwelling catheter Insertion date: 03/08/18 Insertion time: 07:00 Removal date: 03/08/18 Removal time: 18:18 Indwelling Urethral Catheter Cath placed during this visit: yes, but has since been removed by the nurse Reason for continuing: Continue criteria not met Insertion date: 03/22/18 Insertion time: 15:30 Removal date: 03/21/18 Removal time: 23:30 Indwelling Temp Sensing Catheter Cath placed during this visit: no <Mica Monsalve - Last Filed: 03/24/18 14:10> Vital signs: Vital Signs 03/23/18 18:00 03/23/18 20:00 03/23/18 20:23 Temperature 96.6 F L Pulse Rate 117 H 111 H 113 H Respiratory Rate 17 16 Blood Pressure 128/90 Pulse Oximetry 100 03/23/18 20:26 03/23/18 22:00 03/24/18 00:00 Temperature 98.6 F Pulse Rate 104 H 107 H Respiratory Rate 20 16 Blood Pressure 129/82 Pulse Oximetry 100 100 03/24/18 00:57 03/24/18 02:00 03/24/18 03:19 Temperature Pulse Rate 110 H 110 H 116 H Respiratory Rate 16 16 Blood Pressure Pulse Oximetry 100 100 03/24/18 04:00 03/24/18 06:00 03/24/18 07:41 Temperature 99.5 F Pulse Rate 120 H 126 H 125 H Respiratory Rate 16 16 Blood Pressure 108/67 Pulse Oximetry 100 100 03/24/18 08:00 03/24/18 10:00 03/24/18 11:09 Temperature Pulse Rate 125 H 104 H 107 H Respiratory Rate 18 Blood Pressure Pulse Oximetry 03/24/18 12:00 03/24/18 12:50 03/24/18 12:58 Temperature Pulse Rate 109 H Respiratory Rate Blood Pressure 131/78 Pulse Oximetry 100 03/24/18 13:00 03/24/18 13:03 03/24/18 13:05 Temperature Pulse Rate 110 H 109 H 109 H Respiratory Rate 16 16 23 Blood Pressure 110/62 95/54 L 98/65 L Pulse Oximetry 100 100 99 03/24/18 13:07 03/24/18 13:10 03/24/18 13:13 Temperature Pulse Rate 109 H 108 H 109 H Respiratory Rate 23 18 20 Blood Pressure 106/66 111/64 104/60 Pulse Oximetry 100 100 100 03/24/18 13:15 03/24/18 13:17 03/24/18 13:20 Temperature Pulse Rate 109 H 110 H 109 H Respiratory Rate 18 17 28 H Blood Pressure 103/62 107/63 111/61 Pulse Oximetry 100 100 100 03/24/18 13:22 03/24/18 13:25 03/24/18 13:28 Temperature Pulse Rate 109 H 109 H 109 H Respiratory Rate 16 16 16 Blood Pressure 109/58 L 108/60 111/65 Pulse Oximetry 100 100 100 03/24/18 13:30 03/24/18 13:33 03/24/18 13:35 Temperature Pulse Rate 109 H 109 H 109 H Respiratory Rate 16 16 17 Blood Pressure 111/63 117/68 115/65 Pulse Oximetry 100 100 100 03/24/18 13:38 03/24/18 13:40 03/24/18 14:00 Temperature Pulse Rate 109 H 109 H 110 H Respiratory Rate 16 16 19 Blood Pressure 119/73 118/70 Pulse Oximetry 100 100 100 03/24/18 14:02 03/24/18 14:05 03/24/18 14:30 Temperature Pulse Rate 111 H 111 H 110 H Respiratory Rate 16 25 H 16 Blood Pressure 164/123 H 140/66 133/75 Pulse Oximetry 100 99 100 03/24/18 15:00 03/24/18 15:30 03/24/18 15:40 Temperature Pulse Rate 109 H 110 H 112 H Respiratory Rate 16 16 16 Blood Pressure 124/77 158/101 H Pulse Oximetry 100 100 100 03/24/18 16:00 03/24/18 16:30 Temperature Pulse Rate 115 H 116 H Respiratory Rate 16 16 Blood Pressure 139/67 119/78 Pulse Oximetry 100 100 Intake & Output 03/23/18 03/24/18 03/24/18 18:59 06:59 18:59 Intake Total 100 / 100 2000 / 2000 1000 / 1000 Output Total 1700 / 1700 1700 / 1700 Balance -1600 / -1600 300 / 300 1000 / 1000 Weight 75.1 kg Intake: IV 100 / 100 1850 / 1850 1000 / 1000 D5W/Normal Saline Inj 1,000 ML 1000 / 1000 @ 50 mls/hr IV.CONT .Q20H [facility] Rx#:[id number] D5W/1/2NS + KCL 20 mEq Inj 1, 1000 / 1000 000 ML @ 50 mls/hr IV.CONT . Q20H [facility] Rx#:[id number] Levaquin 750 mg Premix Inj 150 150 / 150 ML @ 100 mls/hr IV.SIG Q24H [facility] Rx#:[id number] KCl 40 mEq Premix Inj 40 meq In 100 / 100 200 / 200 100 ml @ 25 mls/hr IV.SIG UNSCH PRN Rx#:[id number] Vancomycin Inj 1,000 MG In NS 500 / 500 Inj 250 ML @ 250 mls/hr IV.SIG Q12H [facility] Rx#:[id number] Tube Feeding 0 / 0 Water Bolus Amount 150 / 150 Output: Urine Amount (Catheter) 1700 / 1700 1700 / 1700 Straight 1700 / 1700 1700 / 1700 Other: Date of Last Bowel Movement 03/23/18 03/24/18 03/24/18 # Bowel Movements 5 # Incontinent Bowel Movements 4 - Urinary Catheter Management Straight Cath placed during this visit: no Indwelling Urethral Catheter Cath placed during this visit: no Indwelling Temp Sensing Catheter Cath placed during this visit: no <Gume Sutton E - Last Filed: 03/24/18 17:25> Results - Labs CBC & Chem 7: 03/24/18 03:30 03/24/18 03:30 Laboratory Results - last 24 hr 03/23/18 03/23/18 03/23/18 16:15 17:41 23:26 WBC RBC Hgb Hct MCV MCH MCHC RDW Plt Count MPV Neut % (Auto) Lymph % (Auto) Pike % (Auto) Eos % (Auto) Baso % (Auto) Neut # (Auto) Lymph # (Auto) Pike # (Auto) Eos # (Auto) Baso # (Auto) WBC Differential Differential Comment PT INR APTT Sodium 145 Potassium 3.5 Chloride 115 H Carbon Dioxide 25.4 Anion Gap 5 BUN 7 Creatinine 0.16 L Estimated GFR Greater than 89 POC Glucose 82 65 L Random Glucose 239 H D Calcium 6.5 L* Prot Corrected Calcium 7.6 L Phosphorus Magnesium 1.8 Total Protein 4.8 L 03/23/18 03/24/18 03/24/18 23:53 03:30 03:30 WBC 7.7 RBC 3.26 L Hgb 9.9 L Hct 29.4 L MCV 90.3 MCH 30.3 MCHC 33.6 RDW 16.4 Plt Count 141 L MPV 8.2 Neut % (Auto) 75.6 H Lymph % (Auto) 18.4 Pike % (Auto) 5.5 Eos % (Auto) 0.3 Baso % (Auto) 0.2 Neut # (Auto) 5.8 Lymph # (Auto) 1.4 Pike # (Auto) 0.4 Eos # (Auto) 0.0 Baso # (Auto) 0.0 WBC Differential . Differential Comment Auto diff final PT 12.1 H INR 1.2 APTT 28.0 Sodium Potassium Chloride Carbon Dioxide Anion Gap BUN Creatinine Estimated GFR POC Glucose 120 H Random Glucose Calcium Prot Corrected Calcium Phosphorus Magnesium Total Protein 03/24/18 03/24/18 03:30 05:07 WBC RBC Hgb Hct MCV MCH MCHC RDW Plt Count MPV Neut % (Auto) Lymph % (Auto) Pike % (Auto) Eos % (Auto) Baso % (Auto) Neut # (Auto) Lymph # (Auto) Pike # (Auto) Eos # (Auto) Baso # (Auto) WBC Differential Differential Comment PT INR APTT Sodium 143 Potassium 3.8 Chloride 112 H Carbon Dioxide 21.5 Anion Gap 10 BUN 6 L Creatinine Less than 0.15 L Estimated GFR Greater than 89 POC Glucose 87 Random Glucose 83 D Calcium 7.2 L* Prot Corrected Calcium 8.5 D Phosphorus 2.1 L Magnesium 1.9 Total Protein 4.7 L - Imaging Impressions Chest X-Ray 03/24/18 06:00 CONCLUSION: No significant change bilateral parenchymal opacities and small pleural effusions. Endotracheal tube tip is close to the raz. Nasogastric tube has been removed <Mica Monsalve - Last Filed: 03/24/18 14:10> - Labs CBC & Chem 7: 03/24/18 03:30 03/24/18 03:30 Laboratory Results - last 24 hr 03/23/18 03/23/18 03/23/18 16:15 17:41 23:26 WBC RBC Hgb Hct MCV MCH MCHC RDW Plt Count MPV Neut % (Auto) Lymph % (Auto) Pike % (Auto) Eos % (Auto) Baso % (Auto) Neut # (Auto) Lymph # (Auto) Pike # (Auto) Eos # (Auto) Baso # (Auto) WBC Differential Differential Comment PT INR APTT Sodium Potassium Chloride Carbon Dioxide Anion Gap BUN Creatinine Estimated GFR POC Glucose 82 65 L Random Glucose Calcium Prot Corrected Calcium 7.6 L Phosphorus Magnesium Total Protein 4.8 L 03/23/18 03/24/18 03/24/18 23:53 03:30 03:30 WBC 7.7 RBC 3.26 L Hgb 9.9 L Hct 29.4 L MCV 90.3 MCH 30.3 MCHC 33.6 RDW 16.4 Plt Count 141 L MPV 8.2 Neut % (Auto) 75.6 H Lymph % (Auto) 18.4 Pike % (Auto) 5.5 Eos % (Auto) 0.3 Baso % (Auto) 0.2 Neut # (Auto) 5.8 Lymph # (Auto) 1.4 Pike # (Auto) 0.4 Eos # (Auto) 0.0 Baso # (Auto) 0.0 WBC Differential . Differential Comment Auto diff final PT 12.1 H INR 1.2 APTT 28.0 Sodium Potassium Chloride Carbon Dioxide Anion Gap BUN Creatinine Estimated GFR POC Glucose 120 H Random Glucose Calcium Prot Corrected Calcium Phosphorus Magnesium Total Protein 03/24/18 03/24/18 03/24/18 03:30 05:07 15:07 WBC RBC Hgb Hct MCV MCH MCHC RDW Plt Count MPV Neut % (Auto) Lymph % (Auto) Pike % (Auto) Eos % (Auto) Baso % (Auto) Neut # (Auto) Lymph # (Auto) Pike # (Auto) Eos # (Auto) Baso # (Auto) WBC Differential Differential Comment PT INR APTT Sodium 143 Potassium 3.8 Chloride 112 H Carbon Dioxide 21.5 Anion Gap 10 BUN 6 L Creatinine Less than 0.15 L Estimated GFR Greater than 89 POC Glucose 87 87 Random Glucose 83 D Calcium 7.2 L* Prot Corrected Calcium 8.5 D Phosphorus 2.1 L Magnesium 1.9 Total Protein 4.7 L - Imaging Impressions Chest X-Ray 03/24/18 06:00 CONCLUSION: No significant change bilateral parenchymal opacities and small pleural effusions. Endotracheal tube tip is close to the raz. Nasogastric tube has been removed Chest X-Ray 03/24/18 13:36 CONCLUSION: Placement of tracheostomy tube otherwise not significantly changed. 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 Day 17 on the vent. She was extubated on 03/11 but a few hours after was reintubated and has not been able to be weaned off the vent. Pt is not on sedation, she is awake and following commands. Our service has been consulted for PEG placement. Surgery planning for tracheostomy tomorrow. Pts son and daughter at bedside. 03/24/2018 patient was reevaluated after having EGD with PEG tube placement on . Patient had no complications. Findings include normal EGD and successful PEG tube placement. Okay for feedings which have been evaluated per nutritional team, patient is status post tracheostomy today. Currently feedings are off but will be restarted in 4 hours. Patient remains on ventilator support and nonresponsive. We appreciate the consult and please call GI if needed, otherwise we will sign off. Plan: Diet currently n.p.o. status post tracheostomy After 4 hours Glucerna will be started back trickle feed until reach goal rate at 50 cc an hour, okay for medications Flush tube with 50 cc of water every 4-6 hours, and flush after medications or feedings Abdominal binder if necessary for tube safety Change dressing around PEG tube site daily and as needed GI will sign off but please call if needed Patient was seen per myself and Dr. Sutton, note was written on his behalf <Mica Monsalve - Last Filed: 03/24/18 14:10> (1) Dysphagia Status: Acute Code(s): R13.10 - Dysphagia, unspecified - Attending Attestation Patient seen and examined Agree with above Continue with current supportive care Monitor labs Patient cleared for PEG tube feeding We will sign off <Gume Sutton - Last Filed: 03/24/18 17:25>
[2018-03-24] MEDS: KCL 20 mEq/D5W/NaCl 0.45% Inj 1,000 ML IV.CONT SCH (14:39)
[2018-03-24] MEDS: Collagenase Oint 30 GM Tube TOPICAL SCH (14:40)
--- NOTE | 2018-03-24 14:44 | P.PNPAL ---
Reason for Visit Reason for visit: a. To assist with evaluation and management of symptoms including: dyspnea; generalized weakness; pain b. To assist medical decision maker(s) with: better understanding of current medical conditions; weighing benefits/burdens of medical treatment options; making medical treatment decisions. . Subjective Subjective/Interval History: No significant events overnight. Patient opens eyes briefly for me but was sedated earlier for tracheostomy and unable to communicate. Primary nurse reports patient was able to follow some simple commands earlier but was clearly not able to engage in a goals of care conversation. PEG was placed 03/23/18 w/o complication. Trach/bronchoscopy performed today without complication. Pain assessment from nursing staff using non-verbal assessment tool have mostly been #4-6. Tramadol has been used for pain and she received two doses of 50 mg on 03/23 and one dose so far today. . Family/Friend Interactions: No interactions with family/friends today. . Advance Directives Living Will: Never completed Health Care Surrogate: Never completed Durable Power of Truck Terminal Manager: Never completed Health Care Surrogate Name and Number: No written designation of health care surrogate Documented care wishes:: No written documentation of health care preferences/wishes. . Objective Vital Signs: Vital Signs 03/23/18 16:00 03/23/18 16:14 03/23/18 18:00 Temperature 100.8 F H Pulse Rate 117 H 117 H Respiratory Rate 16 16 Blood Pressure 144/94 H Pulse Oximetry 99 98 03/23/18 20:00 03/23/18 20:23 03/23/18 20:26 Temperature 96.6 F L Pulse Rate 111 H 113 H Respiratory Rate 17 16 20 Blood Pressure 128/90 Pulse Oximetry 100 100 03/23/18 22:00 03/24/18 00:00 03/24/18 00:57 Temperature 98.6 F Pulse Rate 104 H 107 H 110 H Respiratory Rate 16 16 Blood Pressure 129/82 Pulse Oximetry 100 100 03/24/18 02:00 03/24/18 03:19 03/24/18 04:00 Temperature 99.5 F Pulse Rate 110 H 116 H 120 H Respiratory Rate 16 16 Blood Pressure 108/67 Pulse Oximetry 100 100 03/24/18 06:00 03/24/18 07:41 03/24/18 11:09 Temperature Pulse Rate 126 H 125 H 107 H Respiratory Rate 16 18 Blood Pressure Pulse Oximetry 100 03/24/18 12:50 Temperature Pulse Rate Respiratory Rate Blood Pressure Pulse Oximetry 100 Intake & Output 03/23/18 03/24/18 03/24/18 18:59 06:59 18:59 Intake Total 100 / 100 2000 / 2000 Output Total 1700 / 1700 1700 / 1700 Balance -1600 / -1600 300 / 300 Weight 75.1 kg Intake: IV 100 / 100 1850 / 1850 D5W/Normal Saline Inj 1,000 ML 1000 / 1000 @ 50 mls/hr IV.CONT .Q20H KARINA Rx#:[id number] Levaquin 750 mg Premix Inj 150 150 / 150 ML @ 100 mls/hr IV.SIG Q24H KARINA Rx#:[id number] KCl 40 mEq Premix Inj 40 meq In 100 / 100 200 / 200 100 ml @ 25 mls/hr IV.SIG UNSCH PRN Rx#:[id number] Vancomycin Inj 1,000 MG In NS 500 / 500 Inj 250 ML @ 250 mls/hr IV.SIG Q12H KARINA Rx#:[id number] Tube Feeding 0 / 0 Water Bolus Amount 150 / 150 Output: Urine Amount (Catheter) 1700 / 1700 1700 / 1700 Straight 1700 / 1700 1700 / 1700 Other: Date of Last Bowel Movement 03/23/18 03/24/18 03/24/18 # Bowel Movements 5 # Incontinent Bowel Movements 4 Physical Exam: CONSTITUTIONAL/GENERAL: Thin, frail-appearing, weak appearing, lethargic, mechanically ventilated in a MICU bed. No obvious distress. Generalized edema. TUBES/LINES/DRAINS: Right subclavian line; peripheral IVs; soft wrist restraints; Coleman catheter. Tracheostomy SKIN: No jaundice, rashes, or lesions. Generalized edema in the extremities. No wounds seen anteriorly. Skin temperature appropriate. Not diaphoretic. NECK: Tracheostomy. CARDIOVASCULAR: Regular rate and rhythm without murmur. No JVD. Peripheral pulses weak.+ Significant generalized edema. RESPIRATORY/CHEST: Symmetric, unlabored respirations. Breath sounds equal bilaterally. Lungs are clear, diminished. GASTROINTESTINAL: Abdomen soft, non-tender, nondistended. No hepato-splenomegaly , or palpable masses. No guarding. Bowel sounds present. GENITOURINARY: Without palpable bladder distension. Coleman catheter in place. MUSCULOSKELETAL: Extremities without clubbing, cyanosis. Significant pitting edema in all extremities. No mottling. NEUROLOGICAL: Sedated. Lethargic. Opens eyes briefly to stimulation. Unable to follow commands at time of my visit. PSYCHIATRIC: Unable to assess due to level of responsiveness. . . Diagnostic Tests Laboratory: Laboratory Results - last 72 hr 03/21/18 03/21/18 03/21/18 17:35 18:18 23:31 WBC RBC Hgb Hct MCV MCH MCHC RDW Plt Count MPV Neut % (Auto) Lymph % (Auto) [place] % (Auto) Eos % (Auto) Baso % (Auto) Neut # (Auto) Lymph # (Auto) [place] # (Auto) Eos # (Auto) Baso # (Auto) WBC Differential Differential Comment PT INR APTT Sodium Potassium 3.9 D Chloride Carbon Dioxide Anion Gap BUN Creatinine Estimated GFR POC Glucose 133 H Random Glucose Calcium Prot Corrected Calcium Phosphorus 3.0 Magnesium Total Bilirubin AST ALT Alkaline Phosphatase Total Protein Albumin Vancomycin Trough Blood Type O Negative Antibody Screen Negative MTS Gel Crossmatch See Detail Bld Prod Order Comment 03/22/18 03/22/18 03/22/18 03:20 05:19 05:45 WBC RBC Hgb 10.7 L D Hct 31.6 L MCV MCH MCHC RDW Plt Count MPV Neut % (Auto) Lymph % (Auto) [place] % (Auto) Eos % (Auto) Baso % (Auto) Neut # (Auto) Lymph # (Auto) [place] # (Auto) Eos # (Auto) Baso # (Auto) WBC Differential Differential Comment PT INR APTT Sodium Potassium Chloride Carbon Dioxide Anion Gap BUN Creatinine Estimated GFR POC Glucose 109 Random Glucose Calcium Prot Corrected Calcium Phosphorus Magnesium Total Bilirubin AST ALT Alkaline Phosphatase Total Protein Albumin Vancomycin Trough 11.2 H Blood Type Antibody Screen MTS Gel Crossmatch Bld Prod Order Comment 03/22/18 03/23/18 03/23/18 23:20 03:30 03:30 WBC 7.7 RBC 3.17 L Hgb 9.8 L Hct 28.5 L MCV 89.9 MCH 30.9 MCHC 34.4 RDW 16.3 Plt Count 137 L D MPV 8.1 Neut % (Auto) 71.6 H Lymph % (Auto) 19.4 [place] % (Auto) 8.4 H Eos % (Auto) 0.3 Baso % (Auto) 0.3 Neut # (Auto) 5.5 Lymph # (Auto) 1.5 [place] # (Auto) 0.6 Eos # (Auto) 0.0 Baso # (Auto) 0.0 WBC Differential . Differential Comment Auto diff final PT INR APTT Sodium 146 H Potassium 2.9 L* D Chloride 113 H Carbon Dioxide 25.6 Anion Gap 7 BUN 10 Creatinine 0.15 L Estimated GFR Greater than 89 POC Glucose 98 Random Glucose 96 Calcium 6.8 L* Prot Corrected Calcium 8.0 L Phosphorus 2.8 Magnesium 1.5 Total Bilirubin 0.4 AST 46 H ALT 21 Alkaline Phosphatase 299 H Total Protein 4.8 L Albumin 0.9 L Vancomycin Trough Blood Type Antibody Screen MTS Gel Crossmatch Bld Prod Order Comment 03/23/18 03/23/18 03/23/18 05:11 12:52 16:15 WBC RBC Hgb Hct MCV MCH MCHC RDW Plt Count MPV Neut % (Auto) Lymph % (Auto) [place] % (Auto) Eos % (Auto) Baso % (Auto) Neut # (Auto) Lymph # (Auto) [place] # (Auto) Eos # (Auto) Baso # (Auto) WBC Differential Differential Comment PT INR APTT Sodium 145 Potassium 3.5 Chloride 115 H Carbon Dioxide 25.4 Anion Gap 5 BUN 7 Creatinine 0.16 L Estimated GFR Greater than 89 POC Glucose 104 83 Random Glucose 239 H D Calcium 6.5 L* Prot Corrected Calcium 7.6 L Phosphorus Magnesium 1.8 Total Bilirubin AST ALT Alkaline Phosphatase Total Protein 4.8 L Albumin Vancomycin Trough Blood Type Antibody Screen MTS Gel Crossmatch Bld Prod Order Comment 03/23/18 03/23/18 03/23/18 17:41 23:26 23:53 WBC RBC Hgb Hct MCV MCH MCHC RDW Plt Count MPV Neut % (Auto) Lymph % (Auto) [place] % (Auto) Eos % (Auto) Baso % (Auto) Neut # (Auto) Lymph # (Auto) [place] # (Auto) Eos # (Auto) Baso # (Auto) WBC Differential Differential Comment PT INR APTT Sodium Potassium Chloride Carbon Dioxide Anion Gap BUN Creatinine Estimated GFR POC Glucose 82 65 L 120 H Random Glucose Calcium Prot Corrected Calcium Phosphorus Magnesium Total Bilirubin AST ALT Alkaline Phosphatase Total Protein Albumin Vancomycin Trough Blood Type Antibody Screen MTS Gel Crossmatch Bld Prod Order Comment 03/24/18 03/24/18 03/24/18 03:30 03:30 03:30 WBC 7.7 RBC 3.26 L Hgb 9.9 L Hct 29.4 L MCV 90.3 MCH 30.3 MCHC 33.6 RDW 16.4 Plt Count 141 L MPV 8.2 Neut % (Auto) 75.6 H Lymph % (Auto) 18.4 [place] % (Auto) 5.5 Eos % (Auto) 0.3 Baso % (Auto) 0.2 Neut # (Auto) 5.8 Lymph # (Auto) 1.4 [place] # (Auto) 0.4 Eos # (Auto) 0.0 Baso # (Auto) 0.0 WBC Differential . Differential Comment Auto diff final PT 12.1 H INR 1.2 APTT 28.0 Sodium 143 Potassium 3.8 Chloride 112 H Carbon Dioxide 21.5 Anion Gap 10 BUN 6 L Creatinine Less than 0.15 L Estimated GFR Greater than 89 POC Glucose Random Glucose 83 D Calcium 7.2 L* Prot Corrected Calcium 8.5 D Phosphorus 2.1 L Magnesium 1.9 Total Bilirubin AST ALT Alkaline Phosphatase Total Protein 4.7 L Albumin Vancomycin Trough Blood Type Antibody Screen MTS Gel Crossmatch Bld Prod Order Comment 03/24/18 05:07 WBC RBC Hgb Hct MCV MCH MCHC RDW Plt Count MPV Neut % (Auto) Lymph % (Auto) [place] % (Auto) Eos % (Auto) Baso % (Auto) Neut # (Auto) Lymph # (Auto) [place] # (Auto) Eos # (Auto) Baso # (Auto) WBC Differential Differential Comment PT INR APTT Sodium Potassium Chloride Carbon Dioxide Anion Gap BUN Creatinine Estimated GFR POC Glucose 87 Random Glucose Calcium Prot Corrected Calcium Phosphorus Magnesium Total Bilirubin AST ALT Alkaline Phosphatase Total Protein Albumin Vancomycin Trough Blood Type Antibody Screen MTS Gel Crossmatch Bld Prod Order Comment Result Diagrams: 03/24/18 03:30 03/24/18 03:30 Microbiology: Microbiology 03/16/18 19:40 Aerobic Blood Culture - Final Blood - Line No growth in 5 days Anaerobic Blood Culture - Final No growth in 5 days 03/16/18 19:45 Aerobic Blood Culture - Final Blood - Line No growth in 5 days Anaerobic Blood Culture - Final No growth in 5 days Imaging: Chest X-Ray 03/07/18 00:00 CONCLUSION: 1. Persistent left lower lobe consolidation and pleural effusion. 2. Interval resolution of diffuse infiltrates in the right lung and reduction in the infiltrates in the left upper lung. Chest X-Ray 03/09/18 08:51 CONCLUSION: 1. Interval removal of left subclavian central line. 2. Stable small left pleural effusion and associated airspace disease in the left lower lobe. 3. Continued improving aeration of the left upper lung zone. 4. Stable mild airspace disease in the right lower lung zone. Chest X-Ray 03/11/18 21:53 CONCLUSION: Basilar airspace disease and pleural effusions similar to March 09. Endotracheal tube tip just above raz. Head CT 03/12/18 06:59 CONCLUSION: 1. No acute intracranial abnormality. 2. Minimal fluid in the mastoid air cells. Chest X-Ray 03/12/18 21:40 CONCLUSION: Placement of a right central line with tip in right atrium. No pneumothorax. Chest X-Ray 03/14/18 06:00 CONCLUSION: 1. No significant interval change. 2. Stable tubes and lines. 3. Stable small bilateral pleural effusions and associated lower lung zone airspace disease. Chest X-Ray 03/15/18 06:00 CONCLUSION: 1. No significant interval change. 2. Stable tubes and lines. 3. Stable bilateral [id number] pleural effusions with associated lower lobe airspace disease. Cervical Spine MRI 03/16/18 00:00 CONCLUSION: 1. Persistent abnormal signal in the cord extending from C4 down to T1. Much of this likely related to edema. The edema appears to extend over a smaller area on the current exam. There is a linear area of increased signal seen on the T1 and T2-weighted images at the left-sided cord at the C7-T1 level which may represent an area of focal hemorrhage within the cord. 2. Status post laminectomy with posterior fusion and hardware placed at the C4- T1 levels. 3. Prevertebral soft tissue swelling. 4. No focal fluid collection to suggest an abscess is seen. Head MRI 03/16/18 00:00 CONCLUSION: 1. There is a new area of nodular enhancement, abnormal FLAIR signal, and mild restricted diffusion at the baeza matter white matter junction in the left occipital lobe. 3 additional small areas of nodular enhancement measuring approximately 3 mm are also identified along the baeza matter surface in the left parietal high convexity. Etiology is nonspecific. Metastatic disease is one consideration but given the history infection is another consideration. Suggest attention to these areas at follow-up imaging. 2. Increased fluid in the mastoid air cells bilaterally. Chest X-Ray 03/17/18 06:00 CONCLUSION: Better aeration of the lungs with bibasilar densities and small pleural effusions. Chest X-Ray 03/19/18 06:00 CONCLUSION: Endotracheal tube tip is engaged in the left mainstem bronchus. Retraction by couple of centimeters recommended. Otherwise stable chest Chest X-Ray 03/20/18 05:51 CONCLUSION: Endotracheal tube tip remains in left mainstem bronchus. This should be withdrawn about 3 cm. Bilateral mostly basilar airspace disease and small pleural effusions. Chest X-Ray 03/20/18 06:00 CONCLUSION: Endotracheal tube tip in left mainstem bronchus. Bilateral mostly basilar airspace disease and effusions similar to March 19. Abdomen X-Ray 03/21/18 00:00 CONCLUSION: Nasogastric or orogastric tube tip in distal stomach. Chest X-Ray 03/23/18 06:00 CONCLUSION: Endotracheal tube tip at raz. NG enters stomach. Right central line in superior vena cava. Bilateral airspace disease and pleural effusions similar to March 20. Chest X-Ray 03/24/18 06:00 CONCLUSION: No significant change bilateral parenchymal opacities and small pleural effusions. Endotracheal tube tip is close to the raz. Nasogastric tube has been removed Procedures: Intubation and mechanical ventilation PEG tube placement 03/23/18 Tracheostomy / Bronchoscopy 03/24/18 Assessment and Plan - Disease Oriented Problem List (1) Pancytopenia (2) Bacteremia (3) Rheumatoid arthritis (4) Subarachnoid hemorrhage (5) Thrombocytopenia (6) Anemia (7) Hypothyroidism (8) Diabetes mellitus (9) Lupus (systemic lupus erythematosus) (10) S/P laminectomy with spinal fusion Comment: for removal of benign tumor at [facility] 02/03/2018. 90% of tumor was removed. - Symptom Scale (1) Pain 0-10 Scale: Unable to quantify (2) Dyspnea 0-10 Scale: Unable to quantify (3) Generalized weakness 0-10 Scale: Unable to quantify Pertinent Non-Medical Issues: Psychosocial: Originally from [place]. Has lived in [place] since age 15 - - initially in [facility], and more recently in [place]. Patient is . Has 2 daughters --Lida lives in [place]; Sylvie lives in [place]. Spiritual: Patient alternates between Catholicism and protestantism. Appreciate bunch breaker visits. Legal: No advance directives. Ethical issues impacting care: Patient has periods of being awake and alert on the ventilator but has still not appeared to be capacitated to make her own health care decisions at least since 03/22/18 . Important Contacts: Teresa Willett (daughter) [phone] Dileep Willett (son in law) [phone] Asher (spouse) Lida (daughter) . Prognosis: Prognostication is challenging in this patient. She apparently began having significant weight loss and progressive generalized weakness dating back to April 2017. She was diagnosed with thyroid problems. There was also blood loss and thrombocytopenia. Patient also has lupus. She did seem to improve initially after her neurosurgery at [facility]. However she is quite debilitated. She seems to have had a new hemorrhage since her surgery. She developed septic shock after just a few days in rehab. It is unclear at this point what her neurologic recovery would look like. It is also unclear what is caused her thrombocytopenia and blood loss. Family reports that doctors at [facility] had wanted both a kidney biopsy and a bone marrow biopsy. The patient certainly has a long, hard, road ahead of her if she chooses aggressive care and due to her level of debility is likely to have complications along the way. . Code Status: Full Code Plan: == Code Status: FULL CODE. Family has opted for aggressive care including trach and PEG and at time of last conversation were wishing for full code status. == Decision Making: Patient has periods of being awake and alert but has not demonstrated the ability during those periods to have insight into her illness and to be able to weigh the benefits/burdens of treatment options. Therefore, she remains incapacitated. Proxy decision making falls to her spouse under [place] Statutes. At this time the spouse is consulting with the 2 daughters and son- in-law to help make medical decisions. == Goals of medical treatment: Family was hoping that patient would be awake and alert enough to make her own decisions. This did not happen. Family opted for a further trial of aggressive treatments including trach/PEG. Remains FULL CODE == Symptoms * Pain: Pain has been in the neck and back. Long history of arthritis pain impacting multiple joints from both lupus and rheumatoid arthritis. Patient also has other probable sources of discomfort including prolonged bedbound status; orotracheal intubation; orogastric intubation; vascular access line; restraints; urinary catheter and now from recent PEG and Trach. Most recent nursing pain scores are in 4-6 range. Needing at least 2 Tramadol 50 mg / day. * Dyspnea: Dyspnea appears adequately controlled by mechanical ventilation. No history of underlying respiratory problems. Possible pneumonia. May have some diaphragmatic weakness from spinal injury impacting her ability to wean off vent. Patient will probably need residential vent management -- will likely end up at LT[facility] if funding available. * Encephalopathy: Has periods of wakefulness, but as noted above, does hot have cognitive abilities at this point to weigh benefits/burdens of treatment options and make her own health care decisions. == Infection: Continues to have low-grade fevers and a significant bandemia. Source is unclear. Neurosurgery and radiology has suggested that current MRI findings may be consistent with infection. 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 Source of this is unclear. Hematology and oncology have recommended a bone marrow biopsy. May want to consider getting this bone marrow biopsy sooner rather than waiting as it might impact prognostication of life expectancy and help family weigh continuing aggressive care vs comfort are. == Lupus: Family reports that the patient had been started on Cellcept for her Lupus while at [facility]. She seemed to respond well to this medication. Also, seemed to be helped by steroids at [facility]. May want to consider. == Palliative care will continue to follow to assist with symptom management and to further clarify goals of medical treatment as the clinical course evolves. Attestation Attestation: To help prompt me to consider important information that might be impacting today's encounter and assessment, information from prior notes written by myself or my colleagues may have been "brought forward" into today's note. My signature on this note, however, is an attestation that I personally performed the exam, history, and/or decision-making noted today, and, unless otherwise indicated, the interactions with patient, family, and staff as well as the review of records all occurred today. I also attest that the listed assessment and stated plan reflect my best clinical judgment today based on the combination of historical information, prior notes, and today's exam/ interactions. When time spent is documented, it refers only to time spent today by the signer, or if indicated, combined time spent today by collaborating physician/nurse practitioner.
--- NOTE | 2018-03-24 14:45 | XR ---
EXAM DATE: 03/24/2018 1:59 PM EDT AGE/SEX: 62 years / Female INDICATIONS: Post bronchoscopy with new percutaneous tracheostomy. SVT. CLINICAL DATA: This is the patient's subsequent encounter. Patient reports that signs and symptoms h ave been present for 3 weeks and indicates a pain score of Nonresponsive. MEDICAL/SURGICAL HISTORY: Cerebrovascular disease. Hypertension. Diabetes. LUPUS . Cervical fusion. COMPARISON: [facility] [place], CHEST 1V SINGLE AP, 03/24/2018. . FINDINGS: There is diffuse haziness to both lung atkinson not significantly changed probable pulmonary edema. Hudson ateral pleural effusions are also suspected. Tracheostomy tube is present in satisfactory position. CONCLUSION: Placement of tracheostomy tube otherwise not significantly changed. Electronically signed by: Patrick Pablo MD 03/24/2018 2:43 PM EDT
--- NOTE | 2018-03-24 15:05 | P.PNID ---
Subjective Remarks: Patient is post tracheostomy and PEG tube insertion. Sedated. Afebrile. Sputum culture had Stenotrophomonas from 03/11/2018. Antibiotics: Vancomycin Levaquin. Past Medical History: Diabetes mellitus, hypertension, hypothyroidism, systemic lupus erythematosus, rheumatoid arthritis, anemia, recent subarachnoid hemorrhage, C6 mass resection, hysterectomy, bladder sling, appendectomy, C4-C7 laminectomy, C4-T1 posterior fusion. Allergies/Adverse Reactions: Allergies codeine Allergy (Intermediate, Verified 01/24/18 17:12) nitroglycerin Adverse Reaction (Severe, Verified 01/25/18 09:14) Nausea/Vomiting Objective Vital Signs 03/23/18 16:00 03/23/18 16:14 03/23/18 18:00 Temperature 100.8 F H Pulse Rate 117 H 117 H Respiratory Rate 16 16 Blood Pressure 144/94 H Pulse Oximetry 99 98 03/23/18 20:00 03/23/18 20:23 03/23/18 20:26 Temperature 96.6 F L Pulse Rate 111 H 113 H Respiratory Rate 17 16 20 Blood Pressure 128/90 Pulse Oximetry 100 100 03/23/18 22:00 03/24/18 00:00 03/24/18 00:57 Temperature 98.6 F Pulse Rate 104 H 107 H 110 H Respiratory Rate 16 16 Blood Pressure 129/82 Pulse Oximetry 100 100 03/24/18 02:00 03/24/18 03:19 03/24/18 04:00 Temperature 99.5 F Pulse Rate 110 H 116 H 120 H Respiratory Rate 16 16 Blood Pressure 108/67 Pulse Oximetry 100 100 03/24/18 06:00 03/24/18 07:41 03/24/18 11:09 Temperature Pulse Rate 126 H 125 H 107 H Respiratory Rate 16 18 Blood Pressure Pulse Oximetry 100 03/24/18 12:50 Temperature Pulse Rate Respiratory Rate Blood Pressure Pulse Oximetry 100 Intake & Output 03/23/18 03/24/18 03/24/18 18:59 06:59 18:59 Intake Total 100 / 100 2000 / 2000 1000 / 1000 Output Total 1700 / 1700 1700 / 1700 Balance -1600 / -1600 300 / 300 1000 / 1000 Weight 75.1 kg Intake: IV 100 / 100 1850 / 1850 1000 / 1000 D5W/Normal Saline Inj 1,000 ML 1000 / 1000 @ 50 mls/hr IV.CONT .Q20H [facility] Rx#:[id number] D5W/1/2NS + KCL 20 mEq Inj 1, 1000 / 1000 000 ML @ 50 mls/hr IV.CONT . Q20H [facility] Rx#:[id number] Levaquin 750 mg Premix Inj 150 150 / 150 ML @ 100 mls/hr IV.SIG Q24H [facility] Rx#:[id number] KCl 40 mEq Premix Inj 40 meq In 100 / 100 200 / 200 100 ml @ 25 mls/hr IV.SIG [facility]NSCH PRN Rx#:[id number] Vancomycin Inj 1,000 MG In NS 500 / 500 Inj 250 ML @ 250 mls/hr IV.SIG Q12H [facility] Rx#:[id number] Tube Feeding 0 / 0 Water Bolus Amount 150 / 150 Output: Urine Amount (Catheter) 1700 / 1700 1700 / 1700 Straight 1700 / 1700 1700 / 1700 Other: Date of Last Bowel Movement 03/23/18 03/24/18 03/24/18 # Bowel Movements 5 # Incontinent Bowel Movements 4 03/16/18 19:40 Blood - Line Aerobic Blood Culture - Final No growth in 5 days 03/16/18 19:40 Blood - Line Anaerobic Blood Culture - Final No growth in 5 days 03/16/18 19:45 Blood - Line Aerobic Blood Culture - Final No growth in 5 days 03/16/18 19:45 Blood - Line Anaerobic Blood Culture - Final No growth in 5 days Lab - Hematology Results 03/23/18 03/24/18 03:30 03:30 WBC 7.7 7.7 RBC 3.17 L 3.26 L Hgb 9.8 L 9.9 L Hct 28.5 L 29.4 L MCV 89.9 90.3 MCH 30.9 30.3 MCHC 34.4 33.6 RDW 16.3 16.4 Plt Count 137 L D 141 L MPV 8.1 8.2 Neut % (Auto) 71.6 H 75.6 H Lymph % (Auto) 19.4 18.4 [place] % (Auto) 8.4 H 5.5 Eos % (Auto) 0.3 0.3 Baso % (Auto) 0.3 0.2 Neut # (Auto) 5.5 5.8 Lymph # (Auto) 1.5 1.4 [place] # (Auto) 0.6 0.4 Eos # (Auto) 0.0 0.0 Baso # (Auto) 0.0 0.0 WBC Differential . . Differential Comment Auto diff final Auto diff final Lab - Chemistry Results 03/22/18 03/23/18 03/23/18 23:20 03:30 05:11 Sodium 146 H Potassium 2.9 L* D Chloride 113 H Carbon Dioxide 25.6 Anion Gap 7 BUN 10 Creatinine 0.15 L Estimated GFR Greater than 89 POC Glucose 98 104 Random Glucose 96 Calcium 6.8 L* Prot Corrected Calcium 8.0 L Phosphorus 2.8 Magnesium 1.5 Total Bilirubin 0.4 AST 46 H ALT 21 Alkaline Phosphatase 299 H Total Protein 4.8 L Albumin 0.9 L 03/23/18 03/23/18 03/23/18 12:52 16:15 17:41 Sodium 145 Potassium 3.5 Chloride 115 H Carbon Dioxide 25.4 Anion Gap 5 BUN 7 Creatinine 0.16 L Estimated GFR Greater than 89 POC Glucose 83 82 Random Glucose 239 H D Calcium 6.5 L* Prot Corrected Calcium 7.6 L Phosphorus Magnesium 1.8 Total Bilirubin AST ALT Alkaline Phosphatase Total Protein 4.8 L Albumin 03/23/18 03/23/18 03/24/18 23:26 23:53 03:30 Sodium 143 Potassium 3.8 Chloride 112 H Carbon Dioxide 21.5 Anion Gap 10 BUN 6 L Creatinine Less than 0.15 L Estimated GFR Greater than 89 POC Glucose 65 L 120 H Random Glucose 83 D Calcium 7.2 L* Prot Corrected Calcium 8.5 D Phosphorus 2.1 L Magnesium 1.9 Total Bilirubin AST ALT Alkaline Phosphatase Total Protein 4.7 L Albumin 03/24/18 05:07 Sodium Potassium Chloride Carbon Dioxide Anion Gap BUN Creatinine Estimated GFR POC Glucose 87 Random Glucose Calcium Prot Corrected Calcium Phosphorus Magnesium Total Bilirubin AST ALT Alkaline Phosphatase Total Protein Albumin Imaging: ITS Impressions Head CT 03/12/18 06:59 CONCLUSION: 1. No acute intracranial abnormality. 2. Minimal fluid in the mastoid air cells. Cervical Spine MRI 03/16/18 00:00 CONCLUSION: 1. Persistent abnormal signal in the cord extending from C4 down to T1. Much of this likely related to edema. The edema appears to extend over a smaller area on the current exam. There is a linear area of increased signal seen on the T1 and T2-weighted images at the left-sided cord at the C7-T1 level which may represent an area of focal hemorrhage within the cord. 2. Status post laminectomy with posterior fusion and hardware placed at the C4- T1 levels. 3. Prevertebral soft tissue swelling. 4. No focal fluid collection to suggest an abscess is seen. Head MRI 03/16/18 00:00 CONCLUSION: 1. There is a new area of nodular enhancement, abnormal FLAIR signal, and mild restricted diffusion at the baeza matter white matter junction in the left occipital lobe. 3 additional small areas of nodular enhancement measuring approximately 3 mm are also identified along the baeza matter surface in the left parietal high convexity. Etiology is nonspecific. Metastatic disease is one consideration but given the history infection is another consideration. Suggest attention to these areas at follow-up imaging. 2. Increased fluid in the mastoid air cells bilaterally. Abdomen X-Ray 03/21/18 00:00 CONCLUSION: Nasogastric or orogastric tube tip in distal stomach. Chest X-Ray 03/24/18 13:36 CONCLUSION: Placement of tracheostomy tube otherwise not significantly changed. Physical Exam: GENERAL: No acute distress. HEENT: Pupils reactive to light. EOMI. No icterus. NECK: Supple. No swelling. LUNGS: Clear decreased breath sounds. HEART: Regular S1 and S2. No murmurs rubs or gallops. ABDOMEN: Soft, nontender. EXTREMITIES: No clubbing or cyanosis. No edema. SKIN: No rash. NEUROLOGIC: Unable to fully assess. PSYCH: Unable to fully assess. Assessment and Plan - Plan IMPRESSION: ESBL E. coli bacteremia. Treated. ESBL E. coli UTI. Pneumonia due to stenotrophomonas. Acute respiratory failure. Status post cervical spine surgery. Brain lesions on MRI. 3 enhancing nodular lesions seen in the left parietal area. Recent subarachnoid hemorrhage. Fever with temperature of 100.8 yesterday. Sputum culture ordered. Recommendations: Continue Levaquin for Stenotrophomonas. Continue vancomycin. Temperature has improved after starting Vanco. She has brain lesion on MRI also, unsure if this may be infection. Monitor sputum culture Monitor progress Monitor temperature.
[2018-03-25] MEDS: Insulin NovoLIN Regular Correctional Sugar Inj SQ SCH ×4 (00:05→18:20)
[2018-03-25] MEDS: Oral Hygiene Kit OROPHARYNG SCH ×4 (00:06→15:30)
[2018-03-25 01:24] LABS: Potassium 3.9 meq/L (3.5-5.1)
[2018-03-25] MEDS: Hypromellose 0.3% Opth Gel 10 GM Bottle EACH EYE SCH ×3 (03:01→20:27)
[2018-03-25] MEDS: Levothyroxine 50 MCG Tablet PO SCH (05:15)
[2018-03-25] MEDS: Vancomycin Inj 1,000 MG in Sodium Chlor 0.9% Inj 250 ML IV.SIG SCH ×2 (05:15→18:12)
[2018-03-25] MEDS: Gabapentin 300 MG Capsule PO SCH ×3 (08:01→18:12)
[2018-03-25] MEDS: Metoprolol Tartrate 25 MG Tablet PO SCH ×2 (08:02→20:28)
[2018-03-25] MEDS: Chlorhexidine 0.12% Oral Kit 15 ML UDC OROPHARYNG SCH ×2 (08:11→20:27)
[2018-03-25] MEDS: Heparin Central Flush 100 UNIT/ML 5 ML Vial IV.FLUSH SCH (08:17)
[2018-03-25] MEDS: KCL 20 mEq/D5W/NaCl 0.45% Inj 1,000 ML IV.CONT SCH (10:12)
--- NOTE | 2018-03-25 15:19 | P.PNCC ---
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 she was sent to [facility] for procedural management of these. She was then transferred to [facility] on 02/28. Please see the dictated hospitalist consult note on 02/28 on admission to [facility] for a detailed record of the hospital course while at [facility]. Today, she was found to be very tachycardic in the 160s and hypotensive with sbp in the 70s. She was emergently transferred to the ICU after rapid response was called for evaluation and management of her hypotension. Of note, she did not have iv access. I met her on arrival to the ICU. I placed 2 18g piv. 12-lead EKG confirms sinus tachycardia. I due to the fast rate, I gave 6mg adenosine to slow it down diagnostically, and it slowed down temporarily to a HR in the 70s, confirming sinus rhythm. I performed bedside critical care echocardiography which demonstrates grossly preserve biventricular function. in particular, RV is decompressed and well-functioning. IVC is completely collapsable. no pericardial effusion. I gave her 3L NS bolus ivf which improved her SBP to 110s and decreased her HR to 110s. She is afebrile. stat CBC shows anemia (history of recent femoral artery pseudoaneurysm), CMP demonstrates elevated AST and Alk phos, elevated lactate at 3.7. Cr elevated above baseline. Patient denies any complaints to me. she is mostly swedish speaking, but communicates in basic Luxembourgish. specifically denies chest pain, shortness of breath, fever/chills, nausea, vomiting, abdominal pain, constipation, diarrhea. I discussed with her family, she has been eating and drinking well even up to today. ROS otherwise negative. 03/02 Patient is awake lying in bed in TRAV. On room air oxygen. T:103.2 this morning She was hypotensive overnight initially placed on Neosyn now off pressor with BP 147/67 with MAP 96. 03/03 No events overnight. Seems more awake and alert this morning. T: 100.2 at midnight. BP and HR better ( 119/58 with MAP 83mmHg). On no pressors. BC from 03/01: E.coli ESBL 6/30: clinically improving. slightly tachycardic. on appropriate therapy for her ESBL e. coli. denies complaints. hemodynamically stable. on room air. 03/05: Patient developed worsening respiratory distress yesterday and required endotracheal intubation and was placed on mechanical ventilation. Hypotension overnight for which patient was started on phenylephrine. Developed A. fib with RVR and was started on amiodarone gtt. 03/06 Patient remains sedated and intubated. Tmax 101.6, On Amio drip. 03/07 Patient remains intubated off sedation. s/p transfusion 2u PRBC yesterday. Tolerating tube feeds. Afebrile. Off Amio drip. 03/08 Patient remains intubated. T:100.9 last night. 03/09 No events overnight. Tolerated CPAP for approx 4 hrs yesterday. Off sedation. Afebrile. 03/10 No events overnight T:100.1 at 4am, Awake, patient was on CPAP for short time yesterday and placed back on PRVC mode for low TV and tachycardia. 03/11 No events overnight. Tolerated CPAP x 4hrs yesterday. T:100.6 yesterday. On no sedation. 03/12 Patient was extubated yesterday reintubated last night for resp distress and AMS. Afebrile. On Diprivan infusion for sedation. 03/13: Remains intubated critical, remains encephalopathy unresponsive off sedation. Afebrile EEG showed significant encephalopathy no seizures. Right subclavian central line placed, remains on Luis-Synephrine to keep map above 65 03/14: Remains encephalopathy again unresponsive. Eyes are open but no tracking did not follow commands. Remains leukopenic. Weaned off Luis-Synephrine. Not tolerating CPAP due to low tidal volume 03/15: Continues to fail CPAP due to low tidal volume. IV Levaquin added yesterday by ID for stenotrophomonas in the sputum. Remains encephalopathic did not follow commands but eyes are spontaneously open. I have requested neurology consult today 03/16: T-max 100.1. Currently 99. EEG has been performed. Does not follow commands. Tube feeds at 30 cc an hour. Positive BM. 03/17 Patient remains intubated on Precedex drip but awake. 03/18 T-current 100.7. Tolerating tube feeds at goal. Arousable the ventilator and follows command. Left side is chronically weaker. Discussed with Dr. Gutierrez /neurology. Reviewed MRI brain. Recommended evaluation by neurosurgery for abnormal MRI C-spine. Patient's CT surgeon at [facility] is Dr. Ku 03/19: T-max 100.7. Currently 99. Tachycardic. Tolerated CPAP trial. On the ventilator currently. Positive BM yesterday. 03/20 Patient was on Diprivan and Precedex drip overnight now off sedation. Afebrile. 03/21: no improvements. has been intubated for 17 days, and failed extubation quickly 03/12. needs trach and peg for further progress. 03/22: Afebrile. Intubation day #18. Patient currently contemplating trach and PEG options. Currently off dexmedetomidine drip. 03/23: Afebrile. Plan for PEG tube today. Awake and alert and interactive on the ventilator. Tube feeds are currently off. 03/24: Afebrile. Status post PEG tube by Dr. Orellana 03/23. Plan for percutaneous tracheostomy Dr. Serrano at 10 AM today 03/24. Tachycardic. Will replace phosphorus and magnesium this a.m. Subjective 03/25: Status post tracheostomy 03/[address] Serrano. Currently on PSV trial. No new issues overnight. Tube feeds at goal. Objective Vital Signs / I&O: Vital Signs 03/24/18 15:30 03/24/18 15:40 03/24/18 16:00 Temperature Pulse Rate 110 H 112 H 115 H Respiratory Rate 16 16 16 Blood Pressure 158/101 H 139/67 Pulse Oximetry 100 100 100 03/24/18 16:30 03/24/18 18:00 03/24/18 20:00 Temperature 99.5 F Pulse Rate 116 H 120 H 121 H Respiratory Rate 16 16 Blood Pressure 119/78 114/74 Pulse Oximetry 100 100 03/24/18 20:33 03/24/18 22:00 03/25/18 00:00 Temperature 98.3 F Pulse Rate 118 H 103 H 104 H Respiratory Rate 16 16 Blood Pressure 118/82 Pulse Oximetry 100 100 03/25/18 02:00 03/25/18 03:10 03/25/18 04:00 Temperature 97.7 F Pulse Rate 110 H 114 H 118 H Respiratory Rate 18 16 Blood Pressure 114/79 Pulse Oximetry 100 03/25/18 04:30 03/25/18 06:00 03/25/18 07:40 Temperature Pulse Rate 123 H Respiratory Rate 17 24 Blood Pressure Pulse Oximetry 100 03/25/18 07:47 03/25/18 08:00 03/25/18 10:00 Temperature 99 F Pulse Rate 120 H 126 H 124 H Respiratory Rate 27 H 29 H Blood Pressure 117/85 Pulse Oximetry 100 03/25/18 11:00 03/25/18 12:00 03/25/18 12:40 Temperature 98.8 F Pulse Rate 120 H 123 H Respiratory Rate 23 30 H 22 Blood Pressure 129/86 Pulse Oximetry 100 03/25/18 14:00 Temperature Pulse Rate 132 H Respiratory Rate Blood Pressure Pulse Oximetry Intake & Output 03/24/18 03/25/18 03/25/18 18:59 06:59 18:59 Intake Total 1000 / 1000 1757 / 1757 1000 / 1000 Output Total 1300 / 1300 1350 / 1350 600 / 600 Balance -300 / -300 407 / 407 400 / 400 Weight 73.1 kg Intake: IV 1000 / 1000 1370 / 1370 1000 / 1000 D5W/1/2NS + KCL 20 mEq Inj 1, 1000 / 1000 1000 / 1000 000 ML @ 50 mls/hr IV.CONT . Q20H [facility] Rx#:[id number] Levaquin 750 mg Premix Inj 150 150 / 150 ML @ 100 mls/hr IV.SIG Q24H [facility] Rx#:[id number] Magnesium Sulfate 1 gm/D5W 100 100 / 100 ml Premix 100 ML @ 100 mls/hr IV.SIG ONCE ONE Rx#:[id number] Magnesium Sulfate Inj 2 GM In 100 / 100 NS Inj 96 ML @ 50 mls/hr IV.SIG UNSCH PRN Rx#:[id number] Potassium Phosphate Inj 30 MMOL 520 / 520 In NS Inj 250 ML @ 43.333 mls/ hr IV.SIG ONCE ONE Rx#:[id number] Vancomycin Inj 1,000 MG In NS 500 / 500 Inj 250 ML @ 250 mls/hr IV.SIG Q12H [facility] Rx#:[id number] Tube Feeding 237 / 237 Water Bolus Amount 150 / 150 Output: Urine Amount (Catheter) 1300 / 1300 1350 / 1350 600 / 600 Straight 1300 / 1300 1350 / 1350 600 / 600 Other: Date of Last Bowel Movement 03/24/18 03/25/18 03/25/18 # Bowel Movements 4 3 Result Diagrams: 03/24/18 03:30 03/25/18 00:35 Other Results: Microbiology 03/24/18 14:15 Bronchial - Bronchial Gram Stain - Final 03/24/18 14:15 Bronchial - Bronchial Bronchial Culture - Preliminary gram negative rods Imaging: Chest X-Ray 03/07/18 00:00 CONCLUSION: 1. Persistent left lower lobe consolidation and pleural effusion. 2. Interval resolution of diffuse infiltrates in the right lung and reduction in the infiltrates in the left upper lung. Chest X-Ray 03/09/18 08:51 CONCLUSION: 1. Interval removal of left subclavian central line. 2. Stable small left pleural effusion and associated airspace disease in the left lower lobe. 3. Continued improving aeration of the left upper lung zone. 4. Stable mild airspace disease in the right lower lung zone. Chest X-Ray 03/11/18 21:53 CONCLUSION: Basilar airspace disease and pleural effusions similar to March 09. Endotracheal tube tip just above raz. Head CT 03/12/18 06:59 CONCLUSION: 1. No acute intracranial abnormality. 2. Minimal fluid in the mastoid air cells. Chest X-Ray 03/12/18 21:40 CONCLUSION: Placement of a right central line with tip in right atrium. No pneumothorax. Chest X-Ray 03/14/18 06:00 CONCLUSION: 1. No significant interval change. 2. Stable tubes and lines. 3. Stable small bilateral pleural effusions and associated lower lung zone airspace disease. Chest X-Ray 03/15/18 06:00 CONCLUSION: 1. No significant interval change. 2. Stable tubes and lines. 3. Stable bilateral [id number] pleural effusions with associated lower lobe airspace disease. Cervical Spine MRI 03/16/18 00:00 CONCLUSION: 1. Persistent abnormal signal in the cord extending from C4 down to T1. Much of this likely related to edema. The edema appears to extend over a smaller area on the current exam. There is a linear area of increased signal seen on the T1 and T2-weighted images at the left-sided cord at the C7-T1 level which may represent an area of focal hemorrhage within the cord. 2. Status post laminectomy with posterior fusion and hardware placed at the C4- T1 levels. 3. Prevertebral soft tissue swelling. 4. No focal fluid collection to suggest an abscess is seen. Head MRI 03/16/18 00:00 CONCLUSION: 1. There is a new area of nodular enhancement, abnormal FLAIR signal, and mild restricted diffusion at the baeza matter white matter junction in the left occipital lobe. 3 additional small areas of nodular enhancement measuring approximately 3 mm are also identified along the baeza matter surface in the left parietal high convexity. Etiology is nonspecific. Metastatic disease is one consideration but given the history infection is another consideration. Suggest attention to these areas at follow-up imaging. 2. Increased fluid in the mastoid air cells bilaterally. Chest X-Ray 03/17/18 06:00 CONCLUSION: Better aeration of the lungs with bibasilar densities and small pleural effusions. Chest X-Ray 03/19/18 06:00 CONCLUSION: Endotracheal tube tip is engaged in the left mainstem bronchus. Retraction by couple of centimeters recommended. Otherwise stable chest Chest X-Ray 03/20/18 05:51 CONCLUSION: Endotracheal tube tip remains in left mainstem bronchus. This should be withdrawn about 3 cm. Bilateral mostly basilar airspace disease and small pleural effusions. Chest X-Ray 03/20/18 06:00 CONCLUSION: Endotracheal tube tip in left mainstem bronchus. Bilateral mostly basilar airspace disease and effusions similar to March 19. Abdomen X-Ray 03/21/18 00:00 CONCLUSION: Nasogastric or orogastric tube tip in distal stomach. Chest X-Ray 03/23/18 06:00 CONCLUSION: Endotracheal tube tip at raz. NG enters stomach. Right central line in superior vena cava. Bilateral airspace disease and pleural effusions similar to March 20. Chest X-Ray 03/24/18 06:00 CONCLUSION: No significant change bilateral parenchymal opacities and small pleural effusions. Endotracheal tube tip is close to the raz. Nasogastric tube has been removed Chest X-Ray 03/24/18 13:36 CONCLUSION: Placement of tracheostomy tube otherwise not significantly changed. Objective Remarks: GENERAL: Patient is 62 yo female patient intubated and off sedation in no acute distress SKIN: Warm and dry. No rash. Sacral DTI HEAD: Normocephalic. EYES: No scleral icterus. No injection or drainage. NECK: Supple, trachea midline. No JVD or lymphadenopathy. Tracheostomy site is clean dry and intact. CARDIOVASCULAR: Tachycardic, RR. S1, S2. No S4. Without murmur RESPIRATORY: Breath sounds equal bilaterally. No accessory muscle use. Diminished in the bases bilaterally. GASTROINTESTINAL: Abdomen soft, non-tender, nondistended. Hypoactive bowel sounds appreciated. PEG tube site is clean dry and intact. MUSCULOSKELETAL: Trace bilateral lower extremity edema. NEURO: Arousable and follows commands with bilateral upper extremities. Nods head appropriately questions. She is [place] Islander-speaking and can understand some Luxem[place]ish phrases. Assessment and Plan - Assessment and Plan Plan: Neuro/Psych: History of C6 vertebral aneurysm and underwent a C4 through T1 posterior fusion resection of the C6 mass which was negative for malignancy with 90% of mass removed, just showing inflammation, and a C4 through 7 laminectomy on 02/03/2018. Severe metabolic encephalopathy Recent aneurysmal subarachnoid hemorrhage treated at [facility] in January 2018 History of left occipital subarachnoid hemorrhage February 15, 2018 Cord edema possible hemorrhage within the cord level C7 through T1 Off Precedex drip , monitor neuro status Repeat CT brain showed no acute abnormalities. EEG significant encephalopathy Seen by Dr. Newberry from [facility] [place] No further neurosurgical intervention anticipated at this point. MRI brain: previously noted subarachnoid hemorrhage overlying the occipital lobes has resolved. Tiny trace of residual hemorrhage in the posterior lateral ventricles. Stable chronic white matter changes. No new or acute intracranial process. Neurology consult requested Dr. Arellano/follow-up has followed EEG: Mod. encephalopathy MRI brain 03/16 : There is a new area of nodular enhancement, abnormal FLAIR signal, and mild restricted diffusion at the baeza matter white matter junction in the left occipital lobe. 3 additional small areas of nodular enhancement measuring approximately 3 mm are also identified along the baeza matter surface in the left parietal high convexity. Etiology is nonspecific. MRI cervical spine 03/16: Persistent abnormal signal in the cord extending from C4 down to T1. Much of this likely related to edema. The edema appears to extend over a smaller area on the current exam. There is a linear area of increased signal seen on the T1 and T2-weighted images at the left-sided cord at the C7-T1 level which may represent an area of focal hemorrhage within the cord. Status post laminectomy with posterior fusion and hardware placed at the C4-T1 levels. Prevertebral soft tissue swelling. No focal fluid collection to suggest an abscess. Currently on gabapentin 600 mg 3 times daily/home medication on hold for neuropathy pain Currently on cyclobenzaprine 5 mg every 8 hours. Hold secondary to AMS Acetaminophen 650 every 6 hours as needed fever C-collar is been removed Her neurosurgeon is Dr. Ku [phone] Pulm: Acute hypoxemic respiratory failure-status post percutaneous tracheostomy tube placement by Dr. Serrano 03/24 HCAP Extubated and reintubated on 03/11, failing CPAP trials due to low tidal volumes. PRVC 16/500// Ventilator bundle Albuterol/ipratropium aerosols every 4 hours with albuterol aerosols every 2 hours. Dyspnea Daily spontaneous breathing trials CT pulmonary angiogram chest: No PE, minimal consolidative changes left base has been > 18 days on mechanical ventilation. remains very weak with most likely myopathy of critical illness, poor tidal volumes. quickly failed trial of extubation 03/11. will require tracheostomy for further care. have consulted general surgery for trach. CV: A. fib/sinus tachycardia Septic shock- resolved. Hyperlipidemia Place on Lopressor 25mg Q12 Monitor HR and BP keep MAP>65mmHg. on IV metoprolol 2.5 mg every 6 hours PRN tachycardia Pravachol 20mg daily for dyslipidemia - Elevated troponin, type II demand ischemia NSTEMI - Echo 03/06 EF 50-55% - Will not anticoagulate at this time given risk/benefit with recent head bleed Cortisol level: 41 Cards has followed Renal/FEN/: Urinary retention Hypernatremia Hypopotassemia Hypomagnesia Monitor renal function, electrolytes replacement per protocol. D5 1/2 NS with 20 mEq KCl@50ml/hr. Discontinue his tube feeds currently at goal 80 mEq KCl 1 now. 2 g mag sulfate. Recheck at 1600 hrs. Continue oxybutynin 5 mg every 8 hours GI: Status post PEG tube 03/[address] Sutton Monitor LFT's, CT abd/pelvis without evidence of overt acute cholecystitis Tube feeds- Glucerna 1.5 with goal rate 50ml/hr have been resumed Lansoprazole for GI prophylaxis Docusate sodium/senna 1 tablet twice daily for bowel regimen consult GI for PEG. ID: Urinary tract infection ESBL E. coli bacteremia Pneumonia with Stenotrophomonas s/p Septic shock ID is following Continue with abx per ID (levofloxacin, vancomycin) Recheck sputum cx Follow up blood cultures negative 03/11, 03/15 sputum Stenotrophomonas 03/07: Sputum cx: NG 03/08, 03/09 BC: NGTD 03/06 BC Coag negative staph 03/05 BC: E.coli bacteremia 03/01 BC: E.coli ESBL 03/01 Urine cx: GNR Heme: Normocytic anemia Thrombocytopenia likely 2nd sepsis -Monitor CBC, s/p 2u PRBC 03/06 Heme is following- Dr. Miller Hep PLT ab negative FEN TIBC both low Transfuse one PRBC 03/18 MSKRheum Sacral deep tissue injury SLE positive History of RF - present on admission - does not appear grossly infected - likely not the source of infection - management per wound care nurse Endo: SSI if needed for glycemic control On levothyroxine 50mcg daily. TSH: 0.47 GI prophylaxis- On lansoprazole 30 mg daily DVT prophylaxis- SCD, hold Heparin Sq due to recent HEEL WHEELER bleed in January ( MRI brain 01/29) and thrombocytopenia Lines: Right subclavian CVL. Continued 03/23 PICC placed 03/23 Level 2 follow-up
[2018-03-25] MEDS: Collagenase Oint 30 GM Tube TOPICAL SCH (15:30)
[2018-03-25] MEDS ORDERED: Metoprolol Inj 5 MG/5 ML Vial IV.PUSH ONE (15:30)
--- NOTE | 2018-03-25 16:49 | P.PNGS ---
Subjective Patient reports: no new complaints, feels better, pain is less Physical Exam Vital signs: Vital Signs 03/24/18 18:00 03/24/18 20:00 03/24/18 20:33 Temperature 99.5 F Pulse Rate 120 H 121 H 118 H Respiratory Rate 16 16 Blood Pressure 114/74 Pulse Oximetry 100 100 03/24/18 22:00 03/25/18 00:00 03/25/18 02:00 Temperature 98.3 F Pulse Rate 103 H 104 H 110 H Respiratory Rate 16 Blood Pressure 118/82 Pulse Oximetry 100 03/25/18 03:10 03/25/18 04:00 03/25/18 04:30 Temperature 97.7 F Pulse Rate 114 H 118 H Respiratory Rate 18 16 17 Blood Pressure 114/79 Pulse Oximetry 100 100 03/25/18 06:00 03/25/18 07:40 03/25/18 07:47 Temperature Pulse Rate 123 H 120 H Respiratory Rate 24 27 H Blood Pressure Pulse Oximetry 03/25/18 08:00 03/25/18 10:00 03/25/18 11:00 Temperature 99 F Pulse Rate 126 H 124 H 120 H Respiratory Rate 29 H 23 Blood Pressure 117/85 Pulse Oximetry 100 03/25/18 12:00 03/25/18 12:40 03/25/18 14:00 Temperature 98.8 F Pulse Rate 123 H 132 H Respiratory Rate 30 H 22 Blood Pressure 129/86 Pulse Oximetry 100 03/25/18 15:00 03/25/18 16:00 03/25/18 16:29 Temperature 98.7 F Pulse Rate 123 H 118 H Respiratory Rate 20 28 H 22 Blood Pressure 134/92 H Pulse Oximetry 100 100 Intake & Output 03/24/18 03/25/18 03/25/18 18:59 06:59 18:59 Intake Total 1000 / 1000 1757 / 1757 1000 / 1000 Output Total 1300 / 1300 1350 / 1350 1800 / 1800 Balance -300 / -300 407 / 407 -800 / -800 Weight 73.1 kg Intake: IV 1000 / 1000 1370 / 1370 1000 / 1000 D5W/1/2NS + KCL 20 mEq Inj 1, 1000 / 1000 1000 / 1000 000 ML @ 50 mls/hr IV.CONT . Q20H [facility] Rx#:[id number] Levaquin 750 mg Premix Inj 150 150 / 150 ML @ 100 mls/hr IV.SIG Q24H [facility] Rx#:[id number] Magnesium Sulfate 1 gm/D5W 100 100 / 100 ml Premix 100 ML @ 100 mls/hr IV.SIG ONCE ONE Rx#:[id number] Magnesium Sulfate Inj 2 GM In 100 / 100 NS Inj 96 ML @ 50 mls/hr IV.SIG UNSCH PRN Rx#:[id number] Potassium Phosphate Inj 30 MMOL 520 / 520 In NS Inj 250 ML @ 43.333 mls/ hr IV.SIG ONCE ONE Rx#:[id number] Vancomycin Inj 1,000 MG In NS 500 / 500 Inj 250 ML @ 250 mls/hr IV.SIG Q12H [facility] Rx#:[id number] Tube Feeding 237 / 237 Water Bolus Amount 150 / 150 Output: Urine Amount (Catheter) 1300 / 1300 1350 / 1350 1800 / 1800 Straight 1300 / 1300 1350 / 1350 1800 / 1800 Other: Date of Last Bowel Movement 03/24/18 03/25/18 03/25/18 # Bowel Movements 4 3 # Incontinent Bowel Movements 1 - Routine Abdominal Exam Present: soft, normoactive bowel sounds, tenderness (minimal tenderness; no guarding or rebound) - Urinary Catheter Management Straight Cath placed during this visit: yes, but has since been removed by the nurse Reason for continuing: Not indwelling catheter Insertion date: 03/25/18 Insertion time: 15:00 Removal date: 03/25/18 Removal time: 15:10 Indwelling Urethral Catheter Cath placed during this visit: yes, but has since been removed by the nurse Reason for continuing: Continue criteria not met Insertion date: 03/22/18 Insertion time: 15:30 Removal date: 03/21/18 Removal time: 23:30 Indwelling Temp Sensing Catheter Cath placed during this visit: no Assessment and Plan - Assessment (1) Perforated ulcer Code(s): K27.5 - Chronic or unspecified peptic ulcer, site unspecified, with perforation Status: Acute Plan: Patient continues to improve symptomatically and gastrografin UGI today showed no extravasation of contrast. Will start her on clear liquids for now.
[2018-03-25] MEDS ORDERED: Morphine Inj 4 MG/ML Vial IV.PUSH PRN (19:58)
[2018-03-25] MEDS: Morphine Sulfate Inj 2 MG/ML Vial IV.PUSH PRN (20:28)
[2018-03-26] MEDS: Insulin NovoLIN Regular Correctional Sugar Inj SQ SCH ×4 (00:13→17:55)
[2018-03-26] MEDS: Oral Hygiene Kit OROPHARYNG SCH ×4 (00:13→17:52)
[2018-03-26] MEDS: Morphine Sulfate Inj 2 MG/ML Vial IV.PUSH PRN (03:12)
[2018-03-26] MEDS: Hypromellose 0.3% Opth Gel 10 GM Bottle EACH EYE SCH ×3 (03:12→20:04)
[2018-03-26] MEDS: Acetaminophen 325 MG Tablet PO PRN (03:13)
[2018-03-26 03:54] LABS: Baso % (Auto) 0.2 % (0.0-2.0); Eos % (Auto) 0.2 % (0.0-4.0); Hemoglobin 9.8 gm/dL (11.6-15.3); Lymph # (Auto) 1.5 th/mm3 (1.0-4.8); Lymph % (Auto) 18.1 % (9.0-44.0); Mean Corpuscular HGB Conc 33.9 % (32.0-36.0); Mean Corpuscular Hemoglobin 30.5 pg (27.0-34.0); Mean Corpuscular Volume 89.8 fL (80.0-100.0); Mean Platelet Volume 8.1 fL (7.0-11.0); Mono # (Auto) 0.6 th/mm3 (0.0-0.9); Mono % (Auto) 6.5 % (0.0-8.0); Neut # (Auto) 6.4 th/mm3 (1.8-7.7); Platelet Count 132 th/mm3 (150-450); Red Blood Count 3.23 mil/mm3 (4.00-5.30); Red Cell Distribution Width 16.5 % (11.6-17.2); White Blood Count 8.5 th/mm3 (4.0-11.0)
[2018-03-26 04:19] LABS: Anion Gap 6 meq/L (5-15); Blood Urea Nitrogen 10 mg/dL (7-18); Calcium 6.6 mg/dL (8.5-10.1); Carbon Dioxide 26.4 meq/L (21.0-32.0); Chloride 107 meq/L (98-107); Glomerular Filtration Rate Greater Than 89 mL/min (>89); Glucose,Random 113 mg/dL (74-106); Magnesium 1.4 mg/dL (1.5-2.5); Phosphorus 2.1 mg/dL (2.5-4.9); Potassium 3.3 meq/L (3.5-5.1); Sodium 139 meq/L (136-145)
[2018-03-26 04:31] LABS: Total Protein 4.8 g/dL (6.4-8.2)
[2018-03-26] MEDS: Magnesium Sulfate Inj 2 GM in Sodium Chlor 0.9% Inj 96 ML IV.SIG PRN (05:05)
[2018-03-26] MEDS: Potassium Phosphate Inj 30 MMOL in Sodium Chlor 0.9% Inj 250 ML IV.SIG PRN (05:05)
[2018-03-26] MEDS: Levothyroxine 50 MCG Tablet PO SCH (06:09)
[2018-03-26] MEDS: Vancomycin Inj 1,000 MG in Sodium Chlor 0.9% Inj 250 ML IV.SIG SCH ×2 (06:10→17:52)
[2018-03-26] MEDS ORDERED: Potassium Chloride 25 MEQ Effervescent Tablet PO ONE (07:50)
[2018-03-26] MEDS ORDERED: Mag Sulf 1 gm/100 ml Premix 100 ML IV.SIG ONE (07:50)
--- NOTE | 2018-03-26 08:06 | P.PNCC ---
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 she was sent to [facility] for procedural management of these. She was then transferred to [place] [facility] on 02/28. Please see the dictated hospitalist consult note on 02/28 on admission to [place] for a detailed record of the hospital course while at [facility]. Today, she was found to be very tachycardic in the 160s and hypotensive with sbp in the 70s. She was emergently transferred to the ICU after rapid response was called for evaluation and management of her hypotension. Of note, she did not have iv access. I met her on arrival to the ICU. I placed 2 18g piv. 12-lead EKG confirms sinus tachycardia. I due to the fast rate, I gave 6mg adenosine to slow it down diagnostically, and it slowed down temporarily to a HR in the 70s, confirming sinus rhythm. I performed bedside critical care echocardiography which demonstrates grossly preserve biventricular function. in particular, RV is decompressed and well-functioning. IVC is completely collapsable. no pericardial effusion. I gave her 3L NS bolus ivf which improved her SBP to 110s and decreased her HR to 110s. She is afebrile. stat CBC shows anemia (history of recent femoral artery pseudoaneurysm), CMP demonstrates elevated AST and Alk phos, elevated lactate at 3.7. Cr elevated above baseline. Patient denies any complaints to me. she is mostly barbadian speaking, but communicates in basic Belarusian. specifically denies chest pain, shortness of breath, fever/chills, nausea, vomiting, abdominal pain, constipation, diarrhea. I discussed with her family, she has been eating and drinking well even up to today. ROS otherwise negative. 03/02 Patient is awake lying in bed in TRAV. On room air oxygen. T:103.2 this morning She was hypotensive overnight initially placed on Neosyn now off pressor with BP 147/67 with MAP 96. 03/03 No events overnight. Seems more awake and alert this morning. T: 100.2 at midnight. BP and HR better ( 119/58 with MAP 83mmHg). On no pressors. BC from 03/01: E.coli ESBL 6/30: clinically improving. slightly tachycardic. on appropriate therapy for her ESBL e. coli. denies complaints. hemodynamically stable. on room air. 03/05: Patient developed worsening respiratory distress yesterday and required endotracheal intubation and was placed on mechanical ventilation. Hypotension overnight for which patient was started on phenylephrine. Developed A. fib with RVR and was started on amiodarone gtt. 03/06 Patient remains sedated and intubated. Tmax 101.6, On Amio drip. 03/07 Patient remains intubated off sedation. s/p transfusion 2u PRBC yesterday. Tolerating tube feeds. Afebrile. Off Amio drip. 03/08 Patient remains intubated. T:100.9 last night. 03/09 No events overnight. Tolerated CPAP for approx 4 hrs yesterday. Off sedation. Afebrile. 03/10 No events overnight T:100.1 at 4am, Awake, patient was on CPAP for short time yesterday and placed back on PRVC mode for low TV and tachycardia. 03/11 No events overnight. Tolerated CPAP x 4hrs yesterday. T:100.6 yesterday. On no sedation. 03/12 Patient was extubated yesterday reintubated last night for resp distress and AMS. Afebrile. On Diprivan infusion for sedation. 03/13: Remains intubated critical, remains encephalopathy unresponsive off sedation. Afebrile EEG showed significant encephalopathy no seizures. Right subclavian central line placed, remains on Luis-Synephrine to keep map above 65 03/14: Remains encephalopathy again unresponsive. Eyes are open but no tracking did not follow commands. Remains leukopenic. Weaned off Luis-Synephrine. Not tolerating CPAP due to low tidal volume 03/15: Continues to fail CPAP due to low tidal volume. IV Levaquin added yesterday by ID for stenotrophomonas in the sputum. Remains encephalopathic did not follow commands but eyes are spontaneously open. I have requested neurology consult today 03/16: T-max 100.1. Currently 99. EEG has been performed. Does not follow commands. Tube feeds at 30 cc an hour. Positive BM. 03/17 Patient remains intubated on Precedex drip but awake. 03/18 T-current 100.7. Tolerating tube feeds at goal. Arousable the ventilator and follows command. Left side is chronically weaker. Discussed with Dr. Gutierrez /neurology. Reviewed MRI brain. Recommended evaluation by neurosurgery for abnormal MRI C-spine. Patient's CT surgeon at [facility] is Dr. Ku [phone] 03/19: T-max 100.7. Currently 99. Tachycardic. Tolerated CPAP trial. On the ventilator currently. Positive BM yesterday. 03/20 Patient was on Diprivan and Precedex drip overnight now off sedation. Afebrile. 03/21: no improvements. has been intubated for 17 days, and failed extubation quickly 03/12. needs trach and peg for further progress. 03/22: Afebrile. Intubation day #18. Patient currently contemplating trach and PEG options. Currently off dexmedetomidine drip. 03/23: Afebrile. Plan for PEG tube today. Awake and alert and interactive on the ventilator. Tube feeds are currently off. 03/24: Afebrile. Status post PEG tube by Dr. Orellana 03/23. Plan for percutaneous tracheostomy Dr. Serrano at 10 AM today 03/24. Tachycardic. Will replace phosphorus and magnesium this a.m. 03/25: Status post tracheostomy 03/[address] Serrano. Currently on PSV trial. No new issues overnight. Tube feeds at goal. Subjective 03/26: Low-grade temperatures overnight. Tube feeds have been restarted. Will start on CPAP trials today. Objective Vital Signs / I&O: Vital Signs 03/25/18 10:00 03/25/18 11:00 03/25/18 12:00 Temperature 98.8 F Pulse Rate 124 H 120 H 123 H Respiratory Rate 23 30 H Blood Pressure 129/86 Pulse Oximetry 100 03/25/18 12:40 03/25/18 14:00 03/25/18 15:00 Temperature Pulse Rate 132 H 123 H Respiratory Rate 22 20 Blood Pressure Pulse Oximetry 03/25/18 16:00 03/25/18 16:29 03/25/18 18:00 Temperature 98.7 F Pulse Rate 118 H 132 H Respiratory Rate 28 H 22 Blood Pressure 134/92 H Pulse Oximetry 100 100 03/25/18 19:50 03/25/18 20:00 03/25/18 22:00 Temperature 99.2 F Pulse Rate 133 H 135 H 126 H Respiratory Rate 19 16 Blood Pressure 146/98 H Pulse Oximetry 100 100 03/25/18 23:27 03/26/18 00:00 03/26/18 02:00 Temperature 99.4 F Pulse Rate 121 H 120 H 122 H Respiratory Rate 17 16 Blood Pressure 124/80 Pulse Oximetry 100 100 03/26/18 03:24 03/26/18 04:00 03/26/18 04:02 Temperature 100.5 F H Pulse Rate 120 H 124 H Respiratory Rate 18 16 19 Blood Pressure 118/68 Pulse Oximetry 100 100 03/26/18 06:00 Temperature Pulse Rate 111 H Respiratory Rate Blood Pressure Pulse Oximetry Intake & Output 03/25/18 03/26/18 03/26/18 18:59 06:59 18:59 Intake Total 1200 / 1200 2134 / 2134 350 / 350 Output Total 2800 / 2800 2400 / 2400 Balance -1600 / -1600 -266 / -266 350 / 350 Weight 72.4 kg Intake: IV 1000 / 1000 1450 / 1450 350 / 350 Precedex Inj 200 MCG In NS Inj 50 / 50 48 ML @ 0.2 MCG/KG/HR 3.53 mls/ hr IV.CONT TITRATE PRN Rx#: [id number] D5W/1/2NS + KCL 20 mEq Inj 1, 1000 / 1000 1000 / 1000 000 ML @ 50 mls/hr IV.CONT . Q20H KARINA Rx#:[id number] Levaquin 750 mg Premix Inj 150 150 / 150 ML @ 100 mls/hr IV.SIG Q24H KARINA Rx#:[id number] Magnesium Sulfate Inj 2 GM In 100 / 100 NS Inj 96 ML @ 50 mls/hr IV.SIG UNSCH PRN Rx#:[id number] Vancomycin Inj 1,000 MG In NS 250 / 250 250 / 250 Inj 250 ML @ 250 mls/hr IV.SIG Q12H KARINA Rx#:[id number] Tube Feeding 200 / 200 534 / 534 Water Bolus Amount 150 / 150 Output: Urine Amount (Catheter) 2800 / 2800 2400 / 2400 Straight 2800 / 2800 2400 / 2400 Other: Date of Last Bowel Movement 03/25/18 03/26/18 # Bowel Movements 2 # Incontinent Bowel Movements 1 Result Diagrams: 03/26/18 03:00 03/26/18 03:00 Other Results: Microbiology 03/24/18 14:15 Bronchial - Bronchial Gram Stain - Final 03/24/18 14:15 Bronchial - Bronchial Bronchial Culture - Preliminary gram negative rods 03/16/18 19:40 Blood - Line Aerobic Blood Culture - Final No growth in 5 days 03/16/18 19:40 Blood - Line Anaerobic Blood Culture - Final No growth in 5 days 03/16/18 19:45 Blood - Line Aerobic Blood Culture - Final No growth in 5 days 03/16/18 19:45 Blood - Line Anaerobic Blood Culture - Final No growth in 5 days 03/16/18 15:28 Catheterized Urine Urine Culture - Final No growth in 48 hours 03/15/18 04:50 Sputum - Endotracheal Gram Stain - Final 03/15/18 04:50 Sputum - Endotracheal Sputum Culture - Final Stenotrophomonas maltophilia 03/12/18 00:46 Blood - Peripheral Aerobic Blood Culture - Final No growth in 5 days 03/12/18 00:46 Blood - Peripheral Anaerobic Blood Culture - Final No growth in 5 days 03/12/18 00:40 Blood - Peripheral Aerobic Blood Culture - Final No growth in 5 days 03/12/18 00:40 Blood - Peripheral Anaerobic Blood Culture - Final No growth in 5 days 03/15/18 23:15 Stool Stool Occult Blood (ABEBE) - Final Hemoccult negative 03/11/18 22:30 Sputum - Endotracheal Gram Stain - Final 03/11/18 22:30 Sputum - Endotracheal Sputum Culture - Final Stenotrophomonas maltophilia 03/09/18 19:21 Blood - Peripheral Aerobic Blood Culture - Final No growth in 5 days 03/09/18 19:21 Blood - Peripheral Anaerobic Blood Culture - Final No growth in 5 days 03/09/18 19:28 Blood - Peripheral Aerobic Blood Culture - Final No growth in 5 days 03/09/18 19:28 Blood - Peripheral Anaerobic Blood Culture - Final No growth in 5 days 03/08/18 11:00 Blood - Peripheral Aerobic Blood Culture - Final No growth in 5 days 03/08/18 11:00 Blood - Peripheral Anaerobic Blood Culture - Final No growth in 5 days 03/08/18 11:09 Blood - Peripheral Aerobic Blood Culture - Final No growth in 5 days 03/08/18 11:09 Blood - Peripheral Anaerobic Blood Culture - Final No growth in 5 days 03/09/18 16:45 Sputum - Endotracheal Gram Stain - Final 03/09/18 16:45 Sputum - Endotracheal Sputum Culture - Final Heavy growth normal respiratory ramesh 03/06/18 05:12 Blood - Peripheral Aerobic Blood Culture - Final Staphylococcus coag negative 03/06/18 05:12 Blood - Peripheral Anaerobic Blood Culture - Final Staphylococcus epidermidis 03/05/18 15:33 Blood - Peripheral Aerobic Blood Culture - Final No growth in 5 days 03/05/18 15:33 Blood - Peripheral Anaerobic Blood Culture - Final Escherichia coli ESBL positive 03/08/18 17:55 Catheterized Urine Urine Culture - Final No growth in 48 hours 03/07/18 16:00 Sputum - Endotracheal Gram Stain - Final 03/07/18 16:00 Sputum - Endotracheal Sputum Culture - Final Heavy growth normal respiratory ramesh 03/05/18 12:55 Blood - Peripheral Aerobic Blood Culture - Final Escherichia coli ESBL positive 03/05/18 12:55 Blood - Peripheral Anaerobic Blood Culture - Final Escherichia coli ESBL positive Imaging: Chest X-Ray 03/07/18 00:00 CONCLUSION: 1. Persistent left lower lobe consolidation and pleural effusion. 2. Interval resolution of diffuse infiltrates in the right lung and reduction in the infiltrates in the left upper lung. Chest X-Ray 03/09/18 08:51 CONCLUSION: 1. Interval removal of left subclavian central line. 2. Stable small left pleural effusion and associated airspace disease in the left lower lobe. 3. Continued improving aeration of the left upper lung zone. 4. Stable mild airspace disease in the right lower lung zone. Chest X-Ray 03/11/18 21:53 CONCLUSION: Basilar airspace disease and pleural effusions similar to March 09. Endotracheal tube tip just above raz. Head CT 03/12/18 06:59 CONCLUSION: 1. No acute intracranial abnormality. 2. Minimal fluid in the mastoid air cells. Chest X-Ray 03/12/18 21:40 CONCLUSION: Placement of a right central line with tip in right atrium. No pneumothorax. Chest X-Ray 03/14/18 06:00 CONCLUSION: 1. No significant interval change. 2. Stable tubes and lines. 3. Stable small bilateral pleural effusions and associated lower lung zone airspace disease. Chest X-Ray 03/15/18 06:00 CONCLUSION: 1. No significant interval change. 2. Stable tubes and lines. 3. Stable bilateral [id number] pleural effusions with associated lower lobe airspace disease. Cervical Spine MRI 03/16/18 00:00 CONCLUSION: 1. Persistent abnormal signal in the cord extending from C4 down to T1. Much of this likely related to edema. The edema appears to extend over a smaller area on the current exam. There is a linear area of increased signal seen on the T1 and T2-weighted images at the left-sided cord at the C7-T1 level which may represent an area of focal hemorrhage within the cord. 2. Status post laminectomy with posterior fusion and hardware placed at the C4- T1 levels. 3. Prevertebral soft tissue swelling. 4. No focal fluid collection to suggest an abscess is seen. Head MRI 03/16/18 00:00 CONCLUSION: 1. There is a new area of nodular enhancement, abnormal FLAIR signal, and mild restricted diffusion at the baeza matter white matter junction in the left occipital lobe. 3 additional small areas of nodular enhancement measuring approximately 3 mm are also identified along the baeza matter surface in the left parietal high convexity. Etiology is nonspecific. Metastatic disease is one consideration but given the history infection is another consideration. Suggest attention to these areas at follow-up imaging. 2. Increased fluid in the mastoid air cells bilaterally. Chest X-Ray 03/17/18 06:00 CONCLUSION: Better aeration of the lungs with bibasilar densities and small pleural effusions. Chest X-Ray 03/19/18 06:00 CONCLUSION: Endotracheal tube tip is engaged in the left mainstem bronchus. Retraction by couple of centimeters recommended. Otherwise stable chest Chest X-Ray 03/20/18 05:51 CONCLUSION: Endotracheal tube tip remains in left mainstem bronchus. This should be withdrawn about 3 cm. Bilateral mostly basilar airspace disease and small pleural effusions. Chest X-Ray 03/20/18 06:00 CONCLUSION: Endotracheal tube tip in left mainstem bronchus. Bilateral mostly basilar airspace disease and effusions similar to March 19. Abdomen X-Ray 03/21/18 00:00 CONCLUSION: Nasogastric or orogastric tube tip in distal stomach. Chest X-Ray 03/23/18 06:00 CONCLUSION: Endotracheal tube tip at raz. NG enters stomach. Right central line in superior vena cava. Bilateral airspace disease and pleural effusions similar to March 20. Chest X-Ray 03/24/18 06:00 CONCLUSION: No significant change bilateral parenchymal opacities and small pleural effusions. Endotracheal tube tip is close to the raz. Nasogastric tube has been removed Chest X-Ray 03/24/18 13:36 CONCLUSION: Placement of tracheostomy tube otherwise not significantly changed. Objective Remarks: GENERAL: Patient is 62 yo female patient currently on ventilator via tracheostomy resting in bed in no acute distress SKIN: Warm and dry. No rash. Sacral DTI HEAD: Normocephalic. EYES: No scleral icterus. No injection or drainage. NECK: Supple, trachea midline. No JVD or lymphadenopathy. Tracheostomy site is clean dry and intact. CARDIOVASCULAR: Tachycardic, RR. S1, S2. No S4. Without murmur RESPIRATORY: Breath sounds equal bilaterally. No accessory muscle use. Diminished in the bases bilaterally. GASTROINTESTINAL: Abdomen soft, non-tender, nondistended. Hypoactive bowel sounds appreciated. PEG tube site is clean dry and intact. MUSCULOSKELETAL: Trace bilateral lower extremity edema. NEURO: Arousable and follows commands with bilateral upper extremities. Nods head appropriately questions. She is Frisian-speaking and can understand some Belarusian phrases. Assessment and Plan - Assessment and Plan Plan: Neuro/Psych: History of C6 vertebral aneurysm and underwent a C4 through T1 posterior fusion resection of the C6 mass which was negative for malignancy with 90% of mass removed, just showing inflammation, and a C4 through 7 laminectomy on 02/03/2018. Severe metabolic encephalopathy Recent aneurysmal subarachnoid hemorrhage treated at [facility] in January 2018 History of left occipital subarachnoid hemorrhage February 15, 2018 Cord edema possible hemorrhage within the cord level C7 through T1 Off Precedex drip , monitor neuro status Repeat CT brain showed no acute abnormalities. EEG significant encephalopathy [place] [facility] [place] further neurosurgical intervention anticipated at this point. MRI brain: previously noted subarachnoid hemorrhage overlying the occipital lobes has resolved. Tiny trace of residual hemorrhage in the posterior lateral ventricles. Stable chronic white matter changes. No new or acute intracranial process. Neurology consult requested Dr. Arellano/follow-up has followed EEG: Mod. encephalopathy MRI brain 03/16 : There is a new area of nodular enhancement, abnormal FLAIR signal, and mild restricted diffusion at the baeza matter white matter junction in the left occipital lobe. 3 additional small areas of nodular enhancement measuring approximately 3 mm are also identified along the baeza matter surface in the left parietal high convexity. Etiology is nonspecific. MRI cervical spine 03/16: Persistent abnormal signal in the cord extending from C4 down to T1. Much of this likely related to edema. The edema appears to extend over a smaller area on the current exam. There is a linear area of increased signal seen on the T1 and T2-weighted images at the left-sided cord at the C7-T1 level which may represent an area of focal hemorrhage within the cord. Status post laminectomy with posterior fusion and hardware placed at the C4-T1 levels. Prevertebral soft tissue swelling. No focal fluid collection to suggest an abscess. Currently on gabapentin 600 mg 3 times daily/home medication on hold for neuropathy pain Currently on cyclobenzaprine 5 mg every 8 hours. Hold secondary to AMS Schedule oxycodone 2.5 mg by tube every 6 hours for pain. Acetaminophen 650 every 6 hours as needed fever/pain 1 through 5 Tramadol 50 mg every 8 hours as needed pain 6 through 10 As needed morphine sulfate 2 milligrams every 3 hours as needed breakthrough pain C-collar has been removed/okayed by neurosurgery Her neurosurgeon is Dr. Ku [phone] Pulm: Acute hypoxemic respiratory failure-status post percutaneous tracheostomy tube placement by Dr. Serrano 03/24 HCAP Extubated and reintubated on 03/11, failing CPAP trials due to low tidal volumes. PRVC 16/500///35 Ventilator bundle Albuterol/ipratropium aerosols every 4 hours with albuterol aerosols every 2 hours. Dyspnea Daily CPAP trial CT pulmonary angiogram chest: No PE, minimal consolidative changes left base CV: A. fib/sinus tachycardia Septic shock- resolved. Hyperlipidemia Place on Lopressor 25mg Q6h Monitor HR and BP keep MAP>65mmHg. Pravachol 20mg daily for dyslipidemia - Elevated troponin, type II demand ischemia NSTEMI - Echo 03/06 EF 50-55% - Will not anticoagulate at this time given risk/benefit with recent head bleed Cortisol level: 41 Cards has followed Renal/FEN/: Urinary retention Hypophosphatemia Hypopotassemia Hypomagnesia Monitor renal function, electrolytes replacement per protocol. 30 mmol K-Phos, 3 g mag sulfate, 25 mEq potassium chloride. Continue oxybutynin 5 mg every 8 hours GI: Status post PEG tube 03/[address] Sutton Monitor LFT's, CT abd/pelvis without evidence of overt acute cholecystitis Tube feeds- Glucerna 1.5 with goal rate 50ml/hr have been resumed Lansoprazole for GI prophylaxis Docusate sodium/senna 1 tablet twice daily for bowel regimen consult GI for PEG. ID: Urinary tract infection ESBL E. coli bacteremia Pneumonia with Stenotrophomonas s/p Septic shock ID is following Continue with abx per ID (levofloxacin, vancomycin) 03/24 -bronchoscopy -gram-negative rods 03/16 -blood cultures 2 -negative 03/11, 03/15 sputum Stenotrophomonas 03/07: Sputum cx: NG 03/08, 03/09 BC: NGTD 03/06 BC Coag negative staph 03/05 BC: E.coli bacteremia 03/01 BC: E.coli ESBL 03/01 Urine cx: GNR Heme: Normocytic anemia Thrombocytopenia likely 2nd sepsis -Monitor CBC, s/p 2u PRBC 03/06 Heme is following- Dr. Miller Hep PLT ab negative FEN TIBC both low Transfuse one PRBC 03/18 MSKRheum Sacral deep tissue injury SLE positive History of RF - present on admission - does not appear grossly infected - likely not the source of infection - management per wound care nurse Endo: SSI if needed for glycemic control On levothyroxine 50mcg daily. TSH: 0.47 GI prophylaxis- On lansoprazole 30 mg daily DVT prophylaxis- SCD, hold Heparin Sq due to recent [employer] bleed in January ( MRI brain 01/29) and thrombocytopenia Lines: Right subclavian CVL. Discontinued 03/23 PICC placed 03/23 Level 2 follow-up
[2018-03-26] MEDS ORDERED: Morphine Inj 4 MG/ML Vial IV.PUSH PRN (08:15)
[2018-03-26] MEDS: Gabapentin 300 MG Capsule PO SCH ×3 (08:26→17:52)
[2018-03-26] MEDS: Metoprolol Tartrate 25 MG Tablet PO SCH ×3 (08:26→20:04)
[2018-03-26] MEDS: Chlorhexidine 0.12% Oral Kit 15 ML UDC OROPHARYNG SCH ×2 (08:27→21:43)
[2018-03-26] MEDS: Heparin Central Flush 100 UNIT/ML 5 ML Vial IV.FLUSH SCH (08:27)
[2018-03-26] MEDS: Collagenase Oint 30 GM Tube TOPICAL SCH (14:46)
[2018-03-27] MEDS: Oral Hygiene Kit OROPHARYNG SCH ×5 (00:01→23:44)
[2018-03-27] MEDS: Insulin NovoLIN Regular Correctional Sugar Inj SQ SCH ×5 (00:01→23:44)
[2018-03-27] MEDS: Hypromellose 0.3% Opth Gel 10 GM Bottle EACH EYE SCH ×3 (02:15→18:00)
[2018-03-27] MEDS: Metoprolol Tartrate 25 MG Tablet PO SCH ×4 (02:15→23:43)
[2018-03-27] MEDS: Levothyroxine 50 MCG Tablet PO SCH (05:28)
[2018-03-27] MEDS: Vancomycin Inj 1,000 MG in Sodium Chlor 0.9% Inj 250 ML IV.SIG SCH ×2 (05:28→17:45)
[2018-03-27] MEDS ORDERED: Pharmacy Ordered Lab Info OTHER ONE ×2 (05:45→17:45)
[2018-03-27 06:58] LABS: Baso % (Auto) 0.3 % (0.0-2.0); Eos % (Auto) 0.6 % (0.0-4.0); Hematocrit 27.1 % (35.0-46.0); Hemoglobin 9.2 gm/dL (11.6-15.3); Lymph # (Auto) 1.2 th/mm3 (1.0-4.8); Lymph % (Auto) 18.1 % (9.0-44.0); Mean Corpuscular Hemoglobin 30.7 pg (27.0-34.0); Mean Corpuscular Volume 90.4 fL (80.0-100.0); Mean Platelet Volume 8.7 fL (7.0-11.0); Mono # (Auto) 0.5 th/mm3 (0.0-0.9); Neut # (Auto) 4.8 th/mm3 (1.8-7.7); Platelet Count 143 th/mm3 (150-450); Red Cell Distribution Width 16.4 % (11.6-17.2); White Blood Count 6.5 th/mm3 (4.0-11.0)
[2018-03-27 07:26] LABS: Anion Gap 4 meq/L (5-15); Blood Urea Nitrogen 17 mg/dL (7-18); Calcium 7.1 mg/dL (8.5-10.1); Carbon Dioxide 27.6 meq/L (21.0-32.0); Chloride 106 meq/L (98-107); Glomerular Filtration Rate Greater Than 89 mL/min (>89); Glucose,Random 104 mg/dL (74-106); Magnesium 1.7 mg/dL (1.5-2.5); Phosphorus 2.4 mg/dL (2.5-4.9); Potassium 3.7 meq/L (3.5-5.1); Sodium 138 meq/L (136-145)
[2018-03-27 08:03] LABS: Total Protein 4.7 g/dL (6.4-8.2)
[2018-03-27] MEDS: Gabapentin 300 MG Capsule PO SCH ×3 (09:54→17:45)
[2018-03-27] MEDS: Chlorhexidine 0.12% Oral Kit 15 ML UDC OROPHARYNG SCH ×2 (09:55→23:43)
[2018-03-27] MEDS: Heparin Central Flush 100 UNIT/ML 5 ML Vial IV.FLUSH SCH (09:55)
[2018-03-27] MEDS: Mag Sulf 1 gm/100 ml Premix 100 ML IV.SIG SCH ×2 (10:25→10:32)
[2018-03-27] MEDS: Acetaminophen 325 MG Tablet PO PRN (10:32)
[2018-03-27] MEDS: Collagenase Oint 30 GM Tube TOPICAL SCH (14:09)
--- NOTE | 2018-03-27 14:43 | P.PNID ---
Subjective Remarks: Patient is on CPAP for 6 hours so far today. Opens eyes to commands. Attempts to follow commands. However very lethargic. Not receiving any continuous sedation currently. Temperature elevation to 102. Sputum culture had Stenotrophomonas from 03/11/2018. post tracheostomy and PEG tube insertion 03/24/2018. Antibiotics: Vancomycin Levaquin. Lines: Right upper extremity PICC line. Past Medical History: Diabetes mellitus, hypertension, hypothyroidism, systemic lupus erythematosus, rheumatoid arthritis, anemia, recent subarachnoid hemorrhage, C6 mass resection, hysterectomy, bladder sling, appendectomy, C4-C7 laminectomy, C4-T1 posterior fusion. Allergies/Adverse Reactions: Allergies codeine Allergy (Intermediate, Verified 01/24/18 17:12) nitroglycerin Adverse Reaction (Severe, Verified 01/25/18 09:14) Nausea/Vomiting Objective Vital Signs 03/26/18 14:54 03/26/18 15:00 03/26/18 15:30 Temperature Pulse Rate 106 H 106 H 105 H Respiratory Rate 18 19 17 Blood Pressure 106/68 104/68 Pulse Oximetry 100 100 100 03/26/18 16:00 03/26/18 16:30 03/26/18 17:00 Temperature 97.8 F Pulse Rate 104 H 105 H 106 H Respiratory Rate 18 20 19 Blood Pressure 103/70 105/75 109/79 Pulse Oximetry 100 100 100 03/26/18 17:30 03/26/18 18:00 03/26/18 18:30 Temperature Pulse Rate 108 H 110 H 112 H Respiratory Rate 19 21 32 H Blood Pressure 113/81 120/82 122/83 Pulse Oximetry 100 100 97 03/26/18 19:00 03/26/18 19:30 03/26/18 19:46 Temperature Pulse Rate 113 H 115 H 110 H Respiratory Rate 9 L 9 L 20 Blood Pressure 116/83 114/82 Pulse Oximetry 100 100 100 03/26/18 20:00 03/26/18 20:01 03/26/18 20:30 Temperature 99.9 F H Pulse Rate 116 H 116 H 114 H Respiratory Rate 22 22 21 Blood Pressure 153/86 H 153/86 H 129/79 Pulse Oximetry 100 100 100 03/26/18 21:00 03/26/18 21:30 03/26/18 22:00 Temperature Pulse Rate 110 H 106 H 107 H Respiratory Rate 20 20 21 Blood Pressure 116/79 108/77 106/73 Pulse Oximetry 100 100 100 03/26/18 22:30 03/26/18 23:00 03/26/18 23:30 Temperature Pulse Rate 107 H 110 H 108 H Respiratory Rate 21 22 19 Blood Pressure 107/74 139/93 H 114/76 Pulse Oximetry 100 100 100 03/27/18 00:00 03/27/18 00:15 03/27/18 00:30 Temperature 99.5 F Pulse Rate 110 H 110 H 110 H Respiratory Rate 22 25 H 22 Blood Pressure 106/71 110/66 Pulse Oximetry 100 100 100 03/27/18 01:00 03/27/18 01:30 03/27/18 02:00 Temperature Pulse Rate 112 H 115 H 115 H Respiratory Rate 20 19 19 Blood Pressure 114/70 127/66 121/75 Pulse Oximetry 100 100 100 03/27/18 02:30 03/27/18 03:00 03/27/18 03:30 Temperature Pulse Rate 115 H 101 H 101 H Respiratory Rate 22 16 16 Blood Pressure 120/79 118/75 113/70 Pulse Oximetry 100 100 100 03/27/18 03:31 03/27/18 04:00 03/27/18 04:13 Temperature 99.5 F Pulse Rate 101 H 103 H Respiratory Rate 16 19 18 Blood Pressure 118/76 Pulse Oximetry 100 100 03/27/18 04:30 03/27/18 05:00 03/27/18 05:30 Temperature Pulse Rate 106 H 108 H 108 H Respiratory Rate 23 20 20 Blood Pressure 123/83 117/77 121/80 Pulse Oximetry 100 100 100 03/27/18 06:00 03/27/18 06:30 03/27/18 07:18 Temperature Pulse Rate 107 H 109 H Respiratory Rate 22 20 22 Blood Pressure 123/79 126/82 Pulse Oximetry 100 100 100 03/27/18 07:21 03/27/18 08:00 03/27/18 10:00 Temperature 102.2 F H Pulse Rate 109 H 110 H 124 H Respiratory Rate 22 22 Blood Pressure 128/86 Pulse Oximetry 100 03/27/18 11:08 03/27/18 11:11 03/27/18 12:00 Temperature Pulse Rate 108 H 110 H Respiratory Rate 25 H 26 H 29 H Blood Pressure 115/73 Pulse Oximetry 100 100 Intake & Output 0703/27/18 03/27/18 18:59 06:59 18:59 Intake Total 1100 / 1100 1731 / 1731 100 / 100 Output Total 3050 / 3050 1575 / 1575 Balance -1950 / -1950 156 / 156 100 / 100 Weight 71.3 kg Intake: IV 450 / 450 910 / 910 100 / 100 Levaquin 750 mg Premix Inj 150 150 / 150 ML @ 100 mls/hr IV.SIG Q24H KARINA Rx#:[id number] Magnesium Sulfate 1 gm/D5W 100 100 / 100 100 / 100 ml Premix 100 ML @ 100 mls/hr IV.SIG Q1H KARINA Rx#:[id number] Magnesium Sulfate Inj 2 GM In 100 / 100 NS Inj 96 ML @ 50 mls/hr IV.SIG UNSCH PRN Rx#:[id number] Potassium Phosphate Inj 30 MMOL 260 / 260 In NS Inj 250 ML @ 42 mls/hr IV.SIG UNSCH PRN Rx#:[id number] Vancomycin Inj 1,000 MG In NS 250 / 250 500 / 500 Inj 250 ML @ 250 mls/hr IV.SIG Q12H K[facility] Rx#:[id number] Oral 0 / 0 Tube Feeding 450 / 450 421 / 421 Tube Irrigant 0 / 0 0 / 0 Water Bolus Amount 200 / 200 400 / 400 Output: Urine 650 / 650 Stool 0 / 0 Urine/Stool Mix 0 / 0 Urine Amount (Catheter) 2400 / 2400 1575 / 1575 Straight 2400 / 2400 1575 / 1575 Other: Date of Last Bowel Movement 03/26/18 03/26/18 03/26/18 # Emeses 0 # Oral Regurgitations 0 03/24/18 14:15 Bronchial - Bronchial Gram Stain - Final 03/24/18 14:15 Bronchial - Bronchial Bronchial Culture - Final Stenotrophomonas maltophilia 03/24/18 14:15 Bronchial Washings - Right Lower Lobe Fungal Smear - Final No fungal elements seen 03/24/18 14:15 Bronchial Washings - Right Lower Lobe Fungal Culture - Pending 03/24/18 14:15 Bronchial Washings - Right Lower Lobe Acid Fast Bacilli Smear - Final No acid fast bacilli seen 03/24/18 14:15 Bronchial Washings - Right Lower Lobe Mycobacterial Culture - Pending Lab - Hematology Results 03/26/18 03/27/18 03:00 05:04 WBC 8.5 6.5 RBC 3.23 L 3.00 L Hgb 9.8 L 9.2 L Hct 29.0 L 27.1 L MCV 89.8 90.4 MCH 30.5 30.7 MCHC 33.9 34.0 RDW 16.5 16.4 Plt Count 132 L 143 L MPV 8.1 8.7 Neut % (Auto) 75.0 H 74.0 H Lymph % (Auto) 18.1 18.1 Coles % (Auto) 6.5 7.0 Eos % (Auto) 0.2 0.6 Baso % (Auto) 0.2 0.3 Neut # (Auto) 6.4 4.8 Lymph # (Auto) 1.5 1.2 Coles # (Auto) 0.6 0.5 Eos # (Auto) 0.0 0.0 Baso # (Auto) 0.0 0.0 WBC Differential . . Differential Comment Auto diff final Auto diff final Lab - Chemistry Results 03/25/18 03/26/18 03/26/18 17:46 00:10 03:00 Sodium 139 Potassium 3.3 L Chloride 107 Carbon Dioxide 26.4 Anion Gap 6 BUN 10 Creatinine Less than 0.15 L Estimated GFR Greater than 89 POC Glucose 95 107 Random Glucose 113 H Calcium 6.6 L* Prot Corrected Calcium 7.8 L Phosphorus 2.1 L Magnesium 1.4 L Total Protein 4.8 L 03/26/18 03/26/18 03/26/18 05:20 11:26 17:55 Sodium Potassium Chloride Carbon Dioxide Anion Gap BUN Creatinine Estimated GFR POC Glucose 118 H 99 101 Random Glucose Calcium Prot Corrected Calcium Phosphorus Magnesium Total Protein 03/26/18 03/27/18 03/27/18 23:53 05:04 05:31 Sodium 138 Potassium 3.7 Chloride 106 Carbon Dioxide 27.6 Anion Gap 4 L BUN 17 Creatinine Less than 0.15 L Estimated GFR Greater than 89 POC Glucose 115 H 117 H Random Glucose 104 Calcium 7.1 L* Prot Corrected Calcium 8.4 L Phosphorus 2.4 L Magnesium 1.7 Total Protein 4.7 L 03/27/18 11:43 Sodium Potassium Chloride Carbon Dioxide Anion Gap BUN Creatinine Estimated GFR POC Glucose 130 H Random Glucose Calcium Prot Corrected Calcium Phosphorus Magnesium Total Protein Imaging: ITS Impressions Head CT 03/12/18 06:59 CONCLUSION: 1. No acute intracranial abnormality. 2. Minimal fluid in the mastoid air cells. Cervical Spine MRI 03/16/18 00:00 CONCLUSION: 1. Persistent abnormal signal in the cord extending from C4 down to T1. Much of this likely related to edema. The edema appears to extend over a smaller area on the current exam. There is a linear area of increased signal seen on the T1 and T2-weighted images at the left-sided cord at the C7-T1 level which may represent an area of focal hemorrhage within the cord. 2. Status post laminectomy with posterior fusion and hardware placed at the C4- T1 levels. 3. Prevertebral soft tissue swelling. 4. No focal fluid collection to suggest an abscess is seen. Head MRI 03/16/18 00:00 CONCLUSION: 1. There is a new area of nodular enhancement, abnormal FLAIR signal, and mild restricted diffusion at the baeza matter white matter junction in the left occipital lobe. 3 additional small areas of nodular enhancement measuring approximately 3 mm are also identified along the baeza matter surface in the left parietal high convexity. Etiology is nonspecific. Metastatic disease is one consideration but given the history infection is another consideration. Suggest attention to these areas at follow-up imaging. 2. Increased fluid in the mastoid air cells bilaterally. Abdomen X-Ray 03/21/18 00:00 CONCLUSION: Nasogastric or orogastric tube tip in distal stomach. Chest X-Ray 03/24/18 13:36 CONCLUSION: Placement of tracheostomy tube otherwise not significantly changed. Physical Exam: GENERAL: No acute distress. HEENT: Pupils reactive to light. No icterus. NECK: Supple. No swelling. LUNGS: Clear breath sounds. HEART: Regular S1 and S2. No murmurs, rubs or gallops. ABDOMEN: Soft, nontender. Normoactive bowel sounds. EXTREMITIES: No clubbing or cyanosis. Diffuse edema. 1+. SKIN: No rash. NEUROLOGIC: Unable to fully assess. Appears lethargic PSYCH: Unable to fully assess. Lines: PICC line without evidence of infection. Assessment and Plan - Plan IMPRESSION: ESBL E. coli bacteremia. Treated. ESBL E. coli UTI. Pneumonia due to stenotrophomonas. Acute respiratory failure. Status post cervical spine surgery. Brain lesions on MRI. 3 enhancing nodular lesions seen in the left parietal area. Recent subarachnoid hemorrhage. Fever with temperature now of 102. Recommendations: Continue Levaquin for Stenotrophomonas. Continue vancomycin. Temperature has improved after starting Vanco. She has brain lesion on MRI also, unsure if this may be infection. Obtain new blood cultures Send UA/culture if indicated Repeat sputum culture. Monitor temperature. Discussed with family and RN.
--- NOTE | 2018-03-27 20:52 | P.PNCC ---
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 she was sent to [facility] for procedural management of these. She was then transferred to [place] [facility] on 02/28. Please see the dictated hospitalist consult note on 02/28 on admission to [place] for a detailed record of the hospital course while at [facility]. Today, she was found to be very tachycardic in the 160s and hypotensive with sbp in the 70s. She was emergently transferred to the ICU after rapid response was called for evaluation and management of her hypotension. Of note, she did not have iv access. I met her on arrival to the ICU. I placed 2 18g piv. 12-lead EKG confirms sinus tachycardia. I due to the fast rate, I gave 6mg adenosine to slow it down diagnostically, and it slowed down temporarily to a HR in the 70s, confirming sinus rhythm. I performed bedside critical care echocardiography which demonstrates grossly preserve biventricular function. in particular, RV is decompressed and well-functioning. IVC is completely collapsable. no pericardial effusion. I gave her 3L NS bolus ivf which improved her SBP to 110s and decreased her HR to 110s. She is afebrile. stat CBC shows anemia (history of recent femoral artery pseudoaneurysm), CMP demonstrates elevated AST and Alk phos, elevated lactate at 3.7. Cr elevated above baseline. Patient denies any complaints to me. she is mostly venezuelan speaking, but communicates in basic Guatemalan. specifically denies chest pain, shortness of breath, fever/chills, nausea, vomiting, abdominal pain, constipation, diarrhea. I discussed with her family, she has been eating and drinking well even up to today. ROS otherwise negative. 03/02 Patient is awake lying in bed in TRAV. On room air oxygen. T:103.2 this morning She was hypotensive overnight initially placed on Neosyn now off pressor with BP 147/67 with MAP 96. 03/03 No events overnight. Seems more awake and alert this morning. T: 100.2 at midnight. BP and HR better ( 119/58 with MAP 83mmHg). On no pressors. BC from 03/01: E.coli ESBL 6/30: clinically improving. slightly tachycardic. on appropriate therapy for her ESBL e. coli. denies complaints. hemodynamically stable. on room air. 03/05: Patient developed worsening respiratory distress yesterday and required endotracheal intubation and was placed on mechanical ventilation. Hypotension overnight for which patient was started on phenylephrine. Developed A. fib with RVR and was started on amiodarone gtt. 03/06 Patient remains sedated and intubated. Tmax 101.6, On Amio drip. 03/07 Patient remains intubated off sedation. s/p transfusion 2u PRBC yesterday. Tolerating tube feeds. Afebrile. Off Amio drip. 03/08 Patient remains intubated. T:100.9 last night. 03/09 No events overnight. Tolerated CPAP for approx 4 hrs yesterday. Off sedation. Afebrile. 03/10 No events overnight T:100.1 at 4am, Awake, patient was on CPAP for short time yesterday and placed back on PRVC mode for low TV and tachycardia. 03/11 No events overnight. Tolerated CPAP x 4hrs yesterday. T:100.6 yesterday. On no sedation. 03/12 Patient was extubated yesterday reintubated last night for resp distress and AMS. Afebrile. On Diprivan infusion for sedation. 03/13: Remains intubated critical, remains encephalopathy unresponsive off sedation. Afebrile EEG showed significant encephalopathy no seizures. Right subclavian central line placed, remains on Luis-Synephrine to keep map above 65 03/14: Remains encephalopathy again unresponsive. Eyes are open but no tracking did not follow commands. Remains leukopenic. Weaned off Luis-Synephrine. Not tolerating CPAP due to low tidal volume 03/15: Continues to fail CPAP due to low tidal volume. IV Levaquin added yesterday by ID for stenotrophomonas in the sputum. Remains encephalopathic did not follow commands but eyes are spontaneously open. I have requested neurology consult today 03/16: T-max 100.1. Currently 99. EEG has been performed. Does not follow commands. Tube feeds at 30 cc an hour. Positive BM. 03/17 Patient remains intubated on Precedex drip but awake. 03/18 T-current 100.7. Tolerating tube feeds at goal. Arousable the ventilator and follows command. Left side is chronically weaker. Discussed with Dr. Gutierrez /neurology. Reviewed MRI brain. Recommended evaluation by neurosurgery for abnormal MRI C-spine. Patient's CT surgeon at [facility] is Dr. Ku [phone] 03/19: T-max 100.7. Currently 99. Tachycardic. Tolerated CPAP trial. On the ventilator currently. Positive BM yesterday. 03/20 Patient was on Diprivan and Precedex drip overnight now off sedation. Afebrile. 03/21: no improvements. has been intubated for 17 days, and failed extubation quickly 03/12. needs trach and peg for further progress. 03/22: Afebrile. Intubation day #18. Patient currently contemplating trach and PEG options. Currently off dexmedetomidine drip. 03/23: Afebrile. Plan for PEG tube today. Awake and alert and interactive on the ventilator. Tube feeds are currently off. 03/24: Afebrile. Status post PEG tube by Dr. Orellana 03/23. Plan for percutaneous tracheostomy Dr. Serrano at 10 AM today 03/24. Tachycardic. Will replace phosphorus and magnesium this a.m. 03/25: Status post tracheostomy 03/[address] Serrano. Currently on PSV trial. No new issues overnight. Tube feeds at goal. 03/26: Low-grade temperatures overnight. Tube feeds have been restarted. Will start on CPAP trials today. Subjective 03/27: T-max 102.2. Blood cultures have been drawn today. Tube feeds of been resumed. Has been new concern about new altered mental status. Opens eyes but not following commands. MRI brain/C-spine ordered tonight Objective Vital Signs / I&O: Vital Signs 03/26/18 21:00 03/26/18 21:30 03/26/18 22:00 Temperature Pulse Rate 110 H 106 H 107 H Respiratory Rate 20 20 21 Blood Pressure 116/79 108/77 106/73 Pulse Oximetry 100 100 100 03/26/18 22:30 03/26/18 23:00 03/26/18 23:30 Temperature Pulse Rate 107 H 110 H 108 H Respiratory Rate 19 Blood Pressure 107/74 139/93 H 114/76 Pulse Oximetry 100 100 100 03/27/18 00:00 03/27/18 00:15 03/27/18 00:30 Temperature 99.5 F Pulse Rate 110 H 110 H 110 H Respiratory Rate 22 25 H 22 Blood Pressure 106/71 110/66 Pulse Oximetry 100 100 100 03/27/18 01:00 03/27/18 01:30 03/27/18 02:00 Temperature Pulse Rate 112 H 115 H 115 H Respiratory Rate 20 19 19 Blood Pressure 114/70 127/66 121/75 Pulse Oximetry 100 100 100 03/27/18 02:30 03/27/18 03:00 03/27/18 03:30 Temperature Pulse Rate 115 H 101 H 101 H Respiratory Rate 22 16 16 Blood Pressure 120/79 118/75 113/70 Pulse Oximetry 100 100 100 03/27/18 03:31 03/27/18 04:00 03/27/18 04:13 Temperature 99.5 F Pulse Rate 101 H 103 H Respiratory Rate 16 19 18 Blood Pressure 118/76 Pulse Oximetry 100 100 03/27/18 04:30 03/27/18 05:00 03/27/18 05:30 Temperature Pulse Rate 106 H 108 H 108 H Respiratory Rate 23 20 20 Blood Pressure 123/83 117/77 121/80 Pulse Oximetry 100 100 100 03/27/18 06:00 03/27/18 06:30 03/27/18 07:18 Temperature Pulse Rate 107 H 109 H Respiratory Rate 22 20 22 Blood Pressure 123/79 126/82 Pulse Oximetry 100 100 100 03/27/18 07:21 03/27/18 08:00 03/27/18 10:00 Temperature 102.2 F H Pulse Rate 109 H 110 H 124 H Respiratory Rate 22 22 Blood Pressure 128/86 Pulse Oximetry 100 03/27/18 11:08 03/27/18 11:11 03/27/18 12:00 Temperature Pulse Rate 108 H 110 H Respiratory Rate 25 H 26 H 29 H Blood Pressure 115/73 Pulse Oximetry 100 100 03/27/18 14:00 03/27/18 15:04 03/27/18 15:06 Temperature Pulse Rate 107 H 99 H Respiratory Rate 16 16 Blood Pressure Pulse Oximetry 100 03/27/18 16:00 03/27/18 18:00 03/27/18 19:42 Temperature Pulse Rate 99 H 99 H 92 H Respiratory Rate 13 20 Blood Pressure 95/54 L Pulse Oximetry 100 100 Intake & Output 03/27/18 03/27/18 03/28/18 06:59 18:59 06:59 Intake Total 1731 / 1731 1087 / 1087 250 / 250 Output Total 1575 / 1575 2225 / 2225 Balance 156 / 156 -1138 / -1138 250 / 250 Weight 71.3 kg Intake: IV 910 / 910 350 / 350 250 / 250 Levaquin 750 mg Premix Inj 150 150 / 150 150 / 150 ML @ 100 mls/hr IV.SIG Q24H KARINA Rx#:[id number] Magnesium Sulfate 1 gm/D5W 100 200 / 200 ml Premix 100 ML @ 100 mls/hr IV.SIG Q1H KARINA Rx#:[id number] Potassium Phosphate Inj 30 MMOL 260 / 260 In NS Inj 250 ML @ 42 mls/hr IV.SIG UNSCH PRN Rx#:[id number] Vancomycin Inj 1,000 MG In NS 500 / 500 250 / 250 Inj 250 ML @ 250 mls/hr IV.SIG Q12H KARINA Rx#:[id number] Oral 0 / 0 Tube Feeding 421 / 421 537 / 537 Tube Irrigant 0 / 0 0 / 0 Water Bolus Amount 400 / 400 200 / 200 Output: Stool 0 / 0 Urine/Stool Mix 0 / 0 Urine Amount (Catheter) 1575 / 1575 2225 / 2225 Straight 1575 / 1575 2225 / 2225 Other: # Voids 0 Date of Last Bowel Movement 03/26/18 03/26/18 # Emeses 0 # Oral Regurgitations 0 Result Diagrams: 03/27/18 05:04 03/27/18 05:04 Other Results: Microbiology 03/24/18 14:15 Bronchial - Bronchial Gram Stain - Final 03/24/18 14:15 Bronchial - Bronchial Bronchial Culture - Final Stenotrophomonas maltophilia 03/24/18 14:15 Bronchial Washings - Right Lower Lobe Fungal Smear - Final No fungal elements seen 03/24/18 14:15 Bronchial Washings - Right Lower Lobe Acid Fast Bacilli Smear - Final No acid fast bacilli seen 03/16/18 19:40 Blood - Line Aerobic Blood Culture - Final No growth in 5 days 03/16/18 19:40 Blood - Line Anaerobic Blood Culture - Final No growth in 5 days 03/16/18 19:45 Blood - Line Aerobic Blood Culture - Final No growth in 5 days 03/16/18 19:45 Blood - Line Anaerobic Blood Culture - Final No growth in 5 days 03/16/18 15:28 Catheterized Urine Urine Culture - Final No growth in 48 hours 03/15/18 04:50 Sputum - Endotracheal Gram Stain - Final 03/15/18 04:50 Sputum - Endotracheal Sputum Culture - Final Stenotrophomonas maltophilia 03/12/18 00:46 Blood - Peripheral Aerobic Blood Culture - Final No growth in 5 days 03/12/18 00:46 Blood - Peripheral Anaerobic Blood Culture - Final No growth in 5 days 03/12/18 00:40 Blood - Peripheral Aerobic Blood Culture - Final No growth in 5 days 03/12/18 00:40 Blood - Peripheral Anaerobic Blood Culture - Final No growth in 5 days 03/15/18 23:15 Stool Stool Occult Blood (ABEBE) - Final Hemoccult negative 03/11/18 22:30 Sputum - Endotracheal Gram Stain - Final 03/11/18 22:30 Sputum - Endotracheal Sputum Culture - Final Stenotrophomonas maltophilia 03/09/18 19:21 Blood - Peripheral Aerobic Blood Culture - Final No growth in 5 days 03/09/18 19:21 Blood - Peripheral Anaerobic Blood Culture - Final No growth in 5 days 03/09/18 19:28 Blood - Peripheral Aerobic Blood Culture - Final No growth in 5 days 03/09/18 19:28 Blood - Peripheral Anaerobic Blood Culture - Final No growth in 5 days 03/08/18 11:00 Blood - Peripheral Aerobic Blood Culture - Final No growth in 5 days 03/08/18 11:00 Blood - Peripheral Anaerobic Blood Culture - Final No growth in 5 days 03/08/18 11:09 Blood - Peripheral Aerobic Blood Culture - Final No growth in 5 days 03/08/18 11:09 Blood - Peripheral Anaerobic Blood Culture - Final No growth in 5 days 03/09/18 16:45 Sputum - Endotracheal Gram Stain - Final 03/09/18 16:45 Sputum - Endotracheal Sputum Culture - Final Heavy growth normal respiratory ramesh 03/06/18 05:12 Blood - Peripheral Aerobic Blood Culture - Final Staphylococcus coag negative 03/06/18 05:12 Blood - Peripheral Anaerobic Blood Culture - Final Staphylococcus epidermidis 03/05/18 15:33 Blood - Peripheral Aerobic Blood Culture - Final No growth in 5 days 03/05/18 15:33 Blood - Peripheral Anaerobic Blood Culture - Final Escherichia coli ESBL positive 03/08/18 17:55 Catheterized Urine Urine Culture - Final No growth in 48 hours 03/07/18 16:00 Sputum - Endotracheal Gram Stain - Final 03/07/18 16:00 Sputum - Endotracheal Sputum Culture - Final Heavy growth normal respiratory ramesh 03/05/18 12:55 Blood - Peripheral Aerobic Blood Culture - Final Escherichia coli ESBL positive 03/05/18 12:55 Blood - Peripheral Anaerobic Blood Culture - Final Escherichia coli ESBL positive Imaging: Chest X-Ray 03/07/18 00:00 CONCLUSION: 1. Persistent left lower lobe consolidation and pleural effusion. 2. Interval resolution of diffuse infiltrates in the right lung and reduction in the infiltrates in the left upper lung. Chest X-Ray 03/09/18 08:51 CONCLUSION: 1. Interval removal of left subclavian central line. 2. Stable small left pleural effusion and associated airspace disease in the left lower lobe. 3. Continued improving aeration of the left upper lung zone. 4. Stable mild airspace disease in the right lower lung zone. Chest X-Ray 03/11/18 21:53 CONCLUSION: Basilar airspace disease and pleural effusions similar to March 09. Endotracheal tube tip just above raz. Head CT 03/12/18 06:59 CONCLUSION: 1. No acute intracranial abnormality. 2. Minimal fluid in the mastoid air cells. Chest X-Ray 03/12/18 21:40 CONCLUSION: Placement of a right central line with tip in right atrium. No pneumothorax. Chest X-Ray 03/14/18 06:00 CONCLUSION: 1. No significant interval change. 2. Stable tubes and lines. 3. Stable small bilateral pleural effusions and associated lower lung zone airspace disease. Chest X-Ray 03/15/18 06:00 CONCLUSION: 1. No significant interval change. 2. Stable tubes and lines. 3. Stable bilateral [id number] pleural effusions with associated lower lobe airspace disease. Cervical Spine MRI 03/16/18 00:00 CONCLUSION: 1. Persistent abnormal signal in the cord extending from C4 down to T1. Much of this likely related to edema. The edema appears to extend over a smaller area on the current exam. There is a linear area of increased signal seen on the T1 and T2-weighted images at the left-sided cord at the C7-T1 level which may represent an area of focal hemorrhage within the cord. 2. Status post laminectomy with posterior fusion and hardware placed at the C4- T1 levels. 3. Prevertebral soft tissue swelling. 4. No focal fluid collection to suggest an abscess is seen. Head MRI 03/16/18 00:00 CONCLUSION: 1. There is a new area of nodular enhancement, abnormal FLAIR signal, and mild restricted diffusion at the bazea matter white matter junction in the left occipital lobe. 3 additional small areas of nodular enhancement measuring approximately 3 mm are also identified along the baeza matter surface in the left parietal high convexity. Etiology is nonspecific. Metastatic disease is one consideration but given the history infection is another consideration. Suggest attention to these areas at follow-up imaging. 2. Increased fluid in the mastoid air cells bilaterally. Chest X-Ray 03/17/18 06:00 CONCLUSION: Better aeration of the lungs with bibasilar densities and small pleural effusions. Chest X-Ray 03/19/18 06:00 CONCLUSION: Endotracheal tube tip is engaged in the left mainstem bronchus. Retraction by couple of centimeters recommended. Otherwise stable chest Chest X-Ray 03/20/18 05:51 CONCLUSION: Endotracheal tube tip remains in left mainstem bronchus. This should be withdrawn about 3 cm. Bilateral mostly basilar airspace disease and small pleural effusions. Chest X-Ray 03/20/18 06:00 CONCLUSION: Endotracheal tube tip in left mainstem bronchus. Bilateral mostly basilar airspace disease and effusions similar to March 19. Abdomen X-Ray 03/21/18 00:00 CONCLUSION: Nasogastric or orogastric tube tip in distal stomach. Chest X-Ray 03/23/18 06:00 CONCLUSION: Endotracheal tube tip at raz. NG enters stomach. Right central line in superior vena cava. Bilateral airspace disease and pleural effusions similar to March 20. Chest X-Ray 03/24/18 06:00 CONCLUSION: No significant change bilateral parenchymal opacities and small pleural effusions. Endotracheal tube tip is close to the raz. Nasogastric tube has been removed Chest X-Ray 03/24/18 13:36 CONCLUSION: Placement of tracheostomy tube otherwise not significantly changed. Objective Remarks: GENERAL: Patient is 62 yo female patient currently on ventilator via tracheostomy resting in bed in no acute distress SKIN: Warm and dry. No rash. Sacral DTI HEAD: Normocephalic. EYES: No scleral icterus. No injection or drainage. NECK: Supple, trachea midline. No JVD or lymphadenopathy. Tracheostomy site is clean dry and intact. CARDIOVASCULAR: Tachycardic, RR. S1, S2. No S4. Without murmur RESPIRATORY: Breath sounds equal bilaterally. No accessory muscle use. Diminished in the bases bilaterally. GASTROINTESTINAL: Abdomen soft, non-tender, nondistended. Hypoactive bowel sounds appreciated. PEG tube site is clean dry and intact. MUSCULOSKELETAL: Trace bilateral lower extremity edema. NEURO: Arousable and today not follows commands with bilateral upper extremities. She is not answering questions today.. She is Bol[place]ian-speaking and can understand some Guatemalan phrases. Assessment and Plan - Assessment and Plan Plan: Neuro/Psych: History of C6 vertebral aneurysm and underwent a C4 through T1 posterior fusion resection of the C6 mass which was negative for malignancy with 90% of mass removed, just showing inflammation, and a C4 through 7 laminectomy on 02/03/2018. Severe metabolic encephalopathy Recent aneurysmal subarachnoid hemorrhage treated at [facility] in January 2018 History of left occipital subarachnoid hemorrhage February 15, 2018 Cord edema possible hemorrhage within the cord level C7 through T1 Off Precedex drip , monitor neuro status Repeat CT brain showed no acute abnormalities. EEG significant encephalopathy Seen by Dr. Newberry from [facility]- No further neurosurgical intervention anticipated at this point. MRI brain: previously noted subarachnoid hemorrhage overlying the occipital lobes has resolved. Tiny trace of residual hemorrhage in the posterior lateral ventricles. Stable chronic white matter changes. No new or acute intracranial process. Neurology consult requested Dr. Arellano/follow-up has followed EEG: Mod. encephalopathy MRI brain 03/16 : There is a new area of nodular enhancement, abnormal FLAIR signal, and mild restricted diffusion at the baeza matter white matter junction in the left occipital lobe. 3 additional small areas of nodular enhancement measuring approximately 3 mm are also identified along the baeza matter surface in the left parietal high convexity. Etiology is nonspecific. MRI cervical spine 03/16: Persistent abnormal signal in the cord extending from C4 down to T1. Much of this likely related to edema. The edema appears to extend over a smaller area on the current exam. There is a linear area of increased signal seen on the T1 and T2-weighted images at the left-sided cord at the C7-T1 level which may represent an area of focal hemorrhage within the cord. Status post laminectomy with posterior fusion and hardware placed at the C4-T1 levels. Prevertebral soft tissue swelling. No focal fluid collection to suggest an abscess. Currently on gabapentin 600 mg 3 times daily/home medication on hold for neuropathy pain Currently on cyclobenzaprine 5 mg every 8 hours. Hold secondary to AMS Schedule oxycodone 2.5 mg by tube every 6 hours for pain. Acetaminophen 650 every 6 hours as needed fever/pain 1 through 5 Tramadol 50 mg every 8 hours as needed pain 6 through 10 As needed morphine sulfate 2 milligrams every 3 hours as needed breakthrough pain C-collar has been removed/okayed by neurosurgery Her neurosurgeon is Dr. Ku [phone] MRI/6 brain/cervical spine today 03/27 Pulm: Acute hypoxemic respiratory failure-status post percutaneous tracheostomy tube placement by Dr. Serrano 03/24 HCAP Extubated and reintubated on 03/11, failing CPAP trials due to low tidal volumes. PRVC 16/500// Ventilator bundle Albuterol/ipratropium aerosols every 4 hours with albuterol aerosols every 2 hours. Dyspnea Daily CPAP trial CT pulmonary angiogram chest: No PE, minimal consolidative changes left base CV: A. fib/sinus tachycardia Septic shock- resolved. Hyperlipidemia Place on Lopressor 25mg Q6h Monitor HR and BP keep MAP>65mmHg. Pravachol 20mg daily for dyslipidemia - Elevated troponin, type II demand ischemia NSTEMI - Echo 03/06 EF 50-55% - Will not anticoagulate at this time given risk/benefit with recent head bleed Cortisol level: 41 Cards has followed Renal/FEN/: Urinary retention Hypophosphatemia Hypopotassemia Hypomagnesia Monitor renal function, electrolytes replacement per protocol. 30 mmol K-Phos, 3 g mag sulfate, 25 mEq potassium chloride. Continue oxybutynin 5 mg every 8 hours GI: Status post PEG tube 03/[address] Sutton Monitor LFT's, CT abd/pelvis without evidence of overt acute cholecystitis Tube feeds- Glucerna 1.5 with goal rate 50ml/hr have been resumed Lansoprazole for GI prophylaxis Docusate sodium/senna 1 tablet twice daily for bowel regimen consult GI for PEG. ID: Urinary tract infection ESBL E. coli bacteremia Pneumonia with Stenotrophomonas s/p Septic shock ID is following Continue with abx per ID (levofloxacin, vancomycin) 03/24 -bronchoscopy -gram-negative rods 03/16 -blood cultures 2 -negative 03/11, 03/15 sputum Stenotrophomonas 03/07: Sputum cx: NG 03/08, 03/09 BC: NGTD 03/06 BC Coag negative staph 03/05 BC: E.coli bacteremia 03/01 BC: E.coli ESBL 03/01 Urine cx: GNR Heme: Normocytic anemia Thrombocytopenia likely 2nd sepsis -Monitor CBC, s/p 2u PRBC 03/06 Heme is following- Dr. Miller Hep PLT ab negative FEN TIBC both low Transfuse one PRBC 03/18 MSKRheum Sacral deep tissue injury SLE positive History of RF - present on admission - does not appear grossly infected - likely not the source of infection - management per wound care nurse Endo: SSI if needed for glycemic control On levothyroxine 50mcg daily. TSH: 0.47 GI prophylaxis- On lansoprazole 30 mg daily DVT prophylaxis- SCD, hold Heparin Sq due to recent [facility]OO[facility] bleed in January ( MRI brain 01/29) and thrombocytopenia Lines: Right subclavian CVL. Discontinued 03/23 PICC placed 03/23 Level 2 follow-up
[2018-03-27 21:21] LABS: Bilirubin,Urine Negative (Negative); Clarity,Urine Clear (Clear); Color,Urine Straw (Yellw/Straw); Glucose,Urine (UA) Negative (Negative); Leukocyte Esterase,Urine Negative (Negative); Mucus,Urine Few /lpf (Occasional); Nitrite,Urine Negative (Negative); Specific Gravity,Urine 1.005 (1.002-1.035)
[2018-03-27] MEDS ORDERED: Gadobutrol PF 7.5 MMOL/7.5 ML Vial (for RAD) IV.SIG ONE (21:56)
--- NOTE | 2018-03-27 22:10 | MR ---
EXAM DATE: 03/27/2018 9:52 PM EDT AGE/SEX: 62 years / Female INDICATIONS: . History of C6 tumor removal 1 month ago CLINICAL DATA: This is the patient's initial encounter. Patient reports that signs and symptoms have been present for 1 week and indicates a pain score of Nonresponsive. MEDICAL/SURGICAL HISTORY: Hypertension. Hypothyroidism. Cervical vertebral anterior circulatio n aneurysm. Fusion, cervical. Bladder sling. [place] [facility] [place]2018. [facility] [place] CON[place] 03/16/2018. . TECHNIQUE: Multiplanar, multisequence MRI examination of the cervical spine was performed without co ntrast. FINDINGS: Vertebrae: The patient appears to be status post laminectomy at the C4-C7 levels. There are surgical hardware in the posterior elements of C4-T1. There is persistent prevertebral soft tissue swelling Alignment: Normal. Cord: There is a persistent well-defined oval area of signal abnormality seen in the cord at the C5- C6 level. This measures approximately 1.7 cm in length, 0.5 cm in AP dimension 0.6 cm in transverse d imension. There is more ill-defined increased signal seen in the cord at the C4 and C5 level above th e well-defined area and at the C7 region below the more well-defined area. This appearance appears un changed. There is some prominent fluid signal seen posterior to the cord at the C5 and C6 levels. The re is a questionable defect in the dura posteriorly seen at the C5-C6 level. This appearance is uncha nged. Post Fossa: The cerebellar tonsils are normal in position. There is increased signal within the mast oid air cells. C2-C3: The thecal sac has a normal configuration. There is no evidence of disc herniation or spinal canal stenosis. The neural foramina are patent bilaterally. C3-C4: The thecal sac has a normal configuration. There is no evidence of disc herniation or spinal canal stenosis. The neural foramina are patent bilaterally. C4-C5: The thecal sac has a normal configuration. There is no evidence of disc herniation or spinal canal stenosis. The neural foramina are patent bilaterally. C5-C6: The thecal sac has a normal configuration. There is no evidence of disc herniation or spinal canal stenosis. The neural foramina are patent bilaterally. C6-C7: The thecal sac has a normal configuration. There is no evidence of disc herniation or spinal canal stenosis. The neural foramina are patent bilaterally. C7-T1: No epidural impressions seen. CONCLUSION: 1. Persistent well-defined area of fluid signal in the cord at the C5-C6 level. There is more ill-de fined suspected edema within the cord at the C4-C7 levels. This appearance is unchanged when compared to the prior MRI examination. 2. Status post laminectomy at the C4-C7 levels with postsurgical hardware seen at the C4-T1 levels. 3. Prominence of the posterior epidural space at the C4-C6 levels with a possible dural defect poste riorly seen at the C5-C6 level. This appearance is unchanged. A small amount of fluid is seen to exte nd posterior to the suspected dural defect. 4. Persistent prevertebral soft tissue swelling. 1. Electronically signed by: Best Alston MD 03/27/2018 10:08 PM EDT
--- NOTE | 2018-03-27 22:19 | MR ---
EXAM DATE: 03/27/2018 9:58 PM EDT AGE/SEX: 62 years / Female INDICATIONS: Altered mental status. Abnormal prior MRI scan. CLINICAL DATA: This is the patient's initial encounter. Patient reports that signs and symptoms have been present for 1 week and indicates a pain score of Nonresponsive. MEDICAL/SURGICAL HISTORY: Hypertension. Hypothyroidism. Cervical vertebral anterior aneurysm. Fusion, cervical. Bladder sling sx. COMPARISON: [facility] – [place], [place] HEAD W & W/O CONTRAST, 03/16/2018. . TECHNIQUE: Multiplanar, multisequence examination of the brain was performed without and with 7 ml Ga davist (gadobutrol) contrast as a single exam dose. FINDINGS: Cerebrum: The ventricles are normal for age. There continues to be 2 small nodular areas of enhance ment in the left cerebral hemisphere. The larger mass measures 6 mm is seen in the left occipital lob e. There is a smaller 2 to 3 mm mass seen in the posterior left parietal lobe. These are unchanged. N ew lesions are not seen. No evidence of midline shift, hemorrhage or acute infarction. No extraaxial fluid collections are seen. The pituitary gland and suprasellar cistern are normal in configuration . White Matter: There are scattered small focal areas of increased signal seen in the cerebral white m atter. Posterior Fossa: The cerebellum and brainstem are intact. The 4th ventricle is midline. The cerebel lopontine angle is unremarkable. The cerebellar tonsils are normal in position. Diffusion Imaging: No focal areas of restricted diffusion are seen. No evidence of acute infarction . Extracranial: The visualized portions of the orbits and paranasal sinuses are unremarkable. Post Contrast: No abnormal areas of parenchymal or dural enhancement. No evidence of blood-brain ba rrier breakdown. There is increased signal seen in the mastoid air cells. CONCLUSION: 1. 2 small persistent enhancing lesions without significant mass effect or surrounding edema seen in the left occipital and left parietal lobe. These are unchanged. Multiple lesions raises the possibil ity of metastatic disease versus infection or underlying vascular malformations such as cavernous ang iomas. Significant mass effect or edema is not seen. 2. Scattered focal areas of demyelination the cerebral white matter. Electronically signed by: Best Alston MD 03/27/2018 10:18 PM EDT
[2018-03-28] MEDS: Oral Hygiene Kit OROPHARYNG SCH ×3 (03:22→15:11)
[2018-03-28] MEDS: Metoprolol Tartrate 25 MG Tablet PO SCH ×4 (03:22→20:40)
[2018-03-28] MEDS: Hypromellose 0.3% Opth Gel 10 GM Bottle EACH EYE SCH ×3 (03:22→18:17)
[2018-03-28 04:59] LABS: Baso % (Auto) 0.2 % (0.0-2.0); Eos % (Auto) 0.6 % (0.0-4.0); Hemoglobin 8.1 gm/dL (11.6-15.3); Lymph # (Auto) 0.7 th/mm3 (1.0-4.8); Mean Corpuscular HGB Conc 33.7 % (32.0-36.0); Mean Corpuscular Hemoglobin 30.4 pg (27.0-34.0); Mean Platelet Volume 8.3 fL (7.0-11.0); Mono # (Auto) 0.4 th/mm3 (0.0-0.9); Mono % (Auto) 7.5 % (0.0-8.0); Neut # (Auto) 4.1 th/mm3 (1.8-7.7); Neut % (Auto) 77.7 % (16.0-70.0); Platelet Count 139 th/mm3 (150-450); Red Blood Count 2.67 mil/mm3 (4.00-5.30); Red Cell Distribution Width 16.9 % (11.6-17.2); White Blood Count 5.3 th/mm3 (4.0-11.0)
[2018-03-28 05:13] LABS: Activated Partial Thrombo Time 26.9 sec (24.3-30.1); INR 1.1 Ratio; Prothrombin Time 11.2 sec (9.8-11.6)
[2018-03-28 05:40] LABS: Anion Gap 7 meq/L (5-15); Blood Urea Nitrogen 15 mg/dL (7-18); Calcium 6.9 mg/dL (8.5-10.1); Carbon Dioxide 27.1 meq/L (21.0-32.0); Chloride 107 meq/L (98-107); Glomerular Filtration Rate Greater Than 89 mL/min (>89); Glucose,Random 100 mg/dL (74-106); Magnesium 1.7 mg/dL (1.5-2.5); Phosphorus 3.7 mg/dL (2.5-4.9); Potassium 3.5 meq/L (3.5-5.1); Sodium 141 meq/L (136-145)
[2018-03-28 05:56] LABS: Total Protein 4.5 g/dL (6.4-8.2)
[2018-03-28] MEDS: Vancomycin Inj 1,000 MG in Sodium Chlor 0.9% Inj 250 ML IV.SIG SCH (06:12)
[2018-03-28] MEDS: Insulin NovoLIN Regular Correctional Sugar Inj SQ SCH ×3 (06:12→20:35)
[2018-03-28] MEDS: Levothyroxine 50 MCG Tablet PO SCH (06:12)
[2018-03-28] MEDS: Chlorhexidine 0.12% Oral Kit 15 ML UDC OROPHARYNG SCH ×2 (07:32→20:36)
[2018-03-28] MEDS: Heparin Central Flush 100 UNIT/ML 5 ML Vial IV.FLUSH SCH (08:20)
[2018-03-28] MEDS: Gabapentin 300 MG Capsule PO SCH ×3 (08:22→17:55)
[2018-03-28] MEDS: Heparin Central Flush 100 UNIT/ML 5 ML Vial IV.FLUSH PRN (08:23)
--- NOTE | 2018-03-28 13:12 | P.PNID ---
Subjective Remarks: Patient is on CPAP. Sleepy. No distress. Temperature down to normal. New sputum Gram stain has gram-negative lary. Blood culture has no growth in 1 day. Urinalysis culture not indicated. Sputum culture had Stenotrophomonas from 03/11/2018. post tracheostomy and PEG tube insertion 03/24/2018. Antibiotics: Vancomycin Levaquin. Lines: Right upper extremity PICC line. Past Medical History: Diabetes mellitus, hypertension, hypothyroidism, systemic lupus erythematosus, rheumatoid arthritis, anemia, recent subarachnoid hemorrhage, C6 mass resection, hysterectomy, bladder sling, appendectomy, C4-C7 laminectomy, C4-T1 posterior fusion. Allergies/Adverse Reactions: Allergies codeine Allergy (Intermediate, Verified 01/24/18 17:12) nitroglycerin Adverse Reaction (Severe, Verified 01/25/18 09:14) Nausea/Vomiting Objective Vital Signs 03/27/18 14:00 03/27/18 15:04 03/27/18 15:06 Temperature Pulse Rate 107 H 99 H Respiratory Rate 16 16 Blood Pressure Pulse Oximetry 100 03/27/18 16:00 03/27/18 16:30 03/27/18 17:00 Temperature Pulse Rate 99 H 101 H 100 H Respiratory Rate 13 0 L 12 Blood Pressure 95/54 L 95/57 L 99/59 L Pulse Oximetry 100 100 100 03/27/18 17:30 03/27/18 18:00 03/27/18 18:30 Temperature Pulse Rate 101 H 101 H 101 H Respiratory Rate 8 L 0 L 5 L Blood Pressure 103/65 98/65 L 100/63 Pulse Oximetry 100 100 100 03/27/18 19:00 03/27/18 19:30 03/27/18 19:42 Temperature Pulse Rate 99 H 99 H 92 H Respiratory Rate 8 L 0 L 20 Blood Pressure 104/63 100/64 Pulse Oximetry 100 100 100 03/27/18 20:00 03/27/18 20:30 03/27/18 21:52 Temperature Pulse Rate 102 H 99 H 106 H Respiratory Rate 12 14 Blood Pressure 103/73 102/72 Pulse Oximetry 100 100 03/27/18 22:00 03/27/18 22:03 03/27/18 22:30 Temperature Pulse Rate 103 H 104 H 107 H Respiratory Rate Blood Pressure 130/75 120/74 Pulse Oximetry 100 100 100 03/27/18 23:00 03/27/18 23:27 03/27/18 23:30 Temperature Pulse Rate 108 H 104 H 104 H Respiratory Rate 16 Blood Pressure 112/72 108/77 Pulse Oximetry 100 100 100 03/28/18 00:00 03/28/18 00:30 03/28/18 01:00 Temperature 97.6 F Pulse Rate 105 H 103 H 101 H Respiratory Rate 16 Blood Pressure 101/78 138/87 108/65 Pulse Oximetry 100 100 100 03/28/18 01:30 03/28/18 02:00 03/28/18 02:30 Temperature Pulse Rate 102 H 102 H 102 H Respiratory Rate Blood Pressure 98/66 L 90/60 L 90/57 L Pulse Oximetry 100 100 100 03/28/18 03:00 03/28/18 03:30 03/28/18 03:45 Temperature Pulse Rate 104 H 100 H 101 H Respiratory Rate 17 16 17 Blood Pressure 122/82 102/64 Pulse Oximetry 100 100 03/28/18 04:00 03/28/18 04:30 03/28/18 05:00 Temperature 98.6 F Pulse Rate 98 H 94 H 92 H Respiratory Rate 16 16 16 Blood Pressure 93/58 L 92/60 L 91/58 L Pulse Oximetry 100 100 100 03/28/18 05:30 03/28/18 06:00 03/28/18 06:04 Temperature Pulse Rate 96 H 95 H 91 H Respiratory Rate 16 16 20 Blood Pressure 86/53 L 79/50 L 103/68 Pulse Oximetry 100 100 98 03/28/18 06:30 03/28/18 07:00 03/28/18 07:01 Temperature Pulse Rate 93 H 89 90 Respiratory Rate 16 16 16 Blood Pressure 93/56 L 105/64 Pulse Oximetry 99 100 100 03/28/18 08:00 03/28/18 09:02 03/28/18 10:00 Temperature 98.2 F Pulse Rate 91 H 95 H 96 H Respiratory Rate 16 14 Blood Pressure 99/62 L Pulse Oximetry 100 100 03/28/18 12:02 Temperature Pulse Rate 99 H Respiratory Rate 12 Blood Pressure Pulse Oximetry Intake & Output 03/27/18 03/28/18 03/28/18 18:59 06:59 18:59 Intake Total 1087 / 1087 1064 / 1064 250 / 250 Output Total 2225 / 2225 1325 / 1325 Balance -1138 / -1138 -261 / -261 250 / 250 Weight 72 kg Intake: IV 350 / 350 510 / 510 250 / 250 Levaquin 750 mg Premix Inj 150 150 / 150 ML @ 100 mls/hr IV.SIG Q24H KARINA Rx#:[id number] Magnesium Sulfate 1 gm/D5W 100 200 / 200 ml Premix 100 ML @ 100 mls/hr IV.SIG Q1H KARINA Rx#:[id number] Sodium Phosphate Inj 30 MEQ In 260 / 260 NS Inj 250 ML @ 42 mls/hr IV. SIG UNSCH PRN Rx#:[id number] Vancomycin Inj 1,000 MG In NS 250 / 250 250 / 250 Inj 250 ML @ 250 mls/hr IV.SIG Q12H KARINA Rx#:[id number] Oral 0 / 0 Tube Feeding 537 / 537 254 / 254 Tube Irrigant 0 / 0 0 / 0 Water Bolus Amount 200 / 200 300 / 300 Output: Stool 0 / 0 Urine/Stool Mix 0 / 0 Urine Amount (Catheter) 2225 / 2225 1325 / 1325 Straight 2225 / 2225 1325 / 1325 Other: # Voids 0 Date of Last Bowel Movement 03/26/18 03/28/18 03/28/18 # Emeses 0 # Oral Regurgitations 0 03/27/18 19:45 Sputum - Tracheal Aspirate Gram Stain - Final 03/27/18 19:45 Sputum - Tracheal Aspirate Sputum Culture - Preliminary Immature growth - reincubate 03/27/18 14:25 Blood - Line Aerobic Blood Culture - Preliminary No growth in 1 day 03/27/18 14:25 Blood - Line Anaerobic Blood Culture - Preliminary No growth in 1 day 03/27/18 15:01 Blood - Line Aerobic Blood Culture - Preliminary No growth in 1 day 03/27/18 15:01 Blood - Line Anaerobic Blood Culture - Preliminary No growth in 1 day 03/24/18 14:15 Bronchial - Bronchial Gram Stain - Final 03/24/18 14:15 Bronchial - Bronchial Bronchial Culture - Final Stenotrophomonas maltophilia 03/24/18 14:15 Bronchial Washings - Right Lower Lobe Fungal Smear - Final No fungal elements seen 03/24/18 14:15 Bronchial Washings - Right Lower Lobe Fungal Culture - Pending 03/24/18 14:15 Bronchial Washings - Right Lower Lobe Acid Fast Bacilli Smear - Final No acid fast bacilli seen 03/24/18 14:15 Bronchial Washings - Right Lower Lobe Mycobacterial Culture - Pending Lab - Hematology Results 03/27/18 03/28/18 05:04 04:45 WBC 6.5 5.3 RBC 3.00 L 2.67 L Hgb 9.2 L 8.1 L Hct 27.1 L 24.0 L MCV 90.4 90.0 MCH 30.7 30.4 MCHC 34.0 33.7 RDW 16.4 16.9 Plt Count 143 L 139 L MPV 8.7 8.3 Neut % (Auto) 74.0 H 77.7 H Lymph % (Auto) 18.1 14.0 Gulf % (Auto) 7.0 7.5 Eos % (Auto) 0.6 0.6 Baso % (Auto) 0.3 0.2 Neut # (Auto) 4.8 4.1 Lymph # (Auto) 1.2 0.7 L Gulf # (Auto) 0.5 0.4 Eos # (Auto) 0.0 0.0 Baso # (Auto) 0.0 0.0 WBC Differential . . Differential Comment Auto diff final Auto diff final Lab - Chemistry Results 03/27/18 03/28/18 03/28/18 23:40 04:45 04:45 Sodium 141 Potassium 3.5 Chloride 107 Carbon Dioxide 27.1 Anion Gap 7 BUN 15 Creatinine Less than 0.15 L Estimated GFR Greater than 89 POC Glucose 95 Random Glucose 100 Calcium 6.9 L* Prot Corrected Calcium 8.3 L Phosphorus 3.7 D Magnesium 1.7 Ammonia 32 Total Protein 4.5 L 03/28/18 06:11 Sodium Potassium Chloride Carbon Dioxide Anion Gap BUN Creatinine Estimated GFR POC Glucose 110 Random Glucose Calcium Prot Corrected Calcium Phosphorus Magnesium Ammonia Total Protein Imaging: ITS Impressions Head CT 03/12/18 06:59 CONCLUSION: 1. No acute intracranial abnormality. 2. Minimal fluid in the mastoid air cells. Abdomen X-Ray 03/21/18 00:00 CONCLUSION: Nasogastric or orogastric tube tip in distal stomach. Chest X-Ray 03/24/18 13:36 CONCLUSION: Placement of tracheostomy tube otherwise not significantly changed. Cervical Spine MRI 03/27/18 00:00 CONCLUSION: 1. Persistent well-defined area of fluid signal in the cord at the C5-C6 level. There is more ill-defined suspected edema within the cord at the C4-C7 levels. This appearance is unchanged when compared to the prior MRI examination. 2. Status post laminectomy at the C4-C7 levels with postsurgical hardware seen at the C4-T1 levels. 3. Prominence of the posterior epidural space at the C4-C6 levels with a possible dural defect posteriorly seen at the C5-C6 level. This appearance is unchanged. A small amount of fluid is seen to extend posterior to the suspected dural defect. 4. Persistent prevertebral soft tissue swelling. Head MRI 03/27/18 00:00 CONCLUSION: 1. 2 small persistent enhancing lesions without significant mass effect or surrounding edema seen in the left occipital and left parietal lobe. These are unchanged. Multiple lesions raises the possibility of metastatic disease versus infection or underlying vascular malformations such as cavernous angiomas. Significant mass effect or edema is not seen. 2. Scattered focal areas of demyelination the cerebral white matter. Physical Exam: GENERAL: No acute distress. HEENT: Pupils reactive to light. No icterus. NECK: Supple. No swelling. LUNGS: Clear breath sounds. HEART: Regular S1 and S2. No murmurs, rubs or gallops. ABDOMEN: Soft, nontender. Normoactive bowel sounds. EXTREMITIES: No clubbing or cyanosis. Diffuse edema. 1+. SKIN: No rash. NEUROLOGIC: Unable to fully assess. Lethargic. PSYCH: Unable to fully assess. Lines: PICC line without evidence of infection. Assessment and Plan - Plan IMPRESSION: New fever. Sputum culture has gram-negative lary. Bronchoscopy culture has stenotrophomonas resistant to Levaquin. ESBL E. coli bacteremia. Treated and resolved.. ESBL E. coli UTI. Treated and resolved. Pneumonia due to stenotrophomonas. Acute respiratory failure. Post tracheostomy. Status post cervical spine surgery. Brain lesions on MRI. 3 enhancing nodular lesions seen in the left parietal area. Recent subarachnoid hemorrhage. Recommendations: Discontinue Levaquin. Begin Bactrim IV for Stenotrophomonas. Continue vancomycin. She has brain lesion on MRI also, unsure if this may be infection. Follow blood cultures Monitor the sputum culture. Monitor temperature. Discussed with .
[2018-03-28] MEDS ORDERED: Potassium Chloride 20 MEQ Pwd Pkt NG/OG ONE (13:14)
--- NOTE | 2018-03-28 13:19 | P.PNCC ---
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 she was sent to [facility] for procedural management of these. She was then transferred to [facility] on 02/28. Please see the dictated hospitalist consult note on 02/28 on admission to [facility] for a detailed record of the hospital course while at [facility]. Today, she was found to be very tachycardic in the 160s and hypotensive with sbp in the 70s. She was emergently transferred to the ICU after rapid response was called for evaluation and management of her hypotension. Of note, she did not have iv access. I met her on arrival to the ICU. I placed 2 18g piv. 12-lead EKG confirms sinus tachycardia. I due to the fast rate, I gave 6mg adenosine to slow it down diagnostically, and it slowed down temporarily to a HR in the 70s, confirming sinus rhythm. I performed bedside critical care echocardiography which demonstrates grossly preserve biventricular function. in particular, RV is decompressed and well-functioning. IVC is completely collapsable. no pericardial effusion. I gave her 3L NS bolus ivf which improved her SBP to 110s and decreased her HR to 110s. She is afebrile. stat CBC shows anemia (history of recent femoral artery pseudoaneurysm), CMP demonstrates elevated AST and Alk phos, elevated lactate at 3.7. Cr elevated above baseline. Patient denies any complaints to me. she is mostly namibian speaking, but communicates in basic Occitan. specifically denies chest pain, shortness of breath, fever/chills, nausea, vomiting, abdominal pain, constipation, diarrhea. I discussed with her family, she has been eating and drinking well even up to today. ROS otherwise negative. 03/02 Patient is awake lying in bed in TRAV. On room air oxygen. T:103.2 this morning She was hypotensive overnight initially placed on Neosyn now off pressor with BP 147/67 with MAP 96. 03/03 No events overnight. Seems more awake and alert this morning. T: 100.2 at midnight. BP and HR better ( 119/58 with MAP 83mmHg). On no pressors. BC from 03/01: E.coli ESBL 6/30: clinically improving. slightly tachycardic. on appropriate therapy for her ESBL e. coli. denies complaints. hemodynamically stable. on room air. 03/05: Patient developed worsening respiratory distress yesterday and required endotracheal intubation and was placed on mechanical ventilation. Hypotension overnight for which patient was started on phenylephrine. Developed A. fib with RVR and was started on amiodarone gtt. 03/06 Patient remains sedated and intubated. Tmax 101.6, On Amio drip. 03/07 Patient remains intubated off sedation. s/p transfusion 2u PRBC yesterday. Tolerating tube feeds. Afebrile. Off Amio drip. 03/08 Patient remains intubated. T:100.9 last night. 03/09 No events overnight. Tolerated CPAP for approx 4 hrs yesterday. Off sedation. Afebrile. 03/10 No events overnight T:100.1 at 4am, Awake, patient was on CPAP for short time yesterday and placed back on PRVC mode for low TV and tachycardia. 03/11 No events overnight. Tolerated CPAP x 4hrs yesterday. T:100.6 yesterday. On no sedation. 03/12 Patient was extubated yesterday reintubated last night for resp distress and AMS. Afebrile. On Diprivan infusion for sedation. 03/13: Remains intubated critical, remains encephalopathy unresponsive off sedation. Afebrile EEG showed significant encephalopathy no seizures. Right subclavian central line placed, remains on Luis-Synephrine to keep map above 65 03/14: Remains encephalopathy again unresponsive. Eyes are open but no tracking did not follow commands. Remains leukopenic. Weaned off Luis-Synephrine. Not tolerating CPAP due to low tidal volume 03/15: Continues to fail CPAP due to low tidal volume. IV Levaquin added yesterday by ID for stenotrophomonas in the sputum. Remains encephalopathic did not follow commands but eyes are spontaneously open. I have requested neurology consult today 03/16: T-max 100.1. Currently 99. EEG has been performed. Does not follow commands. Tube feeds at 30 cc an hour. Positive BM. 03/17 Patient remains intubated on Precedex drip but awake. 03/18 T-current 100.7. Tolerating tube feeds at goal. Arousable the ventilator and follows command. Left side is chronically weaker. Discussed with Dr. Gutierrez /neurology. Reviewed MRI brain. Recommended evaluation by neurosurgery for abnormal MRI C-spine. Patient's CT surgeon at [facility] is Dr. Ku [phone] 03/19: T-max 100.7. Currently 99. Tachycardic. Tolerated CPAP trial. On the ventilator currently. Positive BM yesterday. 03/20 Patient was on Diprivan and Precedex drip overnight now off sedation. Afebrile. 03/21: no improvements. has been intubated for 17 days, and failed extubation quickly 03/12. needs trach and peg for further progress. 03/22: Afebrile. Intubation day #18. Patient currently contemplating trach and PEG options. Currently off dexmedetomidine drip. 03/23: Afebrile. Plan for PEG tube today. Awake and alert and interactive on the ventilator. Tube feeds are currently off. 03/24: Afebrile. Status post PEG tube by Dr. Orellana 03/23. Plan for percutaneous tracheostomy Dr. Serrano at 10 AM today 03/24. Tachycardic. Will replace phosphorus and magnesium this a.m. 03/25: Status post tracheostomy 03/[address] Serrano. Currently on PSV trial. No new issues overnight. Tube feeds at goal. 03/26: Low-grade temperatures overnight. Tube feeds have been restarted. Will start on CPAP trials today. 03/27: T-max 102.2. Blood cultures have been drawn today. Tube feeds of been resumed. Has been new concern about new altered mental status. Opens eyes but not following commands. MRI brain/C-spine ordered tonight Subjective 03/28: Afebrile today. MRI brain revealed 3 left parietal lesion/stable. MRI C- spine without significant change. Opens mouth to command for temperature today. Slight movement of bilateral upper extremities. Objective Vital Signs / I&O: Vital Signs 03/27/18 14:00 03/27/18 15:04 03/27/18 15:06 Temperature Pulse Rate 107 H 99 H Respiratory Rate 16 16 Blood Pressure Pulse Oximetry 100 03/27/18 16:00 03/27/18 16:30 03/27/18 17:00 Temperature Pulse Rate 99 H 101 H 100 H Respiratory Rate 13 0 L 12 Blood Pressure 95/54 L 95/57 L 99/59 L Pulse Oximetry 100 100 100 03/27/18 17:30 03/27/18 18:00 03/27/18 18:30 Temperature Pulse Rate 101 H 101 H 101 H Respiratory Rate 8 L 0 L 5 L Blood Pressure 103/65 98/65 L 100/63 Pulse Oximetry 100 100 100 03/27/18 19:00 03/27/18 19:30 03/27/18 19:42 Temperature Pulse Rate 99 H 99 H 92 H Respiratory Rate 8 L 0 L 20 Blood Pressure 104/63 100/64 Pulse Oximetry 100 100 100 03/27/18 20:00 03/27/18 20:30 03/27/18 21:52 Temperature Pulse Rate 102 H 99 H 106 H Respiratory Rate 12 14 Blood Pressure 103/73 102/72 Pulse Oximetry 100 100 03/27/18 22:00 03/27/18 22:03 03/27/18 22:30 Temperature Pulse Rate 103 H 104 H 107 H Respiratory Rate Blood Pressure 130/75 120/74 Pulse Oximetry 100 100 100 03/27/18 23:00 03/27/18 23:27 03/27/18 23:30 Temperature Pulse Rate 108 H 104 H 104 H Respiratory Rate 16 Blood Pressure 112/72 108/77 Pulse Oximetry 100 100 100 03/28/18 00:00 03/28/18 00:30 03/28/18 01:00 Temperature 97.6 F Pulse Rate 105 H 103 H 101 H Respiratory Rate 16 Blood Pressure 101/78 138/87 108/65 Pulse Oximetry 100 100 100 03/28/18 01:30 03/28/18 02:00 03/28/18 02:30 Temperature Pulse Rate 102 H 102 H 102 H Respiratory Rate Blood Pressure 98/66 L 90/60 L 90/57 L Pulse Oximetry 100 100 100 03/28/18 03:00 03/28/18 03:30 03/28/18 03:45 Temperature Pulse Rate 104 H 100 H 101 H Respiratory Rate 17 16 17 Blood Pressure 122/82 102/64 Pulse Oximetry 100 100 03/28/18 04:00 03/28/18 04:30 03/28/18 05:00 Temperature 98.6 F Pulse Rate 98 H 94 H 92 H Respiratory Rate 16 16 16 Blood Pressure 93/58 L 92/60 L 91/58 L Pulse Oximetry 100 100 100 03/28/18 05:30 03/28/18 06:00 03/28/18 06:04 Temperature Pulse Rate 96 H 95 H 91 H Respiratory Rate 16 16 20 Blood Pressure 86/53 L 79/50 L 103/68 Pulse Oximetry 100 100 98 03/28/18 06:30 03/28/18 07:00 03/28/18 07:01 Temperature Pulse Rate 93 H 89 90 Respiratory Rate 16 16 16 Blood Pressure 93/56 L 105/64 Pulse Oximetry 99 100 100 03/28/18 08:00 03/28/18 09:02 03/28/18 10:00 Temperature 98.2 F Pulse Rate 91 H 95 H 96 H Respiratory Rate 16 14 Blood Pressure 99/62 L Pulse Oximetry 100 100 03/28/18 12:02 Temperature Pulse Rate 99 H Respiratory Rate 12 Blood Pressure Pulse Oximetry Intake & Output 03/27/18 03/28/18 03/28/18 18:59 06:59 18:59 Intake Total 1087 / 1087 1064 / 1064 250 / 250 Output Total 222 / 2225 1325 / 1325 Balance -1138 / -1138 -261 / -261 250 / 250 Weight 72 kg Intake: IV 350 / 350 510 / 510 250 / 250 Levaquin 750 mg Premix Inj 150 150 / 150 ML @ 100 mls/hr IV.SIG Q24H KARINA Rx#:[id number] Magnesium Sulfate 1 gm/D5W 100 200 / 200 ml Premix 100 ML @ 100 mls/hr IV.SIG Q1H KARINA Rx#:[id number] Sodium Phosphate Inj 30 MEQ In 260 / 260 NS Inj 250 ML @ 42 mls/hr IV. SIG UNSCH PRN Rx#:[id number] Vancomycin Inj 1,000 MG In NS 250 / 250 250 / 250 Inj 250 ML @ 250 mls/hr IV.SIG Q12H KARINA Rx#:[id number] Oral 0 / 0 Tube Feeding 537 / 537 254 / 254 Tube Irrigant 0 / 0 0 / 0 Water Bolus Amount 200 / 200 300 / 300 Output: Stool 0 / 0 Urine/Stool Mix 0 / 0 Urine Amount (Catheter) 222 / 2225 1325 / 1325 Straight 2224 / 2225 1325 / 1325 Other: # Voids 0 Date of Last Bowel Movement 03/26/18 03/28/1803/28/18 # Emeses 0 # Oral Regurgitations 0 Result Diagrams: 03/28/18 04:45 03/28/18 04:45 Other Results: Microbiology 03/27/18 19:45 Sputum - Tracheal Aspirate Gram Stain - Final 03/27/18 19:45 Sputum - Tracheal Aspirate Sputum Culture - Preliminary Immature growth - reincubate 03/27/18 14:25 Blood - Line Aerobic Blood Culture - Preliminary No growth in 1 day 03/27/18 14:25 Blood - Line Anaerobic Blood Culture - Preliminary No growth in 1 day 03/27/18 15:01 Blood - Line Aerobic Blood Culture - Preliminary No growth in 1 day 03/27/18 15:01 Blood - Line Anaerobic Blood Culture - Preliminary No growth in 1 day 03/24/18 14:15 Bronchial - Bronchial Gram Stain - Final 03/24/18 14:15 Bronchial - Bronchial Bronchial Culture - Final Stenotrophomonas maltophilia 03/24/18 14:15 Bronchial Washings - Right Lower Lobe Fungal Smear - Final No fungal elements seen 03/24/18 14:15 Bronchial Washings - Right Lower Lobe Acid Fast Bacilli Smear - Final No acid fast bacilli seen 03/16/18 19:40 Blood - Line Aerobic Blood Culture - Final No growth in 5 days 03/16/18 19:40 Blood - Line Anaerobic Blood Culture - Final No growth in 5 days 03/16/18 19:45 Blood - Line Aerobic Blood Culture - Final No growth in 5 days 03/16/18 19:45 Blood - Line Anaerobic Blood Culture - Final No growth in 5 days 03/16/18 15:28 Catheterized Urine Urine Culture - Final No growth in 48 hours 03/15/18 04:50 Sputum - Endotracheal Gram Stain - Final 03/15/18 04:50 Sputum - Endotracheal Sputum Culture - Final Stenotrophomonas maltophilia 03/12/18 00:46 Blood - Peripheral Aerobic Blood Culture - Final No growth in 5 days 03/12/18 00:46 Blood - Peripheral Anaerobic Blood Culture - Final No growth in 5 days 03/12/18 00:40 Blood - Peripheral Aerobic Blood Culture - Final No growth in 5 days 03/12/18 00:40 Blood - Peripheral Anaerobic Blood Culture - Final No growth in 5 days 03/15/18 23:15 Stool Stool Occult Blood (ABEBE) - Final Hemoccult negative 03/11/18 22:30 Sputum - Endotracheal Gram Stain - Final 03/11/18 22:30 Sputum - Endotracheal Sputum Culture - Final Stenotrophomonas maltophilia 03/09/18 19:21 Blood - Peripheral Aerobic Blood Culture - Final No growth in 5 days 03/09/18 19:21 Blood - Peripheral Anaerobic Blood Culture - Final No growth in 5 days 03/09/18 19:28 Blood - Peripheral Aerobic Blood Culture - Final No growth in 5 days 03/09/18 19:28 Blood - Peripheral Anaerobic Blood Culture - Final No growth in 5 days 03/08/18 11:00 Blood - Peripheral Aerobic Blood Culture - Final No growth in 5 days 03/08/18 11:00 Blood - Peripheral Anaerobic Blood Culture - Final No growth in 5 days 03/08/18 11:09 Blood - Peripheral Aerobic Blood Culture - Final No growth in 5 days 03/08/18 11:09 Blood - Peripheral Anaerobic Blood Culture - Final No growth in 5 days 03/09/18 16:45 Sputum - Endotracheal Gram Stain - Final 03/09/18 16:45 Sputum - Endotracheal Sputum Culture - Final Heavy growth normal respiratory ramesh 03/06/18 05:12 Blood - Peripheral Aerobic Blood Culture - Final Staphylococcus coag negative 03/06/18 05:12 Blood - Peripheral Anaerobic Blood Culture - Final Staphylococcus epidermidis 03/05/18 15:33 Blood - Peripheral Aerobic Blood Culture - Final No growth in 5 days 03/05/18 15:33 Blood - Peripheral Anaerobic Blood Culture - Final Escherichia coli ESBL positive 03/08/18 17:55 Catheterized Urine Urine Culture - Final No growth in 48 hours 03/07/18 16:00 Sputum - Endotracheal Gram Stain - Final 03/07/18 16:00 Sputum - Endotracheal Sputum Culture - Final Heavy growth normal respiratory ramesh 03/05/18 12:55 Blood - Peripheral Aerobic Blood Culture - Final Escherichia coli ESBL positive 03/05/18 12:55 Blood - Peripheral Anaerobic Blood Culture - Final Escherichia coli ESBL positive Imaging: Chest X-Ray 03/07/18 00:00 CONCLUSION: 1. Persistent left lower lobe consolidation and pleural effusion. 2. Interval resolution of diffuse infiltrates in the right lung and reduction in the infiltrates in the left upper lung. Chest X-Ray 03/09/18 08:51 CONCLUSION: 1. Interval removal of left subclavian central line. 2. Stable small left pleural effusion and associated airspace disease in the left lower lobe. 3. Continued improving aeration of the left upper lung zone. 4. Stable mild airspace disease in the right lower lung zone. Chest X-Ray 03/11/18 21:53 CONCLUSION: Basilar airspace disease and pleural effusions similar to March 09. Endotracheal tube tip just above raz. Head CT 03/12/18 06:59 CONCLUSION: 1. No acute intracranial abnormality. 2. Minimal fluid in the mastoid air cells. Chest X-Ray 03/12/18 21:40 CONCLUSION: Placement of a right central line with tip in right atrium. No pneumothorax. Chest X-Ray 03/14/18 06:00 CONCLUSION: 1. No significant interval change. 2. Stable tubes and lines. 3. Stable small bilateral pleural effusions and associated lower lung zone airspace disease. Chest X-Ray 03/15/18 06:00 CONCLUSION: 1. No significant interval change. 2. Stable tubes and lines. 3. Stable bilateral poida-os-wjdaewmb pleural effusions with associated lower lobe airspace disease. Cervical Spine MRI 03/16/18 00:00 CONCLUSION: 1. Persistent abnormal signal in the cord extending from C4 down to T1. Much of this likely related to edema. The edema appears to extend over a smaller area on the current exam. There is a linear area of increased signal seen on the T1 and T2-weighted images at the left-sided cord at the C7-T1 level which may represent an area of focal hemorrhage within the cord. 2. Status post laminectomy with posterior fusion and hardware placed at the C4- T1 levels. 3. Prevertebral soft tissue swelling. 4. No focal fluid collection to suggest an abscess is seen. Head MRI 03/16/18 00:00 CONCLUSION: 1. There is a new area of nodular enhancement, abnormal FLAIR signal, and mild restricted diffusion at the baeza matter white matter junction in the left occipital lobe. 3 additional small areas of nodular enhancement measuring approximately 3 mm are also identified along the baeza matter surface in the left parietal high convexity. Etiology is nonspecific. Metastatic disease is one consideration but given the history infection is another consideration. Suggest attention to these areas at follow-up imaging. 2. Increased fluid in the mastoid air cells bilaterally. Chest X-Ray 03/17/18 06:00 CONCLUSION: Better aeration of the lungs with bibasilar densities and small pleural effusions. Chest X-Ray 03/19/18 06:00 CONCLUSION: Endotracheal tube tip is engaged in the left mainstem bronchus. Retraction by couple of centimeters recommended. Otherwise stable chest Chest X-Ray 03/20/18 05:51 CONCLUSION: Endotracheal tube tip remains in left mainstem bronchus. This should be withdrawn about 3 cm. Bilateral mostly basilar airspace disease and small pleural effusions. Chest X-Ray 03/20/18 06:00 CONCLUSION: Endotracheal tube tip in left mainstem bronchus. Bilateral mostly basilar airspace disease and effusions similar to March 19. Abdomen X-Ray 03/21/18 00:00 CONCLUSION: Nasogastric or orogastric tube tip in distal stomach. Chest X-Ray 03/23/18 06:00 CONCLUSION: Endotracheal tube tip at raz. NG enters stomach. Right central line in superior vena cava. Bilateral airspace disease and pleural effusions similar to March 20. Chest X-Ray 03/24/18 06:00 CONCLUSION: No significant change bilateral parenchymal opacities and small pleural effusions. Endotracheal tube tip is close to the raz. Nasogastric tube has been removed Chest X-Ray 03/24/18 13:36 CONCLUSION: Placement of tracheostomy tube otherwise not significantly changed. Cervical Spine MRI 03/27/18 00:00 CONCLUSION: 1. Persistent well-defined area of fluid signal in the cord at the C5-C6 level. There is more ill-defined suspected edema within the cord at the C4-C7 levels. This appearance is unchanged when compared to the prior MRI examination. 2. Status post laminectomy at the C4-C7 levels with postsurgical hardware seen at the C4-T1 levels. 3. Prominence of the posterior epidural space at the C4-C6 levels with a possible dural defect posteriorly seen at the C5-C6 level. This appearance is unchanged. A small amount of fluid is seen to extend posterior to the suspected dural defect. 4. Persistent prevertebral soft tissue swelling. 1. Head MRI 03/27/18 00:00 CONCLUSION: 1. 2 small persistent enhancing lesions without significant mass effect or surrounding edema seen in the left occipital and left parietal lobe. These are unchanged. Multiple lesions raises the possibility of metastatic disease versus infection or underlying vascular malformations such as cavernous angiomas. Significant mass effect or edema is not seen. 2. Scattered focal areas of demyelination the cerebral white matter. Objective Remarks: GENERAL: Patient is 62 yo female patient currently on ventilator via tracheostomy resting in bed in no acute distress SKIN: Warm and dry. No rash. Sacral DTI HEAD: Normocephalic. EYES: No scleral icterus. No injection or drainage. NECK: Supple, trachea midline. No JVD or lymphadenopathy. Tracheostomy site is clean dry and intact. CARDIOVASCULAR: RRR. S1, S2. No S4. Without murmur RESPIRATORY: Breath sounds equal bilaterally. No accessory muscle use. Diminished in the bases bilaterally. GASTROINTESTINAL: Abdomen soft, non-tender, nondistended. Hypoactive bowel sounds appreciated. PEG tube site is clean dry and intact. MUSCULOSKELETAL: Trace bilateral lower extremity edema. NEURO: Arousable and today not follows commands with bilateral upper extremities. She is not answering questions today.. She is German-speaking and can understand some Occitan phrases. Assessment and Plan - Assessment and Plan Plan: Neuro/Psych: History of C6 vertebral aneurysm and underwent a C4 through T1 posterior fusion resection of the C6 mass which was negative for malignancy with 90% of mass removed, just showing inflammation, and a C4 through 7 laminectomy on 02/03/2018. Severe metabolic encephalopathy Recent aneurysmal subarachnoid hemorrhage treated at [facility] in January 2018 History of left occipital subarachnoid hemorrhage February 15, 2018 Cord edema possible hemorrhage within the cord level C7 through T1 Off Precedex drip , monitor neuro status Repeat CT brain showed no acute abnormalities. EEG significant encephalopathy Seen by Dr. Newberry from [facility]- No further neurosurgical intervention anticipated at this point. MRI brain: previously noted subarachnoid hemorrhage overlying the occipital lobes has resolved. Tiny trace of residual hemorrhage in the posterior lateral ventricles. Stable chronic white matter changes. No new or acute intracranial process. Neurology consult requested Dr. Arellano/follow-up has followed EEG: Mod. encephalopathy MRI brain 03/16 : There is a new area of nodular enhancement, abnormal FLAIR signal, and mild restricted diffusion at the baeza matter white matter junction in the left occipital lobe. 3 additional small areas of nodular enhancement measuring approximately 3 mm are also identified along the baeza matter surface in the left parietal high convexity. Etiology is nonspecific. MRI cervical spine 03/16: Persistent abnormal signal in the cord extending from C4 down to T1. Much of this likely related to edema. The edema appears to extend over a smaller area on the current exam. There is a linear area of increased signal seen on the T1 and T2-weighted images at the left-sided cord at the C7-T1 level which may represent an area of focal hemorrhage within the cord. Status post laminectomy with posterior fusion and hardware placed at the C4-T1 levels. Prevertebral soft tissue swelling. No focal fluid collection to suggest an abscess. Currently on gabapentin 600 mg 3 times daily/home medication on hold for neuropathy pain Currently on cyclobenzaprine 5 mg every 8 hours. Hold secondary to AMS Schedule oxycodone 2.5 mg by tube every 6 hours for pain. Acetaminophen 650 every 6 hours as needed fever/pain 1 through 5 Tramadol 50 mg every 8 hours as needed pain 6 through 10 As needed morphine sulfate 2 milligrams every 3 hours as needed breakthrough pain C-collar has been removed/okayed by neurosurgery Her neurosurgeon is Dr. Ku [phone] MRI/6 brain/cervical spine today 03/27 Pulm: Acute hypoxemic respiratory failure-status post percutaneous tracheostomy tube placement by Dr. Serrano 03/24 HCAP Extubated and reintubated on 03/11, failing CPAP trials due to low tidal volumes. PRVC 16/500/09/09/34 Ventilator bundle Albuterol/ipratropium aerosols every 4 hours with albuterol aerosols every 2 hours. Dyspnea Daily CPAP trial CT pulmonary angiogram chest: No PE, minimal consolidative changes left base CV: A. fib/sinus tachycardia Septic shock- resolved. Hyperlipidemia Place on Lopressor 25mg Q6h Monitor HR and BP keep MAP>65mmHg. Pravachol 20mg daily for dyslipidemia - Elevated troponin, type II demand ischemia NSTEMI - Echo 03/06 EF 50-55% - Will not anticoagulate at this time given risk/benefit with recent head bleed Cortisol level: 41 Cards has followed Renal/FEN/: Urinary retention Monitor renal function, electrolytes replacement per protocol. 40 milliequivalents KCl 1 now. Recheck in a.m. Continue oxybutynin 5 mg every 8 hours GI: Status post PEG tube 03/[address] Sutton Monitor LFT's, CT abd/pelvis without evidence of overt acute cholecystitis Tube feeds- Glucerna 1.5 with goal rate 50ml/hr have been resumed Lansoprazole for GI prophylaxis Docusate sodium/senna 1 tablet twice daily for bowel regimen consult GI for PEG. ID: Urinary tract infection ESBL E. coli bacteremia Pneumonia with Stenotrophomonas s/p Septic shock ID is following Continue with abx per ID (levofloxacin discontinued 03/28/trimethoprim/ sulfamethoxazole, vancomycin) 03/24 -bronchoscopy -gram-negative rods 03/16 -blood cultures 2 -negative 03/11, 03/15 sputum Stenotrophomonas 03/07: Sputum cx: NG 03/08, 03/09 BC: NGTD 03/06 BC Coag negative staph 03/05 BC: E.coli bacteremia 03/01 BC: E.coli ESBL 03/01 Urine cx: GNR Heme: Normocytic anemia Thrombocytopenia likely 2nd sepsis -Monitor CBC, s/p 2u PRBC 03/06 Heme is following- Dr. Miller Hep PLT ab negative FEN TIBC both low Transfuse one PRBC 03/18 MSKRheum Sacral deep tissue injury SLE positive History of RF - present on admission - does not appear grossly infected - likely not the source of infection - management per wound care nurse Endo: SSI if needed for glycemic control On levothyroxine 50mcg daily. TSH: 0.47 GI prophylaxis- On lansoprazole 30 mg daily DVT prophylaxis- SCD, hold Heparin Sq due to recent [employer] bleed in January ( MRI brain 01/29) and thrombocytopenia Lines: Right subclavian CVL. Discontinued 03/23 PICC placed 03/23 Level 2 follow-up
[2018-03-28] MEDS: Mag Sulf 1 gm/100 ml Premix 100 ML IV.SIG SCH ×2 (14:00→15:11)
[2018-03-28] MEDS: Collagenase Oint 30 GM Tube TOPICAL SCH (15:11)
[2018-03-28] MEDS: TRIMETHOPRIM IV.SIG SCH ×2 (15:58)
[2018-03-28] MEDS: WATER IV.SIG SCH ×2 (15:58)
[2018-03-28] MEDS: SULFAMETHOX IV.SIG SCH ×2 (15:58)
[2018-03-28] MEDS: DEXTROSE 5% IV.SIG SCH ×2 (15:58)
[2018-03-28] MEDS: Vancomycin Inj 1,250 MG in Sodium Chlor 0.9% Inj 250 ML IV.SIG SCH (17:56)
[2018-03-29] MEDS: Oral Hygiene Kit OROPHARYNG SCH ×4 (01:41→15:08)
[2018-03-29] MEDS: Metoprolol Tartrate 25 MG Tablet PO SCH ×4 (01:41→22:00)
[2018-03-29] MEDS: DEXTROSE 5% IV.SIG SCH ×4 (02:53→15:07)
[2018-03-29] MEDS: SULFAMETHOX IV.SIG SCH ×4 (02:53→15:07)
[2018-03-29] MEDS: TRIMETHOPRIM IV.SIG SCH ×4 (02:53→15:07)
[2018-03-29] MEDS: WATER IV.SIG SCH ×4 (02:53→15:07)
[2018-03-29] MEDS: Hypromellose 0.3% Opth Gel 10 GM Bottle EACH EYE SCH ×3 (02:55→22:01)
[2018-03-29 04:45] LABS: Anion Gap 6 meq/L (5-15); Blood Urea Nitrogen 15 mg/dL (7-18); Carbon Dioxide 27.2 meq/L (21.0-32.0); Chloride 105 meq/L (98-107); Glomerular Filtration Rate Greater Than 89 mL/min (>89); Glucose,Random 134 mg/dL (74-106); Potassium 4.2 meq/L (3.5-5.1); Sodium 138 meq/L (136-145)
[2018-03-29 04:53] LABS: Baso % (Auto) 0.4 % (0.0-2.0); Eos % (Auto) 0.7 % (0.0-4.0); Hematocrit 22.8 % (35.0-46.0); Hemoglobin 7.6 gm/dL (11.6-15.3); Lymph # (Auto) 0.8 th/mm3 (1.0-4.8); Lymph % (Auto) 15.6 % (9.0-44.0); Mean Corpuscular HGB Conc 33.4 % (32.0-36.0); Mean Corpuscular Hemoglobin 30.7 pg (27.0-34.0); Mean Corpuscular Volume 91.9 fL (80.0-100.0); Mean Platelet Volume 8.7 fL (7.0-11.0); Mono # (Auto) 0.4 th/mm3 (0.0-0.9); Neut # (Auto) 4.1 th/mm3 (1.8-7.7); Neut % (Auto) 76.3 % (16.0-70.0); Platelet Count 154 th/mm3 (150-450); Red Blood Count 2.48 mil/mm3 (4.00-5.30); Red Cell Distribution Width 16.5 % (11.6-17.2); White Blood Count 5.4 th/mm3 (4.0-11.0)
[2018-03-29 05:11] LABS: Total Protein 4.6 g/dL (6.4-8.2)
[2018-03-29] MEDS: Vancomycin Inj 1,250 MG in Sodium Chlor 0.9% Inj 250 ML IV.SIG SCH ×2 (05:16→18:00)
[2018-03-29] MEDS: Levothyroxine 50 MCG Tablet PO SCH (05:17)
[2018-03-29] MEDS: Gabapentin 300 MG Capsule PO SCH ×2 (09:04→15:05)
[2018-03-29] MEDS: Insulin NovoLIN Regular Correctional Sugar Inj SQ SCH ×2 (09:05→22:01)
[2018-03-29] MEDS: Chlorhexidine 0.12% Oral Kit 15 ML UDC OROPHARYNG SCH ×2 (09:06→22:03)
[2018-03-29] MEDS: Heparin Central Flush 100 UNIT/ML 5 ML Vial IV.FLUSH SCH (09:08)
--- NOTE | 2018-03-29 11:01 | P.PNPAL ---
Reason for Visit Reason for visit: a. To assist with evaluation and management of symptoms including: dyspnea; generalized weakness; pain b. To assist medical decision maker(s) with: better understanding of current medical conditions; weighing benefits/burdens of medical treatment options; making medical treatment decisions. . Subjective Subjective/Interval History: Pt is a 62 year old female admitted for weakness 01/24 and found to of SAH. Went to [facility] for c6 mass resect (results neg). Pt also has lupus nephritis. Was in [place] 02/27 then went back to the hospital with Blood ESBL and multiple complication. Pt intbated 03/11, Pt is s/p trach and peg. Since last visit. Patient has had fevers. There are concerns about new altered mental status. MRI of cervical spine show persistent signal in the cord at C5 -C6 level. More suspected edema with in the cord c4-c7. Head MRI show 2 small persistent enchancing lesions without significant mass effect or edema seen in left occipital and left paritel lobbe. Unsure if these are infections. There is scattered focal areas of dymyelination of the cerebral whtie matter. Fevers subsided the past 24 hours. Pt reportedly able to follow some commands and there is slight movement of bilateral ext. Sputum culture shoe stenotrophomonas. Hgb trending downward Pt open eyes but not engaging in my visit. Family/Friend Interactions: none at bedside. will continue attempts at contact. Advance Directives Living Will: Never completed Health Care Surrogate: Never completed Durable Power of Food Storeroom Clerk: Never completed Health Care Surrogate Name and Number: No written designation of health care surrogate Documented care wishes:: No written documentation of health care preferences/wishes. . Objective Vital Signs: Vital Signs 03/28/18 12:00 03/28/18 12:02 03/28/18 14:00 Temperature 98.3 F Pulse Rate 95 H 99 H 105 H Respiratory Rate 20 12 Blood Pressure 104/66 Pulse Oximetry 100 03/28/18 16:00 03/28/18 16:49 03/28/18 18:00 Temperature 99.8 F H Pulse Rate 98 H 103 H Respiratory Rate 20 19 Blood Pressure 98/61 L Pulse Oximetry 100 100 03/28/18 20:00 03/28/18 20:04 03/28/18 22:00 Temperature 99 F Pulse Rate 115 H 109 H 106 H Respiratory Rate 16 22 Blood Pressure 106/65 Pulse Oximetry 100 100 03/28/18 23:36 03/29/18 00:00 03/29/18 02:00 Temperature 99.3 F Pulse Rate 110 H 112 H 106 H Respiratory Rate 21 16 Blood Pressure 100/65 Pulse Oximetry 100 100 03/29/18 03:25 03/29/18 04:00 03/29/18 06:00 Temperature 99.2 F Pulse Rate 102 H 104 H 106 H Respiratory Rate 21 16 Blood Pressure 94/55 L Pulse Oximetry 100 100 03/29/18 08:11 Temperature Pulse Rate 110 H Respiratory Rate 24 Blood Pressure Pulse Oximetry 100 Intake & Output 03/28/18 03/29/18 03/29/18 18:59 06:59 18:59 Intake Total 1838.5 / 1838.5 1505 / 1505 785.5 / 785.5 Output Total 475 / 475 1600 / 1600 Balance 1363.5 / 1363.5 -95 / -95 785.5 / 785.5 Weight 72 kg Intake: IV 1135.5 / 1135.5 785.5 / 785.5 Magnesium Sulfate 1 gm/D5W 100 100 / 100 ml Premix 100 ML @ 100 mls/hr IV.SIG Q1H KARINA Rx#:[id number] Bactrim Inj 368 MG In D5W Inj 523 / 523 523 / 523 500 ML @ 348.667 mls/hr IV.SIG Q12H KARINA Rx#:[id number] Vancomycin Inj 1,000 MG In NS 250 / 250 Inj 250 ML @ 250 mls/hr IV.SIG Q12H KARINA Rx#:[id number] Vancomycin Inj 1,250 MG In NS 262.5 / 262.5 262.5 / 262.5 Inj 250 ML @ 250 mls/hr IV.SIG Q12H KARINA Rx#:[id number] Oral 0 / 0 0 / 0 Tube Feeding 503 / 503 555 / 555 Tube Irrigant 0 / 0 0 / 0 Water Bolus Amount 200 / 200 200 / 200 Other 750 / 750 Output: Urine 1600 / 1600 Stool 0 / 0 Urine/Stool Mix 0 / 0 Urine Amount (Catheter) 475 / 475 Straight 475 / 475 Other: # Voids 0 Date of Last Bowel Movement 03/28/18 03/28/18 # Bowel Movements 1 2 # Incontinent Bowel Movements 1 # Emeses 0 0 # Oral Regurgitations 0 0 Physical Exam: CONSTITUTIONAL/GENERAL: Thin, frail-appearing, weak appearing, lethargic, mechanically ventilated in a MICU bed. No obvious distress. Generalized edema. TUBES/LINES/DRAINS: Right subclavian line; peripheral IVs; soft wrist restraints; Coleman catheter. Tracheostomy SKIN: No jaundice, rashes, or lesions. Generalized edema in the extremities. No wounds seen anteriorly. Skin temperature appropriate. Not diaphoretic. NECK: Tracheostomy. CARDIOVASCULAR: Regular rate and rhythm without murmur. No JVD. Peripheral pulses weak.+ Significant generalized edema. RESPIRATORY/CHEST: Symmetric, unlabored respirations. Breath sounds equal bilaterally. Lungs are clear, diminished. GASTROINTESTINAL: Abdomen soft, non-tender, nondistended. No hepato-splenomegaly , or palpable masses. No guarding. Bowel sounds present. GENITOURINARY: Without palpable bladder distension. Coleman catheter in place. MUSCULOSKELETAL: Extremities without clubbing, cyanosis. Significant pitting edema in all extremities. No mottling. NEUROLOGICAL: Sedated. Lethargic. Opens eyes briefly to stimulation. follow some commands PSYCHIATRIC: Unable to assess due to level of responsiveness. . . Diagnostic Tests Laboratory: Laboratory Results - last 72 hr 03/26/18 03/26/18 03/26/18 11:26 17:55 23:53 WBC RBC Hgb Hct MCV MCH MCHC RDW Plt Count MPV Neut % (Auto) Lymph % (Auto) [place] % (Auto) Eos % (Auto) Baso % (Auto) Neut # (Auto) Lymph # (Auto) [place] # (Auto) Eos # (Auto) Baso # (Auto) WBC Differential Differential Comment PT INR APTT Sodium Potassium Chloride Carbon Dioxide Anion Gap BUN Creatinine Estimated GFR POC Glucose 99 101 115 H Random Glucose Calcium Prot Corrected Calcium Phosphorus Magnesium Ammonia Total Protein Urine Color Urine Clarity Urine pH Ur Specific Gove Urine Protein Urine Glucose (UA) Urine Ketones Urine Occult Blood Urine Nitrate Urine Bilirubin Urine Urobilinogen Ur Leukocyte Esterase Urine RBC Urine WBC Urine Mucus Micro UA Comment Urine Culture Comments Vancomycin Trough 03/27/18 03/27/18 03/27/18 05:04 05:04 05:31 WBC 6.5 RBC 3.00 L Hgb 9.2 L Hct 27.1 L MCV 90.4 MCH 30.7 MCHC 34.0 RDW 16.4 Plt Count 143 L MPV 8.7 Neut % (Auto) 74.0 H Lymph % (Auto) 18.1 [place] % (Auto) 7.0 Eos % (Auto) 0.6 Baso % (Auto) 0.3 Neut # (Auto) 4.8 Lymph # (Auto) 1.2 [place] # (Auto) 0.5 Eos # (Auto) 0.0 Baso # (Auto) 0.0 WBC Differential . Differential Comment Auto diff final PT INR APTT Sodium 138 Potassium 3.7 Chloride 106 Carbon Dioxide 27.6 Anion Gap 4 L BUN 17 Creatinine Less than 0.15 L Estimated GFR Greater than 89 POC Glucose 117 H Random Glucose 104 Calcium 7.1 L* Prot Corrected Calcium 8.4 L Phosphorus 2.4 L Magnesium 1.7 Ammonia Total Protein 4.7 L Urine Color Urine Clarity Urine pH Ur Specific Gove Urine Protein Urine Glucose (UA) Urine Ketones Urine Occult Blood Urine Nitrate Urine Bilirubin Urine Urobilinogen Ur Leukocyte Esterase Urine RBC Urine WBC Urine Mucus Micro UA Comment Urine Culture Comments Vancomycin Trough 03/27/18 03/27/18 03/27/18 11:43 17:35 17:59 WBC RBC Hgb Hct MCV MCH MCHC RDW Plt Count MPV Neut % (Auto) Lymph % (Auto) [place] % (Auto) Eos % (Auto) Baso % (Auto) Neut # (Auto) Lymph # (Auto) [place] # (Auto) Eos # (Auto) Baso # (Auto) WBC Differential Differential Comment PT INR APTT Sodium Potassium Chloride Carbon Dioxide Anion Gap BUN Creatinine Estimated GFR POC Glucose 130 H 102 Random Glucose Calcium Prot Corrected Calcium Phosphorus Magnesium Ammonia Total Protein Urine Color Urine Clarity Urine pH Ur Specific Gove Urine Protein Urine Glucose (UA) Urine Ketones Urine Occult Blood Urine Nitrate Urine Bilirubin Urine Urobilinogen Ur Leukocyte Esterase Urine RBC Urine WBC Urine Mucus Micro UA Comment Urine Culture Comments Vancomycin Trough 11.0 H 03/27/18 03/27/18 03/28/18 18:00 23:40 04:45 WBC 5.3 RBC 2.67 L Hgb 8.1 L Hct 24.0 L MCV 90.0 MCH 30.4 MCHC 33.7 RDW 16.9 Plt Count 139 L MPV 8.3 Neut % (Auto) 77.7 H Lymph % (Auto) 14.0 [place] % (Auto) 7.5 Eos % (Auto) 0.6 Baso % (Auto) 0.2 Neut # (Auto) 4.1 Lymph # (Auto) 0.7 L [place] # (Auto) 0.4 Eos # (Auto) 0.0 Baso # (Auto) 0.0 WBC Differential . Differential Comment Auto diff final PT INR APTT Sodium Potassium Chloride Carbon Dioxide Anion Gap BUN Creatinine Estimated GFR POC Glucose 95 Random Glucose Calcium Prot Corrected Calcium Phosphorus Magnesium Ammonia Total Protein Urine Color Straw Urine Clarity Clear Urine pH 7.0 Ur Specific Gove 1.005 Urine Protein Negative Urine Glucose (UA) Negative Urine Ketones Negative Urine Occult Blood Negative Urine Nitrate Negative Urine Bilirubin Negative Urine Urobilinogen Less than 2 Ur Leukocyte Esterase Negative Urine RBC Less than 1 Urine WBC 3 Urine Mucus Few H Micro UA Comment Cath-culture not ind Urine Culture Comments Cath-cult not ind Vancomycin Trough 03/28/18 03/28/18 03/28/18 04:45 04:45 04:45 WBC RBC Hgb Hct MCV MCH MCHC RDW Plt Count MPV Neut % (Auto) Lymph % (Auto) [place] % (Auto) Eos % (Auto) Baso % (Auto) Neut # (Auto) Lymph # (Auto) [place] # (Auto) Eos # (Auto) Baso # (Auto) WBC Differential Differential Comment PT 11.2 INR 1.1 APTT 26.9 Sodium 141 Potassium 3.5 Chloride 107 Carbon Dioxide 27.1 Anion Gap 7 BUN 15 Creatinine Less than 0.15 L Estimated GFR Greater than 89 POC Glucose Random Glucose 100 Calcium 6.9 L* Prot Corrected Calcium 8.3 L Phosphorus 3.7 D Magnesium 1.7 Ammonia 32 Total Protein 4.5 L Urine Color Urine Clarity Urine pH Ur Specific Gove Urine Protein Urine Glucose (UA) Urine Ketones Urine Occult Blood Urine Nitrate Urine Bilirubin Urine Urobilinogen Ur Leukocyte Esterase Urine RBC Urine WBC Urine Mucus Micro UA Comment Urine Culture Comments Vancomycin Trough 03/28/18 03/28/18 03/29/18 06:11 20:33 04:00 WBC 5.4 RBC 2.48 L Hgb 7.6 L Hct 22.8 L MCV 91.9 MCH 30.7 MCHC 33.4 RDW 16.5 Plt Count 154 MPV 8.7 Neut % (Auto) 76.3 H Lymph % (Auto) 15.6 [place] % (Auto) 7.0 Eos % (Auto) 0.7 Baso % (Auto) 0.4 Neut # (Auto) 4.1 Lymph # (Auto) 0.8 L [place] # (Auto) 0.4 Eos # (Auto) 0.0 Baso # (Auto) 0.0 WBC Differential . Differential Comment Auto diff final PT INR APTT Sodium Potassium Chloride Carbon Dioxide Anion Gap BUN Creatinine Estimated GFR POC Glucose 110 101 Random Glucose Calcium Prot Corrected Calcium Phosphorus Magnesium Ammonia Total Protein Urine Color Urine Clarity Urine pH Ur Specific [place]ove Urine Protein Urine Glucose (UA) Urine Ketones Urine Occult Blood Urine Nitrate Urine Bilirubin Urine Urobilinogen Ur Leukocyte Esterase Urine RBC Urine WBC Urine Mucus Micro UA Comment Urine Culture Comments Vancomycin Trough 03/29/18 03/29/18 04:00 04:00 WBC RBC Hgb Hct MCV MCH MCHC RDW Plt Count MPV Neut % (Auto) Lymph % (Auto) [place] % (Auto) Eos % (Auto) Baso % (Auto) Neut # (Auto) Lymph # (Auto) [place] # (Auto) Eos # (Auto) Baso # (Auto) WBC Differential Differential Comment PT INR APTT Sodium 138 Potassium 4.2 Chloride 105 Carbon Dioxide 27.2 Anion Gap 6 BUN 15 Creatinine Less than 0.15 L Estimated GFR Greater than 89 POC Glucose Random Glucose 134 H Calcium 7.0 L* Prot Corrected Calcium 8.4 L Phosphorus Magnesium Ammonia 23 Total Protein 4.6 L Urine Color Urine Clarity Urine pH Ur Specific [place]ove Urine Protein Urine Glucose (UA) Urine Ketones Urine Occult Blood Urine Nitrate Urine Bilirubin Urine Urobilinogen Ur Leukocyte Esterase Urine RBC Urine WBC Urine Mucus Micro UA Comment Urine Culture Comments Vancomycin Trough Result Diagrams: 03/29/18 04:00 03/29/18 04:00 Microbiology: Microbiology 03/27/18 19:45 Gram Stain - Final Sputum - Tracheal Aspirate Sputum Culture - Final Stenotrophomonas maltophilia 03/27/18 14:25 Aerobic Blood Culture - Preliminary Blood - Line No growth in 1 day Anaerobic Blood Culture - Preliminary No growth in 1 day 03/27/18 15:01 Aerobic Blood Culture - Preliminary Blood - Line No growth in 1 day Anaerobic Blood Culture - Preliminary No growth in 1 day 03/24/18 14:15 Gram Stain - Final Bronchial - Bronchial Bronchial Culture - Final Stenotrophomonas maltophilia 03/24/18 14:15 Fungal Smear - Final Bronchial Washings - Right Lower Lobe No fungal elements seen 03/24/18 14:15 Acid Fast Bacilli Smear - Final Bronchial Washings - Right Lower Lobe No acid fast bacilli seen Procedures: Intubation and mechanical ventilation PEG tube placement 03/23/18 Tracheostomy / Bronchoscopy 03/24/18 Assessment and Plan - Disease Oriented Problem List (1) Pancytopenia (2) Bacteremia (3) Rheumatoid arthritis (4) Subarachnoid hemorrhage (5) Thrombocytopenia (6) Anemia (7) Hypothyroidism (8) Diabetes mellitus (9) Lupus (systemic lupus erythematosus) (10) S/P laminectomy with spinal fusion Comment: for removal of benign tumor at [facility] 02/03/2018. 90% of tumor was removed. - Symptom Scale (1) Pain 0-10 Scale: Unable to quantify (2) Dyspnea 0-10 Scale: Unable to quantify (3) Generalized weakness 0-10 Scale: Unable to quantify Pertinent Non-Medical Issues: Psychosocial: Originally from [place]. Has lived in [place] since age 15 - - initially in [facility], and more recently in [place]. Patient is . Has 2 daughters --Lida lives in [place]; Sylvie lives in [place]. Spiritual: Patient alternates between Catholicism and protestantism. Appreciate gas desulfurizer visits. Legal: No advance directives. Ethical issues impacting care: Patient has periods of being awake and alert on the ventilator but has still not appeared to be capacitated to make her own health care decisions at least since 03/22/18 . Important Contacts: Teresa Willett (daughter) [phone] Dileep Willett (son in law) [phone] Asher (spouse) Lida (daughter) . Prognosis: Prognostication is challenging in this patient. She apparently began having significant weight loss and progressive generalized weakness dating back to April 2017. She was diagnosed with thyroid problems. There was also blood loss and thrombocytopenia. Patient also has lupus. She did seem to improve initially after her neurosurgery at [facility]. However she is quite debilitated. She seems to have had a new hemorrhage since her surgery. She developed septic shock after just a few days in rehab. It is unclear at this point what her neurologic recovery would look like. It is also unclear what is caused her thrombocytopenia and blood loss. Family reports that doctors at [facility] had wanted both a kidney biopsy and a bone marrow biopsy. The patient certainly has a long, hard, road ahead of her if she chooses aggressive care and due to her level of debility is likely to have complications along the way. . Code Status: Full Code Plan: == Code Status: FULL CODE. Family has opted for aggressive care including trach and PEG and at time of last conversation were wishing for full code status. == Decision Making: Patient has periods of being awake and alert but has not demonstrated the ability during those periods to have insight into her illness and to be able to weigh the benefits/burdens of treatment options. Therefore, she remains incapacitated. Proxy decision making falls to her spouse under [place] Statutes. At this time the spouse is consulting with the 2 daughters and son- in-law to help make medical decisions. == Goals of medical treatment: Family was hoping that patient would be awake and alert enough to make her own decisions. This has not happen. Family opted for a further trial of aggressive treatments including trach/PEG. Remains FULL CODE == Symptoms * Pain: Pain has been in the neck and back. Long history of arthritis pain impacting multiple joints from both lupus and rheumatoid arthritis. Patient also has other probable sources of discomfort including prolonged bedbound status; orotracheal intubation; orogastric intubation; vascular access line; restraints; urinary catheter and now from recent PEG and Trach. Most recent nursing pain scores are in 4-6 range. Needing at least 2 Tramadol 50 mg / day. * Dyspnea: Dyspnea appears adequately controlled by mechanical ventilation. No history of underlying respiratory problems. Possible pneumonia. May have some diaphragmatic weakness from spinal injury impacting her ability to wean off vent. Patient will probably need custodial vent management -- will likely end up at [facility] if funding available. * Encephalopathy: Has periods of wakefulness, but as noted above, does hot have cognitive abilities at this point to weigh benefits/burdens of treatment options and make her own health care decisions. == Infection: Continues to have low-grade fevers and a significant bandemia. Source is unclear. Neurosurgery and radiology has suggested that current MRI findings may be consistent with infection. 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 Source of this is unclear. Hematology and oncology have recommended a bone marrow biopsy. May want to consider getting this bone marrow biopsy sooner rather than waiting as it might impact prognostication of life expectancy and help family weigh continuing aggressive care vs comfort are. == Palliative care will continue to follow to assist with symptom management and to further clarify goals of medical treatment as the clinical course evolves. Attestation Attestation: To help prompt me to consider important information that might be impacting today's encounter and assessment, information from prior notes written by myself or my colleagues may have been "brought forward" into today's note. My signature on this note, however, is an attestation that I personally performed the exam, history, and/or decision-making noted today, and, unless otherwise indicated, the interactions with patient, family, and staff as well as the review of records all occurred today. I also attest that the listed assessment and stated plan reflect my best clinical judgment today based on the combination of historical information, prior notes, and today's exam/ interactions. When time spent is documented, it refers only to time spent today by the signer, or if indicated, combined time spent today by collaborating physician/nurse practitioner.
--- NOTE | 2018-03-29 13:36 | P.PNCC ---
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 she was sent to [facility] for procedural management of these. She was then transferred to [place] [facility] on 02/28. Please see the dictated hospitalist consult note on 02/28 on admission to [place] for a detailed record of the hospital course while at [facility]. Today, she was found to be very tachycardic in the 160s and hypotensive with sbp in the 70s. She was emergently transferred to the ICU after rapid response was called for evaluation and management of her hypotension. Of note, she did not have iv access. I met her on arrival to the ICU. I placed 2 18g piv. 12-lead EKG confirms sinus tachycardia. I due to the fast rate, I gave 6mg adenosine to slow it down diagnostically, and it slowed down temporarily to a HR in the 70s, confirming sinus rhythm. I performed bedside critical care echocardiography which demonstrates grossly preserve biventricular function. in particular, RV is decompressed and well-functioning. IVC is completely collapsable. no pericardial effusion. I gave her 3L NS bolus ivf which improved her SBP to 110s and decreased her HR to 110s. She is afebrile. stat CBC shows anemia (history of recent femoral artery pseudoaneurysm), CMP demonstrates elevated AST and Alk phos, elevated lactate at 3.7. Cr elevated above baseline. Patient denies any complaints to me. she is mostly haitian speaking, but communicates in basic [place]. specifically denies chest pain, shortness of breath, fever/chills, nausea, vomiting, abdominal pain, constipation, diarrhea. I discussed with her family, she has been eating and drinking well even up to today. ROS otherwise negative. 03/02 Patient is awake lying in bed in TRAV. On room air oxygen. T:103.2 this morning She was hypotensive overnight initially placed on Neosyn now off pressor with BP 147/67 with MAP 96. 03/03 No events overnight. Seems more awake and alert this morning. T: 100.2 at midnight. BP and HR better ( 119/58 with MAP 83mmHg). On no pressors. BC from 03/01: E.coli ESBL 6/30: clinically improving. slightly tachycardic. on appropriate therapy for her ESBL e. coli. denies complaints. hemodynamically stable. on room air. 03/05: Patient developed worsening respiratory distress yesterday and required endotracheal intubation and was placed on mechanical ventilation. Hypotension overnight for which patient was started on phenylephrine. Developed A. fib with RVR and was started on amiodarone gtt. 03/06 Patient remains sedated and intubated. Tmax 101.6, On Amio drip. 03/07 Patient remains intubated off sedation. s/p transfusion 2u PRBC yesterday. Tolerating tube feeds. Afebrile. Off Amio drip. 03/08 Patient remains intubated. T:100.9 last night. 03/09 No events overnight. Tolerated CPAP for approx 4 hrs yesterday. Off sedation. Afebrile. 03/10 No events overnight T:100.1 at 4am, Awake, patient was on CPAP for short time yesterday and placed back on PRVC mode for low TV and tachycardia. 03/11 No events overnight. Tolerated CPAP x 4hrs yesterday. T:100.6 yesterday. On no sedation. 03/12 Patient was extubated yesterday reintubated last night for resp distress and AMS. Afebrile. On Diprivan infusion for sedation. 03/13: Remains intubated critical, remains encephalopathy unresponsive off sedation. Afebrile EEG showed significant encephalopathy no seizures. Right subclavian central line placed, remains on Luis-Synephrine to keep map above 65 03/14: Remains encephalopathy again unresponsive. Eyes are open but no tracking did not follow commands. Remains leukopenic. Weaned off Luis-Synephrine. Not tolerating CPAP due to low tidal volume 03/15: Continues to fail CPAP due to low tidal volume. IV Levaquin added yesterday by ID for stenotrophomonas in the sputum. Remains encephalopathic did not follow commands but eyes are spontaneously open. I have requested neurology consult today 03/16: T-max 100.1. Currently 99. EEG has been performed. Does not follow commands. Tube feeds at 30 cc an hour. Positive BM. 03/17 Patient remains intubated on Precedex drip but awake. 03/18 T-current 100.7. Tolerating tube feeds at goal. Arousable the ventilator and follows command. Left side is chronically weaker. Discussed with Dr. Gutierrez /neurology. Reviewed MRI brain. Recommended evaluation by neurosurgery for abnormal MRI C-spine. Patient's CT surgeon at [facility] is Dr. Ku 03/19: T-max 100.7. Currently 99. Tachycardic. Tolerated CPAP trial. On the ventilator currently. Positive BM yesterday. 03/20 Patient was on Diprivan and Precedex drip overnight now off sedation. Afebrile. 03/21: no improvements. has been intubated for 17 days, and failed extubation quickly 03/12. needs trach and peg for further progress. 03/22: Afebrile. Intubation day #18. Patient currently contemplating trach and PEG options. Currently off dexmedetomidine drip. 03/23: Afebrile. Plan for PEG tube today. Awake and alert and interactive on the ventilator. Tube feeds are currently off. 03/24: Afebrile. Status post PEG tube by Dr. Orellana 03/23. Plan for percutaneous tracheostomy Dr. Serrano at 10 AM today 03/24. Tachycardic. Will replace phosphorus and magnesium this a.m. 03/25: Status post tracheostomy 03/[address] Serrano. Currently on PSV trial. No new issues overnight. Tube feeds at goal. 03/26: Low-grade temperatures overnight. Tube feeds have been restarted. Will start on CPAP trials today. 03/27: T-max 102.2. Blood cultures have been drawn today. Tube feeds of been resumed. Has been new concern about new altered mental status. Opens eyes but not following commands. MRI brain/C-spine ordered tonight 03/28: Afebrile today. MRI brain revealed 3 left parietal lesion/stable. MRI C- spine without significant change. Opens mouth to command for temperature today. Slight movement of bilateral upper extremities. Subjective 03/29: T-max 99.8. Currently afebrile. Slightly more interactive today. Tolerating tube feeds. Positive BM. Objective Vital Signs / I&O: Vital Signs 03/28/18 14:00 03/28/18 16:00 03/28/18 16:49 Temperature 99.8 F H Pulse Rate 105 H 98 H Respiratory Rate 20 19 Blood Pressure 98/61 L Pulse Oximetry 100 100 03/28/18 18:00 03/28/18 20:00 03/28/18 20:04 Temperature 99 F Pulse Rate 103 H 115 H 109 H Respiratory Rate 16 22 Blood Pressure 106/65 Pulse Oximetry 100 100 03/28/18 22:00 03/28/18 23:36 03/29/18 00:00 Temperature 99.3 F Pulse Rate 106 H 110 H 112 H Respiratory Rate 21 16 Blood Pressure 100/65 Pulse Oximetry 100 100 03/29/18 01:00 03/29/18 02:00 03/29/18 03:25 Temperature Pulse Rate 103 H 106 H 102 H Respiratory Rate 21 Blood Pressure Pulse Oximetry 100 03/29/18 04:00 03/29/18 06:00 03/29/18 08:00 Temperature 99.2 F Pulse Rate 104 H 106 H 111 H Respiratory Rate 16 Blood Pressure 94/55 L Pulse Oximetry 100 03/29/18 08:11 03/29/18 10:00 03/29/18 11:02 Temperature Pulse Rate 110 H 127 H Respiratory Rate 24 Blood Pressure Pulse Oximetry 100 100 03/29/18 12:00 Temperature Pulse Rate 109 H Respiratory Rate Blood Pressure Pulse Oximetry Intake & Output 03/28/18 03/29/18 03/29/18 18:59 06:59 18:59 Intake Total 1838.5 / 1838.5 1505 / 1505 785.5 / 785.5 Output Total 1725 / 1725 1600 / 1600 1875 / 1875 Balance 113.5 / 113.5 -95 / -95 -1089.5 / -1089.5 Weight 72 kg Intake: IV 1135.5 / 1135.5 785.5 / 785.5 Magnesium Sulfate 1 gm/D5W 100 100 / 100 ml Premix 100 ML @ 100 mls/hr IV.SIG Q1H KARINA Rx#:[id number] Bactrim Inj 368 MG In D5W Inj 523 / 523 523 / 523 500 ML @ 348.667 mls/hr IV.SIG Q12H KARINA Rx#:[id number] Vancomycin Inj 1,000 MG In NS 250 / 250 Inj 250 ML @ 250 mls/hr IV.SIG Q12H KARINA Rx#:[id number] Vancomycin Inj 1,250 MG In NS 262.5 / 262.5 262.5 / 262.5 Inj 250 ML @ 250 mls/hr IV.SIG Q12H KARINA Rx#:[id number] Oral 0 / 0 0 / 0 Tube Feeding 503 / 503 555 / 555 Tube Irrigant 0 / 0 0 / 0 Water Bolus Amount 200 / 200 200 / 200 Other 750 / 750 Output: Urine 1600 / 1600 Stool 0 / 0 Urine/Stool Mix 0 / 0 Urine Amount (Catheter) 1725 / 1725 1875 / 1875 Straight 1725 / 1725 1875 / 1875 Other: # Voids 0 Date of Last Bowel Movement 03/28/18 03/28/18 03/28/18 # Bowel Movements 1 2 # Incontinent Bowel Movements 1 # Emeses 0 0 # Oral Regurgitations 0 0 Result Diagrams: 03/29/18 04:00 03/29/18 04:00 Other Results: Microbiology 03/27/18 14:25 Blood - Line Aerobic Blood Culture - Preliminary No growth in 2 days 03/27/18 14:25 Blood - Line Anaerobic Blood Culture - Preliminary No growth in 2 days 03/27/18 15:01 Blood - Line Aerobic Blood Culture - Preliminary No growth in 2 days 03/27/18 15:01 Blood - Line Anaerobic Blood Culture - Preliminary No growth in 2 days 03/27/18 19:45 Sputum - Tracheal Aspirate Gram Stain - Final 03/27/18 19:45 Sputum - Tracheal Aspirate Sputum Culture - Final Stenotrophomonas maltophilia 03/24/18 14:15 Bronchial - Bronchial Gram Stain - Final 03/24/18 14:15 Bronchial - Bronchial Bronchial Culture - Final Stenotrophomonas maltophilia 03/24/18 14:15 Bronchial Washings - Right Lower Lobe Fungal Smear - Final No fungal elements seen 03/24/18 14:15 Bronchial Washings - Right Lower Lobe Acid Fast Bacilli Smear - Final No acid fast bacilli seen 03/16/18 19:40 Blood - Line Aerobic Blood Culture - Final No growth in 5 days 03/16/18 19:40 Blood - Line Anaerobic Blood Culture - Final No growth in 5 days 03/16/18 19:45 Blood - Line Aerobic Blood Culture - Final No growth in 5 days 03/16/18 19:45 Blood - Line Anaerobic Blood Culture - Final No growth in 5 days 03/16/18 15:28 Catheterized Urine Urine Culture - Final No growth in 48 hours 03/15/18 04:50 Sputum - Endotracheal Gram Stain - Final 03/15/18 04:50 Sputum - Endotracheal Sputum Culture - Final Stenotrophomonas maltophilia 03/12/18 00:46 Blood - Peripheral Aerobic Blood Culture - Final No growth in 5 days 03/12/18 00:46 Blood - Peripheral Anaerobic Blood Culture - Final No growth in 5 days 03/12/18 00:40 Blood - Peripheral Aerobic Blood Culture - Final No growth in 5 days 03/12/18 00:40 Blood - Peripheral Anaerobic Blood Culture - Final No growth in 5 days 03/15/18 23:15 Stool Stool Occult Blood (ABEBE) - Final Hemoccult negative 03/11/18 22:30 Sputum - Endotracheal Gram Stain - Final 03/11/18 22:30 Sputum - Endotracheal Sputum Culture - Final Stenotrophomonas maltophilia 03/09/18 19:21 Blood - Peripheral Aerobic Blood Culture - Final No growth in 5 days 03/09/18 19:21 Blood - Peripheral Anaerobic Blood Culture - Final No growth in 5 days 03/09/18 19:28 Blood - Peripheral Aerobic Blood Culture - Final No growth in 5 days 03/09/18 19:28 Blood - Peripheral Anaerobic Blood Culture - Final No growth in 5 days 03/08/18 11:00 Blood - Peripheral Aerobic Blood Culture - Final No growth in 5 days 03/08/18 11:00 Blood - Peripheral Anaerobic Blood Culture - Final No growth in 5 days 03/08/18 11:09 Blood - Peripheral Aerobic Blood Culture - Final No growth in 5 days 03/08/18 11:09 Blood - Peripheral Anaerobic Blood Culture - Final No growth in 5 days 03/09/18 16:45 Sputum - Endotracheal Gram Stain - Final 03/09/18 16:45 Sputum - Endotracheal Sputum Culture - Final Heavy growth normal respiratory ramesh 03/06/18 05:12 Blood - Peripheral Aerobic Blood Culture - Final Staphylococcus coag negative 03/06/18 05:12 Blood - Peripheral Anaerobic Blood Culture - Final Staphylococcus epidermidis 03/05/18 15:33 Blood - Peripheral Aerobic Blood Culture - Final No growth in 5 days 03/05/18 15:33 Blood - Peripheral Anaerobic Blood Culture - Final Escherichia coli ESBL positive 03/08/18 17:55 Catheterized Urine Urine Culture - Final No growth in 48 hours 03/07/18 16:00 Sputum - Endotracheal Gram Stain - Final 03/07/18 16:00 Sputum - Endotracheal Sputum Culture - Final Heavy growth normal respiratory ramesh 03/05/18 12:55 Blood - Peripheral Aerobic Blood Culture - Final Escherichia coli ESBL positive 03/05/18 12:55 Blood - Peripheral Anaerobic Blood Culture - Final Escherichia coli ESBL positive Imaging: Chest X-Ray 03/07/18 00:00 CONCLUSION: 1. Persistent left lower lobe consolidation and pleural effusion. 2. Interval resolution of diffuse infiltrates in the right lung and reduction in the infiltrates in the left upper lung. Chest X-Ray 03/09/18 08:51 CONCLUSION: 1. Interval removal of left subclavian central line. 2. Stable small left pleural effusion and associated airspace disease in the left lower lobe. 3. Continued improving aeration of the left upper lung zone. 4. Stable mild airspace disease in the right lower lung zone. Chest X-Ray 03/11/18 21:53 CONCLUSION: Basilar airspace disease and pleural effusions similar to March 09. Endotracheal tube tip just above raz. Head CT 03/12/18 06:59 CONCLUSION: 1. No acute intracranial abnormality. 2. Minimal fluid in the mastoid air cells. Chest X-Ray 03/12/18 21:40 CONCLUSION: Placement of a right central line with tip in right atrium. No pneumothorax. Chest X-Ray 03/14/18 06:00 CONCLUSION: 1. No significant interval change. 2. Stable tubes and lines. 3. Stable small bilateral pleural effusions and associated lower lung zone airspace disease. Chest X-Ray 03/15/18 06:00 CONCLUSION: 1. No significant interval change. 2. Stable tubes and lines. 3. Stable bilateral [id number] pleural effusions with associated lower lobe airspace disease. Cervical Spine MRI 03/16/18 00:00 CONCLUSION: 1. Persistent abnormal signal in the cord extending from C4 down to T1. Much of this likely related to edema. The edema appears to extend over a smaller area on the current exam. There is a linear area of increased signal seen on the T1 and T2-weighted images at the left-sided cord at the C7-T1 level which may represent an area of focal hemorrhage within the cord. 2. Status post laminectomy with posterior fusion and hardware placed at the C4- T1 levels. 3. Prevertebral soft tissue swelling. 4. No focal fluid collection to suggest an abscess is seen. Head MRI 03/16/18 00:00 CONCLUSION: 1. There is a new area of nodular enhancement, abnormal FLAIR signal, and mild restricted diffusion at the baeza matter white matter junction in the left occipital lobe. 3 additional small areas of nodular enhancement measuring approximately 3 mm are also identified along the baeza matter surface in the left parietal high convexity. Etiology is nonspecific. Metastatic disease is one consideration but given the history infection is another consideration. Suggest attention to these areas at follow-up imaging. 2. Increased fluid in the mastoid air cells bilaterally. Chest X-Ray 03/17/18 06:00 CONCLUSION: Better aeration of the lungs with bibasilar densities and small pleural effusions. Chest X-Ray 03/19/18 06:00 CONCLUSION: Endotracheal tube tip is engaged in the left mainstem bronchus. Retraction by couple of centimeters recommended. Otherwise stable chest Chest X-Ray 03/20/18 05:51 CONCLUSION: Endotracheal tube tip remains in left mainstem bronchus. This should be withdrawn about 3 cm. Bilateral mostly basilar airspace disease and small pleural effusions. Chest X-Ray 03/20/18 06:00 CONCLUSION: Endotracheal tube tip in left mainstem bronchus. Bilateral mostly basilar airspace disease and effusions similar to March 19. Abdomen X-Ray 03/21/18 00:00 CONCLUSION: Nasogastric or orogastric tube tip in distal stomach. Chest X-Ray 03/23/18 06:00 CONCLUSION: Endotracheal tube tip at raz. NG enters stomach. Right central line in superior vena cava. Bilateral airspace disease and pleural effusions similar to March 20. Chest X-Ray 03/24/18 06:00 CONCLUSION: No significant change bilateral parenchymal opacities and small pleural effusions. Endotracheal tube tip is close to the raz. Nasogastric tube has been removed Chest X-Ray 03/24/18 13:36 CONCLUSION: Placement of tracheostomy tube otherwise not significantly changed. Cervical Spine MRI 03/27/18 00:00 CONCLUSION: 1. Persistent well-defined area of fluid signal in the cord at the C5-C6 level. There is more ill-defined suspected edema within the cord at the C4-C7 levels. This appearance is unchanged when compared to the prior MRI examination. 2. Status post laminectomy at the C4-C7 levels with postsurgical hardware seen at the C4-T1 levels. 3. Prominence of the posterior epidural space at the C4-C6 levels with a possible dural defect posteriorly seen at the C5-C6 level. This appearance is unchanged. A small amount of fluid is seen to extend posterior to the suspected dural defect. 4. Persistent prevertebral soft tissue swelling. 1. Head MRI 03/27/18 00:00 CONCLUSION: 1. 2 small persistent enhancing lesions without significant mass effect or surrounding edema seen in the left occipital and left parietal lobe. These are unchanged. Multiple lesions raises the possibility of metastatic disease versus infection or underlying vascular malformations such as cavernous angiomas. Significant mass effect or edema is not seen. 2. Scattered focal areas of demyelination the cerebral white matter. Objective Remarks: GENERAL: Patient is 62 yo female patient currently on ventilator via tracheostomy resting in bed in no acute distress SKIN: Warm and dry. No rash. Sacral DTI HEAD: Normocephalic. EYES: No scleral icterus. No injection or drainage. NECK: Supple, trachea midline. No JVD or lymphadenopathy. #8 Shiley percutaneous tracheostomy site is clean dry and intact. CARDIOVASCULAR: Tachycardic, RR. S1, S2. No S4. Without murmur RESPIRATORY: Breath sounds equal bilaterally. No accessory muscle use. Diminished in the bases bilaterally. GASTROINTESTINAL: Abdomen soft, non-tender, nondistended. Hypoactive bowel sounds appreciated. PEG tube site is clean dry and intact. MUSCULOSKELETAL: Trace bilateral lower extremity edema. NEURO: Arousable and today not follows commands with bilateral upper extremities. She is not answering questions today.. She is Sets[place]-speaking and can understand some [place] phrases. Assessment and Plan - Assessment and Plan Plan: Neuro/Psych: History of C6 vertebral aneurysm and underwent a C4 through T1 posterior fusion resection of the C6 mass which was negative for malignancy with 90% of mass removed, just showing inflammation, and a C4 through 7 laminectomy on 02/03/2018. Severe metabolic encephalopathy Recent aneurysmal subarachnoid hemorrhage treated at [facility] in January 2018 History of left occipital subarachnoid hemorrhage February 15, 2018 Cord edema possible hemorrhage within the cord level C7 through T1 Off Precedex drip , monitor neuro status Repeat CT brain showed no acute abnormalities. EEG significant encephalopathy Seen by Dr. Newberry from [facility] – [place]- No further neurosurgical intervention anticipated at this point. MRI brain: previously noted subarachnoid hemorrhage overlying the occipital lobes has resolved. Tiny trace of residual hemorrhage in the posterior lateral ventricles. Stable chronic white matter changes. No new or acute intracranial process. Neurology consult requested Dr. Arellano/follow-up has followed EEG: Mod. encephalopathy MRI brain 03/16 : There is a new area of nodular enhancement, abnormal FLAIR signal, and mild restricted diffusion at the baeza matter white matter junction in the left occipital lobe. 3 additional small areas of nodular enhancement measuring approximately 3 mm are also identified along the baeza matter surface in the left parietal high convexity. Etiology is nonspecific. MRI cervical spine 03/16: Persistent abnormal signal in the cord extending from C4 down to T1. Much of this likely related to edema. The edema appears to extend over a smaller area on the current exam. There is a linear area of increased signal seen on the T1 and T2-weighted images at the left-sided cord at the C7-T1 level which may represent an area of focal hemorrhage within the cord. Status post laminectomy with posterior fusion and hardware placed at the C4-T1 levels. Prevertebral soft tissue swelling. No focal fluid collection to suggest an abscess. Currently on gabapentin 600 mg 3 times daily/home medication on hold for neuropathy pain Currently on cyclobenzaprine 5 mg every 8 hours. Hold secondary to AMS Schedule oxycodone 2.5 mg by tube every 6 hours as needed breakthrough pain Acetaminophen 650 every 6 hours as needed fever/pain 1 through 5 Tramadol 50 mg every 8 hours as needed pain 6 through 10 C-collar has been removed/okayed by neurosurgery Her neurosurgeon is Dr. Ku [phone] MRI brain 03/27 - small persistent enhancing lesions without significant mass effect or surrounding edema seen in the left occipital and left parietal lobe. These are unchanged. Multiple lesions raises the possibility of metastatic disease versus infection or underlying vascular malformations such as cavernous angiomas. Significant mass effect or edema is not seen. Scattered focal areas of demyelination the cerebral white mattercervical spine 03/27 revealed MRI c spine - 03/27. Persistent well-defined area of fluid signal in the cord at the C5-C6 level. There is more ill-defined suspected edema within the cord at the C4-C7 levels. This appearance is unchanged when compared to the prior MRI examination. Status post laminectomy at the C4-C7 levels with postsurgical hardware seen at the C4-T1 levels. Prominence of the posterior epidural space at the C4-C6 levels with a possible dural defect posteriorly seen at the C5-C6 level. This appearance is unchanged. A small amount of fluid is seen to extend posterior to the suspected dural defect. Persistent prevertebral soft tissue swelling Pulm: Acute hypoxemic respiratory failure-status post percutaneous tracheostomy tube placement by Dr. Serrano 03/24 HCAP Extubated and reintubated on 03/11, failing CPAP trials due to low tidal volumes. PRVC 16/500/1//35 Ventilator bundle Albuterol/ipratropium aerosols every 4 hours with albuterol aerosols every 2 hours. Dyspnea Daily CPAP trial CT pulmonary angiogram chest: No PE, minimal consolidative changes left base CV: A. fib/sinus tachycardia Septic shock- resolved. Hyperlipidemia Place on Lopressor 25mg Q6h Monitor HR and BP keep MAP>65mmHg. Pravachol 20mg daily for dyslipidemia - Elevated troponin, type II demand ischemia NSTEMI - Echo 03/06 EF 50-55% - Will not anticoagulate at this time given risk/benefit with recent head bleed Cortisol level: 41 Cards has followed Renal/FEN/: Urinary retention Monitor renal function, electrolytes replacement per protocol. 40 milliequivalents KCl 1 now. Recheck in a.m. Continue oxybutynin 5 mg every 8 hours GI: Status post PEG tube 03/[address] Sutton Monitor LFT's, CT abd/pelvis without evidence of overt acute cholecystitis Tube feeds- Glucerna 1.5 with goal rate 50ml/hr have been resumed Lansoprazole for GI prophylaxis Docusate sodium/senna 1 tablet twice daily for bowel regimen ID: Urinary tract infection ESBL E. coli bacteremia Pneumonia with Stenotrophomonas s/p Septic shock ID is following Continue with abx per ID (/trimethoprim/sulfamethoxazole, vancomycin) levofloxacin discontinued 03/28 03/24 -bronchoscopy -Stenotrophomonas 03/16 -blood cultures 2 -negative 03/11, 03/15 sputum Stenotrophomonas 03/07: Sputum cx: NG 03/08, 03/09 BC: NGTD 03/06 BC Coag negative staph 03/05 BC: E.coli bacteremia 03/01 BC: E.coli ESBL 03/01 Urine cx: GNR Heme: Normocytic anemia -Monitor CBC, s/p 2u PRBC 03/06 Heme is following- Dr. Miller Hep PLT ab negative FEN TIBC both low Transfuse one PRBC 03/18 MSKRheum Sacral deep tissue injury SLE positive History of RF - present on admission - does not appear grossly infected - likely not the source of infection - management per wound care nurse Endo: SSI if needed for glycemic control On levothyroxine 50mcg daily. TSH: 0.47 GI prophylaxis- On lansoprazole 30 mg daily DVT prophylaxis- SCD, hold Heparin Sq due to recent [employer] bleed in January ( MRI brain 01/29) along with likely current blood at site of C-spine surgery 02/20 Lines: Right subclavian CVL. Discontinued 03/23 PICC right upper extremity placed 03/23 Level 2 follow-up
--- NOTE | 2018-03-29 14:45 | P.PNID ---
Subjective Remarks: Patient is on CPAP. Very awake and alert. No distress. Follows commands. Not moving left side. Afebrile. Blood culture has no growth. Had diarrhea. Stool c. dif negative. Sputum culture had Stenotrophomonas from 03/11/2018, 03/27/18. post tracheostomy and PEG tube insertion 03/24/2018. Antibiotics: Vancomycin Bactrim. Lines: Right upper extremity PICC line. Past Medical History: Diabetes mellitus, hypertension, hypothyroidism, systemic lupus erythematosus, rheumatoid arthritis, anemia, recent subarachnoid hemorrhage, C6 mass resection, hysterectomy, bladder sling, appendectomy, C4-C7 laminectomy, C4-T1 posterior fusion. Allergies/Adverse Reactions: Allergies codeine Allergy (Intermediate, Verified 01/24/18 17:12) nitroglycerin Adverse Reaction (Severe, Verified 01/25/18 09:14) Nausea/Vomiting Objective Vital Signs 03/28/18 16:00 03/28/18 16:49 03/28/18 18:00 Temperature 99.8 F H Pulse Rate 98 H 103 H Respiratory Rate 20 19 Blood Pressure 98/61 L Pulse Oximetry 100 100 03/28/18 20:00 03/28/18 20:04 03/28/18 22:00 Temperature 99 F Pulse Rate 115 H 109 H 106 H Respiratory Rate 16 22 Blood Pressure 106/65 Pulse Oximetry 100 100 03/28/18 23:36 03/29/18 00:00 03/29/18 01:00 Temperature 99.3 F Pulse Rate 110 H 112 H 103 H Respiratory Rate 21 16 Blood Pressure 100/65 Pulse Oximetry 100 100 03/29/18 02:00 03/29/18 03:25 03/29/18 04:00 Temperature 99.2 F Pulse Rate 106 H 102 H 104 H Respiratory Rate 21 16 Blood Pressure 94/55 L Pulse Oximetry 100 100 03/29/18 06:00 03/29/18 08:00 03/29/18 08:11 Temperature Pulse Rate 106 H 111 H 110 H Respiratory Rate 24 Blood Pressure Pulse Oximetry 100 03/29/18 10:00 03/29/18 11:02 03/29/18 12:00 Temperature Pulse Rate 127 H 109 H Respiratory Rate Blood Pressure Pulse Oximetry 100 Intake & Output 03/28/18 03/29/18 03/29/18 18:59 06:59 18:59 Intake Total 1838.5 / 1838.5 1505 / 1505 785.5 / 785.5 Output Total 1725 / 1725 1600 / 1600 1875 / 1875 Balance 113.5 / 113.5 -95 / -95 -1089.5 / -1089.5 Weight 72 kg Intake: IV 1135.5 / 1135.5 785.5 / 785.5 Magnesium Sulfate 1 gm/D5W 100 100 / 100 ml Premix 100 ML @ 100 mls/hr IV.SIG Q1H [facility] Rx#:[id number] Bactrim Inj 368 MG In D5W Inj 523 / 523 523 / 523 500 ML @ 348.667 mls/hr IV.SIG Q12H [facility] Rx#:[id number] Vancomycin Inj 1,000 MG In NS 250 / 250 Inj 250 ML @ 250 mls/hr IV.SIG Q12H [facility] Rx#:[id number] Vancomycin Inj 1,250 MG In NS 262.5 / 262.5 262.5 / 262.5 Inj 250 ML @ 250 mls/hr IV.SIG Q12H [facility] Rx#:[id number] Oral 0 / 0 0 / 0 Tube Feeding 503 / 503 555 / 555 Tube Irrigant 0 / 0 0 / 0 Water Bolus Amount 200 / 200 200 / 200 Other 750 / 750 Output: Urine 1600 / 1600 Stool 0 / 0 Urine/Stool Mix 0 / 0 Urine Amount (Catheter) 1725 / 1725 187 / 1875 Straight 1725 / 1725 187 / 187 Other: # Voids 0 Date of Last Bowel Movement 03/28/18 03/28/18 03/28/18 # Bowel Movements 1 2 # Incontinent Bowel Movements 1 # Emeses 0 0 # Oral Regurgitations 0 0 03/27/18 14:25 Blood - Line Aerobic Blood Culture - Preliminary No growth in 2 days 03/27/18 14:25 Blood - Line Anaerobic Blood Culture - Preliminary No growth in 2 days 03/27/18 15:01 Blood - Line Aerobic Blood Culture - Preliminary No growth in 2 days 03/27/18 15:01 Blood - Line Anaerobic Blood Culture - Preliminary No growth in 2 days 03/27/18 19:45 Sputum - Tracheal Aspirate Gram Stain - Final 03/27/18 19:45 Sputum - Tracheal Aspirate Sputum Culture - Final Stenotrophomonas maltophilia 03/24/18 14:15 Bronchial - Bronchial Gram Stain - Final 03/24/18 14:15 Bronchial - Bronchial Bronchial Culture - Final Stenotrophomonas maltophilia 03/24/18 14:15 Bronchial Washings - Right Lower Lobe Fungal Smear - Final No fungal elements seen 03/24/18 14:15 Bronchial Washings - Right Lower Lobe Fungal Culture - Pending 03/24/18 14:15 Bronchial Washings - Right Lower Lobe Acid Fast Bacilli Smear - Final No acid fast bacilli seen 03/24/18 14:15 Bronchial Washings - Right Lower Lobe Mycobacterial Culture - Pending Lab - Hematology Results 03/28/18 03/29/18 04:45 04:00 WBC 5.3 5.4 RBC 2.67 L 2.48 L Hgb 8.1 L 7.6 L Hct 24.0 L 22.8 L MCV 90.0 91.9 MCH 30.4 30.7 MCHC 33.7 33.4 RDW 16.9 16.5 Plt Count 139 L 154 MPV 8.3 8.7 Neut % (Auto) 77.7 H 76.3 H Lymph % (Auto) 14.0 15.6 Hooker % (Auto) 7.5 7.0 Eos % (Auto) 0.6 0.7 Baso % (Auto) 0.2 0.4 Neut # (Auto) 4.1 4.1 Lymph # (Auto) 0.7 L 0.8 L Hooker # (Auto) 0.4 0.4 Eos # (Auto) 0.0 0.0 Baso # (Auto) 0.0 0.0 WBC Differential . . Differential Comment Auto diff final Auto diff final Lab - Chemistry Results 03/27/18 03/27/18 03/28/18 17:59 23:40 04:45 Sodium 141 Potassium 3.5 Chloride 107 Carbon Dioxide 27.1 Anion Gap 7 BUN 15 Creatinine Less than 0.15 L Estimated GFR Greater than 89 POC Glucose 102 95 Random Glucose 100 Calcium 6.9 L* Prot Corrected Calcium 8.3 L Phosphorus 3.7 D Magnesium 1.7 Ammonia Total Protein 4.5 L 03/28/18 03/28/18 03/28/18 04:45 06:11 20:33 Sodium Potassium Chloride Carbon Dioxide Anion Gap BUN Creatinine Estimated GFR POC Glucose 110 101 Random Glucose Calcium Prot Corrected Calcium Phosphorus Magnesium Ammonia 32 Total Protein 03/29/18 03/29/18 04:00 04:00 Sodium 138 Potassium 4.2 Chloride 105 Carbon Dioxide 27.2 Anion Gap 6 BUN 15 Creatinine Less than 0.15 L Estimated GFR Greater than 89 POC Glucose Random Glucose 134 H Calcium 7.0 L* Prot Corrected Calcium 8.4 L Phosphorus Magnesium Ammonia 23 Total Protein 4.6 L Imaging: ITS Impressions Head CT 03/12/18 06:59 CONCLUSION: 1. No acute intracranial abnormality. 2. Minimal fluid in the mastoid air cells. Abdomen X-Ray 03/21/18 00:00 CONCLUSION: Nasogastric or orogastric tube tip in distal stomach. Chest X-Ray 03/24/18 13:36 CONCLUSION: Placement of tracheostomy tube otherwise not significantly changed. Cervical Spine MRI 03/27/18 00:00 CONCLUSION: 1. Persistent well-defined area of fluid signal in the cord at the C5-C6 level. There is more ill-defined suspected edema within the cord at the C4-C7 levels. This appearance is unchanged when compared to the prior MRI examination. 2. Status post laminectomy at the C4-C7 levels with postsurgical hardware seen at the C4-T1 levels. 3. Prominence of the posterior epidural space at the C4-C6 levels with a possible dural defect posteriorly seen at the C5-C6 level. This appearance is unchanged. A small amount of fluid is seen to extend posterior to the suspected dural defect. 4. Persistent prevertebral soft tissue swelling. 1. Head MRI 03/27/18 00:00 CONCLUSION: 1. 2 small persistent enhancing lesions without significant mass effect or surrounding edema seen in the left occipital and left parietal lobe. These are unchanged. Multiple lesions raises the possibility of metastatic disease versus infection or underlying vascular malformations such as cavernous angiomas. Significant mass effect or edema is not seen. 2. Scattered focal areas of demyelination the cerebral white matter. Physical Exam: GENERAL: No acute distress. HEENT: Pupils reactive to light. No icterus. NECK: Supple. No swelling. LUNGS: Decreased breath sounds. HEART: Regular S1 and S2. No murmurs, rubs or gallops. ABDOMEN: Soft, nontender. Normoactive bowel sounds. EXTREMITIES: No clubbing or cyanosis. Diffuse edema. 1+. 2+ edema at UE's. SKIN: No rash. NEUROLOGIC: left hemiparesis. Decreased strength. PSYCH: Unable to fully assess. Lines: PICC line without evidence of infection. Assessment and Plan - Plan IMPRESSION: New fever. Sputum culture has Stenotrophomonas. Bronchoscopy culture has Stenotrophomonas resistant to Levaquin. ESBL E. coli bacteremia. Treated and resolved.. ESBL E. coli UTI. Treated and resolved. Pneumonia due to Stenotrophomonas. Acute respiratory failure. Post tracheostomy. Status post cervical spine surgery. Brain lesions on MRI. 3 enhancing nodular lesions seen in the left parietal area. Recent subarachnoid hemorrhage. Left hemiparesis. Recommendations: Continue Bactrim IV for Stenotrophomonas. Continue vancomycin. She has brain lesion on MRI also, unsure if this may be infection. Follow blood cultures Monitor temperature. Discussed with .Discussed with RN.
[2018-03-29] MEDS ORDERED: Calcium Chloride Inj 0.5 GM in Sodium Chlor 0.9% Inj 100 ML IV.SIG ONE (15:00)
[2018-03-29] MEDS: Collagenase Oint 30 GM Tube TOPICAL SCH (15:08)
[2018-03-30] MEDS: WATER IV.SIG SCH ×4 (04:04→15:00)
[2018-03-30] MEDS: SULFAMETHOX IV.SIG SCH ×4 (04:04→15:00)
[2018-03-30] MEDS: DEXTROSE 5% IV.SIG SCH ×4 (04:04→15:00)
[2018-03-30] MEDS: TRIMETHOPRIM IV.SIG SCH ×4 (04:04→15:00)
[2018-03-30] MEDS: Metoprolol Tartrate 25 MG Tablet PO SCH ×4 (04:05→20:08)
--- NOTE | 2018-03-30 05:12 | XR ---
EXAM DATE: 03/30/2018 4:16 AM EDT AGE/SEX: 62 years / Female INDICATIONS: Shortness of breath, possible pulmonary disease. CLINICAL DATA: This is the patient's subsequent encounter. Patient reports that signs and symptoms h ave been present for 1 month and indicates a pain score of Nonresponsive. MEDICAL/SURGICAL HISTORY: . Hypertension. Hypothyroidism. 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 . Fusion, cervical. Bladder sling. COMPARISON: [facility], CHEST 1V SINGLE AP, 03/24/2018. . FINDINGS: A single AP view of the chest demonstrates persistent left basilar consolidation with associated effu faith. Haziness predominantly limited to the right perihilar distribution actually shows some slight i nterval improvement and probably represents some focal airspace consolidation. Tracheostomy tube and right upper extremity PICC line are unchanged in position. Posterior fixation of multiple cervical se gments. Osseous structures are otherwise intact. CONCLUSION: 1. Persistent left basilar consolidation with probable associated effusion. 2. There appears to be some improving aeration in the right hemithorax 3. Stable position of life-support tubes Electronically signed by: Adan Catalan MD 03/30/2018 5:11 AM EDT
[2018-03-30] MEDS ORDERED: Pharmacy Ordered Lab Info OTHER ONE (05:45)
[2018-03-30] MEDS: Levothyroxine 50 MCG Tablet PO SCH (06:18)
[2018-03-30 06:36] LABS: Baso % (Auto) 0.1 % (0.0-2.0); Eos % (Auto) 0.4 % (0.0-4.0); Hematocrit 21.7 % (35.0-46.0); Hemoglobin 7.3 gm/dL (11.6-15.3); Lymph # (Auto) 1.1 th/mm3 (1.0-4.8); Lymph % (Auto) 18.6 % (9.0-44.0); Mean Corpuscular HGB Conc 33.8 % (32.0-36.0); Mean Corpuscular Hemoglobin 30.5 pg (27.0-34.0); Mean Corpuscular Volume 90.3 fL (80.0-100.0); Mean Platelet Volume 8.4 fL (7.0-11.0); Mono # (Auto) 0.4 th/mm3 (0.0-0.9); Mono % (Auto) 6.8 % (0.0-8.0); Neut # (Auto) 4.5 th/mm3 (1.8-7.7); Neut % (Auto) 74.1 % (16.0-70.0); Platelet Count 179 th/mm3 (150-450); Red Blood Count 2.41 mil/mm3 (4.00-5.30); Red Cell Distribution Width 16.8 % (11.6-17.2)
[2018-03-30 07:02] LABS: Alanine Aminotransferase 19 U/L (10-53); Anion Gap 8 meq/L (5-15); Aspartate Aminotransferase 25 U/L (15-37); Blood Urea Nitrogen 10 mg/dL (7-18); Calcium 7.4 mg/dL (8.5-10.1); Carbon Dioxide 25.7 meq/L (21.0-32.0); Chloride 103 meq/L (98-107); Glomerular Filtration Rate Greater Than 89 mL/min (>89); Glucose,Random 159 mg/dL (74-106); Magnesium 1.6 mg/dL (1.5-2.5); Phosphorus 3.3 mg/dL (2.5-4.9); Potassium 3.8 meq/L (3.5-5.1); Sodium 137 meq/L (136-145)
[2018-03-30 07:11] LABS: Alkaline Phosphatase 416 U/L (45-117); Total Protein 4.9 g/dL (6.4-8.2)
[2018-03-30] MEDS: Gabapentin 300 MG Capsule PO SCH ×4 (07:57→18:46)
[2018-03-30] MEDS: Hypromellose 0.3% Opth Gel 10 GM Bottle EACH EYE SCH ×3 (08:34→18:47)
[2018-03-30] MEDS: Oral Hygiene Kit OROPHARYNG SCH ×3 (08:34→18:45)
[2018-03-30] MEDS: Vancomycin Inj 1,250 MG in Sodium Chlor 0.9% Inj 250 ML IV.SIG SCH ×2 (08:35→18:46)
[2018-03-30] MEDS: Chlorhexidine 0.12% Oral Kit 15 ML UDC OROPHARYNG SCH ×2 (08:36→20:08)
[2018-03-30] MEDS: Insulin NovoLIN Regular Correctional Sugar Inj SQ SCH ×2 (08:36→20:20)
[2018-03-30] MEDS: Heparin Central Flush 100 UNIT/ML 5 ML Vial IV.FLUSH SCH (08:37)
[2018-03-30] MEDS: Heparin Central Flush 100 UNIT/ML 5 ML Vial IV.FLUSH PRN (08:38)
[2018-03-30] MEDS: Collagenase Oint 30 GM Tube TOPICAL SCH (14:00)
--- NOTE | 2018-03-30 15:26 | P.DIET ---
Nutritional Evaluation Type of nutrition evaluation: follow-up Nutrition consult regarding: Tube Feeding Nutrition screening: Pressure Injury, [facility] Screening comments: MDC bolus feedings Subjective Subjective Comments: Pt admitted as a [facility] from [facility] here Objective - Diagnosis SVT - Objective % IBW: 95 Body Weight Used for Calculations: IBW (44.1kg) Energy Needs - Lower Range (kCal/kg): 33 Energy Needs - Upper Range (kCal/kg): 38 Lower Limit kCal/kg (kCals): 1,455 Upper Limit kCal/kg (kCals): 1,676 Lower Limit Protein Factor (Grams per Kg): 1.2 Upper Limit Protein Factor (Grams per Kg): 1.8 Lower Protein Needs (Protein): 53 Upper Protein Needs (Protein): 79 Dietitian Reviewed in Medical Record: Curent medications, Intake & Output, Labs , Tube feeding, Wound/DTI Diet Order: NPO Wound Care Note: 03/07 WOC consult: 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 Pt had PEG placed and trach placed 03/24. Pt's nutritional needs as assessed above. Pt is currently tolerating TF Glucerna 1.5 at 50 ml/hr for 22 hrs well. [facility] for bolus feeding recs, please see below. 4 bolus feedings/day will provide: 1080 total volume, 1620 kcals, 89 gms protein and 820 mls free water which is adequate to meet pt's nutritional needs. Reviewed wts, labs, wound assessment notes, MD notes. Will monitor TF bolus feeds tolerance, clinical course. Recommendations: TF Glucerna 1.5 bolus feeding recs: 1. 240mls at 8am, 12pm, 4pm and 360mls at 8pm 2. 30mls free water flushes before and after each bolus feeding 3. Free water flushes per MD Dietitian to Monitor: Lab values, Intake & Output, Tube feeding tolerance, Weight change, Wound/skin status, Medical course
--- NOTE | 2018-03-30 17:27 | P.PNCC ---
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 she was sent to [facility] for procedural management of these. She was then transferred to [place] [facility] on 02/28. Please see the dictated hospitalist consult note on 02/28 on admission to [place] for a detailed record of the hospital course while at [facility]. Today, she was found to be very tachycardic in the 160s and hypotensive with sbp in the 70s. She was emergently transferred to the ICU after rapid response was called for evaluation and management of her hypotension. Of note, she did not have iv access. I met her on arrival to the ICU. I placed 2 18g piv. 12-lead EKG confirms sinus tachycardia. I due to the fast rate, I gave 6mg adenosine to slow it down diagnostically, and it slowed down temporarily to a HR in the 70s, confirming sinus rhythm. I performed bedside critical care echocardiography which demonstrates grossly preserve biventricular function. in particular, RV is decompressed and well-functioning. IVC is completely collapsable. no pericardial effusion. I gave her 3L NS bolus ivf which improved her SBP to 110s and decreased her HR to 110s. She is afebrile. stat CBC shows anemia (history of recent femoral artery pseudoaneurysm), CMP demonstrates elevated AST and Alk phos, elevated lactate at 3.7. Cr elevated above baseline. Patient denies any complaints to me. she is mostly slovak speaking, but communicates in basic Kazakh. specifically denies chest pain, shortness of breath, fever/chills, nausea, vomiting, abdominal pain, constipation, diarrhea. I discussed with her family, she has been eating and drinking well even up to today. ROS otherwise negative. 03/02 Patient is awake lying in bed in TRAV. On room air oxygen. T:103.2 this morning She was hypotensive overnight initially placed on Neosyn now off pressor with BP 147/67 with MAP 96. 03/03 No events overnight. Seems more awake and alert this morning. T: 100.2 at midnight. BP and HR better ( 119/58 with MAP 83mmHg). On no pressors. BC from 03/01: E.coli ESBL 6/30: clinically improving. slightly tachycardic. on appropriate therapy for her ESBL e. coli. denies complaints. hemodynamically stable. on room air. 03/05: Patient developed worsening respiratory distress yesterday and required endotracheal intubation and was placed on mechanical ventilation. Hypotension overnight for which patient was started on phenylephrine. Developed A. fib with RVR and was started on amiodarone gtt. 03/06 Patient remains sedated and intubated. Tmax 101.6, On Amio drip. 03/07 Patient remains intubated off sedation. s/p transfusion 2u PRBC yesterday. Tolerating tube feeds. Afebrile. Off Amio drip. 03/08 Patient remains intubated. T:100.9 last night. 03/09 No events overnight. Tolerated CPAP for approx 4 hrs yesterday. Off sedation. Afebrile. 03/10 No events overnight T:100.1 at 4am, Awake, patient was on CPAP for short time yesterday and placed back on PRVC mode for low TV and tachycardia. 03/11 No events overnight. Tolerated CPAP x 4hrs yesterday. T:100.6 yesterday. On no sedation. 03/12 Patient was extubated yesterday reintubated last night for resp distress and AMS. Afebrile. On Diprivan infusion for sedation. 03/13: Remains intubated critical, remains encephalopathy unresponsive off sedation. Afebrile EEG showed significant encephalopathy no seizures. Right subclavian central line placed, remains on Luis-Synephrine to keep map above 65 03/14: Remains encephalopathy again unresponsive. Eyes are open but no tracking did not follow commands. Remains leukopenic. Weaned off Luis-Synephrine. Not tolerating CPAP due to low tidal volume 03/15: Continues to fail CPAP due to low tidal volume. IV Levaquin added yesterday by ID for stenotrophomonas in the sputum. Remains encephalopathic did not follow commands but eyes are spontaneously open. I have requested neurology consult today 03/16: T-max 100.1. Currently 99. EEG has been performed. Does not follow commands. Tube feeds at 30 cc an hour. Positive BM. 03/17 Patient remains intubated on Precedex drip but awake. 03/18 T-current 100.7. Tolerating tube feeds at goal. Arousable the ventilator and follows command. Left side is chronically weaker. Discussed with Dr. Gutierrez /neurology. Reviewed MRI brain. Recommended evaluation by neurosurgery for abnormal MRI C-spine. Patient's CT surgeon at [facility] is Dr. Ku 03/19: T-max 100.7. Currently 99. Tachycardic. Tolerated CPAP trial. On the ventilator currently. Positive BM yesterday. 03/20 Patient was on Diprivan and Precedex drip overnight now off sedation. Afebrile. 03/21: no improvements. has been intubated for 17 days, and failed extubation quickly 03/12. needs trach and peg for further progress. 03/22: Afebrile. Intubation day #18. Patient currently contemplating trach and PEG options. Currently off dexmedetomidine drip. 03/23: Afebrile. Plan for PEG tube today. Awake and alert and interactive on the ventilator. Tube feeds are currently off. 03/24: Afebrile. Status post PEG tube by Dr. Orellana 03/23. Plan for percutaneous tracheostomy Dr. Serrano at 10 AM today 03/24. Tachycardic. Will replace phosphorus and magnesium this a.m. 03/25: Status post tracheostomy 03/[address] Serrano. Currently on PSV trial. No new issues overnight. Tube feeds at goal. 03/26: Low-grade temperatures overnight. Tube feeds have been restarted. Will start on CPAP trials today. 03/27: T-max 102.2. Blood cultures have been drawn today. Tube feeds of been resumed. Has been new concern about new altered mental status. Opens eyes but not following commands. MRI brain/C-spine ordered tonight 03/28: Afebrile today. MRI brain revealed 3 left parietal lesion/stable. MRI C- spine without significant change. Opens mouth to command for temperature today. Slight movement of bilateral upper extremities. Subjective 03/29: T-max 99.8. Currently afebrile. Slightly more interactive today. Tolerating tube feeds. Positive BM. 03/30: no changes. diarrhea which may be associated with continuous tube feeds: will transition to bolus tube feeds and add fiber to diet. Objective Vital Signs / I&O: Vital Signs 03/29/18 18:00 03/29/18 20:00 03/29/18 20:24 Temperature 37.9 C H Pulse Rate 111 H 110 H Respiratory Rate 22 19 Blood Pressure 99/65 L Pulse Oximetry 99 100 03/29/18 20:29 03/29/18 22:00 03/30/18 00:00 Temperature 37.5 C Pulse Rate 111 H 107 H 108 H Respiratory Rate 26 H 22 Blood Pressure 128/66 Pulse Oximetry 03/30/18 01:00 03/30/18 02:00 03/30/18 04:00 Temperature 37.1 C Pulse Rate 108 H 108 H 100 H Respiratory Rate 20 18 Blood Pressure 99/61 L Pulse Oximetry 100 03/30/18 04:13 03/30/18 06:00 03/30/18 08:00 Temperature 37.3 C Pulse Rate 110 H 110 H 106 H Respiratory Rate 20 18 Blood Pressure 97/59 L Pulse Oximetry 100 100 03/30/18 08:50 03/30/18 12:00 03/30/18 12:09 Temperature 37.4 C Pulse Rate 107 H 104 H 104 H Respiratory Rate 16 18 27 H Blood Pressure 96/57 L Pulse Oximetry 100 100 100 03/30/18 16:00 03/30/18 16:26 Temperature 38.1 C H Pulse Rate 109 H 109 H Respiratory Rate 28 H 32 H Blood Pressure 111/73 Pulse Oximetry 100 100 Intake & Output 03/29/18 03/30/18 03/30/18 18:59 06:59 18:59 Intake Total 1932.5 / 1932.5 593 / 593 785.5 / 785.5 Output Total 3725 / 3725 2350 / 2350 2850 / 2850 Balance -1792.5 / -1792.5 -1757 / -1757 -2064.5 / -2064.5 Weight 69 kg Intake: IV 1308.5 / 1308.5 785.5 / 785.5 Bactrim Inj 368 MG In D5W Inj 1046 / 1046 523 / 523 500 ML @ 348.667 mls/hr IV.SIG Q12H KARINA Rx#:[id number] Vancomycin Inj 1,250 MG In NS 262.5 / 262.5 262.5 / 262.5 Inj 250 ML @ 250 mls/hr IV.SIG Q12H KARINA Rx#:[id number] Tube Feeding 624 / 624 493 / 493 Water Bolus Amount 100 / 100 Output: Urine 150 / 150 Urine Amount (Catheter) 3725 / 3725 2200 / 2200 2850 / 2850 Straight 3725 / 3725 2200 / 2200 2850 / 2850 Other: Date of Last Bowel Movement 03/29/18 # Incontinent Bowel Movements 2 2 Result Diagrams: 03/30/18 05:50 03/30/18 05:50 Objective Remarks: GENERAL: Patient is 62 yo female patient currently on ventilator via tracheostomy resting in bed in no acute distress SKIN: Warm and dry. No rash. Sacral DTI HEAD: Normocephalic. EYES: No scleral icterus. No injection or drainage. NECK: Supple, trachea midline. No JVD. #8 Shiley percutaneous tracheostomy site is clean dry and intact. CARDIOVASCULAR: Tachycardic, RR. RESPIRATORY: Breath sounds equal bilaterally. No accessory muscle use. Diminished in the bases bilaterally. GASTROINTESTINAL: Abdomen soft, non-tender, nondistended. PEG tube site is clean dry and intact. MUSCULOSKELETAL: Trace bilateral lower extremity edema. NEURO: Arousable and follows commands with bilateral upper extremities. She is not answering questions today.. She is Faroese-speaking and can understand some Kazakh phrases. Assessment and Plan - Assessment and Plan Plan: Neuro/Psych: History of C6 vertebral aneurysm and underwent a C4 through T1 posterior fusion resection of the C6 mass which was negative for malignancy with 90% of mass removed, just showing inflammation, and a C4 through 7 laminectomy on 02/03/2018. Severe metabolic encephalopathy Recent aneurysmal subarachnoid hemorrhage treated at [facility] in January 2018 History of left occipital subarachnoid hemorrhage February 15, 2018 Cord edema possible hemorrhage within the cord level C7 through T1 Off Precedex drip , monitor neuro status Repeat CT brain showed no acute abnormalities. EEG significant encephalopathy Seen by Dr. Newberry from [facility]- No further neurosurgical intervention anticipated at this point. MRI brain: previously noted subarachnoid hemorrhage overlying the occipital lobes has resolved. Tiny trace of residual hemorrhage in the posterior lateral ventricles. Stable chronic white matter changes. No new or acute intracranial process. Neurology consult requested Dr. Arellano/follow-up has followed EEG: Mod. encephalopathy MRI brain 03/16 : There is a new area of nodular enhancement, abnormal FLAIR signal, and mild restricted diffusion at the baeza matter white matter junction in the left occipital lobe. 3 additional small areas of nodular enhancement measuring approximately 3 mm are also identified along the baeza matter surface in the left parietal high convexity. Etiology is nonspecific. MRI cervical spine 03/16: Persistent abnormal signal in the cord extending from C4 down to T1. Much of this likely related to edema. The edema appears to extend over a smaller area on the current exam. There is a linear area of increased signal seen on the T1 and T2-weighted images at the left-sided cord at the C7-T1 level which may represent an area of focal hemorrhage within the cord. Status post laminectomy with posterior fusion and hardware placed at the C4-T1 levels. Prevertebral soft tissue swelling. No focal fluid collection to suggest an abscess. Currently on gabapentin 600 mg 3 times daily/home medication on hold for neuropathy pain Currently on cyclobenzaprine 5 mg every 8 hours. Hold secondary to AMS Schedule oxycodone 2.5 mg by tube every 6 hours as needed breakthrough pain Acetaminophen 650 every 6 hours as needed fever/pain 1 through 5 Tramadol 50 mg every 8 hours as needed pain 6 through 10 C-collar has been removed/okayed by neurosurgery Her neurosurgeon is Dr. Ku [id number] MRI brain 03/27 - small persistent enhancing lesions without significant mass effect or surrounding edema seen in the left occipital and left parietal lobe. These are unchanged. Multiple lesions raises the possibility of metastatic disease versus infection or underlying vascular malformations such as cavernous angiomas. Significant mass effect or edema is not seen. Scattered focal areas of demyelination the cerebral white mattercervical spine 03/27 revealed MRI c spine - 03/27. Persistent well-defined area of fluid signal in the cord at the C5-C6 level. There is more ill-defined suspected edema within the cord at the C4-C7 levels. This appearance is unchanged when compared to the prior MRI examination. Status post laminectomy at the C4-C7 levels with postsurgical hardware seen at the C4-T1 levels. Prominence of the posterior epidural space at the C4-C6 levels with a possible dural defect posteriorly seen at the C5-C6 level. This appearance is unchanged. A small amount of fluid is seen to extend posterior to the suspected dural defect. Persistent prevertebral soft tissue swelling Pulm: Acute hypoxemic respiratory failure-status post percutaneous tracheostomy tube placement by Dr. Serrano 03/24 HCAP Extubated and reintubated on 03/11, failing CPAP trials due to low tidal volumes. Ventilator bundle Albuterol/ipratropium aerosols every 4 hours with albuterol aerosols every 2 hours. Dyspnea Daily CPAP trial CT pulmonary angiogram chest: No PE, minimal consolidative changes left base CV: A. fib/sinus tachycardia Septic shock- resolved. Hyperlipidemia Place on Lopressor 25mg Q6h Monitor HR and BP keep MAP>65mmHg. Pravachol 20mg daily for dyslipidemia - Elevated troponin, type II demand ischemia NSTEMI - Echo 03/06 EF 50-55% - Will not anticoagulate at this time given risk/benefit with recent head bleed Cortisol level: 41 Cards has followed Renal/FEN/: Urinary retention Monitor renal function, electrolytes replacement per protocol. 40 milliequivalents KCl 1 now. Recheck in a.m. Continue oxybutynin 5 mg every 8 hours GI: Status post PEG tube 03/[address] Sutton Monitor LFT's, CT abd/pelvis without evidence of overt acute cholecystitis Tube feeds- Glucerna 1.5 with goal rate 50ml/hr have been resumed Lansoprazole for GI prophylaxis Docusate sodium/senna 1 tablet twice daily for bowel regimen ID: Urinary tract infection ESBL E. coli bacteremia Pneumonia with Stenotrophomonas s/p Septic shock ID is following Continue with abx per ID (/trimethoprim/sulfamethoxazole, vancomycin) levofloxacin discontinued 03/28 03/24 -bronchoscopy -Stenotrophomonas 03/16 -blood cultures 2 -negative 03/11, 03/15 sputum Stenotrophomonas 03/07: Sputum cx: NG 03/08, 03/09 BC: NGTD 03/06 BC Coag negative staph 03/05 BC: E.coli bacteremia 03/01 BC: E.coli ESBL 03/01 Urine cx: GNR Heme: Normocytic anemia -Monitor CBC, s/p 2u PRBC 03/06 Heme is following- Dr. Miller Hep PLT ab negative FEN TIBC both low Transfuse one PRBC 03/18 MSKRheum Sacral deep tissue injury SLE positive History of RF - present on admission - does not appear grossly infected - likely not the source of infection - management per wound care nurse Endo: SSI if needed for glycemic control On levothyroxine 50mcg daily. TSH: 0.47 GI prophylaxis- On lansoprazole 30 mg daily DVT prophylaxis- SCD, hold Heparin Sq due to recent [employer] bleed in January ( MRI brain 01/29) along with likely current blood at site of C-spine surgery 02/20 Lines: Right subclavian CVL. Discontinued 03/23 PICC right upper extremity placed 03/23 OVERALL IMPRESSION: clinically deconditioned. needs aggressive PT. LTAC would be appropriate.
[2018-03-31] MEDS: Oral Hygiene Kit OROPHARYNG SCH ×4 (00:13→16:39)
[2018-03-31] MEDS: Metoprolol Tartrate 25 MG Tablet PO SCH ×4 (02:58→20:03)
[2018-03-31] MEDS: SULFAMETHOX IV.SIG SCH ×4 (03:21→14:41)
[2018-03-31] MEDS: DEXTROSE 5% IV.SIG SCH ×4 (03:21→14:41)
[2018-03-31] MEDS: TRIMETHOPRIM IV.SIG SCH ×4 (03:21→14:41)
[2018-03-31] MEDS: WATER IV.SIG SCH ×4 (03:21→14:41)
[2018-03-31] MEDS: Hypromellose 0.3% Opth Gel 10 GM Bottle EACH EYE SCH ×3 (03:23→20:04)
[2018-03-31] MEDS: Vancomycin Inj 1,250 MG in Sodium Chlor 0.9% Inj 250 ML IV.SIG SCH (06:08)
[2018-03-31] MEDS: Levothyroxine 50 MCG Tablet PO SCH (06:09)
--- NOTE | 2018-03-31 07:10 | P.PNCC ---
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 she was sent to [facility] for procedural management of these. She was then transferred to [place] [facility] on 02/28. Please see the dictated hospitalist consult note on 02/28 on admission to [facility] for a detailed record of the hospital course while at [facility]. Today, she was found to be very tachycardic in the 160s and hypotensive with sbp in the 70s. She was emergently transferred to the ICU after rapid response was called for evaluation and management of her hypotension. Of note, she did not have iv access. I met her on arrival to the ICU. I placed 2 18g piv. 12-lead EKG confirms sinus tachycardia. I due to the fast rate, I gave 6mg adenosine to slow it down diagnostically, and it slowed down temporarily to a HR in the 70s, confirming sinus rhythm. I performed bedside critical care echocardiography which demonstrates grossly preserve biventricular function. in particular, RV is decompressed and well-functioning. IVC is completely collapsable. no pericardial effusion. I gave her 3L NS bolus ivf which improved her SBP to 110s and decreased her HR to 110s. She is afebrile. stat CBC shows anemia (history of recent femoral artery pseudoaneurysm), CMP demonstrates elevated AST and Alk phos, elevated lactate at 3.7. Cr elevated above baseline. Patient denies any complaints to me. she is mostly citizen of [place] speaking, but communicates in basic Serbian. specifically denies chest pain, shortness of breath, fever/chills, nausea, vomiting, abdominal pain, constipation, diarrhea. I discussed with her family, she has been eating and drinking well even up to today. ROS otherwise negative. 03/02 Patient is awake lying in bed in TRAV. On room air oxygen. T:103.2 this morning She was hypotensive overnight initially placed on Neosyn now off pressor with BP 147/67 with MAP 96. 03/03 No events overnight. Seems more awake and alert this morning. T: 100.2 at midnight. BP and HR better ( 119/58 with MAP 83mmHg). On no pressors. BC from 03/01: E.coli ESBL 6/30: clinically improving. slightly tachycardic. on appropriate therapy for her ESBL e. coli. denies complaints. hemodynamically stable. on room air. 03/05: Patient developed worsening respiratory distress yesterday and required endotracheal intubation and was placed on mechanical ventilation. Hypotension overnight for which patient was started on phenylephrine. Developed A. fib with RVR and was started on amiodarone gtt. 03/06 Patient remains sedated and intubated. Tmax 101.6, On Amio drip. 03/07 Patient remains intubated off sedation. s/p transfusion 2u PRBC yesterday. Tolerating tube feeds. Afebrile. Off Amio drip. 03/08 Patient remains intubated. T:100.9 last night. 03/09 No events overnight. Tolerated CPAP for approx 4 hrs yesterday. Off sedation. Afebrile. 03/10 No events overnight T:100.1 at 4am, Awake, patient was on CPAP for short time yesterday and placed back on PRVC mode for low TV and tachycardia. 03/11 No events overnight. Tolerated CPAP x 4hrs yesterday. T:100.6 yesterday. On no sedation. 03/12 Patient was extubated yesterday reintubated last night for resp distress and AMS. Afebrile. On Diprivan infusion for sedation. 03/13: Remains intubated critical, remains encephalopathy unresponsive off sedation. Afebrile EEG showed significant encephalopathy no seizures. Right subclavian central line placed, remains on Luis-Synephrine to keep map above 65 03/14: Remains encephalopathy again unresponsive. Eyes are open but no tracking did not follow commands. Remains leukopenic. Weaned off Luis-Synephrine. Not tolerating CPAP due to low tidal volume 03/15: Continues to fail CPAP due to low tidal volume. IV Levaquin added yesterday by ID for stenotrophomonas in the sputum. Remains encephalopathic did not follow commands but eyes are spontaneously open. I have requested neurology consult today 03/16: T-max 100.1. Currently 99. EEG has been performed. Does not follow commands. Tube feeds at 30 cc an hour. Positive BM. 03/17 Patient remains intubated on Precedex drip but awake. 03/18 T-current 100.7. Tolerating tube feeds at goal. Arousable the ventilator and follows command. Left side is chronically weaker. Discussed with Dr. Gutierrez /neurology. Reviewed MRI brain. Recommended evaluation by neurosurgery for abnormal MRI C-spine. Patient's CT surgeon at [facility] is Dr. Ku [phone] 03/19: T-max 100.7. Currently 99. Tachycardic. Tolerated CPAP trial. On the ventilator currently. Positive BM yesterday. 03/20 Patient was on Diprivan and Precedex drip overnight now off sedation. Afebrile. 03/21: no improvements. has been intubated for 17 days, and failed extubation quickly 03/12. needs trach and peg for further progress. 03/22: Afebrile. Intubation day #18. Patient currently contemplating trach and PEG options. Currently off dexmedetomidine drip. 03/23: Afebrile. Plan for PEG tube today. Awake and alert and interactive on the ventilator. Tube feeds are currently off. 03/24: Afebrile. Status post PEG tube by Dr. Orellana 03/23. Plan for percutaneous tracheostomy Dr. Serrano at 10 AM today 03/24. Tachycardic. Will replace phosphorus and magnesium this a.m. 03/25: Status post tracheostomy 03/[address] Serrano. Currently on PSV trial. No new issues overnight. Tube feeds at goal. 03/26: Low-grade temperatures overnight. Tube feeds have been restarted. Will start on CPAP trials today. 03/27: T-max 102.2. Blood cultures have been drawn today. Tube feeds of been resumed. Has been new concern about new altered mental status. Opens eyes but not following commands. MRI brain/C-spine ordered tonight 03/28: Afebrile today. MRI brain revealed 3 left parietal lesion/stable. MRI C- spine without significant change. Opens mouth to command for temperature today. Slight movement of bilateral upper extremities. 03/29: T-max 99.8. Currently afebrile. Slightly more interactive today. Tolerating tube feeds. Positive BM. 03/30: no changes. diarrhea which may be associated with continuous tube feeds: will transition to bolus tube feeds and add fiber to diet. Subjective 03/31: uop continues to be very high: straight caths with >1000mL q4h. will send urine SG and osms. sodium has remained stable for days- unlikely to be DI. could possibly be autodiuresis from chronic volume overload over the past hospitalization. otherwise, no other changes. Objective Vital Signs / I&O: Vital Signs 03/30/18 08:00 03/30/18 08:50 03/30/18 10:00 Temperature 37.3 C Pulse Rate 88 107 H 72 Respiratory Rate 18 16 Blood Pressure 97/59 L Pulse Oximetry 100 100 03/30/18 12:00 03/30/18 12:09 03/30/18 14:00 Temperature 37.4 C Pulse Rate 69 104 H 74 Respiratory Rate 18 27 H Blood Pressure 96/57 L Pulse Oximetry 100 100 03/30/18 16:00 03/30/18 16:26 03/30/18 18:00 Temperature 38.1 C H Pulse Rate 72 109 H 75 Respiratory Rate 28 H 32 H Blood Pressure 111/73 Pulse Oximetry 100 100 03/30/18 19:24 03/30/18 20:00 03/30/18 21:29 Temperature 36.4 C Pulse Rate 109 H 109 H 107 H Respiratory Rate 16 18 Blood Pressure 93/60 L Pulse Oximetry 100 100 03/30/18 23:15 03/31/18 00:00 03/31/18 00:30 Temperature 37.2 C Pulse Rate 106 H 109 H Respiratory Rate 22 23 20 Blood Pressure 90/61 L Pulse Oximetry 100 100 03/31/18 02:00 03/31/18 04:00 03/31/18 04:10 Temperature 37.6 C Pulse Rate 109 H 110 H 105 H Respiratory Rate 18 19 Blood Pressure 102/61 Pulse Oximetry 100 100 03/31/18 06:00 Temperature Pulse Rate 111 H Respiratory Rate Blood Pressure Pulse Oximetry Intake & Output 03/30/18 03/30/18 03/31/18 06:59 18:59 06:59 Intake Total 593 / 593 1628.0 / 1628.0 2206 / 2206 Output Total 2350 / 2350 4300 / 4300 2725 / 2725 Balance -1757 / -1757 -2672.0 / -2672.0 -519 / -519 Weight 69 kg 65.6 kg Intake: IV 1048.0 / 1048.0 1500 / 1500 Bactrim Inj 368 MG In D5W Inj 523 / 523 1000 / 1000 500 ML @ 348.667 mls/hr IV.SIG Q12H KARINA Rx#:[id number] Vancomycin Inj 1,250 MG In NS 525.0 / 525.0 500 / 500 Inj 250 ML @ 250 mls/hr IV.SIG Q12H KARINA Rx#:[id number] Tube Feeding 493 / 493 480 / 480 506 / 506 Water Bolus Amount 100 / 100 100 / 100 200 / 200 Output: Urine 150 / 150 Urine Amount (Catheter) 2200 / 2200 4300 / 4300 2725 / 2725 Straight 2200 / 2200 4300 / 4300 2725 / 2725 Other: Date of Last Bowel Movement 03/30/18 # Bowel Movements 1 # Incontinent Bowel Movements 2 1 Result Diagrams: 03/31/18 07:35 03/31/18 07:35 Objective Remarks: GENERAL: Patient is 62 yo female patient currently on ventilator via tracheostomy resting in bed in no acute distress SKIN: Warm and dry. No rash. Sacral DTI HEAD: Normocephalic. EYES: No scleral icterus. No injection or drainage. NECK: Supple, trachea midline. No JVD. #8 Shiley percutaneous tracheostomy site is clean dry and intact. CARDIOVASCULAR: Tachycardic, RR. RESPIRATORY: Breath sounds equal bilaterally. No accessory muscle use. Diminished in the bases bilaterally. GASTROINTESTINAL: Abdomen soft, non-tender, nondistended. PEG tube site is clean dry and intact. MUSCULOSKELETAL: Trace bilateral lower extremity edema. NEURO: Arousable and follows commands with bilateral upper extremities. She is not answering questions today.. She is [place]-speaking and can understand some Serbian phrases. Assessment and Plan - Assessment and Plan Plan: Neuro/Psych: History of C6 vertebral aneurysm and underwent a C4 through T1 posterior fusion resection of the C6 mass which was negative for malignancy with 90% of mass removed, just showing inflammation, and a C4 through 7 laminectomy on 02/03/2018. Severe metabolic encephalopathy- resolving Recent aneurysmal subarachnoid hemorrhage treated at [facility] in January 2018 History of left occipital subarachnoid hemorrhage February 15, 2018 Cord edema possible hemorrhage within the cord level C7 through T1 Repeat CT brain showed no acute abnormalities. EEG significant encephalopathy [place] [facility] [place] further neurosurgical intervention anticipated at this point. MRI brain: previously noted subarachnoid hemorrhage overlying the occipital lobes has resolved. Tiny trace of residual hemorrhage in the posterior lateral ventricles. Stable chronic white matter changes. No new or acute intracranial process. Neurology consult requested Dr. Arellano/follow-up has followed EEG: Mod. encephalopathy MRI brain 03/16 : There is a new area of nodular enhancement, abnormal FLAIR signal, and mild restricted diffusion at the baeza matter white matter junction in the left occipital lobe. 3 additional small areas of nodular enhancement measuring approximately 3 mm are also identified along the baeza matter surface in the left parietal high convexity. Etiology is nonspecific. MRI cervical spine 03/16: Persistent abnormal signal in the cord extending from C4 down to T1. Much of this likely related to edema. The edema appears to extend over a smaller area on the current exam. There is a linear area of increased signal seen on the T1 and T2-weighted images at the left-sided cord at the C7-T1 level which may represent an area of focal hemorrhage within the cord. Status post laminectomy with posterior fusion and hardware placed at the C4-T1 levels. Prevertebral soft tissue swelling. No focal fluid collection to suggest an abscess. Currently on gabapentin 600 mg 3 times daily/home medication on hold for neuropathy pain Currently on cyclobenzaprine 5 mg every 8 hours. Hold secondary to AMS Schedule oxycodone 2.5 mg by tube every 6 hours as needed breakthrough pain Acetaminophen 650 every 6 hours as needed fever/pain 1 through 5 Tramadol 50 mg every 8 hours as needed pain 6 through 10 C-collar has been removed/okayed by neurosurgery Her neurosurgeon is Dr. Ku [phone] [id number] MRI brain 03/27 - small persistent enhancing lesions without significant mass effect or surrounding edema seen in the left occipital and left parietal lobe. These are unchanged. Multiple lesions raises the possibility of metastatic disease versus infection or underlying vascular malformations such as cavernous angiomas. Significant mass effect or edema is not seen. Scattered focal areas of demyelination the cerebral white mattercervical spine 03/27 revealed MRI c spine - 03/27. Persistent well-defined area of fluid signal in the cord at the C5-C6 level. There is more ill-defined suspected edema within the cord at the C4-C7 levels. This appearance is unchanged when compared to the prior MRI examination. Status post laminectomy at the C4-C7 levels with postsurgical hardware seen at the C4-T1 levels. Prominence of the posterior epidural space at the C4-C6 levels with a possible dural defect posteriorly seen at the C5-C6 level. This appearance is unchanged. A small amount of fluid is seen to extend posterior to the suspected dural defect. Persistent prevertebral soft tissue swelling Pulm: Acute hypoxemic respiratory failure-status post percutaneous tracheostomy tube placement by Dr. Serrano 03/24 HCAP Extubated and reintubated on 03/11, failing CPAP trials due to low tidal volumes. Ventilator bundle Albuterol/ipratropium aerosols every 4 hours with albuterol aerosols every 2 hours. Dyspnea Daily CPAP trial CT pulmonary angiogram chest: No PE, minimal consolidative changes left base CV: A. fib/sinus tachycardia Septic shock- resolved. Hyperlipidemia Place on Lopressor 25mg Q6h Monitor HR and BP keep MAP>65mmHg. Pravachol 20mg daily for dyslipidemia - Elevated troponin, type II demand ischemia NSTEMI - Echo 03/06 EF 50-55% - Will not anticoagulate at this time given risk/benefit with recent head bleed Cortisol level: 41 Cards has followed Renal/FEN/: Urinary retention Monitor renal function, electrolytes replacement per protocol. Continue oxybutynin 5 mg every 8 hours continue straight cath q4h send urine specific gravity, urine and serum osms. GI: Status post PEG tube 03/[address] Sutton Monitor LFT's, CT abd/pelvis without evidence of overt acute cholecystitis Tube feeds- Glucerna 1.5 with goal rate 50ml/hr have been resumed Lansoprazole for GI prophylaxis Docusate sodium/senna 1 tablet twice daily for bowel regimen ID: Urinary tract infection ESBL E. coli bacteremia Pneumonia with Stenotrophomonas s/p Septic shock ID is following Continue with abx per ID (/trimethoprim/sulfamethoxazole, vancomycin) levofloxacin discontinued 03/28 03/24 -bronchoscopy -Stenotrophomonas 03/16 -blood cultures 2 -negative 03/11, 03/15 sputum Stenotrophomonas 03/07: Sputum cx: NG 03/08, 03/09 BC: NGTD 03/06 BC Coag negative staph 03/05 BC: E.coli bacteremia 03/01 BC: E.coli ESBL 03/01 Urine cx: GNR Heme: Normocytic anemia -Monitor CBC, s/p 2u PRBC 03/06 Heme is following- Dr. Miller Hep PLT ab negative FEN TIBC both low Transfuse one PRBC 03/18 MSKRheum Sacral deep tissue injury SLE positive History of RF - present on admission - does not appear grossly infected - likely not the source of infection - management per wound care nurse Endo: SSI if needed for glycemic control On levothyroxine 50mcg daily. TSH: 0.47 GI prophylaxis- On lansoprazole 30 mg daily DVT prophylaxis- SCD, hold Heparin Sq due to recent [employer] bleed in January ( MRI brain 01/29) along with likely current blood at site of C-spine surgery 02/20 Lines: Right subclavian CVL. Discontinued 03/23 PICC right upper extremity placed 03/23 OVERALL IMPRESSION: clinically deconditioned. needs aggressive PT. LTAC would be appropriate.
[2018-03-31 08:17] LABS: Hemoglobin 7.2 gm/dL (11.6-15.3); Mean Corpuscular HGB Conc 34.4 % (32.0-36.0); Mean Corpuscular Hemoglobin 31.1 pg (27.0-34.0); Mean Corpuscular Volume 90.2 fL (80.0-100.0); Mean Platelet Volume 8.3 fL (7.0-11.0); Platelet Count 185 th/mm3 (150-450); Red Blood Count 2.31 mil/mm3 (4.00-5.30); Red Cell Distribution Width 16.7 % (11.6-17.2); White Blood Count 5.7 th/mm3 (4.0-11.0)
[2018-03-31 08:28] LABS: Hematocrit 20.8 % (35.0-46.0)
[2018-03-31 08:41] LABS: Anion Gap 7 meq/L (5-15); Blood Urea Nitrogen 15 mg/dL (7-18); Calcium 7.3 mg/dL (8.5-10.1); Carbon Dioxide 26.3 meq/L (21.0-32.0); Chloride 105 meq/L (98-107); Glomerular Filtration Rate Greater Than 89 mL/min (>89); Glucose,Random 89 mg/dL (74-106); Potassium 3.9 meq/L (3.5-5.1); Sodium 138 meq/L (136-145)
[2018-03-31 08:53] LABS: Total Protein 5.2 g/dL (6.4-8.2)
[2018-03-31] MEDS: Insulin NovoLIN Regular Correctional Sugar Inj SQ SCH ×2 (09:36→20:05)
[2018-03-31] MEDS: Gabapentin 300 MG Capsule PO SCH ×3 (09:37→17:50)
[2018-03-31] MEDS: Heparin Central Flush 100 UNIT/ML 5 ML Vial IV.FLUSH SCH (09:38)
[2018-03-31] MEDS: Chlorhexidine 0.12% Oral Kit 15 ML UDC OROPHARYNG SCH ×2 (09:38→20:03)
--- NOTE | 2018-03-31 13:37 | P.PNPAL ---
Reason for Visit Reason for visit: a. To assist with evaluation and management of symptoms including: dyspnea; generalized weakness; pain b. To assist medical decision maker(s) with: better understanding of current medical conditions; weighing benefits/burdens of medical treatment options; making medical treatment decisions. . Subjective Subjective/Interval History: Pt is a 62 year old female admitted for weakness 01/24 and found to of SAH. Went to [facility] for c6 mass resect (results neg). Pt also has lupus nephritis. Was in [place] 02/27 then went back to the hospital with Blood ESBL and multiple complication. Pt intbated 03/11, Pt is s/p trach and peg. Patient has had fevers earlier this week, but no elevated temps since yesterday. T MRI of cervical spine show persistent signal in the cord at C5 - C6 level. More suspected edema with in the cord c4-c7. Head MRI show 2 small persistent enchancing lesions without significant mass effect or edema seen in left occipital and left paritel lobbe. Unsure if these are infections. There is scattered focal areas of dymyelination of the cerebral whtie matter. Fevers subsided the past 24 hours. Pt's spouse at bedside, she open eyes but not engaging on my visit. Family/Friend Interactions: Patient's family endorse she was more alert and interactive. I reviewed labs, imaging, and clinical conditions. Goals of care reviewed. He states "Please doctor, continue to do everything you can." Goals remains aggressive. Advance Directives Living Will: Never completed Health Care Surrogate: Never completed Durable Power of [employer]: Never completed Health Care Surrogate Name and Number: No written designation of health care surrogate Documented care wishes:: No written documentation of health care preferences/wishes. . Objective Vital Signs: Vital Signs 03/30/18 14:00 03/30/18 16:00 03/30/18 16:26 Temperature 100.5 F H Pulse Rate 74 72 109 H Respiratory Rate 28 H 32 H Blood Pressure 111/73 Pulse Oximetry 100 100 03/30/18 18:00 03/30/18 19:24 03/30/18 20:00 Temperature 97.6 F Pulse Rate 75 109 H 109 H Respiratory Rate 16 18 Blood Pressure 93/60 L Pulse Oximetry 100 100 03/30/18 21:29 03/30/18 23:15 03/31/18 00:00 Temperature 98.9 F Pulse Rate 107 H 106 H 109 H Respiratory Rate 22 23 Blood Pressure 90/61 L Pulse Oximetry 100 03/31/18 00:30 03/31/18 02:00 03/31/18 04:00 Temperature 99.6 F Pulse Rate 109 H 110 H Respiratory Rate 20 18 Blood Pressure 102/61 Pulse Oximetry 100 100 03/31/18 04:10 03/31/18 06:00 03/31/18 08:00 Temperature 99.5 F Pulse Rate 105 H 111 H 105 H Respiratory Rate 19 28 H Blood Pressure 107/67 Pulse Oximetry 100 100 03/31/18 08:54 03/31/18 10:00 03/31/18 11:36 Temperature Pulse Rate 109 H 110 H Respiratory Rate 27 H 28 H Blood Pressure Pulse Oximetry 100 03/31/18 11:52 03/31/18 12:00 Temperature 97.7 F Pulse Rate 104 H 104 H Respiratory Rate 28 H 34 H Blood Pressure 91/63 L Pulse Oximetry 100 100 Intake & Output 03/30/18 03/31/18 03/31/18 18:59 06:59 18:59 Intake Total 1628.0 / 1628.0 2206 / 2206 590 / 590 Output Total 4300 / 4300 2725 / 2725 1800 / 1800 Balance -2672.0 / -2672.0 -519 / -519 -1210 / -1210 Weight 65.6 kg Intake: IV 1048.0 / 1048.0 1500 / 1500 Bactrim Inj 368 MG In D5W Inj 523 / 523 1000 / 1000 500 ML @ 348.667 mls/hr IV.SIG Q12H KARINA Rx#:[id number] Vancomycin Inj 1,250 MG In NS 525.0 / 525.0 500 / 500 Inj 250 ML @ 250 mls/hr IV.SIG Q12H KARINA Rx#:[id number] Tube Feeding 480 / 480 506 / 506 490 / 490 Tube Irrigant 50 / 50 Water Bolus Amount 100 / 100 200 / 200 50 / 50 Output: Urine Amount (Catheter) 4300 / 4300 2725 / 2725 1800 / 1800 Straight 4300 / 4300 2725 / 2725 1800 / 1800 Other: Date of Last Bowel Movement 03/30/18 03/30/18 # Bowel Movements 1 # Incontinent Bowel Movements 2 1 Physical Exam: CONSTITUTIONAL/GENERAL: Thin, frail-appearing, weak appearing, lethargic, mechanically ventilated in a MICU bed. No obvious distress. Generalized edema. TUBES/LINES/DRAINS: Right subclavian line; peripheral IVs; soft wrist restraints; Coleman catheter. Tracheostomy SKIN: No jaundice, rashes, or lesions. Generalized edema in the extremities. No wounds seen anteriorly. Skin temperature appropriate. Not diaphoretic. NECK: Tracheostomy. CARDIOVASCULAR: Regular rate and rhythm without murmur. No JVD. Peripheral pulses weak.+ Significant generalized edema. RESPIRATORY/CHEST: Symmetric, unlabored respirations. Breath sounds equal bilaterally. Lungs are clear, diminished. GASTROINTESTINAL: Abdomen soft, non-tender, nondistended. No hepato-splenomegaly , or palpable masses. No guarding. Bowel sounds present. GENITOURINARY: Without palpable bladder distension. Coleman catheter in place. MUSCULOSKELETAL: Extremities without clubbing, cyanosis. Significant pitting edema in all extremities. No mottling. NEUROLOGICAL: Sedated. Lethargic. Opens eyes briefly to stimulation. follow some commands PSYCHIATRIC: Unable to assess due to level of responsiveness. . . Diagnostic Tests Laboratory: Laboratory Results - last 72 hr 03/28/18 03/29/18 03/29/18 20:33 04:00 04:00 WBC 5.4 RBC 2.48 L Hgb 7.6 L Hct 22.8 L MCV 91.9 MCH 30.7 MCHC 33.4 RDW 16.5 Plt Count 154 MPV 8.7 Neut % (Auto) 76.3 H Lymph % (Auto) 15.6 [place] % (Auto) 7.0 Eos % (Auto) 0.7 Baso % (Auto) 0.4 Neut # (Auto) 4.1 Lymph # (Auto) 0.8 L [place] # (Auto) 0.4 Eos # (Auto) 0.0 Baso # (Auto) 0.0 WBC Differential . Differential Comment Auto diff final Sodium Potassium Chloride Carbon Dioxide Anion Gap BUN Creatinine Estimated GFR POC Glucose 101 Random Glucose Osmolality Calcium Prot Corrected Calcium Phosphorus Magnesium Total Bilirubin AST ALT Alkaline Phosphatase Ammonia 23 Total Protein Albumin Ur Specific [place] Urine Osmolality Stl C.difficile Tox PCR St C. diff Tox Epid 027 Vancomycin Trough 03/29/18 03/29/18 03/29/18 04:00 08:45 21:34 WBC RBC Hgb Hct MCV MCH MCHC RDW Plt Count MPV Neut % (Auto) Lymph % (Auto) [place] % (Auto) Eos % (Auto) Baso % (Auto) Neut # (Auto) Lymph # (Auto) [place] # (Auto) Eos # (Auto) Baso # (Auto) WBC Differential Differential Comment Sodium 138 Potassium 4.2 Chloride 105 Carbon Dioxide 27.2 Anion Gap 6 BUN 15 Creatinine Less than 0.15 L Estimated GFR Greater than 89 POC Glucose 120 H Random Glucose 134 H Osmolality Calcium 7.0 L* Prot Corrected Calcium 8.4 L Phosphorus Magnesium Total Bilirubin AST ALT Alkaline Phosphatase Ammonia Total Protein 4.6 L Albumin Ur Specific [place] Urine Osmolality Stl C.difficile Tox PCR Negative St C. diff Tox Epid 027 Negative Vancomycin Trough 03/30/18 03/30/18 03/30/18 05:50 05:50 05:50 WBC 6.0 RBC 2.41 L Hgb 7.3 L Hct 21.7 L MCV 90.3 MCH 30.5 MCHC 33.8 RDW 16.8 Plt Count 179 MPV 8.4 Neut % (Auto) 74.1 H Lymph % (Auto) 18.6 [place] % (Auto) 6.8 Eos % (Auto) 0.4 Baso % (Auto) 0.1 Neut # (Auto) 4.5 Lymph # (Auto) 1.1 [place] # (Auto) 0.4 Eos # (Auto) 0.0 Baso # (Auto) 0.0 WBC Differential . Differential Comment Auto diff final Sodium 137 Potassium 3.8 Chloride 103 Carbon Dioxide 25.7 Anion Gap 8 BUN 10 Creatinine Cancelled 0.26 L Estimated GFR Cancelled Greater than 89 POC Glucose Random Glucose 159 H Osmolality Calcium 7.4 L* Prot Corrected Calcium 8.6 Phosphorus 3.3 Magnesium 1.6 Total Bilirubin 0.2 AST 25 ALT 19 Alkaline Phosphatase 416 H Ammonia Total Protein 4.9 L Albumin 1.0 L Ur Specific [place] Urine Osmolality Stl C.difficile Tox PCR St C. diff Tox Epid 027 Vancomycin Trough 18.3 H 03/30/18 03/31/18 03/31/18 20:19 07:35 07:35 WBC 5.7 RBC 2.31 L Hgb 7.2 L Hct 20.8 L* MCV 90.2 MCH 31.1 MCHC 34.4 RDW 16.7 Plt Count 185 MPV 8.3 Neut % (Auto) Lymph % (Auto) [place] % (Auto) Eos % (Auto) Baso % (Auto) Neut # (Auto) Lymph # (Auto) [place] # (Auto) Eos # (Auto) Baso # (Auto) WBC Differential Differential Comment Sodium 138 Potassium 3.9 Chloride 105 Carbon Dioxide 26.3 Anion Gap 7 BUN 15 Creatinine 0.16 L Estimated GFR Greater than 89 POC Glucose 120 H Random Glucose 89 Osmolality Calcium 7.3 L* Prot Corrected Calcium 8.3 L Phosphorus Magnesium Total Bilirubin AST ALT Alkaline Phosphatase Ammonia Total Protein 5.2 L Albumin Ur Specific [place] Urine Osmolality Stl C.difficile Tox PCR St C. diff Tox Epid 027 Vancomycin Trough 03/31/18 03/31/18 03/31/18 07:35 07:35 07:35 WBC RBC Hgb Hct MCV MCH MCHC RDW Plt Count MPV Neut % (Auto) Lymph % (Auto) [place] % (Auto) Eos % (Auto) Baso % (Auto) Neut # (Auto) Lymph # (Auto) [place] # (Auto) Eos # (Auto) Baso # (Auto) WBC Differential Differential Comment Sodium Potassium Chloride Carbon Dioxide Anion Gap BUN Creatinine Estimated GFR POC Glucose Random Glucose Osmolality 282 Calcium Prot Corrected Calcium Phosphorus Magnesium Total Bilirubin AST ALT Alkaline Phosphatase Ammonia Total Protein Albumin Ur Specific [place] 1.005 Urine Osmolality 255 L Stl C.difficile Tox PCR St C. diff Tox Epid 027 Vancomycin Trough 03/31/18 11:45 WBC RBC Hgb Hct MCV MCH MCHC RDW Plt Count MPV Neut % (Auto) Lymph % (Auto) [place] % (Auto) Eos % (Auto) Baso % (Auto) Neut # (Auto) Lymph # (Auto) [place] # (Auto) Eos # (Auto) Baso # (Auto) WBC Differential Differential Comment Sodium Potassium Chloride Carbon Dioxide Anion Gap BUN Creatinine Estimated GFR POC Glucose 124 H Random Glucose Osmolality Calcium Prot Corrected Calcium Phosphorus Magnesium Total Bilirubin AST ALT Alkaline Phosphatase Ammonia Total Protein Albumin Ur Specific [place] Urine Osmolality Stl C.difficile Tox PCR St C. diff Tox Epid 027 Vancomycin Trough Result Diagrams: 03/31/18 07:35 03/31/18 07:35 Microbiology: Microbiology 03/27/18 14:25 Aerobic Blood Culture - Preliminary Blood - Line No growth in 4 days Anaerobic Blood Culture - Preliminary No growth in 4 days 03/27/18 15:01 Aerobic Blood Culture - Preliminary Blood - Line No growth in 4 days Anaerobic Blood Culture - Preliminary No growth in 4 days 03/27/18 19:45 Gram Stain - Final Sputum - Tracheal Aspirate Sputum Culture - Final Stenotrophomonas maltophilia Procedures: Intubation and mechanical ventilation PEG tube placement 03/23/18 Tracheostomy / Bronchoscopy 03/24/18 Assessment and Plan - Disease Oriented Problem List (1) Pancytopenia (2) Bacteremia (3) Rheumatoid arthritis (4) Subarachnoid hemorrhage (5) Thrombocytopenia (6) Anemia (7) Hypothyroidism (8) Diabetes mellitus (9) Lupus (systemic lupus erythematosus) (10) S/P laminectomy with spinal fusion Comment: for removal of benign tumor at [facility] 02/03/2018. 90% of tumor was removed. - Symptom Scale (1) Pain 0-10 Scale: Unable to quantify (2) Dyspnea 0-10 Scale: Unable to quantify (3) Generalized weakness 0-10 Scale: Unable to quantify Pertinent Non-Medical Issues: Psychosocial: Originally from [place]. Has lived in [place] since age 15 - - initially in [facility], and more recently in [place]. Patient is . Has 2 daughters --Lida lives in [place]; Sylvie lives in [place]. Spiritual: Patient alternates between Catholicism and protestantism. Appreciate supervisor production department visits. Legal: No advance directives. Ethical issues impacting care: Patient has periods of being awake and alert on the ventilator but has still not appeared to be capacitated to make her own health care decisions at least since 03/22/18 . Important Contacts: Teresa Willett (daughter) [phone] Dileep Willett (son in law) [phone] Asher (spouse) Lida (daughter) . Prognosis: Prognostication is challenging in this patient. She apparently began having significant weight loss and progressive generalized weakness dating back to April 2017. She was diagnosed with thyroid problems. There was also blood loss and thrombocytopenia. Patient also has lupus. She did seem to improve initially after her neurosurgery at [facility]. However she is quite debilitated. She seems to have had a new hemorrhage since her surgery. She developed septic shock after just a few days in rehab. It is unclear at this point what her neurologic recovery would look like. It is also unclear what is caused her thrombocytopenia and blood loss. Family reports that doctors at [facility] had wanted both a kidney biopsy and a bone marrow biopsy. The patient certainly has a long, hard, road ahead of her if she chooses aggressive care and due to her level of debility is likely to have complications along the way. . Code Status: Full Code Plan: == Code Status: FULL CODE. Family has opted for aggressive care including trach and PEG and at time of last conversation were wishing for full code status. == Decision Making: Patient has periods of being awake and alert but has not demonstrated the ability during those periods to have insight into her illness and to be able to weigh the benefits/burdens of treatment options. Therefore, she remains incapacitated. Proxy decision making falls to her spouse under [place] Statutes. At this time the spouse is consulting with the 2 daughters and son- in-law to help make medical decisions. == Goals of medical treatment: Family was hoping that patient would be awake and alert enough to make her own decisions. This has not happen. Family opted for a further trial of aggressive treatments including trach/PEG. Remains FULL CODE. Goals reviewed again 03/31: Patient's family endorse she was more alert and interactive. Family states "Please doctor, continue to do everything you can." Goals remains aggressive. == Symptoms * Pain: Pain has been in the neck and back. Long history of arthritis pain impacting multiple joints from both lupus and rheumatoid arthritis. Patient also has other probable sources of discomfort including prolonged bedbound status; orotracheal intubation; orogastric intubation; vascular access line; restraints; urinary catheter and now from recent PEG and Trach. Most recent nursing pain scores are in 4-6 range. Needing at least 2 Tramadol 50 mg / day. * Dyspnea: Dyspnea appears adequately controlled by mechanical ventilation. No history of underlying respiratory problems. Possible pneumonia. May have some diaphragmatic weakness from spinal injury impacting her ability to wean off vent. Patient will probably need correction vent management -- will likely end up at LTAC if funding available. * Encephalopathy: Has periods of wakefulness, but as noted above, does hot have cognitive abilities at this point to weigh benefits/burdens of treatment options and make her own health care decisions. == Infection: Continues to have low-grade fevers and a significant bandemia. Source is unclear. Neurosurgery and radiology has suggested that current MRI findings may be consistent with infection. 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 Source of this is unclear. Hematology and oncology have recommended a bone marrow biopsy. May want to consider getting this bone marrow biopsy sooner rather than waiting as it might impact prognostication of life expectancy and help family weigh continuing aggressive care vs comfort are. == Palliative care will continue to follow to assist with symptom management and to further clarify goals of medical treatment as the clinical course evolves.
[2018-03-31] MEDS: Collagenase Oint 30 GM Tube TOPICAL SCH (14:17)
--- NOTE | 2018-03-31 16:10 | P.PNID ---
Subjective Remarks: Patient is on CPAP. Sleepy. received Oxycodone. No distress. Being straight catheterized for urine 1000 cc last. Afebrile. CXR noted. Sputum culture had Stenotrophomonas from 03/11/2018, 03/27/18. post tracheostomy and PEG tube insertion 03/24/2018. Antibiotics: Vancomycin Bactrim. Lines: Right upper extremity PICC line. Past Medical History: Diabetes mellitus, hypertension, hypothyroidism, systemic lupus erythematosus, rheumatoid arthritis, anemia, recent subarachnoid hemorrhage, C6 mass resection, hysterectomy, bladder sling, appendectomy, C4-C7 laminectomy, C4-T1 posterior fusion. Allergies/Adverse Reactions: Allergies codeine Allergy (Intermediate, Verified 01/24/18 17:12) nitroglycerin Adverse Reaction (Severe, Verified 01/25/18 09:14) Nausea/Vomiting Objective Vital Signs 03/30/18 16:26 03/30/18 18:00 03/30/18 19:24 Temperature Pulse Rate 109 H 75 109 H Respiratory Rate 32 H 16 Blood Pressure Pulse Oximetry 100 100 03/30/18 20:00 03/30/18 21:29 03/30/18 23:15 Temperature 97.6 F Pulse Rate 109 H 107 H 106 H Respiratory Rate 18 22 Blood Pressure 93/60 L Pulse Oximetry 100 03/31/18 00:00 03/31/18 00:30 03/31/18 02:00 Temperature 98.9 F Pulse Rate 109 H 109 H Respiratory Rate 23 20 Blood Pressure 90/61 L Pulse Oximetry 100 100 03/31/18 04:00 03/31/18 04:10 03/31/18 06:00 Temperature 99.6 F Pulse Rate 110 H 105 H 111 H Respiratory Rate 18 19 Blood Pressure 102/61 Pulse Oximetry 100 100 03/31/18 08:00 03/31/18 08:54 03/31/18 10:00 Temperature 99.5 F Pulse Rate 105 H 109 H 110 H Respiratory Rate 28 H 27 H Blood Pressure 107/67 Pulse Oximetry 100 100 03/31/18 11:36 03/31/18 11:52 03/31/18 12:00 Temperature 97.7 F Pulse Rate 104 H 104 H Respiratory Rate 28 H 28 H 34 H Blood Pressure 91/63 L Pulse Oximetry 100 100 03/31/18 14:00 Temperature Pulse Rate 104 H Respiratory Rate Blood Pressure Pulse Oximetry Intake & Output 07/26/18 07/27/18 07/27/18 18:59 06:59 18:59 Intake Total 1628.0 / 1628.0 2206 / 2206 1113 / 1113 Output Total 4300 / 4300 2725 / 2725 1800 / 1800 Balance -2672.0 / -2672.0 -519 / -519 -687 / -687 Weight 65.6 kg Intake: IV 1048.0 / 1048.0 1500 / 1500 523 / 523 Bactrim Inj 368 MG In D5W Inj 523 / 523 1000 / 1000 523 / 523 500 ML @ 348.667 mls/hr IV.SIG Q12H KARINA Rx#:[id number] Vancomycin Inj 1,250 MG In NS 525.0 / 525.0 500 / 500 Inj 250 ML @ 250 mls/hr IV.SIG Q12H KARINA Rx#:[id number] Tube Feeding 480 / 480 506 / 506 490 / 490 Tube Irrigant 50 / 50 Water Bolus Amount 100 / 100 200 / 200 50 / 50 Output: Urine Amount (Catheter) 4300 / 4300 2725 / 2725 1800 / 1800 Straight 4300 / 4300 2725 / 2725 1800 / 1800 Other: Date of Last Bowel Movement 03/30/18 03/30/18 # Bowel Movements 1 # Incontinent Bowel Movements 2 1 03/24/18 14:15 Bronchial Washings - Right Lower Lobe Fungal Smear - Final No fungal elements seen 03/24/18 14:15 Bronchial Washings - Right Lower Lobe Fungal Culture - Preliminary No growth in 1 week 03/24/18 14:15 Bronchial Washings - Right Lower Lobe Acid Fast Bacilli Smear - Final No acid fast bacilli seen 03/24/18 14:15 Bronchial Washings - Right Lower Lobe Mycobacterial Culture - Preliminary No growth in 1 week 03/27/18 14:25 Blood - Line Aerobic Blood Culture - Preliminary No growth in 4 days 03/27/18 14:25 Blood - Line Anaerobic Blood Culture - Preliminary No growth in 4 days 03/27/18 15:01 Blood - Line Aerobic Blood Culture - Preliminary No growth in 4 days 03/27/18 15:01 Blood - Line Anaerobic Blood Culture - Preliminary No growth in 4 days 03/27/18 19:45 Sputum - Tracheal Aspirate Gram Stain - Final 03/27/18 19:45 Sputum - Tracheal Aspirate Sputum Culture - Final Stenotrophomonas maltophilia Lab - Hematology Results 03/30/18 03/31/18 05:50 07:35 WBC 6.0 5.7 RBC 2.41 L 2.31 L Hgb 7.3 L 7.2 L Hct 21.7 L 20.8 L* MCV 90.3 90.2 MCH 30.5 31.1 MCHC 33.8 34.4 RDW 16.8 16.7 Plt Count 179 185 MPV 8.4 8.3 Neut % (Auto) 74.1 H Lymph % (Auto) 18.6 [place] % (Auto) 6.8 Eos % (Auto) 0.4 Baso % (Auto) 0.1 Neut # (Auto) 4.5 Lymph # (Auto) 1.1 [place] # (Auto) 0.4 Eos # (Auto) 0.0 Baso # (Auto) 0.0 WBC Differential . Differential Comment Auto diff final Lab - Chemistry Results 03/29/18 03/30/18 03/30/18 21:34 05:50 05:50 Sodium 137 Potassium 3.8 Chloride 103 Carbon Dioxide 25.7 Anion Gap 8 BUN 10 Creatinine Cancelled 0.26 L Estimated GFR Cancelled Greater than 89 POC Glucose 120 H Random Glucose 159 H Osmolality Calcium 7.4 L* Prot Corrected Calcium 8.6 Phosphorus 3.3 Magnesium 1.6 Total Bilirubin 0.2 AST 25 ALT 19 Alkaline Phosphatase 416 H Total Protein 4.9 L Albumin 1.0 L 03/30/18 03/31/18 03/31/18 20:19 07:35 07:35 Sodium 138 Potassium 3.9 Chloride 105 Carbon Dioxide 26.3 Anion Gap 7 BUN 15 Creatinine 0.16 L Estimated GFR Greater than 89 POC Glucose 120 H Random Glucose 89 Osmolality 282 Calcium 7.3 L* Prot Corrected Calcium 8.3 L Phosphorus Magnesium Total Bilirubin AST ALT Alkaline Phosphatase Total Protein 5.2 L Albumin 03/31/18 11:45 Sodium Potassium Chloride Carbon Dioxide Anion Gap BUN Creatinine Estimated GFR POC Glucose 124 H Random Glucose Osmolality Calcium Prot Corrected Calcium Phosphorus Magnesium Total Bilirubin AST ALT Alkaline Phosphatase Total Protein Albumin Imaging: ITS Impressions Head CT 03/12/18 06:59 CONCLUSION: 1. No acute intracranial abnormality. 2. Minimal fluid in the mastoid air cells. Abdomen X-Ray 03/21/18 00:00 CONCLUSION: Nasogastric or orogastric tube tip in distal stomach. Cervical Spine MRI 03/27/18 00:00 CONCLUSION: 1. Persistent well-defined area of fluid signal in the cord at the C5-C6 level. There is more ill-defined suspected edema within the cord at the C4-C7 levels. This appearance is unchanged when compared to the prior MRI examination. 2. Status post laminectomy at the C4-C7 levels with postsurgical hardware seen at the C4-T1 levels. 3. Prominence of the posterior epidural space at the C4-C6 levels with a possible dural defect posteriorly seen at the C5-C6 level. This appearance is unchanged. A small amount of fluid is seen to extend posterior to the suspected dural defect. 4. Persistent prevertebral soft tissue swelling. 1. Head MRI 03/27/18 00:00 CONCLUSION: 1. 2 small persistent enhancing lesions without significant mass effect or surrounding edema seen in the left occipital and left parietal lobe. These are unchanged. Multiple lesions raises the possibility of metastatic disease versus infection or underlying vascular malformations such as cavernous angiomas. Significant mass effect or edema is not seen. 2. Scattered focal areas of demyelination the cerebral white matter. Chest X-Ray 03/30/18 06:00 CONCLUSION: 1. Persistent left basilar consolidation with probable associated effusion. 2. There appears to be some improving aeration in the right hemithorax 3. Stable position of life-support tubes Physical Exam: GENERAL: No acute distress. HEENT: Pupils reactive to light. No icterus. NECK: Supple. No swelling. LUNGS: Decreased breath sounds. No rhonchi. HEART: Regular S1 and S2. No murmurs, rubs or gallops. ABDOMEN: Soft, nontender. Normoactive bowel sounds. EXTREMITIES: No clubbing or cyanosis. No edema. SKIN: No rash. NEUROLOGIC: left hemiparesis. Decreased strength. PSYCH: Unable to fully assess. Lines: PICC line without evidence of infection. Assessment and Plan - Plan IMPRESSION: New fever. Sputum culture has Stenotrophomonas. Bronchoscopy culture has Stenotrophomonas resistant to Levaquin. Pneumonia due to Stenotrophomonas. ESBL E. coli bacteremia. Treated and resolved.. ESBL E. coli UTI. Treated and resolved. Acute respiratory failure. Post tracheostomy. Status post cervical spine surgery. Brain lesions on MRI. 3 enhancing nodular lesions seen in the left parietal area. Recent subarachnoid hemorrhage. Left hemiparesis. Recommendations: Continue Bactrim IV for Stenotrophomonas PNA. Plan on 7 - 10 days. Stop vancomycin. Monitor clinical status. Monitor temperature. Discussed with
[2018-03-31] MEDS: Acetaminophen 325 MG Tablet PO PRN (20:35)
[2018-04-01] MEDS: Oral Hygiene Kit OROPHARYNG SCH ×4 (00:11→15:26)
[2018-04-01] MEDS: WATER IV.SIG SCH ×4 (03:00→15:26)
[2018-04-01] MEDS: SULFAMETHOX IV.SIG SCH ×4 (03:00→15:26)
[2018-04-01] MEDS: TRIMETHOPRIM IV.SIG SCH ×4 (03:00→15:26)
[2018-04-01] MEDS: Metoprolol Tartrate 25 MG Tablet PO SCH ×4 (03:00→20:08)
[2018-04-01] MEDS: DEXTROSE 5% IV.SIG SCH ×4 (03:00→15:26)
[2018-04-01] MEDS: Hypromellose 0.3% Opth Gel 10 GM Bottle EACH EYE SCH ×3 (03:01→22:04)
[2018-04-01] MEDS: Levothyroxine 50 MCG Tablet PO SCH (05:53)
[2018-04-01 06:40] LABS: Mean Corpuscular HGB Conc 33.5 % (32.0-36.0); Mean Corpuscular Hemoglobin 30.7 pg (27.0-34.0); Mean Corpuscular Volume 91.7 fL (80.0-100.0); Mean Platelet Volume 8.6 fL (7.0-11.0); Platelet Count 181 th/mm3 (150-450); Red Blood Count 2.04 mil/mm3 (4.00-5.30); Red Cell Distribution Width 17.2 % (11.6-17.2); White Blood Count 4.6 th/mm3 (4.0-11.0)
[2018-04-01 06:46] LABS: Hematocrit 18.7 % (35.0-46.0); Hemoglobin 6.2 gm/dL (11.6-15.3)
[2018-04-01] MEDS ORDERED: Sodium Chlor 0.9% Inj 250 ML IV.SIG SCH (07:00)
[2018-04-01 07:21] LABS: Anion Gap 8 meq/L (5-15); Blood Urea Nitrogen 17 mg/dL (7-18); Carbon Dioxide 23.7 meq/L (21.0-32.0); Chloride 97 meq/L (98-107); Glomerular Filtration Rate Greater Than 89 mL/min (>89); Glucose,Random 389 mg/dL (74-106); Potassium 3.6 meq/L (3.5-5.1); Sodium 129 meq/L (136-145)
[2018-04-01 07:51] LABS: Total Protein 4.7 g/dL (6.4-8.2)
[2018-04-01] MEDS: Gabapentin 300 MG Capsule PO SCH ×3 (08:44→17:14)
[2018-04-01] MEDS: Heparin Central Flush 100 UNIT/ML 5 ML Vial IV.FLUSH SCH (08:44)
[2018-04-01] MEDS: Chlorhexidine 0.12% Oral Kit 15 ML UDC OROPHARYNG SCH ×2 (08:45→20:08)
[2018-04-01] MEDS: Insulin NovoLIN Regular Correctional Sugar Inj SQ SCH ×2 (08:46→20:08)
[2018-04-01] MEDS ORDERED: Sod Chloride 0.9% Inj 1,000 ML IV.SIG ONE (12:24)
--- NOTE | 2018-04-01 12:32 | P.PNCC ---
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 she was sent to [facility] for procedural management of these. She was then transferred to [facility] on 02/28. Please see the dictated hospitalist consult note on 02/28 on admission to [facility] for a detailed record of the hospital course while at [facility]. Today, she was found to be very tachycardic in the 160s and hypotensive with sbp in the 70s. She was emergently transferred to the ICU after rapid response was called for evaluation and management of her hypotension. Of note, she did not have iv access. I met her on arrival to the ICU. I placed 2 18g piv. 12-lead EKG confirms sinus tachycardia. I due to the fast rate, I gave 6mg adenosine to slow it down diagnostically, and it slowed down temporarily to a HR in the 70s, confirming sinus rhythm. I performed bedside critical care echocardiography which demonstrates grossly preserve biventricular function. in particular, RV is decompressed and well-functioning. IVC is completely collapsable. no pericardial effusion. I gave her 3L NS bolus ivf which improved her SBP to 110s and decreased her HR to 110s. She is afebrile. stat CBC shows anemia (history of recent femoral artery pseudoaneurysm), CMP demonstrates elevated AST and Alk phos, elevated lactate at 3.7. Cr elevated above baseline. Patient denies any complaints to me. she is mostly cuban speaking, but communicates in basic Maltese. specifically denies chest pain, shortness of breath, fever/chills, nausea, vomiting, abdominal pain, constipation, diarrhea. I discussed with her family, she has been eating and drinking well even up to today. ROS otherwise negative. 03/02 Patient is awake lying in bed in TRAV. On room air oxygen. T:103.2 this morning She was hypotensive overnight initially placed on Neosyn now off pressor with BP 147/67 with MAP 96. 03/03 No events overnight. Seems more awake and alert this morning. T: 100.2 at midnight. BP and HR better ( 119/58 with MAP 83mmHg). On no pressors. BC from 03/01: E.coli ESBL 6/30: clinically improving. slightly tachycardic. on appropriate therapy for her ESBL e. coli. denies complaints. hemodynamically stable. on room air. 03/05: Patient developed worsening respiratory distress yesterday and required endotracheal intubation and was placed on mechanical ventilation. Hypotension overnight for which patient was started on phenylephrine. Developed A. fib with RVR and was started on amiodarone gtt. 03/06 Patient remains sedated and intubated. Tmax 101.6, On Amio drip. 03/07 Patient remains intubated off sedation. s/p transfusion 2u PRBC yesterday. Tolerating tube feeds. Afebrile. Off Amio drip. 03/08 Patient remains intubated. T:100.9 last night. 03/09 No events overnight. Tolerated CPAP for approx 4 hrs yesterday. Off sedation. Afebrile. 03/10 No events overnight T:100.1 at 4am, Awake, patient was on CPAP for short time yesterday and placed back on PRVC mode for low TV and tachycardia. 03/11 No events overnight. Tolerated CPAP x 4hrs yesterday. T:100.6 yesterday. On no sedation. 03/12 Patient was extubated yesterday reintubated last night for resp distress and AMS. Afebrile. On Diprivan infusion for sedation. 03/13: Remains intubated critical, remains encephalopathy unresponsive off sedation. Afebrile EEG showed significant encephalopathy no seizures. Right subclavian central line placed, remains on Luis-Synephrine to keep map above 65 03/14: Remains encephalopathy again unresponsive. Eyes are open but no tracking did not follow commands. Remains leukopenic. Weaned off Luis-Synephrine. Not tolerating CPAP due to low tidal volume 03/15: Continues to fail CPAP due to low tidal volume. IV Levaquin added yesterday by ID for stenotrophomonas in the sputum. Remains encephalopathic did not follow commands but eyes are spontaneously open. I have requested neurology consult today 03/16: T-max 100.1. Currently 99. EEG has been performed. Does not follow commands. Tube feeds at 30 cc an hour. Positive BM. 03/17 Patient remains intubated on Precedex drip but awake. 03/18 T-current 100.7. Tolerating tube feeds at goal. Arousable the ventilator and follows command. Left side is chronically weaker. Discussed with Dr. Gutierrez /neurology. Reviewed MRI brain. Recommended evaluation by neurosurgery for abnormal MRI C-spine. Patient's CT surgeon at [facility] is Dr. Ku [phone] 03/19: T-max 100.7. Currently 99. Tachycardic. Tolerated CPAP trial. On the ventilator currently. Positive BM yesterday. 03/20 Patient was on Diprivan and Precedex drip overnight now off sedation. Afebrile. 03/21: no improvements. has been intubated for 17 days, and failed extubation quickly 03/12. needs trach and peg for further progress. 03/22: Afebrile. Intubation day #18. Patient currently contemplating trach and PEG options. Currently off dexmedetomidine drip. 03/23: Afebrile. Plan for PEG tube today. Awake and alert and interactive on the ventilator. Tube feeds are currently off. 03/24: Afebrile. Status post PEG tube by Dr. Orellana 03/23. Plan for percutaneous tracheostomy Dr. Serrano at 10 AM today 03/24. Tachycardic. Will replace phosphorus and magnesium this a.m. 03/25: Status post tracheostomy 03/[address] Serrano. Currently on PSV trial. No new issues overnight. Tube feeds at goal. 03/26: Low-grade temperatures overnight. Tube feeds have been restarted. Will start on CPAP trials today. 03/27: T-max 102.2. Blood cultures have been drawn today. Tube feeds of been resumed. Has been new concern about new altered mental status. Opens eyes but not following commands. MRI brain/C-spine ordered tonight 03/28: Afebrile today. MRI brain revealed 3 left parietal lesion/stable. MRI C- spine without significant change. Opens mouth to command for temperature today. Slight movement of bilateral upper extremities. 03/29: T-max 99.8. Currently afebrile. Slightly more interactive today. Tolerating tube feeds. Positive BM. 03/30: no changes. diarrhea which may be associated with continuous tube feeds: will transition to bolus tube feeds and add fiber to diet. 03/31: uop continues to be very high: straight caths with >1000mL q4h. will send urine SG and osms. sodium has remained stable for days- unlikely to be DI. could possibly be autodiuresis from chronic volume overload over the past hospitalization. otherwise, no other changes. Subjective 04/01: serum sodium dropped precipitously to 129 from 138 yesterday. urine output continues to be > 5L/day. urine studies and change in serum sodium are not consistent with DI. serum and urine osmolality not consistent with SIADH. could be cerebral salt wasting, but no clear reason for this either. clinically appears quite euvolemic, not dehydrated or volume overloaded. no peripheral edema anywhere. will be forced to increase sodium administration in the form of saline and ivf. Also, hgb dropped < 7 today. no signs of melena. no other evidence of bleeding. will send haptoglobin and LDH. Objective Vital Signs / I&O: Vital Signs 03/31/18 14:00 03/31/18 16:00 03/31/18 16:54 Temperature 37.3 C Pulse Rate 104 H 114 H 114 H Respiratory Rate 24 33 H Blood Pressure 107/69 Pulse Oximetry 99 03/31/18 16:55 03/31/18 18:00 03/31/18 20:00 Temperature 38.3 C H Pulse Rate 112 H 111 H Respiratory Rate 30 H 18 Blood Pressure 97/61 L Pulse Oximetry 100 100 03/31/18 21:13 03/31/18 21:55 04/01/18 00:00 Temperature 37.3 C Pulse Rate 109 H 110 H 100 H Respiratory Rate 24 23 Blood Pressure 101/60 Pulse Oximetry 100 100 04/01/18 01:12 04/01/18 02:00 04/01/18 04:00 Temperature 37.2 C Pulse Rate 99 H 97 H 92 H Respiratory Rate 22 19 Blood Pressure 96/54 L Pulse Oximetry 99 100 04/01/18 04:37 04/01/18 06:00 04/01/18 08:00 Temperature 36.8 C Pulse Rate 92 H 97 H 91 H Respiratory Rate 16 16 Blood Pressure 93/58 L Pulse Oximetry 100 100 04/01/18 08:17 04/01/18 09:20 04/01/18 09:35 Temperature 36.8 C 36.7 C Pulse Rate 92 H 95 H 96 H Respiratory Rate 23 26 H 25 H Blood Pressure 95/60 L 98/55 L Pulse Oximetry 100 100 100 04/01/18 10:00 04/01/18 11:44 04/01/18 11:46 Temperature Pulse Rate 97 H 99 H Respiratory Rate 26 H 26 H Blood Pressure Pulse Oximetry 100 Intake & Output 03/31/18 04/01/18 04/01/18 18:59 06:59 18:59 Intake Total 1433 / 1433 1620 / 1620 400 / 400 Output Total 2800 / 2800 3200 / 3200 Balance -1367 / -1367 -1580 / -1580 400 / 400 Weight 65.4 kg Intake: IV 523 / 523 1000 / 1000 Bactrim Inj 368 MG In D5W Inj 523 / 523 1000 / 1000 500 ML @ 348.667 mls/hr IV.SIG Q12H KARINA Rx#:[id number] Tube Feeding 730 / 730 400 / 400 Tube Irrigant 50 / 50 Water Bolus Amount 130 / 130 220 / 220 Intake (Blood Product) Amt 400 / 400 Rbc As-3 Leukoreduced Unit 400 / 400 [id number] Output: Urine Amount (Catheter) 2800 / 2800 3200 / 3200 Straight 2800 / 2800 3200 / 3200 Other: # Voids 2 Date of Last Bowel Movement 03/30/18 03/31/18 03/31/18 Result Diagrams: 04/01/18 04:11 04/01/18 04:11 Objective Remarks: GENERAL: Patient is 62 yo female patient currently on ventilator via tracheostomy resting in bed in no acute distress SKIN: Warm and dry. No rash. Sacral DTI HEAD: Normocephalic. EYES: No scleral icterus. No injection or drainage. NECK: Supple, trachea midline. No JVD. #8 Shiley percutaneous tracheostomy site is clean dry and intact. CARDIOVASCULAR: Tachycardic, RR. RESPIRATORY: Breath sounds equal bilaterally. No accessory muscle use. Diminished in the bases bilaterally. GASTROINTESTINAL: Abdomen soft, non-tender, nondistended. PEG tube site is clean dry and intact. MUSCULOSKELETAL: no edema today of the LEs. NEURO: Arousable and follows commands with bilateral upper extremities. She is not answering questions today.. She is Divehi-speaking and can understand some Maltese phrases. Assessment and Plan - Assessment and Plan Plan: Neuro/Psych: History of C6 vertebral aneurysm and underwent a C4 through T1 posterior fusion resection of the C6 mass which was negative for malignancy with 90% of mass removed, just showing inflammation, and a C4 through 7 laminectomy on 02/03/2018. Severe metabolic encephalopathy- resolving Recent aneurysmal subarachnoid hemorrhage treated at [facility] in January 2018 History of left occipital subarachnoid hemorrhage February 15, 2018 Cord edema possible hemorrhage within the cord level C7 through T1 Repeat CT brain showed no acute abnormalities. EEG significant encephalopathy Seen by Dr. Newberry from [facility]- No further neurosurgical intervention anticipated at this point. MRI brain: previously noted subarachnoid hemorrhage overlying the occipital lobes has resolved. Tiny trace of residual hemorrhage in the posterior lateral ventricles. Stable chronic white matter changes. No new or acute intracranial process. Neurology consult requested Dr. Arellano/follow-up has followed EEG: Mod. encephalopathy MRI brain 03/16 : There is a new area of nodular enhancement, abnormal FLAIR signal, and mild restricted diffusion at the baeza matter white matter junction in the left occipital lobe. 3 additional small areas of nodular enhancement measuring approximately 3 mm are also identified along the baeza matter surface in the left parietal high convexity. Etiology is nonspecific. MRI cervical spine 03/16: Persistent abnormal signal in the cord extending from C4 down to T1. Much of this likely related to edema. The edema appears to extend over a smaller area on the current exam. There is a linear area of increased signal seen on the T1 and T2-weighted images at the left-sided cord at the C7-T1 level which may represent an area of focal hemorrhage within the cord. Status post laminectomy with posterior fusion and hardware placed at the C4-T1 levels. Prevertebral soft tissue swelling. No focal fluid collection to suggest an abscess. Currently on gabapentin 600 mg 3 times daily/home medication on hold for neuropathy pain Currently on cyclobenzaprine 5 mg every 8 hours. Hold secondary to AMS Schedule oxycodone 2.5 mg by tube every 6 hours as needed breakthrough pain Acetaminophen 650 every 6 hours as needed fever/pain 1 through 5 Tramadol 50 mg every 8 hours as needed pain 6 through 10 C-collar has been removed/okayed by neurosurgery Her neurosurgeon is Dr. Ku [phone] MRI brain 03/27 - small persistent enhancing lesions without significant mass effect or surrounding edema seen in the left occipital and left parietal lobe. These are unchanged. Multiple lesions raises the possibility of metastatic disease versus infection or underlying vascular malformations such as cavernous angiomas. Significant mass effect or edema is not seen. Scattered focal areas of demyelination the cerebral white mattercervical spine 03/27 revealed MRI c spine - 03/27. Persistent well-defined area of fluid signal in the cord at the C5-C6 level. There is more ill-defined suspected edema within the cord at the C4-C7 levels. This appearance is unchanged when compared to the prior MRI examination. Status post laminectomy at the C4-C7 levels with postsurgical hardware seen at the C4-T1 levels. Prominence of the posterior epidural space at the C4-C6 levels with a possible dural defect posteriorly seen at the C5-C6 level. This appearance is unchanged. A small amount of fluid is seen to extend posterior to the suspected dural defect. Persistent prevertebral soft tissue swelling Pulm: Acute hypoxemic respiratory failure-status post percutaneous tracheostomy tube placement by Dr. Serrano 03/24 HCAP Extubated and reintubated on 03/11, failing CPAP trials due to low tidal volumes. Ventilator bundle Albuterol/ipratropium aerosols every 4 hours with albuterol aerosols every 2 hours. Dyspnea Daily CPAP trial CT pulmonary angiogram chest: No PE, minimal consolidative changes left base CV: A. fib/sinus tachycardia Septic shock- resolved. Hyperlipidemia Place on Lopressor 25mg Q6h Monitor HR and BP keep MAP>65mmHg. Pravachol 20mg daily for dyslipidemia - Elevated troponin, type II demand ischemia NSTEMI - Echo 03/06 EF 50-55% - Will not anticoagulate at this time given risk/benefit with recent head bleed Cortisol level: 41 Cards has followed Renal/FEN/: Urinary retention Severe hyponatremia Possible Cerebral salt wasting Monitor renal function, electrolytes replacement per protocol. Continue oxybutynin 5 mg every 8 hours continue straight cath q4h urine SG, osms, serum osms: not c/w DI. not c/w SIADH. patient does have recent history of SAH on 02/15, but we are > 21 days out from this, so unlikely to be cause of cerebral salt wasting. will start NaCl tabs 1gm po q8h 1L bolus NS x 1, then recheck sodium. if it responds favorably, will start NS mivf. drop in sodium occurred over < 24h, so can quickly correct. clinically does not appear hypervolemic, or dehydrated. appears quite euvolemic. GI: Status post PEG tube 03/[address] Sutton Monitor LFT's, CT abd/pelvis without evidence of overt acute cholecystitis Tube feeds- Glucerna 1.5 with goal rate 50ml/hr have been resumed Lansoprazole for GI prophylaxis Docusate sodium/senna 1 tablet twice daily for bowel regimen ID: Urinary tract infection ESBL E. coli bacteremia Pneumonia with Stenotrophomonas s/p Septic shock ID is following Continue with abx per ID (/trimethoprim/sulfamethoxazole, vancomycin) levofloxacin discontinued 03/28 03/24 -bronchoscopy -Stenotrophomonas 03/16 -blood cultures 2 -negative 03/11, 03/15 sputum Stenotrophomonas 03/07: Sputum cx: NG 03/08, 03/09 BC: NGTD 03/06 BC Coag negative staph 03/05 BC: E.coli bacteremia 03/01 BC: E.coli ESBL 03/01 Urine cx: GNR Heme: Normocytic anemia -Monitor CBC, s/p 2u PRBC 03/06 Heme is following- Dr. Miller Hep PLT ab negative FEN TIBC both low Transfuse one PRBC 03/18 MSKRheum Sacral deep tissue injury SLE positive History of RF - present on admission - does not appear grossly infected - likely not the source of infection - management per wound care nurse Endo: SSI if needed for glycemic control On levothyroxine 50mcg daily. TSH: 0.47 GI prophylaxis- On lansoprazole 30 mg daily DVT prophylaxis- SCD, hold Heparin Sq due to recent [employer] bleed in January ( MRI brain 01/29) along with likely current blood at site of C-spine surgery 02/20 Lines: Right subclavian CVL. Discontinued 03/23 PICC right upper extremity placed 03/23 OVERALL IMPRESSION: clinically deconditioned. needs aggressive PT. LTAC would be appropriate. new electrolyte abnormalities are severe and need immediate attention.
[2018-04-01] MEDS: Sodium Chloride 1 GM Tablet PO SCH ×2 (13:44→22:04)
--- NOTE | 2018-04-01 14:02 | P.PNID ---
Subjective Remarks: ID COVERAGE Notes reviewed Patient is on CPAP. Afebrile BP ok Being evaluated for high UO. Sputum culture had Stenotrophomonas from 03/11/2018, 03/27/18. post tracheostomy and PEG tube insertion 03/24/2018. Antibiotics: Bactrim. Lines: Right upper extremity PICC line. Past Medical History: Diabetes mellitus, hypertension, hypothyroidism, systemic lupus erythematosus, rheumatoid arthritis, anemia, recent subarachnoid hemorrhage, C6 mass resection, hysterectomy, bladder sling, appendectomy, C4-C7 laminectomy, C4-T1 posterior fusion. Allergies/Adverse Reactions: Allergies codeine Allergy (Intermediate, Verified 01/24/18 17:12) nitroglycerin Adverse Reaction (Severe, Verified 01/25/18 09:14) Nausea/Vomiting Objective Vital Signs 03/31/18 16:00 03/31/18 16:54 03/31/18 16:55 Temperature 99.2 F Pulse Rate 114 H 114 H Respiratory Rate 24 33 H 30 H Blood Pressure 107/69 Pulse Oximetry 99 100 03/31/18 18:00 03/31/18 20:00 03/31/18 21:13 Temperature 101.0 F H Pulse Rate 112 H 111 H 109 H Respiratory Rate 18 24 Blood Pressure 97/61 L Pulse Oximetry 100 100 03/31/18 21:55 04/01/18 00:00 04/01/18 01:12 Temperature 99.1 F Pulse Rate 110 H 100 H 99 H Respiratory Rate 23 22 Blood Pressure 101/60 Pulse Oximetry 100 99 04/01/18 02:00 04/01/18 04:00 04/01/18 04:37 Temperature 98.9 F Pulse Rate 97 H 92 H 92 H Respiratory Rate 19 16 Blood Pressure 96/54 L Pulse Oximetry 100 100 04/01/18 06:00 04/01/18 08:00 04/01/18 08:17 Temperature 98.2 F Pulse Rate 97 H 91 H 92 H Respiratory Rate 16 23 Blood Pressure 93/58 L Pulse Oximetry 100 100 04/01/18 09:20 04/01/18 09:35 04/01/18 10:00 Temperature 98.2 F 98.1 F Pulse Rate 95 H 96 H 97 H Respiratory Rate 26 H 25 H Blood Pressure 95/60 L 98/55 L Pulse Oximetry 100 100 04/01/18 11:44 04/01/18 11:46 04/01/18 12:00 Temperature 98.2 F Pulse Rate 99 H 100 H Respiratory Rate 26 H 26 H 20 Blood Pressure 107/70 Pulse Oximetry 100 100 Intake & Output 03/31/18 04/01/18 04/01/18 18:59 06:59 18:59 Intake Total 1433 / 1433 1620 / 1620 400 / 400 Output Total 2800 / 2800 3200 / 3200 Balance -1367 / -1367 -1580 / -1580 400 / 400 Weight 65.4 kg Intake: IV 523 / 523 1000 / 1000 Bactrim Inj 368 MG In D5W Inj 523 / 523 1000 / 1000 500 ML @ 348.667 mls/hr IV.SIG Q12H KARINA Rx#:[id number] Tube Feeding 730 / 730 400 / 400 Tube Irrigant 50 / 50 Water Bolus Amount 130 / 130 220 / 220 Intake (Blood Product) Amt 400 / 400 Rbc As-3 Leukoreduced Unit 400 / 400 [id number] Output: Urine Amount (Catheter) 2800 / 2800 3200 / 3200 Straight 2800 / 2800 3200 / 3200 Other: # Voids 2 Date of Last Bowel Movement 03/30/18 03/31/18 03/31/18 03/27/18 14:25 Blood - Line Aerobic Blood Culture - Final No growth in 5 days 03/27/18 14:25 Blood - Line Anaerobic Blood Culture - Final No growth in 5 days 03/27/18 15:01 Blood - Line Aerobic Blood Culture - Final No growth in 5 days 03/27/18 15:01 Blood - Line Anaerobic Blood Culture - Final No growth in 5 days 03/24/18 14:15 Bronchial Washings - Right Lower Lobe Fungal Smear - Final No fungal elements seen 03/24/18 14:15 Bronchial Washings - Right Lower Lobe Fungal Culture - Preliminary No growth in 1 week 03/24/18 14:15 Bronchial Washings - Right Lower Lobe Acid Fast Bacilli Smear - Final No acid fast bacilli seen 03/24/18 14:15 Bronchial Washings - Right Lower Lobe Mycobacterial Culture - Preliminary No growth in 1 week Lab - Hematology Results 03/31/18 04/01/18 07:35 04:11 WBC 5.7 4.6 RBC 2.31 L 2.04 L Hgb 7.2 L 6.2 L* Hct 20.8 L* 18.7 L* MCV 90.2 91.7 MCH 31.1 30.7 MCHC 34.4 33.5 RDW 16.7 17.2 Plt Count 185 181 MPV 8.3 8.6 Lab - Chemistry Results 03/30/18 03/31/18 03/31/18 20:19 07:35 07:35 Sodium 138 Potassium 3.9 Chloride 105 Carbon Dioxide 26.3 Anion Gap 7 BUN 15 Creatinine 0.16 L Estimated GFR Greater than 89 POC Glucose 120 H Random Glucose 89 Osmolality 282 Calcium 7.3 L* Prot Corrected Calcium 8.3 L Total Protein 5.2 L 03/31/18 03/31/18 04/01/18 11:45 20:03 04:11 Sodium 129 L Potassium 3.6 Chloride 97 L D Carbon Dioxide 23.7 Anion Gap 8 BUN 17 Creatinine 0.26 L Estimated GFR Greater than 89 POC Glucose 124 H 117 H Random Glucose 389 H D Osmolality Calcium 7.0 L* Prot Corrected Calcium 8.3 L Total Protein 4.7 L 04/01/18 07:46 Sodium Potassium Chloride Carbon Dioxide Anion Gap BUN Creatinine Estimated GFR POC Glucose 85 Random Glucose Osmolality Calcium Prot Corrected Calcium Total Protein Imaging: ITS Impressions Head CT 03/12/18 06:59 CONCLUSION: 1. No acute intracranial abnormality. 2. Minimal fluid in the mastoid air cells. Abdomen X-Ray 03/21/18 00:00 CONCLUSION: Nasogastric or orogastric tube tip in distal stomach. Cervical Spine MRI 03/27/18 00:00 CONCLUSION: 1. Persistent well-defined area of fluid signal in the cord at the C5-C6 level. There is more ill-defined suspected edema within the cord at the C4-C7 levels. This appearance is unchanged when compared to the prior MRI examination. 2. Status post laminectomy at the C4-C7 levels with postsurgical hardware seen at the C4-T1 levels. 3. Prominence of the posterior epidural space at the C4-C6 levels with a possible dural defect posteriorly seen at the C5-C6 level. This appearance is unchanged. A small amount of fluid is seen to extend posterior to the suspected dural defect. 4. Persistent prevertebral soft tissue swelling. Head MRI 03/27/18 00:00 CONCLUSION: 1. 2 small persistent enhancing lesions without significant mass effect or surrounding edema seen in the left occipital and left parietal lobe. These are unchanged. Multiple lesions raises the possibility of metastatic disease versus infection or underlying vascular malformations such as cavernous angiomas. Significant mass effect or edema is not seen. 2. Scattered focal areas of demyelination the cerebral white matter. Chest X-Ray 03/30/18 06:00 CONCLUSION: 1. Persistent left basilar consolidation with probable associated effusion. 2. There appears to be some improving aeration in the right hemithorax 3. Stable position of life-support tubes Physical Exam: GENERAL: No acute distress. Awake, on CPAP HEENT: Pupils reactive to light. No icterus. NECK: Supple. No swelling. Trach site ok LUNGS: Decreased breath sounds. No rhonchi. HEART: Regular S1 and S2. No murmurs, rubs or gallops. ABDOMEN: Soft, nontender. Normoactive bowel sounds. EXTREMITIES: No clubbing or cyanosis. No edema. SKIN: No rash. NEUROLOGIC: left hemiparesis. Decreased strength. PSYCH: Calm Lines: PICC line without evidence of infection. Assessment and Plan - Plan IMPRESSION: New fever. Sputum culture has Stenotrophomonas. Bronchoscopy culture has Stenotrophomonas resistant to Levaquin. Pneumonia due to Stenotrophomonas. ESBL E. coli bacteremia. Treated and resolved.. ESBL E. coli UTI. Treated and resolved. Acute respiratory failure. Post tracheostomy. Status post cervical spine surgery. Brain lesions on MRI. 3 enhancing nodular lesions seen in the left parietal area. Recent subarachnoid hemorrhage. Left hemiparesis. Recommendations: Continue Bactrim IV for Stenotrophomonas PNA. Plan on 7 - 10 days. Monitor clinical status. Monitor temperature. Weaning per [facility]
[2018-04-01] MEDS: Collagenase Oint 30 GM Tube TOPICAL SCH (15:26)
[2018-04-01 16:21] LABS: Hemoglobin 9.2 gm/dL (11.6-15.3)
[2018-04-01 16:46] LABS: Free T4 (Free Thyroxine) 1.43 ng/dL (0.76-1.46); Thyroid Stimulating Hormone 5.53 uIU/mL (0.358-3.740)
[2018-04-02] MEDS: Oral Hygiene Kit OROPHARYNG SCH ×4 (01:52→15:29)
[2018-04-02] MEDS: Metoprolol Tartrate 25 MG Tablet PO SCH ×4 (01:58→21:11)
[2018-04-02] MEDS: DEXTROSE 5% IV.SIG SCH ×4 (03:03→15:29)
[2018-04-02] MEDS: WATER IV.SIG SCH ×4 (03:03→15:29)
[2018-04-02] MEDS: SULFAMETHOX IV.SIG SCH ×4 (03:03→15:29)
[2018-04-02] MEDS: TRIMETHOPRIM IV.SIG SCH ×4 (03:03→15:29)
[2018-04-02] MEDS: Hypromellose 0.3% Opth Gel 10 GM Bottle EACH EYE SCH ×3 (03:03→21:11)
[2018-04-02 04:01] LABS: Hematocrit 26.7 % (35.0-46.0); Mean Corpuscular HGB Conc 33.9 % (32.0-36.0); Mean Corpuscular Hemoglobin 30.3 pg (27.0-34.0); Mean Corpuscular Volume 89.5 fL (80.0-100.0); Mean Platelet Volume 8.7 fL (7.0-11.0); Platelet Count 211 th/mm3 (150-450); Red Blood Count 2.98 mil/mm3 (4.00-5.30); Red Cell Distribution Width 16.2 % (11.6-17.2)
[2018-04-02 04:29] LABS: Anion Gap 6 meq/L (5-15); Blood Urea Nitrogen 18 mg/dL (7-18); Calcium 7.8 mg/dL (8.5-10.1); Carbon Dioxide 24.6 meq/L (21.0-32.0); Chloride 105 meq/L (98-107); Glomerular Filtration Rate Greater Than 89 mL/min (>89); Glucose,Random 113 mg/dL (74-106); Sodium 136 meq/L (136-145)
[2018-04-02] MEDS: Sodium Chloride 1 GM Tablet PO SCH ×3 (05:56→21:11)
[2018-04-02] MEDS: Levothyroxine 50 MCG Tablet PO SCH (05:56)
--- NOTE | 2018-04-02 07:49 | P.PNID ---
Subjective Remarks: ID COVERAGE Notes reviewed Patient is comfortable on the vent Afebrile BP ok WBC normal Last CXR 03/30 stable L base consolidation, R better Sputum culture had Stenotrophomonas from 03/11/2018, 03/27/18. post tracheostomy and PEG tube insertion 03/24/2018. Antibiotics: Bactrim. Lines: Right upper extremity PICC line. Past Medical History: Diabetes mellitus, hypertension, hypothyroidism, systemic lupus erythematosus, rheumatoid arthritis, anemia, recent subarachnoid hemorrhage, C6 mass resection, hysterectomy, bladder sling, appendectomy, C4-C7 laminectomy, C4-T1 posterior fusion. Allergies/Adverse Reactions: Allergies codeine Allergy (Intermediate, Verified 01/24/18 17:12) nitroglycerin Adverse Reaction (Severe, Verified 01/25/18 09:14) Nausea/Vomiting Objective Vital Signs 04/01/18 08:00 04/01/18 08:17 04/01/18 09:20 Temperature 98.2 F 98.2 F Pulse Rate 91 H 92 H 95 H Respiratory Rate 16 23 26 H Blood Pressure 93/58 L 95/60 L Pulse Oximetry 100 100 100 04/01/18 09:35 04/01/18 10:00 04/01/18 11:44 Temperature 98.1 F Pulse Rate 96 H 97 H Respiratory Rate 25 H 26 H Blood Pressure 98/55 L Pulse Oximetry 100 100 04/01/18 11:46 04/01/18 12:00 04/01/18 14:00 Temperature 98.2 F Pulse Rate 99 H 100 H 113 H Respiratory Rate 26 H 20 Blood Pressure 107/70 Pulse Oximetry 100 04/01/18 16:00 04/01/18 16:45 04/01/18 16:47 Temperature 99.0 F Pulse Rate 104 H 105 H Respiratory Rate 25 H 31 H 30 H Blood Pressure 135/74 Pulse Oximetry 100 100 04/01/18 18:00 04/01/18 19:59 04/01/18 20:00 Temperature 98.5 F Pulse Rate 105 H 106 H 106 H Respiratory Rate 26 H 27 H Blood Pressure 136/72 Pulse Oximetry 100 100 04/01/18 22:00 04/02/18 00:00 04/02/18 00:49 Temperature 98.2 F Pulse Rate 104 H 112 H 116 H Respiratory Rate 26 H 26 H Blood Pressure 147/86 H Pulse Oximetry 100 100 04/02/18 01:52 04/02/18 02:00 04/02/18 04:00 Temperature 98.4 F Pulse Rate 116 H 109 H Respiratory Rate 18 29 H Blood Pressure 125/84 Pulse Oximetry 100 04/02/18 04:59 04/02/18 06:00 Temperature Pulse Rate 113 H 115 H Respiratory Rate 25 H Blood Pressure Pulse Oximetry 100 Intake & Output 04/01/18 04/02/18 04/02/18 18:59 06:59 18:59 Intake Total 2143 / 2143 360 / 360 Output Total 3200 / 3200 2925 / 2925 Balance -1057 / -1057 -2565 / -2565 Weight 61.8 kg Intake: IV 1023 / 1023 Bactrim Inj 368 MG In D5W Inj 1023 / 1023 500 ML @ 348.667 mls/hr IV.SIG Q12H KARINA Rx#:[id number] Tube Feeding 720 / 720 360 / 360 Intake (Blood Product) Amt 400 / 400 Rbc As-3 Leukoreduced Unit 400 / 400 [id number] Output: Urine 325 / 325 Urine Amount (Catheter) 3200 / 3200 2600 / 2600 Straight 3200 / 3200 2600 / 2600 Other: Date of Last Bowel Movement 03/31/18 04/01/18 # Bowel Movements 4 3 03/27/18 14:25 Blood - Line Aerobic Blood Culture - Final No growth in 5 days 03/27/18 14:25 Blood - Line Anaerobic Blood Culture - Final No growth in 5 days 03/27/18 15:01 Blood - Line Aerobic Blood Culture - Final No growth in 5 days 03/27/18 15:01 Blood - Line Anaerobic Blood Culture - Final No growth in 5 days 03/24/18 14:15 Bronchial Washings - Right Lower Lobe Fungal Smear - Final No fungal elements seen 03/24/18 14:15 Bronchial Washings - Right Lower Lobe Fungal Culture - Preliminary No growth in 1 week 03/24/18 14:15 Bronchial Washings - Right Lower Lobe Acid Fast Bacilli Smear - Final No acid fast bacilli seen 03/24/18 14:15 Bronchial Washings - Right Lower Lobe Mycobacterial Culture - Preliminary No growth in 1 week Lab - Hematology Results 03/31/18 04/01/18 04/01/18 07:35 04:11 15:35 WBC 5.7 4.6 RBC 2.31 L 2.04 L Hgb 7.2 L 6.2 L* 9.2 L D Hct 20.8 L* 18.7 L* 27.0 L MCV 90.2 91.7 MCH 31.1 30.7 MCHC 34.4 33.5 RDW 16.7 17.2 Plt Count 185 181 MPV 8.3 8.6 04/02/18 03:25 WBC 8.0 D RBC 2.98 L Hgb 9.0 L Hct 26.7 L MCV 89.5 MCH 30.3 MCHC 33.9 RDW 16.2 Plt Count 211 MPV 8.7 Lab - Chemistry Results 03/31/18 03/31/18 03/31/18 07:35 07:35 11:45 Sodium 138 Potassium 3.9 Chloride 105 Carbon Dioxide 26.3 Anion Gap 7 BUN 15 Creatinine 0.16 L Estimated GFR Greater than 89 POC Glucose 124 H Random Glucose 89 Osmolality 282 Calcium 7.3 L* Prot Corrected Calcium 8.3 L Total Protein 5.2 L TSH Free T4 03/31/18 04/01/18 04/01/18 20:03 04:11 07:46 Sodium 129 L Potassium 3.6 Chloride 97 L D Carbon Dioxide 23.7 Anion Gap 8 BUN 17 Creatinine 0.26 L Estimated GFR Greater than 89 POC Glucose 117 H 85 Random Glucose 389 H D Osmolality Calcium 7.0 L* Prot Corrected Calcium 8.3 L Total Protein 4.7 L TSH Free T4 04/01/18 04/01/18 04/02/18 15:35 19:40 03:25 Sodium 139 D 136 Potassium 4.0 Chloride 105 D Carbon Dioxide 24.6 Anion Gap 6 BUN 18 Creatinine 0.23 L Estimated GFR Greater than 89 POC Glucose 106 Random Glucose 113 H D Osmolality Calcium 7.8 L D Prot Corrected Calcium Total Protein TSH 5.530 H Free T4 1.43 Imaging: ITS Impressions Head CT 03/12/18 06:59 CONCLUSION: 1. No acute intracranial abnormality. 2. Minimal fluid in the mastoid air cells. Abdomen X-Ray 03/21/18 00:00 CONCLUSION: Nasogastric or orogastric tube tip in distal stomach. Cervical Spine MRI 03/27/18 00:00 CONCLUSION: 1. Persistent well-defined area of fluid signal in the cord at the C5-C6 level. There is more ill-defined suspected edema within the cord at the C4-C7 levels. This appearance is unchanged when compared to the prior MRI examination. 2. Status post laminectomy at the C4-C7 levels with postsurgical hardware seen at the C4-T1 levels. 3. Prominence of the posterior epidural space at the C4-C6 levels with a possible dural defect posteriorly seen at the C5-C6 level. This appearance is unchanged. A small amount of fluid is seen to extend posterior to the suspected dural defect. 4. Persistent prevertebral soft tissue swelling. Head MRI 03/27/18 00:00 CONCLUSION: 1. 2 small persistent enhancing lesions without significant mass effect or surrounding edema seen in the left occipital and left parietal lobe. These are unchanged. Multiple lesions raises the possibility of metastatic disease versus infection or underlying vascular malformations such as cavernous angiomas. Significant mass effect or edema is not seen. 2. Scattered focal areas of demyelination the cerebral white matter. Chest X-Ray 03/30/18 06:00 CONCLUSION: 1. Persistent left basilar consolidation with probable associated effusion. 2. There appears to be some improving aeration in the right hemithorax 3. Stable position of life-support tubes Physical Exam: GENERAL: No acute distress. Comfortable on the vent HEENT: Pupils reactive to light. No icterus. NECK: Trach site ok LUNGS: Decreased breath sounds. No rhonchi. HEART: Regular S1 and S2. No murmurs, rubs or gallops. ABDOMEN: Soft, nontender. Normoactive bowel sounds. EXTREMITIES: No clubbing or cyanosis. No edema. SKIN: No rash. NEUROLOGIC: Resting PSYCH: Calm Lines: PICC line without evidence of infection. Assessment and Plan - Plan IMPRESSION: New fever. Sputum culture has Stenotrophomonas. - temps better Bronchoscopy culture has Stenotrophomonas resistant to Levaquin. Pneumonia due to Stenotrophomonas. ESBL E. coli bacteremia. Treated and resolved.. ESBL E. coli UTI. Treated and resolved. Acute respiratory failure. Post tracheostomy. Status post cervical spine surgery. Brain lesions on MRI. 3 enhancing nodular lesions seen in the left parietal area. Recent subarachnoid hemorrhage. Left hemiparesis. Recommendations: Continue Bactrim IV for Stenotrophomonas PNA. Plan on 7 - 10 days. Monitor clinical status. Monitor temperature. Weaning per [facility] Seems clinically stable from ID standpoint
--- NOTE | 2018-04-02 09:16 | P.PNCC ---
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 she was sent to [facility] for procedural management of these. She was then transferred to [place] rehab on 02/28. Please see the dictated hospitalist consult note on 02/28 on admission to [place] for a detailed record of the hospital course while at [facility]. Today, she was found to be very tachycardic in the 160s and hypotensive with sbp in the 70s. She was emergently transferred to the ICU after rapid response was called for evaluation and management of her hypotension. Of note, she did not have iv access. I met her on arrival to the ICU. I placed 2 18g piv. 12-lead EKG confirms sinus tachycardia. I due to the fast rate, I gave 6mg adenosine to slow it down diagnostically, and it slowed down temporarily to a HR in the 70s, confirming sinus rhythm. I performed bedside critical care echocardiography which demonstrates grossly preserve biventricular function. in particular, RV is decompressed and well-functioning. IVC is completely collapsable. no pericardial effusion. I gave her 3L NS bolus ivf which improved her SBP to 110s and decreased her HR to 110s. She is afebrile. stat CBC shows anemia (history of recent femoral artery pseudoaneurysm), CMP demonstrates elevated AST and Alk phos, elevated lactate at 3.7. Cr elevated above baseline. Patient denies any complaints to me. she is mostly malaysian speaking, but communicates in basic Croatian. specifically denies chest pain, shortness of breath, fever/chills, nausea, vomiting, abdominal pain, constipation, diarrhea. I discussed with her family, she has been eating and drinking well even up to today. ROS otherwise negative. 03/02 Patient is awake lying in bed in TRAV. On room air oxygen. T:103.2 this morning She was hypotensive overnight initially placed on Neosyn now off pressor with BP 147/67 with MAP 96. 03/03 No events overnight. Seems more awake and alert this morning. T: 100.2 at midnight. BP and HR better ( 119/58 with MAP 83mmHg). On no pressors. BC from 03/01: E.coli ESBL 6/30: clinically improving. slightly tachycardic. on appropriate therapy for her ESBL e. coli. denies complaints. hemodynamically stable. on room air. 03/05: Patient developed worsening respiratory distress yesterday and required endotracheal intubation and was placed on mechanical ventilation. Hypotension overnight for which patient was started on phenylephrine. Developed A. fib with RVR and was started on amiodarone gtt. 03/06 Patient remains sedated and intubated. Tmax 101.6, On Amio drip. 03/07 Patient remains intubated off sedation. s/p transfusion 2u PRBC yesterday. Tolerating tube feeds. Afebrile. Off Amio drip. 03/08 Patient remains intubated. T:100.9 last night. 03/09 No events overnight. Tolerated CPAP for approx 4 hrs yesterday. Off sedation. Afebrile. 03/10 No events overnight T:100.1 at 4am, Awake, patient was on CPAP for short time yesterday and placed back on PRVC mode for low TV and tachycardia. 03/11 No events overnight. Tolerated CPAP x 4hrs yesterday. T:100.6 yesterday. On no sedation. 03/12 Patient was extubated yesterday reintubated last night for resp distress and AMS. Afebrile. On Diprivan infusion for sedation. 03/13: Remains intubated critical, remains encephalopathy unresponsive off sedation. Afebrile EEG showed significant encephalopathy no seizures. Right subclavian central line placed, remains on Luis-Synephrine to keep map above 65 03/14: Remains encephalopathy again unresponsive. Eyes are open but no tracking did not follow commands. Remains leukopenic. Weaned off Luis-Synephrine. Not tolerating CPAP due to low tidal volume 03/15: Continues to fail CPAP due to low tidal volume. IV Levaquin added yesterday by ID for stenotrophomonas in the sputum. Remains encephalopathic did not follow commands but eyes are spontaneously open. I have requested neurology consult today 03/16: T-max 100.1. Currently 99. EEG has been performed. Does not follow commands. Tube feeds at 30 cc an hour. Positive BM. 03/17 Patient remains intubated on Precedex drip but awake. 03/18 T-current 100.7. Tolerating tube feeds at goal. Arousable the ventilator and follows command. Left side is chronically weaker. Discussed with Dr. Gutierrez /neurology. Reviewed MRI brain. Recommended evaluation by neurosurgery for abnormal MRI C-spine. Patient's CT surgeon at [facility] is Dr. Ku 03/19: T-max 100.7. Currently 99. Tachycardic. Tolerated CPAP trial. On the ventilator currently. Positive BM yesterday. 03/20 Patient was on Diprivan and Precedex drip overnight now off sedation. Afebrile. 03/21: no improvements. has been intubated for 17 days, and failed extubation quickly 03/12. needs trach and peg for further progress. 03/22: Afebrile. Intubation day #18. Patient currently contemplating trach and PEG options. Currently off dexmedetomidine drip. 03/23: Afebrile. Plan for PEG tube today. Awake and alert and interactive on the ventilator. Tube feeds are currently off. 03/24: Afebrile. Status post PEG tube by Dr. Orellana 03/23. Plan for percutaneous tracheostomy Dr. Serrano at 10 AM today 03/24. Tachycardic. Will replace phosphorus and magnesium this a.m. 03/25: Status post tracheostomy 03/[address] Serrano. Currently on PSV trial. No new issues overnight. Tube feeds at goal. 03/26: Low-grade temperatures overnight. Tube feeds have been restarted. Will start on CPAP trials today. 03/27: T-max 102.2. Blood cultures have been drawn today. Tube feeds of been resumed. Has been new concern about new altered mental status. Opens eyes but not following commands. MRI brain/C-spine ordered tonight 03/28: Afebrile today. MRI brain revealed 3 left parietal lesion/stable. MRI C- spine without significant change. Opens mouth to command for temperature today. Slight movement of bilateral upper extremities. 03/29: T-max 99.8. Currently afebrile. Slightly more interactive today. Tolerating tube feeds. Positive BM. 03/30: no changes. diarrhea which may be associated with continuous tube feeds: will transition to bolus tube feeds and add fiber to diet. 03/31: uop continues to be very high: straight caths with >1000mL q4h. will send urine SG and osms. sodium has remained stable for days- unlikely to be DI. could possibly be autodiuresis from chronic volume overload over the past hospitalization. otherwise, no other changes. 04/01: serum sodium dropped precipitously to 129 from 138 yesterday. urine output continues to be > 5L/day. urine studies and change in serum sodium are not consistent with DI. serum and urine osmolality not consistent with SIADH. could be cerebral salt wasting, but no clear reason for this either. clinically appears quite euvolemic, not dehydrated or volume overloaded. no peripheral edema anywhere. will be forced to increase sodium administration in the form of saline and ivf. Also, hgb dropped < 7 today. no signs of melena. no other evidence of bleeding. will send haptoglobin and LDH. Subjective 04/02: serum sodium improved with interventions. unclear if this was lab error or true, though today back to 136. TSH elevated, but free t4 appropriate (sick euthyroid syndrome). patient denies complaints. Objective Vital Signs / I&O: Vital Signs 04/01/18 09:20 04/01/18 09:35 04/01/18 10:00 Temperature 36.8 C 36.7 C Pulse Rate 95 H 96 H 97 H Respiratory Rate 26 H 25 H Blood Pressure 95/60 L 98/55 L Pulse Oximetry 100 100 04/01/18 11:44 04/01/18 11:46 04/01/18 12:00 Temperature 36.8 C Pulse Rate 99 H 100 H Respiratory Rate 26 H 26 H 20 Blood Pressure 107/70 Pulse Oximetry 100 100 04/01/18 14:00 04/01/18 16:00 04/01/18 16:45 Temperature 37.2 C Pulse Rate 113 H 104 H Respiratory Rate 25 H 31 H Blood Pressure 135/74 Pulse Oximetry 100 100 04/01/18 16:47 04/01/18 18:00 04/01/18 19:59 Temperature Pulse Rate 105 H 105 H 106 H Respiratory Rate 30 H 26 H Blood Pressure Pulse Oximetry 100 04/01/18 20:00 04/01/18 22:00 04/02/18 00:00 Temperature 36.9 C 36.8 C Pulse Rate 106 H 104 H 112 H Respiratory Rate 27 H 26 H Blood Pressure 136/72 147/86 H Pulse Oximetry 100 100 04/02/18 00:49 04/02/18 01:52 04/02/18 02:00 Temperature Pulse Rate 116 H 116 H Respiratory Rate 26 H 18 Blood Pressure Pulse Oximetry 100 04/02/18 04:00 04/02/18 04:59 04/02/18 06:00 Temperature 36.9 C Pulse Rate 109 H 113 H 115 H Respiratory Rate 29 H 25 H Blood Pressure 125/84 Pulse Oximetry 100 100 04/02/18 08:58 Temperature Pulse Rate 114 H Respiratory Rate 26 H Blood Pressure Pulse Oximetry Intake & Output 04/01/18 04/02/18 04/02/18 18:59 06:59 18:59 Intake Total 2143 / 2143 360 / 360 Output Total 3200 / 3200 2925 / 2925 Balance -1057 / -1057 -2565 / -2565 Weight 61.8 kg Intake: IV 1023 / 1023 Bactrim Inj 368 MG In D5W Inj 1023 / 1023 500 ML @ 348.667 mls/hr IV.SIG Q12H KARINA Rx#:[id number] Tube Feeding 720 / 720 360 / 360 Intake (Blood Product) Amt 400 / 400 Rbc As-3 Leukoreduced Unit 400 / 400 [id number] Output: Urine 325 / 325 Urine Amount (Catheter) 3200 / 3200 2600 / 2600 Straight 3200 / 3200 2600 / 2600 Other: Date of Last Bowel Movement 03/31/18 04/01/18 # Bowel Movements 4 3 Result Diagrams: 04/02/18 03:25 04/02/18 03:25 Objective Remarks: GENERAL: Patient is 62 yo female patient currently on t-piece via tracheostomy resting in bed in no acute distress SKIN: Warm and dry. No rash. Sacral DTI HEAD: Normocephalic. EYES: No scleral icterus. No injection or drainage. NECK: Supple, trachea midline. No JVD. #8 Shiley percutaneous tracheostomy site is clean dry and intact. CARDIOVASCULAR: Tachycardic, RR. RESPIRATORY: Breath sounds equal bilaterally. No accessory muscle use. Diminished in the bases bilaterally. GASTROINTESTINAL: Abdomen soft, non-tender, nondistended. PEG tube site is clean dry and intact. MUSCULOSKELETAL: no edema today of the LEs. NEURO: Arousable and follows commands with bilateral upper extremities. She is not answering questions today.. She is Egyptian-speaking and can understand some Croatian phrases. Assessment and Plan - Assessment and Plan Plan: Neuro/Psych: History of C6 vertebral aneurysm and underwent a C4 through T1 posterior fusion resection of the C6 mass which was negative for malignancy with 90% of mass removed, just showing inflammation, and a C4 through 7 laminectomy on 02/03/2018. Severe metabolic encephalopathy- resolving Recent aneurysmal subarachnoid hemorrhage treated at [facility] in January 2018 History of left occipital subarachnoid hemorrhage February 15, 2018 Cord edema possible hemorrhage within the cord level C7 through T1 Repeat CT brain showed no acute abnormalities. EEG significant encephalopathy Seen by Dr. Newberry from [facility]- No further neurosurgical intervention anticipated at this point. MRI brain: previously noted subarachnoid hemorrhage overlying the occipital lobes has resolved. Tiny trace of residual hemorrhage in the posterior lateral ventricles. Stable chronic white matter changes. No new or acute intracranial process. Neurology consult requested Dr. Arellano/follow-up has followed EEG: Mod. encephalopathy MRI brain 03/16 : There is a new area of nodular enhancement, abnormal FLAIR signal, and mild restricted diffusion at the baeza matter white matter junction in the left occipital lobe. 3 additional small areas of nodular enhancement measuring approximately 3 mm are also identified along the baeza matter surface in the left parietal high convexity. Etiology is nonspecific. MRI cervical spine 03/16: Persistent abnormal signal in the cord extending from C4 down to T1. Much of this likely related to edema. The edema appears to extend over a smaller area on the current exam. There is a linear area of increased signal seen on the T1 and T2-weighted images at the left-sided cord at the C7-T1 level which may represent an area of focal hemorrhage within the cord. Status post laminectomy with posterior fusion and hardware placed at the C4-T1 levels. Prevertebral soft tissue swelling. No focal fluid collection to suggest an abscess. Currently on gabapentin 600 mg 3 times daily/home medication on hold for neuropathy pain Currently on cyclobenzaprine 5 mg every 8 hours. Hold secondary to AMS Schedule oxycodone 2.5 mg by tube every 6 hours as needed breakthrough pain Acetaminophen 650 every 6 hours as needed fever/pain 1 through 5 Tramadol 50 mg every 8 hours as needed pain 6 through 10 C-collar has been removed/okayed by neurosurgery Her neurosurgeon is Dr. Ku [phone] MRI brain 03/27 - small persistent enhancing lesions without significant mass effect or surrounding edema seen in the left occipital and left parietal lobe. These are unchanged. Multiple lesions raises the possibility of metastatic disease versus infection or underlying vascular malformations such as cavernous angiomas. Significant mass effect or edema is not seen. Scattered focal areas of demyelination the cerebral white mattercervical spine 03/27 revealed MRI c spine - 03/27. Persistent well-defined area of fluid signal in the cord at the C5-C6 level. There is more ill-defined suspected edema within the cord at the C4-C7 levels. This appearance is unchanged when compared to the prior MRI examination. Status post laminectomy at the C4-C7 levels with postsurgical hardware seen at the C4-T1 levels. Prominence of the posterior epidural space at the C4-C6 levels with a possible dural defect posteriorly seen at the C5-C6 level. This appearance is unchanged. A small amount of fluid is seen to extend posterior to the suspected dural defect. Persistent prevertebral soft tissue swelling Pulm: Acute hypoxemic respiratory failure-status post percutaneous tracheostomy tube placement by Dr. Serrano 03/24 HCAP Extubated and reintubated on 03/11, failing CPAP trials due to low tidal volumes. Ventilator bundle Albuterol/ipratropium aerosols every 4 hours with albuterol aerosols every 2 hours. Dyspnea Daily CPAP trial CT pulmonary angiogram chest: No PE, minimal consolidative changes left base CV: A. fib/sinus tachycardia Septic shock- resolved. Hyperlipidemia Place on Lopressor 25mg Q6h Monitor HR and BP keep MAP>65mmHg. Pravachol 20mg daily for dyslipidemia - Elevated troponin, type II demand ischemia NSTEMI - Echo 03/06 EF 50-55% - Will not anticoagulate at this time given risk/benefit with recent head bleed Cortisol level: 41 Cards has followed Renal/FEN/: Urinary retention Severe hyponatremia- resolving. Monitor renal function, electrolytes replacement per protocol. Continue oxybutynin 5 mg every 8 hours continue straight cath q4h urine SG, osms, serum osms: not c/w DI. not c/w SIADH. patient does have recent history of SAH on 02/15, but we are > 21 days out from this, so unlikely to be cause of cerebral salt wasting. continue start NaCl tabs 1gm po q8h continues to appear euvolemic trend daily sodiums. GI: Status post PEG tube 03/[address] Sutton Monitor LFT's, CT abd/pelvis without evidence of overt acute cholecystitis Tube feeds- Glucerna 1.5 with goal rate 50ml/hr have been resumed Lansoprazole for GI prophylaxis Docusate sodium/senna 1 tablet twice daily for bowel regimen ID: Urinary tract infection ESBL E. coli bacteremia Pneumonia with Stenotrophomonas s/p Septic shock ID is following (/trimethoprim/sulfamethoxazole, vancomycin) levofloxacin discontinued 03/28 03/24 -bronchoscopy -Stenotrophomonas 03/16 -blood cultures 2 -negative 03/11, 03/15 sputum Stenotrophomonas 03/07: Sputum cx: NG 03/08, 03/09 BC: NGTD 03/06 BC Coag negative staph 03/05 BC: E.coli bacteremia 03/01 BC: E.coli ESBL 03/01 Urine cx: GNR Heme: Normocytic anemia -Monitor CBC, s/p 2u PRBC 03/06 Heme is following- Dr. Miller Hep PLT ab negative FEN TIBC both low Transfuse one PRBC 03/18 MSKRheum Sacral deep tissue injury SLE positive History of RF - present on admission - does not appear grossly infected - likely not the source of infection - management per wound care nurse Endo: SSI if needed for glycemic control On levothyroxine 50mcg daily. TSH: 0.47 GI prophylaxis- On lansoprazole 30 mg daily DVT prophylaxis- SCD, hold Heparin Sq due to recent [employer] bleed in January ( MRI brain 01/29) along with likely current blood at site of C-spine surgery 02/20 Lines: Right subclavian CVL. Discontinued 03/23 PICC right upper extremity placed 03/23 OVERALL IMPRESSION: clinically deconditioned. needs aggressive PT. LTAC would be appropriate.
[2018-04-02] MEDS: Insulin NovoLIN Regular Correctional Sugar Inj SQ SCH ×2 (09:28→21:12)
[2018-04-02] MEDS: Chlorhexidine 0.12% Oral Kit 15 ML UDC OROPHARYNG SCH ×2 (09:29→21:12)
[2018-04-02] MEDS: Gabapentin 300 MG Capsule PO SCH ×3 (09:29→18:21)
[2018-04-02] MEDS: Heparin Central Flush 100 UNIT/ML 5 ML Vial IV.FLUSH SCH (09:30)
[2018-04-02] MEDS: Collagenase Oint 30 GM Tube TOPICAL SCH (15:29)
[2018-04-03] MEDS: Metoprolol Tartrate 25 MG Tablet PO SCH ×4 (03:18→20:30)
[2018-04-03] MEDS: Oral Hygiene Kit OROPHARYNG SCH ×3 (03:19→16:11)
[2018-04-03] MEDS: DEXTROSE 5% IV.SIG SCH ×4 (03:21→15:00)
[2018-04-03] MEDS: TRIMETHOPRIM IV.SIG SCH ×4 (03:21→15:00)
[2018-04-03] MEDS: WATER IV.SIG SCH ×4 (03:21→15:00)
[2018-04-03] MEDS: SULFAMETHOX IV.SIG SCH ×4 (03:21→15:00)
[2018-04-03] MEDS: Hypromellose 0.3% Opth Gel 10 GM Bottle EACH EYE SCH ×3 (03:22→18:51)
[2018-04-03] MEDS: Sodium Chloride 1 GM Tablet PO SCH ×3 (05:53→16:45)
[2018-04-03] MEDS: Levothyroxine 50 MCG Tablet PO SCH (05:53)
[2018-04-03 06:58] LABS: Hematocrit 27.2 % (35.0-46.0); Hemoglobin 9.2 gm/dL (11.6-15.3); Mean Corpuscular HGB Conc 33.8 % (32.0-36.0); Mean Corpuscular Volume 88.9 fL (80.0-100.0); Mean Platelet Volume 8.7 fL (7.0-11.0); Platelet Count 249 th/mm3 (150-450); Red Blood Count 3.06 mil/mm3 (4.00-5.30); Red Cell Distribution Width 15.7 % (11.6-17.2); White Blood Count 8.1 th/mm3 (4.0-11.0)
[2018-04-03 07:27] LABS: Anion Gap 7 meq/L (5-15); Blood Urea Nitrogen 16 mg/dL (7-18); Calcium 7.7 mg/dL (8.5-10.1); Carbon Dioxide 23.6 meq/L (21.0-32.0); Chloride 104 meq/L (98-107); Glomerular Filtration Rate Greater Than 89 mL/min (>89); Glucose,Random 102 mg/dL (74-106); Sodium 135 meq/L (136-145)
--- NOTE | 2018-04-03 08:02 | P.PNCC ---
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 she was sent to [facility] for procedural management of these. She was then transferred to [place] [facility] on 02/28. Please see the dictated hospitalist consult note on 02/28 on admission to [place] for a detailed record of the hospital course while at [facility]. Today, she was found to be very tachycardic in the 160s and hypotensive with sbp in the 70s. She was emergently transferred to the ICU after rapid response was called for evaluation and management of her hypotension. Of note, she did not have iv access. I met her on arrival to the ICU. I placed 2 18g piv. 12-lead EKG confirms sinus tachycardia. I due to the fast rate, I gave 6mg adenosine to slow it down diagnostically, and it slowed down temporarily to a HR in the 70s, confirming sinus rhythm. I performed bedside critical care echocardiography which demonstrates grossly preserve biventricular function. in particular, RV is decompressed and well-functioning. IVC is completely collapsable. no pericardial effusion. I gave her 3L NS bolus ivf which improved her SBP to 110s and decreased her HR to 110s. She is afebrile. stat CBC shows anemia (history of recent femoral artery pseudoaneurysm), CMP demonstrates elevated AST and Alk phos, elevated lactate at 3.7. Cr elevated above baseline. Patient denies any complaints to me. she is mostly canadian speaking, but communicates in basic Honduran. specifically denies chest pain, shortness of breath, fever/chills, nausea, vomiting, abdominal pain, constipation, diarrhea. I discussed with her family, she has been eating and drinking well even up to today. ROS otherwise negative. 03/02 Patient is awake lying in bed in TRAV. On room air oxygen. T:103.2 this morning She was hypotensive overnight initially placed on Neosyn now off pressor with BP 147/67 with MAP 96. 03/03 No events overnight. Seems more awake and alert this morning. T: 100.2 at midnight. BP and HR better ( 119/58 with MAP 83mmHg). On no pressors. BC from 03/01: E.coli ESBL 6/30: clinically improving. slightly tachycardic. on appropriate therapy for her ESBL e. coli. denies complaints. hemodynamically stable. on room air. 03/05: Patient developed worsening respiratory distress yesterday and required endotracheal intubation and was placed on mechanical ventilation. Hypotension overnight for which patient was started on phenylephrine. Developed A. fib with RVR and was started on amiodarone gtt. 03/06 Patient remains sedated and intubated. Tmax 101.6, On Amio drip. 03/07 Patient remains intubated off sedation. s/p transfusion 2u PRBC yesterday. Tolerating tube feeds. Afebrile. Off Amio drip. 03/08 Patient remains intubated. T:100.9 last night. 03/09 No events overnight. Tolerated CPAP for approx 4 hrs yesterday. Off sedation. Afebrile. 03/10 No events overnight T:100.1 at 4am, Awake, patient was on CPAP for short time yesterday and placed back on PRVC mode for low TV and tachycardia. 03/11 No events overnight. Tolerated CPAP x 4hrs yesterday. T:100.6 yesterday. On no sedation. 03/12 Patient was extubated yesterday reintubated last night for resp distress and AMS. Afebrile. On Diprivan infusion for sedation. 03/13: Remains intubated critical, remains encephalopathy unresponsive off sedation. Afebrile EEG showed significant encephalopathy no seizures. Right subclavian central line placed, remains on Luis-Synephrine to keep map above 65 03/14: Remains encephalopathy again unresponsive. Eyes are open but no tracking did not follow commands. Remains leukopenic. Weaned off Luis-Synephrine. Not tolerating CPAP due to low tidal volume 03/15: Continues to fail CPAP due to low tidal volume. IV Levaquin added yesterday by ID for stenotrophomonas in the sputum. Remains encephalopathic did not follow commands but eyes are spontaneously open. I have requested neurology consult today 03/16: T-max 100.1. Currently 99. EEG has been performed. Does not follow commands. Tube feeds at 30 cc an hour. Positive BM. 03/17 Patient remains intubated on Precedex drip but awake. 03/18 T-current 100.7. Tolerating tube feeds at goal. Arousable the ventilator and follows command. Left side is chronically weaker. Discussed with Dr. Gutierrez /neurology. Reviewed MRI brain. Recommended evaluation by neurosurgery for abnormal MRI C-spine. Patient's CT surgeon at [facility] is Dr. Ku [phone] 03/19: T-max 100.7. Currently 99. Tachycardic. Tolerated CPAP trial. On the ventilator currently. Positive BM yesterday. 03/20 Patient was on Diprivan and Precedex drip overnight now off sedation. Afebrile. 03/21: no improvements. has been intubated for 17 days, and failed extubation quickly 03/12. needs trach and peg for further progress. 03/22: Afebrile. Intubation day #18. Patient currently contemplating trach and PEG options. Currently off dexmedetomidine drip. 03/23: Afebrile. Plan for PEG tube today. Awake and alert and interactive on the ventilator. Tube feeds are currently off. 03/24: Afebrile. Status post PEG tube by Dr. Orellana 03/23. Plan for percutaneous tracheostomy Dr. Serrano at 10 AM today 03/24. Tachycardic. Will replace phosphorus and magnesium this a.m. 03/25: Status post tracheostomy 03/[address] Serrano. Currently on PSV trial. No new issues overnight. Tube feeds at goal. 03/26: Low-grade temperatures overnight. Tube feeds have been restarted. Will start on CPAP trials today. 03/27: T-max 102.2. Blood cultures have been drawn today. Tube feeds of been resumed. Has been new concern about new altered mental status. Opens eyes but not following commands. MRI brain/C-spine ordered tonight 03/28: Afebrile today. MRI brain revealed 3 left parietal lesion/stable. MRI C- spine without significant change. Opens mouth to command for temperature today. Slight movement of bilateral upper extremities. 03/29: T-max 99.8. Currently afebrile. Slightly more interactive today. Tolerating tube feeds. Positive BM. 03/30: no changes. diarrhea which may be associated with continuous tube feeds: will transition to bolus tube feeds and add fiber to diet. 03/31: uop continues to be very high: straight caths with >1000mL q4h. will send urine SG and osms. sodium has remained stable for days- unlikely to be DI. could possibly be autodiuresis from chronic volume overload over the past hospitalization. otherwise, no other changes. 04/01: serum sodium dropped precipitously to 129 from 138 yesterday. urine output continues to be > 5L/day. urine studies and change in serum sodium are not consistent with DI. serum and urine osmolality not consistent with SIADH. could be cerebral salt wasting, but no clear reason for this either. clinically appears quite euvolemic, not dehydrated or volume overloaded. no peripheral edema anywhere. will be forced to increase sodium administration in the form of saline and ivf. Also, hgb dropped < 7 today. no signs of melena. no other evidence of bleeding. will send haptoglobin and LDH. Subjective 04/02: serum sodium improved with interventions. unclear if this was lab error or true, though today back to 136. TSH elevated, but free t4 appropriate (sick euthyroid syndrome). patient denies complaints. 04/03: sodium slowly downtrending. continues with vigorous diuresis. iv bactrim may be a cause of hyponatremia, but requires this for her Stenotrophomonas. no other concerns. rested on vent overnight. Objective Vital Signs / I&O: Vital Signs 04/02/18 08:00 04/02/18 08:58 04/02/18 09:00 Temperature 37.2 C Pulse Rate 110 H 114 H 115 H Respiratory Rate 22 26 H 33 H Blood Pressure 117/71 119/82 Pulse Oximetry 100 100 04/02/18 09:30 04/02/18 10:00 04/02/18 11:00 Temperature Pulse Rate 122 H 117 H Respiratory Rate 34 H 37 H Blood Pressure 130/72 129/79 Pulse Oximetry 99 99 100 04/02/18 11:59 04/02/18 12:00 04/02/18 13:00 Temperature 37.6 C Pulse Rate 115 H 114 H 123 H Respiratory Rate 28 H 38 H 34 H Blood Pressure 132/78 Pulse Oximetry 100 100 04/02/18 13:23 04/02/18 14:00 04/02/18 14:28 Temperature Pulse Rate 123 H 126 H Respiratory Rate 36 H 32 H 24 Blood Pressure 151/84 H 146/97 H Pulse Oximetry 100 97 100 04/02/18 15:00 04/02/18 16:00 04/02/18 16:15 Temperature 37.6 C Pulse Rate 129 H 118 H Respiratory Rate 32 H 31 H 24 Blood Pressure 138/84 139/77 Pulse Oximetry 100 89 L 100 04/02/18 17:00 04/02/18 17:01 04/02/18 18:00 Temperature Pulse Rate 113 H 113 H 120 H Respiratory Rate 34 H 31 H 34 H Blood Pressure 103/74 Pulse Oximetry 98 98 100 04/02/18 18:07 04/02/18 19:00 04/02/18 19:52 Temperature Pulse Rate 118 H 116 H 116 H Respiratory Rate 22 20 23 Blood Pressure 116/87 111/76 Pulse Oximetry 100 100 04/02/18 20:00 04/02/18 20:49 04/02/18 21:00 Temperature 37.3 C Pulse Rate 115 H 115 H Respiratory Rate 27 H 24 26 H Blood Pressure 106/73 108/71 Pulse Oximetry 100 100 100 04/02/18 22:00 04/02/18 23:00 04/03/18 00:00 Temperature Pulse Rate 112 H 111 H 109 H Respiratory Rate 28 H 29 H 30 H Blood Pressure 117/70 141/66 H Pulse Oximetry 100 100 100 04/03/18 00:01 04/03/18 01:00 04/03/18 01:01 Temperature Pulse Rate 110 H 110 H 112 H Respiratory Rate 33 H 39 H 20 Blood Pressure 133/60 111/66 Pulse Oximetry 100 100 100 04/03/18 01:11 04/03/18 02:00 04/03/18 02:01 Temperature Pulse Rate 111 H 113 H Respiratory Rate 26 H 30 H 22 Blood Pressure 111/62 Pulse Oximetry 100 100 100 04/03/18 03:00 04/03/18 03:03 04/03/18 04:00 Temperature 37.2 C Pulse Rate 115 H 116 H 108 H Respiratory Rate 25 H 26 H 20 Blood Pressure 105/75 113/69 Pulse Oximetry 100 100 100 04/03/18 05:00 04/03/18 05:21 04/03/18 06:00 Temperature Pulse Rate 103 H 106 H Respiratory Rate 13 24 23 Blood Pressure 106/61 Pulse Oximetry 100 100 100 04/03/18 06:01 Temperature Pulse Rate 107 H Respiratory Rate 35 H Blood Pressure 149/65 H Pulse Oximetry 99 Intake & Output 04/02/18 04/03/1818 18:59 06:59 18:59 Intake Total 720 / 720 943 / 943 Output Total 3300 / 3300 3200 / 3200 Balance -2580 / -2580 -2257 / -2257 Weight 59.6 kg Intake: IV 523 / 523 Bactrim Inj 368 MG In D5W Inj 523 / 523 500 ML @ 348.667 mls/hr IV.SIG Q12H KARINA Rx#:[id number] Tube Feeding 720 / 720 360 / 360 Water Bolus Amount 60 / 60 Output: Urine 500 / 500 200 / 200 Urine Amount (Catheter) 2800 / 2800 3000 / 3000 Straight 2800 / 2800 3000 / 3000 Other: Date of Last Bowel Movement 04/01/18 04/03/18 # Bowel Movements 3 3 Result Diagrams: 04/03/18 05:45 04/03/18 05:45 Objective Remarks: GENERAL: Patient is 62 yo female patient currently on t-piece via tracheostomy resting in bed in no acute distress SKIN: Warm and dry. No rash. Sacral DTI HEAD: Normocephalic. EYES: No scleral icterus. No injection or drainage. NECK: Supple, trachea midline. No JVD. #8 Shiley percutaneous tracheostomy site is clean dry and intact. CARDIOVASCULAR: Tachycardic, RR. RESPIRATORY: Breath sounds equal bilaterally. No accessory muscle use. Diminished in the bases bilaterally. GASTROINTESTINAL: Abdomen soft, non-tender, nondistended. PEG tube site is clean dry and intact. MUSCULOSKELETAL: no edema today of the LEs. NEURO: Arousable and follows commands with bilateral upper extremities. She is Senegalese-speaking and can understand some Honduran phrases. Assessment and Plan - Assessment and Plan Plan: Neuro/Psych: History of C6 vertebral aneurysm and underwent a C4 through T1 posterior fusion resection of the C6 mass which was negative for malignancy with 90% of mass removed, just showing inflammation, and a C4 through 7 laminectomy on 02/03/2018. Severe metabolic encephalopathy- resolving Recent aneurysmal subarachnoid hemorrhage treated at [facility] in January 2018 History of left occipital subarachnoid hemorrhage February 15, 2018 Cord edema possible hemorrhage within the cord level C7 through T1 Repeat CT brain showed no acute abnormalities. EEG significant encephalopathy Seen by Dr. Newberry from [facility]- No further neurosurgical intervention anticipated at this point. MRI brain: previously noted subarachnoid hemorrhage overlying the occipital lobes has resolved. Tiny trace of residual hemorrhage in the posterior lateral ventricles. Stable chronic white matter changes. No new or acute intracranial process. Neurology consult requested Dr. Arellano/follow-up has followed EEG: Mod. encephalopathy MRI brain 03/16 : There is a new area of nodular enhancement, abnormal FLAIR signal, and mild restricted diffusion at the baeza matter white matter junction in the left occipital lobe. 3 additional small areas of nodular enhancement measuring approximately 3 mm are also identified along the baeza matter surface in the left parietal high convexity. Etiology is nonspecific. MRI cervical spine 03/16: Persistent abnormal signal in the cord extending from C4 down to T1. Much of this likely related to edema. The edema appears to extend over a smaller area on the current exam. There is a linear area of increased signal seen on the T1 and T2-weighted images at the left-sided cord at the C7-T1 level which may represent an area of focal hemorrhage within the cord. Status post laminectomy with posterior fusion and hardware placed at the C4-T1 levels. Prevertebral soft tissue swelling. No focal fluid collection to suggest an abscess. Currently on gabapentin 600 mg 3 times daily/home medication on hold for neuropathy pain Currently on cyclobenzaprine 5 mg every 8 hours. Hold secondary to AMS Schedule oxycodone 2.5 mg by tube every 6 hours as needed breakthrough pain Acetaminophen 650 every 6 hours as needed fever/pain 1 through 5 Tramadol 50 mg every 8 hours as needed pain 6 through 10 C-collar has been removed/okayed by neurosurgery Her neurosurgeon is Dr. Ku [phone] MRI brain 03/27 - small persistent enhancing lesions without significant mass effect or surrounding edema seen in the left occipital and left parietal lobe. These are unchanged. Multiple lesions raises the possibility of metastatic disease versus infection or underlying vascular malformations such as cavernous angiomas. Significant mass effect or edema is not seen. Scattered focal areas of demyelination the cerebral white mattercervical spine 03/27 revealed MRI c spine - 03/27. Persistent well-defined area of fluid signal in the cord at the C5-C6 level. There is more ill-defined suspected edema within the cord at the C4-C7 levels. This appearance is unchanged when compared to the prior MRI examination. Status post laminectomy at the C4-C7 levels with postsurgical hardware seen at the C4-T1 levels. Prominence of the posterior epidural space at the C4-C6 levels with a possible dural defect posteriorly seen at the C5-C6 level. This appearance is unchanged. A small amount of fluid is seen to extend posterior to the suspected dural defect. Persistent prevertebral soft tissue swelling Pulm: Acute hypoxemic respiratory failure-status post percutaneous tracheostomy tube placement by Dr. Serrano 03/24 HCAP Extubated and reintubated on 03/11, failing CPAP trials due to low tidal volumes. Ventilator bundle Albuterol/ipratropium aerosols every 4 hours with albuterol aerosols every 2 hours. Dyspnea Daily CPAP trial CT pulmonary angiogram chest: No PE, minimal consolidative changes left base CV: A. fib/sinus tachycardia Septic shock- resolved. Hyperlipidemia Place on Lopressor 25mg Q6h Monitor HR and BP keep MAP>65mmHg. Pravachol 20mg daily for dyslipidemia - Elevated troponin, type II demand ischemia NSTEMI - Echo 03/06 EF 50-55% - Will not anticoagulate at this time given risk/benefit with recent head bleed Cortisol level: 41 Cards has followed Renal/FEN/: Urinary retention Severe hyponatremia- resolving. Monitor renal function, electrolytes replacement per protocol. Continue oxybutynin 5 mg every 8 hours continue straight cath q4h urine SG, osms, serum osms: not c/w DI. not c/w SIADH. patient does have recent history of SAH on 02/15, but we are > 21 days out from this, so unlikely to be cause of cerebral salt wasting. increase NaCl tabs to 2gm po q8h continues to appear euvolemic will start NS mivf @ 100cc/hr to prevent dehydration trend daily sodiums. may be secondary to iv Bactrim use, would recommend swapping to PO Bactrim when possible, but will support electrolyte disturbances in the interim. GI: Status post PEG tube 03/[address] Sutton Monitor LFT's, CT abd/pelvis without evidence of overt acute cholecystitis Tube feeds- Glucerna 1.5 with goal rate 50ml/hr have been resumed Lansoprazole for GI prophylaxis Docusate sodium/senna 1 tablet twice daily for bowel regimen ID: Urinary tract infection ESBL E. coli bacteremia Pneumonia with Stenotrophomonas s/p Septic shock ID is following (/trimethoprim/sulfamethoxazole, vancomycin) levofloxacin discontinued 03/28 03/24 -bronchoscopy -Stenotrophomonas 03/16 -blood cultures 2 -negative 03/11, 03/15 sputum Stenotrophomonas 03/07: Sputum cx: NG 03/08, 03/09 BC: NGTD 03/06 BC Coag negative staph 03/05 BC: E.coli bacteremia 03/01 BC: E.coli ESBL 03/01 Urine cx: GNR Heme: Normocytic anemia -Monitor CBC, s/p 2u PRBC 03/06 Heme is following- Dr. Miller Hep PLT ab negative FEN TIBC both low Transfuse one PRBC 03/18 MSKRheum Sacral deep tissue injury SLE positive History of RF - present on admission - does not appear grossly infected - likely not the source of infection - management per wound care nurse Endo: SSI if needed for glycemic control On levothyroxine 50mcg daily. TSH: 0.47 GI prophylaxis- On lansoprazole 30 mg daily DVT prophylaxis- SCD, hold Heparin Sq due to recent [employer] bleed in January ( MRI brain 01/29) along with likely current blood at site of C-spine surgery 02/20 Lines: Right subclavian CVL. Discontinued 03/23 PICC right upper extremity placed 03/23 OVERALL IMPRESSION: clinically deconditioned. needs aggressive PT. LTAC would be appropriate.
[2018-04-03] MEDS: Gabapentin 300 MG Capsule PO SCH ×3 (08:16→18:51)
[2018-04-03] MEDS: Chlorhexidine 0.12% Oral Kit 15 ML UDC OROPHARYNG SCH ×2 (08:18→20:30)
[2018-04-03] MEDS: Sod Chloride 0.9% Inj 1,000 ML IV.CONT SCH ×2 (08:18→18:51)
[2018-04-03] MEDS: Heparin Central Flush 100 UNIT/ML 5 ML Vial IV.FLUSH SCH (09:00)
--- NOTE | 2018-04-03 12:22 | P.PNID ---
Subjective Remarks: Patient is comfortable. On CPAP Weekend events noted. Hyponatremia. Afebrile. Opens eyes. Not responding for me otherwise. Sputum culture had Stenotrophomonas from 03/11/2018, 03/27/18. post tracheostomy and PEG tube insertion 03/24/2018. Antibiotics: Bactrim. Lines: Right upper extremity PICC line. Past Medical History: Diabetes mellitus, hypertension, hypothyroidism, systemic lupus erythematosus, rheumatoid arthritis, anemia, recent subarachnoid hemorrhage, C6 mass resection, hysterectomy, bladder sling, appendectomy, C4-C7 laminectomy, C4-T1 posterior fusion. Allergies/Adverse Reactions: Allergies codeine Allergy (Intermediate, Verified 01/24/18 17:12) nitroglycerin Adverse Reaction (Severe, Verified 01/25/18 09:14) Nausea/Vomiting Objective Vital Signs 04/02/18 13:00 04/02/18 13:23 04/02/18 14:00 Temperature Pulse Rate 123 H 123 H 126 H Respiratory Rate 34 H 36 H 32 H Blood Pressure 151/84 H 146/97 H Pulse Oximetry 100 100 97 04/02/18 14:28 04/02/18 15:00 04/02/18 16:00 Temperature 99.6 F Pulse Rate 129 H 118 H Respiratory Rate 24 32 H 31 H Blood Pressure 138/84 139/77 Pulse Oximetry 100 100 89 L 04/02/18 16:15 04/02/18 17:00 04/02/18 17:01 Temperature Pulse Rate 113 H 113 H Respiratory Rate 24 34 H 31 H Blood Pressure 103/74 Pulse Oximetry 100 98 98 04/02/18 18:00 04/02/18 18:07 04/02/18 19:00 Temperature Pulse Rate 120 H 118 H 116 H Respiratory Rate 34 H 22 20 Blood Pressure 116/87 Pulse Oximetry 100 100 04/02/18 19:52 04/02/18 20:00 04/02/18 20:49 Temperature 99.2 F Pulse Rate 116 H 115 H Respiratory Rate 23 27 H 24 Blood Pressure 111/76 106/73 Pulse Oximetry 100 100 100 04/02/18 21:00 04/02/18 22:00 04/02/18 23:00 Temperature Pulse Rate 115 H 112 H 111 H Respiratory Rate 26 H 28 H 29 H Blood Pressure 108/71 117/70 141/66 H Pulse Oximetry 100 100 100 04/03/18 00:00 04/03/18 00:01 04/03/18 01:00 Temperature Pulse Rate 109 H 110 H 110 H Respiratory Rate 30 H 33 H 39 H Blood Pressure 133/60 Pulse Oximetry 100 100 100 04/03/18 01:01 04/03/18 01:11 04/03/18 02:00 Temperature Pulse Rate 112 H 111 H Respiratory Rate 20 26 H 30 H Blood Pressure 111/66 Pulse Oximetry 100 100 100 04/03/18 02:01 04/03/18 03:00 04/03/18 03:03 Temperature Pulse Rate 113 H 115 H 116 H Respiratory Rate 22 25 H 26 H Blood Pressure 111/62 105/75 Pulse Oximetry 100 100 100 04/03/18 04:00 04/03/18 05:00 04/03/18 05:21 Temperature 98.9 F Pulse Rate 108 H 103 H Respiratory Rate 20 13 24 Blood Pressure 113/69 106/61 Pulse Oximetry 100 100 100 04/03/18 06:00 04/03/18 06:01 04/03/18 08:55 Temperature Pulse Rate 106 H 107 H Respiratory Rate 23 35 H 24 Blood Pressure 149/65 H Pulse Oximetry 100 99 97 Intake & Output 04/02/18 04/03/18 04/03/18 18:59 06:59 18:59 Intake Total 720 / 720 943 / 943 Output Total 3300 / 3300 3200 / 3200 Balance -2580 / -2580 -2257 / -2257 Weight 59.6 kg Intake: IV 523 / 523 Bactrim Inj 368 MG In D5W Inj 523 / 523 500 ML @ 348.667 mls/hr IV.SIG Q12H [facility] Rx#:[id number] Tube Feeding 720 / 720 360 / 360 Water Bolus Amount 60 / 60 Output: Urine 500 / 500 200 / 200 Urine Amount (Catheter) 2800 / 2800 3000 / 3000 Straight 2800 / 2800 3000 / 3000 Other: Date of Last Bowel Movement 04/01/18 04/03/18 # Bowel Movements 3 3 03/27/18 14:25 Blood - Line Aerobic Blood Culture - Final No growth in 5 days 03/27/18 14:25 Blood - Line Anaerobic Blood Culture - Final No growth in 5 days 03/27/18 15:01 Blood - Line Aerobic Blood Culture - Final No growth in 5 days 03/27/18 15:01 Blood - Line Anaerobic Blood Culture - Final No growth in 5 days 03/24/18 14:15 Bronchial Washings - Right Lower Lobe Fungal Smear - Final No fungal elements seen 03/24/18 14:15 Bronchial Washings - Right Lower Lobe Fungal Culture - Preliminary No growth in 1 week 03/24/18 14:15 Bronchial Washings - Right Lower Lobe Acid Fast Bacilli Smear - Final No acid fast bacilli seen 03/24/18 14:15 Bronchial Washings - Right Lower Lobe Mycobacterial Culture - Preliminary No growth in 1 week Lab - Hematology Results 04/01/18 04/02/18 04/03/18 15:35 03:25 05:45 WBC 8.0 D 8.1 RBC 2.98 L 3.06 L Hgb 9.2 L D 9.0 L 9.2 L Hct 27.0 L 26.7 L 27.2 L MCV 89.5 88.9 MCH 30.3 30.0 MCHC 33.9 33.8 RDW 16.2 15.7 Plt Count 211 249 MPV 8.7 8.7 Lab - Chemistry Results 04/01/18 04/01/18 04/02/18 15:35 19:40 03:25 Sodium 139 D 136 Potassium 4.0 Chloride 105 D Carbon Dioxide 24.6 Anion Gap 6 BUN 18 Creatinine 0.23 L Estimated GFR Greater than 89 POC Glucose 106 Random Glucose 113 H D Calcium 7.8 L D TSH 5.530 H Free T4 1.43 04/02/18 04/02/18 04/03/18 09:28 20:43 05:45 Sodium 135 L Potassium 4.0 Chloride 104 Carbon Dioxide 23.6 Anion Gap 7 BUN 16 Creatinine 0.30 L Estimated GFR Greater than 89 POC Glucose 107 112 H Random Glucose 102 Calcium 7.7 L TSH Free T4 Imaging: ITS Impressions Head CT 03/12/18 06:59 CONCLUSION: 1. No acute intracranial abnormality. 2. Minimal fluid in the mastoid air cells. Abdomen X-Ray 03/21/18 00:00 CONCLUSION: Nasogastric or orogastric tube tip in distal stomach. Cervical Spine MRI 03/27/18 00:00 CONCLUSION: 1. Persistent well-defined area of fluid signal in the cord at the C5-C6 level. There is more ill-defined suspected edema within the cord at the C4-C7 levels. This appearance is unchanged when compared to the prior MRI examination. 2. Status post laminectomy at the C4-C7 levels with postsurgical hardware seen at the C4-T1 levels. 3. Prominence of the posterior epidural space at the C4-C6 levels with a possible dural defect posteriorly seen at the C5-C6 level. This appearance is unchanged. A small amount of fluid is seen to extend posterior to the suspected dural defect. 4. Persistent prevertebral soft tissue swelling. 1. Head MRI 03/27/18 00:00 CONCLUSION: 1. 2 small persistent enhancing lesions without significant mass effect or surrounding edema seen in the left occipital and left parietal lobe. These are unchanged. Multiple lesions raises the possibility of metastatic disease versus infection or underlying vascular malformations such as cavernous angiomas. Significant mass effect or edema is not seen. 2. Scattered focal areas of demyelination the cerebral white matter. Chest X-Ray 03/30/18 06:00 CONCLUSION: 1. Persistent left basilar consolidation with probable associated effusion. 2. There appears to be some improving aeration in the right hemithorax 3. Stable position of life-support tubes Physical Exam: GENERAL: No acute distress. HEENT: Pupils reactive to light. No icterus. NECK: Supple. No swelling. LUNGS: Bilateral rhonchi. HEART: Regular S1 and S2. No murmurs, rubs or gallops. ABDOMEN: Soft, nontender. Normoactive bowel sounds. EXTREMITIES: No clubbing or cyanosis. No edema. SKIN: No rash. NEUROLOGIC: left hemiparesis. Opens eyes. PSYCH: Unable to fully assess. Lines: PICC line without evidence of infection. Assessment and Plan - Plan IMPRESSION: New fever. Sputum culture has Stenotrophomonas. - temps better Bronchoscopy culture has Stenotrophomonas resistant to Levaquin. Pneumonia due to Stenotrophomonas. ESBL E. coli bacteremia. Treated and resolved.. ESBL E. coli UTI. Treated and resolved. Acute respiratory failure. Post tracheostomy. Status post cervical spine surgery. Brain lesions on MRI. 3 enhancing nodular lesions seen in the left parietal area. Recent subarachnoid hemorrhage. Left hemiparesis. Recommendations: Continue Bactrim IV for Stenotrophomonas PNA. Plan on 7 - 10 days. Monitor clinical status. Monitor temperature. Weaning per [facility] Seems clinically stable from ID standpoint IMPRESSION: New fever. Sputum culture has Stenotrophomonas. Bronchoscopy culture has Stenotrophomonas resistant to Levaquin. Pneumonia due to Stenotrophomonas. ESBL E. coli bacteremia. Treated and resolved.. ESBL E. coli UTI. Treated and resolved. Acute respiratory failure. Post tracheostomy. Status post cervical spine surgery. Brain lesions on MRI. 3 enhancing nodular lesions seen in the left parietal area. Recent subarachnoid hemorrhage. Left hemiparesis. Recommendations: Continue Bactrim IV for Stenotrophomonas PNA. Plan on 7 - 10 days. Monitor clinical status. Follow up CXR. Monitor temperature. Discussed with LUIS.
[2018-04-03 13:23] VITALS: O2SAT 100
--- NOTE | 2018-04-03 13:37 | XR ---
EXAM DATE: 04/03/2018 1:32 PM EDT AGE/SEX: 62 years / Female INDICATIONS: Shortness of breath. CLINICAL DATA: This is the patient's initial encounter. Patient reports that signs and symptoms have been present for 4 - 6 days and indicates a pain score of 0/10. MEDICAL/SURGICAL HISTORY: Hypertension. None. COMPARISON: [facility] – [place], CHEST 1V SINGLE AP, 03/30/2018. [facility] – [place], [place] PULMONARY ANGIOGRAM, 03/01/2018. . FINDINGS: There is a tracheostomy tube identified. EKG leads overlie the chest. Abnormal opacity in the right m id lung is seen and increased from previous study. There is improved aeration on the left however per sistent consolidation of the left lower lobe is noted. Small left effusion. Osseous structures are in tact. Cardiomegaly. CONCLUSION: Increasing consolidation on the right, decreased on the left. Small effusion. Electronically signed by: Maicol Thomason MD 04/03/2018 1:36 PM EDT
[2018-04-03] MEDS: Insulin NovoLIN Regular Correctional Sugar Inj SQ SCH ×2 (16:03→20:30)
[2018-04-03] MEDS: Collagenase Oint 30 GM Tube TOPICAL SCH (18:10)
[2018-04-04] MEDS: Sodium Chloride 1 GM Tablet PO SCH ×2 (00:27→09:06)
[2018-04-04] MEDS: Oral Hygiene Kit OROPHARYNG SCH ×3 (00:27→12:27)
[2018-04-04] MEDS: Metoprolol Tartrate 25 MG Tablet PO SCH ×3 (02:22→14:03)
[2018-04-04] MEDS: WATER IV.SIG SCH ×4 (04:09→14:04)
[2018-04-04] MEDS: Hypromellose 0.3% Opth Gel 10 GM Bottle EACH EYE SCH ×2 (04:09→12:27)
[2018-04-04] MEDS: SULFAMETHOX IV.SIG SCH ×4 (04:09→14:04)
[2018-04-04] MEDS: TRIMETHOPRIM IV.SIG SCH ×4 (04:09→14:04)
[2018-04-04] MEDS: DEXTROSE 5% IV.SIG SCH ×4 (04:09→14:04)
[2018-04-04] MEDS: Sod Chloride 0.9% Inj 1,000 ML IV.CONT SCH ×2 (04:10→14:03)
[2018-04-04] MEDS: Levothyroxine 50 MCG Tablet PO SCH (05:09)
[2018-04-04] MEDS: Acetaminophen 325 MG Tablet PO PRN (05:10)
[2018-04-04 05:40] LABS: Hemoglobin 8.7 gm/dL (11.6-15.3); Mean Corpuscular HGB Conc 33.3 % (32.0-36.0); Mean Corpuscular Volume 89.9 fL (80.0-100.0); Mean Platelet Volume 8.7 fL (7.0-11.0); Platelet Count 256 th/mm3 (150-450); Red Blood Count 2.89 mil/mm3 (4.00-5.30); Red Cell Distribution Width 16.2 % (11.6-17.2); White Blood Count 8.8 th/mm3 (4.0-11.0)
[2018-04-04 06:05] LABS: Anion Gap 6 meq/L (5-15); Blood Urea Nitrogen 20 mg/dL (7-18); Calcium 7.8 mg/dL (8.5-10.1); Carbon Dioxide 22.8 meq/L (21.0-32.0); Chloride 108 meq/L (98-107); Glomerular Filtration Rate Greater Than 89 mL/min (>89); Glucose,Random 104 mg/dL (74-106); Potassium 4.3 meq/L (3.5-5.1); Sodium 137 meq/L (136-145)
[2018-04-04] MEDS: Heparin Central Flush 100 UNIT/ML 5 ML Vial IV.FLUSH SCH (09:06)
[2018-04-04] MEDS: Gabapentin 300 MG Capsule PO SCH ×2 (09:06→14:03)
[2018-04-04] MEDS: Chlorhexidine 0.12% Oral Kit 15 ML UDC OROPHARYNG SCH (09:07)
[2018-04-04] MEDS: Insulin NovoLIN Regular Correctional Sugar Inj SQ SCH (09:21)
--- NOTE | 2018-04-04 09:49 | P.PNCC ---
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 she was sent to [facility] for procedural management of these. She was then transferred to [facility] on 02/28. Please see the dictated hospitalist consult note on 02/28 on admission to [facility] for a detailed record of the hospital course while at [facility]. Today, she was found to be very tachycardic in the 160s and hypotensive with sbp in the 70s. She was emergently transferred to the ICU after rapid response was called for evaluation and management of her hypotension. Of note, she did not have iv access. I met her on arrival to the ICU. I placed 2 18g piv. 12-lead EKG confirms sinus tachycardia. I due to the fast rate, I gave 6mg adenosine to slow it down diagnostically, and it slowed down temporarily to a HR in the 70s, confirming sinus rhythm. I performed bedside critical care echocardiography which demonstrates grossly preserve biventricular function. in particular, RV is decompressed and well-functioning. IVC is completely collapsable. no pericardial effusion. I gave her 3L NS bolus ivf which improved her SBP to 110s and decreased her HR to 110s. She is afebrile. stat CBC shows anemia (history of recent femoral artery pseudoaneurysm), CMP demonstrates elevated AST and Alk phos, elevated lactate at 3.7. Cr elevated above baseline. Patient denies any complaints to me. she is mostly ghanaian speaking, but communicates in basic American. specifically denies chest pain, shortness of breath, fever/chills, nausea, vomiting, abdominal pain, constipation, diarrhea. I discussed with her family, she has been eating and drinking well even up to today. ROS otherwise negative. 03/02 Patient is awake lying in bed in TRAV. On room air oxygen. T:103.2 this morning She was hypotensive overnight initially placed on Neosyn now off pressor with BP 147/67 with MAP 96. 03/03 No events overnight. Seems more awake and alert this morning. T: 100.2 at midnight. BP and HR better ( 119/58 with MAP 83mmHg). On no pressors. BC from 03/01: E.coli ESBL 6/30: clinically improving. slightly tachycardic. on appropriate therapy for her ESBL e. coli. denies complaints. hemodynamically stable. on room air. 03/05: Patient developed worsening respiratory distress yesterday and required endotracheal intubation and was placed on mechanical ventilation. Hypotension overnight for which patient was started on phenylephrine. Developed A. fib with RVR and was started on amiodarone gtt. 03/06 Patient remains sedated and intubated. Tmax 101.6, On Amio drip. 03/07 Patient remains intubated off sedation. s/p transfusion 2u PRBC yesterday. Tolerating tube feeds. Afebrile. Off Amio drip. 03/08 Patient remains intubated. T:100.9 last night. 03/09 No events overnight. Tolerated CPAP for approx 4 hrs yesterday. Off sedation. Afebrile. 03/10 No events overnight T:100.1 at 4am, Awake, patient was on CPAP for short time yesterday and placed back on PRVC mode for low TV and tachycardia. 03/11 No events overnight. Tolerated CPAP x 4hrs yesterday. T:100.6 yesterday. On no sedation. 03/12 Patient was extubated yesterday reintubated last night for resp distress and AMS. Afebrile. On Diprivan infusion for sedation. 03/13: Remains intubated critical, remains encephalopathy unresponsive off sedation. Afebrile EEG showed significant encephalopathy no seizures. Right subclavian central line placed, remains on Luis-Synephrine to keep map above 65 03/14: Remains encephalopathy again unresponsive. Eyes are open but no tracking did not follow commands. Remains leukopenic. Weaned off Luis-Synephrine. Not tolerating CPAP due to low tidal volume 03/15: Continues to fail CPAP due to low tidal volume. IV Levaquin added yesterday by ID for stenotrophomonas in the sputum. Remains encephalopathic did not follow commands but eyes are spontaneously open. I have requested neurology consult today 03/16: T-max 100.1. Currently 99. EEG has been performed. Does not follow commands. Tube feeds at 30 cc an hour. Positive BM. 03/17 Patient remains intubated on Precedex drip but awake. 03/18 T-current 100.7. Tolerating tube feeds at goal. Arousable the ventilator and follows command. Left side is chronically weaker. Discussed with Dr. Gutierrez /neurology. Reviewed MRI brain. Recommended evaluation by neurosurgery for abnormal MRI C-spine. Patient's CT surgeon at [facility] is Dr. Ku 03/19: T-max 100.7. Currently 99. Tachycardic. Tolerated CPAP trial. On the ventilator currently. Positive BM yesterday. 03/20 Patient was on Diprivan and Precedex drip overnight now off sedation. Afebrile. 03/21: no improvements. has been intubated for 17 days, and failed extubation quickly 03/12. needs trach and peg for further progress. 03/22: Afebrile. Intubation day #18. Patient currently contemplating trach and PEG options. Currently off dexmedetomidine drip. 03/23: Afebrile. Plan for PEG tube today. Awake and alert and interactive on the ventilator. Tube feeds are currently off. 03/24: Afebrile. Status post PEG tube by Dr. Orellana 03/23. Plan for percutaneous tracheostomy Dr. Serrano at 10 AM today 03/24. Tachycardic. Will replace phosphorus and magnesium this a.m. 03/25: Status post tracheostomy 03/[address] Serrano. Currently on PSV trial. No new issues overnight. Tube feeds at goal. 03/26: Low-grade temperatures overnight. Tube feeds have been restarted. Will start on CPAP trials today. 03/27: T-max 102.2. Blood cultures have been drawn today. Tube feeds of been resumed. Has been new concern about new altered mental status. Opens eyes but not following commands. MRI brain/C-spine ordered tonight 03/28: Afebrile today. MRI brain revealed 3 left parietal lesion/stable. MRI C- spine without significant change. Opens mouth to command for temperature today. Slight movement of bilateral upper extremities. 03/29: T-max 99.8. Currently afebrile. Slightly more interactive today. Tolerating tube feeds. Positive BM. 03/30: no changes. diarrhea which may be associated with continuous tube feeds: will transition to bolus tube feeds and add fiber to diet. 03/31: uop continues to be very high: straight caths with >1000mL q4h. will send urine SG and osms. sodium has remained stable for days- unlikely to be DI. could possibly be autodiuresis from chronic volume overload over the past hospitalization. otherwise, no other changes. 04/01: serum sodium dropped precipitously to 129 from 138 yesterday. urine output continues to be > 5L/day. urine studies and change in serum sodium are not consistent with DI. serum and urine osmolality not consistent with SIADH. could be cerebral salt wasting, but no clear reason for this either. clinically appears quite euvolemic, not dehydrated or volume overloaded. no peripheral edema anywhere. will be forced to increase sodium administration in the form of saline and ivf. Also, hgb dropped < 7 today. no signs of melena. no other evidence of bleeding. will send haptoglobin and LDH. 04/02: serum sodium improved with interventions. unclear if this was lab error or true, though today back to 136. TSH elevated, but free t4 appropriate (sick euthyroid syndrome). patient denies complaints. 04/03: sodium slowly downtrending. continues with vigorous diuresis. iv bactrim may be a cause of hyponatremia, but requires this for her Stenotrophomonas. no other concerns. rested on vent overnight. Subjective 04/04: sodium improving. no changes. continues to be weak. needs LTAC level care. Objective Vital Signs / I&O: Vital Signs 04/03/18 10:00 04/03/18 11:00 04/03/18 11:30 Temperature Pulse Rate 104 H 103 H Respiratory Rate 19 23 19 Blood Pressure 105/66 105/72 Pulse Oximetry 100 100 100 04/03/18 12:00 04/03/18 13:00 04/03/18 13:01 Temperature Pulse Rate 103 H 103 H 103 H Respiratory Rate 26 H 19 22 Blood Pressure 98/73 L 108/64 Pulse Oximetry 100 100 100 04/03/18 14:00 04/03/18 15:00 04/03/18 15:01 Temperature Pulse Rate 100 H 100 H 101 H Respiratory Rate 17 22 43 H Blood Pressure 99/57 L 137/67 Pulse Oximetry 100 100 100 04/03/18 15:30 04/03/18 16:00 04/03/18 17:00 Temperature Pulse Rate 100 H 102 H Respiratory Rate 16 4 L 20 Blood Pressure 104/57 L Pulse Oximetry 100 100 100 04/03/18 17:01 04/03/18 18:00 04/03/18 19:00 Temperature Pulse Rate 103 H 97 H 97 H Respiratory Rate 19 21 18 Blood Pressure 102/74 96/51 L 89/57 L Pulse Oximetry 100 100 100 04/03/18 20:00 04/03/18 21:10 04/03/18 22:00 Temperature 37.7 C H Pulse Rate 98 H 102 H Respiratory Rate 16 26 H Blood Pressure 110/59 L Pulse Oximetry 100 100 04/04/18 00:00 04/04/18 02:00 04/04/18 04:00 Temperature 37.0 C 38.2 C H Pulse Rate 106 H 112 H 117 H Respiratory Rate 23 19 Blood Pressure 121/69 113/76 Pulse Oximetry 100 100 04/04/18 04:03 04/04/18 06:00 04/04/18 07:40 Temperature Pulse Rate 96 H Respiratory Rate 19 18 Blood Pressure Pulse Oximetry 100 100 Intake & Output 04/03/18 04/04/18 04/04/18 18:59 06:59 18:59 Intake Total 1523 / 1523 1360 / 1360 Output Total 2250 / 2250 1325 / 1325 Balance -727 / -727 35 / 35 Weight 57.5 kg Intake: IV 1523 / 1523 1000 / 1000 NS Inj 1,000 ML @ 100 mls/hr IV 1000 / 1000 1000 / 1000 .CONT .Q10H KARINA Rx#:[id number] Bactrim Inj 368 MG In D5W Inj 523 / 523 500 ML @ 348.667 mls/hr IV.SIG Q12H KARINA Rx#:[id number] Oral 0 / 0 Tube Feeding 360 / 360 Tube Irrigant 0 / 0 Water Bolus Amount 0 / 0 Other 0 / 0 Output: Urine 0 / 0 Stool 0 / 0 Urine/Stool Mix 0 / 0 Urine Amount (Catheter) 2250 / 2250 1325 / 1325 Straight 2250 / 2250 1325 / 1325 Other: # Voids 0 Date of Last Bowel Movement 04/03/18 04/04/18 # Bowel Movements 5 3 # Incontinent Bowel Movements 3 # Emeses 0 # Oral Regurgitations 0 Result Diagrams: 04/04/18 04:05 04/04/18 04:05 Objective Remarks: GENERAL: Patient is 62 yo female patient currently on t-piece via tracheostomy resting in bed in no acute distress SKIN: Warm and dry. No rash. Sacral DTI HEAD: Normocephalic. EYES: No scleral icterus. No injection or drainage. NECK: Supple, trachea midline. No JVD. #8 Shiley percutaneous tracheostomy site is clean dry and intact. CARDIOVASCULAR: Tachycardic, RR. RESPIRATORY: Breath sounds equal bilaterally. No accessory muscle use. Diminished in the bases bilaterally. GASTROINTESTINAL: Abdomen soft, non-tender, nondistended. PEG tube site is clean dry and intact. MUSCULOSKELETAL: no edema today of the LEs. NEURO: Arousable and follows commands with bilateral upper extremities. She is Macanese-speaking and can understand some American phrases. Assessment and Plan - Assessment and Plan Plan: Neuro/Psych: History of C6 vertebral aneurysm and underwent a C4 through T1 posterior fusion resection of the C6 mass which was negative for malignancy with 90% of mass removed, just showing inflammation, and a C4 through 7 laminectomy on 02/03/2018. Severe metabolic encephalopathy- resolving Recent aneurysmal subarachnoid hemorrhage treated at [facility] in January 2018 History of left occipital subarachnoid hemorrhage February 15, 2018 Cord edema possible hemorrhage within the cord level C7 through T1 Repeat CT brain showed no acute abnormalities. EEG significant encephalopathy [place] [facility] [place] further neurosurgical intervention anticipated at this point. MRI brain: previously noted subarachnoid hemorrhage overlying the occipital lobes has resolved. Tiny trace of residual hemorrhage in the posterior lateral ventricles. Stable chronic white matter changes. No new or acute intracranial process. Neurology consult requested Dr. Arellano/follow-up has followed EEG: Mod. encephalopathy MRI brain 03/16 : There is a new area of nodular enhancement, abnormal FLAIR signal, and mild restricted diffusion at the baeza matter white matter junction in the left occipital lobe. 3 additional small areas of nodular enhancement measuring approximately 3 mm are also identified along the baeza matter surface in the left parietal high convexity. Etiology is nonspecific. MRI cervical spine 03/16: Persistent abnormal signal in the cord extending from C4 down to T1. Much of this likely related to edema. The edema appears to extend over a smaller area on the current exam. There is a linear area of increased signal seen on the T1 and T2-weighted images at the left-sided cord at the C7-T1 level which may represent an area of focal hemorrhage within the cord. Status post laminectomy with posterior fusion and hardware placed at the C4-T1 levels. Prevertebral soft tissue swelling. No focal fluid collection to suggest an abscess. Currently on gabapentin 600 mg 3 times daily/home medication on hold for neuropathy pain Currently on cyclobenzaprine 5 mg every 8 hours. Hold secondary to AMS Schedule oxycodone 2.5 mg by tube every 6 hours as needed breakthrough pain Acetaminophen 650 every 6 hours as needed fever/pain 1 through 5 Tramadol 50 mg every 8 hours as needed pain 6 through 10 C-collar has been removed/okayed by neurosurgery Her neurosurgeon is Dr. Ku [phone] MRI brain 03/27 - small persistent enhancing lesions without significant mass effect or surrounding edema seen in the left occipital and left parietal lobe. These are unchanged. Multiple lesions raises the possibility of metastatic disease versus infection or underlying vascular malformations such as cavernous angiomas. Significant mass effect or edema is not seen. Scattered focal areas of demyelination the cerebral white mattercervical spine 03/27 revealed MRI c spine - 03/27. Persistent well-defined area of fluid signal in the cord at the C5-C6 level. There is more ill-defined suspected edema within the cord at the C4-C7 levels. This appearance is unchanged when compared to the prior MRI examination. Status post laminectomy at the C4-C7 levels with postsurgical hardware seen at the C4-T1 levels. Prominence of the posterior epidural space at the C4-C6 levels with a possible dural defect posteriorly seen at the C5-C6 level. This appearance is unchanged. A small amount of fluid is seen to extend posterior to the suspected dural defect. Persistent prevertebral soft tissue swelling Pulm: Acute hypoxemic respiratory failure-status post percutaneous tracheostomy tube placement by Dr. Serrano 03/24 HCAP Extubated and reintubated on 03/11, failing CPAP trials due to low tidal volumes. Ventilator bundle Albuterol/ipratropium aerosols every 4 hours with albuterol aerosols every 2 hours. Dyspnea Daily CPAP trial CT pulmonary angiogram chest: No PE, minimal consolidative changes left base CV: A. fib/sinus tachycardia Septic shock- resolved. Hyperlipidemia Place on Lopressor 25mg Q6h Monitor HR and BP keep MAP>65mmHg. Pravachol 20mg daily for dyslipidemia - Elevated troponin, type II demand ischemia NSTEMI - Echo 03/06 EF 50-55% - Will not anticoagulate at this time given risk/benefit with recent head bleed Cortisol level: 41 Cards has followed Renal/FEN/: Urinary retention Severe hyponatremia- resolving. Monitor renal function, electrolytes replacement per protocol. Continue oxybutynin 5 mg every 8 hours continue straight cath q4h urine SG, osms, serum osms: not c/w DI. not c/w SIADH. patient does have recent history of SAH on 02/15, but we are > 21 days out from this, so unlikely to be cause of cerebral salt wasting. NaCl tabs 2gm po q8h continues to appear euvolemic continue NS mivf @ 100cc/hr to prevent dehydration trend daily sodiums. may be secondary to iv Bactrim use, would recommend swapping to PO Bactrim when possible, but will support electrolyte disturbances in the interim. GI: Status post PEG tube 03/[address] Sutton Monitor LFT's, CT abd/pelvis without evidence of overt acute cholecystitis Tube feeds- Glucerna 1.5 with goal rate 50ml/hr have been resumed Lansoprazole for GI prophylaxis Docusate sodium/senna 1 tablet twice daily for bowel regimen ID: Urinary tract infection ESBL E. coli bacteremia Pneumonia with Stenotrophomonas s/p Septic shock ID is following (/trimethoprim/sulfamethoxazole, vancomycin) levofloxacin discontinued 03/28 03/24 -bronchoscopy -Stenotrophomonas 03/16 -blood cultures 2 -negative 03/11, 03/15 sputum Stenotrophomonas 03/07: Sputum cx: NG 03/08, 03/09 BC: NGTD 03/06 BC Coag negative staph 03/05 BC: E.coli bacteremia 03/01 BC: E.coli ESBL 03/01 Urine cx: GNR Heme: Normocytic anemia -Monitor CBC, s/p 2u PRBC 03/06 Heme is following- Dr. Miller Hep PLT ab negative FEN TIBC both low Transfuse one PRBC 03/18 MSKRheum Sacral deep tissue injury SLE positive History of RF - present on admission - does not appear grossly infected - likely not the source of infection - management per wound care nurse Endo: SSI if needed for glycemic control On levothyroxine 50mcg daily. TSH: 0.47 GI prophylaxis- On lansoprazole 30 mg daily DVT prophylaxis- SCD, hold Heparin Sq due to recent [employer] bleed in January ( MRI brain 01/29) along with likely current blood at site of C-spine surgery 02/20 Lines: Right subclavian CVL. Discontinued 03/23 PICC right upper extremity placed 03/23 OVERALL IMPRESSION: clinically deconditioned. needs aggressive PT. LTAC would be appropriate.
--- NOTE | 2018-04-04 11:03 | P.CONWOU ---
History of Present Illness Service: 04/04/18 Consult date: 03/30/18 (Consult left on voicemail on 03/30 at 5:35pm) Requesting Physician: Jonathon Rodriguez Reason for Consult: Evaluation of sacral pressure injury Primary Care Provider: CESAR EL History of Present Illness: Patient seen on 04/04/18 with wound care nurse and assigned nurse Kaitlynn for evaluation of sacral pressure injury. Patient lying in bed , on ventilator and non verbal. History reviewed in the EMR. Review of Systems Gastrointestinal: Reports incontinent of stools PMFSH - History History Provided By: Family Member, Medical Record - Medical / Surgical Hx Neg / Unobtainable Medical Problems Denied: Unable to Obtain - Medical History Medical History: Medical History (Last Reviewed 04/04/18 @ 09:21 by Ai Becerra) Rheumatoid arthritis (Acute) Subarachnoid hemorrhage (Acute) Thrombocytopenia (Acute) Anemia (Acute) Hypothyroidism (Acute) Hypertension (Acute) Diabetes mellitus (Acute) Lupus (systemic lupus erythematosus) (Acute) History of hysterectomy Left renal mass - Surgical History Surgical History: Surgical History (Last Reviewed 04/04/18 @ 09:21 by Ai Becerra) S/P laminectomy with spinal fusion (Acute) History of bladder surgery (Acute) History of appendectomy S/P laminectomy with spinal fusion - Family History Family History: Family History (Last Updated 03/21/18 @ 18:37 by Anselmo Douglas MD) Mother Myocardial infarction Other Diabetes mellitus Hypertension - Tobacco History Second Hand Smoke Exposure: No Smoking Status: Never smoker - Alcohol History How Often Do You Have a Drink Containing Alcohol: Never - Substance Use History Substance History: No History of Abuse - Travel History History of Recent Travel: No Recent Travel in the [place] Within the Last 8 Weeks: No Recent Travel Out of the Country Within the Last 8 Weeks: No Medications and Allergies Active Medications: Active Medications Acetaminophen (Tylenol) 650 mg PO Q6H PRN PRN Reason: PAIN 1-5 AND/OR FEVER > 101F Last Admin: 04/04/18 05:10 Dose: 650 mg Albuterol (Albuterol Neb (Prn)) 2.5 mg NEB Q2HR NEB PRN PRN Reason: DYSPNEA Artificial Tears (Genteal Severe Dry Eye Relief 0.3% Opth Gel) 1 drops EACH EYE Q8H [facility] Last Admin: 04/04/18 04:09 Dose: Not Given Chlorhexidine Gluconate (Peridex 0.12% Oral Kit) 15 ml OROPHARYNG BID@0800, 2000 [facility] Last Admin: 04/04/18 09:07 Dose: 15 ml Collagenase (Santyl Oint) 1 applicatio TOPICAL Q24H [facility] Last Admin: 04/03/18 18:10 Dose: 1 applicatio Cyclobenzaprine HCl (Flexeril) 5 mg PO TID [facility] Last Admin: 04/04/18 09:05 Dose: 5 mg Dextrose (D50w Vial) 50 ml IV.PUSH UNSCH PRN PRN Reason: PER HYPOGLYCEMIA PROTOCOL Last Admin: 03/23/18 23:41 Dose: 50 ml Gabapentin (Neurontin) 600 mg PO TID [facility] Last Admin: 04/04/18 09:06 Dose: 600 mg Glucagon (Glucagon Inj) 1 mg OTHER PRN PRN PRN Reason: for Hypoglycemia Protocol Heparin Sodium (Porcine) (Heparin Central Flush) 0 unit IV.FLUSH UNSCH PRN PRN Reason: Flush PICC Line Last Admin: 03/30/18 08:38 Dose: 200 unit Heparin Sodium (Porcine) (Heparin Central Flush) 0 unit IV.FLUSH DAILY [facility] Last Admin: 04/04/18 09:06 Dose: 200 unit Trimethoprim/Sulfamethoxazole (368 mg/ Dextrose) 523 mls @ 348.667 mls/hr IV.SIG Q12H [facility] Last Admin: 04/04/18 04:09 Dose: 349 mls/hr Sodium Chloride (Ns Inj) 1,000 mls @ 100 mls/hr IV.CONT .Q10H [facility] Last Admin: 04/04/18 04:10 Dose: 100 mls/hr Magnesium Sulfate Inj 4 gm/ (Sodium Chloride) 100 mls @ 50 mls/hr IV.SIG UNSCH PRN PRN Reason: For Magnesium 0.9 - 1.1 mg/dL Magnesium Sulfate Inj 2 gm/ (Sodium Chloride) 100 mls @ 50 mls/hr IV.SIG UNSCH PRN PRN Reason: For Magnesium 1.2 - 1.6 mg/dL Last Infusion: 03/26/18 07:05 Dose: Infused Potassium Chloride (Kcl 40 Meq Premix Inj) 40 meq in 100 mls @ 25 mls/hr IV.SIG Q2H PRN PRN Reason: For Potassium 2.8 - 3.2 mEq/L Potassium Chloride (Kcl 40 Meq Premix Inj) 40 meq in 100 mls @ 25 mls/hr IV.SIG UNSCH PRN PRN Reason: For Potassium 3.3 - 3.5 mEq/L Last Infusion: 03/24/18 02:27 Dose: Infused Potassium Chloride (Kcl 20 Meq Premix Inj) 20 meq in 100 mls @ 50 mls/hr IV.SIG Q2H PRN PRN Reason: For Potassium 2.8 - 3.2 mEq/L Potassium Phosphate 30 mmol/ (Sodium Chloride) 260 mls @ 42 mls/hr IV.SIG UNSCH PRN PRN Reason: SEE LABEL COMMENTS Last Infusion: 03/26/18 20:00 Dose: Infused Sodium Phosphate 30 meq/ (Sodium Chloride) 257.5 mls @ 42 mls/hr IV.SIG UNSCH PRN PRN Reason: For Phosphorus < 2.5 mg/dL Last Infusion: 03/28/18 06:50 Dose: Infused Insulin Human Regular (Novolin R Correctional Sugar Inj) 0 units SQ BID@0800, 1999 [facility]; Protocol Last Admin: 04/04/18 09:21 Dose: Not Given Lansoprazole (Prevacid Solutab) 30 mg NG/OG DAILY [facility] Last Admin: 04/04/18 09:06 Dose: 30 mg Levothyroxine Sodium (Synthroid) 50 mcg PO DAILY@0600 [facility] Last Admin: 04/04/18 05:09 Dose: 50 mcg Magnesium Oxide (Mag-Ox) 800 mg PO UNSCH PRN PRN Reason: For Magnesium 1.2 - 1.6 mg/dL Metoprolol Tartrate (Lopressor) 25 mg PO Q6H [facility] Last Admin: 04/04/18 09:05 Dose: 25 mg Miscellaneous (Pill Splitter) 1 each OTHER UNSCH PRN PRN Reason: SEE LABEL COMMENTS Ondansetron HCl (Zofran Odt) 4 mg PO Q6H PRN PRN Reason: NAUSEA OR VOMITING Last Admin: 03/13/18 05:49 Dose: 4 mg Oxybutynin Chloride (Ditropan) 5 mg PO Q8HR [facility] Last Admin: 04/04/18 05:09 Dose: Not Given Oxycodone HCl (Roxicodone Intensol Liq) 2.5 mg G-TUBE Q6H PRN PRN Reason: BREAKTHROUGH PAIN Last Admin: 03/31/18 20:36 Dose: 2.5 mg Potassium Bicarb/Potassium Chloride (K-Lyte Cl Eff) 50 meq PO UNSCH PRN PRN Reason: For Potassium 3.3 - 3.5 mEq/L Potassium Phosphate (K-Phos Original) 2,000 mg PO Q4H PRN PRN Reason: Phosphorus Less Than 2.5 mg/dL Potassium Phosphate (K-Phos Original) 2,000 mg PO UNSCH PRN PRN Reason: SEE LABEL COMMENTS Pravastatin Sodium (Pravachol) 20 mg PO DAILY [facility] Last Admin: 04/04/18 09:06 Dose: 20 mg Sodium Chloride (Sodium Chloride) 2 gm PO Q8H [facility] Last Admin: 04/04/18 09:06 Dose: 2 gm Sodium Chloride (Ns Flush) 0 ml IV.FLUSH UNSCH [facility]; Protocol Last Admin: 04/04/18 09:07 Dose: 2 ml Sodium Chloride (Ns Flush) 2 ml IV.FLUSH BID [facility]; Protocol Last Admin: 04/04/18 09:07 Dose: 2 ml Sodium Chloride (Ns Flush) 0 ml IV.FLUSH DAILY [facility] Last Admin: 04/04/18 09:07 Dose: Not Given Sodium Chloride (Ns Flush) 0 ml IV.FLUSH UNSCH PRN PRN Reason: FLUSH AFTER USING IV ACCESS Last Admin: 03/30/18 08:39 Dose: 10 ml Sodium Chloride (Ns Flush) 0 ml IV.FLUSH UNSCH PRN PRN Reason: Flush After Blood Draws Tramadol HCl (Ultram) 50 mg PO Q8H PRN PRN Reason: PAIN 6-10 Last Admin: 04/03/18 03:18 Dose: 50 mg Allergies Allergy/AdvReac Type Severity Reaction Status Date / Time codeine Allergy Intermediate Verified 01/24/18 17:12 nitroglycerin AdvReac Severe Nausea/Vomi Verified 01/25/18 09:14 ting Home Medications Medication Instructions Recorded Confirmed Type Bactrim DS 1 tab PO BID 03/04/18 03/04/18 History Ditropan XL 5 mg PO Q8HR 03/04/18 03/04/18 History Lopressor 25 mg PO BID 03/04/18 03/04/18 History Multiple Vitamins 1 tab PO DAILY 03/04/18 03/04/18 History dssresxnxr-gdxgqtgyoyzbi-flxy 1 tab PO Q4HR 03/04/18 03/04/18 History cyclobenzaprine 5 mg PO TID 03/04/18 03/04/18 History famotidine 20 mg PO BID 03/04/18 03/04/18 History gabapentin 600 mg PO TID 03/04/18 03/04/18 History levothyroxine 50 mcg PO DAILY 03/04/18 03/04/18 History lovastatin 20 mg PO DAILY 03/04/18 03/04/18 History metformin 500 mg PO BID 03/04/18 03/04/18 History mycophenolate mofetil 1,000 mg PO BID 03/04/18 03/04/18 History prednisone See Label Instructions .ROUTE 03/04/18 03/04/18 History .COMPLEX tramadol 50 mg PO Q8HR 03/04/18 03/04/18 History Physical Exam Vital signs: Vital Signs 04/03/18 11:00 04/03/18 11:30 04/03/18 12:00 Temperature Pulse Rate 103 H 103 H Respiratory Rate 23 19 26 H Blood Pressure 105/72 98/73 L Pulse Oximetry 100 100 100 04/03/18 13:00 04/03/18 13:01 04/03/18 14:00 Temperature Pulse Rate 103 H 103 H 100 H Respiratory Rate 19 22 17 Blood Pressure 108/64 99/57 L Pulse Oximetry 100 100 100 04/03/18 15:00 04/03/18 15:01 04/03/18 15:30 Temperature Pulse Rate 100 H 101 H Respiratory Rate 22 43 H 16 Blood Pressure 137/67 Pulse Oximetry 100 100 100 04/03/18 16:00 04/03/18 17:00 04/03/18 17:01 Temperature Pulse Rate 100 H 102 H 103 H Respiratory Rate 4 L 20 19 Blood Pressure 104/57 L 102/74 Pulse Oximetry 100 100 100 04/03/18 18:00 04/03/18 19:00 04/03/18 20:00 Temperature 99.9 F H Pulse Rate 97 H 97 H 98 H Respiratory Rate 21 18 15 Blood Pressure 96/51 L 89/57 L 110/59 L Pulse Oximetry 100 100 100 04/03/18 20:01 04/03/18 20:29 04/03/18 21:00 Temperature Pulse Rate 98 H 99 H 101 H Respiratory Rate 16 18 26 H Blood Pressure 110/59 L 100/60 94/61 L Pulse Oximetry 100 100 100 04/03/18 21:10 04/03/18 22:00 04/03/18 23:00 Temperature Pulse Rate 102 H 105 H Respiratory Rate 26 H 24 26 H Blood Pressure 93/59 L 96/60 L Pulse Oximetry 100 100 100 04/04/18 00:00 04/04/18 00:01 04/04/18 01:00 Temperature 98.6 F Pulse Rate 106 H 107 H 111 H Respiratory Rate 23 23 26 H Blood Pressure 121/69 121/69 117/77 Pulse Oximetry 100 100 100 04/04/18 02:00 04/04/18 03:00 04/04/18 04:00 Temperature 100.8 F H Pulse Rate 112 H 115 H 117 H Respiratory Rate 25 H 28 H 29 H Blood Pressure 115/62 114/73 113/76 Pulse Oximetry 100 100 100 04/04/18 04:03 04/04/18 05:00 04/04/18 05:01 Temperature Pulse Rate 106 H 107 H Respiratory Rate 19 32 H 31 H Blood Pressure 119/79 Pulse Oximetry 100 100 96 04/04/18 06:00 04/04/18 07:00 04/04/18 07:40 Temperature Pulse Rate 96 H 92 H Respiratory Rate 19 17 18 Blood Pressure 103/62 98/54 L Pulse Oximetry 100 100 100 04/04/18 08:00 04/04/18 09:00 Temperature 96.9 F L Pulse Rate 93 H 89 Respiratory Rate 16 16 Blood Pressure 111/67 100/58 L Pulse Oximetry 100 100 Intake & Output 04/03/18 04/04/18 04/04/18 18:59 06:59 18:59 Intake Total 1523 / 1523 1360 / 1360 Output Total 2250 / 2250 1325 / 1325 Balance -727 / -727 35 / 35 Weight 57.5 kg Intake: IV 1523 / 1523 1000 / 1000 NS Inj 1,000 ML @ 100 mls/hr IV 1000 / 1000 1000 / 1000 .CONT .Q10H [facility] Rx#:[id number] Bactrim Inj 368 MG In D5W Inj 523 / 523 500 ML @ 348.667 mls/hr IV.SIG Q12H [facility] Rx#:[id number] Oral 0 / 0 Tube Feeding 360 / 360 Tube Irrigant 0 / 0 Water Bolus Amount 0 / 0 Other 0 / 0 Output: Urine 0 / 0 Stool 0 / 0 Urine/Stool Mix 0 / 0 Urine Amount (Catheter) 2250 / 2250 1325 / 1325 Straight 2250 / 2250 1325 / 1325 Other: # Voids 0 Date of Last Bowel Movement 04/03/18 04/04/18 04/04/18 # Bowel Movements 5 3 # Incontinent Bowel Movements 3 # Emeses 0 # Oral Regurgitations 0 - Urinary Catheter Management Straight Cath placed during this visit: yes, but has since been removed by the nurse Reason for continuing: Not indwelling catheter Insertion date: 04/04/18 Insertion time: 04:00 Removal date: 04/04/18 Removal time: 04:30 Indwelling Urethral Catheter Cath placed during this visit: yes, but has since been removed by the nurse Reason for continuing: Continue criteria not met Insertion date: 03/22/18 Insertion time: 15:30 Removal date: 03/21/18 Removal time: 23:30 Indwelling Temp Sensing Catheter Cath placed during this visit: no Wound/Pressure Injury - Patient Status Premedicated for Pain Prior to Dressing Change: No - Wound Sacrum Wound Staging: Stage IV Wound Assessment: Ongoing Wound Type: Pressure Injury Is This a Chronic Wound: Yes Requested from Provider a Wound Care Consult: Yes Length: 4.3 (cm) Width: 2.6 (cm) Depth: 2 Wound Bed Appearance: Red Dressing Status: Dry & Intact Cleansing Solution: Saline Primary Dressing: Duoderm Midline Posterior Sacrum Wound Staging: Unstageable Wound Assessment: Ongoing Wound Type: Pressure Injury Is This a Chronic Wound: Yes Requested from Provider a Wound Care Consult: Yes Length: 5 Width: 3 Depth: 0.5 Wound Bed Appearance: Red, Tunneling/Undermining Surrounding Tissue Appearance: Erythema Surrounding Tissue Temperature: Warm Drainage Description: Serosanguinous Drainage Amount: None Drainage Odor: No Odor Dressing Status: Changed Cleansing Solution: Saline Topical: Enzymatic Debridement Ointment Wound Packing Type: Gauze Pads Primary Dressing: Gauze Pad Cover Dressing: Bordered gauze Tape Type: Paper Wound Dressing Change Date: 03/30/18 Left Chin Wound Assessment: Ongoing Wound Type: Pressure Injury Is This a Chronic Wound: No Requested from Provider a Wound Care Consult: No Length: 2 Width: 1 Wound Bed Appearance: Peeling Skin, Martorell Surrounding Tissue Appearance: Dark Red, Erythema Surrounding Tissue Temperature: Warm Drainage Amount: None Drainage Odor: No Odor Dressing Status: Dry & Intact Cleansing Solution: Saline Primary Dressing: Gauze Pad Cover Dressing: Gauze Pads Left Neck Wound Assessment: Ongoing Wound Type: Pressure Injury Wound Bed Appearance: Red Dressing Status: Dry & Intact Cleansing Solution: Saline Primary Dressing: Duoderm Incision - Patient Status Premedicated for Pain Prior to Dressing Change: No - Incision Midline Abdomen Incision Type: Incision Primary Dressing: Gauze Pad Cover Dressing: Gauze Pads Tape Type: Silk Assessment and Plan - Assessment (1) Sacral decubitus ulcer, stage IV Code(s): L89.154 - Pressure ulcer of sacral region, stage 4 Status: Chronic Plan: Wound dimensions this week are: 4.3cmx2.6cm with partial thickness from 12oclock to 4 oclock x 2.3cm with undermining from 10 oclock to 5 oclock with max depth at 3 oclock of 2.2cm. Wound was mechanically debrided down to subcutaneous tissue until a good bleeding base was achieved to remove wound detritus until a good bleeding base was achieved. Bone was palpated on debridement. Wound was cleaned with normal saline and dressed with santyl on a moistened gauze which was placed into the wound bed and covered with optiva gentle. Patient tolerated this well. Wound care orders submitted and patient is to be moced from side to side q2 hours. If she is to be placed in a chair, max time is 1 hour and she needs to be on a roho cushion. Physical therapy ordered. (2) Deep tissue injury Code(s): T14.8XXA - Other injury of unspecified body region, initial encounter Status: Acute Plan: Dimensions of the DTI is 15.2cmx15.2cm x<0.1cm. The dressing was changed from border gauze to optifoam gentle as the border gauze may have contributed to the DTI. Patient is to be turned q2 hours from side to side to avoid exacerbation of the DTI. (3) Fecal incontinence Code(s): R15.9 - Full incontinence of feces Status: Acute Plan: Patient was stooling throughout the encounter and this may be a barrier to wound healing especially if the faeces gets into the wound bed. This was discussed with the nurse who reported that her stools are frequent but not baggable. If this persists, patient may benefit from a rectal tube and will also require frequent checks if this is not possible to place so that faeces is prevented from entering the wound bed.
[2018-04-04 13:17] VITALS: BP 105/57; RESP 33; TEMP 96.8
--- NOTE | 2018-04-04 13:23 | P.DS ---
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 she was sent to [facility] for procedural management of these. She was then transferred to [facility] on 02/28. Please see the dictated hospitalist consult note on 02/28 on admission to [facility] for a detailed record of the hospital course while at [facility]. Today, she was found to be very tachycardic in the 160s and hypotensive with sbp in the 70s. She was emergently transferred to the ICU after rapid response was called for evaluation and management of her hypotension. Of note, she did not have iv access. I met her on arrival to the ICU. I placed 2 18g piv. 12-lead EKG confirms sinus tachycardia. I due to the fast rate, I gave 6mg adenosine to slow it down diagnostically, and it slowed down temporarily to a HR in the 70s, confirming sinus rhythm. I performed bedside critical care echocardiography which demonstrates grossly preserve biventricular function. in particular, RV is decompressed and well-functioning. IVC is completely collapsable. no pericardial effusion. I gave her 3L NS bolus ivf which improved her SBP to 110s and decreased her HR to 110s. She is afebrile. stat CBC shows anemia (history of recent femoral artery pseudoaneurysm), CMP demonstrates elevated AST and Alk phos, elevated lactate at 3.7. Cr elevated above baseline. Patient denies any complaints to me. she is mostly mozambican speaking, but communicates in basic [place]. specifically denies chest pain, shortness of breath, fever/chills, nausea, vomiting, abdominal pain, constipation, diarrhea. I discussed with her family, she has been eating and drinking well even up to today. ROS otherwise negative. 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 she was sent to [facility] for procedural management of these. She was then transferred to [facility] on 02/28. Please see the dictated hospitalist consult note on 02/28 on admission to [facility] for a detailed record of the hospital course while at [facility]. Today, she was found to be very tachycardic in the 160s and hypotensive with sbp in the 70s. She was emergently transferred to the ICU after rapid response was called for evaluation and management of her hypotension. Of note, she did not have iv access. I met her on arrival to the ICU. I placed 2 18g piv. 12-lead EKG confirms sinus tachycardia. I due to the fast rate, I gave 6mg adenosine to slow it down diagnostically, and it slowed down temporarily to a HR in the 70s, confirming sinus rhythm. I performed bedside critical care echocardiography which demonstrates grossly preserve biventricular function. in particular, RV is decompressed and well-functioning. IVC is completely collapsable. no pericardial effusion. I gave her 3L NS bolus ivf which improved her SBP to 110s and decreased her HR to 110s. She is afebrile. stat CBC shows anemia (history of recent femoral artery pseudoaneurysm), CMP demonstrates elevated AST and Alk phos, elevated lactate at 3.7. Cr elevated above baseline. Patient denies any complaints to me. she is mostly mozambican speaking, but communicates in basic [place]. specifically denies chest pain, shortness of breath, fever/chills, nausea, vomiting, abdominal pain, constipation, diarrhea. I discussed with her family, she has been eating and drinking well even up to today. ROS otherwise negative. 03/02 Patient is awake lying in bed in TRAV. On room air oxygen. T:103.2 this morning She was hypotensive overnight initially placed on Neosyn now off pressor with BP 147/67 with MAP 96. 03/03 No events overnight. Seems more awake and alert this morning. T: 100.2 at midnight. BP and HR better ( 119/58 with MAP 83mmHg). On no pressors. BC from 03/01: E.coli ESBL 03/04: clinically improving. slightly tachycardic. on appropriate therapy for her ESBL e. coli. denies complaints. hemodynamically stable. on room air. 03/05: Patient developed worsening respiratory distress yesterday and required endotracheal intubation and was placed on mechanical ventilation. Hypotension overnight for which patient was started on phenylephrine. Developed A. fib with RVR and was started on amiodarone gtt. 03/06 Patient remains sedated and intubated. Tmax 101.6, On Amio drip. 03/07 Patient remains intubated off sedation. s/p transfusion 2u PRBC yesterday. Tolerating tube feeds. Afebrile. Off Amio drip. 03/08 Patient remains intubated. T:100.9 last night. 03/09 No events overnight. Tolerated CPAP for approx 4 hrs yesterday. Off sedation. Afebrile. 03/10 No events overnight T:100.1 at 4am, Awake, patient was on CPAP for short time yesterday and placed back on PRVC mode for low TV and tachycardia. 03/11 No events overnight. Tolerated CPAP x 4hrs yesterday. T:100.6 yesterday. On no sedation. 03/12 Patient was extubated yesterday reintubated last night for resp distress and AMS. Afebrile. On Diprivan infusion for sedation. 03/13: Remains intubated critical, remains encephalopathy unresponsive off sedation. Afebrile EEG showed significant encephalopathy no seizures. Right subclavian central line placed, remains on Luis-Synephrine to keep map above 65 03/14: Remains encephalopathy again unresponsive. Eyes are open but no tracking did not follow commands. Remains leukopenic. Weaned off Luis-Synephrine. Not tolerating CPAP due to low tidal volume 03/15: Continues to fail CPAP due to low tidal volume. IV Levaquin added yesterday by ID for stenotrophomonas in the sputum. Remains encephalopathic did not follow commands but eyes are spontaneously open. I have requested neurology consult today 03/16: T-max 100.1. Currently 99. EEG has been performed. Does not follow commands. Tube feeds at 30 cc an hour. Positive BM. 03/17 Patient remains intubated on Precedex drip but awake. 03/18 T-current 100.7. Tolerating tube feeds at goal. Arousable the ventilator and follows command. Left side is chronically weaker. Discussed with Dr. Gutierrez /neurology. Reviewed MRI brain. Recommended evaluation by neurosurgery for abnormal MRI C-spine. Patient's CT surgeon at [facility] is Dr. Ku 03/19: T-max 100.7. Currently 99. Tachycardic. Tolerated CPAP trial. On the ventilator currently. Positive BM yesterday. 03/20 Patient was on Diprivan and Precedex drip overnight now off sedation. Afebrile. 03/21: no improvements. has been intubated for 17 days, and failed extubation quickly 03/12. needs trach and peg for further progress. 03/22: Afebrile. Intubation day #18. Patient currently contemplating trach and PEG options. Currently off dexmedetomidine drip. 03/23: Afebrile. Plan for PEG tube today. Awake and alert and interactive on the ventilator. Tube feeds are currently off. 03/24: Afebrile. Status post PEG tube by Dr. Orellana 03/23. Plan for percutaneous tracheostomy Dr. Serrano at 10 AM today 03/24. Tachycardic. Will replace phosphorus and magnesium this a.m. 03/25: Status post tracheostomy 03/[address] Serrano. Currently on PSV trial. No new issues overnight. Tube feeds at goal. 03/26: Low-grade temperatures overnight. Tube feeds have been restarted. Will start on CPAP trials today. 03/27: T-max 102.2. Blood cultures have been drawn today. Tube feeds of been resumed. Has been new concern about new altered mental status. Opens eyes but not following commands. MRI brain/C-spine ordered tonight 03/28: Afebrile today. MRI brain revealed 3 left parietal lesion/stable. MRI C- spine without significant change. Opens mouth to command for temperature today. Slight movement of bilateral upper extremities. 03/29: T-max 99.8. Currently afebrile. Slightly more interactive today. Tolerating tube feeds. Positive BM. 03/30: no changes. diarrhea which may be associated with continuous tube feeds: will transition to bolus tube feeds and add fiber to diet. 03/31: uop continues to be very high: straight caths with >1000mL q4h. will send urine SG and osms. sodium has remained stable for days- unlikely to be DI. could possibly be autodiuresis from chronic volume overload over the past hospitalization. otherwise, no other changes. 04/01: serum sodium dropped precipitously to 129 from 138 yesterday. urine output continues to be > 5L/day. urine studies and change in serum sodium are not consistent with DI. serum and urine osmolality not consistent with SIADH. could be cerebral salt wasting, but no clear reason for this either. clinically appears quite euvolemic, not dehydrated or volume overloaded. no peripheral edema anywhere. will be forced to increase sodium administration in the form of saline and ivf. Also, hgb dropped < 7 today. no signs of melena. no other evidence of bleeding. will send haptoglobin and LDH. 04/02: serum sodium improved with interventions. unclear if this was lab error or true, though today back to 136. TSH elevated, but free t4 appropriate (sick euthyroid syndrome). patient denies complaints. 04/03: sodium slowly downtrending. continues with vigorous diuresis. iv bactrim may be a cause of hyponatremia, but requires this for her Stenotrophomonas. no other concerns. rested on vent overnight. 04/04: sodium improving. no changes. continues to be weak. needs LTAC level care. - Time Spent with Patient Total time spent providing and/or coordinating discharge services: Greater than 30 minutes Exam Vital signs: Vital Signs 04/03/18 14:00 04/03/18 15:00 04/03/18 15:01 Temperature Pulse Rate 100 H 100 H 101 H Respiratory Rate 17 22 43 H Blood Pressure 99/57 L 137/67 Pulse Oximetry 100 100 100 04/03/18 15:30 04/03/18 16:00 04/03/18 17:00 Temperature Pulse Rate 100 H 102 H Respiratory Rate 16 4 L 20 Blood Pressure 104/57 L Pulse Oximetry 100 100 100 04/03/18 17:01 04/03/18 18:00 04/03/18 19:00 Temperature Pulse Rate 103 H 97 H 97 H Respiratory Rate 19 21 18 Blood Pressure 102/74 96/51 L 89/57 L Pulse Oximetry 100 100 100 04/03/18 20:00 04/03/18 20:01 04/03/18 20:29 Temperature 37.7 C H Pulse Rate 98 H 98 H 99 H Respiratory Rate 15 16 18 Blood Pressure 110/59 L 110/59 L 100/60 Pulse Oximetry 100 100 100 04/03/18 21:00 04/03/18 21:10 04/03/18 22:00 Temperature Pulse Rate 101 H 102 H Respiratory Rate 26 H 26 H 24 Blood Pressure 94/61 L 93/59 L Pulse Oximetry 100 100 100 04/03/18 23:00 04/04/18 00:00 04/04/18 00:01 Temperature 37.0 C Pulse Rate 105 H 106 H 107 H Respiratory Rate 26 H 23 23 Blood Pressure 96/60 L 121/69 121/69 Pulse Oximetry 100 100 100 04/04/18 01:00 04/04/18 02:00 04/04/18 03:00 Temperature Pulse Rate 111 H 112 H 115 H Respiratory Rate 26 H 25 H 28 H Blood Pressure 117/77 115/62 114/73 Pulse Oximetry 100 100 100 04/04/18 04:00 04/04/18 04:03 04/04/18 05:00 Temperature 38.2 C H Pulse Rate 117 H 106 H Respiratory Rate 29 H 19 32 H Blood Pressure 113/76 Pulse Oximetry 100 100 100 04/04/18 05:01 04/04/18 06:00 04/04/18 07:00 Temperature Pulse Rate 107 H 96 H 92 H Respiratory Rate 31 H 19 17 Blood Pressure 119/79 103/62 98/54 L Pulse Oximetry 96 100 100 04/04/18 07:40 04/04/18 08:00 04/04/18 09:00 Temperature 36.1 C L Pulse Rate 93 H 89 Respiratory Rate 18 16 16 Blood Pressure 111/67 100/58 L Pulse Oximetry 100 100 100 04/04/18 10:00 04/04/18 11:00 04/04/18 11:58 Temperature Pulse Rate 92 H 95 H Respiratory Rate 26 H 31 H 28 H Blood Pressure 103/58 L 91/55 L Pulse Oximetry 100 100 100 04/04/18 12:00 04/04/18 13:00 Temperature 36.0 C L Pulse Rate 95 H 97 H Respiratory Rate 27 H 33 H Blood Pressure 90/57 L 105/57 L Pulse Oximetry 100 100 Intake & Output 04/03/18 04/04/18 04/04/18 18:59 06:59 18:59 Intake Total 1523 / 1523 1360 / 1360 Output Total 2250 / 2250 1325 / 1325 Balance -727 / -727 35 / 35 Weight 57.5 kg Intake: IV 1523 / 1523 1000 / 1000 NS Inj 1,000 ML @ 100 mls/hr IV 1000 / 1000 1000 / 1000 .CONT .Q10H KARINA Rx#:[id number] Bactrim Inj 368 MG In D5W Inj 523 / 523 500 ML @ 348.667 mls/hr IV.SIG Q12H KARINA Rx#:[id number] Oral 0 / 0 Tube Feeding 360 / 360 Tube Irrigant 0 / 0 Water Bolus Amount 0 / 0 Other 0 / 0 Output: Urine 0 / 0 Stool 0 / 0 Urine/Stool Mix 0 / 0 Urine Amount (Catheter) 2250 / 2250 1325 / 1325 Straight 2250 / 2250 1325 / 1325 Other: # Voids 0 Date of Last Bowel Movement 04/03/18 04/04/18 04/04/18 # Bowel Movements 5 3 # Incontinent Bowel Movements 3 # Emeses 0 # Oral Regurgitations 0 Results Procedures completed during hospitalization: trach peg Labs on day of discharge: Labs from last 24 hours 04/04/18 04/04/18 04/04/18 09:21 04:05 04:05 WBC 8.8 RBC 2.89 L Hgb 8.7 L Hct 26.0 L MCV 89.9 MCH 30.0 MCHC 33.3 RDW 16.2 Plt Count 256 MPV 8.7 Sodium 137 Potassium 4.3 Chloride 108 H Carbon Dioxide 22.8 Anion Gap 6 BUN 20 H Creatinine 0.21 L Estimated GFR Greater than 89 POC Glucose 98 Random Glucose 104 Calcium 7.8 L 04/03/18 20:13 WBC RBC Hgb Hct MCV MCH MCHC RDW Plt Count MPV Sodium Potassium Chloride Carbon Dioxide Anion Gap BUN Creatinine Estimated GFR POC Glucose 101 Random Glucose Calcium Preliminary micro results at discharge 03/24/18 14:15 Fungal Culture - Preliminary Bronchial Washings - Right Lower Lobe No growth in 1 week 03/24/18 14:15 Mycobacterial Culture - Preliminary Bronchial Washings - Right Lower Lobe No growth in 1 week - Impressions ITS Impressions Head CT 03/12/18 06:59 CONCLUSION: 1. No acute intracranial abnormality. 2. Minimal fluid in the mastoid air cells. Abdomen X-Ray 03/21/18 00:00 CONCLUSION: Nasogastric or orogastric tube tip in distal stomach. Cervical Spine MRI 03/27/18 00:00 CONCLUSION: 1. Persistent well-defined area of fluid signal in the cord at the C5-C6 level. There is more ill-defined suspected edema within the cord at the C4-C7 levels. This appearance is unchanged when compared to the prior MRI examination. 2. Status post laminectomy at the C4-C7 levels with postsurgical hardware seen at the C4-T1 levels. 3. Prominence of the posterior epidural space at the C4-C6 levels with a possible dural defect posteriorly seen at the C5-C6 level. This appearance is unchanged. A small amount of fluid is seen to extend posterior to the suspected dural defect. 4. Persistent prevertebral soft tissue swelling. 1. Head MRI 03/27/18 00:00 CONCLUSION: 1. 2 small persistent enhancing lesions without significant mass effect or surrounding edema seen in the left occipital and left parietal lobe. These are unchanged. Multiple lesions raises the possibility of metastatic disease versus infection or underlying vascular malformations such as cavernous angiomas. Significant mass effect or edema is not seen. 2. Scattered focal areas of demyelination the cerebral white matter. Chest X-Ray 04/03/18 12:30 CONCLUSION: Increasing consolidation on the right, decreased on the left. Small effusion. Discharge Plan - Discharge Disposition Patient Disposition: 70 Transfer To Other Facility - Discharge Condition Condition: Stable - Discharge Order Discharge Orders: Discharge Order (Routine); Ordered 04/04/18 Ordered By: Jonathon Rodriguez - Discharge Details Anticipated Discharge Date: 04/04/18 Discharge Comment: to [facility] - Physicians Team Attending Provider: Jonathon Rodriguez Other Providers: Ha Contreras MD ; Naina Borjas ; Paramjit Arellano MD , PhD ; Henry Newberry MD ; Gume Sutton MD ; Vinicio Crow MD ; Anselmo Douglas MD ; [facility] ; Nida Maxwell MD - Rxs /Orders / Referrals /Forms Prescriptions: New albuterol sulfate 2.5 mg /3 mL (0.083 %) Solution For Nebulization 2.5 mg NEB Q2HR NEB PRN (Reason: Dyspnea) RF: 0 tecrggzo-gacrwowvz-jtfviuy bmb [Jamal] 7-7-1.5 gram Powder In Packet 1 packet G-Tube BID RF: 0 cyclobenzaprine 10 mg Tablet 5 mg PO TID RF: 0 gabapentin [Neurontin] 300 mg Capsule 600 mg PO TID RF: 0 insulin regular human [Novolin R Regular U-100 Insuln] 100 unit/mL Solution 0 units Sub-Q BID@0800,2000 RF: 0 lansoprazole [Prevacid SoluTab] 30 mg Tablet,Disintegrat, Delay Rel 30 mg NG/OG DAILY RF: 0 levothyroxine [Synthroid] 50 mcg Tablet 50 mcg PO DAILY@0600 RF: 0 metoprolol tartrate 25 mg Tablet 25 mg PO Q6H RF: 0 oxycodone 20 mg/mL Concentrate 2.5 mg G-Tube Q6H PRN (Reason: Breakthrough Pain) RF: 0 pravastatin 20 mg Tablet 20 mg PO DAILY RF: 0 sodium chloride 1 gram Tablet 2 gm PO Q8H RF: 0 sulfamethoxazole-trimethoprim 400-80 mg/5 mL Solution 368 mg IV Q12H RF: 0 tramadol [Ultram] 50 mg Tablet 50 mg PO Q8H PRN (Reason: PAIN 6-10) RF: 0 Continue Bactrim DS 1 tab PO BID Ditropan XL 5 mg PO Q8HR Multiple Vitamins 1 tab PO DAILY Discontinued wsvyfboezr-pjmhucmzzabtz-eryb 1 tab PO Q4HR cyclobenzaprine 5 mg PO TID famotidine 20 mg PO BID gabapentin 600 mg PO TID levothyroxine 50 mcg PO DAILY Lopressor 25 mg PO BID lovastatin 20 mg PO DAILY metformin 500 mg PO BID mycophenolate mofetil 1,000 mg PO BID prednisone See Label Instructions .ROUTE .COMPLEX tramadol 50 mg PO Q8HR Referrals: CESAR EL MD [Other] - See Instructions
[2018-04-04 14:27] VITALS: PULSE 100
== END 2018-04-04 16:00 ==
LOC: HIMC 09:06
PROVIDERS: ADMIT Internal Medicine Critical Care Medicine; ATTEND Internal Medicine Critical Care Medicine